=== PATIENT | male | born 1955 | race Two or more races ===

== ENCOUNTER 2017-05-11 19:19 | Inpatient (IN) | payer MEDICARE, MEDICAID ==
[~2017-05-11] VITALS: Ht 185.4 cm; Wt 86.2 kg
[2017-05-11 19:20] VITALS: BP 166/80
[2017-05-11] MEDS ORDERED: ASPIR 8181 MG GT (19:34)
[2017-05-11] MEDS ORDERED: VITAMIN C500 M1 GT (19:34)
[2017-05-11] MEDS ORDERED: ATORVASTATIN CA10 MG GT (19:34)
[2017-05-11] MEDS ORDERED: CARDIZEM30 M1 PO (19:34)
[2017-05-11] MEDS ORDERED: VITAMIN D35000 UNIT GT (19:34)
[2017-05-11] MEDS ORDERED: SYNTHROID25 MCG GT (19:34)
[2017-05-11] MEDS ORDERED: LISINOPRIL40 MG GT (19:34)
[2017-05-11] MEDS ORDERED: HYDRALAZINE HC100 MG GT (19:34)
[2017-05-11] MEDS ORDERED: CLONIDINE1 EAC1 TD (19:34)
[2017-05-11] MEDS ORDERED: METOPROLOL SUC100 MG GT (19:34)
[2017-05-11] MEDS ORDERED: FERROUS SU220 MG/53 GT (19:34)
[2017-05-11] MEDS ORDERED: OMEPRAZOLE20 M3 GT (19:34)
[2017-05-11] MEDS ORDERED: METFORMIN HCL500 M1 GT (19:34)
[2017-05-11] MEDS ORDERED: Unasyn 3gm Inj ONE (19:58)
[2017-05-11 20:04] LABS: BASOPHILS % (AUTO) 0.8 % (0.0-2.0); EOSINOPHILS % (AUTO) 2.9 % (0.0-3.0); LYMPHOCYTES % (AUTO) 16.7 % (20.0-45.0); MEAN CORPUSCULAR HEMOGLOBIN 27.8 PG (27.0-31.0); MEAN CORPUSCULAR HGB CONC 29.8 G/DL (32.0-36.0); MEAN CORPUSCULAR VOLUME 93 FL (80-99); MEAN PLATELET VOLUME 6.3 FL (6.5-10.1); MONOCYTES % (AUTO) 5.2 % (1.0-10.0); NEUTROPHILS % (AUTO) 74.4 % (45.0-75.0); PLATELET COUNT 287 K/UL (150-450); RED BLOOD COUNT 4.31 M/UL (4.70-6.10); RED CELL DISTRIBUTION WIDTH 14.1 % (11.6-14.8); WHITE BLOOD COUNT 9.9 K/UL (4.8-10.8)
[2017-05-11] MEDS: Ampicillin/Sulbactam Sod 3 GM in NS 110 ML IV SCH (20:14)
[2017-05-11 20:19] LABS: ANION GAP 9 mmol/L (5-15); CALCIUM 9.2 MG/DL (8.5-10.1); CARBON DIOXIDE 30 MMOL/L (21-32); CHLORIDE 115 MMOL/L (98-107); GLOMERULAR FILTRATION RATE 33.8 mL/min (>60); POTASSIUM 4.5 MMOL/L (3.5-5.1); SODIUM 153 MMOL/L (136-145)
[2017-05-11 20:20] VITALS: BP 167/78
[2017-05-11 20:34] LABS: ALANINE AMINOTRANSFERASE 37 U/L (12-78); ALBUMIN/GLOBULIN RATIO 0.9 (1.0-2.7); ASPARTATE AMINO TRANSFERASE 19 U/L (15-37); CKMB 1.5 NG/ML (0.0-3.6); MAGNESIUM 2.3 MG/DL (1.8-2.4); PHOSPHORUS 3.7 MG/DL (2.5-4.9); TOTAL PROTEIN 6.9 G/DL (6.4-8.2)
[2017-05-11 20:36] LABS: REFLEX LACTIC ACID YES OR NO YES
[2017-05-11 21:43] LABS: APPEARANCE,URINE CLEAR; KETONES,URINE NEGATIVE (NEGATIVE); LEUKOCYTE ESTERASE ,URINE 1+ (NEGATIVE); NITRITE,URINE NEGATIVE (NEGATIVE); PH,URINE 7 (4.5-8.0); PROTEIN,URINE 3+ (NEGATIVE); UROBILINOGEN,URINE NORMAL MG/DL (0.0-1.0)
[2017-05-11] MEDS ORDERED: Morphine Sulfate 2mg/ml Inj IVP PRN (21:45)
[2017-05-11] MEDS ORDERED: Miralax 17gm pkt ORAL PRN (21:45)
[2017-05-11] MEDS ORDERED: Nitroglycerin Subl 0.4mg tab SL PRN (21:45)
[2017-05-11] MEDS ORDERED: Mylanta II UD 30ml ORAL PRN (21:45)
[2017-05-11] MEDS ORDERED: Albuterol/Ipratropium 3ml neb HHN PRN (21:45)
[2017-05-11] MEDS ORDERED: Enalaprilat 2.5mg/2ml Inj IV PRN (21:45)
[2017-05-11] MEDS ORDERED: Ketorolac 30mg Inj IV PRN (21:45)
[2017-05-11 21:50] VITALS: BP 162/74
[2017-05-11 21:54] LABS: BACTERIA,URINE FEW /HPF; SQUAMOUS EPITHELIAL CELL,UR OCCASIONAL /LPF (NONE/OCC)
--- NOTE | 2017-05-11 22:11 | Emergency Room Report ---
History of Present Illness General Chief Complaint: Altered Mental Status Source: Medical Record, EMS, Caregiver Present Illness HPI Patient is a 62-year-old male presented after acute onset of altered mental status. Patient reportedly had normally verbal and somewhat confused. The patient poorly had acute onset of alteration of his mental status. Patient not to been have sick prior to the episode of altered mental status. Patient had not been having any fever. Patient was noted to be having difficulty with speech. He is G-tube dependent. History is limited by patient's mental status Allergies: Coded Allergies: No Known Allergies (Unverified , 05/11/17) Patient History Past Medical History: see triage record Reviewed Nursing Documentation: PMH: Agreed, PSxH: Agreed Nursing Documentation-PMH Hx Hypertension: Yes - atherosclerosis Hx Asthma: Yes - hypothyroidism, vit d deficiency, hyperlipidemia Hx Diabetes: Yes - type 2 dm Hx Cerebrovascular Accident: Yes - hemiplegia, hemiparesis right side Review of Systems All Other Systems: limited - by mental status Physical Exam Vital Signs Date Time Temp Pulse Resp B/P (MAP) Pulse Ox O2 Delivery O2 Flow Rate FiO2 05/11/17 19:12 97.7 80 20 166/80 96 Room Air Sp02 EP Interpretation: reviewed, normal General Appearance: alert, mild distress, Chronically Ill Head: atraumatic ENT: normal voice, dry mucus membranes Neck: normal inspection, supple, no bony tend, limited range of motion Respiratory: normal inspection, lungs clear, normal breath sounds, no respiratory distress, no retraction, no wheezing Cardiovascular #1: regular rate, rhythm, no edema Gastrointestinal: normal inspection, normal bowel sounds, non tender, soft, no guarding, no hernia, other - gtube dependent Genitourinary: no CVA tenderness Musculoskeletal: decreased range of motion Neurologic: normal inspection, alert, responsive, aphasia, motor weakness Psychiatric: mood/affect normal Skin: normal inspection, no rash Medical Decision Making Diagnostic Impression: Primary Impression: Altered mental status Additional Impressions: Lactic acidosis Urinary tract infection Hypernatremia Dehydration Diabetes ER Course Patient presented for altered mental status. Differential diagnosis included but was not limited to ischemic stroke, subarachnoid hemorrhage, hypoglycemia, spinal cord injury, neurodegenerative disorder, urinary tract infection, hypoxemia.Because of complexity of patient's case laboratory testing and imaging studies were ordered. The patient was noted to have evidence of the difficulty with speech. CT the head read by radiology showed diffuse atrophy. The patient was given aspirin rectal for possible CVA. The patient admitted for further evaluation and treatment altered mental status. The patient is being admitted to [facility] due to acuity. EKG interpreted by me showed diffuse T wave inversion consistent with recent CVA versus cardiac ischemia. The patient was discussed with Dr. Martina Morales due to primary physician. Labs Test 05/11/17 19:45 05/11/17 20:25 05/11/17 21:30 White Blood Count 9.9 K/UL (4.8-10.8) Red Blood Count 4.31 M/UL (4.70-6.10) Hemoglobin 12.0 G/DL (14.2-18.0) Hematocrit 40.2 % (42.0-52.0) Mean Corpuscular Volume 93 FL (80-99) Mean Corpuscular Hemoglobin 27.8 PG (27.0-31.0) Mean Corpuscular Hemoglobin Concent 29.8 G/DL (32.0-36.0) Red Cell Distribution Width 14.1 % (11.6-14.8) Platelet Count 287 K/UL (150-450) Mean Platelet Volume 6.3 FL (6.5-10.1) Neutrophils (%) (Auto) 74.4 % (45.0-75.0) Lymphocytes (%) (Auto) 16.7 % (20.0-45.0) Monocytes (%) (Auto) 5.2 % (1.0-10.0) Eosinophils (%) (Auto) 2.9 % (0.0-3.0) Basophils (%) (Auto) 0.8 % (0.0-2.0) Prothrombin Time 10.0 SEC (9.30-11.50) Prothromb Time International Ratio 1.0 (0.9-1.1) Activated Partial Thromboplast Time 23 SEC (23-33) Sodium Level 153 MMOL/L (136-145) Potassium Level 4.5 MMOL/L (3.5-5.1) Chloride Level 115 MMOL/L (98-107) Carbon Dioxide Level 30 MMOL/L (21-32) Anion Gap 9 mmol/L (5-15) Blood Urea Nitrogen 69 mg/dL (7-18) Creatinine 2.0 MG/DL (0.55-1.30) Estimat Glomerular Filtration Rate 33.8 mL/min (>60) Glucose Level 183 MG/DL (74-106) Calcium Level 9.2 MG/DL (8.5-10.1) Phosphorus Level 3.7 MG/DL (2.5-4.9) Magnesium Level 2.3 MG/DL (1.8-2.4) Total Bilirubin 0.2 MG/DL (0.2-1.0) Aspartate Amino Transf (AST/SGOT) 19 U/L (15-37) Alanine Aminotransferase (ALT/SGPT) 37 U/L (12-78) Alkaline Phosphatase 90 U/L (46-116) Total Creatine Kinase 59 U/L (26-308) Creatine Kinase MB 1.5 NG/ML (0.0-3.6) Creatine Kinase MB Relative Index 2.5 Troponin I 0.073 ng/mL (0.000-0.056) Total Protein 6.9 G/DL (6.4-8.2) Albumin 3.2 G/DL (3.4-5.0) Globulin 3.7 g/dL Albumin/Globulin Ratio 0.9 (1.0-2.7) Lactic Acid Level 2.50 mmol/L (0.66-2.22) Urine Color Pale yellow Urine Appearance Clear Urine pH 7 (4.5-8.0) Urine Specific [place] 1.010 (1.005-1.035) Urine Protein 3+ (NEGATIVE) Urine Glucose (UA) Negative (NEGATIVE) Urine Ketones Negative (NEGATIVE) Urine Occult Blood 1+ (NEGATIVE) Urine Nitrite Negative (NEGATIVE) Urine Bilirubin Negative (NEGATIVE) Urine Urobilinogen Normal MG/DL (0.0-1.0) Urine Leukocyte Esterase 1+ (NEGATIVE) Urine RBC 2-4 /HPF (0 - 0) Urine WBC 5-10 /HPF (0 - 0) Urine Squamous Epithelial Cells Occasional /LPF Urine Bacteria Few /HPF (NONE) Last Vital Signs Date Time Temp Pulse Resp B/P (MAP) Pulse Ox O2 Delivery O2 Flow Rate FiO2 05/11/17 19:12 97.7 80 20 166/80 96 Room Air Status: unchanged Disposition: ADMITTED INPATIENT Condition: Serious Alistair Ley May 11, 2017 22:11
[2017-05-12] VITALS (7 sets, daily range): BP systolic 156–193; BP diastolic 83–108
[2017-05-12] MEDS ORDERED: Unasyn 3gm Inj ONE (01:48)
[2017-05-12] MEDS: D5 1/2NS 1,000 ML IV SCH ×3 (01:53→21:35)
[2017-05-12] MEDS: Ampicillin/Sulbactam Sod 3 GM in NS 110 ML IV SCH (01:53)
[2017-05-12] MEDS ORDERED: TRADJENTA5 MG GT (01:54)
[2017-05-12] MEDS ORDERED: MULTI-DELYN237 ML GT (01:54)
[2017-05-12] MEDS ORDERED: COLACE100 MG GT (02:15)
[2017-05-12] MEDS ORDERED: MILK OF MA400 MG/51 GT (02:15)
[2017-05-12] MEDS ORDERED: HUMULIN R100 UNIT/1 SUBQ (02:15)
[2017-05-12] MEDS ORDERED: LEVEMIR FL100 UNIT/1 SUBQ (02:15)
[2017-05-12] MEDS ORDERED: DULCOLAX10 MG RC (02:15)
[2017-05-12] MEDS ORDERED: TYLENOL EXTRA500 MG GT (02:15)
[2017-05-12] MEDS ORDERED: TYLENOL325 MG GT (02:15)
[2017-05-12] MEDS ORDERED: FLEET ENEMA133 ML RECTAL (02:15)
[2017-05-12 04:53] LABS: BASOPHILS % (AUTO) 0.7 % (0.0-2.0); LYMPHOCYTES % (AUTO) 18.8 % (20.0-45.0); MEAN CORPUSCULAR HGB CONC 32.4 G/DL (32.0-36.0); MEAN CORPUSCULAR VOLUME 92 FL (80-99); MEAN PLATELET VOLUME 6.9 FL (6.5-10.1); MONOCYTES % (AUTO) 4.7 % (1.0-10.0); NEUTROPHILS % (AUTO) 71.8 % (45.0-75.0); PLATELET COUNT 280 K/UL (150-450); RED BLOOD COUNT 3.99 M/UL (4.70-6.10); RED CELL DISTRIBUTION WIDTH 14.7 % (11.6-14.8); WHITE BLOOD COUNT 8.6 K/UL (4.8-10.8)
[2017-05-12 05:25] LABS: ALANINE AMINOTRANSFERASE 32 U/L (12-78); ALBUMIN/GLOBULIN RATIO 0.8 (1.0-2.7); ANION GAP 10 mmol/L (5-15); ASPARTATE AMINO TRANSFERASE 18 U/L (15-37); CALCIUM 8.6 MG/DL (8.5-10.1); CARBON DIOXIDE 27 MMOL/L (21-32); CHLORIDE 116 MMOL/L (98-107); CHOLESTEROL 167 MG/DL (< 200); CHOLESTEROL/HDL RATIO 4.5 (3.3-4.4); CREATININE 1.8 MG/DL (0.55-1.30); GLOMERULAR FILTRATION RATE 38.2 mL/min (>60); POTASSIUM 3.9 MMOL/L (3.5-5.1); SODIUM 153 MMOL/L (136-145); THYROID STIMULATING HORMONE 1.606 uiU/mL (0.358-3.740); TOTAL PROTEIN 6.6 G/DL (6.4-8.2)
[2017-05-12] MEDS: NovoLOG Insulin Flexpen SUBQ SCH ×4 (07:02→23:47)
[2017-05-12] MEDS ORDERED: Metoprolol Succinate XL 100mg tab ORAL SCH (09:00)
--- NOTE | 2017-05-12 09:06 | Consultation ---
History of Present Illness General Date patient seen: May 12, 2017 Chief Complaint: Altered Mental Status Referring physician: Dr. Morales Reason for Consultation: inpateint management Present Illness HPI 62-year-old male with hx of HTN, CVA, PEG, bed bound, custodial resident, hemiplegia, presented after acute onset of altered mental status and was somewhat confused. Patient had not been having any fever. He was found to be in renal failure with hyperglycemia. He also had increased troponin. He is admitted to [facility] for further evaluation. He looks comfortable, somnolent. Not responding to verbal stimuli Allergies: Coded Allergies: No Known Allergies (Unverified , 05/11/17) Medication History Scheduled Ascorbic Acid* (Vitamin C*), 500 MG GT TWICE A DAY, (Reported) Aspirin* (Aspir 81*), 81 MG GT DAILY, (Reported) Atorvastatin Calcium* (Lipitor*), 10 MG GT BEDTIME, (Reported) Cholecalciferol (Vitamin D3) (Vitamin D3), 5,000 UNIT GT weekly, (Reported) Diltiazem Hcl* (Cardizem*), Unknown Dose PO QID, (Reported) Docusate Sodium* (Colace*), 100 MG GT DAILY, (Reported) Ferrous Sulfate (Ferrous Sulfate), 220 MG GT BID, (Reported) Hydralazine Hcl* (Hydralazine Hcl*), 100 MG GT BID, (Reported) Insulin Detemir (Levemir Flexpen), 24 SUBQ EVERY 12 HOURS, (Reported) Insulin Regular, Human (Humulin R), 0 SUBQ BEFORE MEALS AND HS, (Reported) Levothyroxine Sodium* (Synthroid*), 50 MCG GT DAILY, (Reported) Linagliptin (Tradjenta), 5 MG GT DAILY, (Reported) Lisinopril* (Lisinopril*), 40 MG GT DAILY, (Reported) Metformin Hcl* (Metformin Hcl*), 500 MG GT THREE TIMES A DAY, (Reported) Metoprolol Succinate* (Metoprolol Succinate*), 100 MG GT BID, (Reported) Multivitamin Liquid* (Multi-Delyn*), 5 ML GT DAILY, (Reported) Na Phos,M-B/Na Phos,Di-Ba* (Fleet Enema*), 133 ML RECTAL PRN, (Reported) Omeprazole (Omeprazole), 20 MG GT DAILY, (Reported) Scheduled PRN Acetaminophen (Tylenol), 325 MG GT Q6H PRN for Prn Pain/Headache/Temp > 101, ( Reported) Acetaminophen* (Tylenol Extra Strength*), 500 MG GT Q6H PRN for Mild Pain/Temp > 100.5, (Reported) Bisacodyl (Dulcolax), 10 MG RC DAILY PRN for Constipation, (Reported) Magnesium Hydroxide* (Milk Of Magnesia*), 30 ML GT BEDTIME PRN for Constipation, (Reported) Miscellaneous Medications Clonidine (Clonidine), 1 EACH TD, (Reported) Patient History Healthcare decision maker ZENA MARR Resuscitation status Full Code Advanced Directive on File No Past Medical/Surgical History Past Medical/Surgical History: (1) History of CVA (cerebrovascular accident) (2) Hypertension (3) Feeding by G-tube (4) Diabetes Review of Systems All Other Systems: negative except mentioned in HPI Physical Exam General Appearance: WD/WN, no apparent distress Lines, tubes and drains: peripheral, central line HEENT: normocephalic, atraumatic Neck: non-tender, normal alignment Respiratory/Chest: chest wall non-tender, lungs clear, normal breath sounds Breasts: no masses Cardiovascular/Chest: normal peripheral pulses, normal rate Genitourinary/Rectal: normal rectal exam Extremities: normal range of motion Last 24 Hour Vital Signs Date Time Temp Pulse Resp B/P (MAP) Pulse Ox O2 Delivery O2 Flow Rate FiO2 05/12/17 05:30 18 156/94 96 Room Air 05/12/17 04:46 197/101 05/12/17 04:00 99.0 98 18 193/101 96 Room Air 05/12/17 04:00 95 05/12/17 00:00 85 05/12/17 00:00 85 05/12/17 00:00 98.2 89 20 156/83 96 Room Air 05/11/17 22:20 97.6 80 16 162/74 97 Room Air 05/11/17 21:50 97.6 80 16 162/74 97 Room Air 05/11/17 20:20 82 14 167/78 98 Room Air 05/11/17 19:20 97.7 20 166/80 96 Room Air 05/11/17 19:12 97.7 80 20 166/80 96 Room Air Intake and Output 11/25/17 11/26/17 19:00 07:00 Intake Total 100 ml Balance 100 ml IV Total 100 ml Laboratory Tests Test 05/11/17 19:45 05/11/17 20:25 05/11/17 21:30 05/12/17 04:15 White Blood Count 9.9 K/UL (4.8-10.8) 8.6 K/UL (4.8-10.8) Red Blood Count 4.31 M/UL (4.70-6.10) L 3.99 M/UL (4.70-6.10) L Hemoglobin 12.0 G/DL (14.2-18.0) L 12.0 G/DL (14.2-18.0) L Hematocrit 40.2 % (42.0-52.0) L 36.9 % (42.0-52.0) L Mean Corpuscular Volume 93 FL (80-99) 92 FL (80-99) Mean Corpuscular Hemoglobin 27.8 PG (27.0-31.0) 30.0 PG (27.0-31.0) Mean Corpuscular Hemoglobin Concent 29.8 G/DL (32.0-36.0) L 32.4 G/DL (32.0-36.0) Red Cell Distribution Width 14.1 % (11.6-14.8) 14.7 % (11.6-14.8) Platelet Count 287 K/UL (150-450) 280 K/UL (150-450) Mean Platelet Volume 6.3 FL (6.5-10.1) L 6.9 FL (6.5-10.1) Neutrophils (%) (Auto) 74.4 % (45.0-75.0) 71.8 % (45.0-75.0) Lymphocytes (%) (Auto) 16.7 % (20.0-45.0) L 18.8 % (20.0-45.0) L Monocytes (%) (Auto) 5.2 % (1.0-10.0) 4.7 % (1.0-10.0) Eosinophils (%) (Auto) 2.9 % (0.0-3.0) 4.0 % (0.0-3.0) H Basophils (%) (Auto) 0.8 % (0.0-2.0) 0.7 % (0.0-2.0) Prothrombin Time 10.0 SEC (9.30-11.50) Prothromb Time International Ratio 1.0 (0.9-1.1) Activated Partial Thromboplast Time 23 SEC (23-33) Sodium Level 153 MMOL/L (136-145) H 153 MMOL/L (136-145) H Potassium Level 4.5 MMOL/L (3.5-5.1) 3.9 MMOL/L (3.5-5.1) Chloride Level 115 MMOL/L (98-107) H 116 MMOL/L (98-107) H Carbon Dioxide Level 30 MMOL/L (21-32) 27 MMOL/L (21-32) Anion Gap 9 mmol/L (5-15) 10 mmol/L (5-15) Blood Urea Nitrogen 69 mg/dL (7-18) H 57 mg/dL (7-18) H Creatinine 2.0 MG/DL (0.55-1.30) H 1.8 MG/DL (0.55-1.30) H Estimat Glomerular Filtration Rate 33.8 mL/min (>60) 38.2 mL/min (>60) Glucose Level 183 MG/DL (74-106) H 239 MG/DL (74-106) H Lactic Acid Level 2.60 mmol/L (0.66-2.22) H 2.50 mmol/L (0.66-2.22) H Uric Acid 6.0 MG/DL (2.6-7.2) Calcium Level 9.2 MG/DL (8.5-10.1) 8.6 MG/DL (8.5-10.1) Phosphorus Level 3.7 MG/DL (2.5-4.9) Magnesium Level 2.3 MG/DL (1.8-2.4) Total Bilirubin 0.2 MG/DL (0.2-1.0) 0.2 MG/DL (0.2-1.0) Aspartate Amino Transf (AST/SGOT) 19 U/L (15-37) 18 U/L (15-37) Alanine Aminotransferase (ALT/SGPT) 37 U/L (12-78) 32 U/L (12-78) Alkaline Phosphatase 90 U/L (46-116) 82 U/L (46-116) Total Creatine Kinase 59 U/L (26-308) Creatine Kinase MB 1.5 NG/ML (0.0-3.6) Creatine Kinase MB Relative Index 2.5 Troponin I 0.073 ng/mL (0.000-0.056) 0.059 ng/mL (0.000-0.056) Total Protein 6.9 G/DL (6.4-8.2) 6.6 G/DL (6.4-8.2) Albumin 3.2 G/DL (3.4-5.0) L 3.0 G/DL (3.4-5.0) L Globulin 3.7 g/dL 3.6 g/dL Albumin/Globulin Ratio 0.9 (1.0-2.7) L 0.8 (1.0-2.7) L Urine Color Pale yellow Urine Appearance Clear Urine pH 7 (4.5-8.0) Urine Specific [place] 1.010 (1.005-1.035) Urine Protein 3+ (NEGATIVE) H Urine Glucose (UA) Negative (NEGATIVE) Urine Ketones Negative (NEGATIVE) Urine Occult Blood 1+ (NEGATIVE) H Urine Nitrite Negative (NEGATIVE) Urine Bilirubin Negative (NEGATIVE) Urine Urobilinogen Normal MG/DL (0.0-1.0) Urine Leukocyte Esterase 1+ (NEGATIVE) H Urine RBC 2-4 /HPF (0 - 0) H Urine WBC 5-10 /HPF (0 - 0) H Urine Squamous Epithelial Cells Occasional /LPF Urine Bacteria Few /HPF (NONE) Urine Eosinophils Negative Urine Random Sodium 47 MEQ/L (20-110) Urine Potassium Timed 62 mmol/L (12-62) Urine Opiates Screen Negative (NEGATIVE) Urine Barbiturates Screen Negative (NEGATIVE) Phencyclidine (PCP) Screen Negative (NEGATIVE) Urine Amphetamines Screen Negative (NEGATIVE) Urine Benzodiazepines Screen Negative (NEGATIVE) Urine Cocaine Screen Negative (NEGATIVE) Urine Marijuana (THC) Screen Negative (NEGATIVE) Hemoglobin A1c 7.0 % (4.3-6.0) H Triglycerides Level 307 MG/DL (30-150) H Cholesterol Level 167 MG/DL (< 200) LDL Cholesterol 80 mg/dL (<100) HDL Cholesterol 37 MG/DL (40-60) L Cholesterol/HDL Ratio 4.5 (3.3-4.4) H Thyroid Stimulating Hormone (TSH) 1.606 uiU/mL (0.358-3.740) Height (Feet): 6 Height (Inches): 1.00 Weight (Pounds): 190 Medications Current Medications Medications (Trade) Dose Ordered Sig/Willem Route PRN Reason Start Time Stop Time Status Last Admin Dose Admin Acetaminophen (Tylenol) 650 mg Q4H PRN ORAL T>100.5 F 05/11/17 21:45 06/10/17 21:44 Al Hydroxide/Mg Hydroxide (Mylanta II) 30 ml Q6H PRN ORAL dyspepsia 05/11/17 21:45 06/10/17 21:44 Albuterol/ Ipratropium (Albuterol/ Ipratropium) 3 ml Q4H PRN HHN Shortness of Breath 05/11/17 21:45 05/16/17 21:44 Ampicillin Sodium/ Sulbactam Sodium 3 gm/Sodium Chloride 110 ml @ 220 mls/hr Q6HR IVPB 05/12/17 09:00 05/19/17 08:59 Clonidine HCl (Catapres) 0.1 mg Q4H PRN ORAL sbp more than 160 05/11/17 21:45 06/10/17 21:44 05/12/17 04:46 Dextrose (Dextrose 50%) STAT PRN IV Hypoglycemia 05/11/17 21:45 06/10/17 21:44 Dextrose/Sodium Chloride 1,000 ml @ 100 mls/hr Q10H IV 05/12/17 02:00 06/11/17 01:59 05/12/17 01:53 Enalaprilat (Vasotec) 2.5 mg Q4H PRN IV sbp more than 200 05/11/17 21:45 06/10/17 21:44 Heparin Sodium (Porcine) (Heparin 5000 units/ml) 5,000 units EVERY 12 HOURS SUBQ 05/12/17 09:00 06/11/17 08:59 Insulin Aspart (NovoLOG) BEFORE MEALS AND HS SUBQ 05/12/17 06:30 06/11/17 06:29 05/12/17 07:02 Ketorolac Tromethamine (Toradol 30mg) 30 mg Q6H PRN IV Moderate Pain (Pain Scale 4-6) 05/11/17 21:45 05/16/17 21:44 Levothyroxine Sodium (Synthroid) 50 mcg ACBREAKFAST ORAL 05/12/17 06:30 06/11/17 06:29 05/12/17 07:02 Metoprolol Succinate (Toprol XL) 100 mg DAILY ORAL 05/12/17 09:00 06/11/17 08:59 Morphine Sulfate (Morphine Sulfate) 2 mg Q4H PRN IVP Severe Pain (Pain Scale 7-10) 05/11/17 21:45 05/18/17 21:44 Nitroglycerin (Ntg) 0.4 mg Q5M X 3 DOSES PRN SL Prn Chest Pain 05/11/17 21:45 06/10/17 21:44 Ondansetron HCl (Zofran) 4 mg Q6H PRN IVP Nausea & Vomiting 05/11/17 21:45 06/10/17 21:44 Polyethylene Glycol (Miralax) 17 gm HSPRN PRN ORAL Constipation 05/11/17 21:45 06/10/17 21:44 Temazepam (Restoril) 15 mg HSPRN PRN ORAL Insomnia 05/11/17 21:45 05/18/17 21:44 Assessment/Plan Problem List: (1) Acute encephalopathy ICD Codes: G93.40 - Encephalopathy, unspecified SNOMED: 3342240 (2) Non-ST elevation (NSTEMI) myocardial infarction ICD Codes: I21.4 - Non-ST elevation (NSTEMI) myocardial infarction SNOMED: 643777193 (3) ATN (acute tubular necrosis) ICD Codes: N17.0 - Acute kidney failure with tubular necrosis SNOMED: 53333633 (4) Acute hyperglycemia ICD Codes: R73.9 - Hyperglycemia, unspecified SNOMED: 853446249 (5) Feeding by G-tube ICD Codes: Z93.1 - Gastrostomy status SNOMED: 076605385, 979986412 (6) Hypertension ICD Codes: I10 - Essential (primary) hypertension SNOMED: 81818220 Assessment/Plan iv fluids check electrolytes, urine and serum sliding scale echo troponin alvarado cultures dvt prophylaxis JESSE ZAVALA May 12, 2017 09:06
--- NOTE | 2017-05-12 09:49 | Consultation ---
Consult Note Consult Note Patient is a 62-year-old male presented after acute onset of altered mental status. Patient reportedly had normally verbal and somewhat confused. The patient poorly had acute onset of alteration of his mental status. Patient not to been have sick prior to the episode of altered mental status. Patient had not been having any fever. Patient was noted to be having difficulty with speech. He is G-tube dependent. History is limited by patient's mental status No Known Allergies (Unverified , 05/11/17) Hx Hypertension: Yes - atherosclerosis Hx Asthma: Yes - hypothyroidism, vit d deficiency, hyperlipidemia Hx Diabetes: Yes - type 2 dm Hx Cerebrovascular Accident: Yes - hemiplegia, hemiparesis right side All Other Systems: limited - by mental status Vital Signs Date Time Temp Pulse Resp B/P (MAP) Pulse Ox O2 Delivery O2 Flow Rate FiO2 05/11/17 19:12 97.7 80 20 166/80 96 Room Air Patient examined- data reviewed Assessment/Plan Renal: Dehydration and Hypernatremia Renal failure- DM Other: (1) Acute encephalopathy (2) Non-ST elevation (NSTEMI) myocardial infarction (3) Lactic acidosis and UTI (4) Acute hyperglycemia (5) Feeding by G-tube (6) Hypertension Plan; Hydrate- Adjust BP meds and Electrolytes avoid nephrotoxics [facility] GARCÍA READ May 12, 2017 09:49
[2017-05-12] MEDS: Ampicillin/Sulbactam Sod 3 GM in NS 110 ML IVPB SCH ×4 (10:03→23:45)
--- NOTE | 2017-05-12 10:03 | Diagnostic Imaging Report ---
Indication: Shortness of breath Technique: XRAY CHEST 1 V Comparison: None Findings: Cardiac silhouette is borderline prominent. There is no consolidation, pneumothorax or pleural effusion. Clips are noted in the right upper quadrant. Osseous structures demonstrate no acute abnormality. Impression: No acute cardiopulmonary disease.
[2017-05-12] MEDS: Heparin 5000 units/ml inj SUBQ SCH ×2 (10:05→20:35)
[2017-05-12] MEDS: Aspirin Baby 81mg GT SCH (10:21)
[2017-05-12] MEDS: Lisinopril 20mg tab GT SCH ×2 (10:22→17:20)
--- NOTE | 2017-05-12 10:31 | Diagnostic Imaging Report ---
Indication: Altered mental status Technique: Continuous helical CT scanning of the head was performed utilizing automated exposure control without intravenous contrast material. Axial and coronal reconstructions were obtained. Comparison: None CT dose: Total DLP 1541 mGycm; CTDI vol 70.4 mGy Findings: There is no acute intracranial hemorrhage, mass effect or cortical edema. The ventricles, cisterns and sulci are prominent consistent with atrophy. Periventricular hypoattenuation is seen, a nonspecific finding. Cerebellar atrophy is also noted. The sella is grossly unremarkable. There is a chronic appearing right frontal infarct. Visualized mastoid air cells and paranasal sinuses are unremarkable. No focal lesions of the bony calvarium or soft tissues of the scalp are seen. Impression: No evidence of acute intracranial hemorrhage, mass effect or cortical edema. MRI may be obtained for more sensitive evaluation as clinically indicated. Cerebral and cerebellar atrophy greater than expected for age. Clinical correlation recommended. Mild periventricular hypoattenuation suggestive of chronic ischemic microvascular changes. Small area of right frontal encephalomalacia suggestive of old infarct. The CT scanner at [facility] is accredited by the [employer] and the scans are performed using protocols designed to limit radiation exposure to as low as reasonably achievable to attain images of sufficient resolution adequate for diagnostic evaluation.
--- NOTE | 2017-05-12 11:00 | Diagnostic Imaging Report ---
Indication: Abdominal pain Technique: Renal ultrasound Comparison: None Findings: Right kidney measures 11.5 cm in length. Left kidney measures 12.0 cm in length. There is slight fullness of the right renal pelvis. Visualized IVC is unremarkable. There is bladder wall thickening. The prostate is prominent measuring 4.6 x 4.6 cm. Prostate calcification is seen. Impression: Right renal pelviectasis. Further evaluation recommended as indicated. Mild diffuse bladder wall thickening. Clinical correlation recommended. Prominent prostate.
[2017-05-12] MEDS: Docusate 100mg/10ml Liq GT SCH ×2 (13:48→17:19)
[2017-05-12] MEDS ORDERED: D5 1/2NS 1000ml IV ONE (15:13)
[2017-05-12] MEDS ORDERED: NS 500ML ONE (15:13)
[2017-05-12] MEDS ORDERED: Tubing IV Secondary IV ONE (15:13)
--- NOTE | 2017-05-12 16:24 | Cardiology Progress Note ---
Assessment/Plan Assessment/Plan [id number] Objective Last 24 Hour Vital Signs Date Time Temp Pulse Resp B/P (MAP) Pulse Ox O2 Delivery O2 Flow Rate FiO2 05/12/17 12:00 97.8 98 20 165/93 96 Room Air 05/12/17 11:49 81 05/12/17 10:22 188/101 05/12/17 10:03 188/101 05/12/17 08:00 96.9 98 20 188/101 95 Room Air 05/12/17 08:00 94 05/12/17 05:30 18 156/94 96 Room Air 05/12/17 04:46 197/101 05/12/17 04:00 99.0 98 18 193/101 96 Room Air 05/12/17 04:00 95 05/12/17 00:00 85 05/12/17 00:00 85 05/12/17 00:00 98.2 89 20 156/83 96 Room Air 05/11/17 22:20 97.6 80 16 162/74 97 Room Air 05/11/17 21:50 97.6 80 16 162/74 97 Room Air 05/11/17 20:20 82 14 167/78 98 Room Air 05/11/17 19:20 97.7 20 166/80 96 Room Air 05/11/17 19:12 97.7 80 20 166/80 96 Room Air Intake and Output 05/12/17 05/13/17 19:00 07:00 Intake Total 1095 ml Balance 1095 ml IV Total 1095 ml Laboratory Tests Test 05/11/17 19:45 05/11/17 20:25 05/11/17 21:30 05/12/17 04:15 White Blood Count 9.9 K/UL (4.8-10.8) 8.6 K/UL (4.8-10.8) Red Blood Count 4.31 M/UL (4.70-6.10) L 3.99 M/UL (4.70-6.10) L Hemoglobin 12.0 G/DL (14.2-18.0) L 12.0 G/DL (14.2-18.0) L Hematocrit 40.2 % (42.0-52.0) L 36.9 % (42.0-52.0) L Mean Corpuscular Volume 93 FL (80-99) 92 FL (80-99) Mean Corpuscular Hemoglobin 27.8 PG (27.0-31.0) 30.0 PG (27.0-31.0) Mean Corpuscular Hemoglobin Concent 29.8 G/DL (32.0-36.0) L 32.4 G/DL (32.0-36.0) Red Cell Distribution Width 14.1 % (11.6-14.8) 14.7 % (11.6-14.8) Platelet Count 287 K/UL (150-450) 280 K/UL (150-450) Mean Platelet Volume 6.3 FL (6.5-10.1) L 6.9 FL (6.5-10.1) Neutrophils (%) (Auto) 74.4 % (45.0-75.0) 71.8 % (45.0-75.0) Lymphocytes (%) (Auto) 16.7 % (20.0-45.0) L 18.8 % (20.0-45.0) L Monocytes (%) (Auto) 5.2 % (1.0-10.0) 4.7 % (1.0-10.0) Eosinophils (%) (Auto) 2.9 % (0.0-3.0) 4.0 % (0.0-3.0) H Basophils (%) (Auto) 0.8 % (0.0-2.0) 0.7 % (0.0-2.0) Prothrombin Time 10.0 SEC (9.30-11.50) Prothromb Time International Ratio 1.0 (0.9-1.1) Activated Partial Thromboplast Time 23 SEC (23-33) Sodium Level 153 MMOL/L (136-145) H 153 MMOL/L (136-145) H Potassium Level 4.5 MMOL/L (3.5-5.1) 3.9 MMOL/L (3.5-5.1) Chloride Level 115 MMOL/L (98-107) H 116 MMOL/L (98-107) H Carbon Dioxide Level 30 MMOL/L (21-32) 27 MMOL/L (21-32) Anion Gap 9 mmol/L (5-15) 10 mmol/L (5-15) Blood Urea Nitrogen 69 mg/dL (7-18) H 57 mg/dL (7-18) H Creatinine 2.0 MG/DL (0.55-1.30) H 1.8 MG/DL (0.55-1.30) H Estimat Glomerular Filtration Rate 33.8 mL/min (>60) 38.2 mL/min (>60) Glucose Level 183 MG/DL (74-106) H 239 MG/DL (74-106) H Lactic Acid Level 2.60 mmol/L (0.66-2.22) H 2.50 mmol/L (0.66-2.22) H Uric Acid 6.0 MG/DL (2.6-7.2) Calcium Level 9.2 MG/DL (8.5-10.1) 8.6 MG/DL (8.5-10.1) Phosphorus Level 3.7 MG/DL (2.5-4.9) Magnesium Level 2.3 MG/DL (1.8-2.4) Total Bilirubin 0.2 MG/DL (0.2-1.0) 0.2 MG/DL (0.2-1.0) Aspartate Amino Transf (AST/SGOT) 19 U/L (15-37) 18 U/L (15-37) Alanine Aminotransferase (ALT/SGPT) 37 U/L (12-78) 32 U/L (12-78) Alkaline Phosphatase 90 U/L (46-116) 82 U/L (46-116) Total Creatine Kinase 59 U/L (26-308) Creatine Kinase MB 1.5 NG/ML (0.0-3.6) Creatine Kinase MB Relative Index 2.5 Troponin I 0.073 ng/mL (0.000-0.056) 0.059 ng/mL (0.000-0.056) Total Protein 6.9 G/DL (6.4-8.2) 6.6 G/DL (6.4-8.2) Albumin 3.2 G/DL (3.4-5.0) L 3.0 G/DL (3.4-5.0) L Globulin 3.7 g/dL 3.6 g/dL Albumin/Globulin Ratio 0.9 (1.0-2.7) L 0.8 (1.0-2.7) L Urine Color Pale yellow Urine Appearance Clear Urine pH 7 (4.5-8.0) Urine Specific [place] 1.010 (1.005-1.035) Urine Protein 3+ (NEGATIVE) H Urine Glucose (UA) Negative (NEGATIVE) Urine Ketones Negative (NEGATIVE) Urine Occult Blood 1+ (NEGATIVE) H Urine Nitrite Negative (NEGATIVE) Urine Bilirubin Negative (NEGATIVE) Urine Urobilinogen Normal MG/DL (0.0-1.0) Urine Leukocyte Esterase 1+ (NEGATIVE) H Urine RBC 2-4 /HPF (0 - 0) H Urine WBC 5-10 /HPF (0 - 0) H Urine Squamous Epithelial Cells Occasional /LPF Urine Bacteria Few /HPF (NONE) Urine Eosinophils Negative Urine Random Sodium 47 MEQ/L (20-110) Urine Potassium Timed 62 mmol/L (12-62) Urine Opiates Screen Negative (NEGATIVE) Urine Barbiturates Screen Negative (NEGATIVE) Phencyclidine (PCP) Screen Negative (NEGATIVE) Urine Amphetamines Screen Negative (NEGATIVE) Urine Benzodiazepines Screen Negative (NEGATIVE) Urine Cocaine Screen Negative (NEGATIVE) Urine Marijuana (THC) Screen Negative (NEGATIVE) Hemoglobin A1c 7.0 % (4.3-6.0) H Triglycerides Level 307 MG/DL (30-150) H Cholesterol Level 167 MG/DL (< 200) LDL Cholesterol 80 mg/dL (<100) HDL Cholesterol 37 MG/DL (40-60) L Cholesterol/HDL Ratio 4.5 (3.3-4.4) H Thyroid Stimulating Hormone (TSH) 1.606 uiU/mL (0.358-3.740) FAB CAMPBELL May 12, 2017 16:24
[2017-05-12] MEDS: Metoprolol Tartrate 50mg tab ORAL SCH (20:34)
[2017-05-13] VITALS (7 sets, daily range): BP systolic 155–194; BP diastolic 77–100
--- NOTE | 2017-05-13 03:30 | Consultation ---
DATE OF CONSULTATION: 05/12/2017 CARDIOLOGY CONSULTATION CONSULTING PHYSICIAN: Isaac Lockwood M.D. REFERRING PHYSICIAN: Reji Mcfarlane M.D. REASON FOR REFERRAL: Abnormal electrocardiogram. HISTORY OF PRESENT ILLNESS: This is an unfortunate gentleman, who is really not able to provide any meaningful history. The patient had been admitted to the hospital because of altered mentation and sepsis. Limited information is available from review of the chart including emergency room physician, who has indicated that the patient presented after acute onset of altered mentation, normal verbal, and somewhat confused. The patient reported he was not sick prior to the episode of altered mentation, has not been having any fevers and not been having any difficulty with speech. He is G-tube dependent, history is very limited. PAST MEDICAL HISTORY: According to the chart at the convalescent facility where he resides and some records from prior hospitalization indicates the patient has had sinus tachycardia, abnormal electrocardiogram with inferior wall myocardial infarction, possibly acute MR and TR, mild degree with ejection fraction of 55%, hypertension, hypernatremia, azotemia, hypovolemia, gastrostomy tube malfunction, dysphagia, hemiplegia and hemiparesis following cerebrovascular accident, chronic kidney disease, diabetes mellitus, multiple sclerosis, osteoporosis, bipolar disorder, depression, anxiety, cardiac arrhythmias, CVA, asthma, constipation, contractures, encephalopathy, embolism and thromboses, anemia, dementia, psychosis, schizophrenia, hypothyroidism, vitamin D deficiency, hyperlipidemia, systemic hypertension, and gastroesophageal reflux disease. MEDICATIONS: Prior to admission include Lipitor 10 mg, lisinopril 40 mg, metformin 500 mg, aspirin 81 mg, Cardizem via NG tube, hydralazine, clonidine, iron sulfate, metoprolol, vitamin D weekly, vitamin C twice a day, omeprazole, and multivitamins. ALLERGIES: There are no reports of allergies to medications. SOCIAL HISTORY: He resides in a convalescent facility. REVIEW OF SYSTEMS: Unable to obtain. PHYSICAL EXAMINATION: GENERAL: Shows to be an elderly gentleman, in no apparent respiratory distress. NECK: Supple. No jugular venous distention. LUNGS: Clear to auscultation and percussion. CARDIAC: Regular rate and rhythm. No heaves or thrills. ABDOMEN: Soft and nontender. Positive bowel sounds. EXTREMITIES: There is no clubbing, cyanosis, nor is there any edema. NEUROLOGICAL: Responsive, but not verbally communicative. LABORATORY AND DIAGNOSTIC DATA: A CT scan of the head was performed that showed no evidence of acute intracranial bleed, mass effects, or edema; cerebral and cerebellar atrophy greater than expected for the age; and frontal encephalomalacia is suggestive of an old infarction. X-ray of the chest, no acute processes and renal ultrasound shows right renal pelviectasis, diffuse bladder wall thickening, and clinical correlation recommended. White count 8.6, hemoglobin 12, and the platelet count 280,000. Sodium was 153, potassium 3.9, chloride 116, bicarbonate 27, BUN is 57, creatinine 1.8, and glucose of 239. Troponin of 0.073 and 0.059. Triglycerides of 300, LDL of 80, and HDL of 37. TSH of 1.6. INR is 1 and PTT of 23. Urinalysis, 5 to 10 WBCs. The patient's electrocardiogram shows sinus rhythm with diffuse T-wave inversions in I, II, aVL, V2, V3, V4, V5 and V6, chronicity of which is unknown, there may be Q-waves in the inferior leads suggestive of old inferior [place]. ASSESSMENT: 1. Abnormal electrocardiogram, chronicity of which is unknown. 2. Abnormal cardiac enzymes of questionable significance in light of renal insufficiency. 3. Renal insufficiency. 4. History of hyperlipidemia. 5. Diabetes mellitus. 6. History of hypertension. 7. History of bipolar disorder. PLAN: This patient was seen in cardiac consultation. Unfortunately, information from the patient is very difficult to obtain. Echocardiogram has been performed. Preliminary report appears to show normal left ventricular systolic function. Further repeating cardiac enzymes will be ordered for tomorrow morning and repeat EKG. Apparently, he has had old data from what appears to be [facility], although [facility] in [place]. Unfortunately, report of EKG is not available nor is there a copy to compare. I would like to obtain a copy of old EKG to help further evaluate the chronicity of the changes on the present EKG and to prevent duplication of testing that may have been recently performed at that facility on or about of 04/27/2017. Isaac Lockwood M.D. DR: WALI JOB#: [id number] CC:
[2017-05-13 05:13] LABS: BASOPHILS % (AUTO) 1.2 % (0.0-2.0); EOSINOPHILS % (AUTO) 8.2 % (0.0-3.0); LYMPHOCYTES % (AUTO) 15.7 % (20.0-45.0); MEAN CORPUSCULAR HEMOGLOBIN 28.8 PG (27.0-31.0); MEAN CORPUSCULAR HGB CONC 31.6 G/DL (32.0-36.0); MEAN CORPUSCULAR VOLUME 91 FL (80-99); MEAN PLATELET VOLUME 7.3 FL (6.5-10.1); MONOCYTES % (AUTO) 5.9 % (1.0-10.0); PLATELET COUNT 252 K/UL (150-450); RED BLOOD COUNT 3.93 M/UL (4.70-6.10); RED CELL DISTRIBUTION WIDTH 13.9 % (11.6-14.8); WHITE BLOOD COUNT 6.6 K/UL (4.8-10.8)
[2017-05-13 05:42] LABS: ALANINE AMINOTRANSFERASE 51 U/L (12-78); ALBUMIN/GLOBULIN RATIO 0.8 (1.0-2.7); ANION GAP 9 mmol/L (5-15); ASPARTATE AMINO TRANSFERASE 34 U/L (15-37); CALCIUM 8.3 MG/DL (8.5-10.1); CARBON DIOXIDE 27 MMOL/L (21-32); CHLORIDE 113 MMOL/L (98-107); CREATININE 1.5 MG/DL (0.55-1.30); GLOMERULAR FILTRATION RATE 47.1 mL/min (>60); PHOSPHORUS 2.8 MG/DL (2.5-4.9); POTASSIUM 3.8 MMOL/L (3.5-5.1); SODIUM 149 MMOL/L (136-145); THYROID STIMULATING HORMONE 3.152 uiU/mL (0.358-3.740); TOTAL PROTEIN 6.4 G/DL (6.4-8.2)
[2017-05-13 05:43] LABS: URIC ACID 5.2 MG/DL (2.6-7.2)
[2017-05-13 05:49] LABS: CRP QUANT < 0.4 mg/dL (0.00-0.90)
[2017-05-13 06:22] LABS: ERYTHROCYTE SEDIMENTATION RATE 58 MM/HR (0-20)
[2017-05-13] MEDS: NovoLOG Insulin Flexpen SUBQ SCH ×3 (06:25→18:36)
[2017-05-13] MEDS: Ampicillin/Sulbactam Sod 3 GM in NS 110 ML IVPB SCH ×3 (06:25→18:41)
--- NOTE | 2017-05-13 06:46 | General Progress Note ---
Assessment/Plan Problem List: (1) Uncontrolled diabetes mellitus ICD Codes: E11.65 - Type 2 diabetes mellitus with hyperglycemia SNOMED: 88327494, 877312173 (2) Altered mental status ICD Codes: R41.82 - Altered mental status, unspecified SNOMED: 990781694 (3) Feeding by G-tube ICD Codes: Z93.1 - Gastrostomy status SNOMED: 778891505, 868089823 (4) History of CVA (cerebrovascular accident) ICD Codes: Z86.73 - Personal history of transient ischemic attack (TIA), and cerebral infarction without residual deficits SNOMED: 167598274 (5) Lactic acidosis ICD Codes: E87.2 - Acidosis SNOMED: 39922603 (6) Dehydration ICD Codes: E86.0 - Dehydration SNOMED: 99141734 (7) ATN (acute tubular necrosis) ICD Codes: N17.0 - Acute kidney failure with tubular necrosis SNOMED: 14421545 (8) Hypothyroidism ICD Codes: E03.9 - Hypothyroidism, unspecified SNOMED: 83535994 Assessment/Plan continue to hold Metformin - due to BOOGIE and lactic acidosis add Levemir 10 units bid continue Novolog sliding scale every 6 hours continue Levothyroxine 50 mcg daily Subjective ROS Limited/Unobtainable: Yes Allergies: Coded Allergies: No Known Allergies (Unverified , 05/11/17) Subjective events noted glucose elevated this morning Objective Last 24 Hour Vital Signs Date Time Temp Pulse Resp B/P (MAP) Pulse Ox O2 Delivery O2 Flow Rate FiO2 05/13/17 05:33 97 Room Air 05/13/17 04:00 97.7 89 19 161/94 99 Room Air 05/13/17 04:00 73 18 Room Air 05/13/17 04:00 87 05/13/17 02:00 97.9 82 20 160/98 99 Room Air 05/13/17 00:00 97.9 80 19 183/90 97 Room Air 05/13/17 00:00 84 05/12/17 23:48 183/90 05/12/17 20:34 88 167/108 05/12/17 20:00 82 05/12/17 20:00 97.7 88 18 167/108 97 Room Air 05/12/17 17:20 183/95 05/12/17 17:19 183/95 05/12/17 17:11 187/98 05/12/17 16:24 97.9 98 18 187/98 98 Room Air 05/12/17 16:00 90 05/12/17 12:00 97.8 98 20 165/93 96 Room Air 05/12/17 11:49 81 05/12/17 10:22 188/101 05/12/17 10:03 188/101 05/12/17 08:00 96.9 98 20 188/101 95 Room Air 05/12/17 08:00 94 Laboratory Tests 05/13/17 04:30: White Blood Count 6.6, Red Blood Count 3.93L, Hemoglobin 11.3L, Hematocrit 35.8L , Mean Corpuscular Volume 91, Mean Corpuscular Hemoglobin 28.8, Mean Corpuscular Hemoglobin Concent 31.6L, Red Cell Distribution Width 13.9, Platelet Count 252, Mean Platelet Volume 7.3, Neutrophils (%) (Auto) 69.0, Lymphocytes (%) (Auto) 15.7L, Monocytes (%) (Auto) 5.9, Eosinophils (%) (Auto) 8.2H, Basophils (%) (Auto) 1.2, Erythrocyte Sedimentation Rate 58H, Sodium Level 149H, Potassium Level 3.8, Chloride Level 113H, Carbon Dioxide Level 27, Anion Gap 9, Blood Urea Nitrogen 39H, Creatinine 1.5H, Estimat Glomerular Filtration Rate 47.1, Glucose Level 256H, Uric Acid 5.2, Calcium Level 8.3L, Phosphorus Level 2.8, Magnesium Level 2.0, Total Bilirubin 0.2, Gamma Glutamyl Transpeptidase 51, Aspartate Amino Transf (AST/SGOT) 34, Alanine Aminotransferase (ALT/SGPT) 51, Alkaline Phosphatase 90, Total Creatine Kinase 40, Troponin I 0.057H, C-Reactive Protein, Quantitative < 0.4, Pro-B-Type Natriuretic Peptide 1829H, Total Protein 6.4, Albumin 2.8L, Globulin 3.6, Albumin/Globulin Ratio 0.8L, Thyroid Stimulating Hormone (TSH) 3.152 Height (Feet): 6 Height (Inches): 1.00 Weight (Pounds): 190 General Appearance: no apparent distress Neck: normal alignment Cardiovascular: normal rate Respiratory/Chest: decreased breath sounds Abdomen: normal bowel sounds Pelvis: normal external exam Edema: 1+ Arm (L), 1+ Arm (R), 1+ Leg (L), 1+ Leg (R), 1+ Pedal (L), 1+ Pedal ( R), 1+ Generalized Objective Current Medications Medications (Trade) Dose Ordered Sig/Willem Route PRN Reason Start Time Stop Time Status Last Admin Dose Admin Acetaminophen (Tylenol) 650 mg Q4H PRN ORAL T>100.5 F 05/11/17 21:45 06/10/17 21:44 Albuterol/ Ipratropium (Albuterol/ Ipratropium) 3 ml Q4H PRN HHN Shortness of Breath 05/11/17 21:45 05/16/17 21:44 Ampicillin Sodium/ Sulbactam Sodium 3 gm/Sodium Chloride 110 ml @ 220 mls/hr Q6HR IVPB 05/12/17 09:00 05/19/17 08:59 05/13/17 06:25 Aspirin (ASA) 81 mg DAILY GT 05/12/17 10:30 06/11/17 10:29 05/12/17 10:21 Clonidine HCl (Catapres) 0.1 mg Q4H PRN ORAL sbp more than 160 05/11/17 21:45 06/10/17 21:44 05/12/17 23:48 Dextrose (Dextrose 50%) STAT PRN IV Hypoglycemia 05/11/17 21:45 06/10/17 21:44 Dextrose/Sodium Chloride 1,000 ml @ 100 mls/hr Q10H IV 05/12/17 02:00 06/11/17 01:59 05/12/17 21:35 Docusate Sodium (Colace) 100 mg TID GT 05/12/17 13:00 06/11/17 12:59 05/12/17 17:19 Heparin Sodium (Porcine) (Heparin 5000 units/ml) 5,000 units EVERY 12 HOURS SUBQ 05/12/17 09:00 06/11/17 08:59 05/12/17 20:35 Insulin Aspart (NovoLOG) EVERY 6 HOURS SUBQ 05/13/17 00:00 06/11/17 06:29 05/13/17 06:25 Levothyroxine Sodium (Synthroid) 50 mcg ACBREAKFAST ORAL 05/12/17 06:30 06/11/17 06:29 05/13/17 06:25 Lisinopril (Prinivil) 20 mg BID GT 05/12/17 10:30 06/11/17 10:29 05/12/17 17:20 Metoprolol Tartrate (Lopressor) 50 mg Q12HR ORAL 05/12/17 21:00 06/11/17 20:59 05/12/17 20:34 Morphine Sulfate (Morphine Sulfate) 2 mg Q4H PRN IVP Severe Pain (Pain Scale 7-10) 05/11/17 21:45 05/18/17 21:44 Nitroglycerin (Ntg) 0.4 mg Q5M X 3 DOSES PRN SL Prn Chest Pain 05/11/17 21:45 06/10/17 21:44 Ondansetron HCl (Zofran) 4 mg Q6H PRN IVP Nausea & Vomiting 05/11/17 21:45 06/10/17 21:44 Polyethylene Glycol (Miralax) 17 gm HSPRN PRN ORAL Constipation 05/11/17 21:45 06/10/17 21:44 Ranitidine HCl (Zantac) 150 mg TWICE A DAY GT 05/12/17 18:00 06/11/17 17:59 05/12/17 17:45 Temazepam (Restoril) 15 mg HSPRN PRN ORAL Insomnia 05/11/17 21:45 05/18/17 21:44 Item Value Date Time Bedside Blood Glucose 277 mg/dl H 05/13/17 0000 Bedside Blood Glucose 283 mg/dl H 05/13/17 0625 Bedside Blood Glucose 231 mg/dl H 05/12/17 1800 CLARITA DIANA May 13, 2017 06:46
[2017-05-13] MEDS: D5 1/2NS 1,000 ML IV SCH ×2 (08:58→11:16)
[2017-05-13] MEDS: Aspirin Baby 81mg GT SCH (09:16)
[2017-05-13] MEDS: Metoprolol Tartrate 50mg tab ORAL SCH ×2 (09:17→20:33)
[2017-05-13] MEDS: Lisinopril 20mg tab GT SCH ×2 (09:17→18:33)
[2017-05-13] MEDS: Levemir Flexpen SUBQ SCH ×2 (09:18→18:35)
[2017-05-13] MEDS: Docusate 100mg/10ml Liq GT SCH ×3 (09:21→18:29)
[2017-05-13] MEDS: Heparin 5000 units/ml inj SUBQ SCH ×2 (09:22→20:35)
--- NOTE | 2017-05-13 10:51 | Nephrology Progress Note ---
Assessment/Plan Problem List: (1) Dehydration (2) Hypothyroidism (3) Hypertension (4) ATN (acute tubular necrosis) Assessment Renal: Dehydration and Hypernatremia Renal failure- DM Other: (1) Acute encephalopathy (2) Non-ST elevation (NSTEMI) myocardial infarction (3) Lactic acidosis and UTI (4) Acute hyperglycemia (5) Feeding by G-tube (6) Hypertension Plan Plan; Hydrate- Adjust BP meds and Electrolytes Add hydralazine avoid nephrotoxics Per consultants monitor renal parameters Subjective ROS Limited/Unobtainable: No Constitutional: Reports: malaise, weakness Objective Objective Last 24 Hour Vital Signs Date Time Temp Pulse Resp B/P (MAP) Pulse Ox O2 Delivery O2 Flow Rate FiO2 05/13/17 09:17 78 164/84 05/13/17 09:17 164/84 05/13/17 08:00 84 05/13/17 08:00 98.2 78 18 164/84 99 Room Air 05/13/17 05:33 97 Room Air 21 05/13/17 04:00 97.7 89 19 161/94 99 Room Air 05/13/17 04:00 73 18 Room Air 21 05/13/17 04:00 87 05/13/17 02:00 97.9 82 20 160/98 99 Room Air 05/13/17 00:00 97.9 80 19 183/90 97 Room Air 05/13/17 00:00 84 05/12/17 23:48 183/90 05/12/17 20:34 88 167/108 05/12/17 20:00 82 05/12/17 20:00 97.7 88 18 167/108 97 Room Air 05/12/17 17:20 183/95 05/12/17 17:19 183/95 05/12/17 17:11 187/98 05/12/17 16:24 97.9 98 18 187/98 98 Room Air 05/12/17 16:00 90 05/12/17 12:00 97.8 98 20 165/93 96 Room Air 05/12/17 11:49 81 Intake and Output 05/13/17 05/14/17 19:00 07:00 # Bowel Movements 1 Laboratory Tests 05/13/17 04:30: White Blood Count 6.6, Red Blood Count 3.93L, Hemoglobin 11.3L, Hematocrit 35.8L , Mean Corpuscular Volume 91, Mean Corpuscular Hemoglobin 28.8, Mean Corpuscular Hemoglobin Concent 31.6L, Red Cell Distribution Width 13.9, Platelet Count 252, Mean Platelet Volume 7.3, Neutrophils (%) (Auto) 69.0, Lymphocytes (%) (Auto) 15.7L, Monocytes (%) (Auto) 5.9, Eosinophils (%) (Auto) 8.2H, Basophils (%) (Auto) 1.2, Erythrocyte Sedimentation Rate 58H, Sodium Level 149H, Potassium Level 3.8, Chloride Level 113H, Carbon Dioxide Level 27, Anion Gap 9, Blood Urea Nitrogen 39H, Creatinine 1.5H, Estimat Glomerular Filtration Rate 47.1, Glucose Level 256H, Uric Acid 5.2, Calcium Level 8.3L, Phosphorus Level 2.8, Magnesium Level 2.0, Total Bilirubin 0.2, Gamma Glutamyl Transpeptidase 51, Aspartate Amino Transf (AST/SGOT) 34, Alanine Aminotransferase (ALT/SGPT) 51, Alkaline Phosphatase 90, Total Creatine Kinase 40, Troponin I 0.057H, C-Reactive Protein, Quantitative < 0.4, Pro-B-Type Natriuretic Peptide 1829H, Total Protein 6.4, Albumin 2.8L, Globulin 3.6, Albumin/Globulin Ratio 0.8L, Thyroid Stimulating Hormone (TSH) 3.152 Height (Feet): 6 Height (Inches): 1.00 Weight (Pounds): 190 General Appearance: no apparent distress Neck: limited range of motion Cardiovascular: normal rate Respiratory/Chest: decreased breath sounds Abdomen: soft, distended, other - PEG GARCÍA READ May 13, 2017 10:51
--- NOTE | 2017-05-13 11:24 | Pulmonology Progress Note ---
Assessment/Plan Problems: (1) Acute encephalopathy (2) Non-ST elevation (NSTEMI) myocardial infarction (3) ATN (acute tubular necrosis) (4) Acute hyperglycemia (5) Feeding by G-tube (6) Hypertension Assessment/Plan renal function improving Mental status improving troponin questionably increased Cardio consult appreciated Subjective ROS Limited/Unobtainable: No Constitutional: Reports: no symptoms HEENT: Repors: no symptoms Respiratory: Reports: no symptoms Allergies: Coded Allergies: No Known Allergies (Unverified , 05/11/17) Objective Last 24 Hour Vital Signs Date Time Temp Pulse Resp B/P (MAP) Pulse Ox O2 Delivery O2 Flow Rate FiO2 05/13/17 09:17 78 164/84 05/13/17 09:17 164/84 05/13/17 08:00 84 05/13/17 08:00 98.2 78 18 164/84 99 Room Air 05/13/17 05:33 97 Room Air 21 05/13/17 04:00 97.7 89 19 161/94 99 Room Air 05/13/17 04:00 73 18 Room Air 21 05/13/17 04:00 87 05/13/17 02:00 97.9 82 20 160/98 99 Room Air 05/13/17 00:00 97.9 80 19 183/90 97 Room Air 05/13/17 00:00 84 05/12/17 23:48 183/90 05/12/17 20:34 88 167/108 05/12/17 20:00 82 05/12/17 20:00 97.7 88 18 167/108 97 Room Air 05/12/17 17:20 183/95 05/12/17 17:19 183/95 05/12/17 17:11 187/98 05/12/17 16:24 97.9 98 18 187/98 98 Room Air 05/12/17 16:00 90 05/12/17 12:00 97.8 98 20 165/93 96 Room Air 05/12/17 11:49 81 Intake and Output 05/13/17 05/14/17 19:00 07:00 Intake Total 280 ml Balance 280 ml Tube Feeding 280 ml # Bowel Movements 1 General Appearance: WD/WN HEENT: normocephalic, atraumatic Respiratory/Chest: chest wall non-tender, lungs clear, normal breath sounds Cardiovascular: normal peripheral pulses, regular rhythm Abdomen: normal bowel sounds, no organomegaly Genitourinary: normal external genitalia Extremities: no cyanosis Skin: no rash Microbiology Date/Time Source Procedure Growth Status 05/11/17 19:45 Blood Blood Culture - Preliminary NO GROWTH AFTER 24 HOURS Resulted 05/11/17 19:30 Blood Blood Culture - Preliminary NO GROWTH AFTER 24 HOURS Resulted Laboratory Tests 05/13/17 04:30: White Blood Count 6.6, Red Blood Count 3.93L, Hemoglobin 11.3L, Hematocrit 35.8L , Mean Corpuscular Volume 91, Mean Corpuscular Hemoglobin 28.8, Mean Corpuscular Hemoglobin Concent 31.6L, Red Cell Distribution Width 13.9, Platelet Count 252, Mean Platelet Volume 7.3, Neutrophils (%) (Auto) 69.0, Lymphocytes (%) (Auto) 15.7L, Monocytes (%) (Auto) 5.9, Eosinophils (%) (Auto) 8.2H, Basophils (%) (Auto) 1.2, Erythrocyte Sedimentation Rate 58H, Sodium Level 149H, Potassium Level 3.8, Chloride Level 113H, Carbon Dioxide Level 27, Anion Gap 9, Blood Urea Nitrogen 39H, Creatinine 1.5H, Estimat Glomerular Filtration Rate 47.1, Glucose Level 256H, Uric Acid 5.2, Calcium Level 8.3L, Phosphorus Level 2.8, Magnesium Level 2.0, Total Bilirubin 0.2, Gamma Glutamyl Transpeptidase 51, Aspartate Amino Transf (AST/SGOT) 34, Alanine Aminotransferase (ALT/SGPT) 51, Alkaline Phosphatase 90, Total Creatine Kinase 40, Troponin I 0.057H, C-Reactive Protein, Quantitative < 0.4, Pro-B-Type Natriuretic Peptide 1829H, Total Protein 6.4, Albumin 2.8L, Globulin 3.6, Albumin/Globulin Ratio 0.8L, Thyroid Stimulating Hormone (TSH) 3.152 Current Medications Medications (Trade) Dose Ordered Sig/Willem Route PRN Reason Start Time Stop Time Status Last Admin Dose Admin Acetaminophen (Tylenol) 650 mg Q4H PRN ORAL T>100.5 F 05/11/17 21:45 06/10/17 21:44 Albuterol/ Ipratropium (Albuterol/ Ipratropium) 3 ml Q4H PRN HHN Shortness of Breath 05/11/17 21:45 05/16/17 21:44 Ampicillin Sodium/ Sulbactam Sodium 3 gm/Sodium Chloride 110 ml @ 220 mls/hr Q6HR IVPB 05/12/17 09:00 05/19/17 08:59 05/13/17 06:25 Aspirin (ASA) 81 mg DAILY GT 05/12/17 10:30 06/11/17 10:29 05/13/17 09:16 Clonidine HCl (Catapres) 0.1 mg Q4H PRN ORAL sbp more than 160 05/11/17 21:45 06/10/17 21:44 05/12/17 23:48 Dextrose (Dextrose 50%) STAT PRN IV Hypoglycemia 05/11/17 21:45 06/10/17 21:44 Dextrose (Dextrose 50%) STAT PRN IV Hypoglycemia 05/13/17 06:45 06/12/17 06:44 Dextrose/Sodium Chloride 1,000 ml @ 75 mls/hr [id number] IV 05/13/17 11:00 06/12/17 10:59 05/13/17 11:16 Docusate Sodium (Colace) 100 mg TID GT 05/12/17 13:00 06/11/17 12:59 05/13/17 09:21 Heparin Sodium (Porcine) (Heparin 5000 units/ml) 5,000 units EVERY 12 HOURS SUBQ 05/12/17 09:00 06/11/17 08:59 05/13/17 09:22 Hydralazine HCl (Apresoline) 25 mg Q8HR ORAL 05/13/17 14:00 06/12/17 13:59 Insulin Aspart (NovoLOG) EVERY 6 HOURS SUBQ 05/13/17 00:00 06/11/17 06:29 05/13/17 06:25 Insulin Detemir (Levemir) 10 units BID SUBQ 05/13/17 09:00 06/12/17 08:59 05/13/17 09:18 Levothyroxine Sodium (Synthroid) 50 mcg ACBREAKFAST ORAL 05/12/17 06:30 06/11/17 06:29 05/13/17 06:25 Lisinopril (Prinivil) 20 mg BID GT 05/12/17 10:30 06/11/17 10:29 05/13/17 09:17 Metoprolol Tartrate (Lopressor) 50 mg Q12HR ORAL 05/12/17 21:00 06/11/17 20:59 05/13/17 09:17 Morphine Sulfate (Morphine Sulfate) 2 mg Q4H PRN IVP Severe Pain (Pain Scale 7-10) 05/11/17 21:45 05/18/17 21:44 Nitroglycerin (Ntg) 0.4 mg Q5M X 3 DOSES PRN SL Prn Chest Pain 05/11/17 21:45 06/10/17 21:44 Ondansetron HCl (Zofran) 4 mg Q6H PRN IVP Nausea & Vomiting 05/11/17 21:45 06/10/17 21:44 Polyethylene Glycol (Miralax) 17 gm HSPRN PRN ORAL Constipation 05/11/17 21:45 06/10/17 21:44 Ranitidine HCl (Zantac) 150 mg TWICE A DAY GT 05/12/17 18:00 06/11/17 17:59 05/13/17 09:16 Temazepam (Restoril) 15 mg HSPRN PRN ORAL Insomnia 05/11/17 21:45 05/18/17 21:44 JESSE ZAVALA May 13, 2017 11:24
--- NOTE | 2017-05-13 14:11 | Cardiology Progress Note ---
Assessment/Plan Assessment/Plan 1. Abnormal electrocardiogram, chronicity of which is unknown. 2. Abnormal cardiac enzymes of questionable significance in light of renal insufficiency. 3. Renal insufficiency. 4. History of hyperlipidemia. 5. Diabetes mellitus. 6. History of hypertension. 7. History of bipolar disorder trops persistently min abn prelim echo normal lv function to review renal function improved mildly na improved with hydration bp is elevated will add norvasc Subjective Cardiovascular: Denies: chest pain, lightheadedness Respiratory: Denies: shortness of breath Objective Last 24 Hour Vital Signs Date Time Temp Pulse Resp B/P (MAP) Pulse Ox O2 Delivery O2 Flow Rate FiO2 05/13/17 12:00 72 05/13/17 12:00 98.2 76 20 194/94 99 Room Air 05/13/17 09:17 78 164/84 05/13/17 09:17 164/84 05/13/17 08:00 84 05/13/17 08:00 98.2 78 18 164/84 99 Room Air 05/13/17 05:33 97 Room Air 21 05/13/17 04:00 97.7 89 19 161/94 99 Room Air 05/13/17 04:00 73 18 Room Air 21 05/13/17 04:00 87 05/13/17 02:00 97.9 82 20 160/98 99 Room Air 05/13/17 00:00 97.9 80 19 183/90 97 Room Air 05/13/17 00:00 84 05/12/17 23:48 183/90 05/12/17 20:34 88 167/108 05/12/17 20:00 82 05/12/17 20:00 97.7 88 18 167/108 97 Room Air 05/12/17 17:20 183/95 05/12/17 17:19 183/95 05/12/17 17:11 187/98 05/12/17 16:24 97.9 98 18 187/98 98 Room Air 05/12/17 16:00 90 General Appearance: alert Neck: no JVD Cardiovascular: normal rate, regular rhythm Respiratory/Chest: lungs clear, normal breath sounds Abdomen: normal bowel sounds, non tender, soft Extremities: no swelling Intake and Output 05/13/17 05/14/17 19:00 07:00 Intake Total 586.25 ml Balance 586.25 ml IV Total 166.25 ml Tube Feeding 420 ml # Bowel Movements 2 Laboratory Tests Test 05/13/17 04:30 White Blood Count 6.6 K/UL (4.8-10.8) Red Blood Count 3.93 M/UL (4.70-6.10) L Hemoglobin 11.3 G/DL (14.2-18.0) L Hematocrit 35.8 % (42.0-52.0) L Mean Corpuscular Volume 91 FL (80-99) Mean Corpuscular Hemoglobin 28.8 PG (27.0-31.0) Mean Corpuscular Hemoglobin Concent 31.6 G/DL (32.0-36.0) L Red Cell Distribution Width 13.9 % (11.6-14.8) Platelet Count 252 K/UL (150-450) Mean Platelet Volume 7.3 FL (6.5-10.1) Neutrophils (%) (Auto) 69.0 % (45.0-75.0) Lymphocytes (%) (Auto) 15.7 % (20.0-45.0) L Monocytes (%) (Auto) 5.9 % (1.0-10.0) Eosinophils (%) (Auto) 8.2 % (0.0-3.0) H Basophils (%) (Auto) 1.2 % (0.0-2.0) Erythrocyte Sedimentation Rate 58 MM/HR (0-20) H Sodium Level 149 MMOL/L (136-145) H Potassium Level 3.8 MMOL/L (3.5-5.1) Chloride Level 113 MMOL/L (98-107) H Carbon Dioxide Level 27 MMOL/L (21-32) Anion Gap 9 mmol/L (5-15) Blood Urea Nitrogen 39 mg/dL (7-18) H Creatinine 1.5 MG/DL (0.55-1.30) H Estimat Glomerular Filtration Rate 47.1 mL/min (>60) Glucose Level 256 MG/DL (74-106) H Uric Acid 5.2 MG/DL (2.6-7.2) Calcium Level 8.3 MG/DL (8.5-10.1) L Phosphorus Level 2.8 MG/DL (2.5-4.9) Magnesium Level 2.0 MG/DL (1.8-2.4) Total Bilirubin 0.2 MG/DL (0.2-1.0) Gamma Glutamyl Transpeptidase 51 U/L (5-85) Aspartate Amino Transf (AST/SGOT) 34 U/L (15-37) Alanine Aminotransferase (ALT/SGPT) 51 U/L (12-78) Alkaline Phosphatase 90 U/L (46-116) Total Creatine Kinase 40 U/L (26-308) Troponin I 0.057 ng/mL (0.000-0.056) C-Reactive Protein, Quantitative < 0.4 mg/dL (0.00-0.90) Pro-B-Type Natriuretic Peptide 1829 pg/mL (0-125) H Total Protein 6.4 G/DL (6.4-8.2) Albumin 2.8 G/DL (3.4-5.0) L Globulin 3.6 g/dL Albumin/Globulin Ratio 0.8 (1.0-2.7) L Thyroid Stimulating Hormone (TSH) 3.152 uiU/mL (0.358-3.740) Microbiology Date/Time Source Procedure Growth Status 05/11/17 19:45 Blood Blood Culture - Preliminary NO GROWTH AFTER 24 HOURS Resulted 05/11/17 19:30 Blood Blood Culture - Preliminary NO GROWTH AFTER 24 HOURS Resulted FAB CAMPBELL May 13, 2017 14:11
[2017-05-13] MEDS: HydrALAZINE 25mg tab ORAL SCH ×2 (14:21→21:36)
--- NOTE | 2017-05-13 15:22 | Cardiology Report ---
APPROVED REPORT EXAM: Two-dimensional and M-mode echocardiogram with Doppler and color Doppler. INDICATION Acute myocardial infarction Technically difficult study due to poor parasternal acoustical windows. M-mode measurements of left ventricle not obtainable due to cardiac position (angle). Study quality precludes accurate assessment of regional wall motion. Mild left ventricular enlargement by 2D. Normal left ventricular systolic function and wall motion to extent visualized. Left ventricular ejection fraction estimated to be 65-70 %. No evidence of left ventricular hypertrophy. Small pericardial effusion. Left atrial enlargement chamber sizes is within normal limits. Right cardiac chamber sizes are within normal limits. Mild focal aortic valve sclerosis with adequate cusp excursion. Mildly thickened mitral valve leaflets with normal excursion. Mild mitral annulus and aortic root calcification. Pulmonic valve not visualized. Normal tricuspid valve structure. Subcostal views not obtained due to G Tube. A color flow and spectral Doppler study was performed and revealed: Trace aortic regurgitation. Trace mitral regurgitation. Mitral diastolic velocities suggest reduced left ventricular relaxation c/w mild LV diastolic dysfunction (Grade I ). Trace tricuspid regurgitation. Tricuspid systolic velocities suggests peak right ventricular systolic pressure of 12 mmHg.
--- NOTE | 2017-05-13 15:33 | Cardiology Report ---
APPROVED REPORT EKG Measurement Heart [id number] Normal sinus rhythm Inferior infarct, age undetermined Abnormal ECG
[2017-05-13] MEDS ORDERED: NS 500ML ONE (15:58)
[2017-05-13] MEDS ORDERED: D5 1/2NS 1000ml IV ONE (15:58)
[2017-05-13] MEDS ORDERED: Tubing IV Secondary IV ONE (15:58)
--- NOTE | 2017-05-13 21:30 | Progress Note ---
DATE: 05/12/2017 SUBJECTIVE: The patient is awake with eye contact. OBJECTIVE: HEENT: Eyes were normal. ENT, mucous membranes were moist and intact. NECK: Supple with no JVD without lymph nodes. LUNGS: Clear. HEART: Normal sounds with regular beats. ABDOMEN: Soft and nontender with normal bowel sounds. EXTREMITIES: Warm without cyanosis, clubbing, or edema. LABORATORY DATA: Hemoglobin is 12.0, hematocrit 36.0 with MCV of 92, WBC of 8.6, and platelets 260,000. His BUN and creatinine are 87 and 1.8 respectively. His sodium is 153, potassium 3.9, chloride 116, and CO2 is 27. His glucose is 239. His A1c is 7. SGOT, SGPT, and alkaline phosphatase are normal. His troponin is 0.039. It was 0.073 yesterday. . IMPRESSION AND PLAN: cardiovascular disease. The patient will be seen today by safety associate and chief lock tender operator, both of them did not formulate yet their opinion. Repeat laboratory tests will be done in the morning. Martina Morales M.D. DR: Serafin JOB#: [id number] CC:
[2017-05-14] VITALS: BP 180/94
[2017-05-14] MEDS: D5 1/2NS 1,000 ML IV SCH (00:26)
[2017-05-14] MEDS: Ampicillin/Sulbactam Sod 3 GM in NS 110 ML IVPB SCH ×4 (00:26→18:03)
[2017-05-14] MEDS: NovoLOG Insulin Flexpen SUBQ SCH ×4 (00:28→18:04)
[2017-05-14 04:00] VITALS: BP 158/92
[2017-05-14 05:02] LABS: BASOPHILS % (AUTO) 0.8 % (0.0-2.0); EOSINOPHILS % (AUTO) 7.3 % (0.0-3.0); LYMPHOCYTES % (AUTO) 16.8 % (20.0-45.0); MEAN CORPUSCULAR HGB CONC 32.8 G/DL (32.0-36.0); MEAN CORPUSCULAR VOLUME 91 FL (80-99); MEAN PLATELET VOLUME 7.6 FL (6.5-10.1); MONOCYTES % (AUTO) 6.7 % (1.0-10.0); NEUTROPHILS % (AUTO) 68.4 % (45.0-75.0); PLATELET COUNT 247 K/UL (150-450); RED BLOOD COUNT 3.82 M/UL (4.70-6.10); RED CELL DISTRIBUTION WIDTH 13.6 % (11.6-14.8); WHITE BLOOD COUNT 6.7 K/UL (4.8-10.8)
[2017-05-14 05:33] LABS: ALANINE AMINOTRANSFERASE 50 U/L (12-78); ALBUMIN/GLOBULIN RATIO 0.8 (1.0-2.7); ANION GAP 6 mmol/L (5-15); ASPARTATE AMINO TRANSFERASE 23 U/L (15-37); CARBON DIOXIDE 28 MMOL/L (21-32); CHLORIDE 112 MMOL/L (98-107); CREATININE 1.5 MG/DL (0.55-1.30); GLOMERULAR FILTRATION RATE 47.1 mL/min (>60); POTASSIUM 3.6 MMOL/L (3.5-5.1); SODIUM 146 MMOL/L (136-145); TOTAL PROTEIN 5.9 G/DL (6.4-8.2)
[2017-05-14] MEDS: HydrALAZINE 25mg tab ORAL SCH (06:32)
--- NOTE | 2017-05-14 07:03 | General Progress Note ---
Assessment/Plan Problem List: (1) Uncontrolled diabetes mellitus ICD Codes: E11.65 - Type 2 diabetes mellitus with hyperglycemia SNOMED: 41982513, 549099459 (2) Altered mental status ICD Codes: R41.82 - Altered mental status, unspecified SNOMED: 924184867 (3) Feeding by G-tube ICD Codes: Z93.1 - Gastrostomy status SNOMED: 073101297, 771970006 (4) History of CVA (cerebrovascular accident) ICD Codes: Z86.73 - Personal history of transient ischemic attack (TIA), and cerebral infarction without residual deficits SNOMED: 265246377 (5) Lactic acidosis ICD Codes: E87.2 - Acidosis SNOMED: 18850828 (6) Dehydration ICD Codes: E86.0 - Dehydration SNOMED: 86175707 (7) ATN (acute tubular necrosis) ICD Codes: N17.0 - Acute kidney failure with tubular necrosis SNOMED: 95378876 (8) Hypothyroidism ICD Codes: E03.9 - Hypothyroidism, unspecified SNOMED: 79507569 Assessment/Plan continue to hold Metformin - due to BOOGIE and lactic acidosis increase Levemir to 18 units bid continue Novolog sliding scale every 6 hours continue Levothyroxine 50 mcg daily Subjective ROS Limited/Unobtainable: Yes Allergies: Coded Allergies: No Known Allergies (Unverified , 05/11/17) Subjective events noted Objective Last 24 Hour Vital Signs Date Time Temp Pulse Resp B/P (MAP) Pulse Ox O2 Delivery O2 Flow Rate FiO2 05/14/17 06:32 158/92 05/14/17 04:00 77 05/14/17 04:00 98.0 87 18 158/92 98 Room Air 05/14/17 00:57 198/94 05/14/17 00:00 74 05/14/17 00:00 98.2 89 18 180/94 100 Room Air 05/13/17 21:36 168/100 05/13/17 20:33 81 168/100 05/13/17 20:00 87 05/13/17 20:00 98.6 92 20 168/100 100 Room Air 05/13/17 20:00 98 Room Air 21 05/13/17 18:33 183/98 05/13/17 16:00 81 05/13/17 16:00 98.2 76 20 155/77 100 Room Air 05/13/17 15:24 198/94 05/13/17 14:21 190/94 05/13/17 12:00 72 05/13/17 12:00 98.2 76 20 194/94 99 Room Air 05/13/17 09:17 78 164/84 05/13/17 09:17 164/84 05/13/17 08:00 84 05/13/17 08:00 98.2 78 18 164/84 99 Room Air Laboratory Tests 05/14/17 04:05: White Blood Count 6.7, Red Blood Count 3.82L, Hemoglobin 11.4L, Hematocrit 34.9L , Mean Corpuscular Volume 91, Mean Corpuscular Hemoglobin 30.0, Mean Corpuscular Hemoglobin Concent 32.8, Red Cell Distribution Width 13.6, Platelet Count 247, Mean Platelet Volume 7.6, Neutrophils (%) (Auto) 68.4, Lymphocytes (% ) (Auto) 16.8L, Monocytes (%) (Auto) 6.7, Eosinophils (%) (Auto) 7.3H, Basophils (%) (Auto) 0.8, Sodium Level 146H, Potassium Level 3.6, Chloride Level 112H, Carbon Dioxide Level 28, Anion Gap 6, Blood Urea Nitrogen 35H, Creatinine 1.5H, Estimat Glomerular Filtration Rate 47.1, Glucose Level 271H, Calcium Level 8.0L, Total Bilirubin 0.2, Aspartate Amino Transf (AST/SGOT) 23, Alanine Aminotransferase (ALT/SGPT) 50, Alkaline Phosphatase 96, Pro-B-Type Natriuretic Peptide 3130H, Total Protein 5.9L, Albumin 2.6L, Globulin 3.3, Albumin/Globulin Ratio 0.8L Height (Feet): 6 Height (Inches): 1.00 Weight (Pounds): 190 General Appearance: no apparent distress Neck: normal alignment Cardiovascular: normal rate Respiratory/Chest: decreased breath sounds Abdomen: normal bowel sounds Pelvis: normal external exam Objective Current Medications Medications (Trade) Dose Ordered Sig/Willem Route PRN Reason Start Time Stop Time Status Last Admin Dose Admin Acetaminophen (Tylenol) 650 mg Q4H PRN ORAL T>100.5 F 05/11/17 21:45 06/10/17 21:44 Albuterol/ Ipratropium (Albuterol/ Ipratropium) 3 ml Q4H PRN HHN Shortness of Breath 05/11/17 21:45 05/16/17 21:44 Ampicillin Sodium/ Sulbactam Sodium 3 gm/Sodium Chloride 110 ml @ 220 mls/hr Q6HR IVPB 05/12/17 09:00 05/19/17 08:59 05/14/17 06:31 Aspirin (ASA) 81 mg DAILY GT 05/12/17 10:30 06/11/17 10:29 05/13/17 09:16 Clonidine HCl (Catapres) 0.1 mg Q4H PRN ORAL sbp more than 160 05/11/17 21:45 06/10/17 21:44 05/14/17 00:57 Dextrose (Dextrose 50%) STAT PRN IV Hypoglycemia 05/11/17 21:45 06/10/17 21:44 Dextrose (Dextrose 50%) STAT PRN IV Hypoglycemia 05/13/17 06:45 06/12/17 06:44 Dextrose/Sodium Chloride 1,000 ml @ 75 mls/hr [id number] IV 05/13/17 11:00 06/12/17 10:59 05/14/17 00:26 Docusate Sodium (Colace) 100 mg TID GT 05/12/17 13:00 06/11/17 12:59 05/13/17 18:29 Heparin Sodium (Porcine) (Heparin 5000 units/ml) 5,000 units EVERY 12 HOURS SUBQ 05/12/17 09:00 06/11/17 08:59 05/13/17 20:35 Hydralazine HCl (Apresoline) 25 mg Q8HR ORAL 05/13/17 14:00 06/12/17 13:59 05/14/17 06:32 Insulin Aspart (NovoLOG) EVERY 6 HOURS SUBQ 05/13/17 00:00 06/11/17 06:29 05/14/17 06:38 Insulin Detemir (Levemir) 10 units BID SUBQ 05/13/17 09:00 06/12/17 08:59 05/13/17 18:35 Levothyroxine Sodium (Synthroid) 50 mcg ACBREAKFAST ORAL 05/12/17 06:30 06/11/17 06:29 05/14/17 06:32 Lisinopril (Prinivil) 20 mg BID GT 05/12/17 10:30 06/11/17 10:29 05/13/17 18:33 Metoprolol Tartrate (Lopressor) 100 mg Q12HR GT 05/14/17 09:00 06/13/17 08:59 Morphine Sulfate (Morphine Sulfate) 2 mg Q4H PRN IVP Severe Pain (Pain Scale 7-10) 05/11/17 21:45 05/18/17 21:44 Nitroglycerin (Ntg) 0.4 mg Q5M X 3 DOSES PRN SL Prn Chest Pain 05/11/17 21:45 06/10/17 21:44 Ondansetron HCl (Zofran) 4 mg Q6H PRN IVP Nausea & Vomiting 05/11/17 21:45 06/10/17 21:44 Polyethylene Glycol (Miralax) 17 gm HSPRN PRN ORAL Constipation 05/11/17 21:45 06/10/17 21:44 Ranitidine HCl (Zantac) 150 mg TWICE A DAY GT 05/12/17 18:00 06/11/17 17:59 05/13/17 18:34 Temazepam (Restoril) 15 mg HSPRN PRN ORAL Insomnia 05/11/17 21:45 05/18/17 21:44 Item Value Date Time Bedside Blood Glucose 279 mg/dl H 05/14/17 0638 Bedside Blood Glucose 267 mg/dl H 05/14/17 0028 Bedside Blood Glucose 269 mg/dl H 05/13/17 1836 Bedside Blood Glucose 258 mg/dl H 05/13/17 1200 Bedside Blood Glucose 232 mg/dl H 05/13/17 0918 Bedside Blood Glucose 283 mg/dl H 05/13/17 0625 Bedside Blood Glucose 277 mg/dl H 05/13/17 0000 CLARITA DIANA May 14, 2017 07:02
--- NOTE | 2017-05-14 07:45 | History and Physical Report ---
DATE OF ADMISSION: 05/11/2017 REASON FOR ADMISSION: This is one of the several admissions to [facility] of this 62-year-old patient because of altered mental status. HISTORY OF PRESENT ILLNESS: The patient is a resident of an extended care facility where he has been in stable condition over the last several months. He is known to have a long list of chronic medical syndrome, but has been stable on his current medication. On the day of admission, he was found poorly responsive verbally. Later on, he was poorly responsive to verbal command. He was transferred by service manager to [facility] ER. Workup at the ER did find some abnormality, but none that can explain the patient's altered mental status and the patient was admitted. PAST MEDICAL HISTORY AND SURGERY: The patient underwent several years ago following which he developed respiratory failure. He had to be intubated and placed on mechanical ventilation. He was unable to be weaned and underwent tracheostomy and gastrostomy. He was later successfully weaned from the mechanical ventilation, but he was unable to be weaned from the gastrostomy tube and for which intermittently he was completely dependent on the gastrostomy tube. However, he was able to maintain some oral feeding. In the last several months, he has been on gastrostomy feeding. In addition, the patient is known to have hypothyroidism, type 2 diabetes mellitus, hyperlipidemia, hypovitaminosis D, chronic psychosis, high blood pressure, and chronic renal failure. ALLERGIES: No known drug allergies. MEDICATIONS: The patient is on metoprolol 100 mg daily. He is on heparin 5000 units subcutaneously q.12 hours. He is on levothyroxine 50 mcg daily. He is on insulin aspart sliding scale of moderate intensity. He is on albuterol sulfate and ipratropium bromide inhalation therapy every six hours p.r.n. He has multiple medications for motility disorder. He is on temazepam 50 mg at bedtime and he is currently on ketorolac tromethamine 30 mg IV q.6.h. p.r.n. for pain, 20 mg q.4 h., and 2.5 mg q.4 h., 300 mg daily, , ampicillin sodium and sulbactam sodium IV piggyback q.6 h. He was on sodium chloride 1000 mg that he received in ER. FAMILY HISTORY: Both parents from cardiovascular disease. He has one sister in good health. He has no children. SOCIAL HISTORY: He is single. He was born in [place]. He has been on SSI for many years prior to the present total disability. He was never employed. HABITS: The patient did not smoke, drink, or use illicit drugs. REVIEW OF SYSTEMS: The patient not able to give any information regarding his state of health. PHYSICAL EXAMINATION: VITAL SIGNS: Blood pressure is 162/74, his pulse is 80, respirations 16, and temperature 97.6. HEENT: Eyes were normal. Pupils were round, equal, and reacting to light. Sclerae was white. Conjunctiva was pink. Extraocular movements could not be assessed. Temporal arteries were palpable bilaterally. There was no bilateral temporal wasting. Visual bang to confrontation. Neglect sign could not be assessed. ENT, mucous membranes were not dehydrated. Auditory canals were clear and tympanic membranes could not be visualized. Nasal cavity was not congested. Nasal septum was intact. Soft palate, pharynx, and uvula could not be visualized. Tongue was dry and midline and normally papillated. NECK: Supple. There was no goiter. No mass. No lymphadenopathy. There was no JVD. No bruits. Carotid upstroke was 2+. Tracheostomy scar was well-healed. LUNGS: Clear. No rhonchi, rales, or wheezing. HEART: PMI was in fifth left intercostal space in midclavicular line. There was normal S1 and normal S2. There was no murmur. No arrhythmia. No S3. No S4. No pericardial rub. ABDOMEN: Soft, nontender without organomegaly. There were no masses palpable. Normal bowel sounds without bruit. There was no guarding. No rebound tenderness. No ascites. No hernia. No CVA tenderness. Liver span was 8 cm, mostly nontender. Gastrostomy site was clean. EXTREMITIES: Warm without cyanosis, clubbing, or edema. NEUROLOGICAL: Reflexes in biceps, triceps, and brachioradialis were difficult to obtain. Patellar retinaculum symmetric. Plantars were in extension on the right and flexion on the left. Cranial nerves from II through XII were symmetric and equal. Cerebellar function, there was no tremor. No nystagmus. No extrapyramidal rigidity. Sensory exam to pinprick, cotton touch, position, and motor strength could not be assessed because of the patient's coma. LABORATORY DATA: His hemoglobin is 12.0, hematocrit 40.2 with MCV of 93, WBC 9.9, and platelets 287,000. His BUN and creatinine is 69 and 2.0 respectively. Sodium is 153, potassium 4.5, chloride 115, CO2 is 30. Glucose is 183. His lactic acid is 2.6. His uric acid is 6. His troponin was 0.073. His calcium is 9.2. His phosphorus is 3.7, magnesium is 2.3. SGOT, SGPT, and alkaline phosphatase are all normal. His albumin is 3.2 with globulin of 3.7. CT scan of the brain did not show any acute changes as well as chest x-ray in the emergency room. IMPRESSION: The patient altered mental status. Currently he is hypernatremic. He has chronic renal failure with positive troponin. EKG, BNP, and 2D echo will be requested. Urine for toxicology screen will be requested as well. Repeat laboratory tests will be done in the a.m. Martina Morales M.D. DR: ELVIA JOB#: [id number] CC:
[2017-05-14 08:00] VITALS: BP 189/108
[2017-05-14] MEDS: Docusate 100mg/10ml Liq GT SCH ×3 (09:24→18:02)
[2017-05-14] MEDS: Levemir Flexpen SUBQ SCH ×2 (09:25→18:04)
[2017-05-14] MEDS: Heparin 5000 units/ml inj SUBQ SCH ×2 (09:26→20:54)
[2017-05-14] MEDS: Lisinopril 20mg tab GT SCH ×2 (09:26→18:02)
[2017-05-14] MEDS: Metoprolol Tartrate 50mg tab GT SCH ×2 (09:27→20:53)
[2017-05-14] MEDS: Aspirin Baby 81mg GT SCH (09:27)
--- NOTE | 2017-05-14 10:45 | Nephrology Progress Note ---
Assessment/Plan Problem List: (1) Dehydration (2) Hypothyroidism (3) Hypertension (4) ATN (acute tubular necrosis) Assessment Renal: Dehydration and Hypernatremia Renal failure- DM Other: (1) Acute encephalopathy (2) Non-ST elevation (NSTEMI) myocardial infarction (3) Lactic acidosis and UTI (4) Acute hyperglycemia (5) Feeding by G-tube (6) Hypertension Plan Plan; DC Hydrate- Adjust BP meds and Electrolytes- add Norvasc- up the dose of Hydralazine avoid nephrotoxics Per consultants monitor renal parameters Subjective ROS Limited/Unobtainable: No Constitutional: Reports: malaise Objective Objective Last 24 Hour Vital Signs Date Time Temp Pulse Resp B/P (MAP) Pulse Ox O2 Delivery O2 Flow Rate FiO2 05/14/17 09:33 189/105 05/14/17 09:27 88 189/105 05/14/17 09:26 189/105 05/14/17 08:00 88 05/14/17 08:00 97.5 88 19 189/108 99 Room Air 05/14/17 07:37 76 18 Room Air 05/14/17 06:32 158/92 05/14/17 04:00 77 05/14/17 04:00 98.0 87 18 158/92 98 Room Air 05/14/17 00:57 198/94 05/14/17 00:00 74 05/14/17 00:00 98.2 89 18 180/94 100 Room Air 05/13/17 21:36 168/100 05/13/17 20:33 81 168/100 05/13/17 20:00 87 05/13/17 20:00 98.6 92 20 168/100 100 Room Air 05/13/17 20:00 98 Room Air 21 05/13/17 18:33 183/98 05/13/17 16:00 81 05/13/17 16:00 98.2 76 20 155/77 100 Room Air 05/13/17 15:24 198/94 05/13/17 14:21 190/94 05/13/17 12:00 72 05/13/17 12:00 98.2 76 20 194/94 99 Room Air Laboratory Tests 05/14/17 04:05: White Blood Count 6.7, Red Blood Count 3.82L, Hemoglobin 11.4L, Hematocrit 34.9L , Mean Corpuscular Volume 91, Mean Corpuscular Hemoglobin 30.0, Mean Corpuscular Hemoglobin Concent 32.8, Red Cell Distribution Width 13.6, Platelet Count 247, Mean Platelet Volume 7.6, Neutrophils (%) (Auto) 68.4, Lymphocytes (% ) (Auto) 16.8L, Monocytes (%) (Auto) 6.7, Eosinophils (%) (Auto) 7.3H, Basophils (%) (Auto) 0.8, Sodium Level 146H, Potassium Level 3.6, Chloride Level 112H, Carbon Dioxide Level 28, Anion Gap 6, Blood Urea Nitrogen 35H, Creatinine 1.5H, Estimat Glomerular Filtration Rate 47.1, Glucose Level 271H, Calcium Level 8.0L, Total Bilirubin 0.2, Aspartate Amino Transf (AST/SGOT) 23, Alanine Aminotransferase (ALT/SGPT) 50, Alkaline Phosphatase 96, Pro-B-Type Natriuretic Peptide 3130H, Total Protein 5.9L, Albumin 2.6L, Globulin 3.3, Albumin/Globulin Ratio 0.8L Height (Feet): 6 Height (Inches): 1.00 Weight (Pounds): 190 General Appearance: no apparent distress Cardiovascular: tachycardia Respiratory/Chest: decreased breath sounds Abdomen: distended GARCÍA READ May 14, 2017 10:45
--- NOTE | 2017-05-14 11:02 | Pulmonology Progress Note ---
Assessment/Plan Problems: (1) Acute encephalopathy (2) Non-ST elevation (NSTEMI) myocardial infarction (3) ATN (acute tubular necrosis) (4) Acute hyperglycemia (5) Feeding by G-tube (6) Hypertension Assessment/Plan rectum VRE Nares MRSA renal function improving renal US reviewed Mental status improving troponin questionably increased Cardio consult appreciated might go to telemetry or med/surg if cardio agrees. Subjective ROS Limited/Unobtainable: No Constitutional: Reports: no symptoms HEENT: Repors: no symptoms Respiratory: Reports: no symptoms Allergies: Coded Allergies: No Known Allergies (Unverified , 05/11/17) Objective Last 24 Hour Vital Signs Date Time Temp Pulse Resp B/P (MAP) Pulse Ox O2 Delivery O2 Flow Rate FiO2 05/14/17 09:33 189/105 05/14/17 09:27 88 189/105 05/14/17 09:26 189/105 05/14/17 08:00 88 05/14/17 08:00 97.5 88 19 189/108 99 Room Air 05/14/17 07:37 76 18 Room Air 05/14/17 06:32 158/92 05/14/17 04:00 77 05/14/17 04:00 98.0 87 18 158/92 98 Room Air 05/14/17 00:57 198/94 05/14/17 00:00 74 05/14/17 00:00 98.2 89 18 180/94 100 Room Air 05/13/17 21:36 168/100 05/13/17 20:33 81 168/100 05/13/17 20:00 87 05/13/17 20:00 98.6 92 20 168/100 100 Room Air 05/13/17 20:00 98 Room Air 21 05/13/17 18:33 183/98 05/13/17 16:00 81 05/13/17 16:00 98.2 76 20 155/77 100 Room Air 05/13/17 15:24 198/94 05/13/17 14:21 190/94 05/13/17 12:00 72 05/13/17 12:00 98.2 76 20 194/94 99 Room Air General Appearance: no acute distress HEENT: atraumatic Respiratory/Chest: chest wall non-tender, lungs clear Cardiovascular: normal peripheral pulses, normal rate Abdomen: normal bowel sounds, soft, non tender Genitourinary: normal external genitalia Extremities: no clubbing Microbiology Date/Time Source Procedure Growth Status 05/11/17 19:45 Blood Blood Culture - Preliminary NO GROWTH AFTER 48 HOURS Resulted 05/11/17 19:30 Blood Blood Culture - Preliminary NO GROWTH AFTER 48 HOURS Resulted 05/11/17 21:00 Nasal Nares MRSA Culture - Final Staphylococcus Aureus - Mrsa Complete 05/11/17 21:00 Rectum VRE Culture - Final Enterococcus Faecalis - Vre Complete Laboratory Tests 05/14/17 04:05: White Blood Count 6.7, Red Blood Count 3.82L, Hemoglobin 11.4L, Hematocrit 34.9L , Mean Corpuscular Volume 91, Mean Corpuscular Hemoglobin 30.0, Mean Corpuscular Hemoglobin Concent 32.8, Red Cell Distribution Width 13.6, Platelet Count 247, Mean Platelet Volume 7.6, Neutrophils (%) (Auto) 68.4, Lymphocytes (% ) (Auto) 16.8L, Monocytes (%) (Auto) 6.7, Eosinophils (%) (Auto) 7.3H, Basophils (%) (Auto) 0.8, Sodium Level 146H, Potassium Level 3.6, Chloride Level 112H, Carbon Dioxide Level 28, Anion Gap 6, Blood Urea Nitrogen 35H, Creatinine 1.5H, Estimat Glomerular Filtration Rate 47.1, Glucose Level 271H, Calcium Level 8.0L, Total Bilirubin 0.2, Aspartate Amino Transf (AST/SGOT) 23, Alanine Aminotransferase (ALT/SGPT) 50, Alkaline Phosphatase 96, Pro-B-Type Natriuretic Peptide 3130H, Total Protein 5.9L, Albumin 2.6L, Globulin 3.3, Albumin/Globulin Ratio 0.8L Current Medications Medications (Trade) Dose Ordered Sig/Willem Route PRN Reason Start Time Stop Time Status Last Admin Dose Admin Acetaminophen (Tylenol) 650 mg Q4H PRN ORAL T>100.5 F 05/11/17 21:45 06/10/17 21:44 Albuterol/ Ipratropium (Albuterol/ Ipratropium) 3 ml Q4H PRN HHN Shortness of Breath 05/11/17 21:45 05/16/17 21:44 Amlodipine Besylate (Norvasc) 10 mg DAILY GT 05/14/17 11:00 06/13/17 10:59 Ampicillin Sodium/ Sulbactam Sodium 3 gm/Sodium Chloride 110 ml @ 220 mls/hr Q6HR IVPB 05/12/17 09:00 05/19/17 08:59 05/14/17 06:31 Aspirin (ASA) 81 mg DAILY GT 05/12/17 10:30 06/11/17 10:29 05/14/17 09:27 Clonidine HCl (Catapres) 0.1 mg Q4H PRN ORAL sbp more than 160 05/11/17 21:45 06/10/17 21:44 05/14/17 09:33 Dextrose (Dextrose 50%) STAT PRN IV Hypoglycemia 05/11/17 21:45 06/10/17 21:44 Dextrose (Dextrose 50%) STAT PRN IV Hypoglycemia 05/13/17 06:45 06/12/17 06:44 Docusate Sodium (Colace) 100 mg TID GT 05/12/17 13:00 06/11/17 12:59 05/14/17 09:24 Heparin Sodium (Porcine) (Heparin 5000 units/ml) 5,000 units EVERY 12 HOURS SUBQ 05/12/17 09:00 06/11/17 08:59 05/14/17 09:26 Hydralazine HCl (Apresoline) 50 mg Q8HR ORAL 05/14/17 14:00 06/13/17 13:59 Insulin Aspart (NovoLOG) EVERY 6 HOURS SUBQ 05/13/17 00:00 06/11/17 06:29 05/14/17 06:38 Insulin Detemir (Levemir) 18 units BID SUBQ 05/14/17 09:00 06/13/17 08:59 05/14/17 09:25 Levothyroxine Sodium (Synthroid) 50 mcg ACBREAKFAST ORAL 05/12/17 06:30 06/11/17 06:29 05/14/17 06:32 Lisinopril (Prinivil) 20 mg BID GT 05/12/17 10:30 06/11/17 10:29 05/14/17 09:26 Metoprolol Tartrate (Lopressor) 100 mg Q12HR GT 05/14/17 09:00 06/13/17 08:59 05/14/17 09:27 Morphine Sulfate (Morphine Sulfate) 2 mg Q4H PRN IVP Severe Pain (Pain Scale 7-10) 05/11/17 21:45 05/18/17 21:44 Nitroglycerin (Ntg) 0.4 mg Q5M X 3 DOSES PRN SL Prn Chest Pain 05/11/17 21:45 06/10/17 21:44 Ondansetron HCl (Zofran) 4 mg Q6H PRN IVP Nausea & Vomiting 05/11/17 21:45 06/10/17 21:44 Polyethylene Glycol (Miralax) 17 gm HSPRN PRN ORAL Constipation 05/11/17 21:45 06/10/17 21:44 Ranitidine HCl (Zantac) 150 mg TWICE A DAY GT 05/12/17 18:00 06/11/17 17:59 05/14/17 09:24 Temazepam (Restoril) 15 mg HSPRN PRN ORAL Insomnia 05/11/17 21:45 05/18/17 21:44 JESSE ZAVALA May 14, 2017 11:02
--- NOTE | 2017-05-14 11:20 | Wound Care Consultation ---
Wound Assessment Wound Assessment #1: Wound Present on Admission: Yes New Wound: No Status Change of Wound: No Wound Location Body Site Modif: left Wound Location Body Site: sacral Wound Type: pressure ulcer Victor Manuel Test: Does not Victor Manuel Pressure Ulcer Stage: II Wound Thickness: Partial Thickness Wound Length: 1.5 Wound Width: 1.5 Wound Depth: less than 0.1 Percent of Wound [place]/Red: 100 Wound Drainage Amount: None Wound Drainage Odor: None/Absent Tissue Surrounding Wound: scattered full thickness scar tissue Wound General Appearance: Reddened Wound Assessment #2: Wound Number: 2 Wound Present on Admission: Yes New Wound: No Status Change of Wound: No Wound Location Body Site Modif: right Wound Location Body Site: heel Wound Type: pressure ulcer Victor Manuel Test: Does not Victor Manuel Pressure Ulcer Stage: Deep Tissue Injury Wound Thickness: Full Thickness Wound Length: 1.5 Wound Width: 2.0 Wound Depth: utd Percent of Wound Purple/Maroon: 100 Wound Drainage Amount: None Wound Drainage Odor: None/Absent Tissue Surrounding Wound: full thickness scar tissue Wound General Appearance: Reddened - purple Wound Assessment #3: Wound Number: 3 Wound Present on Admission: Yes New Wound: No Status Change of Wound: No Wound Location Body Site Modif: left Wound Location Body Site: heel Wound Type: pressure ulcer Victor Manuel Test: Does not Victor Manuel Wound Thickness: Full Thickness - scar tissue Wound Length: 2.0 Wound Width: 2.5 Percent of Wound [place]/Red: 100 Wound Drainage Amount: None Wound Drainage Odor: None/Absent Tissue Surrounding Wound: Intact Wound General Appearance: Reddened Wound Comment #1 Left buttock stage II pressure ulcer #2 Right heel DTI pressure ulcer surrounding skin with full thickness scar tissue #3 Left heel with full thickness scar tissue #4 Sacrococcygeal scattered scar tissue #5 Left and right lower anterior leg with scattered dry scabs #6 Right trochanter full thickness scar tissue extending to right thigh Recommendation -Local wound care per protocol -Keep clean and dry -Turn and reposition -Offload both heels -Optimize nutrition -Heel protector on both heels -Low air loss SPR mattress -Assess and f/u accordingly for any changes GABI RAMIREZ RN May 14, 2017 11:20
[2017-05-14 12:00] VITALS: BP 161/86
[2017-05-14] MEDS: HydrALAZINE 50mg tab ORAL SCH ×2 (13:47→20:53)
--- NOTE | 2017-05-14 15:31 | Diagnostic Imaging Report ---
Indication: DYSPNEA Technique: One view of the chest Comparison: 05/11/2017 Findings: Lungs and pleural spaces are clear. Heart size is normal. Aorta is tortuous. Impression: No acute process
[2017-05-14 16:06] VITALS: BP 159/89
--- NOTE | 2017-05-14 17:00 | Progress Note ---
DATE: 05/13/2017 SUBJECTIVE: The patient is awake with eye contact without normal response. PHYSICAL EXAMINATION: VITAL SIGNS: Blood pressure 168/100, pulse 81, respirations 20, and temperature 98.6 degrees. HEENT: Eyes are normal. ENT, mucous membranes are moist and intact. NECK: Supple with no JVD and without lymph nodes. LUNGS: Clear. HEART: Normal sounds with regular beat. ABDOMEN: Soft and nontender with normal bowel sounds. Gastrostomy site is clean. EXTREMITIES: Warm without cyanosis, clubbing, or edema. LABORATORY AND DIAGNOSTIC DATA: His hemoglobin is 11.3, hematocrit 35.8 with MCV of 91, WBC of 6.6, and platelets are 252,000. BUN and creatinine is 39 and 1.5 respectively. His sodium is 149, potassium 3.8, chloride 115, and CO2 was 27. The patient had two episodes of nonsustained ventricular tachycardia, one of five beats and one of eight beats, heart rate of less than 140. The patient's troponin continued to decline, was 0.059 yesterday and 0.057 today. His pro-BNP is 1800. Chest x-ray shows no active disease. Blood cultures so far are negative. IMPRESSION AND PLAN: No explanation of the patient's sudden loss of consciousness, . Neurological apartment leasing consultant has been called to assist in the management of this case. Martina Morales M.D. DR: MAHENDRA JOB#: [id number] CC:
--- NOTE | 2017-05-14 18:20 | Cardiology Progress Note ---
Assessment/Plan Assessment/Plan 1. Abnormal electrocardiogram, chronicity of which is unknown. 2. Abnormal cardiac enzymes of questionable significance in light of renal insufficiency. 3. Renal insufficiency. 4. History of hyperlipidemia. 5. Diabetes mellitus. 6. History of hypertension. 7. History of bipolar disorder 8. wide complex tachy non sustained trops persistently min abn will repat in am prelim echo normal lv function to review bp is elevated will add norvasc k supplement mg level in am bb ? candidacy for cardiac imaging Subjective ROS Limited/Unobtainable: Yes Objective Last 24 Hour Vital Signs Date Time Temp Pulse Resp B/P (MAP) Pulse Ox O2 Delivery O2 Flow Rate FiO2 05/14/17 18:02 161/94 05/14/17 18:02 161/94 05/14/17 16:06 98.8 80 21 159/89 98 Room Air 05/14/17 16:00 80 05/14/17 15:43 80 05/14/17 13:47 161/87 05/14/17 13:47 161/87 05/14/17 12:00 97.4 67 22 161/86 99 Room Air 05/14/17 12:00 63 05/14/17 12:00 97.4 67 22 161/86 99 Room Air 05/14/17 10:59 64 152/79 05/14/17 09:33 189/105 05/14/17 09:27 88 189/105 05/14/17 09:26 189/105 05/14/17 08:00 88 05/14/17 08:00 97.5 88 19 189/108 99 Room Air 05/14/17 07:37 76 18 Room Air 05/14/17 06:32 158/92 05/14/17 04:00 77 05/14/17 04:00 98.0 87 18 158/92 98 Room Air 05/14/17 00:57 198/94 05/14/17 00:00 74 05/14/17 00:00 98.2 89 18 180/94 100 Room Air 05/13/17 21:36 168/100 05/13/17 20:33 81 168/100 05/13/17 20:00 87 05/13/17 20:00 98.6 92 20 168/100 100 Room Air 05/13/17 20:00 98 Room Air 21 05/13/17 18:33 183/98 General Appearance: no apparent distress Neck: supple Cardiovascular: normal rate, regular rhythm Respiratory/Chest: lungs clear, normal breath sounds Abdomen: normal bowel sounds, non tender, soft Extremities: no swelling Intake and Output 05/14/17 05/15/17 19:00 07:00 Intake Total 1157.5 ml Output Total 750 ml Balance 407.5 ml IV Total 387.5 ml Tube Feeding 630 ml Other 140 ml Output Urine Total 750 ml Laboratory Tests Test 05/14/17 04:05 White Blood Count 6.7 K/UL (4.8-10.8) Red Blood Count 3.82 M/UL (4.70-6.10) L Hemoglobin 11.4 G/DL (14.2-18.0) L Hematocrit 34.9 % (42.0-52.0) L Mean Corpuscular Volume 91 FL (80-99) Mean Corpuscular Hemoglobin 30.0 PG (27.0-31.0) Mean Corpuscular Hemoglobin Concent 32.8 G/DL (32.0-36.0) Red Cell Distribution Width 13.6 % (11.6-14.8) Platelet Count 247 K/UL (150-450) Mean Platelet Volume 7.6 FL (6.5-10.1) Neutrophils (%) (Auto) 68.4 % (45.0-75.0) Lymphocytes (%) (Auto) 16.8 % (20.0-45.0) L Monocytes (%) (Auto) 6.7 % (1.0-10.0) Eosinophils (%) (Auto) 7.3 % (0.0-3.0) H Basophils (%) (Auto) 0.8 % (0.0-2.0) Sodium Level 146 MMOL/L (136-145) H Potassium Level 3.6 MMOL/L (3.5-5.1) Chloride Level 112 MMOL/L (98-107) H Carbon Dioxide Level 28 MMOL/L (21-32) Anion Gap 6 mmol/L (5-15) Blood Urea Nitrogen 35 mg/dL (7-18) H Creatinine 1.5 MG/DL (0.55-1.30) H Estimat Glomerular Filtration Rate 47.1 mL/min (>60) Glucose Level 271 MG/DL (74-106) H Calcium Level 8.0 MG/DL (8.5-10.1) L Total Bilirubin 0.2 MG/DL (0.2-1.0) Aspartate Amino Transf (AST/SGOT) 23 U/L (15-37) Alanine Aminotransferase (ALT/SGPT) 50 U/L (12-78) Alkaline Phosphatase 96 U/L (46-116) Pro-B-Type Natriuretic Peptide 3130 pg/mL (0-125) H Total Protein 5.9 G/DL (6.4-8.2) L Albumin 2.6 G/DL (3.4-5.0) L Globulin 3.3 g/dL Albumin/Globulin Ratio 0.8 (1.0-2.7) L Microbiology Date/Time Source Procedure Growth Status 05/11/17 19:45 Blood Blood Culture - Preliminary NO GROWTH AFTER 48 HOURS Resulted 05/11/17 19:30 Blood Blood Culture - Preliminary NO GROWTH AFTER 48 HOURS Resulted 05/11/17 21:00 Nasal Nares MRSA Culture - Final Staphylococcus Aureus - Mrsa Complete 05/11/17 21:00 Rectum VRE Culture - Final Enterococcus Faecalis - Vre Complete FAB CAMBPELL May 14, 2017 18:20
[2017-05-14 20:00] VITALS: BP 152/85
[2017-05-15] VITALS: BP 160/99
[2017-05-15] MEDS: Ampicillin/Sulbactam Sod 3 GM in NS 110 ML IVPB SCH ×4 (00:17→17:19)
[2017-05-15] MEDS: NovoLOG Insulin Flexpen SUBQ SCH ×5 (00:20→17:40)
[2017-05-15 04:00] VITALS: BP 158/87
[2017-05-15 04:56] LABS: BASOPHILS % (AUTO) 0.9 % (0.0-2.0); EOSINOPHILS % (AUTO) 6.4 % (0.0-3.0); LYMPHOCYTES % (AUTO) 14.5 % (20.0-45.0); MEAN CORPUSCULAR HEMOGLOBIN 28.7 PG (27.0-31.0); MEAN CORPUSCULAR HGB CONC 31.8 G/DL (32.0-36.0); MEAN CORPUSCULAR VOLUME 90 FL (80-99); MEAN PLATELET VOLUME 7.5 FL (6.5-10.1); MONOCYTES % (AUTO) 5.4 % (1.0-10.0); NEUTROPHILS % (AUTO) 72.8 % (45.0-75.0); PLATELET COUNT 244 K/UL (150-450); RED BLOOD COUNT 3.96 M/UL (4.70-6.10); WHITE BLOOD COUNT 7.4 K/UL (4.8-10.8)
[2017-05-15 05:28] LABS: ALANINE AMINOTRANSFERASE 41 U/L (12-78); ALBUMIN/GLOBULIN RATIO 0.7 (1.0-2.7); ANION GAP 8 mmol/L (5-15); ASPARTATE AMINO TRANSFERASE 21 U/L (15-37); CALCIUM 8.1 MG/DL (8.5-10.1); CARBON DIOXIDE 28 MMOL/L (21-32); CHLORIDE 112 MMOL/L (98-107); CREATININE 1.5 MG/DL (0.55-1.30); GLOMERULAR FILTRATION RATE 47.1 mL/min (>60); MAGNESIUM 2.3 MG/DL (1.8-2.4); POTASSIUM 3.8 MMOL/L (3.5-5.1); SODIUM 148 MMOL/L (136-145); TOTAL PROTEIN 6.1 G/DL (6.4-8.2)
[2017-05-15] MEDS: HydrALAZINE 50mg tab ORAL SCH ×3 (06:33→17:18)
[2017-05-15 08:00] VITALS: BP 128/61
--- NOTE | 2017-05-15 08:15 | Progress Note ---
DATE: 05/14/2017 SUBJECTIVE: The patient remained hypertensive in spite of increasing his antihypertensive medication. OBJECTIVE: VITAL SIGNS: Blood pressure now is 152/85, his pulse is 89, respirations were 20, and temperature 97.9. HEENT: Eyes were normal. ENT, mucous membranes were moist and intact. NECK: Supple with no JVD without lymph nodes. LUNGS: Clear. HEART: Normal sounds with regular beats. There is no S3, S4, or pericardial rub. ABDOMEN: Soft and nontender with normal bowel sounds. EXTREMITIES: Warm without cyanosis, clubbing, or edema. LABORATORY AND DIAGNOSTIC DATA: Hemoglobin 11.4, hematocrit 34.9, MCV of 91, WBC of 6.7, and platelets are 247,000. His BUN and creatinine is 35 and 1.5 respectively. Sodium was 143, potassium 3.3, chloride 112, CO2 is 28, and calcium is 8. SGOT, SGPT, and alkaline phosphatase are normal. His pro-BNP is 3100. Total protein is 5.9, albumin is 2.6. Chest x-ray done today revealed no active disease. IMPRESSION AND PLAN: The patient is awake now but obtunded. Chest x-ray without infiltrates. however, the patient lost consciousness. small business consultant was called to assist in the management of this case. The cholesterol is still pending. Repeat laboratory tests will be done in the a.m. Martina Morales M.D. DR: WESTLEY JOB#: [id number] CC:
--- NOTE | 2017-05-15 08:15 | Consultation ---
DATE OF CONSULTATION: 05/14/2017 NEUROLOGICAL CONSULTATION CONSULTING PHYSICIAN: Zohaib Mejia M.D. REQUESTING PHYSICIAN: Martina Morales M.D. HISTORY OF PRESENT ILLNESS: The patient is a 62-year-old man with a preexistent multiple medical issues including massive stroke, admitted after he developed acute onset of changes in his mental status, he become nonverbal and nonresponsive. On admission, laboratory work included a mild anemia, hemoglobin 12.2 and hematocrit 40.2, normal coagulation panel, toxicology was negative, and urinalysis with 5 to 10 wbcs, 1+ leukocyte esterase, and 3+ protein. Chemistry panel, elevated BUN of 69, creatinine 2.0, glucose 183, sodium 153, lactic acid elevated 2.60, and troponin 0.073 with triglycerides of 307. There is normal TSH. Normal liver function. Imaging studies included stat CT of the brain without contrast revealing no acute intracranial abnormalities. There is prominent generalized atrophy, periventricular hypoattenuation, and small area of right frontal encephalomalacia suggestive of an old infarct. Chest x-ray, no acute cardiopulmonary disease and 2D echocardiogram with ejection fraction of 65 to 70. Renal ultrasound, right renal pelviectasis, mild diffuse bladder wall thickening, and prominent prostate. The patient was treated for underlying infection and metabolic derangement. He has evaluation for underlying [place] and renal failure. Since admission till present, his troponin has somewhat increased. Mental status with slight improvement, but still remained nonverbal. His baseline, patient is communicative, confusion. He has hemiplegia following previous stroke. PAST MEDICAL HISTORY: The patient with a history of hypertension, G-tube placement, chronic renal insufficiency, diabetes type 2, bipolar disorder, cardiac arrhythmia, bronchial asthma, vitamin D deficiency, hypothyroidism, and hyperlipidemia. MEDICATIONS: Treatment prior to admission included Cardizem, hydralazine, clonidine, metoprolol, metformin, Lipitor, lisinopril, vitamin supplements, and omeprazole. ALLERGIES: None reported. SOCIAL HISTORY: Resident of a convalescent facility. REVIEW OF SYSTEMS: Unable to obtain due to the patient's status. PHYSICAL EXAMINATION: GENERAL: This is a well-developed, somewhat ill-appearing man, lying in bed, appears to be asleep. VITAL SIGNS: His vital signs are stable. Blood pressure 152/79, he is afebrile, and heart rate of 64. HEENT: Head normocephalic. There is no injuries noted. NECK: Supple. No meningeal signs. MUSCULOSKELETAL EXAMINATION: Remarkable for muscle wasting, deformities in both lower extremities predominantly distally, and flaccid left upper extremity. Peripheral pulses 1+ and symmetric. MENTAL STATUS: The patient is lethargic and on vigorous stimulation, briefly open eyes, does not follow command, and mumbling incoherently few words only. He was able to follow very simple commands. CRANIAL NERVE II: Pupils both responding to light and accommodation. Extraocular movement full range. Fundi poorly visualized. CRANIAL NERVE V: Normal corneal responses. CRANIAL NERVE VII: Drooped left nasolabial fold. CRANIAL NERVE VIII: Grossly normal hearing. CRANIAL NERVES IX THROUGH XII: The patient was able to open his mouth. He has a very poor dentition. Tongue appears midline. MOTOR EXAMINATION: Able to move right arm defensively. Left arm flaccid. Both lower extremities, no spontaneous movement. Spastic deformities in both ankles. Significant muscle wasting in both lower extremities apparently from disuse. Deep tendon reflexes depressed bilaterally. Plantar response is mute bilaterally. SENSORY EXAMINATION: No response to pin stimulation. IMPRESSION: 1. 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 2. 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 3. New onset of persistent lethargy, most likely multifactorial including underlying metabolic derangement. 4. Ivn-hnklpmw-iufxlnkin diabetes mellitus. 5. Hypertension. 6. Hyperlipidemia. 7. Placement of gastrostomy tube. RECOMMENDATIONS: The patient to continue with metabolic correction, intravenous fluids, and antibiotics for covering underlying infection. Recheck B12, GAYLE, and sedimentation rate. Hold unessential or sedating medications. The patient remained on maintenance treatment. Thank you for allowing me to see this interesting patient in neurological consultation. Zohaib Mejia M.D. DR: DEBBIE JOB#: [id number] CC:
[2017-05-15] MEDS: Levemir Flexpen SUBQ SCH ×2 (09:00→17:40)
[2017-05-15] MEDS: Metoprolol Tartrate 50mg tab GT SCH ×2 (09:14→21:14)
[2017-05-15] MEDS: Docusate 100mg/10ml Liq GT SCH ×3 (09:14→17:18)
[2017-05-15] MEDS: Lisinopril 20mg tab GT SCH ×2 (09:14→17:18)
[2017-05-15] MEDS: Aspirin Baby 81mg GT SCH (09:14)
[2017-05-15] MEDS: Heparin 5000 units/ml inj SUBQ SCH ×2 (09:15→21:16)
--- NOTE | 2017-05-15 10:26 | Pulmonology Progress Note ---
Assessment/Plan Problems: (1) Acute encephalopathy (2) Non-ST elevation (NSTEMI) myocardial infarction (3) ATN (acute tubular necrosis) (4) Acute hyperglycemia (5) Feeding by G-tube (6) Hypertension Assessment/Plan no new complains rectum VRE Nares MRSA renal function improving renal US reviewed Mental status improving f/u cardio recommendations. Subjective ROS Limited/Unobtainable: Yes Allergies: Coded Allergies: No Known Allergies (Unverified , 05/11/17) Objective Last 24 Hour Vital Signs Date Time Temp Pulse Resp B/P (MAP) Pulse Ox O2 Delivery O2 Flow Rate FiO2 05/15/17 09:14 73 128/61 05/15/17 09:14 73 128/61 05/15/17 09:14 128/61 05/15/17 08:00 97.9 73 18 128/61 97 Room Air 05/15/17 08:00 88 05/15/17 07:23 65 18 Room Air 21 05/15/17 06:33 158/87 05/15/17 04:00 97.9 75 18 158/87 98 Room Air 05/15/17 04:00 78 05/15/17 00:23 160/90 05/15/17 00:00 75 05/15/17 00:00 97.9 80 18 160/99 96 Room Air 05/14/17 20:53 152/85 05/14/17 20:53 89 152/85 05/14/17 20:00 92 05/14/17 20:00 97.9 89 20 152/85 96 Room Air 05/14/17 18:02 161/94 05/14/17 18:02 161/94 05/14/17 16:06 98.8 80 21 159/89 98 Room Air 05/14/17 16:00 80 05/14/17 15:43 80 05/14/17 13:47 161/87 05/14/17 13:47 161/87 05/14/17 12:00 97.4 67 22 161/86 99 Room Air 05/14/17 12:00 63 05/14/17 12:00 97.4 67 22 161/86 99 Room Air 05/14/17 10:59 64 152/79 General Appearance: WD/WN HEENT: atraumatic, anicteric Respiratory/Chest: lungs clear, normal breath sounds Cardiovascular: normal peripheral pulses, regular rhythm Abdomen: soft, non tender, no organomegaly Extremities: no cyanosis, no clubbing Skin: no ulcers Laboratory Tests 05/15/17 03:55: White Blood Count 7.4, Red Blood Count 3.96L, Hemoglobin 11.4L, Hematocrit 35.8L , Mean Corpuscular Volume 90, Mean Corpuscular Hemoglobin 28.7, Mean Corpuscular Hemoglobin Concent 31.8L, Red Cell Distribution Width 14.0, Platelet Count 244, Mean Platelet Volume 7.5, Neutrophils (%) (Auto) 72.8, Lymphocytes (%) (Auto) 14.5L, Monocytes (%) (Auto) 5.4, Eosinophils (%) (Auto) 6.4H, Basophils (%) (Auto) 0.9, Sodium Level 148H, Potassium Level 3.8, Chloride Level 112H, Carbon Dioxide Level 28, Anion Gap 8, Blood Urea Nitrogen 43H, Creatinine 1.5H, Estimat Glomerular Filtration Rate 47.1, Glucose Level 244H, Calcium Level 8.1L, Phosphorus Level 3.0, Magnesium Level 2.3, Total Bilirubin 0.3, Aspartate Amino Transf (AST/SGOT) 21, Alanine Aminotransferase ( ALT/SGPT) 41, Alkaline Phosphatase 97, Troponin I 0.039, Total Protein 6.1L, Albumin 2.6L, Globulin 3.5, Albumin/Globulin Ratio 0.7L Current Medications Medications (Trade) Dose Ordered Sig/Willem Route PRN Reason Start Time Stop Time Status Last Admin Dose Admin Acetaminophen (Tylenol) 650 mg Q4H PRN ORAL T>100.5 F 05/11/17 21:45 06/10/17 21:44 Albuterol/ Ipratropium (Albuterol/ Ipratropium) 3 ml Q4H PRN HHN Shortness of Breath 05/11/17 21:45 05/16/17 21:44 Amlodipine Besylate (Norvasc) 10 mg DAILY GT 05/14/17 11:00 06/13/17 10:59 05/15/17 09:14 Ampicillin Sodium/ Sulbactam Sodium 3 gm/Sodium Chloride 110 ml @ 220 mls/hr Q6HR IVPB 05/12/17 09:00 05/19/17 08:59 05/15/17 06:32 Aspirin (ASA) 81 mg DAILY GT 05/12/17 10:30 06/11/17 10:29 05/15/17 09:14 Clonidine HCl (Catapres) 0.1 mg Q4H PRN ORAL sbp more than 160 05/11/17 21:45 06/10/17 21:44 05/15/17 00:23 Dextrose (Dextrose 50%) STAT PRN IV Hypoglycemia 05/13/17 06:45 06/12/17 06:44 Docusate Sodium (Colace) 100 mg TID GT 05/12/17 13:00 06/11/17 12:59 05/15/17 09:14 Heparin Sodium (Porcine) (Heparin 5000 units/ml) 5,000 units EVERY 12 HOURS SUBQ 05/12/17 09:00 06/11/17 08:59 05/15/17 09:15 Hydralazine HCl (Apresoline) 50 mg Q8HR ORAL 05/14/17 14:00 06/13/17 13:59 05/15/17 06:33 Insulin Aspart (NovoLOG) EVERY 6 HOURS SUBQ 05/13/17 00:00 06/11/17 06:29 05/15/17 06:38 Insulin Detemir (Levemir) 18 units BID SUBQ 05/14/17 09:00 06/13/17 08:59 05/14/17 18:04 Levothyroxine Sodium (Synthroid) 50 mcg ACBREAKFAST ORAL 05/12/17 06:30 06/11/17 06:29 05/15/17 06:33 Lisinopril (Prinivil) 20 mg BID GT 05/12/17 10:30 06/11/17 10:29 05/15/17 09:14 Metoprolol Tartrate (Lopressor) 100 mg Q12HR GT 05/14/17 09:00 06/13/17 08:59 05/15/17 09:14 Morphine Sulfate (Morphine Sulfate) 2 mg Q4H PRN IVP Severe Pain (Pain Scale 7-10) 05/11/17 21:45 05/18/17 21:44 Nitroglycerin (Ntg) 0.4 mg Q5M X 3 DOSES PRN SL Prn Chest Pain 05/11/17 21:45 06/10/17 21:44 Ondansetron HCl (Zofran) 4 mg Q6H PRN IVP Nausea & Vomiting 05/11/17 21:45 06/10/17 21:44 Polyethylene Glycol (Miralax) 17 gm HSPRN PRN ORAL Constipation 05/11/17 21:45 06/10/17 21:44 Ranitidine HCl (Zantac) 150 mg TWICE A DAY GT 05/12/17 18:00 06/11/17 17:59 05/15/17 09:14 Temazepam (Restoril) 15 mg HSPRN PRN ORAL Insomnia 05/11/17 21:45 05/18/17 21:44 JESSE ZAVALA May 15, 2017 10:26
[2017-05-15 12:00] VITALS: BP 162/84
--- NOTE | 2017-05-15 12:02 | Cardiology Progress Note ---
Assessment/Plan Assessment/Plan 1. Abnormal electrocardiogram, chronicity of which is unknown. 2. Abnormal cardiac enzymes of questionable significance in light of renal insufficiency. 3. Renal insufficiency. 4. History of hyperlipidemia. 5. Diabetes mellitus. 6. History of hypertension. 7. History of bipolar disorder 8. wide complex tachy non sustained trops now normal prelim echo normal lv function to review bp is elevated at time despite norvasc k supplement yest bb ? candidacy for cardiac imaging? i have requested copies of records for other hospital d/w their med rec dept personally he is felt to be obtunded will wait for neuro sx improve prior to any other cardiac eval if ekg is unchanged them i am less inclined to pursuit Subjective ROS Limited/Unobtainable: Yes Objective Last 24 Hour Vital Signs Date Time Temp Pulse Resp B/P (MAP) Pulse Ox O2 Delivery O2 Flow Rate FiO2 05/15/17 09:14 73 128/61 05/15/17 09:14 73 128/61 05/15/17 09:14 128/61 05/15/17 08:00 97.9 73 18 128/61 97 Room Air 05/15/17 08:00 88 05/15/17 07:23 65 18 Room Air 21 05/15/17 06:33 158/87 05/15/17 04:00 97.9 75 18 158/87 98 Room Air 05/15/17 04:00 78 05/15/17 00:23 160/90 05/15/17 00:00 75 05/15/17 00:00 97.9 80 18 160/99 96 Room Air 05/14/17 20:53 152/85 05/14/17 20:53 89 152/85 05/14/17 20:00 92 05/14/17 20:00 97.9 89 20 152/85 96 Room Air 05/14/17 18:02 161/94 05/14/17 18:02 161/94 05/14/17 16:06 98.8 80 21 159/89 98 Room Air 05/14/17 16:00 80 05/14/17 15:43 80 05/14/17 13:47 161/87 05/14/17 13:47 161/87 05/14/17 12:00 97.4 67 22 161/86 99 Room Air 05/14/17 12:00 63 05/14/17 12:00 97.4 67 22 161/86 99 Room Air General Appearance: no apparent distress Cardiovascular: normal rate, regular rhythm Respiratory/Chest: lungs clear, normal breath sounds Abdomen: normal bowel sounds, non tender, soft Extremities: no swelling Laboratory Tests Test 05/15/17 03:55 White Blood Count 7.4 K/UL (4.8-10.8) Red Blood Count 3.96 M/UL (4.70-6.10) L Hemoglobin 11.4 G/DL (14.2-18.0) L Hematocrit 35.8 % (42.0-52.0) L Mean Corpuscular Volume 90 FL (80-99) Mean Corpuscular Hemoglobin 28.7 PG (27.0-31.0) Mean Corpuscular Hemoglobin Concent 31.8 G/DL (32.0-36.0) L Red Cell Distribution Width 14.0 % (11.6-14.8) Platelet Count 244 K/UL (150-450) Mean Platelet Volume 7.5 FL (6.5-10.1) Neutrophils (%) (Auto) 72.8 % (45.0-75.0) Lymphocytes (%) (Auto) 14.5 % (20.0-45.0) L Monocytes (%) (Auto) 5.4 % (1.0-10.0) Eosinophils (%) (Auto) 6.4 % (0.0-3.0) H Basophils (%) (Auto) 0.9 % (0.0-2.0) Sodium Level 148 MMOL/L (136-145) H Potassium Level 3.8 MMOL/L (3.5-5.1) Chloride Level 112 MMOL/L (98-107) H Carbon Dioxide Level 28 MMOL/L (21-32) Anion Gap 8 mmol/L (5-15) Blood Urea Nitrogen 43 mg/dL (7-18) H Creatinine 1.5 MG/DL (0.55-1.30) H Estimat Glomerular Filtration Rate 47.1 mL/min (>60) Glucose Level 244 MG/DL (74-106) H Calcium Level 8.1 MG/DL (8.5-10.1) L Phosphorus Level 3.0 MG/DL (2.5-4.9) Magnesium Level 2.3 MG/DL (1.8-2.4) Total Bilirubin 0.3 MG/DL (0.2-1.0) Aspartate Amino Transf (AST/SGOT) 21 U/L (15-37) Alanine Aminotransferase (ALT/SGPT) 41 U/L (12-78) Alkaline Phosphatase 97 U/L (46-116) Troponin I 0.039 ng/mL (0.000-0.056) Total Protein 6.1 G/DL (6.4-8.2) L Albumin 2.6 G/DL (3.4-5.0) L Globulin 3.5 g/dL Albumin/Globulin Ratio 0.7 (1.0-2.7) L FAB CAMPBELL May 15, 2017 12:02
--- NOTE | 2017-05-15 13:18 | Nephrology Progress Note ---
Assessment/Plan Problem List: (1) Dehydration (2) Hypothyroidism (3) Hypertension (4) ATN (acute tubular necrosis) Assessment Renal: Dehydration and Hypernatremia Renal failure- DM Other: (1) Acute encephalopathy (2) Non-ST elevation (NSTEMI) myocardial infarction (3) Lactic acidosis and UTI (4) Acute hyperglycemia (5) Feeding by G-tube (6) Hypertension Plan Plan; free water Adjust BP meds and Electrolytes- add Norvasc- up the dose of Hydralazine avoid nephrotoxics Per consultants monitor renal parameters Subjective ROS Limited/Unobtainable: No Constitutional: Reports: malaise Objective Objective Last 24 Hour Vital Signs Date Time Temp Pulse Resp B/P (MAP) Pulse Ox O2 Delivery O2 Flow Rate FiO2 05/15/17 13:01 162/84 05/15/17 13:01 162/84 05/15/17 12:00 97.5 68 18 162/84 95 Room Air 05/15/17 12:00 67 05/15/17 09:14 73 128/61 05/15/17 09:14 73 128/61 05/15/17 09:14 128/61 05/15/17 08:00 97.9 73 18 128/61 97 Room Air 05/15/17 08:00 88 05/15/17 07:23 65 18 Room Air 21 05/15/17 06:33 158/87 05/15/17 04:00 97.9 75 18 158/87 98 Room Air 05/15/17 04:00 78 05/15/17 00:23 160/90 05/15/17 00:00 75 05/15/17 00:00 97.9 80 18 160/99 96 Room Air 05/14/17 20:53 152/85 05/14/17 20:53 89 152/85 05/14/17 20:00 92 05/14/17 20:00 97.9 89 20 152/85 96 Room Air 05/14/17 18:02 161/94 05/14/17 18:02 161/94 05/14/17 16:06 98.8 80 21 159/89 98 Room Air 05/14/17 16:00 80 05/14/17 15:43 80 05/14/17 13:47 161/87 05/14/17 13:47 161/87 Intake and Output 05/15/17 05/16/17 19:00 07:00 Intake Total 110 ml Balance 110 ml IV Total 110 ml Laboratory Tests 05/15/17 03:55: White Blood Count 7.4, Red Blood Count 3.96L, Hemoglobin 11.4L, Hematocrit 35.8L , Mean Corpuscular Volume 90, Mean Corpuscular Hemoglobin 28.7, Mean Corpuscular Hemoglobin Concent 31.8L, Red Cell Distribution Width 14.0, Platelet Count 244, Mean Platelet Volume 7.5, Neutrophils (%) (Auto) 72.8, Lymphocytes (%) (Auto) 14.5L, Monocytes (%) (Auto) 5.4, Eosinophils (%) (Auto) 6.4H, Basophils (%) (Auto) 0.9, Sodium Level 148H, Potassium Level 3.8, Chloride Level 112H, Carbon Dioxide Level 28, Anion Gap 8, Blood Urea Nitrogen 43H, Creatinine 1.5H, Estimat Glomerular Filtration Rate 47.1, Glucose Level 244H, Calcium Level 8.1L, Phosphorus Level 3.0, Magnesium Level 2.3, Total Bilirubin 0.3, Aspartate Amino Transf (AST/SGOT) 21, Alanine Aminotransferase ( ALT/SGPT) 41, Alkaline Phosphatase 97, Troponin I 0.039, Total Protein 6.1L, Albumin 2.6L, Globulin 3.5, Albumin/Globulin Ratio 0.7L Height (Feet): 6 Height (Inches): 1.00 Weight (Pounds): 190 General Appearance: no apparent distress Cardiovascular: normal rate Respiratory/Chest: decreased breath sounds Abdomen: soft, distended Objective no change GARCÍA READ May 15, 2017 13:18
--- NOTE | 2017-05-15 14:17 | Cardiology Report ---
APPROVED REPORT EKG Measurement Heart [id number] Poor data quality, Sinus rhythm Inferior infarct, age undetermined Lateral t wave inversion Abnormal ECG
[2017-05-15 16:00] VITALS: BP 151/79
[2017-05-15 20:00] VITALS: BP 159/76
[2017-05-16] VITALS (7 sets, daily range): BP systolic 139–169; BP diastolic 71–85
[2017-05-16] MEDS: Ampicillin/Sulbactam Sod 3 GM in NS 110 ML IVPB SCH ×2 (00:20→07:00)
[2017-05-16] MEDS: HydrALAZINE 50mg tab ORAL SCH ×5 (00:20→23:51)
[2017-05-16] MEDS: NovoLOG Insulin Flexpen SUBQ SCH ×5 (00:21→23:46)
[2017-05-16 04:51] LABS: BASOPHILS % (AUTO) 0.6 % (0.0-2.0); LYMPHOCYTES % (AUTO) 16.2 % (20.0-45.0); MEAN CORPUSCULAR HEMOGLOBIN 29.7 PG (27.0-31.0); MEAN CORPUSCULAR HGB CONC 32.2 G/DL (32.0-36.0); MEAN CORPUSCULAR VOLUME 92 FL (80-99); MEAN PLATELET VOLUME 7.5 FL (6.5-10.1); NEUTROPHILS % (AUTO) 72.2 % (45.0-75.0); PLATELET COUNT 247 K/UL (150-450); RED BLOOD COUNT 3.85 M/UL (4.70-6.10); RED CELL DISTRIBUTION WIDTH 14.4 % (11.6-14.8); WHITE BLOOD COUNT 8.3 K/UL (4.8-10.8)
[2017-05-16 05:23] LABS: ANION GAP 6 mmol/L (5-15); CALCIUM 8.2 MG/DL (8.5-10.1); CARBON DIOXIDE 29 MMOL/L (21-32); CHLORIDE 113 MMOL/L (98-107); CREATININE 1.5 MG/DL (0.55-1.30); GLOMERULAR FILTRATION RATE 47.1 mL/min (>60); POTASSIUM 3.8 MMOL/L (3.5-5.1); SODIUM 148 MMOL/L (136-145)
[2017-05-16] MEDS: Doxazosin 1mg Tab ORAL SCH ×2 (06:59→16:37)
--- NOTE | 2017-05-16 08:15 | Progress Note ---
DATE: 05/16/2017 SUBJECTIVE: The patient is awake, alert, obtunded, and afebrile. He has still uncontrolled high blood pressure in spite of multiple corrections. PHYSICAL EXAMINATION: VITAL SIGNS: Blood pressure 159/75, his pulse is 80, respirations were 18, and temperature 98.1. HEENT: Eyes were normal. ENT, mucous membranes were moist and intact. NECK: Supple with no JVD without lymph nodes. LUNGS: Clear. HEART: Normal sounds with regular beats. ABDOMEN: Soft and nontender with normal bowel sounds. Gastrostomy site is clean. EXTREMITIES: Warm without cyanosis, clubbing, or edema. LABORATORY DATA: Hemoglobin 11.4, hematocrit 35.8 with MCV of 90, WBC of 7.4, and platelets 244,000. His BUN and creatinine is 43 and 1.5 respectively. His sodium is 148, potassium 3.8, chloride 112, and CO2 is 28. His calcium is 8.1, phosphorus 3, and magnesium 2.3. SGOT, SGPT, and alkaline phosphatase are normal. His troponin continued to decline. IMPRESSION AND PLAN: 1. The patient nephrology, cardiology, pulmonary, and neurology consultants are pending. 2. There is no good explanation for patient's loss of consciousness based on the imaging studies and laboratory test. 3. The patient currently is on multiple medications for blood pressure mg q.6 h., amlodipine 10 mg daily, metoprolol 100 mg q.12 h., lisinopril 20 mg b.i.d., and 4 mg daily. Repeat laboratory tests will be done in the a.m. He will wait for Neurology consult. Martina Morales M.D. DR: DEONNA JOB#: [id number] CC:
[2017-05-16] MEDS: Metoprolol Tartrate 50mg tab GT SCH (09:05)
[2017-05-16] MEDS: Docusate 100mg/10ml Liq GT SCH ×3 (09:05→18:10)
[2017-05-16] MEDS: Lisinopril 20mg tab GT SCH ×2 (09:05→18:11)
[2017-05-16] MEDS: Aspirin Baby 81mg GT SCH (09:05)
[2017-05-16] MEDS: Heparin 5000 units/ml inj SUBQ SCH ×2 (09:07→22:12)
[2017-05-16] MEDS: Levemir Flexpen SUBQ SCH ×2 (09:08→18:12)
--- NOTE | 2017-05-16 09:37 | Consultation ---
History of Present Illness General Date patient seen: May 16, 2017 Time patient seen: 09:37 Chief Complaint: Altered Mental Status Referring physician: Dr. Morales Reason for Consultation: inpateint management Present Illness HPI 62 y/o M with hx of HTN, CKD, DM2, bipolar dz/schizophrenia, GERD, cardiac arrhythmia, Dementia, CAD with prior NH, MS, osteoporosis, asthma, VIt D def, hypothyroidism, HLD, dysphagia s/p GT, R MCA CVA with left hemiplegia, s/p trach is admitted on 05/11 due to acute onset of AMS and speech difficulties. Initial CT showed no acute abnormalities. Initially treated for possible underlying infection +/- metabolic derangement Upon admission mildly elevated lactic acid, BOOGIE. Reported patient was not sick prior to admission, no fevers ID is consulted for evaluation of possible underlying infectious process contributing to AMS. Patient has been afebrile, no leukocytosis. CXR with no acute process. Bcx NTD. u/a only mild pyuria. On empiric Unasyn. Allergies: Coded Allergies: No Known Allergies (Unverified , 05/11/17) Medication History Scheduled Ascorbic Acid* (Vitamin C*), 500 MG GT TWICE A DAY, (Reported) Aspirin* (Aspir 81*), 81 MG GT DAILY, (Reported) Atorvastatin Calcium* (Lipitor*), 10 MG GT BEDTIME, (Reported) Cholecalciferol (Vitamin D3) (Vitamin D3), 5,000 UNIT GT weekly, (Reported) Diltiazem Hcl* (Cardizem*), Unknown Dose PO QID, (Reported) Docusate Sodium* (Colace*), 100 MG GT DAILY, (Reported) Ferrous Sulfate (Ferrous Sulfate), 220 MG GT BID, (Reported) Hydralazine Hcl* (Hydralazine Hcl*), 100 MG GT BID, (Reported) Insulin Detemir (Levemir Flexpen), 24 SUBQ EVERY 12 HOURS, (Reported) Insulin Regular, Human (Humulin R), 0 SUBQ BEFORE MEALS AND HS, (Reported) Levothyroxine Sodium* (Synthroid*), 50 MCG GT DAILY, (Reported) Linagliptin (Tradjenta), 5 MG GT DAILY, (Reported) Lisinopril* (Lisinopril*), 40 MG GT DAILY, (Reported) Metformin Hcl* (Metformin Hcl*), 500 MG GT THREE TIMES A DAY, (Reported) Metoprolol Succinate* (Metoprolol Succinate*), 100 MG GT BID, (Reported) Multivitamin Liquid* (Multi-Delyn*), 5 ML GT DAILY, (Reported) Na Phos,M-B/Na Phos,Di-Ba* (Fleet Enema*), 133 ML RECTAL PRN, (Reported) Omeprazole (Omeprazole), 20 MG GT DAILY, (Reported) Scheduled PRN Acetaminophen (Tylenol), 325 MG GT Q6H PRN for Prn Pain/Headache/Temp > 101, ( Reported) Acetaminophen* (Tylenol Extra Strength*), 500 MG GT Q6H PRN for Mild Pain/Temp > 100.5, (Reported) Bisacodyl (Dulcolax), 10 MG RC DAILY PRN for Constipation, (Reported) Magnesium Hydroxide* (Milk Of Magnesia*), 30 ML GT BEDTIME PRN for Constipation, (Reported) Miscellaneous Medications Clonidine (Clonidine), 1 EACH TD, (Reported) Patient History Healthcare decision maker ZENA MARR Resuscitation status Full Code Advanced Directive on File No Patient History Narrative PMhx: as above Shx:Resident of a convalescent facility. Fhx: non contributory Review of Systems ROS Narrative unable to obtain Physical Exam Physical Exam Narrative GENERAL: This is a well-developed, somewhat ill-appearing man, lying in bed, awake but confused, non communicative HEENT: Eyes were normal. ENT, mucous membranes were moist and intact. NECK: Supple. No meningeal signs. LUNGS: Clear. HEART: Normal sounds with regular beats. ABDOMEN: Soft and nontender with normal bowel sounds. Gastrostomy site is clean. EXTREMITIES: Warm without cyanosis, clubbing, or edema. MuSCULOSKELETAL EXAMINATION: Remarkable for muscle wasting, deformities in both lower extremities predominantly distally, and flaccid left upper extremity. Peripheral pulses 1+ and symmetric. Last 24 Hour Vital Signs Date Time Temp Pulse Resp B/P (MAP) Pulse Ox O2 Delivery O2 Flow Rate FiO2 05/16/17 09:05 113 167/73 05/16/17 09:05 167/73 05/16/17 09:04 113 167/73 05/16/17 08:00 97.9 113 20 167/73 98 Room Air 05/16/17 06:59 154/81 05/16/17 04:00 98.2 85 18 154/81 97 Room Air 05/16/17 04:00 102 05/16/17 00:20 159/74 05/16/17 00:00 98.2 69 18 159/74 97 Room Air 05/16/17 00:00 69 05/15/17 21:14 80 159/75 05/15/17 20:59 74 18 Room Air 21 05/15/17 20:00 92 05/15/17 20:00 98.3 80 18 159/76 97 Room Air 05/15/17 17:18 151/79 05/15/17 17:18 151/79 05/15/17 16:00 74 05/15/17 16:00 98.1 76 18 151/79 97 Room Air 05/15/17 13:01 162/84 05/15/17 13:01 162/84 05/15/17 12:00 97.5 68 18 162/84 95 Room Air 05/15/17 12:00 67 Laboratory Tests Test 05/16/17 03:50 White Blood Count 8.3 K/UL (4.8-10.8) Red Blood Count 3.85 M/UL (4.70-6.10) L Hemoglobin 11.4 G/DL (14.2-18.0) L Hematocrit 35.4 % (42.0-52.0) L Mean Corpuscular Volume 92 FL (80-99) Mean Corpuscular Hemoglobin 29.7 PG (27.0-31.0) Mean Corpuscular Hemoglobin Concent 32.2 G/DL (32.0-36.0) Red Cell Distribution Width 14.4 % (11.6-14.8) Platelet Count 247 K/UL (150-450) Mean Platelet Volume 7.5 FL (6.5-10.1) Neutrophils (%) (Auto) 72.2 % (45.0-75.0) Lymphocytes (%) (Auto) 16.2 % (20.0-45.0) L Monocytes (%) (Auto) 6.0 % (1.0-10.0) Eosinophils (%) (Auto) 5.0 % (0.0-3.0) H Basophils (%) (Auto) 0.6 % (0.0-2.0) Sodium Level 148 MMOL/L (136-145) H Potassium Level 3.8 MMOL/L (3.5-5.1) Chloride Level 113 MMOL/L (98-107) H Carbon Dioxide Level 29 MMOL/L (21-32) Anion Gap 6 mmol/L (5-15) Blood Urea Nitrogen 47 mg/dL (7-18) H Creatinine 1.5 MG/DL (0.55-1.30) H Estimat Glomerular Filtration Rate 47.1 mL/min (>60) Glucose Level 261 MG/DL (74-106) H Calcium Level 8.2 MG/DL (8.5-10.1) L Height (Feet): 6 Height (Inches): 1.00 Weight (Pounds): 190 Medications Current Medications Medications (Trade) Dose Ordered Sig/Willem Route PRN Reason Start Time Stop Time Status Last Admin Dose Admin Acetaminophen (Tylenol) 650 mg Q4H PRN ORAL T>100.5 F 05/11/17 21:45 06/10/17 21:44 Albuterol/ Ipratropium (Albuterol/ Ipratropium) 3 ml Q4H PRN HHN Shortness of Breath 05/11/17 21:45 05/16/17 21:44 Amlodipine Besylate (Norvasc) 10 mg DAILY GT 05/14/17 11:00 06/13/17 10:59 05/16/17 09:04 Ampicillin Sodium/ Sulbactam Sodium 3 gm/Sodium Chloride 110 ml @ 220 mls/hr Q6HR IVPB 05/12/17 09:00 05/19/17 08:59 05/16/17 07:00 Aspirin (ASA) 81 mg DAILY GT 05/12/17 10:30 06/11/17 10:29 05/16/17 09:05 Clonidine HCl (Catapres) 0.1 mg Q4H PRN ORAL sbp more than 160 05/11/17 21:45 06/10/17 21:44 05/15/17 13:01 Dextrose (Dextrose 50%) STAT PRN IV Hypoglycemia 05/13/17 06:45 06/12/17 06:44 Docusate Sodium (Colace) 100 mg TID GT 05/12/17 13:00 06/11/17 12:59 05/16/17 09:05 Doxazosin Mesylate (Cardura) 2 mg BIAC ORAL 05/16/17 06:30 06/15/17 06:29 05/16/17 06:59 Heparin Sodium (Porcine) (Heparin 5000 units/ml) 5,000 units EVERY 12 HOURS SUBQ 05/12/17 09:00 06/11/17 08:59 05/16/17 09:07 Hydralazine HCl (Apresoline) 50 mg Q6HR ORAL 05/15/17 18:00 06/13/17 13:59 05/16/17 06:59 Insulin Aspart (NovoLOG) EVERY 6 HOURS SUBQ 05/13/17 00:00 06/11/17 06:29 05/16/17 07:01 Insulin Detemir (Levemir) 18 units BID SUBQ 05/14/17 09:00 06/13/17 08:59 05/16/17 09:08 Levothyroxine Sodium (Synthroid) 50 mcg ACBREAKFAST ORAL 05/12/17 06:30 06/11/17 06:29 05/16/17 06:59 Lisinopril (Prinivil) 20 mg BID GT 05/12/17 10:30 06/11/17 10:29 05/16/17 09:05 Metoprolol Tartrate (Lopressor) 100 mg Q12HR GT 05/14/17 09:00 06/13/17 08:59 05/16/17 09:05 Morphine Sulfate (Morphine Sulfate) 2 mg Q4H PRN IVP Severe Pain (Pain Scale 7-10) 05/11/17 21:45 05/18/17 21:44 Nitroglycerin (Ntg) 0.4 mg Q5M X 3 DOSES PRN SL Prn Chest Pain 05/11/17 21:45 06/10/17 21:44 Ondansetron HCl (Zofran) 4 mg Q6H PRN IVP Nausea & Vomiting 05/11/17 21:45 06/10/17 21:44 Polyethylene Glycol (Miralax) 17 gm HSPRN PRN ORAL Constipation 05/11/17 21:45 06/10/17 21:44 Ranitidine HCl (Zantac) 150 mg TWICE A DAY GT 05/12/17 18:00 06/11/17 17:59 05/16/17 09:04 Temazepam (Restoril) 15 mg HSPRN PRN ORAL Insomnia 05/11/17 21:45 05/18/17 21:44 Assessment/Plan Assessment/Plan Abx: Unasyn 05/12- Assesment: AMS- unclear etiology- possibly multifactorial- acute delirium on chronic dementia due to metabolic derangements, vs progressive dementia. No evidence of an active infectious process at present, however r/o infectious related encephalopathies such as HIV, syphilis, chronic fungal meningitis (less likely). -CT head: No evidence of acute intracranial hemorrhage, mass effect or cortical edema. MRI may be obtained for more sensitive evaluation as clinically indicated. Cerebral and cerebellar atrophy greater than expected for age. Clinical correlation recommended. Mild periventricular hypoattenuation suggestive of chronic ischemic microvascular changes. Small area of right frontal encephalomalacia suggestive of old infarct. -UDS neg -TSH normal Lactic acidosis on admission, mild Afebrile, no leukocytosis -CXR no acute process -u/a mild pyuria (WBC 5-10) -Bcx NTD BOOGIE, improving HTN, CKD, DM2, bipolar dz/schizophrenia, GERD, cardiac arrhythmia, Dementia, CAD with prior NH, MS, osteoporosis, asthma, VIt D def, hypothyroidism, HLD, dysphagia s/p GT, R MCA CVA with left hemiplegia, s/p trach Plan: -D/C Unasyn as no evidence of acute bacterial process -Check HIV ag/ab, RPR/TTPA, Cocci ab, CrAg serum -If persistent encephalopathy consider Brain MRI and Lumbar puncture to further evaluate. -f/u cx -Monitor CBC/BMP, temperatuers THank you for this consultation. Will continue to follow along with you. Discussed with Hellen Perez M.D. May 16, 2017 09:37
--- NOTE | 2017-05-16 09:40 | Nephrology Progress Note ---
Assessment/Plan Problem List: (1) Dehydration (2) Hypothyroidism (3) Hypertension (4) ATN (acute tubular necrosis) Assessment Renal: Dehydration and Hypernatremia Renal failure- DM Other: (1) Acute encephalopathy (2) Non-ST elevation (NSTEMI) myocardial infarction (3) Lactic acidosis and UTI (4) Acute hyperglycemia (5) Feeding by G-tube (6) Hypertension Plan Plan; free water Adjust BP meds and Electrolytes- add Norvasc- up the dose of Hydralazine avoid nephrotoxics Per consultants monitor renal parameters Subjective ROS Limited/Unobtainable: No Constitutional: Reports: malaise Objective Objective Last 24 Hour Vital Signs Date Time Temp Pulse Resp B/P (MAP) Pulse Ox O2 Delivery O2 Flow Rate FiO2 05/16/17 09:05 113 167/73 05/16/17 09:05 167/73 05/16/17 09:04 113 167/73 05/16/17 08:00 97.9 113 20 167/73 98 Room Air 05/16/17 06:59 154/81 05/16/17 04:00 98.2 85 18 154/81 97 Room Air 05/16/17 04:00 102 05/16/17 00:20 159/74 05/16/17 00:00 98.2 69 18 159/74 97 Room Air 05/16/17 00:00 69 05/15/17 21:14 80 159/75 05/15/17 20:59 74 18 Room Air 21 05/15/17 20:00 92 05/15/17 20:00 98.3 80 18 159/76 97 Room Air 05/15/17 17:18 151/79 05/15/17 17:18 151/79 05/15/17 16:00 74 05/15/17 16:00 98.1 76 18 151/79 97 Room Air 05/15/17 13:01 162/84 05/15/17 13:01 162/84 05/15/17 12:00 97.5 68 18 162/84 95 Room Air 05/15/17 12:00 67 Laboratory Tests 05/16/17 03:50: White Blood Count 8.3, Red Blood Count 3.85L, Hemoglobin 11.4L, Hematocrit 35.4L , Mean Corpuscular Volume 92, Mean Corpuscular Hemoglobin 29.7, Mean Corpuscular Hemoglobin Concent 32.2, Red Cell Distribution Width 14.4, Platelet Count 247, Mean Platelet Volume 7.5, Neutrophils (%) (Auto) 72.2, Lymphocytes (% ) (Auto) 16.2L, Monocytes (%) (Auto) 6.0, Eosinophils (%) (Auto) 5.0H, Basophils (%) (Auto) 0.6, Sodium Level 148H, Potassium Level 3.8, Chloride Level 113H, Carbon Dioxide Level 29, Anion Gap 6, Blood Urea Nitrogen 47H, Creatinine 1.5H, Estimat Glomerular Filtration Rate 47.1, Glucose Level 261H, Calcium Level 8.2L Height (Feet): 6 Height (Inches): 1.00 Weight (Pounds): 190 General Appearance: no apparent distress Cardiovascular: tachycardia Respiratory/Chest: decreased breath sounds Abdomen: distended Objective no change GARCÍA READ May 16, 2017 09:40
--- NOTE | 2017-05-16 10:51 | Pulmonology Progress Note ---
Assessment/Plan Problems: (1) Acute encephalopathy (2) Non-ST elevation (NSTEMI) myocardial infarction (3) ATN (acute tubular necrosis) (4) Acute hyperglycemia (5) Feeding by G-tube (6) Hypertension Assessment/Plan mental status unchaged no new complains renal function improving renal US reviewed Mental status improving f/u cardio recommendations. awaiting records from other facility Subjective ROS Limited/Unobtainable: No Constitutional: Reports: no symptoms HEENT: Repors: no symptoms Allergies: Coded Allergies: No Known Allergies (Unverified , 05/11/17) Objective Last 24 Hour Vital Signs Date Time Temp Pulse Resp B/P (MAP) Pulse Ox O2 Delivery O2 Flow Rate FiO2 05/16/17 09:05 113 167/73 05/16/17 09:05 167/73 05/16/17 09:04 113 167/73 05/16/17 08:15 71 18 Room Air 21 05/16/17 08:00 97.9 113 20 167/73 98 Room Air 05/16/17 06:59 154/81 05/16/17 04:00 98.2 85 18 154/81 97 Room Air 05/16/17 04:00 102 05/16/17 00:20 159/74 05/16/17 00:00 98.2 69 18 159/74 97 Room Air 05/16/17 00:00 69 05/15/17 21:14 80 159/75 05/15/17 20:59 74 18 Room Air 21 05/15/17 20:00 92 05/15/17 20:00 98.3 80 18 159/76 97 Room Air 05/15/17 17:18 151/79 05/15/17 17:18 151/79 05/15/17 16:00 74 05/15/17 16:00 98.1 76 18 151/79 97 Room Air 05/15/17 13:01 162/84 05/15/17 13:01 162/84 05/15/17 12:00 97.5 68 18 162/84 95 Room Air 05/15/17 12:00 67 General Appearance: WD/WN HEENT: atraumatic Respiratory/Chest: chest wall non-tender, lungs clear Cardiovascular: normal peripheral pulses, normal rate Abdomen: normal bowel sounds, soft, non tender Genitourinary: normal external genitalia Extremities: no clubbing Skin: no lesions, no ulcers Laboratory Tests 05/16/17 03:50: White Blood Count 8.3, Red Blood Count 3.85L, Hemoglobin 11.4L, Hematocrit 35.4L , Mean Corpuscular Volume 92, Mean Corpuscular Hemoglobin 29.7, Mean Corpuscular Hemoglobin Concent 32.2, Red Cell Distribution Width 14.4, Platelet Count 247, Mean Platelet Volume 7.5, Neutrophils (%) (Auto) 72.2, Lymphocytes (% ) (Auto) 16.2L, Monocytes (%) (Auto) 6.0, Eosinophils (%) (Auto) 5.0H, Basophils (%) (Auto) 0.6, Sodium Level 148H, Potassium Level 3.8, Chloride Level 113H, Carbon Dioxide Level 29, Anion Gap 6, Blood Urea Nitrogen 47H, Creatinine 1.5H, Estimat Glomerular Filtration Rate 47.1, Glucose Level 261H, Calcium Level 8.2L Current Medications Medications (Trade) Dose Ordered Sig/Willem Route PRN Reason Start Time Stop Time Status Last Admin Dose Admin Acetaminophen (Tylenol) 650 mg Q4H PRN ORAL T>100.5 F 05/11/17 21:45 06/10/17 21:44 Albuterol/ Ipratropium (Albuterol/ Ipratropium) 3 ml Q4H PRN HHN Shortness of Breath 05/11/17 21:45 05/16/17 21:44 Amlodipine Besylate (Norvasc) 10 mg DAILY GT 05/14/17 11:00 06/13/17 10:59 05/16/17 09:04 Aspirin (ASA) 81 mg DAILY GT 05/12/17 10:30 06/11/17 10:29 05/16/17 09:05 Clonidine HCl (Catapres) 0.1 mg Q4H PRN ORAL sbp more than 160 05/11/17 21:45 06/10/17 21:44 05/15/17 13:01 Dextrose (Dextrose 50%) STAT PRN IV Hypoglycemia 05/13/17 06:45 06/12/17 06:44 Docusate Sodium (Colace) 100 mg TID GT 05/12/17 13:00 06/11/17 12:59 05/16/17 09:05 Doxazosin Mesylate (Cardura) 2 mg BIAC ORAL 05/16/17 06:30 06/15/17 06:29 05/16/17 06:59 Heparin Sodium (Porcine) (Heparin 5000 units/ml) 5,000 units EVERY 12 HOURS SUBQ 05/12/17 09:00 06/11/17 08:59 05/16/17 09:07 Hydralazine HCl (Apresoline) 50 mg Q6HR ORAL 05/15/17 18:00 06/13/17 13:59 05/16/17 06:59 Insulin Aspart (NovoLOG) EVERY 6 HOURS SUBQ 05/13/17 00:00 06/11/17 06:29 05/16/17 07:01 Insulin Detemir (Levemir) 18 units BID SUBQ 05/14/17 09:00 06/13/17 08:59 05/16/17 09:08 Levothyroxine Sodium (Synthroid) 50 mcg ACBREAKFAST ORAL 05/12/17 06:30 06/11/17 06:29 05/16/17 06:59 Lisinopril (Prinivil) 20 mg BID GT 05/12/17 10:30 06/11/17 10:29 05/16/17 09:05 Metoprolol Tartrate (Lopressor) 100 mg Q12HR GT 05/14/17 09:00 06/13/17 08:59 05/16/17 09:05 Morphine Sulfate (Morphine Sulfate) 2 mg Q4H PRN IVP Severe Pain (Pain Scale 7-10) 05/11/17 21:45 05/18/17 21:44 Nitroglycerin (Ntg) 0.4 mg Q5M X 3 DOSES PRN SL Prn Chest Pain 05/11/17 21:45 06/10/17 21:44 Ondansetron HCl (Zofran) 4 mg Q6H PRN IVP Nausea & Vomiting 05/11/17 21:45 06/10/17 21:44 Polyethylene Glycol (Miralax) 17 gm HSPRN PRN ORAL Constipation 05/11/17 21:45 06/10/17 21:44 Ranitidine HCl (Zantac) 150 mg TWICE A DAY GT 05/12/17 18:00 06/11/17 17:59 05/16/17 09:04 Temazepam (Restoril) 15 mg HSPRN PRN ORAL Insomnia 05/11/17 21:45 05/18/17 21:44 JESSE ZAVALA May 16, 2017 10:51
[2017-05-16 14:55] LABS: APPEARANCE,URINE CLEAR; KETONES,URINE NEGATIVE (NEGATIVE); LEUKOCYTE ESTERASE ,URINE 1+ (NEGATIVE); NITRITE,URINE NEGATIVE (NEGATIVE); PH,URINE 7 (4.5-8.0); PROTEIN,URINE 3+ (NEGATIVE); UROBILINOGEN,URINE NORMAL MG/DL (0.0-1.0)
[2017-05-16 15:03] LABS: BACTERIA,URINE OCCASIONAL /HPF; SQUAMOUS EPITHELIAL CELL,UR OCCASIONAL /LPF (NONE/OCC)
[2017-05-16] MEDS ORDERED: D5 1/2NS 1000ml IV ONE (16:11)
--- NOTE | 2017-05-16 19:23 | Cardiology Progress Note ---
Assessment/Plan Assessment/Plan 1. Abnormal electrocardiogram, chronicity of which is unknown. 2. Abnormal cardiac enzymes of questionable significance in light of renal insufficiency. 3. Renal insufficiency. 4. History of hyperlipidemia. 5. Diabetes mellitus. 6. History of hypertension. 7. History of bipolar disorder 8. wide complex tachy non sustained 8. svt trops normla yest echo good lv fucntion bp is elevated at time despite norvasc bb po willgive adition bb iv now old ekg finally obtianed the st segment changes were present previolusly increase po bb off breathign treatment will repat ekg and trop Subjective ROS Limited/Unobtainable: Yes Objective Last 24 Hour Vital Signs Date Time Temp Pulse Resp B/P (MAP) Pulse Ox O2 Delivery O2 Flow Rate FiO2 05/16/17 18:11 153/85 05/16/17 18:11 153/85 05/16/17 16:00 97.9 98 18 153/85 97 Room Air 05/16/17 16:00 96 05/16/17 12:38 169/79 05/16/17 12:00 97.7 88 18 169/79 97 Room Air 05/16/17 12:00 84 05/16/17 09:05 113 167/73 05/16/17 09:05 167/73 05/16/17 09:04 113 167/73 05/16/17 08:15 71 18 Room Air 21 05/16/17 08:00 97.9 113 20 167/73 98 Room Air 05/16/17 08:00 118 05/16/17 06:59 154/81 05/16/17 04:00 98.2 85 18 154/81 97 Room Air 05/16/17 04:00 102 05/16/17 00:20 159/74 05/16/17 00:00 98.2 69 18 159/74 97 Room Air 05/16/17 00:00 69 05/15/17 21:14 80 159/75 05/15/17 20:59 74 18 Room Air 21 05/15/17 20:00 92 05/15/17 20:00 98.3 80 18 159/76 97 Room Air General Appearance: alert Cardiovascular: normal rate, tachycardia Respiratory/Chest: lungs clear, normal breath sounds Abdomen: normal bowel sounds, non tender, soft Extremities: no swelling Intake and Output 05/16/17 05/17/17 19:00 07:00 Intake Total 790 ml Output Total 200 ml Balance 590 ml Free Water 300 ml Tube Feeding 490 ml Output Urine Total 200 ml # Voids 1 Laboratory Tests Test 05/16/17 03:50 05/16/17 14:40 White Blood Count 8.3 K/UL (4.8-10.8) Red Blood Count 3.85 M/UL (4.70-6.10) L Hemoglobin 11.4 G/DL (14.2-18.0) L Hematocrit 35.4 % (42.0-52.0) L Mean Corpuscular Volume 92 FL (80-99) Mean Corpuscular Hemoglobin 29.7 PG (27.0-31.0) Mean Corpuscular Hemoglobin Concent 32.2 G/DL (32.0-36.0) Red Cell Distribution Width 14.4 % (11.6-14.8) Platelet Count 247 K/UL (150-450) Mean Platelet Volume 7.5 FL (6.5-10.1) Neutrophils (%) (Auto) 72.2 % (45.0-75.0) Lymphocytes (%) (Auto) 16.2 % (20.0-45.0) L Monocytes (%) (Auto) 6.0 % (1.0-10.0) Eosinophils (%) (Auto) 5.0 % (0.0-3.0) H Basophils (%) (Auto) 0.6 % (0.0-2.0) Sodium Level 148 MMOL/L (136-145) H Potassium Level 3.8 MMOL/L (3.5-5.1) Chloride Level 113 MMOL/L (98-107) H Carbon Dioxide Level 29 MMOL/L (21-32) Anion Gap 6 mmol/L (5-15) Blood Urea Nitrogen 47 mg/dL (7-18) H Creatinine 1.5 MG/DL (0.55-1.30) H Estimat Glomerular Filtration Rate 47.1 mL/min (>60) Glucose Level 261 MG/DL (74-106) H Calcium Level 8.2 MG/DL (8.5-10.1) L Urine Color Pale yellow Urine Appearance Clear Urine pH 7 (4.5-8.0) Urine Specific [place] 1.010 (1.005-1.035) Urine Protein 3+ (NEGATIVE) H Urine Glucose (UA) 2+ (NEGATIVE) H Urine Ketones Negative (NEGATIVE) Urine Occult Blood 1+ (NEGATIVE) H Urine Nitrite Negative (NEGATIVE) Urine Bilirubin Negative (NEGATIVE) Urine Urobilinogen Normal MG/DL (0.0-1.0) Urine Leukocyte Esterase 1+ (NEGATIVE) H Urine RBC 2-4 /HPF (0 - 0) H Urine WBC 2-4 /HPF (0 - 0) Urine Squamous Epithelial Cells Occasional /LPF Urine Bacteria Occasional /HPF (NONE) FAB CAMPBELL May 16, 2017 19:23
[2017-05-16] MEDS ORDERED: Metoprolol 5mg/5ml Inj IVP SCH (19:30)
[2017-05-16] MEDS ORDERED: Metoprolol 5mg/5ml Inj IVP ONE (19:30)
[2017-05-16] MEDS ORDERED: Metoprolol Tartrate 50mg tab GT SCH (21:00)
[2017-05-17] MEDS ORDERED: Nitroglycerin Subl 0.4mg tab SL PRN (01:45)
[2017-05-17] MEDS ORDERED: Morphine Sulfate 2mg/ml Inj IVP PRN (01:45)
[2017-05-17 04:14] VITALS: BP 175/90
[2017-05-17 06:00] LABS: BASOPHILS % (AUTO) 0.5 % (0.0-2.0); EOSINOPHILS % (AUTO) 5.9 % (0.0-3.0); LYMPHOCYTES % (AUTO) 21.6 % (20.0-45.0); MEAN CORPUSCULAR HGB CONC 31.6 G/DL (32.0-36.0); MEAN CORPUSCULAR VOLUME 92 FL (80-99); MEAN PLATELET VOLUME 7.2 FL (6.5-10.1); MONOCYTES % (AUTO) 6.8 % (1.0-10.0); NEUTROPHILS % (AUTO) 65.2 % (45.0-75.0); PLATELET COUNT 218 K/UL (150-450); RED BLOOD COUNT 3.54 M/UL (4.70-6.10); RED CELL DISTRIBUTION WIDTH 14.9 % (11.6-14.8); WHITE BLOOD COUNT 6.2 K/UL (4.8-10.8)
[2017-05-17] MEDS: HydrALAZINE 50mg tab ORAL SCH ×3 (06:18→17:37)
[2017-05-17] MEDS: Doxazosin 1mg Tab ORAL SCH ×2 (06:18→17:35)
[2017-05-17] MEDS: NovoLOG Insulin Flexpen SUBQ SCH ×3 (06:22→17:40)
[2017-05-17 06:28] LABS: ANION GAP 5 mmol/L (5-15); CALCIUM 8.7 MG/DL (8.5-10.1); CARBON DIOXIDE 29 MMOL/L (21-32); CHLORIDE 115 MMOL/L (98-107); CREATININE 1.6 MG/DL (0.55-1.30); GLOMERULAR FILTRATION RATE 43.7 mL/min (>60); POTASSIUM 3.9 MMOL/L (3.5-5.1); SODIUM 149 MMOL/L (136-145)
[2017-05-17 07:03] LABS: FOLIC ACID 26.9 NG/ML (8.6-58.9)
[2017-05-17 08:00] VITALS: BP 141/86
[2017-05-17] MEDS: Levemir Flexpen SUBQ SCH ×2 (09:00→17:38)
[2017-05-17] MEDS: Docusate 100mg/10ml Liq GT SCH ×3 (09:28→17:36)
[2017-05-17] MEDS: Aspirin Baby 81mg GT SCH (09:28)
[2017-05-17] MEDS: Metoprolol Tartrate 50mg tab GT SCH ×3 (09:30→21:17)
[2017-05-17] MEDS: Lisinopril 20mg tab GT SCH ×2 (09:30→17:36)
[2017-05-17] MEDS: Heparin 5000 units/ml inj SUBQ SCH ×2 (09:33→21:05)
--- NOTE | 2017-05-17 10:07 | Infectious Diseases Prog Note ---
Assessment/Plan Assessment/Plan Abx: Unasyn 05/12-05/16 Assesment: AMS- unclear etiology- possibly multifactorial- acute delirium on chronic dementia due to metabolic derangements, vs progressive dementia. No evidence of an active infectious process at present, however r/o infectious related encephalopathies such as HIV, syphilis, chronic fungal meningitis (less likely). -CT head: No evidence of acute intracranial hemorrhage, mass effect or cortical edema. MRI may be obtained for more sensitive evaluation as clinically indicated. Cerebral and cerebellar atrophy greater than expected for age. Clinical correlation recommended. Mild periventricular hypoattenuation suggestive of chronic ischemic microvascular changes. Small area of right frontal encephalomalacia suggestive of old infarct. -UDS neg -TSH normal -Neg: HIV ag/ab Lactic acidosis on admission, mild- resolved Afebrile, no leukocytosis -CXR no acute process -u/a mild pyuria (WBC 5-10) -Bcx Neg BOOGIE, improving VRE colonized MRSA colonized HTN, CKD, DM2, bipolar dz/schizophrenia, GERD, cardiac arrhythmia, Dementia, CAD with prior CT, MS, osteoporosis, asthma, VIt D def, hypothyroidism, HLD, dysphagia s/p GT, R MCA CVA with left hemiplegia, s/p trach Plan: -Continue to monitor off abx -05/16 SP Unasyn #5 -f/u RPR/TTPA, Cocci ab, CrAg serum -If persistent encephalopathy consider Brain MRI and Lumbar puncture to further evaluate. -Monitor CBC/BMP, temperatuers THank you for this consultation. Will continue to follow along with you. Discussed with RN. Subjective Allergies: Coded Allergies: No Known Allergies (Unverified , 05/11/17) Subjective afebrile no leukocytosis off abx Bcx neg Objective Vital Signs Last 24 Hour Vital Signs Date Time Temp Pulse Resp B/P (MAP) Pulse Ox O2 Delivery O2 Flow Rate FiO2 05/17/17 09:30 102 141/86 05/17/17 09:30 141/86 05/17/17 09:30 102 141/86 05/17/17 08:00 97.5 102 21 141/86 98 Room Air 05/17/17 06:18 175/90 05/17/17 04:14 97.9 78 21 175/90 97 Room Air 05/17/17 04:00 175/90 05/17/17 04:00 78 05/17/17 00:00 65 05/16/17 23:54 97.9 66 18 139/71 97 Room Air 05/16/17 23:51 139/71 05/16/17 22:10 127 154/75 05/16/17 20:00 127 05/16/17 19:56 97.9 103 18 154/75 97 Room Air 05/16/17 19:47 78 18 Room Air 05/16/17 19:38 118 140/72 05/16/17 18:11 153/85 05/16/17 18:11 153/85 05/16/17 16:00 97.9 98 18 153/85 97 Room Air 05/16/17 16:00 96 05/16/17 12:38 169/79 05/16/17 12:00 97.7 88 18 169/79 97 Room Air 05/16/17 12:00 84 Height (Feet): 6 Height (Inches): 1.00 Weight (Pounds): 190 Objective GENERAL: This is a well-developed, somewhat ill-appearing man, lying in bed, awake but confused, non communicative HEENT: Eyes were normal. ENT, mucous membranes were moist and intact. NECK: Supple. No meningeal signs. LUNGS: Clear. HEART: Normal sounds with regular beats. ABDOMEN: Soft and nontender with normal bowel sounds. Gastrostomy site is clean. EXTREMITIES: Warm without cyanosis, clubbing, or edema. MuSCULOSKELETAL EXAMINATION: Remarkable for muscle wasting, deformities in both lower extremities predominantly distally, and flaccid left upper extremity. Peripheral pulses 1+ and symmetric. Laboratory Tests Test 05/16/17 14:40 05/17/17 05:30 Urine Color Pale yellow Urine Appearance Clear Urine pH 7 (4.5-8.0) Urine Specific [place] 1.010 (1.005-1.035) Urine Protein 3+ (NEGATIVE) H Urine Glucose (UA) 2+ (NEGATIVE) H Urine Ketones Negative (NEGATIVE) Urine Occult Blood 1+ (NEGATIVE) H Urine Nitrite Negative (NEGATIVE) Urine Bilirubin Negative (NEGATIVE) Urine Urobilinogen Normal MG/DL (0.0-1.0) Urine Leukocyte Esterase 1+ (NEGATIVE) H Urine RBC 2-4 /HPF (0 - 0) H Urine WBC 2-4 /HPF (0 - 0) Urine Squamous Epithelial Cells Occasional /LPF Urine Bacteria Occasional /HPF (NONE) White Blood Count 6.2 K/UL (4.8-10.8) Red Blood Count 3.54 M/UL (4.70-6.10) L Hemoglobin 10.3 G/DL (14.2-18.0) L Hematocrit 32.5 % (42.0-52.0) L Mean Corpuscular Volume 92 FL (80-99) Mean Corpuscular Hemoglobin 29.0 PG (27.0-31.0) Mean Corpuscular Hemoglobin Concent 31.6 G/DL (32.0-36.0) L Red Cell Distribution Width 14.9 % (11.6-14.8) H Platelet Count 218 K/UL (150-450) Mean Platelet Volume 7.2 FL (6.5-10.1) Neutrophils (%) (Auto) 65.2 % (45.0-75.0) Lymphocytes (%) (Auto) 21.6 % (20.0-45.0) Monocytes (%) (Auto) 6.8 % (1.0-10.0) Eosinophils (%) (Auto) 5.9 % (0.0-3.0) H Basophils (%) (Auto) 0.5 % (0.0-2.0) Sodium Level 149 MMOL/L (136-145) H Potassium Level 3.9 MMOL/L (3.5-5.1) Chloride Level 115 MMOL/L (98-107) H Carbon Dioxide Level 29 MMOL/L (21-32) Anion Gap 5 mmol/L (5-15) Blood Urea Nitrogen 48 mg/dL (7-18) H Creatinine 1.6 MG/DL (0.55-1.30) H Estimat Glomerular Filtration Rate 43.7 mL/min (>60) Glucose Level 288 MG/DL (74-106) H Lactic Acid Level 0.90 mmol/L (0.66-2.22) Calcium Level 8.7 MG/DL (8.5-10.1) Troponin I 0.057 ng/mL (0.000-0.056) Vitamin B12 Level 812 PG/ML (193-986) Folate 26.9 NG/ML (8.6-58.9) Rapid Plasma Reagin Pending Treponema pallidum Ab (FTA-ABS) Pending Coccidioides Antibody (Comp Fix) Pending Cryptococcus Antigen Pending HIV (1&2) Antibody Rapid Negative (NEGATIVE) Current Medications Medications (Trade) Dose Ordered Sig/Willem Route PRN Reason Start Time Stop Time Status Last Admin Dose Admin Acetaminophen (Tylenol) 650 mg Q4H PRN ORAL T>100.5 F 05/17/17 01:45 06/10/17 21:44 Amlodipine Besylate (Norvasc) 10 mg DAILY GT 05/17/17 09:00 06/13/17 10:59 05/17/17 09:30 Aspirin (ASA) 81 mg DAILY GT 05/17/17 09:00 06/11/17 10:29 05/17/17 09:28 Clonidine HCl (Catapres) 0.1 mg Q4H PRN ORAL sbp more than 160 05/17/17 01:45 06/10/17 21:44 05/17/17 04:00 Dextrose (Dextrose 50%) STAT PRN IV Hypoglycemia 05/17/17 06:45 06/12/17 06:44 Docusate Sodium (Colace) 100 mg TID GT 05/17/17 09:00 06/11/17 12:59 05/17/17 09:28 Doxazosin Mesylate (Cardura) 2 mg BIAC ORAL 05/17/17 06:30 06/15/17 06:29 05/17/17 06:18 Heparin Sodium (Porcine) (Heparin 5000 units/ml) 5,000 units EVERY 12 HOURS SUBQ 05/17/17 09:00 06/11/17 08:59 05/17/17 09:33 Hydralazine HCl (Apresoline) 50 mg Q6HR ORAL 05/17/17 06:00 06/13/17 13:59 05/17/17 06:18 Insulin Aspart (NovoLOG) EVERY 6 HOURS SUBQ 05/17/17 06:00 06/11/17 06:29 05/17/17 06:22 Insulin Detemir (Levemir) 18 units BID SUBQ 05/17/17 09:00 06/13/17 08:59 05/17/17 09:00 Levothyroxine Sodium (Synthroid) 50 mcg ACBREAKFAST ORAL 05/17/17 06:30 06/11/17 06:29 05/17/17 06:18 Lisinopril (Prinivil) 20 mg BID GT 05/17/17 09:00 06/11/17 10:29 05/17/17 09:30 Metoprolol Tartrate (Lopressor) 125 mg Q12HR GT 05/17/17 09:00 06/15/17 20:59 05/17/17 09:30 Morphine Sulfate (Morphine Sulfate) 2 mg Q4H PRN IVP Severe Pain (Pain Scale 7-10) 05/17/17 01:45 05/18/17 21:44 Nitroglycerin (Ntg) 0.4 mg Q5M X 3 DOSES PRN SL Prn Chest Pain 05/17/17 01:45 06/10/17 21:44 Ondansetron HCl (Zofran) 4 mg Q6H PRN IVP Nausea & Vomiting 05/17/17 03:45 06/10/17 21:44 Polyethylene Glycol (Miralax) 17 gm HSPRN PRN ORAL Constipation 05/17/17 21:45 06/10/17 21:44 Ranitidine HCl (Zantac) 150 mg TWICE A DAY GT 05/17/17 09:00 06/11/17 17:59 05/17/17 09:31 Temazepam (Restoril) 15 mg HSPRN PRN ORAL Insomnia 05/17/17 21:45 05/18/17 21:44 Hellen Hutchison M.D. May 17, 2017 10:07
[2017-05-17] MEDS ORDERED: LORazepam 1mg tab SL ONE (10:15)
--- NOTE | 2017-05-17 11:30 | Nephrology Progress Note ---
Assessment/Plan Problem List: (1) Dehydration (2) Hypothyroidism (3) Hypertension (4) ATN (acute tubular necrosis) Assessment Renal: Dehydration and Hypernatremia Renal failure- DM elevated troponin Other: (1) Acute encephalopathy (2) Non-ST elevation (NSTEMI) myocardial infarction (3) Lactic acidosis and UTI (4) Acute hyperglycemia (5) Feeding by G-tube (6) Hypertension Plan Plan; D5W 500 cc add isordil free water Adjust BP meds avoid nephrotoxics Per consultants monitor renal parameters ? DC planning Subjective ROS Limited/Unobtainable: No Constitutional: Reports: weakness Objective Objective Last 24 Hour Vital Signs Date Time Temp Pulse Resp B/P (MAP) Pulse Ox O2 Delivery O2 Flow Rate FiO2 05/17/17 09:30 102 141/86 05/17/17 09:30 141/86 05/17/17 09:30 102 141/86 05/17/17 08:00 97.5 102 21 141/86 98 Room Air 05/17/17 06:18 175/90 05/17/17 04:14 97.9 78 21 175/90 97 Room Air 05/17/17 04:00 175/90 05/17/17 04:00 78 05/17/17 00:00 65 05/16/17 23:54 97.9 66 18 139/71 97 Room Air 05/16/17 23:51 139/71 05/16/17 22:10 127 154/75 05/16/17 20:00 127 05/16/17 19:56 97.9 103 18 154/75 97 Room Air 05/16/17 19:47 78 18 Room Air 05/16/17 19:38 118 140/72 05/16/17 18:11 153/85 05/16/17 18:11 153/85 05/16/17 16:00 97.9 98 18 153/85 97 Room Air 05/16/17 16:00 96 05/16/17 12:38 169/79 05/16/17 12:00 97.7 88 18 169/79 97 Room Air 05/16/17 12:00 84 Laboratory Tests 05/16/17 14:40: Urine Color Pale yellow, Urine Appearance Clear, Urine pH 7, Urine Specific [place] 1.010, Urine Protein 3+H, Urine Glucose (UA) 2+H, Urine Ketones Negative , Urine Occult Blood 1+H, Urine Nitrite Negative, Urine Bilirubin Negative, Urine Urobilinogen Normal, Urine Leukocyte Esterase 1+H, Urine RBC 2-4H, Urine WBC 2-4, Urine Squamous Epithelial Cells Occasional, Urine Bacteria Occasional 05/17/17 05:30: White Blood Count 6.2, Red Blood Count 3.54L, Hemoglobin 10.3L, Hematocrit 32.5L , Mean Corpuscular Volume 92, Mean Corpuscular Hemoglobin 29.0, Mean Corpuscular Hemoglobin Concent 31.6L, Red Cell Distribution Width 14.9H, Platelet Count 218, Mean Platelet Volume 7.2, Neutrophils (%) (Auto) 65.2, Lymphocytes (%) (Auto) 21.6, Monocytes (%) (Auto) 6.8, Eosinophils (%) (Auto) 5.9H, Basophils (%) (Auto) 0.5, Sodium Level 149H, Potassium Level 3.9, Chloride Level 115H, Carbon Dioxide Level 29, Anion Gap 5, Blood Urea Nitrogen 48H, Creatinine 1.6H, Estimat Glomerular Filtration Rate 43.7, Glucose Level 288H, Lactic Acid Level 0.90, Calcium Level 8.7, Troponin I 0.057H, Vitamin B12 Level 812, Folate 26.9, Rapid Plasma Reagin [Pending], Treponema pallidum Ab ( FTA-ABS) [Pending], Coccidioides Antibody (Comp Fix) [Pending], Cryptococcus Antigen [Pending], HIV (1&2) Antibody Rapid Negative Height (Feet): 6 Height (Inches): 1.00 Weight (Pounds): 190 General Appearance: no apparent distress Objective no change GARCÍA READ May 17, 2017 11:30
--- NOTE | 2017-05-17 12:06 | Pulmonology Progress Note ---
Assessment/Plan Problems: (1) V-tach (2) Acute encephalopathy (3) Non-ST elevation (NSTEMI) myocardial infarction (4) ATN (acute tubular necrosis) (5) Acute hyperglycemia (6) Feeding by G-tube (7) Hypertension Assessment/Plan troponin positive again mental status unchaged no new complains renal function improving renal US reviewed Mental status improving f/u cardio recommendations. Subjective ROS Limited/Unobtainable: No Interval Events: somnolent Allergies: Coded Allergies: No Known Allergies (Unverified , 05/11/17) Objective Last 24 Hour Vital Signs Date Time Temp Pulse Resp B/P (MAP) Pulse Ox O2 Delivery O2 Flow Rate FiO2 05/17/17 09:30 102 141/86 05/17/17 09:30 141/86 05/17/17 09:30 102 141/86 05/17/17 08:00 97.5 102 21 141/86 98 Room Air 05/17/17 06:18 175/90 05/17/17 04:14 97.9 78 21 175/90 97 Room Air 05/17/17 04:00 175/90 05/17/17 04:00 78 05/17/17 00:00 65 05/16/17 23:54 97.9 66 18 139/71 97 Room Air 05/16/17 23:51 139/71 05/16/17 22:10 127 154/75 05/16/17 20:00 127 05/16/17 19:56 97.9 103 18 154/75 97 Room Air 05/16/17 19:47 78 18 Room Air 05/16/17 19:38 118 140/72 05/16/17 18:11 153/85 05/16/17 18:11 153/85 05/16/17 16:00 97.9 98 18 153/85 97 Room Air 05/16/17 16:00 96 05/16/17 12:38 169/79 General Appearance: WD/WN HEENT: normocephalic, atraumatic, anicteric Respiratory/Chest: chest wall non-tender, lungs clear Cardiovascular: normal peripheral pulses, normal rate Abdomen: normal bowel sounds, no organomegaly Genitourinary: normal external genitalia Skin: no lesions 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, no motor/sensory deficits Laboratory Tests 05/16/17 14:40: Urine Color Pale yellow, Urine Appearance Clear, Urine pH 7, Urine Specific [place] 1.010, Urine Protein 3+H, Urine Glucose (UA) 2+H, Urine Ketones Negative , Urine Occult Blood 1+H, Urine Nitrite Negative, Urine Bilirubin Negative, Urine Urobilinogen Normal, Urine Leukocyte Esterase 1+H, Urine RBC 2-4H, Urine WBC 2-4, Urine Squamous Epithelial Cells Occasional, Urine Bacteria Occasional 05/17/17 05:30: White Blood Count 6.2, Red Blood Count 3.54L, Hemoglobin 10.3L, Hematocrit 32.5L , Mean Corpuscular Volume 92, Mean Corpuscular Hemoglobin 29.0, Mean Corpuscular Hemoglobin Concent 31.6L, Red Cell Distribution Width 14.9H, Platelet Count 218, Mean Platelet Volume 7.2, Neutrophils (%) (Auto) 65.2, Lymphocytes (%) (Auto) 21.6, Monocytes (%) (Auto) 6.8, Eosinophils (%) (Auto) 5.9H, Basophils (%) (Auto) 0.5, Sodium Level 149H, Potassium Level 3.9, Chloride Level 115H, Carbon Dioxide Level 29, Anion Gap 5, Blood Urea Nitrogen 48H, Creatinine 1.6H, Estimat Glomerular Filtration Rate 43.7, Glucose Level 288H, Lactic Acid Level 0.90, Calcium Level 8.7, Troponin I 0.057H, Vitamin B12 Level 812, Folate 26.9, Rapid Plasma Reagin [Pending], Treponema pallidum Ab ( FTA-ABS) [Pending], Coccidioides Antibody (Comp Fix) [Pending], Cryptococcus Antigen [Pending], HIV (1&2) Antibody Rapid Negative Current Medications Medications (Trade) Dose Ordered Sig/Willem Route PRN Reason Start Time Stop Time Status Last Admin Dose Admin Acetaminophen (Tylenol) 650 mg Q4H PRN ORAL T>100.5 F 05/17/17 01:45 06/10/17 21:44 Amlodipine Besylate (Norvasc) 10 mg DAILY GT 05/17/17 09:00 06/13/17 10:59 05/17/17 09:30 Aspirin (ASA) 81 mg DAILY GT 05/17/17 09:00 06/11/17 10:29 05/17/17 09:28 Clonidine HCl (Catapres) 0.1 mg Q4H PRN ORAL sbp more than 160 05/17/17 01:45 06/10/17 21:44 05/17/17 04:00 Dextrose 500 ml @ 500 mls/hr ONCE ONCE IV 05/17/17 11:30 05/17/17 12:29 Dextrose (Dextrose 50%) STAT PRN IV Hypoglycemia 05/17/17 06:45 06/12/17 06:44 Docusate Sodium (Colace) 100 mg TID GT 05/17/17 09:00 06/11/17 12:59 05/17/17 09:28 Doxazosin Mesylate (Cardura) 2 mg BIAC ORAL 05/17/17 06:30 06/15/17 06:29 05/17/17 06:18 Heparin Sodium (Porcine) (Heparin 5000 units/ml) 5,000 units EVERY 12 HOURS SUBQ 05/17/17 09:00 06/11/17 08:59 05/17/17 09:33 Hydralazine HCl (Apresoline) 50 mg Q6HR ORAL 05/17/17 06:00 06/13/17 13:59 05/17/17 06:18 Insulin Aspart (NovoLOG) EVERY 6 HOURS SUBQ 05/17/17 06:00 06/11/17 06:29 05/17/17 06:22 Insulin Detemir (Levemir) 18 units BID SUBQ 05/17/17 09:00 06/13/17 08:59 05/17/17 09:00 Isosorbide Dinitrate (Isordil) 10 mg Q6HR GT 05/17/17 12:00 06/16/17 11:59 Levothyroxine Sodium (Synthroid) 50 mcg ACBREAKFAST ORAL 05/17/17 06:30 06/11/17 06:29 05/17/17 06:18 Lisinopril (Prinivil) 20 mg BID GT 05/17/17 09:00 06/11/17 10:29 05/17/17 09:30 Metoprolol Tartrate (Lopressor) 125 mg Q12HR GT 05/17/17 09:00 06/15/17 20:59 05/17/17 09:30 Morphine Sulfate (Morphine Sulfate) 2 mg Q4H PRN IVP Severe Pain (Pain Scale 7-10) 05/17/17 01:45 05/18/17 21:44 Nitroglycerin (Ntg) 0.4 mg Q5M X 3 DOSES PRN SL Prn Chest Pain 05/17/17 01:45 06/10/17 21:44 Ondansetron HCl (Zofran) 4 mg Q6H PRN IVP Nausea & Vomiting 05/17/17 03:45 06/10/17 21:44 Polyethylene Glycol (Miralax) 17 gm HSPRN PRN ORAL Constipation 05/17/17 21:45 06/10/17 21:44 Ranitidine HCl (Zantac) 150 mg TWICE A DAY GT 05/17/17 09:00 06/11/17 17:59 05/17/17 09:31 Temazepam (Restoril) 15 mg HSPRN PRN ORAL Insomnia 05/17/17 21:45 05/18/17 21:44 JESSE ZAVALA May 17, 2017 12:06
--- NOTE | 2017-05-17 14:02 | Diagnostic Imaging Report ---
Indication: Altered mental status, right-sided hemiparesis, syncope, bipolar depression Technique: sagittal T1 fast spin echo, axial T1 FLAIR, axial T2 FLAIR, axial T2 FS PROPELLER, axial T2* GRE, axial diffusion weighted images. ADC and exponential ADC maps generated Comparison: Reference made to brain CT dated 05/11/2017 Findings: No abnormal areas of restricted diffusion to suggest acute infarction. No acute hemorrhage or edema. No mass effect nor midline shift. There is age-related enlargement of the ventricles and extra axial CSF spaces. There is a focus of encephalomalacia in the high right frontal lobe. There is minimal periventricular deep white matter T2 signal demonstrated. Small old lacunar infarcts are seen in the basal ganglia bilaterally.. Visualized orbits and sinuses are unremarkable. Impression: Chronic and age-related changes. Old right frontal infarct Negative for acute intracranial bleed, mass effect, or acute infarct
[2017-05-17 16:00] VITALS: BP 116/63
[2017-05-17] MEDS ORDERED: Metoprolol 5mg/5ml Inj IVP SCH (19:30)
--- NOTE | 2017-05-17 19:59 | Cardiology Progress Note ---
Assessment/Plan Assessment/Plan 1. Abnormal electrocardiogram, chronicity of which is unknown. 2. Abnormal cardiac enzymes of questionable significance in light of renal insufficiency. 3. Renal insufficiency. 4. History of hyperlipidemia. 5. Diabetes mellitus. 6. History of hypertension. 7. History of bipolar disorder 8. wide complex tachy non sustained 8. svt trops min abn agian at the same exact level as priror dates echo good lv fucntion bp is elevated at time despite norvasc on higer dose of bb heart rate better amalia reviwsed d/w rn old ekg finally obtianed the st segment changes were present previously increase po bb Subjective ROS Limited/Unobtainable: Yes Objective Last 24 Hour Vital Signs Date Time Temp Pulse Resp B/P (MAP) Pulse Ox O2 Delivery O2 Flow Rate FiO2 05/17/17 19:31 100 20 Room Air 05/17/17 17:37 116/63 05/17/17 17:36 116/63 05/17/17 17:36 116/63 05/17/17 16:00 97.5 66 21 116/63 97 05/17/17 13:20 141/86 05/17/17 13:19 141/86 05/17/17 09:30 102 141/86 05/17/17 09:30 141/86 05/17/17 09:30 102 141/86 05/17/17 08:00 97.5 102 21 141/86 98 Room Air 05/17/17 08:00 97 05/17/17 06:18 175/90 05/17/17 04:14 97.9 78 21 175/90 97 Room Air 05/17/17 04:00 175/90 05/17/17 04:00 78 05/17/17 00:00 65 05/16/17 23:54 97.9 66 18 139/71 97 Room Air 05/16/17 23:51 139/71 05/16/17 22:10 127 154/75 05/16/17 20:00 127 General Appearance: no apparent distress Cardiovascular: normal rate Respiratory/Chest: lungs clear Abdomen: normal bowel sounds, non tender, soft Extremities: no swelling Intake and Output 05/17/17 05/18/17 19:00 07:00 # Voids 3 # Bowel Movements 3 Laboratory Tests Test 05/17/17 05:30 White Blood Count 6.2 K/UL (4.8-10.8) Red Blood Count 3.54 M/UL (4.70-6.10) L Hemoglobin 10.3 G/DL (14.2-18.0) L Hematocrit 32.5 % (42.0-52.0) L Mean Corpuscular Volume 92 FL (80-99) Mean Corpuscular Hemoglobin 29.0 PG (27.0-31.0) Mean Corpuscular Hemoglobin Concent 31.6 G/DL (32.0-36.0) L Red Cell Distribution Width 14.9 % (11.6-14.8) H Platelet Count 218 K/UL (150-450) Mean Platelet Volume 7.2 FL (6.5-10.1) Neutrophils (%) (Auto) 65.2 % (45.0-75.0) Lymphocytes (%) (Auto) 21.6 % (20.0-45.0) Monocytes (%) (Auto) 6.8 % (1.0-10.0) Eosinophils (%) (Auto) 5.9 % (0.0-3.0) H Basophils (%) (Auto) 0.5 % (0.0-2.0) Sodium Level 149 MMOL/L (136-145) H Potassium Level 3.9 MMOL/L (3.5-5.1) Chloride Level 115 MMOL/L (98-107) H Carbon Dioxide Level 29 MMOL/L (21-32) Anion Gap 5 mmol/L (5-15) Blood Urea Nitrogen 48 mg/dL (7-18) H Creatinine 1.6 MG/DL (0.55-1.30) H Estimat Glomerular Filtration Rate 43.7 mL/min (>60) Glucose Level 288 MG/DL (74-106) H Lactic Acid Level 0.90 mmol/L (0.66-2.22) Calcium Level 8.7 MG/DL (8.5-10.1) Troponin I 0.057 ng/mL (0.000-0.056) Vitamin B12 Level 812 PG/ML (193-986) Folate 26.9 NG/ML (8.6-58.9) Rapid Plasma Reagin Pending Treponema pallidum Ab (FTA-ABS) Pending Coccidioides Antibody (Comp Fix) Pending Cryptococcus Antigen Pending HIV (1&2) Antibody Rapid Negative (NEGATIVE) FAB CAMPBELL May 17, 2017 19:59
[2017-05-17 20:00] VITALS: BP 112/59
[2017-05-17] MEDS ORDERED: Miralax 17gm pkt ORAL PRN (21:45)
[2017-05-18] VITALS: BP 130/67
[2017-05-18] MEDS: HydrALAZINE 50mg tab ORAL SCH ×3 (00:39→12:56)
[2017-05-18] MEDS: NovoLOG Insulin Flexpen SUBQ SCH ×3 (00:43→12:58)
[2017-05-18 04:00] VITALS: BP 140/75
[2017-05-18 06:59] LABS: BASOPHILS % (AUTO) 0.8 % (0.0-2.0); EOSINOPHILS % (AUTO) 7.5 % (0.0-3.0); LYMPHOCYTES % (AUTO) 22.6 % (20.0-45.0); MEAN CORPUSCULAR HEMOGLOBIN 29.6 PG (27.0-31.0); MEAN CORPUSCULAR VOLUME 93 FL (80-99); MEAN PLATELET VOLUME 7.7 FL (6.5-10.1); MONOCYTES % (AUTO) 6.2 % (1.0-10.0); PLATELET COUNT 213 K/UL (150-450); RED BLOOD COUNT 3.41 M/UL (4.70-6.10); RED CELL DISTRIBUTION WIDTH 14.6 % (11.6-14.8); WHITE BLOOD COUNT 7.6 K/UL (4.8-10.8)
[2017-05-18] MEDS: Doxazosin 1mg Tab ORAL SCH (07:20)
[2017-05-18 07:26] LABS: ALBUMIN/GLOBULIN RATIO 0.8 (1.0-2.7); ANION GAP 7 mmol/L (5-15); ASPARTATE AMINO TRANSFERASE 31 U/L (15-37); CALCIUM 8.7 MG/DL (8.5-10.1); CARBON DIOXIDE 29 MMOL/L (21-32); CHLORIDE 113 MMOL/L (98-107); CREATININE 1.7 MG/DL (0.55-1.30); GLOMERULAR FILTRATION RATE 40.8 mL/min (>60); MAGNESIUM 2.4 MG/DL (1.8-2.4); PHOSPHORUS 3.7 MG/DL (2.5-4.9); POTASSIUM 3.8 MMOL/L (3.5-5.1); SODIUM 149 MMOL/L (136-145); TOTAL PROTEIN 5.9 G/DL (6.4-8.2)
[2017-05-18 08:00] VITALS: BP 142/87
[2017-05-18 08:01] LABS: ALANINE AMINOTRANSFERASE 64 U/L (12-78)
[2017-05-18] MEDS: Levemir Flexpen SUBQ SCH (09:00)
[2017-05-18] MEDS: Metoprolol Tartrate 50mg tab GT SCH (09:31)
[2017-05-18] MEDS: Lisinopril 20mg tab GT SCH (09:31)
[2017-05-18] MEDS: Aspirin Baby 81mg GT SCH (09:32)
[2017-05-18] MEDS: Docusate 100mg/10ml Liq GT SCH ×2 (09:33→12:56)
[2017-05-18] MEDS: Heparin 5000 units/ml inj SUBQ SCH (09:43)
--- NOTE | 2017-05-18 11:19 | Infectious Diseases Prog Note ---
Assessment/Plan Assessment/Plan Abx: Unasyn 05/12-05/16 Assesment: AMS- unclear etiology- possibly multifactorial- acute delirium on chronic dementia due to metabolic derangements, vs progressive dementia. No evidence of an active infectious process at present, however r/o infectious related encephalopathies such as HIV, syphilis, chronic fungal meningitis (less likely) . No concerning findings no MRI. -CT head: No evidence of acute intracranial hemorrhage, mass effect or cortical edema. MRI may be obtained for more sensitive evaluation as clinically indicated. Cerebral and cerebellar atrophy greater than expected for age. Clinical correlation recommended. Mild periventricular hypoattenuation suggestive of chronic ischemic microvascular changes. Small area of right frontal encephalomalacia suggestive of old infarct. -UDS neg -TSH normal -Neg: HIV ag/ab -Brain MRI: Chronic and age-related changes. Old right frontal infarct. Negative for acute intracranial bleed, mass effect, or acute infarct Lactic acidosis on admission, mild- resolved Afebrile, no leukocytosis -CXR no acute process -u/a mild pyuria (WBC 5-10) -Bcx Neg BOOGIE, improving VRE colonized MRSA colonized HTN, CKD, DM2, bipolar dz/schizophrenia, GERD, cardiac arrhythmia, Dementia, CAD with prior [place], MS, osteoporosis, asthma, VIt D def, hypothyroidism, HLD, dysphagia s/p GT, R MCA CVA with left hemiplegia, s/p trach Plan: -Continue to monitor off abx -05/16 SP Unasyn #5 -f/u RPR/TTPA, Cocci ab, CrAg serum -If persistent encephalopathy consider Lumbar puncture to further evaluate. -Monitor CBC/BMP, temperatuers THank you for this consultation. Will continue to follow along with you. Discussed with RN. Subjective Allergies: Coded Allergies: No Known Allergies (Unverified , 05/11/17) Subjective afebrile no leukocytosis off abx Objective Vital Signs Last 24 Hour Vital Signs Date Time Temp Pulse Resp B/P (MAP) Pulse Ox O2 Delivery O2 Flow Rate FiO2 05/18/17 09:32 87 142/87 05/18/17 09:31 87 142/87 05/18/17 09:31 142/87 05/18/17 08:00 97.9 87 21 142/87 96 Room Air 05/18/17 07:25 98 20 Room Air 05/18/17 07:21 140/75 05/18/17 07:20 140/75 05/18/17 04:00 82 05/18/17 04:00 97.7 82 20 140/75 100 Room Air 21 05/18/17 00:39 130/76 05/18/17 00:38 130/76 05/18/17 00:00 75 05/18/17 00:00 97.7 75 18 130/67 97 05/17/17 21:17 106 135/79 05/17/17 20:00 118 05/17/17 20:00 97.9 93 18 112/59 95 05/17/17 19:31 100 20 Room Air 05/17/17 17:37 116/63 05/17/17 17:36 116/63 05/17/17 17:36 116/63 05/17/17 16:00 97.5 66 21 116/63 97 05/17/17 16:00 118 05/17/17 13:20 141/86 05/17/17 13:19 141/86 05/17/17 12:00 97 Height (Feet): 6 Height (Inches): 1.00 Weight (Pounds): 190 Objective GENERAL: This is a well-developed, somewhat ill-appearing man, lying in bed, awake but confused, non communicative HEENT: Eyes were normal. ENT, mucous membranes were moist and intact. NECK: Supple. No meningeal signs. LUNGS: Clear. HEART: Normal sounds with regular beats. ABDOMEN: Soft and nontender with normal bowel sounds. Gastrostomy site is clean. EXTREMITIES: Warm without cyanosis, clubbing, or edema. MuSCULOSKELETAL EXAMINATION: Remarkable for muscle wasting, deformities in both lower extremities predominantly distally, and flaccid left upper extremity. Peripheral pulses 1+ and symmetric. Laboratory Tests Test 05/18/17 06:20 White Blood Count 7.6 K/UL (4.8-10.8) Red Blood Count 3.41 M/UL (4.70-6.10) L Hemoglobin 10.1 G/DL (14.2-18.0) L Hematocrit 31.5 % (42.0-52.0) L Mean Corpuscular Volume 93 FL (80-99) Mean Corpuscular Hemoglobin 29.6 PG (27.0-31.0) Mean Corpuscular Hemoglobin Concent 32.0 G/DL (32.0-36.0) Red Cell Distribution Width 14.6 % (11.6-14.8) Platelet Count 213 K/UL (150-450) Mean Platelet Volume 7.7 FL (6.5-10.1) Neutrophils (%) (Auto) 63.0 % (45.0-75.0) Lymphocytes (%) (Auto) 22.6 % (20.0-45.0) Monocytes (%) (Auto) 6.2 % (1.0-10.0) Eosinophils (%) (Auto) 7.5 % (0.0-3.0) H Basophils (%) (Auto) 0.8 % (0.0-2.0) Sodium Level 149 MMOL/L (136-145) H Potassium Level 3.8 MMOL/L (3.5-5.1) Chloride Level 113 MMOL/L (98-107) H Carbon Dioxide Level 29 MMOL/L (21-32) Anion Gap 7 mmol/L (5-15) Blood Urea Nitrogen 53 mg/dL (7-18) H Creatinine 1.7 MG/DL (0.55-1.30) H Estimat Glomerular Filtration Rate 40.8 mL/min (>60) Glucose Level 271 MG/DL (74-106) H Calcium Level 8.7 MG/DL (8.5-10.1) Phosphorus Level 3.7 MG/DL (2.5-4.9) Magnesium Level 2.4 MG/DL (1.8-2.4) Total Bilirubin 0.2 MG/DL (0.2-1.0) Aspartate Amino Transf (AST/SGOT) 31 U/L (15-37) Alanine Aminotransferase (ALT/SGPT) 64 U/L (12-78) Alkaline Phosphatase 95 U/L (46-116) Troponin I 0.074 ng/mL (0.000-0.056) Total Protein 5.9 G/DL (6.4-8.2) L Albumin 2.6 G/DL (3.4-5.0) L Globulin 3.3 g/dL Albumin/Globulin Ratio 0.8 (1.0-2.7) L Current Medications Medications (Trade) Dose Ordered Sig/Willem Route PRN Reason Start Time Stop Time Status Last Admin Dose Admin Acetaminophen (Tylenol) 650 mg Q4H PRN ORAL T>100.5 F 05/17/17 01:45 06/10/17 21:44 Amlodipine Besylate (Norvasc) 10 mg DAILY GT 05/17/17 09:00 06/13/17 10:59 05/18/17 09:32 Aspirin (ASA) 81 mg DAILY GT 05/17/17 09:00 06/11/17 10:29 05/18/17 09:32 Clonidine HCl (Catapres) 0.1 mg Q4H PRN ORAL sbp more than 160 05/17/17 01:45 06/10/17 21:44 05/17/17 04:00 Dextrose (Dextrose 50%) STAT PRN IV Hypoglycemia 05/17/17 06:45 06/12/17 06:44 Docusate Sodium (Colace) 100 mg TID GT 05/17/17 09:00 06/11/17 12:59 05/18/17 09:33 Doxazosin Mesylate (Cardura) 2 mg BIAC ORAL 05/17/17 06:30 06/15/17 06:29 05/18/17 07:20 Heparin Sodium (Porcine) (Heparin 5000 units/ml) 5,000 units EVERY 12 HOURS SUBQ 05/17/17 09:00 06/11/17 08:59 05/18/17 09:43 Hydralazine HCl (Apresoline) 50 mg Q6HR ORAL 05/17/17 06:00 06/13/17 13:59 05/18/17 07:21 Insulin Aspart (NovoLOG) EVERY 6 HOURS SUBQ 05/17/17 06:00 06/11/17 06:29 05/18/17 07:45 Insulin Detemir (Levemir) 18 units BID SUBQ 05/17/17 09:00 06/13/17 08:59 05/18/17 09:00 Isosorbide Dinitrate (Isordil) 10 mg Q6HR GT 05/17/17 12:00 06/16/17 11:59 05/18/17 07:20 Levothyroxine Sodium (Synthroid) 50 mcg ACBREAKFAST ORAL 05/17/17 06:30 06/11/17 06:29 05/18/17 07:29 Lisinopril (Prinivil) 20 mg BID GT 05/17/17 09:00 06/11/17 10:29 05/18/17 09:31 Metoprolol Tartrate (Lopressor) 125 mg Q12HR GT 05/17/17 09:00 06/15/17 20:59 05/18/17 09:31 Morphine Sulfate (Morphine Sulfate) 2 mg Q4H PRN IVP Severe Pain (Pain Scale 7-10) 05/17/17 01:45 05/18/17 21:44 Nitroglycerin (Ntg) 0.4 mg Q5M X 3 DOSES PRN SL Prn Chest Pain 05/17/17 01:45 06/10/17 21:44 Ondansetron HCl (Zofran) 4 mg Q6H PRN IVP Nausea & Vomiting 05/17/17 03:45 06/10/17 21:44 Polyethylene Glycol (Miralax) 17 gm HSPRN PRN ORAL Constipation 05/17/17 21:45 06/10/17 21:44 Ranitidine HCl (Zantac) 150 mg TWICE A DAY GT 05/17/17 09:00 06/11/17 17:59 05/18/17 09:32 Temazepam (Restoril) 15 mg HSPRN PRN ORAL Insomnia 05/17/17 21:45 05/18/17 21:44 Hellen Hutchison M.D. May 18, 2017 11:19
[2017-05-18 11:57] VITALS: BP 136/72
--- NOTE | 2017-05-18 14:55 | Pulmonology Progress Note ---
Assessment/Plan Assessment/Plan ASSESSMENT acute toxic metabolic encephalopathy ATN on CRI HTN elevated troponin possible NSTEMI DM NSVT dehydration hypernatremia hypothyroidism anemia hx of CVA PLAN OF CARE tele CT head and MRI brain with no acute IC pathology BP management with multiple regimen of anti HTN - stable currently cardio follows per cardio elevated troponin minimally elevated , unclear significance given renal failure ECHO with pEF 65-70% and RVSP of 12 CXR no acute pathology O2 HHN prn pusle oximetry stable on RA nephro follows s/p boluses creat down to 1.5 and Na trending down monitor renal parameters, lytes, avoid nephrotoxic renal US noted BS management with current regimen, long acting Levemir and SSI as needed, stable TSH WNL, continue current dose of Levothyroxine HH at baseline, monitor counts bowel regimen DVT prophylaxis ID follows, recommend to keep off abx and observe closely case discussed and evaluated by supervising physician Subjective Allergies: Coded Allergies: No Known Allergies (Unverified , 05/11/17) Subjective creat down to 1.5 Na trending down BP better controlled Objective Last 24 Hour Vital Signs Date Time Temp Pulse Resp B/P (MAP) Pulse Ox O2 Delivery O2 Flow Rate FiO2 05/18/17 12:56 136/72 05/18/17 12:55 136/72 05/18/17 12:00 71 05/18/17 11:57 97.8 75 20 136/72 99 Room Air 05/18/17 09:32 87 142/87 05/18/17 09:31 87 142/87 05/18/17 09:31 142/87 05/18/17 08:00 97.9 87 21 142/87 96 Room Air 05/18/17 08:00 90 05/18/17 07:25 98 20 Room Air 05/18/17 07:21 140/75 05/18/17 07:20 140/75 05/18/17 04:00 82 05/18/17 04:00 97.7 82 20 140/75 100 Room Air 21 05/18/17 00:39 130/76 05/18/17 00:38 130/76 05/18/17 00:00 75 05/18/17 00:00 97.7 75 18 130/67 97 05/17/17 21:17 106 135/79 05/17/17 20:00 118 05/17/17 20:00 97.9 93 18 112/59 95 05/17/17 19:31 100 20 Room Air 05/17/17 17:37 116/63 05/17/17 17:36 116/63 05/17/17 17:36 116/63 05/17/17 16:00 97.5 66 21 116/63 97 05/17/17 16:00 118 General Appearance: no acute distress HEENT: normocephalic, atraumatic, anicteric Respiratory/Chest: chest wall non-tender, lungs clear, no respiratory distress , no accessory muscle use Cardiovascular: normal rate, regular rhythm, no JVD Abdomen: normal bowel sounds, soft, non tender Neurologic/Psychiatric: abnormal gait, alert, responsive Musculoskeletal: atrophy - BLE Laboratory Tests 05/18/17 06:20: White Blood Count 7.6, Red Blood Count 3.41L, Hemoglobin 10.1L, Hematocrit 31.5L , Mean Corpuscular Volume 93, Mean Corpuscular Hemoglobin 29.6, Mean Corpuscular Hemoglobin Concent 32.0, Red Cell Distribution Width 14.6, Platelet Count 213, Mean Platelet Volume 7.7, Neutrophils (%) (Auto) 63.0, Lymphocytes (% ) (Auto) 22.6, Monocytes (%) (Auto) 6.2, Eosinophils (%) (Auto) 7.5H, Basophils (%) (Auto) 0.8, Sodium Level 149H, Potassium Level 3.8, Chloride Level 113H, Carbon Dioxide Level 29, Anion Gap 7, Blood Urea Nitrogen 53H, Creatinine 1.7H, Estimat Glomerular Filtration Rate 40.8, Glucose Level 271H, Calcium Level 8.7, Phosphorus Level 3.7, Magnesium Level 2.4, Total Bilirubin 0.2, Aspartate Amino Transf (AST/SGOT) 31, Alanine Aminotransferase (ALT/SGPT) 64, Alkaline Phosphatase 95, Troponin I 0.074H, Total Protein 5.9L, Albumin 2.6L, Globulin 3.3, Albumin/Globulin Ratio 0.8L Current Medications Medications (Trade) Dose Ordered Sig/Willem Route PRN Reason Start Time Stop Time Status Last Admin Dose Admin Acetaminophen (Tylenol) 650 mg Q4H PRN ORAL T>100.5 F 05/17/17 01:45 06/10/17 21:44 Amlodipine Besylate (Norvasc) 10 mg DAILY GT 05/17/17 09:00 06/13/17 10:59 05/18/17 09:32 Aspirin (ASA) 81 mg DAILY GT 05/17/17 09:00 06/11/17 10:29 05/18/17 09:32 Clonidine HCl (Catapres) 0.1 mg Q4H PRN ORAL sbp more than 160 05/17/17 01:45 06/10/17 21:44 05/17/17 04:00 Dextrose (Dextrose 50%) STAT PRN IV Hypoglycemia 05/17/17 06:45 06/12/17 06:44 Docusate Sodium (Colace) 100 mg TID GT 05/17/17 09:00 06/11/17 12:59 05/18/17 12:56 Doxazosin Mesylate (Cardura) 2 mg BIAC ORAL 05/17/17 06:30 06/15/17 06:29 05/18/17 07:20 Heparin Sodium (Porcine) (Heparin 5000 units/ml) 5,000 units EVERY 12 HOURS SUBQ 05/17/17 09:00 06/11/17 08:59 05/18/17 09:43 Hydralazine HCl (Apresoline) 50 mg Q6HR ORAL 05/17/17 06:00 06/13/17 13:59 05/18/17 12:56 Insulin Aspart (NovoLOG) EVERY 6 HOURS SUBQ 05/17/17 06:00 06/11/17 06:29 05/18/17 12:58 Insulin Detemir (Levemir) 18 units BID SUBQ 05/17/17 09:00 06/13/17 08:59 05/18/17 09:00 Isosorbide Dinitrate (Isordil) 10 mg Q6HR GT 05/17/17 12:00 06/16/17 11:59 05/18/17 12:55 Levothyroxine Sodium (Synthroid) 50 mcg ACBREAKFAST ORAL 05/17/17 06:30 06/11/17 06:29 05/18/17 07:29 Lisinopril (Prinivil) 20 mg BID GT 05/17/17 09:00 06/11/17 10:29 05/18/17 09:31 Metoprolol Tartrate (Lopressor) 125 mg Q12HR GT 05/17/17 09:00 06/15/17 20:59 05/18/17 09:31 Morphine Sulfate (Morphine Sulfate) 2 mg Q4H PRN IVP Severe Pain (Pain Scale 7-10) 05/17/17 01:45 05/18/17 21:44 Nitroglycerin (Ntg) 0.4 mg Q5M X 3 DOSES PRN SL Prn Chest Pain 05/17/17 01:45 06/10/17 21:44 Ondansetron HCl (Zofran) 4 mg Q6H PRN IVP Nausea & Vomiting 05/17/17 03:45 06/10/17 21:44 Polyethylene Glycol (Miralax) 17 gm HSPRN PRN ORAL Constipation 05/17/17 21:45 06/10/17 21:44 Ranitidine HCl (Zantac) 150 mg TWICE A DAY GT 05/17/17 09:00 06/11/17 17:59 05/18/17 09:32 Temazepam (Restoril) 15 mg HSPRN PRN ORAL Insomnia 05/17/17 21:45 05/18/17 21:44 Alfred UngerLong Island Jewish Medical CenterKandis Bruno NP May 18, 2017 14:55
[2017-05-18 16:00] VITALS: BP 147/82
--- NOTE | 2017-05-18 16:03 | Nephrology Progress Note ---
Assessment/Plan Problem List: (1) Dehydration (2) Hypothyroidism (3) Hypertension (4) ATN (acute tubular necrosis) Assessment Renal: Dehydration and Hypernatremia Renal failure- DM elevated troponin Other: (1) Acute encephalopathy (2) Non-ST elevation (NSTEMI) myocardial infarction (3) Lactic acidosis and UTI (4) Acute hyperglycemia (5) Feeding by G-tube (6) Hypertension Plan Plan; D5W 500 cc add isordil free water Adjust BP meds avoid nephrotoxics Per consultants monitor renal parameters ? DC planning Subjective ROS Limited/Unobtainable: No Constitutional: Reports: malaise Objective Objective Last 24 Hour Vital Signs Date Time Temp Pulse Resp B/P (MAP) Pulse Ox O2 Delivery O2 Flow Rate FiO2 05/18/17 12:56 136/72 05/18/17 12:55 136/72 05/18/17 12:00 71 05/18/17 11:57 97.8 75 20 136/72 99 Room Air 05/18/17 09:32 87 142/87 05/18/17 09:31 87 142/87 05/18/17 09:31 142/87 05/18/17 08:00 97.9 87 21 142/87 96 Room Air 05/18/17 08:00 90 05/18/17 07:25 98 20 Room Air 05/18/17 07:21 140/75 05/18/17 07:20 140/75 05/18/17 04:00 82 05/18/17 04:00 97.7 82 20 140/75 100 Room Air 21 05/18/17 00:39 130/76 05/18/17 00:38 130/76 05/18/17 00:00 75 05/18/17 00:00 97.7 75 18 130/67 97 05/17/17 21:17 106 135/79 05/17/17 20:00 118 05/17/17 20:00 97.9 93 18 112/59 95 05/17/17 19:31 100 20 Room Air 05/17/17 17:37 116/63 05/17/17 17:36 116/63 05/17/17 17:36 116/63 Laboratory Tests 05/18/17 06:20: White Blood Count 7.6, Red Blood Count 3.41L, Hemoglobin 10.1L, Hematocrit 31.5L , Mean Corpuscular Volume 93, Mean Corpuscular Hemoglobin 29.6, Mean Corpuscular Hemoglobin Concent 32.0, Red Cell Distribution Width 14.6, Platelet Count 213, Mean Platelet Volume 7.7, Neutrophils (%) (Auto) 63.0, Lymphocytes (% ) (Auto) 22.6, Monocytes (%) (Auto) 6.2, Eosinophils (%) (Auto) 7.5H, Basophils (%) (Auto) 0.8, Sodium Level 149H, Potassium Level 3.8, Chloride Level 113H, Carbon Dioxide Level 29, Anion Gap 7, Blood Urea Nitrogen 53H, Creatinine 1.7H, Estimat Glomerular Filtration Rate 40.8, Glucose Level 271H, Calcium Level 8.7, Phosphorus Level 3.7, Magnesium Level 2.4, Total Bilirubin 0.2, Aspartate Amino Transf (AST/SGOT) 31, Alanine Aminotransferase (ALT/SGPT) 64, Alkaline Phosphatase 95, Troponin I 0.074H, Total Protein 5.9L, Albumin 2.6L, Globulin 3.3, Albumin/Globulin Ratio 0.8L Height (Feet): 6 Height (Inches): 1.00 Weight (Pounds): 190 General Appearance: no apparent distress Objective no change GARCÍA READ May 18, 2017 16:03
--- NOTE | 2017-05-18 16:05 | General Progress Note ---
Assessment/Plan Problem List: (1) Uncontrolled diabetes mellitus ICD Codes: E11.65 - Type 2 diabetes mellitus with hyperglycemia SNOMED: 89526231, 539409012 (2) Altered mental status ICD Codes: R41.82 - Altered mental status, unspecified SNOMED: 952941955 (3) Feeding by G-tube ICD Codes: Z93.1 - Gastrostomy status SNOMED: 423335945, 937227684 (4) History of CVA (cerebrovascular accident) ICD Codes: Z86.73 - Personal history of transient ischemic attack (TIA), and cerebral infarction without residual deficits SNOMED: 286075278 (5) Lactic acidosis ICD Codes: E87.2 - Acidosis SNOMED: 13715046 (6) Dehydration ICD Codes: E86.0 - Dehydration SNOMED: 20776657 (7) ATN (acute tubular necrosis) ICD Codes: N17.0 - Acute kidney failure with tubular necrosis SNOMED: 29309726 (8) Hypothyroidism ICD Codes: E03.9 - Hypothyroidism, unspecified SNOMED: 02361428 Assessment/Plan increase Levemir to 26 units bid continue Novolog sliding scale every 6 hours continue Levothyroxine 50 mcg daily Subjective ROS Limited/Unobtainable: Yes Allergies: Coded Allergies: No Known Allergies (Unverified , 05/11/17) Subjective events noted on continuous TF BG elevated Objective Last 24 Hour Vital Signs Date Time Temp Pulse Resp B/P (MAP) Pulse Ox O2 Delivery O2 Flow Rate FiO2 05/18/17 12:56 136/72 05/18/17 12:55 136/72 05/18/17 12:00 71 05/18/17 11:57 97.8 75 20 136/72 99 Room Air 05/18/17 09:32 87 142/87 05/18/17 09:31 87 142/87 05/18/17 09:31 142/87 05/18/17 08:00 97.9 87 21 142/87 96 Room Air 05/18/17 08:00 90 05/18/17 07:25 98 20 Room Air 05/18/17 07:21 140/75 05/18/17 07:20 140/75 05/18/17 04:00 82 05/18/17 04:00 97.7 82 20 140/75 100 Room Air 21 05/18/17 00:39 130/76 05/18/17 00:38 130/76 05/18/17 00:00 75 05/18/17 00:00 97.7 75 18 130/67 97 05/17/17 21:17 106 135/79 05/17/17 20:00 118 05/17/17 20:00 97.9 93 18 112/59 95 05/17/17 19:31 100 20 Room Air 05/17/17 17:37 116/63 05/17/17 17:36 116/63 05/17/17 17:36 116/63 Laboratory Tests 05/18/17 06:20: White Blood Count 7.6, Red Blood Count 3.41L, Hemoglobin 10.1L, Hematocrit 31.5L , Mean Corpuscular Volume 93, Mean Corpuscular Hemoglobin 29.6, Mean Corpuscular Hemoglobin Concent 32.0, Red Cell Distribution Width 14.6, Platelet Count 213, Mean Platelet Volume 7.7, Neutrophils (%) (Auto) 63.0, Lymphocytes (% ) (Auto) 22.6, Monocytes (%) (Auto) 6.2, Eosinophils (%) (Auto) 7.5H, Basophils (%) (Auto) 0.8, Sodium Level 149H, Potassium Level 3.8, Chloride Level 113H, Carbon Dioxide Level 29, Anion Gap 7, Blood Urea Nitrogen 53H, Creatinine 1.7H, Estimat Glomerular Filtration Rate 40.8, Glucose Level 271H, Calcium Level 8.7, Phosphorus Level 3.7, Magnesium Level 2.4, Total Bilirubin 0.2, Aspartate Amino Transf (AST/SGOT) 31, Alanine Aminotransferase (ALT/SGPT) 64, Alkaline Phosphatase 95, Troponin I 0.074H, Total Protein 5.9L, Albumin 2.6L, Globulin 3.3, Albumin/Globulin Ratio 0.8L Height (Feet): 6 Height (Inches): 1.00 Weight (Pounds): 190 General Appearance: no apparent distress Neck: normal alignment Cardiovascular: normal rate Respiratory/Chest: lungs clear Abdomen: normal bowel sounds Objective Current Medications Medications (Trade) Dose Ordered Sig/Wlilem Route PRN Reason Start Time Stop Time Status Last Admin Dose Admin Acetaminophen (Tylenol) 650 mg Q4H PRN ORAL T>100.5 F 05/17/17 01:45 06/10/17 21:44 Amlodipine Besylate (Norvasc) 10 mg DAILY GT 05/17/17 09:00 06/13/17 10:59 05/18/17 09:32 Aspirin (ASA) 81 mg DAILY GT 05/17/17 09:00 06/11/17 10:29 05/18/17 09:32 Clonidine HCl (Catapres) 0.1 mg Q4H PRN ORAL sbp more than 160 05/17/17 01:45 06/10/17 21:44 05/17/17 04:00 Dextrose (Dextrose 50%) STAT PRN IV Hypoglycemia 05/17/17 06:45 06/12/17 06:44 Docusate Sodium (Colace) 100 mg TID GT 05/17/17 09:00 06/11/17 12:59 05/18/17 12:56 Doxazosin Mesylate (Cardura) 2 mg BIAC ORAL 05/17/17 06:30 06/15/17 06:29 05/18/17 07:20 Heparin Sodium (Porcine) (Heparin 5000 units/ml) 5,000 units EVERY 12 HOURS SUBQ 05/17/17 09:00 06/11/17 08:59 05/18/17 09:43 Hydralazine HCl (Apresoline) 50 mg Q6HR ORAL 05/17/17 06:00 06/13/17 13:59 05/18/17 12:56 Insulin Aspart (NovoLOG) EVERY 6 HOURS SUBQ 05/17/17 06:00 06/11/17 06:29 05/18/17 12:58 Insulin Detemir (Levemir) 18 units BID SUBQ 05/17/17 09:00 06/13/17 08:59 05/18/17 09:00 Isosorbide Dinitrate (Isordil) 10 mg Q6HR GT 05/17/17 12:00 06/16/17 11:59 05/18/17 12:55 Levothyroxine Sodium (Synthroid) 50 mcg ACBREAKFAST ORAL 05/17/17 06:30 06/11/17 06:29 05/18/17 07:29 Lisinopril (Prinivil) 20 mg BID GT 05/17/17 09:00 06/11/17 10:29 05/18/17 09:31 Metoprolol Tartrate (Lopressor) 125 mg Q12HR GT 05/17/17 09:00 06/15/17 20:59 05/18/17 09:31 Morphine Sulfate (Morphine Sulfate) 2 mg Q4H PRN IVP Severe Pain (Pain Scale 7-10) 05/17/17 01:45 05/18/17 21:44 Nitroglycerin (Ntg) 0.4 mg Q5M X 3 DOSES PRN SL Prn Chest Pain 05/17/17 01:45 06/10/17 21:44 Ondansetron HCl (Zofran) 4 mg Q6H PRN IVP Nausea & Vomiting 05/17/17 03:45 06/10/17 21:44 Polyethylene Glycol (Miralax) 17 gm HSPRN PRN ORAL Constipation 05/17/17 21:45 06/10/17 21:44 Ranitidine HCl (Zantac) 150 mg TWICE A DAY GT 05/17/17 09:00 06/11/17 17:59 05/18/17 09:32 Temazepam (Restoril) 15 mg HSPRN PRN ORAL Insomnia 05/17/17 21:45 05/18/17 21:44 Item Value Date Time Bedside Blood Glucose 282 mg/dl H 05/18/17 1258 Bedside Blood Glucose 280 mg/dl H 05/18/17 0900 Bedside Blood Glucose 280 mg/dl H 05/18/17 0600 Bedside Blood Glucose 237 mg/dl H 05/18/17 0043 Bedside Blood Glucose 290 mg/dl H 05/17/17 1800 Bedside Blood Glucose 280 mg/dl H 05/17/17 1200 CLARITA DIANA May 18, 2017 16:05
[2017-05-18] MEDS ORDERED: Levemir Flexpen SUBQ SCH (18:00)
[2017-05-18] MEDS ORDERED: NS 500ML ONE (18:59)
[2017-05-21 12:13] LABS: CRYPTOCOCCAL ANTIGEN SERUM Negative (Negative)
--- NOTE | 2017-05-21 13:26 | Discharge Summary ---
Discharge Summary Hospital Course Date of Admission May 11, 2017 at 20:55 Date of Discharge May 18, 2017 at 19:00 Admitting Diagnosis altered mental status, sepsis. HPI Justin Pimentel is a 62 year old male who was admitted on May 11, 2017 at 20: 55 for Altered Mental Status, Sepsis Hospital Course dc summary #[id number] Discharge Medications Continued Medications: Acetaminophen (Tylenol) 325 Mg Tablet 325 MG GT Q6H PRN for Prn Pain/Headache/Temp > 101, #30 TAB 0 Refills Ascorbic Acid* (Vitamin C*) 500 Mg Tablet 500 MG GT TWICE A DAY, TAB Aspirin* (Aspir 81*) 81 Mg Tablet.dr 81 MG GT DAILY, TAB Docusate Sodium* (Colace*) 100 Mg Capsule 100 MG GT DAILY, CAP Hydralazine Hcl* (Hydralazine Hcl*) 100 Mg Tablet 100 MG GT BID, TAB Levothyroxine Sodium* (Synthroid*) 25 Mcg Tablet 50 MCG GT DAILY, TAB Take in the morning on an empty stomach, at least 30 minutes before food. Discontinued Medications: Acetaminophen* (Tylenol Extra Strength*) 500 Mg Tablet 500 MG GT Q6H PRN for Mild Pain/Temp > 100.5, TAB 0 Refills Atorvastatin Calcium* (Lipitor*) 10 Mg Tablet 10 MG GT BEDTIME, TAB Bisacodyl (Dulcolax) 10 Mg Supp.rect 10 MG RC DAILY PRN for Constipation, SUPP Cholecalciferol (Vitamin D3) (Vitamin D3) 5,000 Unit Capsule 5000 UNIT GT weekly, CAP Clonidine (Clonidine) 1 Each Patch.tdwk 1 EACH TD, PATCH Diltiazem Hcl* (Cardizem*) 30 Mg Tablet Unknown Dose PO QID, TAB Ferrous Sulfate (Ferrous Sulfate) 220 Mg/5 Ml Elixir 220 MG GT BID, ML Insulin Detemir (Levemir Flexpen) 100 Unit/1 Ml Insuln.pen 24 SUBQ EVERY 12 HOURS, #300 UNITS 0 Refills Insulin Regular, Human (Humulin R) 100 Unit/1 Ml Vial 0 SUBQ BEFORE MEALS AND HS, VIAL Linagliptin (Tradjenta) 5 Mg Tablet 5 MG GT DAILY, TAB Lisinopril* (Lisinopril*) 40 Mg Tablet 40 MG GT DAILY, TAB Magnesium Hydroxide* (Milk Of Magnesia*) 400 Mg/5 Ml Oral.susp 30 ML GT BEDTIME PRN for Constipation, ML Metformin Hcl* (Metformin Hcl*) 500 Mg Tablet 500 MG GT THREE TIMES A DAY, TAB Metoprolol Succinate* (Metoprolol Succinate*) 100 Mg Tab.er.24h 100 MG GT BID, TAB Multivitamin Liquid* (Multi-Delyn*) 237 Ml Liquid 5 ML GT DAILY, ML Na Phos,M-B/Na Phos,Di-Ba* (Fleet Enema*) 133 Ml Enema 133 ML RECTAL PRN, ML 0 Refills Omeprazole (Omeprazole) 20 Mg Tablet. 20 MG GT DAILY, TAB Discharge Condition Upon Discharge: stable Discharge Disposition Patient was discharged to SNF/Subacute Facility(03) Discharge Diagnoses: Alfred (Kendrickselvin)Kandis NP May 21, 2017 13:26
--- NOTE | 2017-05-21 20:45 | Discharge Summary 2 SIG ---
DATE OF ADMISSION: 05/11/2017 DATE OF DISCHARGE: 05/18/2017 REASON FOR ADMISSION: 62-year-old male, a resident of the prison facility, with past medical history of chronic kidney disease, encephalopathy, multiple sclerosis, atherosclerosis, depression, diabetes, hypertension vitamin D deficiency, and hypothyroidism, was sent from the prison facility for evaluation due to the acute onset of altered mental status. Upon evaluation in the emergency room, vital signs were stable. Laboratory workup revealed evidence of hypernatremia, sodium -153; acute renal failure with BUN -69, creatinine -2.0; and glucose -183. Elevated magnesium -2.3. Troponin was minimally elevated - 0.073. CK- 59. Lactic acid elevated - 2.5. Urinalysis with possible evidence of UTI. No leukocytosis. No fever. The patient was admitted for altered mental status, lactic acidosis, possible urinary tract infection, hypernatremia , dehydration, and diabetes. HOSPITAL STAY: The patient was admitted to telemetry floor. Energy Director followed for elevated troponin. According to [employer], troponin was minimally elevated,and was of unclear significance given renal failure. Serial troponins were followed up, troponin was trending down, and last troponin was negative. Per [employer], troponin were only minimally abnormal and at the same level. He doubted non-STEMI. Echocardiogram revealed preserved ejection fraction of 65% to 70% and right ventricular systolic pressure of 12. Blood pressure was managed with regimen of antihypertensive medication and was stable. Old EKG was obtained and compared for the ST-segment changes with EKG upon admission. Per [employer], the ST-segment changes were present previously as well. The patient had nonsustained wide-complex tachycardia, possibly related to electrolyte abnormalities as per [employer]. Lease Administration Analyst closely followed. Chest x-ray revealed no acute cardiopulmonary pathology. Supplemental oxygen and pulmonary toilet were provided as needed. Pulse oximetry was stable on room air prior to discharge. Trimmer Loader followed. Initial BUN-69 and creatinine -2.0. Prior to discharge, BUN -53, creatinine -1.7,-sodium -149. Trimmer Loader given additional bolus of 500 mL of D5 water, increased free water via G-tube. Recommended closely monitor electrolytes and renal parameters and avoid nephrotoxics. Renal ultrasound revealed right renal pelviectasis and mild diffuse bladder wall thickening with prominent prostate. CT of the head and MRI of the brain both revealed no acute intracranial pathology. Neurologist closely followed. Per neurologist, the patient had old right middle cerebral artery distribution stroke with left hemiplegia as well as the paraplegia secondary to polyneuropathy and chronic illness, i.e. MS. The patient also had a new onset of persistent lethargy, most likely multifactorial including underlying metabolic derangement and dehydration. Neurologist recommended to hold all unnecessary and sedating medication, continue intravenous fluids and correct metabolic abnormalities. Project Director followed. Blood sugar was managed with sliding scale of insulin and long-acting Levemir, dose of Levemir was increased. Hemoglobin A1c was 7.0. TSH was within normal limits. Current dose of levothyroxine was continued. Hemoglobin and hematocrit remained at the baseline. Counts were closely monitored. No need for transfusion at this time. Pain management was provided. Bowel regimen was instituted. DVT prophylaxis was provided. ID followed the patient. Per Infectious Disease doctor, no evidence of acute infection. Chest x-ray was negative. Blood culture were negative. Urinalysis revealed some pyuria, but few bacteria. Repeated urinalysis revealed no pyuria and occasional bacteria only. Wound care nurse seen the patient for left buttock decubitus stage II, present on admission. Wound care was provided as per wound care nurse recommendation. Lactic acidosis initially present on admission, resolved. Strict aspiration precautions were maintained. G-tube feeding was continued. The patient was able to tolerate G-tube feeding. The patient was stable for discharge back to prison facility. FINAL DIAGNOSES: 1. Acute toxic metabolic encephalopathy, likely multifactorial due to the metabolic derangement, progressive dementia, and dehydration. 2. Acute tubular necrosis on chronic renal insufficiency, improved. 3. Hypertension. 4. Elevated troponin. 5. Possible non-ST segment elevation myocardial infarction. 6. Diabetes mellitus, out of control. 7. Nonsustained ventricular tachycardia. 8. Dehydration. 9. Hypernatremia. 10. Hypothyroidism. 11. Lactic acidosis, resolved. 12. Dysphagia, gastrostomy tube. 13. 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 14. Left buttock decubitus ulcer stage II, present on admission. 15. Anemia. 16. History of cerebrovascular accident with right middle cerebral artery distribution and left hemiplegia. DISCHARGE MEDICATIONS: See medication reconciliation list. DISCHARGE INSTRUCTIONS: The patient was discharged to prison facility. Follow up with medical doctor at the facility. Martina Morales M.D. Kandis SharpTiara pop DR: PAMELA JOB#: [id number] CC: COLLEEN
[2017-05-23 09:20] LABS: FTA-ABS Non Reactive (Non Reactive)
== END 2017-05-18 19:00 | DRG 91 ==
LOC: EDBD 19:19 → EMR 20:53 → 2W 20:55 → EDBEDREQSVC 21:18 → EDBEDREQ 21:19 → 2E 05-17 01:44
DX: G92 Toxic encephalopathy (principal); I21.4 Non-ST elevation (NSTEMI) myocardial infarction; N17.0 Acute kidney failure with tubular necrosis; I47.2 Ventricular tachycardia; L89.322 Pressure ulcer of left buttock, stage 2; E87.0 Hyperosmolality and hypernatremia; E87.2 Acidosis; N39.0 Urinary tract infection, site not specified; Z43.1 Encounter for attention to gastrostomy; I69.354 Hemiplegia and hemiparesis following cerebral infarction affecting left non-dominant side; F03.90 Unspecified dementia, unspecified severity, without behavioral disturbance, psychotic disturbance, mood disturbance, and anxiety; G82.20 Paraplegia, unspecified; E11.65 Type 2 diabetes mellitus with hyperglycemia; E86.0 Dehydration; Z86.73 Personal history of transient ischemic attack (TIA), and cerebral infarction without residual deficits; E78.5 Hyperlipidemia, unspecified; Z79.4 Long term (current) use of insulin; G35 Multiple sclerosis; E11.22 Type 2 diabetes mellitus with diabetic chronic kidney disease; I12.9 Hypertensive chronic kidney disease with stage 1 through stage 4 chronic kidney disease, or unspecified chronic kidney disease; N18.9 Chronic kidney disease, unspecified; E03.9 Hypothyroidism, unspecified; G62.9 Polyneuropathy, unspecified; D64.9 Anemia, unspecified; F31.9 Bipolar disorder, unspecified; I25.10 Atherosclerotic heart disease of native coronary artery without angina pectoris; Z22.322 Carrier or suspected carrier of Methicillin resistant Staphylococcus aureus
CPT/HCPCS: 36415; 70450; 70551; 71010; 76775; 80048; 80053; 80061; 80307; 81003; 82550; 82553; 82607; 82746; 82962; 82977; 83036; 83605; 83735; 83880; 84100; 84133; 84300; 84443; 84484; 84550; 85025; 85610; 85651; 85730; 86140; 86592; 86635; 86703; 86780; 87040; 87081; 87449; 89050; 93005; 93306; 94664; 94760; 99285; J1815; S5561

== ENCOUNTER 2017-05-21 05:34 | Inpatient (IN) | payer MEDICARE, MEDICAID ==
[2017-05-21] VITALS (9 sets, daily range): BP systolic 116–189; BP diastolic 74–101
[~2017-05-21] VITALS: Ht 180.3 cm; Wt 72.6 kg
[~2017-05-21 05:34] MED LIST: ASPIR 8181 MG GT; ATORVASTATIN CA10 MG GT; CARDIZEM30 M1 PO; CLONIDINE1 EAC1 TD; COLACE100 MG GT; DULCOLAX10 MG RC; FERROUS SU220 MG/53 GT; FLEET ENEMA133 ML RECTAL; HUMULIN R100 UNIT/1 SUBQ; HYDRALAZINE HC100 MG GT; LEVEMIR FL100 UNIT/1 SUBQ; LISINOPRIL40 MG GT; METFORMIN HCL500 M1 GT; METOPROLOL SUC100 MG GT; MILK OF MA400 MG/51 GT; MULTI-DELYN237 ML GT; OMEPRAZOLE20 M3 GT; SYNTHROID25 MCG GT; TRADJENTA5 MG GT; TYLENOL EXTRA500 MG GT; TYLENOL325 MG GT; VITAMIN C500 M1 GT; VITAMIN D35000 UNIT GT
[2017-05-21] MEDS ORDERED: ZANTAC150 MG GT (05:48)
[2017-05-21] MEDS ORDERED: HEPARIN 5,5000 UNIT1 SUBQ (05:48)
[2017-05-21] MEDS ORDERED: NORVASC10 MG GT (05:48)
[2017-05-21] MEDS ORDERED: HYDRALAZINE HCL50 MG GT (05:48)
[2017-05-21] MEDS ORDERED: METOPROLOL TAR100 MG GT (05:48)
[2017-05-21] MEDS ORDERED: CARDURA1 MG GT (05:48)
[2017-05-21] MEDS ORDERED: ISOSORBIDE DINI10 MG GT (05:48)
[2017-05-21] MEDS ORDERED: LISINOPRIL20 MG GT (05:48)
[2017-05-21] MEDS ORDERED: MIRALAX17 G2 GT (05:51)
[2017-05-21] MEDS ORDERED: RESTORIL15 MG ORAL (05:51)
[2017-05-21] MEDS ORDERED: CATAPRES0.1 MG ORAL (05:51)
[2017-05-21] MEDS ORDERED: NITROGLYCERIN0.4 MG SL (05:51)
[2017-05-21] MEDS ORDERED: NS 1000ml 2,200 ML IVLG ONE (06:00)
[2017-05-21 06:04] LABS: BASOPHILS % (AUTO) 0.8 % (0.0-2.0); EOSINOPHILS % (AUTO) 1.2 % (0.0-3.0); LYMPHOCYTES % (AUTO) 12.5 % (20.0-45.0); MEAN CORPUSCULAR HEMOGLOBIN 29.9 PG (27.0-31.0); MEAN CORPUSCULAR HGB CONC 31.6 G/DL (32.0-36.0); MEAN CORPUSCULAR VOLUME 95 FL (80-99); MEAN PLATELET VOLUME 8.2 FL (6.5-10.1); MONOCYTES % (AUTO) 6.6 % (1.0-10.0); PLATELET COUNT 259 K/UL (150-450); RED BLOOD COUNT 3.42 M/UL (4.70-6.10); RED CELL DISTRIBUTION WIDTH 15.9 % (11.6-14.8); WHITE BLOOD COUNT 8.9 K/UL (4.8-10.8)
[2017-05-21 06:16] LABS: ANION GAP 4 mmol/L (5-15); CALCIUM 8.4 MG/DL (8.5-10.1); CARBON DIOXIDE 31 MMOL/L (21-32); CHLORIDE 116 MMOL/L (98-107); CREATININE 1.8 MG/DL (0.55-1.30); GLOMERULAR FILTRATION RATE 38.2 mL/min (>60); POTASSIUM 5.6 MMOL/L (3.5-5.1); SODIUM 151 MMOL/L (136-145)
--- NOTE | 2017-05-21 06:16 | Emergency Room Report ---
History of Present Illness General Chief Complaint: Altered Level of Consciousness Source: Family Member, Medical Record, EMS (FATUMA MCCLAIN M.D.) Present Illness HPI Is a 62-year-old male from care home. He has a history of CVA with hemiplegia, bedbound, feeding tube. Also history diabetes. He was admitted here recently for sepsis and just discharged back to care home. He was brought in for altered mental status. Onset today. Unable to get any history from patient. History is from his recent admission and care home note. Per nurse who took care of him last time, patient able to talk. (FATUMA MCCLAIN M.D.) Allergies: Coded Allergies: No Known Allergies (Unverified , 05/11/17) Patient History Past Medical History: see triage record, old chart reviewed Past Surgical History: other Pertinent Family History: none Social History: Denies: smoking Immunizations: UTD Reviewed Nursing Documentation: PMH: Agreed, PSxH: Agreed (FATUMA MCCLAIN M.D.) Nursing Documentation-PMH Past Medical History: No History, Except For Hx Cardiac Problems: Yes - cardiac arrhythmia Hx Hypertension: Yes - atherosclerosis Hx Asthma: Yes Hx Diabetes: Yes - type 2 dm Hx Cancer: No Hx Gastrointestinal Problems: Yes - vit d def,cholelyhiasis without obstruction Hx Neurological Problems: Yes - multiple sclerosis, osteoporosis, uti, encephalopathy Hx Cerebrovascular Accident: Yes - hemiplegia, hemiparesis right side Hx Dementia: Yes Hx Concentration Difficulty: Yes - failure to thrive Hx Speech Problem: Yes - DELAYED Hx Dysphasia: Yes (FATUMA MCCLAIN M.D.) Review of Systems Constitutional: Reports: weakness All Other Systems: limited - Secondary to his condition. (FATUMA MCCLAIN M.D.) Physical Exam Vital Signs Date Time Temp Pulse Resp B/P (MAP) Pulse Ox O2 Delivery O2 Flow Rate FiO2 05/21/17 05:34 97.2 122 16 161/90 95 Room Air vitals with tachycardia. Patient felt warm to the touch. We'll get Rectal temperature Sp02 EP Interpretation: reviewed, abnormal - Really observation is 90% on 2 L General Appearance: moderate distress, lethargic, Chronically Ill Head: normocephalic, atraumatic Eyes: bilateral eye PERRL, bilateral eye EOMI ENT: dry mucus membranes Neck: full range of motion, supple, no meningismus Respiratory: chest non-tender, rhonchi Cardiovascular #1: regular rate, rhythm, no murmur, tachycardia Gastrointestinal: normal bowel sounds, non tender, no mass, no organomegaly, no bruit, non-distended, other - G-tube intact Musculoskeletal: no calf tenderness Neurologic: other - Hemiplegia Skin: warm/dry (FATUMA MCCLAIN M.D.) Procedures Critical Care Time Critical Care Time Critical care is mandated in this patient who presented with sepsis. Patient require my urgent intervention to attenuate the risks of metabolic collapse which may lead to cardiovascular collapse and . Critical care time is 35 minutes excluding any reportable procedure. Critical care time included evaluation, multiple reevaluation, looking at old charts, interpreting laboratory and diagnostic data, discussing case with patient and family and consultants, and charting. (FATUMA MCCLAIN M.D.) Medical Decision Making Diagnostic Impression: Primary Impression: Acute encephalopathy Additional Impressions: Sepsis Qualified Codes: A41.9 - Sepsis, unspecified organism UTI (urinary tract infection) Qualified Codes: N30.01 - Acute cystitis with hematuria Hyperkalemia Dehydration ER Course Patient presents with encephalopathy and sepsis. Labs, urine, chest x-ray pending. Will admit. Lab Results Impression labs with dehydration (FATUMA MCCLAIN M.D.) ER Course Patient signed out to me by Dr Mcclain at 630am Patient tachycardic, AMS UA grossly infected Blood, Urine Cx pending Empiric Abx given - zosyn Also noted hyperK - ECG is sinus tach. - given Calcium, Albuterol - Dextrose/Insulin held because POC glucose after chemistry was [address] Martina Morales, RICARDO, Admitted to tele at 8am. (TARIK CAICEDO M.D.) EKG Diagnostic Results Rate: tachycardiac Rhythm: NSR ST Segments: no acute changes (FATUMA MCCLAIN M.D.) Rhythm: NSR ST Segments: no acute changes ASA given to the pt in ED: No (TARIK CAICEDO M.D.) Rhythm Strip Diag. Results Rhythm Strip Time: 06:16 EP Interpretation: yes Rate: 117 Rhythm: NSR, no PVC's, no ectopy (FATUMA MCCLAIN M.D.) EP Interpretation: yes Rate: 116 Rhythm: NSR, other - Multiple PVCs (TARIK CAICEDO M.D.) Chest X-Ray Diagnostic Results Chest X-Ray Diagnostic Results : Chest X-Ray Ordered: Yes # of Views/Limited/Complete: 1 View Indication: Shortness of Breath EP Interpretation: Yes Interpretation: no consolidation, no effusion, no pneumothorax, no acute cardiopulmonary disease Impression: No acute disease Electronically Signed by: Fatuma Mcclain MD (FATUMA MCCLAIN M.D.) Chest X-Ray Diagnostic Results : Chest X-Ray Ordered: Yes # of Views/Limited/Complete: 1 View Indication: Other - AMS EP Interpretation: Yes Interpretation: no consolidation, no effusion, no pneumothorax, no acute cardiopulmonary disease Impression: No acute disease Electronically Signed by: Dr Tarik Caicedo MD (TARIK CAICEDO M.D.) Last Vital Signs Date Time Temp Pulse Resp B/P (MAP) Pulse Ox O2 Delivery O2 Flow Rate FiO2 05/21/17 05:34 97.2 122 16 161/90 95 Room Air Status: improved (FATUMA MCCLAIN M.D.) Status: improved (TARIK CAICEDO M.D.) Disposition: ADMITTED INPATIENT Condition: Serious FATUMA MCCLAIN M.D. May 21, 2017 06:16 TARIK CAICEDO M.D. May 21, 2017 08:07
[2017-05-21 06:17] LABS: INR 0.9 (0.9-1.1); PROTHROMBIN TIME 9.4 SEC (9.30-11.50)
[2017-05-21 06:30] LABS: ALANINE AMINOTRANSFERASE 69 U/L (12-78); ALBUMIN/GLOBULIN RATIO 0.8 (1.0-2.7); ASPARTATE AMINO TRANSFERASE 63 U/L (15-37); CKMB 4.6 NG/ML (0.0-3.6); TOTAL PROTEIN 6.3 G/DL (6.4-8.2)
[2017-05-21 06:46] LABS: APPEARANCE,URINE VERY CLOUDY; KETONES,URINE NEGATIVE (NEGATIVE); LEUKOCYTE ESTERASE ,URINE 3+ (NEGATIVE); NITRITE,URINE NEGATIVE (NEGATIVE); PH,URINE 6 (4.5-8.0); PROTEIN,URINE 3+ (NEGATIVE); UROBILINOGEN,URINE NORMAL MG/DL (0.0-1.0)
[2017-05-21 07:01] LABS: RBC,URINE 15-20 /HPF (0 - 0); WBC,URINE TNTC /HPF (0 - 0)
[2017-05-21 07:02] LABS: BACTERIA,URINE FEW /HPF; SQUAMOUS EPITHELIAL CELL,UR OCCASIONAL /LPF (NONE/OCC); YEAST,URINE MANY /HPF
[2017-05-21] MEDS ORDERED: Piperacillin/Tazobactam 3.375 GM in NS 55 ML IVPB ONE (07:30)
[2017-05-21] MEDS ORDERED: Calcium Gluconate 1gm/10ml vial IVP ONE (07:30)
[2017-05-21] MEDS ORDERED: Albuterol ud Inhalation HHN ONE (07:30)
[2017-05-21] MEDS ORDERED: Zosyn 3.375gm inj ONE (07:33)
--- NOTE | 2017-05-21 10:32 | Diagnostic Imaging Report ---
Indication: SOB Technique: One view of the chest Comparison: 05/14/2017 Findings: Lungs and pleural spaces are clear. The heart size is normal. Aorta is tortuous. Upper mediastinum is unremarkable. There is a gastrostomy. Findings are overall unchanged Impression: No acute process
--- NOTE | 2017-05-21 15:04 | Consultation ---
History of Present Illness General Date patient seen: May 21, 2017 Chief Complaint: Altered Level of Consciousness Reason for Consultation: inpatient management Present Illness HPI 62-year-old male history of CVA with hemiplegia, bedbound, feeding tube from [facility], diabetes. He was admitted here recently for sepsis and just discharged back to [facility]. He was brought in for altered mental status. Pt was febrile in ER and obtunded in ER. Also had ATN. Pt is admitted for further evaluation. Allergies: Coded Allergies: No Known Allergies (Unverified , 05/11/17) Medication History Scheduled Amlodipine Besylate (Norvasc), 10 MG GT DAILY, (Reported) Ascorbic Acid* (Vitamin C*), 500 MG GT TWICE A DAY, (Reported) Aspirin* (Aspir 81*), 81 MG GT DAILY, (Reported) Docusate Sodium* (Colace*), 100 MG GT DAILY, (Reported) Doxazosin Mesylate* (Cardura*), 2 MG GT BID, (Reported) Heparin Sod,Porcine/0.9 % NaCl (Heparin 5,000 Unit/1,000 Ml-Ns), 5,000 UNIT SUBQ Q12HR, (Reported) Hydralazine Hcl* (Hydralazine Hcl*), 100 MG GT BID, (Reported) Hydralazine Hcl* (Hydralazine Hcl*), 50 MG GT EVERY 6 HOURS, (Reported) Isosorbide Dinitrate* (Isordil*), 10 MG GT EVERY 6 HOURS, (Reported) Levothyroxine Sodium* (Synthroid*), 50 MCG GT DAILY, (Reported) Lisinopril (Lisinopril*), 20 MG GT DAILY, (Reported) Metoprolol Tartrate* (Metoprolol Tartrate*), 125 MG GT EVERY 12 HOURS, (Reported ) Polyethylene Glycol 3350* (Miralax*), 17 GM GT DAILY, (Reported) Ranitidine Hcl* (Zantac*), 150 MG GT TWICE A DAY, (Reported) Scheduled PRN Acetaminophen (Tylenol), 325 MG GT Q6H PRN for Prn Pain/Headache/Temp > 101, ( Reported) Clonidine Hcl* (Catapres*), 0.1 MG ORAL EVERY 4 HOURS PRN for For High Blood Pressure, (Reported) Temazepam* (Restoril*), 15 MG ORAL BEDTIME PRN for Insomnia, (Reported) Miscellaneous Medications Nitroglycerin (Nitroglycerin), 0.4 MG SL, (Reported) Discontinued Medications Acetaminophen* (Tylenol Extra Strength*), 500 MG GT Q6H PRN for Mild Pain/Temp > 100.5, (Reported) Discontinued Reason: MD discontinued med Atorvastatin Calcium* (Lipitor*), 10 MG GT BEDTIME, (Reported) Discontinued Reason: MD discontinued med Bisacodyl (Dulcolax), 10 MG RC DAILY PRN for Constipation, (Reported) Discontinued Reason: MD discontinued med Cholecalciferol (Vitamin D3) (Vitamin D3), 5,000 UNIT GT weekly, (Reported) Discontinued Reason: MD discontinued med Clonidine (Clonidine), 1 EACH TD, (Reported) Discontinued Reason: MD discontinued med Diltiazem Hcl* (Cardizem*), Unknown Dose PO QID, (Reported) Discontinued Reason: MD discontinued med Ferrous Sulfate (Ferrous Sulfate), 220 MG GT BID, (Reported) Discontinued Reason: MD discontinued med Insulin Detemir (Levemir Flexpen), 24 SUBQ EVERY 12 HOURS, (Reported) Discontinued Reason: Medication dose changed Insulin Regular, Human (Humulin R), 0 SUBQ BEFORE MEALS AND HS, (Reported) Discontinued Reason: MD discontinued med Linagliptin (Tradjenta), 5 MG GT DAILY, (Reported) Discontinued Reason: MD discontinued med Lisinopril* (Lisinopril*), 40 MG GT DAILY, (Reported) Discontinued Reason: Medication dose changed Magnesium Hydroxide* (Milk Of Magnesia*), 30 ML GT BEDTIME PRN for Constipation, (Reported) Discontinued Reason: MD discontinued med Metformin Hcl* (Metformin Hcl*), 500 MG GT THREE TIMES A DAY, (Reported) Discontinued Reason: MD discontinued med Metoprolol Succinate* (Metoprolol Succinate*), 100 MG GT BID, (Reported) Discontinued Reason: Medication dose changed Multivitamin Liquid* (Multi-Delyn*), 5 ML GT DAILY, (Reported) Discontinued Reason: MD discontinued med Na Phos,M-B/Na Phos,Di-Ba* (Fleet Enema*), 133 ML RECTAL PRN, (Reported) Discontinued Reason: MD discontinued med Omeprazole (Omeprazole), 20 MG GT DAILY, (Reported) Discontinued Reason: MD discontinued med Patient History Healthcare decision maker Anna Carmen Resuscitation status Advanced Directive on File Past Medical/Surgical History Past Medical/Surgical History: (1) History of CVA (cerebrovascular accident) (2) V-tach (3) Non-ST elevation (NSTEMI) myocardial infarction (4) Feeding by G-tube (5) Hypertension Review of Systems All Other Systems: negative except mentioned in HPI Physical Exam General Appearance: WD/WN Lines, tubes and drains: peripheral HEENT: normocephalic Neck: non-tender, normal alignment Respiratory/Chest: chest wall non-tender, lungs clear Breasts: no masses Cardiovascular/Chest: normal peripheral pulses Abdomen: normal bowel sounds Genitourinary/Rectal: normal genital exam, normal rectal exam Extremities: normal range of motion Skin Exam: normal pigmentation 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 normal Last 24 Hour Vital Signs Date Time Temp Pulse Resp B/P (MAP) Pulse Ox O2 Delivery O2 Flow Rate FiO2 05/21/17 12:00 77 05/21/17 11:48 97.7 76 18 173/101 99 05/21/17 09:54 97.9 73 16 185/95 99 05/21/17 09:15 97.2 107 14 173/80 100 Nasal Cannula 2.0 28 05/21/17 09:15 107 14 173/80 100 Nasal Cannula 2.0 28 05/21/17 08:33 119 189/96 05/21/17 08:06 115 15 189/96 100 Nasal Cannula 05/21/17 07:58 115 16 100 Nasal Cannula 2.0 28 05/21/17 07:45 114 18 98 Nasal Cannula 2.0 28 05/21/17 07:45 114 18 Nasal Cannula 2.0 28 05/21/17 06:49 115 22 180/96 99 Room Air 05/21/17 05:45 97.2 103 16 161/90 95 Room Air 05/21/17 05:34 97.2 122 16 161/90 95 Room Air Intake and Output 05/21/17 05/22/17 19:00 07:00 Intake Total 55 ml Balance 55 ml IV Total 55 ml Laboratory Tests Test 05/21/17 05:50 05/21/17 06:30 White Blood Count 8.9 K/UL (4.8-10.8) Red Blood Count 3.42 M/UL (4.70-6.10) L Hemoglobin 10.2 G/DL (14.2-18.0) L Hematocrit 32.3 % (42.0-52.0) L Mean Corpuscular Volume 95 FL (80-99) Mean Corpuscular Hemoglobin 29.9 PG (27.0-31.0) Mean Corpuscular Hemoglobin Concent 31.6 G/DL (32.0-36.0) L Red Cell Distribution Width 15.9 % (11.6-14.8) H Platelet Count 259 K/UL (150-450) Mean Platelet Volume 8.2 FL (6.5-10.1) Neutrophils (%) (Auto) 79.0 % (45.0-75.0) H Lymphocytes (%) (Auto) 12.5 % (20.0-45.0) L Monocytes (%) (Auto) 6.6 % (1.0-10.0) Eosinophils (%) (Auto) 1.2 % (0.0-3.0) Basophils (%) (Auto) 0.8 % (0.0-2.0) Prothrombin Time 9.4 SEC (9.30-11.50) Prothromb Time International Ratio 0.9 (0.9-1.1) Activated Partial Thromboplast Time 21 SEC (23-33) L Sodium Level 151 MMOL/L (136-145) H Potassium Level 5.6 MMOL/L (3.5-5.1) H Chloride Level 116 MMOL/L (98-107) H Carbon Dioxide Level 31 MMOL/L (21-32) Anion Gap 4 mmol/L (5-15) L Blood Urea Nitrogen 63 mg/dL (7-18) H Creatinine 1.8 MG/DL (0.55-1.30) H Estimat Glomerular Filtration Rate 38.2 mL/min (>60) Glucose Level 345 MG/DL (74-106) H Lactic Acid Level 1.10 mmol/L (0.66-2.22) Calcium Level 8.4 MG/DL (8.5-10.1) L Total Bilirubin 0.3 MG/DL (0.2-1.0) Aspartate Amino Transf (AST/SGOT) 63 U/L (15-37) H Alanine Aminotransferase (ALT/SGPT) 69 U/L (12-78) Alkaline Phosphatase 100 U/L (46-116) Total Creatine Kinase 305 U/L (26-308) Creatine Kinase MB 4.6 NG/ML (0.0-3.6) H Creatine Kinase MB Relative Index 1.5 Troponin I 0.052 ng/mL (0.000-0.056) Total Protein 6.3 G/DL (6.4-8.2) L Albumin 2.7 G/DL (3.4-5.0) L Globulin 3.6 g/dL Albumin/Globulin Ratio 0.8 (1.0-2.7) L Urine Color Pale yellow Urine Appearance Very cloudy Urine pH 6 (4.5-8.0) Urine Specific [place] 1.010 (1.005-1.035) Urine Protein 3+ (NEGATIVE) H Urine Glucose (UA) 3+ (NEGATIVE) H Urine Ketones Negative (NEGATIVE) Urine Occult Blood 3+ (NEGATIVE) H Urine Nitrite Negative (NEGATIVE) Urine Bilirubin Negative (NEGATIVE) Urine Urobilinogen Normal MG/DL (0.0-1.0) Urine Leukocyte Esterase 3+ (NEGATIVE) H Urine RBC 15-20 /HPF (0 - 0) H Urine WBC Tntc /HPF (0 - 0) H Urine Squamous Epithelial Cells Occasional /LPF Urine Bacteria Few /HPF (NONE) Urine Yeast Many /HPF (NONE) H Height (Feet): 5 Height (Inches): 11.00 Weight (Pounds): 160 Medications Current Medications Medications (Trade) Dose Ordered Sig/Willem Route PRN Reason Start Time Stop Time Status Last Admin Dose Admin Metoprolol Tartrate (Lopressor) 100 mg STAT GT 05/21/17 08:30 06/20/17 08:29 05/21/17 08:33 Assessment/Plan Problem List: (1) Sepsis ICD Codes: A41.9 - Sepsis, unspecified organism SNOMED: 82647055 Qualifiers: Qualified Codes: A41.9 - Sepsis, unspecified organism (2) Acute encephalopathy ICD Codes: G93.40 - Encephalopathy, unspecified SNOMED: 8617401 (3) ATN (acute tubular necrosis) ICD Codes: N17.0 - Acute kidney failure with tubular necrosis SNOMED: 13940002 (4) History of CVA (cerebrovascular accident) ICD Codes: Z86.73 - Personal history of transient ischemic attack (TIA), and cerebral infarction without residual deficits SNOMED: 425268796 (5) Feeding by G-tube ICD Codes: Z93.1 - Gastrostomy status SNOMED: 246081388, 838819092 (6) Hypertension ICD Codes: I10 - Essential (primary) hypertension SNOMED: 15248426 Assessment/Plan alvarado cultures broad spectrum abx Neuro and ID evaluation dvt prophylaxis. JESSE ZAVALA May 21, 2017 15:04
[2017-05-21] MEDS ORDERED: Morphine Sulfate 2mg/ml Inj IVP PRN (15:15)
[2017-05-21] MEDS ORDERED: Albuterol/Ipratropium 3ml neb HHN PRN (15:15)
[2017-05-21] MEDS ORDERED: Miralax 17gm pkt ORAL PRN (15:15)
[2017-05-21] MEDS ORDERED: Nitroglycerin Subl 0.4mg tab SL PRN (15:15)
[2017-05-21] MEDS ORDERED: Cefepime HCl 2 GM in D5W 55 ML IV SCH (16:00)
[2017-05-21 17:00] LABS: ALANINE AMINOTRANSFERASE 73 U/L (12-78); ALBUMIN/GLOBULIN RATIO 0.8 (1.0-2.7); ANION GAP 5 mmol/L (5-15); ASPARTATE AMINO TRANSFERASE 43 U/L (15-37); CALCIUM 8.7 MG/DL (8.5-10.1); CARBON DIOXIDE 32 MMOL/L (21-32); CHLORIDE 119 MMOL/L (98-107); CREATININE 1.6 MG/DL (0.55-1.30); GLOMERULAR FILTRATION RATE 43.7 mL/min (>60); MAGNESIUM 2.2 MG/DL (1.8-2.4); PHOSPHORUS 4.1 MG/DL (2.5-4.9); POTASSIUM 4.2 MMOL/L (3.5-5.1); SODIUM 156 MMOL/L (136-145); TOTAL PROTEIN 6.2 G/DL (6.4-8.2); URIC ACID 5.4 MG/DL (2.6-7.2)
[2017-05-21] MEDS ORDERED: Vancomycin 1.5 GM/D5W 250ML IVPB ONE (17:00)
[2017-05-21 17:06] LABS: OSMOLALITY SERUM 352 mOsm/kg (297-317)
[2017-05-21] MEDS ORDERED: HydrALAZINE 10mg Tab ORAL PRN (18:30)
--- NOTE | 2017-05-21 18:36 | Cardiology Report ---
APPROVED REPORT EKG Measurement Heart [id number] Sinus tachycardia Inferior infarct, age undetermined Abnormal ECG
[2017-05-21] MEDS ORDERED: dilTIAZem HCl 25mg/5ml Inj IV STA (20:23)
[2017-05-21] MEDS ORDERED: dilTIAZem HCl 25mg/5ml Inj IV PRN (20:30)
[2017-05-21] MEDS: Heparin 5000 units/ml inj SUBQ SCH (20:34)
[2017-05-21] MEDS ORDERED: Miralax 17gm pkt GT PRN (20:45)
[2017-05-21] MEDS ORDERED: Acetaminophen 650mg/20.3ml GT PRN (21:00)
[2017-05-22] VITALS (8 sets, daily range): BP systolic 128–161; BP diastolic 70–100
[2017-05-22] MEDS ORDERED: Fluconazole 100mg tab GT SCH (02:00)
[2017-05-22] MEDS: D5 1/2NS 1,000 ML IV SCH ×2 (02:01→10:43)
[2017-05-22 03:05] LABS: APPEARANCE,URINE CLEAR; KETONES,URINE NEGATIVE (NEGATIVE); NITRITE,URINE NEGATIVE (NEGATIVE); PH,URINE 6 (4.5-8.0); PROTEIN,URINE 3+ (NEGATIVE); UROBILINOGEN,URINE NORMAL MG/DL (0.0-1.0)
[2017-05-22 04:11] LABS: LEUKOCYTE ESTERASE ,URINE 2+ (NEGATIVE)
[2017-05-22 04:12] LABS: BACTERIA,URINE FEW /HPF; SQUAMOUS EPITHELIAL CELL,UR MODERATE /LPF (NONE/OCC); WBC,URINE 20-30 /HPF (0 - 0)
[2017-05-22 04:13] LABS: YEAST,URINE MANY /HPF
[2017-05-22 05:42] LABS: BASOPHILS % (AUTO) 0.7 % (0.0-2.0); EOSINOPHILS % (AUTO) 1.6 % (0.0-3.0); MEAN CORPUSCULAR HEMOGLOBIN 29.7 PG (27.0-31.0); MEAN CORPUSCULAR HGB CONC 31.2 G/DL (32.0-36.0); MEAN CORPUSCULAR VOLUME 95 FL (80-99); MEAN PLATELET VOLUME 7.9 FL (6.5-10.1); NEUTROPHILS % (AUTO) 81.8 % (45.0-75.0); PLATELET COUNT 264 K/UL (150-450); RED BLOOD COUNT 3.58 M/UL (4.70-6.10); RED CELL DISTRIBUTION WIDTH 16.2 % (11.6-14.8); WHITE BLOOD COUNT 10.9 K/UL (4.8-10.8)
[2017-05-22 06:03] LABS: ALANINE AMINOTRANSFERASE 57 U/L (12-78); ALBUMIN/GLOBULIN RATIO 0.7 (1.0-2.7); ANION GAP 7 mmol/L (5-15); ASPARTATE AMINO TRANSFERASE 25 U/L (15-37); CALCIUM 8.6 MG/DL (8.5-10.1); CARBON DIOXIDE 30 MMOL/L (21-32); CHLORIDE 117 MMOL/L (98-107); CREATININE 1.5 MG/DL (0.55-1.30); GLOMERULAR FILTRATION RATE 47.1 mL/min (>60); POTASSIUM 4.1 MMOL/L (3.5-5.1); SODIUM 153 MMOL/L (136-145); TOTAL PROTEIN 6.1 G/DL (6.4-8.2)
[2017-05-22] MEDS: NovoLOG Insulin Flexpen SUBQ SCH ×3 (06:40→17:33)
[2017-05-22] MEDS: Lisinopril 20mg tab GT SCH ×2 (08:35→17:31)
[2017-05-22] MEDS: Metoprolol Tartrate 50mg tab GT SCH ×2 (08:36→21:04)
[2017-05-22] MEDS: Aspirin Baby 81mg GT SCH (08:36)
[2017-05-22] MEDS: Heparin 5000 units/ml inj SUBQ SCH ×2 (08:37→21:08)
[2017-05-22] MEDS ORDERED: Vitamin D 1000 IU Tab ORAL SCH (09:00)
--- NOTE | 2017-05-22 10:54 | Consultation ---
History of Present Illness General Date patient seen: May 22, 2017 Time patient seen: 11:40 Chief Complaint: Altered Level of Consciousness Reason for Consultation: inpatient management Present Illness HPI 62 y/o M with hx of HTN, CKD, DM2, bipolar dz/schizophrenia, GERD, cardiac arrhythmia, Dementia, CAD with prior CA, MS, osteoporosis, asthma, VIt D def, hypothyroidism, HLD, dysphagia s/p GT, R MCA CVA with left hemiplegia, s/p trach [facility]. Afebrile,no leukocytosis upon admission,now mild to 10.9. Cr similar to upon discharge 1.8 at admission (1.7 upon discharge), now 1.5. U/a with pyuria but contaminated specimen (+mod sq cells), Started on IV Vanco, Cefepime x1, Fluconazole x3 d. Ucx growing yeast Patient recently admitted on 05/11-05/18 for acute onset of AMS and speech difficulties. CT brain, MRI brain wit no acute findings; treated with 5 days of empiric Unasyn but no evidence fo infection was found. Cx were negative. Allergies: Coded Allergies: No Known Allergies (Unverified , 05/11/17) Medication History Scheduled Amlodipine Besylate (Norvasc), 10 MG GT DAILY, (Reported) Ascorbic Acid* (Vitamin C*), 500 MG GT TWICE A DAY, (Reported) Aspirin* (Aspir 81*), 81 MG GT DAILY, (Reported) Docusate Sodium* (Colace*), 100 MG GT DAILY, (Reported) Doxazosin Mesylate* (Cardura*), 2 MG GT BID, (Reported) Heparin Sod,Porcine/0.9 % NaCl (Heparin 5,000 Unit/1,000 Ml-Ns), 5,000 UNIT SUBQ Q12HR, (Reported) Hydralazine Hcl* (Hydralazine Hcl*), 100 MG GT BID, (Reported) Hydralazine Hcl* (Hydralazine Hcl*), 50 MG GT EVERY 6 HOURS, (Reported) Isosorbide Dinitrate* (Isordil*), 10 MG GT EVERY 6 HOURS, (Reported) Levothyroxine Sodium* (Synthroid*), 50 MCG GT DAILY, (Reported) Lisinopril (Lisinopril*), 20 MG GT DAILY, (Reported) Metoprolol Tartrate* (Metoprolol Tartrate*), 125 MG GT EVERY 12 HOURS, (Reported ) Polyethylene Glycol 3350* (Miralax*), 17 GM GT DAILY, (Reported) Ranitidine Hcl* (Zantac*), 150 MG GT TWICE A DAY, (Reported) Scheduled PRN Acetaminophen (Tylenol), 325 MG GT Q6H PRN for Prn Pain/Headache/Temp > 101, ( Reported) Clonidine Hcl* (Catapres*), 0.1 MG ORAL EVERY 4 HOURS PRN for For High Blood Pressure, (Reported) Temazepam* (Restoril*), 15 MG ORAL BEDTIME PRN for Insomnia, (Reported) Miscellaneous Medications Nitroglycerin (Nitroglycerin), 0.4 MG SL, (Reported) Discontinued Medications Acetaminophen* (Tylenol Extra Strength*), 500 MG GT Q6H PRN for Mild Pain/Temp > 100.5, (Reported) Discontinued Reason: MD discontinued med Atorvastatin Calcium* (Lipitor*), 10 MG GT BEDTIME, (Reported) Discontinued Reason: MD discontinued med Bisacodyl (Dulcolax), 10 MG RC DAILY PRN for Constipation, (Reported) Discontinued Reason: MD discontinued med Cholecalciferol (Vitamin D3) (Vitamin D3), 5,000 UNIT GT weekly, (Reported) Discontinued Reason: MD discontinued med Clonidine (Clonidine), 1 EACH TD, (Reported) Discontinued Reason: MD discontinued med Diltiazem Hcl* (Cardizem*), Unknown Dose PO QID, (Reported) Discontinued Reason: MD discontinued med Ferrous Sulfate (Ferrous Sulfate), 220 MG GT BID, (Reported) Discontinued Reason: MD discontinued med Insulin Detemir (Levemir Flexpen), 24 SUBQ EVERY 12 HOURS, (Reported) Discontinued Reason: Medication dose changed Insulin Regular, Human (Humulin R), 0 SUBQ BEFORE MEALS AND HS, (Reported) Discontinued Reason: MD discontinued med Linagliptin (Tradjenta), 5 MG GT DAILY, (Reported) Discontinued Reason: MD discontinued med Lisinopril* (Lisinopril*), 40 MG GT DAILY, (Reported) Discontinued Reason: Medication dose changed Magnesium Hydroxide* (Milk Of Magnesia*), 30 ML GT BEDTIME PRN for Constipation, (Reported) Discontinued Reason: MD discontinued med Metformin Hcl* (Metformin Hcl*), 500 MG GT THREE TIMES A DAY, (Reported) Discontinued Reason: MD discontinued med Metoprolol Succinate* (Metoprolol Succinate*), 100 MG GT BID, (Reported) Discontinued Reason: Medication dose changed Multivitamin Liquid* (Multi-Delyn*), 5 ML GT DAILY, (Reported) Discontinued Reason: MD discontinued med Na Phos,M-B/Na Phos,Di-Ba* (Fleet Enema*), 133 ML RECTAL PRN, (Reported) Discontinued Reason: MD discontinued med Omeprazole (Omeprazole), 20 MG GT DAILY, (Reported) Discontinued Reason: MD discontinued med Patient History Healthcare decision maker Anna Carmen Resuscitation status Advanced Directive on File Patient History Narrative Pmhx as above: SHx reviewd Fhx non contributory Review of Systems ROS Narrative unable to obtain Physical Exam Physical Exam Narrative General Appearance: WD/WN Lines, tubes and drains: peripheral HEENT: normocephalic Neck: non-tender, normal alignment Respiratory/Chest: chest wall non-tender, lungs clear Breasts: no masses Cardiovascular/Chest: normal peripheral pulses Abdomen: normal bowel sounds Genitourinary/Rectal: normal genital exam, normal rectal exam Extremities: normal range of motion Skin Exam: normal pigmentation 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 Last 24 Hour Vital Signs Date Time Temp Pulse Resp B/P (MAP) Pulse Ox O2 Delivery O2 Flow Rate FiO2 05/22/17 08:36 90 150/80 05/22/17 08:35 150/80 05/22/17 08:34 90 18 150/80 05/22/17 07:43 94 05/22/17 04:00 99 05/22/17 04:00 98.0 63 20 135/82 95 Room Air 05/22/17 00:00 112 05/22/17 00:00 97.9 112 20 128/76 100 Nasal Cannula 2.0 05/21/17 20:32 133 140/70 05/21/17 20:00 179 05/21/17 20:00 97.7 95 24 149/74 99 Nasal Cannula 2.0 05/21/17 18:45 193/102 05/21/17 16:23 97.9 82 18 181/88 100 05/21/17 16:00 89 05/21/17 12:00 77 05/21/17 11:48 97.7 76 18 173/101 99 Intake and Output 05/22/17 05/23/17 19:00 07:00 Intake Total 620 ml Balance 620 ml Free Water 150 ml IV Total 400 ml Tube Feeding 70 ml Laboratory Tests Test 05/21/17 15:38 05/22/17 02:30 05/22/17 05:05 Sodium Level 156 MMOL/L (136-145) H 153 MMOL/L (136-145) H Potassium Level 4.2 MMOL/L (3.5-5.1) 4.1 MMOL/L (3.5-5.1) Chloride Level 119 MMOL/L (98-107) H 117 MMOL/L (98-107) H Carbon Dioxide Level 32 MMOL/L (21-32) 30 MMOL/L (21-32) Anion Gap 5 mmol/L (5-15) 7 mmol/L (5-15) Blood Urea Nitrogen 49 mg/dL (7-18) H 42 mg/dL (7-18) H Creatinine 1.6 MG/DL (0.55-1.30) H 1.5 MG/DL (0.55-1.30) H Estimat Glomerular Filtration Rate 43.7 mL/min (>60) 47.1 mL/min (>60) Glucose Level 234 MG/DL (74-106) #H 336 MG/DL (74-106) #H Osmolality 352 mOsm/kg (297-317) H Uric Acid 5.4 MG/DL (2.6-7.2) Calcium Level 8.7 MG/DL (8.5-10.1) 8.6 MG/DL (8.5-10.1) Phosphorus Level 4.1 MG/DL (2.5-4.9) Magnesium Level 2.2 MG/DL (1.8-2.4) Total Bilirubin 0.2 MG/DL (0.2-1.0) 0.2 MG/DL (0.2-1.0) Aspartate Amino Transf (AST/SGOT) 43 U/L (15-37) H 25 U/L (15-37) Alanine Aminotransferase (ALT/SGPT) 73 U/L (12-78) 57 U/L (12-78) Alkaline Phosphatase 100 U/L (46-116) 109 U/L (46-116) Total Creatine Kinase 1173 U/L (26-308) H Total Protein 6.2 G/DL (6.4-8.2) L 6.1 G/DL (6.4-8.2) L Albumin 2.7 G/DL (3.4-5.0) L 2.6 G/DL (3.4-5.0) L Globulin 3.5 g/dL 3.5 g/dL Albumin/Globulin Ratio 0.8 (1.0-2.7) L 0.7 (1.0-2.7) L Free Thyroxine 0.92 NG/DL (0.76-1.46) Urine Color Pale yellow Urine Appearance Clear Urine pH 6 (4.5-8.0) Urine Specific [place] 1.010 (1.005-1.035) Urine Protein 3+ (NEGATIVE) H Urine Glucose (UA) 3+ (NEGATIVE) H Urine Ketones Negative (NEGATIVE) Urine Occult Blood 1+ (NEGATIVE) H Urine Nitrite Negative (NEGATIVE) Urine Bilirubin Negative (NEGATIVE) Urine Urobilinogen Normal MG/DL (0.0-1.0) Urine Leukocyte Esterase 2+ (NEGATIVE) H Urine RBC 2-4 /HPF (0 - 0) H Urine WBC 20-30 /HPF (0 - 0) H Urine Squamous Epithelial Cells Moderate /LPF (NONE/OCC) H Urine Bacteria Few /HPF (NONE) Urine Yeast Many /HPF (NONE) H Urine Eosinophils Few Urine Osmolality 543 mOsm/kg (429-449) H Urine Random Sodium 73 MEQ/L (20-110) Urine Random Chloride 82 mmol/L (55-125) Urine Potassium Timed 39 mmol/L (12-62) Urine Opiates Screen Negative (NEGATIVE) Urine Barbiturates Screen Negative (NEGATIVE) Phencyclidine (PCP) Screen Negative (NEGATIVE) Urine Amphetamines Screen Negative (NEGATIVE) Urine Benzodiazepines Screen Negative (NEGATIVE) Urine Cocaine Screen Negative (NEGATIVE) Urine Marijuana (THC) Screen Negative (NEGATIVE) White Blood Count 10.9 K/UL (4.8-10.8) H Red Blood Count 3.58 M/UL (4.70-6.10) L Hemoglobin 10.6 G/DL (14.2-18.0) L Hematocrit 34.1 % (42.0-52.0) L Mean Corpuscular Volume 95 FL (80-99) Mean Corpuscular Hemoglobin 29.7 PG (27.0-31.0) Mean Corpuscular Hemoglobin Concent 31.2 G/DL (32.0-36.0) L Red Cell Distribution Width 16.2 % (11.6-14.8) H Platelet Count 264 K/UL (150-450) Mean Platelet Volume 7.9 FL (6.5-10.1) Neutrophils (%) (Auto) 81.8 % (45.0-75.0) H Lymphocytes (%) (Auto) 11.0 % (20.0-45.0) L Monocytes (%) (Auto) 5.0 % (1.0-10.0) Eosinophils (%) (Auto) 1.6 % (0.0-3.0) Basophils (%) (Auto) 0.7 % (0.0-2.0) Erythrocyte Sedimentation Rate 65 MM/HR (0-20) H Hemoglobin A1c 8.1 % (4.3-6.0) H Height (Feet): 5 Height (Inches): 11.00 Weight (Pounds): 160 Medications Current Medications Medications (Trade) Dose Ordered Sig/Willem Route PRN Reason Start Time Stop Time Status Last Admin Dose Admin Acetaminophen (Tylenol) 650 mg Q4H PRN GT Fever/Headache/Mild Pain 05/21/17 21:00 06/20/17 20:59 Albuterol/ Ipratropium (Albuterol/ Ipratropium) 3 ml Q4H PRN HHN Shortness of Breath 05/21/17 15:15 05/26/17 15:14 Aspirin (ASA) 81 mg DAILY GT 05/22/17 09:00 06/21/17 08:59 05/22/17 08:36 Dextrose (Dextrose 50%) STAT PRN IV Hypoglycemia 05/21/17 15:15 06/20/17 15:14 Dextrose (Dextrose 50%) STAT PRN IV Hypoglycemia 05/22/17 01:00 06/21/17 00:59 Dextrose/Sodium Chloride 1,000 ml @ 100 mls/hr Q10H IV 05/22/17 01:00 06/21/17 00:59 05/22/17 10:43 Diltiazem HCl (Cardizem) 20 mg Q2H PRN IV heart rate greater than 130 05/21/17 20:30 06/20/17 20:29 Fluconazole (Diflucan) 100 mg DAILY@0200 GT 05/22/17 02:00 05/24/17 02:01 05/22/17 02:01 Heparin Sodium (Porcine) (Heparin 5000 units/ml) 5,000 units EVERY 12 HOURS SUBQ 05/21/17 21:00 06/20/17 20:59 05/22/17 08:37 Hydralazine HCl (Apresoline) 20 mg Q4H PRN IV For High Blood Pressure 05/21/17 18:30 06/20/17 18:29 05/21/17 18:45 Insulin Aspart (NovoLOG) EVERY 6 HOURS SUBQ 05/22/17 06:00 06/21/17 05:59 05/22/17 06:40 Levothyroxine Sodium (Synthroid) 50 mcg DAILY@0630 GT 05/22/17 06:30 06/21/17 06:29 05/22/17 06:32 Lisinopril (Prinivil) 20 mg BID GT 05/22/17 09:00 06/21/17 08:59 05/22/17 08:35 Metoprolol Tartrate (Lopressor) 50 mg Q12HR GT 05/22/17 09:00 06/21/17 08:59 05/22/17 08:36 Morphine Sulfate (Morphine Sulfate) 2 mg Q4H PRN IVP Moderate Pain (Pain Scale 4-6) 05/21/17 15:15 05/28/17 15:14 Nitroglycerin (Ntg) 0.4 mg Q5M PRN SL Prn Chest Pain 05/21/17 15:15 06/20/17 15:14 Ondansetron HCl (Zofran) 4 mg Q6H PRN IVP Nausea & Vomiting 05/21/17 15:15 06/20/17 15:14 Polyethylene Glycol (Miralax) 17 gm DAILYPRN PRN GT Constipation 05/21/17 20:45 06/20/17 20:44 Ranitidine HCl (Zantac) 150 mg TWICE A DAY GT 05/22/17 09:00 06/21/17 08:59 05/22/17 08:36 Temazepam (Restoril) 15 mg HSPRN PRN GT Insomnia 05/21/17 20:45 05/28/17 20:44 Vancomycin HCl (Vanco rx to dose) 1 ea DAILY PRN MISC PER RX PROTOCOL 05/21/17 15:30 06/20/17 15:29 Vitamin D (Vitamin D) 5,000 intlu DAILY ORAL 05/22/17 09:00 06/21/17 08:59 05/22/17 08:36 Assessment/Plan Assessment/Plan Abx: IV Vanomcyin 05/21- Cefepime x1 05/21 Fluconazole 05/22 Assesment: AMS- (recent admission for AMS as well)- possibly multifactorial- acute delirium on chronic dementia due to metabolic derangements, vs progressive dementia. R/o infectious process component. ? baseline mental status. Patient appears to be the same as on prior admission per my evaluation -previous admission: - -CT head: No evidence of acute intracranial hemorrhage, mass effect or cortical edema. MRI may be obtained for more sensitive evaluation as clinically indicated. Cerebral and cerebellar atrophy greater than expected for age. Clinical correlation recommended. Mild periventricular hypoattenuation suggestive of chronic ischemic microvascular changes. Small area of right frontal encephalomalacia suggestive of old infarct. -UDS neg -TSH normal -Neg: HIV ag/ab, RPR, CrAg serum -Brain MRI: Chronic and age-related changes. Old right frontal infarct. Negative for acute intracranial bleed, mass effect, or acute infarct Borderline leukocytosis; afebrile -CXR : No acute process R/o UTI -u/a with pyuria but contaminated specimen (+mod sq cells); Ucx yeast so far ( colonizer) CKD?, ?Cr at baseline hx of VRE and MRSA colonization HTN, CKD, DM2, bipolar dz/schizophrenia, GERD, cardiac arrhythmia, Dementia, CAD with prior CA, MS, osteoporosis, asthma, VIt D def, hypothyroidism, HLD, dysphagia s/p GT, R MCA CVA with left hemiplegia, s/p trach Plan: -Obtain U/a with reflex (straight cath sample) -d/c IV Vancomcyin -Continue Cefepime pending repeat u/a and ucx -d/c fluconazole -if concern for ongoing AMS (different from his baseline), consider obtain LP to further evaluate -f/u cx -Monitor CBC/BMP ,temperatures Thank you for this consultation. Will continue to follow along with you. Discussed with JENY. Hellen Hutchison M.D. May 22, 2017 10:54
--- NOTE | 2017-05-22 12:22 | Pulmonology Progress Note ---
Assessment/Plan Problems: (1) Sepsis (2) Acute encephalopathy (3) ATN (acute tubular necrosis) (4) History of CVA (cerebrovascular accident) (5) Feeding by G-tube (6) Hypertension Assessment/Plan check cultures continue abx keep in teli check electrolytes iv fluids Subjective ROS Limited/Unobtainable: Yes Interval Events: open eyes, doens't communicate, looks comfortable Allergies: Coded Allergies: No Known Allergies (Unverified , 05/11/17) Objective Last 24 Hour Vital Signs Date Time Temp Pulse Resp B/P (MAP) Pulse Ox O2 Delivery O2 Flow Rate FiO2 05/22/17 12:00 97.7 80 21 161/84 96 05/22/17 08:36 90 150/80 05/22/17 08:35 150/80 05/22/17 08:34 90 18 150/80 05/22/17 07:43 94 05/22/17 07:28 Nasal Cannula 2.0 28 05/22/17 07:28 Nasal Cannula 2.0 28 05/22/17 07:28 Nasal Cannula 28 05/22/17 04:00 99 05/22/17 04:00 98.0 63 20 135/82 95 Room Air 05/22/17 00:00 112 05/22/17 00:00 97.9 112 20 128/76 100 Nasal Cannula 2.0 05/21/17 20:32 133 140/70 05/21/17 20:00 179 05/21/17 20:00 97.7 95 24 149/74 99 Nasal Cannula 2.0 05/21/17 18:45 193/102 05/21/17 16:23 97.9 82 18 181/88 100 05/21/17 16:00 89 Intake and Output 05/22/17 05/23/17 19:00 07:00 Intake Total 760 ml Balance 760 ml Free Water 150 ml IV Total 400 ml Tube Feeding 210 ml General Appearance: WD/WN HEENT: normocephalic, atraumatic Respiratory/Chest: accessory muscle use, crackles/rales Cardiovascular: normal peripheral pulses, normal rate Abdomen: normal bowel sounds, soft, non tender Genitourinary: normal external genitalia Extremities: no cyanosis 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, no motor/sensory deficits Lymphatic: no neck adenopathy, no groin adenopathy Musculoskeletal: normal muscle bulk Microbiology Date/Time Source Procedure Growth Status 05/21/17 05:50 Blood Blood Culture - Preliminary NO GROWTH AFTER 24 HOURS Resulted 05/21/17 05:35 Blood Blood Culture - Preliminary NO GROWTH AFTER 24 HOURS Resulted 05/21/17 06:30 Urine,Clean Catch Urine Culture - Preliminary YEAST Resulted Laboratory Tests 05/21/17 15:38: Sodium Level 156H, Potassium Level 4.2, Chloride Level 119H, Carbon Dioxide Level 32, Anion Gap 5, Blood Urea Nitrogen 49H, Creatinine 1.6H, Estimat Glomerular Filtration Rate 43.7, Glucose Level 234#H, Osmolality 352H, Uric Acid 5.4, Calcium Level 8.7, Phosphorus Level 4.1, Magnesium Level 2.2, Total Bilirubin 0.2, Aspartate Amino Transf (AST/SGOT) 43H, Alanine Aminotransferase ( ALT/SGPT) 73, Alkaline Phosphatase 100, Total Creatine Kinase 1173H, Total Protein 6.2L, Albumin 2.7L, Globulin 3.5, Albumin/Globulin Ratio 0.8L, Free Thyroxine 0.92 05/22/17 02:30: Urine Color Pale yellow, Urine Appearance Clear, Urine pH 6, Urine Specific [place] 1.010, Urine Protein 3+H, Urine Glucose (UA) 3+H, Urine Ketones Negative , Urine Occult Blood 1+H, Urine Nitrite Negative, Urine Bilirubin Negative, Urine Urobilinogen Normal, Urine Leukocyte Esterase 2+H, Urine RBC 2-4H, Urine WBC 20-30H, Urine Squamous Epithelial Cells ModerateH, Urine Bacteria Few, Urine Yeast ManyH, Urine Eosinophils Few, Urine Osmolality 543H, Urine Random Sodium 73, Urine Random Chloride 82, Urine Potassium Timed 39, Urine Opiates Screen Negative, Urine Barbiturates Screen Negative, Phencyclidine (PCP) Screen Negative, Urine Amphetamines Screen Negative, Urine Benzodiazepines Screen Negative, Urine Cocaine Screen Negative, Urine Marijuana (THC) Screen Negative 05/22/17 05:05: Sodium Level 153H, Potassium Level 4.1, Chloride Level 117H, Carbon Dioxide Level 30, Anion Gap 7, Blood Urea Nitrogen 42H, Creatinine 1.5H, Estimat Glomerular Filtration Rate 47.1, Glucose Level 336#H, Calcium Level 8.6, Total Bilirubin 0.2, Aspartate Amino Transf (AST/SGOT) 25, Alanine Aminotransferase ( ALT/SGPT) 57, Alkaline Phosphatase 109, Total Protein 6.1L, Albumin 2.6L, Globulin 3.5, Albumin/Globulin Ratio 0.7L, White Blood Count 10.9H, Red Blood Count 3.58L, Hemoglobin 10.6L, Hematocrit 34.1L, Mean Corpuscular Volume 95, Mean Corpuscular Hemoglobin 29.7, Mean Corpuscular Hemoglobin Concent 31.2L, Red Cell Distribution Width 16.2H, Platelet Count 264, Mean Platelet Volume 7.9 , Neutrophils (%) (Auto) 81.8H, Lymphocytes (%) (Auto) 11.0L, Monocytes (%) ( Auto) 5.0, Eosinophils (%) (Auto) 1.6, Basophils (%) (Auto) 0.7, Erythrocyte Sedimentation Rate 65H, Hemoglobin A1c 8.1H Current Medications Medications (Trade) Dose Ordered Sig/Willem Route PRN Reason Start Time Stop Time Status Last Admin Dose Admin Acetaminophen (Tylenol) 650 mg Q4H PRN GT Fever/Headache/Mild Pain 05/21/17 21:00 06/20/17 20:59 Albuterol/ Ipratropium (Albuterol/ Ipratropium) 3 ml Q4H PRN HHN Shortness of Breath 05/21/17 15:15 05/26/17 15:14 Aspirin (ASA) 81 mg DAILY GT 05/22/17 09:00 06/21/17 08:59 05/22/17 08:36 Cefepime HCl 1 gm/ Dextrose 55 ml @ 110 mls/hr EVERY 12 HOURS IVPB 05/22/17 13:30 05/29/17 13:29 Dextrose (Dextrose 50%) STAT PRN IV Hypoglycemia 05/21/17 15:15 06/20/17 15:14 Dextrose (Dextrose 50%) STAT PRN IV Hypoglycemia 05/22/17 01:00 06/21/17 00:59 Dextrose/Sodium Chloride 1,000 ml @ 100 mls/hr Q10H IV 05/22/17 01:00 06/21/17 00:59 05/22/17 10:43 Diltiazem HCl (Cardizem) 20 mg Q2H PRN IV heart rate greater than 130 05/21/17 20:30 06/20/17 20:29 Fluconazole (Diflucan) 100 mg DAILY@0200 GT 05/22/17 02:00 05/24/17 02:01 05/22/17 02:01 Heparin Sodium (Porcine) (Heparin 5000 units/ml) 5,000 units EVERY 12 HOURS SUBQ 05/21/17 21:00 06/20/17 20:59 05/22/17 08:37 Hydralazine HCl (Apresoline) 20 mg Q4H PRN IV For High Blood Pressure 05/21/17 18:30 06/20/17 18:29 05/21/17 18:45 Insulin Aspart (NovoLOG) EVERY 6 HOURS SUBQ 05/22/17 06:00 06/21/17 05:59 05/22/17 11:50 Levothyroxine Sodium (Synthroid) 50 mcg DAILY@0630 GT 05/22/17 06:30 06/21/17 06:29 05/22/17 06:32 Lisinopril (Prinivil) 20 mg BID GT 05/22/17 09:00 06/21/17 08:59 05/22/17 08:35 Metoprolol Tartrate (Lopressor) 50 mg Q12HR GT 05/22/17 09:00 06/21/17 08:59 05/22/17 08:36 Morphine Sulfate (Morphine Sulfate) 2 mg Q4H PRN IVP Moderate Pain (Pain Scale 4-6) 05/21/17 15:15 05/28/17 15:14 Nitroglycerin (Ntg) 0.4 mg Q5M PRN SL Prn Chest Pain 05/21/17 15:15 06/20/17 15:14 Ondansetron HCl (Zofran) 4 mg Q6H PRN IVP Nausea & Vomiting 05/21/17 15:15 06/20/17 15:14 Polyethylene Glycol (Miralax) 17 gm DAILYPRN PRN GT Constipation 05/21/17 20:45 06/20/17 20:44 Ranitidine HCl (Zantac) 150 mg TWICE A DAY GT 05/22/17 09:00 06/21/17 08:59 05/22/17 08:36 Temazepam (Restoril) 15 mg HSPRN PRN GT Insomnia 05/21/17 20:45 05/28/17 20:44 Vitamin D (Vitamin D) 5,000 intlu DAILY ORAL 05/22/17 09:00 06/21/17 08:59 05/22/17 08:36 JESSE ZAVALA May 22, 2017 12:22
--- NOTE | 2017-05-22 13:26 | Wound Care Consultation ---
Wound Assessment Wound Assessment #1: Wound Number: 1 Wound Present on Admission: Yes New Wound: No Status Change of Wound: No Wound Location Body Site Modif: right Wound Location Body Site: heel Wound Type: pressure ulcer Victor Manuel Test: Does not Victor Manuel Pressure Ulcer Stage: III - appearing stage 3 ,had history of Deep Tissue Injury. Wound Thickness: Full Thickness Wound Length: 1.5 Wound Width: 1.5 Wound Depth: 0.3 Percent of Wound [place]/Red: 100 Wound Drainage Description: Serosanguineous Wound Drainage Amount: Moderate Wound Drainage Odor: None/Absent Tissue Surrounding Wound: Macerated Wound General Appearance: Reddened, Draining Wound Assessment #2: Wound Number: 2 Wound Present on Admission: Yes New Wound: No Status Change of Wound: No Wound Location Body Site Modif: left Wound Location Body Site: heel Wound Type: scar - full thickness Victor Manuel Test: Does not Victor Manuel Wound Length: 2.0 Wound Width: 2.5 Percent of Wound [place]/Red: 100 Wound Drainage Amount: None Wound Drainage Odor: None/Absent Tissue Surrounding Wound: Intact Wound General Appearance: Reddened - scar tissue with red scar Wound Assessment #3: Wound Number: 3 Wound Present on Admission: Yes New Wound: No Status Change of Wound: No Wound Location Body Site: other - Sacrococcygeal Wound Type: pressure ulcer Victor Manuel Test: Does not Victor Manuel Pressure Ulcer Stage: Deep Tissue Injury - scattered deep tissue injuries Wound Thickness: Full Thickness Wound Length: 7.0 Wound Width: 10.0 Wound Depth: utd Percent of Wound Purple/Maroon: 100 - mid sacrococcygeal and scattered close in proximity Other Colors Identified: noted surrounding tissue with scattered scar tissue. at risk for skin break Wound Drainage Amount: None Wound Drainage Odor: None/Absent Tissue Surrounding Wound: Erythemic Wound General Appearance: Reddened - maroon. Wound Assessment #4: Wound Number: 4 Wound Present on Admission: Yes New Wound: No Status Change of Wound: No Wound Location Body Site Modif: left, right, lower Wound Location Body Site: leg Wound Type: scab - scattered dry scabs, red scars Victor Manuel Test: Does not Victor Manuel Percent of Wound [place]/Red: 50 - dry Percent of Wound Black/Brown: 50 - dry scabs Wound Drainage Amount: None Wound Drainage Odor: None/Absent Tissue Surrounding Wound: Intact Wound General Appearance: Open to air, Clean/Dry Wound Assessment #5: Wound Number: 5 Wound Present on Admission: Yes New Wound: No Status Change of Wound: No Wound Location Body Site Modif: right Wound Location Body Site: trochanter - extending to right thigh Wound Type: scar - with scattered redness. Victor Manuel Test: Does not Victor Manuel Wound Thickness: Full Thickness Wound Length: 30.0 Wound Width: 10.0 Percent of Wound [place]/Red: 100 Wound Drainage Amount: None Wound Drainage Odor: None/Absent Tissue Surrounding Wound: Intact Wound General Appearance: Reddened, Open to air, Clean/Dry Wound Assessment #6: Wound Number: 1 Wound Present on Admission: Yes New Wound: No Status Change of Wound: No Wound Location Body Site Modif: right Wound Location Body Site: toe - 2nd,3rd, 4th toe Wound Type: pressure ulcer Victor Manuel Test: Does not Victor Manuel Pressure Ulcer Stage: I Percent of Wound [place]/Red: 100 - scattered redness Wound Drainage Amount: None Wound Drainage Odor: None/Absent Tissue Surrounding Wound: Erythemic Wound General Appearance: Reddened, Open to air, Clean/Dry Wound Assessment #7: Wound Number: 7 Wound Present on Admission: Yes New Wound: No Status Change of Wound: No Wound Location Body Site Modif: left Wound Location Body Site: toe - 1st ,2nd Wound Type: pressure ulcer Victor Manuel Test: Does not Victor Manuel Pressure Ulcer Stage: I - scattered Percent of Wound [place]/Red: 100 Wound Drainage Amount: None Wound Drainage Odor: None/Absent Tissue Surrounding Wound: Erythemic Wound General Appearance: Reddened, Open to air, Clean/Dry Wound Comment #1 Right heel stage 3 pressure ulcer with full thickness scar to surrounding tissue. #2 Left heel full thickness scar tissue. #3 Sacrococcygeal scattered Deep tissue injury and scattered scar tissues. #4 Left and Right lower anterior leg scattered dry scabs with red scars. #5 Right Trochanter extending to thigh full thickness scar tissue with scattered redness. #6 Left anterior toes 1st and 2nd scattered redness stage 1. #7 Right anterior toes 2nd,3rd and 4th toes scattered redness stage 1 Recommendation. -Local wound care per protocol. -Apply low air loss SPR mattress for wound and skin management. -Turn and reposition. -Keep clean and dry. -Optimize nutrition -Apply heel protectors. -Offload affected sites. -Avoid shear and friction. -Assess and notify MD for any further change of condition noted to skin JEFFREY KIRKLAND May 22, 2017 13:26
[2017-05-22] MEDS ORDERED: Cefepime HCl 1 GM in D5W 55 ML IVPB SCH (13:30)
--- NOTE | 2017-05-22 15:08 | Consultation ---
Consult Note Consult Note known to me from his recent admission Is a 62-year-old male from skilled nursing. He has a history of CVA with hemiplegia, bedbound, feeding tube. Also history diabetes. He was admitted here recently for sepsis and just discharged back to skilled nursing. He was brought in for altered mental status. Onset today. Unable to get any history from patient. History is from his recent admission and skilled nursing note. Per nurse who took care of him last time, patient able to talk. Past Medical History: No History, Except For Hx Cardiac Problems: Yes - cardiac arrhythmia Hx Hypertension: Yes - atherosclerosis Hx Asthma: Yes Hx Diabetes: Yes - type 2 dm Hx Gastrointestinal Problems: Yes - vit d def,cholelyhiasis without obstruction Hx Neurological Problems: Yes - multiple sclerosis, osteoporosis, uti, encephalopathy Hx Cerebrovascular Accident: Yes - hemiplegia, hemiparesis right side Hx Dementia: Yes Hx Concentration Difficulty: Yes - failure to thrive Hx Speech Problem: Yes - DELAYED Hx Dysphasia: Yes examined- data reviewed Assessment/Plan - Sepsis - Acute encephalopathy - ATN (acute tubular necrosis) and dehydration and hypernatremia - History of CVA (cerebrovascular accident) - Feeding by G-tube - Hypothyroidism - Hypertension - DM Plan; Hydrate- monitor renal parameters avoid nephrotoxics adjust BP meds per consultants Per orders GARCÍA READ May 22, 2017 15:07
[2017-05-22 15:15] LABS: APPEARANCE,URINE TURBID; KETONES,URINE NEGATIVE (NEGATIVE); LEUKOCYTE ESTERASE ,URINE 2+ (NEGATIVE); NITRITE,URINE NEGATIVE (NEGATIVE); PH,URINE 6.5 (4.5-8.0); PROTEIN,URINE 3+ (NEGATIVE); UROBILINOGEN,URINE NORMAL MG/DL (0.0-1.0)
[2017-05-22 15:48] LABS: BACTERIA,URINE FEW /HPF; WBC,URINE 15-20 /HPF (0 - 0)
[2017-05-22 15:49] LABS: YEAST,URINE MANY /HPF
[2017-05-22] MEDS ORDERED: Vancomycin 1 GM in D5W 275 ML IVPB SCH (17:00)
[2017-05-22] MEDS: Vitamin A&D Oint 2oz Tube TOPIC SCH (21:01)
[2017-05-23] MEDS: NovoLOG Insulin Flexpen SUBQ SCH ×5 (00:02→23:27)
[2017-05-23 00:13] VITALS: BP 148/73
[2017-05-23 04:10] VITALS: BP 153/64
[2017-05-23 08:00] VITALS: BP 153/82
[2017-05-23 08:08] LABS: BASOPHILS % (AUTO) 0.7 % (0.0-2.0); EOSINOPHILS % (AUTO) 4.8 % (0.0-3.0); MEAN CORPUSCULAR HEMOGLOBIN 28.1 PG (27.0-31.0); MEAN CORPUSCULAR HGB CONC 29.4 G/DL (32.0-36.0); MEAN CORPUSCULAR VOLUME 96 FL (80-99); MEAN PLATELET VOLUME 6.9 FL (6.5-10.1); MONOCYTES % (AUTO) 5.6 % (1.0-10.0); PLATELET COUNT 229 K/UL (150-450); RED BLOOD COUNT 3.46 M/UL (4.70-6.10); RED CELL DISTRIBUTION WIDTH 15.6 % (11.6-14.8); WHITE BLOOD COUNT 7.9 K/UL (4.8-10.8)
--- NOTE | 2017-05-23 08:31 | Progress Note ---
DATE: 05/22/2017 NOTE: POOR AUDIO QUALITY SUBJECTIVE: The patient is awake, alert, and afebrile with insufficiently controlled high blood pressure. In particular, the patient is not under any distress. He does not have any new neurological finding, but except the patient is nonverbal. The question is whether the nonverbal represents neurological or psychiatric issue remained unsolved, but by patient's expressions and by attentiveness and based on behavior I have more inclined that this is an acute psychosis and aphonia rather than aphasia. He also made himself available to examination, but there is no change in facial expression. PHYSICAL EXAMINATION: VITAL SIGNS: Blood pressure is 150/100, his pulse is 100, respirations of 21, and temperature was 97.0. HEENT: Eyes were normal. ENT, mucous membranes were moist and intact. NECK: Supple with no JVD without lymph nodes. LUNGS: Clear. HEART: Normal sounds with regular heart beats. There is no tachycardia at rest. ABDOMEN: Soft and nontender with normal bowel sounds. EXTREMITIES: Warm without cyanosis, clubbing, or edema. LABORATORY DATA: Hemoglobin is 10.6, hematocrit 34.1, MCV of 95, WBC of 10.9, and platelets are 164,000. His ESR is 65. His BUN and creatinine are 42 and 1.5 respectively. Sodium is 153, potassium 4.1, chloride 112, and CO2 is 30. His A1c is 8.1. His albumin is 2.6 and total protein is 6.1. We sent a urine sample to 2 p.m. with the patient who has too numerous to count WBCs, progressively declining WBCs per high-power field. Yesterday, I stopped all antibiotics. He is currently only on Diflucan, therefor, the effect visible is from Diflucan alone. IMPRESSION AND PLAN: The patient has uncontrolled high blood pressure, aphonia, and cystitis. I do not see any evidence of sepsis. Currently, the patient's blood pressure is treated by lisinopril 20 mg b.i.d. He is on diltiazem IV on a p.r.n. basis. All his other hypertensive medications have been discontinued. The patient will receive diltiazem. He is on metoprolol 50 mg b.i.d. and amlodipine 5 mg daily, 10 mg q.4 h. The patient in the past did well on diltiazem 60 mg t.i.d. Therefore, amlodipine will be discontinued and diltiazem 60 mg will be initiated. Repeat laboratory tests will be done in the morning. Martina Morales M.D. DR: Keon JOB#: [id number] CC:
--- NOTE | 2017-05-23 08:31 | History and Physical Report ---
DATE OF ADMISSION: 05/21/2017 REASON FOR ADMISSION: This is one of the several admissions to [facility] of this 62-year-old patient for altered mental status and sepsis. HISTORY OF PRESENT ILLNESS: The patient was discharged from this hospital 3 days ago. On the day of discharge, the patient was afebrile and hemodynamically stable, but aphonic and unable to express himself. He was transferred to [facility] where he was admitted. Prior to his last admission, the patient was able to talk fluently. During the 48 hours, the patient was in the [facility]. He was afebrile. Initially, he had normal blood pressure, which progressively increased, became tachycardic, and was transferred back to [facility] because he was unable to communicate with the nursing staff, which was considered to be a new event. In the emergency room, the patient was afebrile with moderately elevated blood pressure of 161/90 with a heart rate of 103. He has no fever without leukocytosis. He has negative chest x-ray. However, his urinalysis showed too numerous to count WBC, yeast, and only few bacteria. It was nitrite negative with leukocyte esterase 3+, 3+ glucose, 3+ protein, and negative ketone. He was found to have urosepsis and started on broad-spectrum antibiotics. He was placed on vancomycin 1 g q.24 h. and cefepime 2 g q.24 h. Over the next few hours, he developed supraventricular tachycardia and progressively increasing blood pressure, both responded to Cardizem IV 20 mg at one time. At the time of his assessment, he is awake, alert, afebrile, and attentive, but unable to express any voice. He understands question by head nod indicating that he understands the question, but there is no attempt at phonation. PAST MEDICAL HISTORY: The patient had cerebrovascular accident several years ago associated with respiratory failure. He had to be intubated and placed on mechanical ventilation. He remained in the subacute unit for a while before he was successfully weaned from the respirator and from the G-tube, and remained orally fed for more than 2 years. One month ago, he lost his ability to swallow and the G-tube was reinserted, however, he was not aphasic and was minimally dysarthric and he was able to maintain conversation. In addition to the cardiovascular diagnosis, the patient also has chronic psychosis, for which with atypical antipsychotic. ALLERGIES: No known drug allergies. MEDICATIONS: As above. FAMILY HISTORY: Both parents have passed and their medical history is unknown. He has one sister in good health. He has no children. SOCIAL HISTORY: He is single. He was born in [place] and has been on SSI for many years. Prior to the appearance of his total disability, he was never employed. HABITS: The patient did not smoke, drink, or use illicit drugs. REVIEW OF SYSTEMS: The patient was unable to give any information regarding his state of health. PHYSICAL EXAMINATION: VITAL SIGNS: Blood pressure is 140/70, pulse is 114, respirations 18, and temperature 97.9. HEENT: Eyes were normal. Pupils were round, equal, and reacting to light. Sclerae were white. Conjunctivae were pink. Extraocular movements were normal. Temporal arteries were palpable bilaterally. There was no bilateral temporal wasting. Visual bang to confrontation. Neglect sign could not be assessed. ENT, mucous membranes were not dehydrated. Auditory canals were clear and tympanic membranes could not be visualized. Nasal cavity was not congested. Nasal septum was intact. Soft palate, pharynx, and uvula could not be visualized. Tongue was moist, midline, and normally papillated. NECK: Supple. There was no goiter. No mass. No lymphadenopathy. There was no JVD. No bruits. Carotid upstroke was 2+. LUNGS: Clear. HEART: PMI was in 5th left intercostal space in midclavicular line. Normal S1 and normal S2. There was no murmur. No arrhythmia. No S3. No S4. No pericardial rub. ABDOMEN: Soft and nontender without organomegaly. There were no masses palpable. Normal bowel sounds without bruits. There was no guarding. No rebound tenderness. No ascites. No hernia. No CVA tenderness. Liver span was 8 cm, mostly nontender. EXTREMITIES: No cyanosis, clubbing, or edema. Extremities were warm. NEUROLOGICAL: Reflexes in biceps, triceps, and brachioradialis were present. Patellar retinaculum was present. Plantars were in extension on the left and flexion on the right. Cranial nerves from II through XII were symmetric and equal. Cerebellar function, there was no tremor. No nystagmus. No extrapyramidal rigidity. Sensory exam to pinprick, cotton touch, and position are grossly normal. Motor strength was 2 to 3/5 against resistance on the left and 5/5 against resistance in the left upper extremity and left lower extremity. LABORATORY DATA: His hemoglobin is 10.2, hematocrit 32.3 with MCV of 95, WBC 8.9, and platelets 259,000. His BUN and creatinine are 49 and 1.6 respectively. Sodium is 146, potassium 4.2, chloride 119, CO2 is 32, and calcium is 8.7. His uric acid is 5.4. His total CK is 1173. His troponin was 0.052, which is negative. His albumin is 2.7. Globulin is 3.5. His total protein is 6.2. His glucose is 234. IMPRESSION: The patient developed acute rhabdomyolysis probably secondary to antipsychotic medication that was given to the patient in the skilled nursing, which lead to altered mental status. PLAN: At the present time, I do not see evidence of sepsis. CT scan of the brain will be repeated. Repeat laboratory tests will be done in the a.m. Total CK will be repeated as well. The patient was given Diflucan 100 mg b.i.d. for his . Martina Morales M.D. DR: DEONNA JOB#: [id number] CC:
[2017-05-23 09:00] LABS: ALANINE AMINOTRANSFERASE 58 U/L (12-78); ALBUMIN/GLOBULIN RATIO 0.7 (1.0-2.7); ANION GAP 5 mmol/L (5-15); ASPARTATE AMINO TRANSFERASE 23 U/L (15-37); CALCIUM 8.3 MG/DL (8.5-10.1); CARBON DIOXIDE 31 MMOL/L (21-32); CHLORIDE 114 MMOL/L (98-107); CREATININE 1.3 MG/DL (0.55-1.30); GLOMERULAR FILTRATION RATE 55.6 mL/min (>60); MAGNESIUM 1.9 MG/DL (1.8-2.4); PHOSPHORUS 3.1 MG/DL (2.5-4.9); POTASSIUM 3.3 MMOL/L (3.5-5.1); SODIUM 150 MMOL/L (136-145); THYROID STIMULATING HORMONE 2.354 uiU/mL (0.358-3.740); TOTAL PROTEIN 5.6 G/DL (6.4-8.2)
[2017-05-23] MEDS: Vitamin A&D Oint 2oz Tube TOPIC SCH ×2 (09:00→22:32)
[2017-05-23 09:29] LABS: CRP QUANT 6.3 mg/dL (0.00-0.90); URIC ACID 4.7 MG/DL (2.6-7.2)
[2017-05-23] MEDS ORDERED: 1/2 NS 1000ml IV ONE (10:54)
[2017-05-23] MEDS ORDERED: Tubing IV Secondary IV ONE (10:54)
[2017-05-23] MEDS ORDERED: D5 1/2NS 1000ml IV ONE (10:54)
[2017-05-23] MEDS: Lisinopril 20mg tab GT SCH ×2 (11:04→17:56)
[2017-05-23] MEDS: Aspirin Baby 81mg GT SCH (11:05)
[2017-05-23] MEDS: Metoprolol Tartrate 50mg tab GT SCH ×2 (11:05→17:57)
[2017-05-23] MEDS: Heparin 5000 units/ml inj SUBQ SCH ×2 (11:11→22:36)
--- NOTE | 2017-05-23 11:36 | Infectious Diseases Prog Note ---
Assessment/Plan Assessment/Plan Abx: IV Vanomcyin 05/21-05/22 Cefepime x1 05/21; 05/22- Fluconazole 05/22 Assesment: AMS- (recent admission for AMS as well)- possibly multifactorial- acute delirium on chronic dementia due to metabolic derangements, vs progressive dementia. R/o infectious process component. ? baseline mental status. Patient appears to be the same as on prior admission per my evaluation. Upon admission hypertensive which can also explain mental status changes. -previous admission: - -CT head: No evidence of acute intracranial hemorrhage, mass effect or cortical edema. MRI may be obtained for more sensitive evaluation as clinically indicated. Cerebral and cerebellar atrophy greater than expected for age. Clinical correlation recommended. Mild periventricular hypoattenuation suggestive of chronic ischemic microvascular changes. Small area of right frontal encephalomalacia suggestive of old infarct. -UDS neg -TSH normal -Neg: HIV ag/ab, RPR, CrAg serum -Brain MRI: Chronic and age-related changes. Old right frontal infarct. 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 Will continue to follow along with you. Discussed with RN. Subjective Allergies: Coded Allergies: No Known Allergies (Unverified , 05/11/17) Objective Vital Signs Last 24 Hour Vital Signs Date Time Temp Pulse Resp B/P (MAP) Pulse Ox O2 Delivery O2 Flow Rate FiO2 05/23/17 11:05 92 153/82 05/23/17 11:04 153/82 05/23/17 08:00 97.9 92 21 153/82 99 05/23/17 07:50 100 Nasal Cannula 2.0 28 05/23/17 07:50 89 18 Nasal Cannula 2.0 28 05/23/17 07:50 Nasal Cannula 2.0 28 05/23/17 04:10 97.5 80 20 153/64 99 Nasal Cannula 05/23/17 04:00 80 05/23/17 00:13 96.3 79 20 148/73 98 Nasal Cannula 05/23/17 00:00 79 05/22/17 21:45 71 139/70 05/22/17 21:04 92 175/81 05/22/17 20:14 80 18 Nasal Cannula 2.0 28 05/22/17 20:14 Nasal Cannula 2.0 28 05/22/17 20:14 99 Nasal Cannula 2.0 28 05/22/17 20:00 97.0 96 20 146/78 100 Room Air 05/22/17 20:00 89 05/22/17 17:31 150/100 05/22/17 16:14 100 05/22/17 16:04 90 150/100 05/22/17 16:00 97.0 89 21 157/100 94 05/22/17 14:04 77 05/22/17 13:36 85 18 140/70 100 Nasal Cannula 2.0 05/22/17 12:56 165/85 05/22/17 12:00 97.7 80 21 161/84 96 Height (Feet): 5 Height (Inches): 11.00 Weight (Pounds): 160 Objective General Appearance: WD/WN Lines, tubes and drains: peripheral HEENT: normocephalic Neck: non-tender, normal alignment Respiratory/Chest: chest wall non-tender, lungs clear Breasts: no masses Cardiovascular/Chest: normal peripheral pulses Abdomen: normal bowel sounds Genitourinary/Rectal: normal genital exam, normal rectal exam Extremities: normal range of motion Skin Exam: normal pigmentation 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 Microbiology Date/Time Source Procedure Growth Status 05/21/17 05:50 Blood Blood Culture - Preliminary NO GROWTH AFTER 24 HOURS Resulted 05/21/17 05:35 Blood Blood Culture - Preliminary NO GROWTH AFTER 24 HOURS Resulted 05/22/17 05:40 Wound Gram Stain - Final Resulted 05/22/17 05:40 Wound Wound Culture - Preliminary NO GROWTH Resulted 05/22/17 14:00 Urine,Clean Catch Urine Culture - Preliminary NO GROWTH Resulted 05/22/17 02:30 Urine,Clean Catch Urine Culture - Preliminary Resulted 05/21/17 06:30 Urine,Clean Catch Urine Culture - Final Scarlet Albicans Complete Laboratory Tests Test 05/22/17 14:00 05/23/17 07:10 Urine Color Pale yellow Urine Appearance Turbid Urine pH 6.5 (4.5-8.0) Urine Specific [place] 1.010 (1.005-1.035) Urine Protein 3+ (NEGATIVE) H Urine Glucose (UA) 3+ (NEGATIVE) H Urine Ketones Negative (NEGATIVE) Urine Occult Blood 2+ (NEGATIVE) H Urine Nitrite Negative (NEGATIVE) Urine Bilirubin Negative (NEGATIVE) Urine Urobilinogen Normal MG/DL (0.0-1.0) Urine Leukocyte Esterase 2+ (NEGATIVE) H Urine RBC 10-15 /HPF (0 - 0) H Urine WBC 15-20 /HPF (0 - 0) H Urine Squamous Epithelial Cells None /LPF (NONE/OCC) Urine Bacteria Few /HPF (NONE) Urine Yeast Many /HPF (NONE) H White Blood Count 7.9 K/UL (4.8-10.8) Red Blood Count 3.46 M/UL (4.70-6.10) L Hemoglobin 9.7 G/DL (14.2-18.0) L Hematocrit 33.0 % (42.0-52.0) L Mean Corpuscular Volume 96 FL (80-99) Mean Corpuscular Hemoglobin 28.1 PG (27.0-31.0) Mean Corpuscular Hemoglobin Concent 29.4 G/DL (32.0-36.0) L Red Cell Distribution Width 15.6 % (11.6-14.8) H Platelet Count 229 K/UL (150-450) Mean Platelet Volume 6.9 FL (6.5-10.1) Neutrophils (%) (Auto) 72.0 % (45.0-75.0) Lymphocytes (%) (Auto) 17.0 % (20.0-45.0) L Monocytes (%) (Auto) 5.6 % (1.0-10.0) Eosinophils (%) (Auto) 4.8 % (0.0-3.0) H Basophils (%) (Auto) 0.7 % (0.0-2.0) Sodium Level 150 MMOL/L (136-145) H Potassium Level 3.3 MMOL/L (3.5-5.1) L Chloride Level 114 MMOL/L (98-107) H Carbon Dioxide Level 31 MMOL/L (21-32) Anion Gap 5 mmol/L (5-15) Blood Urea Nitrogen 34 mg/dL (7-18) H Creatinine 1.3 MG/DL (0.55-1.30) Estimat Glomerular Filtration Rate 55.6 mL/min (>60) Glucose Level 202 MG/DL (74-106) #H Uric Acid 4.7 MG/DL (2.6-7.2) Calcium Level 8.3 MG/DL (8.5-10.1) L Phosphorus Level 3.1 MG/DL (2.5-4.9) Magnesium Level 1.9 MG/DL (1.8-2.4) Total Bilirubin 0.2 MG/DL (0.2-1.0) Aspartate Amino Transf (AST/SGOT) 23 U/L (15-37) Alanine Aminotransferase (ALT/SGPT) 58 U/L (12-78) Alkaline Phosphatase 110 U/L (46-116) C-Reactive Protein, Quantitative 6.3 mg/dL (0.00-0.90) H Pro-B-Type Natriuretic Peptide 1458 pg/mL (0-125) H Total Protein 5.6 G/DL (6.4-8.2) L Albumin 2.3 G/DL (3.4-5.0) L Globulin 3.3 g/dL Albumin/Globulin Ratio 0.7 (1.0-2.7) L Thyroid Stimulating Hormone (TSH) 2.354 uiU/mL (0.358-3.740) Current Medications Medications (Trade) Dose Ordered Sig/Willem Route PRN Reason Start Time Stop Time Status Last Admin Dose Admin Acetaminophen (Tylenol) 650 mg Q4H PRN GT Fever/Headache/Mild Pain 05/21/17 21:00 06/20/17 20:59 Albuterol/ Ipratropium (Albuterol/ Ipratropium) 3 ml Q4H PRN HHN Shortness of Breath 05/21/17 15:15 05/26/17 15:14 Amlodipine Besylate (Norvasc) 5 mg BID GT 05/23/17 18:00 06/22/17 08:59 Aspirin (ASA) 81 mg DAILY GT 05/22/17 09:00 06/21/17 08:59 05/23/17 11:05 Dextrose (Dextrose 50%) STAT PRN IV Hypoglycemia 05/22/17 01:00 06/21/17 00:59 Diltiazem HCl (Cardizem) 20 mg Q2H PRN IV heart rate greater than 130 05/21/17 20:30 06/20/17 20:29 Heparin Sodium (Porcine) (Heparin 5000 units/ml) 5,000 units EVERY 12 HOURS SUBQ 05/21/17 21:00 06/20/17 20:59 05/23/17 11:11 Hydralazine HCl (Apresoline) 10 mg Q4H PRN IV For High Blood Pressure 05/22/17 16:00 06/21/17 15:59 Insulin Aspart (NovoLOG) EVERY 6 HOURS SUBQ 05/22/17 06:00 06/21/17 05:59 05/23/17 06:04 Levothyroxine Sodium (Synthroid) 50 mcg DAILY@0630 GT 05/22/17 06:30 06/21/17 06:29 05/23/17 06:03 Lisinopril (Prinivil) 20 mg BID GT 05/22/17 09:00 06/21/17 08:59 05/23/17 11:04 Metoprolol Tartrate (Lopressor) 50 mg Q12HR GT 05/22/17 09:00 06/21/17 08:59 05/23/17 11:05 Morphine Sulfate (Morphine Sulfate) 2 mg Q4H PRN IVP Moderate Pain (Pain Scale 4-6) 05/21/17 15:15 05/28/17 15:14 Nitroglycerin (Ntg) 0.4 mg Q5M PRN SL Prn Chest Pain 05/21/17 15:15 06/20/17 15:14 Ondansetron HCl (Zofran) 4 mg Q6H PRN IVP Nausea & Vomiting 05/21/17 15:15 06/20/17 15:14 Polyethylene Glycol (Miralax) 17 gm DAILYPRN PRN GT Constipation 05/21/17 20:45 06/20/17 20:44 Ranitidine HCl (Zantac) 150 mg TWICE A DAY GT 05/22/17 09:00 06/21/17 08:59 05/23/17 11:03 Sodium Chloride 1,000 ml @ 75 mls/hr [id number] IV 05/22/17 16:00 06/21/17 15:59 05/23/17 05:26 Temazepam (Restoril) 15 mg HSPRN PRN GT Insomnia 05/21/17 20:45 05/28/17 20:44 Vitamin A/Vitamin D (A & D Oint) 1 applic EVERY 12 HOURS TOPIC 05/22/17 21:00 06/21/17 20:59 05/22/17 21:01 Hellen Hutchison M.D. May 23, 2017 11:36
--- NOTE | 2017-05-23 11:40 | Nephrology Progress Note ---
Assessment/Plan Problem List: (1) Sepsis (2) ATN (acute tubular necrosis) Assessment - Sepsis - Acute encephalopathy - ATN (acute tubular necrosis) and dehydration and hypernatremia - History of CVA (cerebrovascular accident) - Feeding by G-tube - Hypothyroidism - Hypertension - DM Plan Plan; Hydrate- monitor renal parameters avoid nephrotoxics adjust BP meds per consultants Per orders Subjective ROS Limited/Unobtainable: No Constitutional: Reports: malaise Objective Objective Last 24 Hour Vital Signs Date Time Temp Pulse Resp B/P (MAP) Pulse Ox O2 Delivery O2 Flow Rate FiO2 05/23/17 11:05 92 153/82 05/23/17 11:04 153/82 05/23/17 08:00 97.9 92 21 153/82 99 05/23/17 07:50 100 Nasal Cannula 2.0 28 05/23/17 07:50 89 18 Nasal Cannula 2.0 28 05/23/17 07:50 Nasal Cannula 2.0 28 05/23/17 04:10 97.5 80 20 153/64 99 Nasal Cannula 05/23/17 04:00 80 05/23/17 00:13 96.3 79 20 148/73 98 Nasal Cannula 05/23/17 00:00 79 05/22/17 21:45 71 139/70 05/22/17 21:04 92 175/81 05/22/17 20:14 80 18 Nasal Cannula 2.0 28 05/22/17 20:14 Nasal Cannula 2.0 28 05/22/17 20:14 99 Nasal Cannula 2.0 28 05/22/17 20:00 97.0 96 20 146/78 100 Room Air 05/22/17 20:00 89 05/22/17 17:31 150/100 05/22/17 16:14 100 05/22/17 16:04 90 150/100 05/22/17 16:00 97.0 89 21 157/100 94 05/22/17 14:04 77 05/22/17 13:36 85 18 140/70 100 Nasal Cannula 2.0 05/22/17 12:56 165/85 05/22/17 12:00 97.7 80 21 161/84 96 Intake and Output 05/23/17 05/24/17 19:00 07:00 Intake Total 75 ml Balance 75 ml IV Total 75 ml Laboratory Tests 05/22/17 14:00: Urine Color Pale yellow, Urine Appearance Turbid, Urine pH 6.5, Urine Specific Jennings 1.010, Urine Protein 3+H, Urine Glucose (UA) 3+H, Urine Ketones Negative , Urine Occult Blood 2+H, Urine Nitrite Negative, Urine Bilirubin Negative, Urine Urobilinogen Normal, Urine Leukocyte Esterase 2+H, Urine RBC 10-15H, Urine WBC 15-20H, Urine Squamous Epithelial Cells None, Urine Bacteria Few, Urine Yeast ManyH 05/23/17 07:10: White Blood Count 7.9, Red Blood Count 3.46L, Hemoglobin 9.7L, Hematocrit 33.0L , Mean Corpuscular Volume 96, Mean Corpuscular Hemoglobin 28.1, Mean Corpuscular Hemoglobin Concent 29.4L, Red Cell Distribution Width 15.6H, Platelet Count 229, Mean Platelet Volume 6.9, Neutrophils (%) (Auto) 72.0, Lymphocytes (%) (Auto) 17.0L, Monocytes (%) (Auto) 5.6, Eosinophils (%) (Auto) 4.8H, Basophils (%) (Auto) 0.7, Sodium Level 150H, Potassium Level 3.3L, Chloride Level 114H, Carbon Dioxide Level 31, Anion Gap 5, Blood Urea Nitrogen 34H, Creatinine 1.3, Estimat Glomerular Filtration Rate 55.6, Glucose Level 202# H, Uric Acid 4.7, Calcium Level 8.3L, Phosphorus Level 3.1, Magnesium Level 1.9 , Total Bilirubin 0.2, Aspartate Amino Transf (AST/SGOT) 23, Alanine Aminotransferase (ALT/SGPT) 58, Alkaline Phosphatase 110, C-Reactive Protein, Quantitative 6.3H, Pro-B-Type Natriuretic Peptide 1458H, Total Protein 5.6L, Albumin 2.3L, Globulin 3.3, Albumin/Globulin Ratio 0.7L, Thyroid Stimulating Hormone (TSH) 2.354 Height (Feet): 5 Height (Inches): 11.00 Weight (Pounds): 160 General Appearance: no apparent distress Objective no change GARCÍA READ May 23, 2017 11:40
[2017-05-23 12:00] VITALS: BP 134/66
--- NOTE | 2017-05-23 13:10 | Diagnostic Imaging Report ---
Indication: Abnormal renal function tests Technique: Grayscale and duplex images of the kidneys, retroperitoneum, and bladder were obtained. Comparison:05/11/2017 Findings: Right kidney measures 11.9 cm in length. Left kidney measures 12.1 cm in length. Both kidneys demonstrate normal echogenicity. As previously, there is mild prominence to the right renal pelvis, unchanged. No focal abnormality. Normal inferior vena cava. Bladder is now empty, contains a Cabrera catheter. Impression: Prominent right renal pelvis, unchanged since 05/11/2017, but no nandini hydronephrosis. Empty bladder, containing a Cabrera catheter
--- NOTE | 2017-05-23 14:30 | Pulmonology Progress Note ---
Assessment/Plan Problems: (1) Sepsis (2) Acute encephalopathy (3) ATN (acute tubular necrosis) (4) History of CVA (cerebrovascular accident) (5) Feeding by G-tube (6) Hypertension Assessment/Plan check cultures continue abx keep in teli check electrolytes bp better controlled Subjective ROS Limited/Unobtainable: No Interval Events: mental status has improved, opens eyes Allergies: Coded Allergies: No Known Allergies (Unverified , 05/11/17) Objective Last 24 Hour Vital Signs Date Time Temp Pulse Resp B/P (MAP) Pulse Ox O2 Delivery O2 Flow Rate FiO2 05/23/17 12:00 97.1 93 20 134/66 98 05/23/17 11:05 92 153/82 05/23/17 11:04 153/82 05/23/17 08:00 97.9 92 21 153/82 99 05/23/17 07:50 100 Nasal Cannula 2.0 28 05/23/17 07:50 89 18 Nasal Cannula 2.0 28 05/23/17 07:50 Nasal Cannula 2.0 28 05/23/17 04:10 97.5 80 20 153/64 99 Nasal Cannula 05/23/17 04:00 80 05/23/17 00:13 96.3 79 20 148/73 98 Nasal Cannula 05/23/17 00:00 79 05/22/17 21:45 71 139/70 05/22/17 21:04 92 175/81 05/22/17 20:14 80 18 Nasal Cannula 2.0 28 05/22/17 20:14 Nasal Cannula 2.0 28 05/22/17 20:14 99 Nasal Cannula 2.0 28 05/22/17 20:00 97.0 96 20 146/78 100 Room Air 05/22/17 20:00 89 05/22/17 17:31 150/100 05/22/17 16:14 100 05/22/17 16:04 90 150/100 05/22/17 16:00 97.0 89 21 157/100 94 Intake and Output 05/23/17 05/24/17 19:00 07:00 Intake Total 75 ml Balance 75 ml IV Total 75 ml General Appearance: WD/WN HEENT: normocephalic, anicteric Respiratory/Chest: chest wall non-tender, lungs clear, normal breath sounds Cardiovascular: normal peripheral pulses, normal rate Abdomen: normal bowel sounds, soft, non tender Extremities: no cyanosis Skin: no lesions Microbiology Date/Time Source Procedure Growth Status 05/21/17 05:50 Blood Blood Culture - Preliminary NO GROWTH AFTER 24 HOURS Resulted 05/21/17 05:35 Blood Blood Culture - Preliminary NO GROWTH AFTER 24 HOURS Resulted 05/22/17 05:40 Wound Gram Stain - Final Resulted 05/22/17 05:40 Wound Wound Culture - Preliminary NO GROWTH Resulted 05/22/17 14:00 Urine,Clean Catch Urine Culture - Preliminary NO GROWTH Resulted 05/22/17 02:30 Urine,Clean Catch Urine Culture - Preliminary Resulted 05/21/17 06:30 Urine,Clean Catch Urine Culture - Final Scarlet Albicans Complete Laboratory Tests 05/23/17 07:10: White Blood Count 7.9, Red Blood Count 3.46L, Hemoglobin 9.7L, Hematocrit 33.0L , Mean Corpuscular Volume 96, Mean Corpuscular Hemoglobin 28.1, Mean Corpuscular Hemoglobin Concent 29.4L, Red Cell Distribution Width 15.6H, Platelet Count 229, Mean Platelet Volume 6.9, Neutrophils (%) (Auto) 72.0, Lymphocytes (%) (Auto) 17.0L, Monocytes (%) (Auto) 5.6, Eosinophils (%) (Auto) 4.8H, Basophils (%) (Auto) 0.7, Sodium Level 150H, Potassium Level 3.3L, Chloride Level 114H, Carbon Dioxide Level 31, Anion Gap 5, Blood Urea Nitrogen 34H, Creatinine 1.3, Estimat Glomerular Filtration Rate 55.6, Glucose Level 202# H, Uric Acid 4.7, Calcium Level 8.3L, Phosphorus Level 3.1, Magnesium Level 1.9 , Total Bilirubin 0.2, Aspartate Amino Transf (AST/SGOT) 23, Alanine Aminotransferase (ALT/SGPT) 58, Alkaline Phosphatase 110, C-Reactive Protein, Quantitative 6.3H, Pro-B-Type Natriuretic Peptide 1458H, Total Protein 5.6L, Albumin 2.3L, Globulin 3.3, Albumin/Globulin Ratio 0.7L, Thyroid Stimulating Hormone (TSH) 2.354 Current Medications Medications (Trade) Dose Ordered Sig/Willem Route PRN Reason Start Time Stop Time Status Last Admin Dose Admin Acetaminophen (Tylenol) 650 mg Q4H PRN GT Fever/Headache/Mild Pain 05/21/17 21:00 06/20/17 20:59 Albuterol/ Ipratropium (Albuterol/ Ipratropium) 3 ml Q4H PRN HHN Shortness of Breath 05/21/17 15:15 05/26/17 15:14 Amlodipine Besylate (Norvasc) 5 mg BID GT 05/23/17 18:00 06/22/17 08:59 Aspirin (ASA) 81 mg DAILY GT 05/22/17 09:00 06/21/17 08:59 05/23/17 11:05 Dextrose (Dextrose 50%) STAT PRN IV Hypoglycemia 05/22/17 01:00 06/21/17 00:59 Diltiazem HCl (Cardizem) 20 mg Q2H PRN IV heart rate greater than 130 05/21/17 20:30 06/20/17 20:29 Heparin Sodium (Porcine) (Heparin 5000 units/ml) 5,000 units EVERY 12 HOURS SUBQ 05/21/17 21:00 06/20/17 20:59 05/23/17 11:11 Hydralazine HCl (Apresoline) 10 mg Q4H PRN IV For High Blood Pressure 05/22/17 16:00 06/21/17 15:59 Insulin Aspart (NovoLOG) EVERY 6 HOURS SUBQ 05/22/17 06:00 06/21/17 05:59 05/23/17 06:04 Levothyroxine Sodium (Synthroid) 50 mcg DAILY@0630 GT 05/22/17 06:30 06/21/17 06:29 05/23/17 06:03 Lisinopril (Prinivil) 20 mg BID GT 05/22/17 09:00 06/21/17 08:59 05/23/17 11:04 Metoprolol Tartrate (Lopressor) 50 mg Q12HR GT 05/22/17 09:00 06/21/17 08:59 05/23/17 11:05 Morphine Sulfate (Morphine Sulfate) 2 mg Q4H PRN IVP Moderate Pain (Pain Scale 4-6) 05/21/17 15:15 05/28/17 15:14 Nitroglycerin (Ntg) 0.4 mg Q5M PRN SL Prn Chest Pain 05/21/17 15:15 06/20/17 15:14 Ondansetron HCl (Zofran) 4 mg Q6H PRN IVP Nausea & Vomiting 05/21/17 15:15 06/20/17 15:14 Polyethylene Glycol (Miralax) 17 gm DAILYPRN PRN GT Constipation 05/21/17 20:45 06/20/17 20:44 Ranitidine HCl (Zantac) 150 mg TWICE A DAY GT 05/22/17 09:00 06/21/17 08:59 05/23/17 11:03 Sodium Chloride 1,000 ml @ 75 mls/hr [id number] IV 05/22/17 16:00 06/21/17 15:59 05/23/17 05:26 Temazepam (Restoril) 15 mg HSPRN PRN GT Insomnia 05/21/17 20:45 05/28/17 20:44 Vitamin A/Vitamin D (A & D Oint) 1 applic EVERY 12 HOURS TOPIC 05/22/17 21:00 06/21/17 20:59 05/23/17 09:00 JESSE ZAVALA May 23, 2017 14:29
[2017-05-23 16:00] VITALS: BP 156/80
[2017-05-23 20:00] VITALS: BP 168/95
[2017-05-24] VITALS: BP 150/77
[2017-05-24 04:00] VITALS: BP 127/74
[2017-05-24] MEDS: NovoLOG Insulin Flexpen SUBQ SCH ×3 (06:36→18:40)
[2017-05-24 08:00] VITALS: BP 153/78
[2017-05-24 08:09] LABS: BASOPHILS % (AUTO) 0.9 % (0.0-2.0); EOSINOPHILS % (AUTO) 5.4 % (0.0-3.0); LYMPHOCYTES % (AUTO) 22.7 % (20.0-45.0); MEAN CORPUSCULAR HEMOGLOBIN 29.3 PG (27.0-31.0); MEAN CORPUSCULAR HGB CONC 30.9 G/DL (32.0-36.0); MEAN CORPUSCULAR VOLUME 95 FL (80-99); MEAN PLATELET VOLUME 7.7 FL (6.5-10.1); MONOCYTES % (AUTO) 6.3 % (1.0-10.0); NEUTROPHILS % (AUTO) 64.6 % (45.0-75.0); PLATELET COUNT 241 K/UL (150-450); RED BLOOD COUNT 3.66 M/UL (4.70-6.10); RED CELL DISTRIBUTION WIDTH 15.4 % (11.6-14.8); WHITE BLOOD COUNT 5.8 K/UL (4.8-10.8)
--- NOTE | 2017-05-24 08:30 | Progress Note ---
DATE: 05/23/2017 NOTE: POOR AUDIO QUALITY SUBJECTIVE: The patient clinically has markedly improved. He started to verbalize full sentences with a sudden onset indicating that his problem previously was aphonia and not aphasia and due to psychiatric condition rather than the neurological one. PHYSICAL EXAMINATION: VITAL SIGNS: Blood pressure is 168/95, pulse is 78, respirations were 18, and temperature was 99 degrees. HEENT: Eyes were normal. ENT, mucous membranes were moist and intact. NECK: Supple with no JVD without lymph nodes. LUNGS: Clear. HEART: Normal sounds with regular heart beat. There is no tachycardia at rest. ABDOMEN: Soft, nontender with normal bowel sounds. Gastrostomy site is clean. EXTREMITIES: Warm without cyanosis, clubbing, or edema. LABORATORY AND DIAGNOSTIC DATA: His hemoglobin is 9.7, hematocrit 33.0 with MCV of 96, WBC of 7.9, and platelets are 229,000. His BUN and creatinine is 34 and 1.3 respectively. His BUN and creatinine have improved since 05/21/2017 when the BUN and creatinine were 49 and 1.6. On 05/22/2017, it was 42 and 1.5, and on 05/23/2017, 34 and 1.3. His sodium is 150, potassium 3.3, chloride 114, and CO2 is 31. His hypokalemia was corrected with 40 mEq p.o. His serum sodium is progressively improving by D5W half normal saline at per hour. His CRP is 6.3 and his proBNP is 1458. His albumin is 2.3 and total protein is 5.6. Renal ultrasound revealed right kidney 11.9 and left kidney 12.1 and bone scan demonstrated normal echogenicity. The right kidney and the right renal pelvis without focal abnormality. IMPRESSION AND PLAN: 1. The patient's medication for blood pressure currently is hydralazine 10 mg IV every four hours p.r.n. if blood pressure above 160. 2. The patient is on amlodipine 5 mg b.i.d., metoprolol 50 mg q.12 h., and lisinopril 20 mg b.i.d. and the patient is feeling better. Blood pressure is controlled. 3. his antibiotic resolved without any signs of leukocytosis. 4. Repeat laboratory tests will be done in the morning. Martina Morales M.D. DR: Serafin JOB#: [id number] CC:
[2017-05-24 08:31] LABS: ALANINE AMINOTRANSFERASE 51 U/L (12-78); ALBUMIN/GLOBULIN RATIO 0.7 (1.0-2.7); ANION GAP 6 mmol/L (5-15); ASPARTATE AMINO TRANSFERASE 20 U/L (15-37); CALCIUM 8.6 MG/DL (8.5-10.1); CARBON DIOXIDE 29 MMOL/L (21-32); CHLORIDE 113 MMOL/L (98-107); CREATININE 1.3 MG/DL (0.55-1.30); GLOMERULAR FILTRATION RATE 55.6 mL/min (>60); MAGNESIUM 1.8 MG/DL (1.8-2.4); POTASSIUM 3.6 MMOL/L (3.5-5.1); SODIUM 148 MMOL/L (136-145); TOTAL PROTEIN 5.9 G/DL (6.4-8.2)
[2017-05-24] MEDS: Lisinopril 20mg tab GT SCH ×2 (08:55→18:39)
[2017-05-24] MEDS: Metoprolol Tartrate 50mg tab GT SCH ×2 (08:55→21:11)
[2017-05-24] MEDS: Vitamin A&D Oint 2oz Tube TOPIC SCH ×2 (08:56→21:16)
[2017-05-24] MEDS: Aspirin Baby 81mg GT SCH (08:56)
[2017-05-24] MEDS: Heparin 5000 units/ml inj SUBQ SCH ×2 (09:07→21:12)
--- NOTE | 2017-05-24 11:20 | Infectious Diseases Prog Note ---
Assessment/Plan Assessment/Plan Abx: IV Vanomcyin 05/21-05/22 Cefepime x1 05/21; 05/22 Fluconazole 05/22 Assesment: AMS- (recent admission for AMS as well)- possibly multifactorial- acute delirium on chronic dementia due to metabolic derangements, vs progressive dementia. R/o infectious process component. ? baseline mental status. Patient appears to be the same as on prior admission per my evaluation. Upon admission hypertensive which can also explain mental status changes. -previous admission: - -CT head: No evidence of acute intracranial hemorrhage, mass effect or cortical edema. MRI may be obtained for more sensitive evaluation as clinically indicated. Cerebral and cerebellar atrophy greater than expected for age. Clinical correlation recommended. Mild periventricular hypoattenuation suggestive of chronic ischemic microvascular changes. Small area of right frontal encephalomalacia suggestive of old infarct. -UDS neg -TSH normal -Neg: HIV ag/ab, RPR, CrAg serum -Brain MRI: Chronic and age-related changes. Old right frontal infarct. 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 Will continue to follow along with you. Discussed with RN. Subjective Allergies: Coded Allergies: No Known Allergies (Unverified , 05/11/17) Subjective afebrile no leukocytosis noticed d/c of Cefepime on 05/22 Objective Vital Signs Last 24 Hour Vital Signs Date Time Temp Pulse Resp B/P (MAP) Pulse Ox O2 Delivery O2 Flow Rate FiO2 05/24/17 08:56 70 153/78 05/24/17 08:55 153/78 05/24/17 08:55 70 153/78 05/24/17 08:00 83 05/24/17 08:00 97.6 87 19 153/78 Nasal Cannula 3.0 05/24/17 07:20 81 18 Nasal Cannula 2.0 28 05/24/17 07:20 99 Nasal Cannula 2.0 28 05/24/17 07:20 Nasal Cannula 2.0 28 05/24/17 04:00 88 05/24/17 04:00 97.7 87 20 127/74 100 Nasal Cannula 05/24/17 00:00 98.1 87 20 150/77 100 Nasal Cannula 05/24/17 00:00 87 05/23/17 20:33 Nasal Cannula 2.0 28 05/23/17 20:32 98 Nasal Cannula 2.0 28 05/23/17 20:32 79 18 Nasal Cannula 2.0 28 05/23/17 20:00 99.0 78 20 168/95 100 Nasal Cannula 05/23/17 20:00 75 05/23/17 18:05 91 156/80 05/23/17 17:57 91 156/80 05/23/17 17:56 156/80 05/23/17 16:00 100 05/23/17 16:00 97.8 91 20 156/80 97 05/23/17 12:00 97.1 93 20 134/66 98 05/23/17 12:00 84 Height (Feet): 5 Height (Inches): 11.00 Weight (Pounds): 160 Objective General Appearance: WD/WN Lines, tubes and drains: peripheral HEENT: normocephalic Neck: non-tender, normal alignment Respiratory/Chest: chest wall non-tender, lungs clear Breasts: no masses Cardiovascular/Chest: normal peripheral pulses Abdomen: normal bowel sounds Genitourinary/Rectal: normal genital exam, normal rectal exam Extremities: normal range of motion Skin Exam: normal pigmentation 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: 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 Microbiology Date/Time Source Procedure Growth Status 05/22/17 05:40 Wound Gram Stain - Final Resulted 05/22/17 05:40 Wound Wound Culture - Preliminary Resulted 05/22/17 14:00 Urine,Clean Catch Urine Culture - Final Scarlet Albicans Complete 05/22/17 02:30 Urine,Clean Catch Urine Culture - Final Scarlet Albicans Complete Laboratory Tests Test 05/24/17 07:35 05/24/17 09:45 White Blood Count 5.8 K/UL (4.8-10.8) Red Blood Count 3.66 M/UL (4.70-6.10) L Hemoglobin 10.7 G/DL (14.2-18.0) L Hematocrit 34.7 % (42.0-52.0) L Mean Corpuscular Volume 95 FL (80-99) Mean Corpuscular Hemoglobin 29.3 PG (27.0-31.0) Mean Corpuscular Hemoglobin Concent 30.9 G/DL (32.0-36.0) L Red Cell Distribution Width 15.4 % (11.6-14.8) H Platelet Count 241 K/UL (150-450) Mean Platelet Volume 7.7 FL (6.5-10.1) Neutrophils (%) (Auto) 64.6 % (45.0-75.0) Lymphocytes (%) (Auto) 22.7 % (20.0-45.0) Monocytes (%) (Auto) 6.3 % (1.0-10.0) Eosinophils (%) (Auto) 5.4 % (0.0-3.0) H Basophils (%) (Auto) 0.9 % (0.0-2.0) Sodium Level 148 MMOL/L (136-145) H Potassium Level 3.6 MMOL/L (3.5-5.1) Chloride Level 113 MMOL/L (98-107) H Carbon Dioxide Level 29 MMOL/L (21-32) Anion Gap 6 mmol/L (5-15) Blood Urea Nitrogen 26 mg/dL (7-18) H Creatinine 1.3 MG/DL (0.55-1.30) Estimat Glomerular Filtration Rate 55.6 mL/min (>60) Glucose Level 171 MG/DL (74-106) H Calcium Level 8.6 MG/DL (8.5-10.1) Phosphorus Level 3.0 MG/DL (2.5-4.9) Magnesium Level 1.8 MG/DL (1.8-2.4) Total Bilirubin 0.3 MG/DL (0.2-1.0) Aspartate Amino Transf (AST/SGOT) 20 U/L (15-37) Alanine Aminotransferase (ALT/SGPT) 51 U/L (12-78) Alkaline Phosphatase 116 U/L (46-116) Total Protein 5.9 G/DL (6.4-8.2) L Albumin 2.4 G/DL (3.4-5.0) L Globulin 3.5 g/dL Albumin/Globulin Ratio 0.7 (1.0-2.7) L Erythrocyte Sedimentation Rate 78 MM/HR (0-20) H Current Medications Medications (Trade) Dose Ordered Sig/Willem Route PRN Reason Start Time Stop Time Status Last Admin Dose Admin Acetaminophen (Tylenol) 650 mg Q4H PRN GT Fever/Headache/Mild Pain 05/21/17 21:00 06/20/17 20:59 Albuterol/ Ipratropium (Albuterol/ Ipratropium) 3 ml Q4H PRN HHN Shortness of Breath 05/21/17 15:15 05/26/17 15:14 Amlodipine Besylate (Norvasc) 5 mg BID GT 05/23/17 18:00 06/22/17 08:59 05/24/17 08:56 Aspirin (ASA) 81 mg DAILY GT 05/22/17 09:00 06/21/17 08:59 05/24/17 08:56 Dextrose (Dextrose 50%) STAT PRN IV Hypoglycemia 05/22/17 01:00 06/21/17 00:59 Diltiazem HCl (Cardizem) 20 mg Q2H PRN IV heart rate greater than 130 05/21/17 20:30 06/20/17 20:29 Heparin Sodium (Porcine) (Heparin 5000 units/ml) 5,000 units EVERY 12 HOURS SUBQ 05/21/17 21:00 06/20/17 20:59 05/24/17 09:07 Hydralazine HCl (Apresoline) 10 mg Q4H PRN IV For High Blood Pressure 05/22/17 16:00 06/21/17 15:59 Insulin Aspart (NovoLOG) EVERY 6 HOURS SUBQ 05/22/17 06:00 06/21/17 05:59 12/7/17 06:36 Levothyroxine Sodium (Synthroid) 50 mcg DAILY@0630 GT 05/22/17 06:30 06/21/17 06:29 05/24/17 06:28 Lisinopril (Prinivil) 20 mg BID GT 05/22/17 09:00 06/21/17 08:59 05/24/17 08:55 Metoprolol Tartrate (Lopressor) 50 mg Q12HR GT 05/22/17 09:00 06/21/17 08:59 05/24/17 08:55 Morphine Sulfate (Morphine Sulfate) 2 mg Q4H PRN IVP Moderate Pain (Pain Scale 4-6) 05/21/17 15:15 05/28/17 15:14 Nitroglycerin (Ntg) 0.4 mg Q5M PRN SL Prn Chest Pain 05/21/17 15:15 06/20/17 15:14 Ondansetron HCl (Zofran) 4 mg Q6H PRN IVP Nausea & Vomiting 05/21/17 15:15 06/20/17 15:14 Polyethylene Glycol (Miralax) 17 gm DAILYPRN PRN GT Constipation 05/21/17 20:45 06/20/17 20:44 Ranitidine HCl (Zantac) 150 mg TWICE A DAY GT 05/22/17 09:00 06/21/17 08:59 05/24/17 08:56 Sodium Chloride 1,000 ml @ 75 mls/hr [id number] IV 05/22/17 16:00 06/21/17 15:59 05/24/17 08:00 Temazepam (Restoril) 15 mg HSPRN PRN GT Insomnia 05/21/17 20:45 05/28/17 20:44 Vitamin A/Vitamin D (A & D Oint) 1 applic EVERY 12 HOURS TOPIC 05/22/17 21:00 06/21/17 20:59 05/24/17 08:56 Hellen Hutchison M.D. May 24, 2017 11:20
[2017-05-24 12:23] VITALS: BP 141/70
--- NOTE | 2017-05-24 13:27 | Pulmonology Progress Note ---
Assessment/Plan Problems: (1) Sepsis (2) Acute encephalopathy (3) ATN (acute tubular necrosis) (4) History of CVA (cerebrovascular accident) (5) Feeding by G-tube (6) Hypertension Assessment/Plan check cultures continue abx bun/ creatinine decreasing check electrolytes bp better controlled dc planning Subjective ROS Limited/Unobtainable: No Interval Events: awake, comfortable Constitutional: Reports: no symptoms HEENT: Repors: no symptoms Allergies: Coded Allergies: No Known Allergies (Unverified , 05/11/17) Objective Last 24 Hour Vital Signs Date Time Temp Pulse Resp B/P (MAP) Pulse Ox O2 Delivery O2 Flow Rate FiO2 05/24/17 12:00 73 05/24/17 08:56 70 153/78 05/24/17 08:55 153/78 05/24/17 08:55 70 153/78 05/24/17 08:00 83 05/24/17 08:00 97.6 87 19 153/78 Nasal Cannula 3.0 05/24/17 07:20 81 18 Nasal Cannula 2.0 28 05/24/17 07:20 99 Nasal Cannula 2.0 28 05/24/17 07:20 Nasal Cannula 2.0 28 05/24/17 04:00 88 05/24/17 04:00 97.7 87 20 127/74 100 Nasal Cannula 05/24/17 00:00 98.1 87 20 150/77 100 Nasal Cannula 05/24/17 00:00 87 05/23/17 20:33 Nasal Cannula 2.0 28 05/23/17 20:32 98 Nasal Cannula 2.0 28 05/23/17 20:32 79 18 Nasal Cannula 2.0 28 05/23/17 20:00 99.0 78 20 168/95 100 Nasal Cannula 05/23/17 20:00 75 05/23/17 18:05 91 156/80 05/23/17 17:57 91 156/80 05/23/17 17:56 156/80 05/23/17 16:00 100 05/23/17 16:00 97.8 91 20 156/80 97 General Appearance: cachetic HEENT: normocephalic, atraumatic Respiratory/Chest: chest wall non-tender, lungs clear Cardiovascular: normal peripheral pulses, normal rate Abdomen: normal bowel sounds, soft, non tender Genitourinary: normal external genitalia Skin: no lesions Neurologic/Psychiatric: him specialists 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 normal, no motor/sensory deficits Lymphatic: no neck adenopathy Microbiology Date/Time Source Procedure Growth Status 05/22/17 05:40 Wound Gram Stain - Final Resulted 05/22/17 05:40 Wound Wound Culture - Preliminary Resulted 05/22/17 14:00 Urine,Clean Catch Urine Culture - Final Scarlet Albicans Complete 05/22/17 02:30 Urine,Clean Catch Urine Culture - Final Scarlet Albicans Complete Laboratory Tests 05/24/17 07:35: White Blood Count 5.8, Red Blood Count 3.66L, Hemoglobin 10.7L, Hematocrit 34.7L , Mean Corpuscular Volume 95, Mean Corpuscular Hemoglobin 29.3, Mean Corpuscular Hemoglobin Concent 30.9L, Red Cell Distribution Width 15.4H, Platelet Count 241, Mean Platelet Volume 7.7, Neutrophils (%) (Auto) 64.6, Lymphocytes (%) (Auto) 22.7, Monocytes (%) (Auto) 6.3, Eosinophils (%) (Auto) 5.4H, Basophils (%) (Auto) 0.9, Sodium Level 148H, Potassium Level 3.6, Chloride Level 113H, Carbon Dioxide Level 29, Anion Gap 6, Blood Urea Nitrogen 26H, Creatinine 1.3, Estimat Glomerular Filtration Rate 55.6, Glucose Level 171H , Calcium Level 8.6, Phosphorus Level 3.0, Magnesium Level 1.8, Total Bilirubin 0.3, Aspartate Amino Transf (AST/SGOT) 20, Alanine Aminotransferase (ALT/SGPT) 51, Alkaline Phosphatase 116, Total Protein 5.9L, Albumin 2.4L, Globulin 3.5, Albumin/Globulin Ratio 0.7L 05/24/17 09:45: Erythrocyte Sedimentation Rate 78H Current Medications Medications (Trade) Dose Ordered Sig/Willem Route PRN Reason Start Time Stop Time Status Last Admin Dose Admin Acetaminophen (Tylenol) 650 mg Q4H PRN GT Fever/Headache/Mild Pain 05/21/17 21:00 06/20/17 20:59 Albuterol/ Ipratropium (Albuterol/ Ipratropium) 3 ml Q4H PRN HHN Shortness of Breath 05/21/17 15:15 05/26/17 15:14 Amlodipine Besylate (Norvasc) 5 mg BID GT 05/23/17 18:00 06/22/17 08:59 05/24/17 08:56 Aspirin (ASA) 81 mg DAILY GT 05/22/17 09:00 06/21/17 08:59 05/24/17 08:56 Dextrose (Dextrose 50%) STAT PRN IV Hypoglycemia 05/22/17 01:00 06/21/17 00:59 Diltiazem HCl (Cardizem) 20 mg Q2H PRN IV heart rate greater than 130 05/21/17 20:30 06/20/17 20:29 Heparin Sodium (Porcine) (Heparin 5000 units/ml) 5,000 units EVERY 12 HOURS SUBQ 05/21/17 21:00 06/20/17 20:59 05/24/17 09:07 Hydralazine HCl (Apresoline) 10 mg Q4H PRN IV For High Blood Pressure 05/22/17 16:00 06/21/17 15:59 Insulin Aspart (NovoLOG) EVERY 6 HOURS SUBQ 05/22/17 06:00 06/21/17 05:59 05/24/17 12:44 Levothyroxine Sodium (Synthroid) 50 mcg DAILY@0630 GT 05/22/17 06:30 06/21/17 06:29 05/24/17 06:28 Lisinopril (Prinivil) 20 mg BID GT 05/22/17 09:00 06/21/17 08:59 05/24/17 08:55 Metoprolol Tartrate (Lopressor) 50 mg Q12HR GT 05/22/17 09:00 06/21/17 08:59 05/24/17 08:55 Morphine Sulfate (Morphine Sulfate) 2 mg Q4H PRN IVP Moderate Pain (Pain Scale 4-6) 05/21/17 15:15 05/28/17 15:14 Nitroglycerin (Ntg) 0.4 mg Q5M PRN SL Prn Chest Pain 05/21/17 15:15 06/20/17 15:14 Ondansetron HCl (Zofran) 4 mg Q6H PRN IVP Nausea & Vomiting 05/21/17 15:15 06/20/17 15:14 Polyethylene Glycol (Miralax) 17 gm DAILYPRN PRN GT Constipation 05/21/17 20:45 06/20/17 20:44 Ranitidine HCl (Zantac) 150 mg TWICE A DAY GT 05/22/17 09:00 06/21/17 08:59 05/24/17 08:56 Sodium Chloride 1,000 ml @ 75 mls/hr [id number] IV 05/22/17 16:00 06/21/17 15:59 05/24/17 08:00 Temazepam (Restoril) 15 mg HSPRN PRN GT Insomnia 05/21/17 20:45 05/28/17 20:44 Vitamin A/Vitamin D (A & D Oint) 1 applic EVERY 12 HOURS TOPIC 05/22/17 21:00 06/21/17 20:59 05/24/17 08:56 JESSE ZAVALA May 24, 2017 13:27
[2017-05-24 16:00] VITALS: BP 145/74
--- NOTE | 2017-05-24 16:30 | Nephrology Progress Note ---
Assessment/Plan Problem List: (1) Sepsis (2) ATN (acute tubular necrosis) Assessment - Sepsis - Acute encephalopathy - ATN (acute tubular necrosis) and dehydration and hypernatremia IMPROVED - History of CVA (cerebrovascular accident) - Feeding by G-tube - Hypothyroidism - Hypertension - DM Plan Plan; DC Hydrate- monitor renal parameters avoid nephrotoxics adjust BP meds per consultants Per orders Subjective ROS Limited/Unobtainable: No Objective Objective Last 24 Hour Vital Signs Date Time Temp Pulse Resp B/P (MAP) Pulse Ox O2 Delivery O2 Flow Rate FiO2 05/24/17 12:23 97.7 74 18 141/70 100 05/24/17 12:00 73 05/24/17 08:56 70 153/78 05/24/17 08:55 153/78 05/24/17 08:55 70 153/78 05/24/17 08:00 83 05/24/17 08:00 97.6 87 19 153/78 Nasal Cannula 3.0 05/24/17 07:20 81 18 Nasal Cannula 2.0 28 05/24/17 07:20 99 Nasal Cannula 2.0 28 05/24/17 07:20 Nasal Cannula 2.0 28 05/24/17 04:00 88 05/24/17 04:00 97.7 87 20 127/74 100 Nasal Cannula 05/24/17 00:00 98.1 87 20 150/77 100 Nasal Cannula 05/24/17 00:00 87 05/23/17 20:33 Nasal Cannula 2.0 28 05/23/17 20:32 98 Nasal Cannula 2.0 28 05/23/17 20:32 79 18 Nasal Cannula 2.0 28 05/23/17 20:00 99.0 78 20 168/95 100 Nasal Cannula 05/23/17 20:00 75 05/23/17 18:05 91 156/80 05/23/17 17:57 91 156/80 05/23/17 17:56 156/80 Laboratory Tests 05/24/17 07:35: White Blood Count 5.8, Red Blood Count 3.66L, Hemoglobin 10.7L, Hematocrit 34.7L , Mean Corpuscular Volume 95, Mean Corpuscular Hemoglobin 29.3, Mean Corpuscular Hemoglobin Concent 30.9L, Red Cell Distribution Width 15.4H, Platelet Count 241, Mean Platelet Volume 7.7, Neutrophils (%) (Auto) 64.6, Lymphocytes (%) (Auto) 22.7, Monocytes (%) (Auto) 6.3, Eosinophils (%) (Auto) 5.4H, Basophils (%) (Auto) 0.9, Sodium Level 148H, Potassium Level 3.6, Chloride Level 113H, Carbon Dioxide Level 29, Anion Gap 6, Blood Urea Nitrogen 26H, Creatinine 1.3, Estimat Glomerular Filtration Rate 55.6, Glucose Level 171H , Calcium Level 8.6, Phosphorus Level 3.0, Magnesium Level 1.8, Total Bilirubin 0.3, Aspartate Amino Transf (AST/SGOT) 20, Alanine Aminotransferase (ALT/SGPT) 51, Alkaline Phosphatase 116, Total Protein 5.9L, Albumin 2.4L, Globulin 3.5, Albumin/Globulin Ratio 0.7L 05/24/17 09:45: Erythrocyte Sedimentation Rate 78H Height (Feet): 5 Height (Inches): 11.00 Weight (Pounds): 160 General Appearance: no apparent distress Objective no change GARCÍA READ May 24, 2017 16:30
[2017-05-24 20:24] VITALS: BP 149/77
[2017-05-25 00:37] VITALS: BP 148/71
[2017-05-25] MEDS: NovoLOG Insulin Flexpen SUBQ SCH ×3 (01:57→12:21)
[2017-05-25 04:00] VITALS: BP 135/68
--- NOTE | 2017-05-25 05:45 | Progress Note ---
DATE: 05/24/2017 SUBJECTIVE: The patient is awake, alert, and afebrile with difficulty to communicate, but able to form a dysarthric sentence. PHYSICAL EXAMINATION: VITAL SIGNS: Blood pressure 149/77, his pulse is 77, respirations were 18, and temperature 97.7. HEENT: Eyes were normal. ENT, mucous membranes were moist and intact. NECK: Supple with no JVD without lymph nodes. Tracheostomy site is clean. LUNGS: Clear without rhonchi, rales, or wheezing. HEART: Normal S1 and normal S2. There was no murmur. No arrhythmia. No S3. No S4. No pericardial rub. ABDOMEN: Soft and nontender with normal bowel sounds. Gastrostomy site is clean. EXTREMITIES: Warm without cyanosis, clubbing, or edema. LABORATORY DATA: Hemoglobin is 10.7, hematocrit 34.7, MCV of 95, WBC of 5.8, and platelets are 231,000. His sed rate is 78. His BUN and creatinine is 26 and 1.3 respectively. His sodium is 148, potassium 3.6, chloride 113, and CO2 is 29. His calcium is 8.3. His phosphorus is 3. Magnesium is 1.8. SGOT, SGPT, and alkaline phosphatase are normal. His albumin is 2.4. Total protein is 5.9. IMPRESSION AND PLAN: The patient's blood pressure has currently improved. His hyponatremia has improved from 153 on 05/23/2017 to 148 on 05/24/2017. Repeat laboratory tests will be done in the morning, however, the patient can be discharged back to the extended care facility. Martina Morales M.D. DR: DEONNA JOB#: [id number] CC:
[2017-05-25] MEDS: Aspirin Baby 81mg GT SCH (08:04)
[2017-05-25] MEDS: Heparin 5000 units/ml inj SUBQ SCH (08:04)
[2017-05-25] MEDS: Metoprolol Tartrate 50mg tab GT SCH (08:04)
[2017-05-25] MEDS: Lisinopril 20mg tab GT SCH (08:05)
[2017-05-25 08:13] VITALS: BP 155/73
--- NOTE | 2017-05-25 10:02 | Diagnostic Imaging Report ---
Indication: Altered mental status Technique: Continuous helical CT scanning of the head was performed utilizing automated exposure control without intravenous contrast material. Axial and coronal reconstructions were obtained. Comparison: CT of the head 05/11/2017; MRI of the brain 05/17/2017 CT dose: Total DLP 1552 mGycm; CTDI vol 70.5 mGy Findings: There is no acute intracranial hemorrhage, mass effect or midline shift. Chronic right frontal infarct is unchanged. The ventricles, cisterns and sulci are prominent, consistent with atrophy; the size and configuration the ventricular system is stable when compared to the prior exam. Cerebellar atrophy is again noted. Foci of low attenuation noted within the periventricular white matter, nonspecific finding likely sequela of chronic microvascular ischemia. The sella is grossly unremarkable. There unchanged under pneumatization of the right mastoid air cells. Left mastoid air cells and paranasal sinuses are clear. No depressed skull fracture. No focal lesions of the bony calvarium or soft tissues of the scalp are seen. Impression: No evidence of acute intracranial hemorrhage, mass effect or cortical edema. MRI may be obtained for more sensitive evaluation as clinically indicated. Stable chronic infarct in the right frontal lobe. Cerebral and cerebellar atrophy greater than expected for age. Clinical correlation recommended. Mild periventricular hypoattenuation suggestive of chronic ischemic microvascular changes. The CT scanner at [facility] is accredited by the [employer] and the scans are performed using protocols designed to limit radiation exposure to as low as reasonably achievable to attain images of sufficient resolution adequate for diagnostic evaluation.
[2017-05-25] MEDS: Vitamin A&D Oint 2oz Tube TOPIC SCH (10:16)
[2017-05-25 10:18] LABS: BASOPHILS % (AUTO) 0.6 % (0.0-2.0); EOSINOPHILS % (AUTO) 6.1 % (0.0-3.0); LYMPHOCYTES % (AUTO) 16.9 % (20.0-45.0); MEAN CORPUSCULAR HEMOGLOBIN 29.3 PG (27.0-31.0); MEAN CORPUSCULAR VOLUME 94 FL (80-99); MONOCYTES % (AUTO) 6.1 % (1.0-10.0); NEUTROPHILS % (AUTO) 70.3 % (45.0-75.0); PLATELET COUNT 232 K/UL (150-450); RED BLOOD COUNT 3.48 M/UL (4.70-6.10); RED CELL DISTRIBUTION WIDTH 15.4 % (11.6-14.8); WHITE BLOOD COUNT 5.8 K/UL (4.8-10.8)
[2017-05-25 10:40] LABS: ANION GAP 4 mmol/L (5-15); CALCIUM 8.8 MG/DL (8.5-10.1); CARBON DIOXIDE 31 MMOL/L (21-32); CHLORIDE 110 MMOL/L (98-107); CREATININE 1.2 MG/DL (0.55-1.30); GLOMERULAR FILTRATION RATE > 60 mL/min (>60); POTASSIUM 4.1 MMOL/L (3.5-5.1); SODIUM 145 MMOL/L (136-145)
[2017-05-25] MEDS ORDERED: HYDRALAZIN20 MG/1 ML IV (10:57)
[2017-05-25] MEDS ORDERED: NOVOLOG100 UNIT/4 SQ (10:57)
[2017-05-25] MEDS ORDERED: LISINOPRIL10 MG ORAL (10:58)
[2017-05-25] MEDS ORDERED: METOPROLOL TART50 MG ORAL (10:58)
[2017-05-25] MEDS ORDERED: DILTIAZEM H5 MG/1 ML IV (11:00)
[2017-05-25 11:58] VITALS: BP 134/59
[2017-05-25] MEDS ORDERED: Pneumococcal Vaccine 25mcg/0.5ml IM ONE (12:00)
[2017-05-25] MEDS ORDERED: Flu Vaccine Quadrivalent 0.5ml IM ONE (12:00)
[2017-05-25] MEDS ORDERED: 1/2 NS 1000ml IV ONE (13:14)
--- NOTE | 2017-05-25 13:28 | Nephrology Progress Note ---
Assessment/Plan Problem List: (1) Sepsis (2) ATN (acute tubular necrosis) Assessment - Sepsis - Acute encephalopathy - ATN (acute tubular necrosis) and dehydration and hypernatremia IMPROVED - History of CVA (cerebrovascular accident) - Feeding by G-tube - Hypothyroidism - Hypertension - DM Plan Plan; DC Hydrate- monitor renal parameters avoid nephrotoxics adjust BP meds per consultants Per orders Subjective ROS Limited/Unobtainable: No Objective Objective Last 24 Hour Vital Signs Date Time Temp Pulse Resp B/P (MAP) Pulse Ox O2 Delivery O2 Flow Rate FiO2 05/25/17 11:58 97.5 72 20 134/59 100 05/25/17 08:13 97.2 80 20 155/73 96 05/25/17 08:05 80 155/70 05/25/17 08:05 155/73 05/25/17 08:04 80 155/73 05/25/17 08:00 80 18 Nasal Cannula 2.0 28 05/25/17 08:00 96 Nasal Cannula 2.0 28 05/25/17 08:00 Nasal Cannula 2.0 28 05/25/17 07:55 79 05/25/17 04:00 75 05/25/17 04:00 98.1 75 18 135/68 100 Room Air 05/25/17 00:37 97.9 72 18 148/71 97 Room Air 05/25/17 00:00 70 05/24/17 21:11 77 149/77 05/24/17 20:24 97.7 77 18 149/77 95 Room Air 05/24/17 20:00 76 05/24/17 19:37 83 18 Nasal Cannula 2.0 28 05/24/17 19:37 Nasal Cannula 2.0 28 05/24/17 19:37 99 Nasal Cannula 2.0 28 05/24/17 18:39 78 145/74 05/24/17 18:39 145/74 05/24/17 16:00 98.2 76 19 145/74 100 Nasal Cannula 3.0 05/24/17 16:00 75 Laboratory Tests 05/25/17 10:05: White Blood Count 5.8, Red Blood Count 3.48L, Hemoglobin 10.2L, Hematocrit 32.8L , Mean Corpuscular Volume 94, Mean Corpuscular Hemoglobin 29.3, Mean Corpuscular Hemoglobin Concent 31.0L, Red Cell Distribution Width 15.4H, Platelet Count 232, Mean Platelet Volume 8.0, Neutrophils (%) (Auto) 70.3, Lymphocytes (%) (Auto) 16.9L, Monocytes (%) (Auto) 6.1, Eosinophils (%) (Auto) 6.1H, Basophils (%) (Auto) 0.6, Sodium Level 145, Potassium Level 4.1, Chloride Level 110H, Carbon Dioxide Level 31, Anion Gap 4L, Blood Urea Nitrogen 31H, Creatinine 1.2, Estimat Glomerular Filtration Rate > 60, Glucose Level 244H, Calcium Level 8.8 Height (Feet): 5 Height (Inches): 11.00 Weight (Pounds): 160 General Appearance: no apparent distress Objective no change GARCÍA READ May 25, 2017 13:28
--- NOTE | 2017-05-25 13:54 | Infectious Diseases Prog Note ---
Assessment/Plan Assessment/Plan Abx: IV Vanomcyin 05/21-05/22 Cefepime x1 05/21; 05/22 Fluconazole 05/22 Assesment: AMS- (recent admission for AMS as well)- possibly multifactorial- acute delirium on chronic dementia due to metabolic derangements, vs progressive dementia. R/o infectious process component. ? baseline mental status. Patient appears to be the same as on prior admission per my evaluation. Upon admission hypertensive which can also explain mental status changes. -05/22 CT head: No evidence of acute intracranial hemorrhage, mass effect or cortical edema. MRI may be obtained for more sensitive evaluation as clinically indicated. Stable chronic infarct in the right frontal lobe. Cerebral and cerebellar atrophy greater than expected for age. Clinical correlation recommended. Mild periventricular hypoattenuation suggestive of chronic ischemic microvascular changes. -previous admission: - -CT head: No evidence of acute intracranial hemorrhage, mass effect or cortical edema. MRI may be obtained for more sensitive evaluation as clinically indicated. Cerebral and cerebellar atrophy greater than expected for age. Clinical correlation recommended. Mild periventricular hypoattenuation suggestive of chronic ischemic microvascular changes. Small area of right frontal encephalomalacia suggestive of old infarct. -UDS neg -TSH normal -Neg: HIV ag/ab, RPR, CrAg serum, FTA-ab -Brain MRI: Chronic and age-related changes. Old right frontal infarct. Negative for acute intracranial bleed, mass effect, or acute infarct Borderline leukocytosis; afebrile- resolved -CXR : No acute process R/o UTI- Ucx with no bacterial growth -u/a with pyuria but contaminated specimen (+mod sq cells); Ucx yeast ( colonizer); on repaet u/a (uc [facility] cath): wbc 10-15; nit -, leuk +2; Ucx yeast ( colonizer) BOOGIE on ?CKD, improving R heel pressure ulcer stage II- no signs of infections -cx +2 S. aureus (sensi pending)- colonizer as no infection hx of VRE and MRSA colonization HTN, CKD, DM2, bipolar dz/schizophrenia, GERD, cardiac arrhythmia, Dementia, CAD with prior NV, MS, osteoporosis, asthma, VIt D def, hypothyroidism, HLD, dysphagia s/p GT, R MCA CVA with left hemiplegia, s/p trach Plan: -Continue to monitor off abx -05/22 SP Cefepime #2 -/ SP Fluconazoe x1 and IV Vanco #2 -if concern for ongoing AMS (different from his baseline), consider obtain LP to further evaluate -f/u cx -Monitor CBC/BMP ,temperatures -awaiting discharge Thank you for this consultation. Will continue to follow along with you. Discussed with RN. Subjective Allergies: Coded Allergies: No Known Allergies (Unverified , 05/11/17) Subjective afebrile no leukocytosis off abx Objective Vital Signs Last 24 Hour Vital Signs Date Time Temp Pulse Resp B/P (MAP) Pulse Ox O2 Delivery O2 Flow Rate FiO2 05/25/17 11:58 97.5 72 20 134/59 100 05/25/17 08:13 97.2 80 20 155/73 96 05/25/17 08:05 80 155/70 05/25/17 08:05 155/73 05/25/17 08:04 80 155/73 05/25/17 08:00 80 18 Nasal Cannula 2.0 28 05/25/17 08:00 96 Nasal Cannula 2.0 28 05/25/17 08:00 Nasal Cannula 2.0 28 05/25/17 07:55 79 05/25/17 04:00 75 05/25/17 04:00 98.1 75 18 135/68 100 Room Air 05/25/17 00:37 97.9 72 18 148/71 97 Room Air 05/25/17 00:00 70 05/24/17 21:11 77 149/77 05/24/17 20:24 97.7 77 18 149/77 95 Room Air 05/24/17 20:00 76 05/24/17 19:37 83 18 Nasal Cannula 2.0 28 05/24/17 19:37 Nasal Cannula 2.0 28 05/24/17 19:37 99 Nasal Cannula 2.0 28 05/24/17 18:39 78 145/74 05/24/17 18:39 145/74 05/24/17 16:00 98.2 76 19 145/74 100 Nasal Cannula 3.0 05/24/17 16:00 75 Height (Feet): 5 Height (Inches): 11.00 Weight (Pounds): 160 Objective General Appearance: WD/WN Lines, tubes and drains: peripheral HEENT: normocephalic Neck: non-tender, normal alignment Respiratory/Chest: chest wall non-tender, lungs clear Breasts: no masses Cardiovascular/Chest: normal peripheral pulses Abdomen: normal bowel sounds Genitourinary/Rectal: normal genital exam, normal rectal exam Extremities: normal range of motion Skin Exam: normal pigmentation Neurologic: seed laboratory assistant 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 normal Microbiology Date/Time Source Procedure Growth Status 05/22/17 14:00 Urine,Clean Catch Urine Culture - Final Scarlet Albicans Complete Laboratory Tests Test 05/25/17 10:05 White Blood Count 5.8 K/UL (4.8-10.8) Red Blood Count 3.48 M/UL (4.70-6.10) L Hemoglobin 10.2 G/DL (14.2-18.0) L Hematocrit 32.8 % (42.0-52.0) L Mean Corpuscular Volume 94 FL (80-99) Mean Corpuscular Hemoglobin 29.3 PG (27.0-31.0) Mean Corpuscular Hemoglobin Concent 31.0 G/DL (32.0-36.0) L Red Cell Distribution Width 15.4 % (11.6-14.8) H Platelet Count 232 K/UL (150-450) Mean Platelet Volume 8.0 FL (6.5-10.1) Neutrophils (%) (Auto) 70.3 % (45.0-75.0) Lymphocytes (%) (Auto) 16.9 % (20.0-45.0) L Monocytes (%) (Auto) 6.1 % (1.0-10.0) Eosinophils (%) (Auto) 6.1 % (0.0-3.0) H Basophils (%) (Auto) 0.6 % (0.0-2.0) Sodium Level 145 MMOL/L (136-145) Potassium Level 4.1 MMOL/L (3.5-5.1) Chloride Level 110 MMOL/L (98-107) H Carbon Dioxide Level 31 MMOL/L (21-32) Anion Gap 4 mmol/L (5-15) L Blood Urea Nitrogen 31 mg/dL (7-18) H Creatinine 1.2 MG/DL (0.55-1.30) Estimat Glomerular Filtration Rate > 60 mL/min (>60) Glucose Level 244 MG/DL (74-106) H Calcium Level 8.8 MG/DL (8.5-10.1) Hellen Hutchison M.D. May 25, 2017 13:54
--- NOTE | 2017-05-25 15:06 | Pulmonology Progress Note ---
Assessment/Plan Problems: (1) Sepsis (2) Acute encephalopathy (3) ATN (acute tubular necrosis) (4) History of CVA (cerebrovascular accident) (5) Feeding by G-tube (6) Hypertension Assessment/Plan improving continue abx bun/ creatinine decreasing check electrolytes bp better controlled dc to [facility] Subjective ROS Limited/Unobtainable: No Allergies: Coded Allergies: No Known Allergies (Unverified , 05/11/17) Objective Last 24 Hour Vital Signs Date Time Temp Pulse Resp B/P (MAP) Pulse Ox O2 Delivery O2 Flow Rate FiO2 05/25/17 11:58 97.5 72 20 134/59 100 05/25/17 08:13 97.2 80 20 155/73 96 05/25/17 08:05 80 155/70 05/25/17 08:05 155/73 05/25/17 08:04 80 155/73 05/25/17 08:00 80 18 Nasal Cannula 2.0 28 05/25/17 08:00 96 Nasal Cannula 2.0 28 05/25/17 08:00 Nasal Cannula 2.0 28 05/25/17 07:55 79 05/25/17 04:00 75 05/25/17 04:00 98.1 75 18 135/68 100 Room Air 05/25/17 00:37 97.9 72 18 148/71 97 Room Air 05/25/17 00:00 70 05/24/17 21:11 77 149/77 05/24/17 20:24 97.7 77 18 149/77 95 Room Air 05/24/17 20:00 76 05/24/17 19:37 83 18 Nasal Cannula 2.0 28 05/24/17 19:37 Nasal Cannula 2.0 28 05/24/17 19:37 99 Nasal Cannula 2.0 28 05/24/17 18:39 78 145/74 05/24/17 18:39 145/74 05/24/17 16:00 98.2 76 19 145/74 100 Nasal Cannula 3.0 05/24/17 16:00 75 Intake and Output 05/25/17 05/26/17 19:00 07:00 Intake Total 530 ml Output Total 700 ml Balance -170 ml Free Water 250 ml Tube Feeding 280 ml Output Urine Total 700 ml General Appearance: no acute distress HEENT: normocephalic, atraumatic Respiratory/Chest: chest wall non-tender, lungs clear Cardiovascular: normal peripheral pulses, normal rate Abdomen: normal bowel sounds, soft, non tender Genitourinary: normal external genitalia Extremities: no clubbing Skin: no rash, no lesions Laboratory Tests 05/25/17 10:05: White Blood Count 5.8, Red Blood Count 3.48L, Hemoglobin 10.2L, Hematocrit 32.8L , Mean Corpuscular Volume 94, Mean Corpuscular Hemoglobin 29.3, Mean Corpuscular Hemoglobin Concent 31.0L, Red Cell Distribution Width 15.4H, Platelet Count 232, Mean Platelet Volume 8.0, Neutrophils (%) (Auto) 70.3, Lymphocytes (%) (Auto) 16.9L, Monocytes (%) (Auto) 6.1, Eosinophils (%) (Auto) 6.1H, Basophils (%) (Auto) 0.6, Sodium Level 145, Potassium Level 4.1, Chloride Level 110H, Carbon Dioxide Level 31, Anion Gap 4L, Blood Urea Nitrogen 31H, Creatinine 1.2, Estimat Glomerular Filtration Rate > 60, Glucose Level 244H, Calcium Level 8.8 JESSE ZAVALA May 25, 2017 15:06
--- NOTE | 2017-05-28 13:13 | Discharge Summary ---
Discharge Summary Hospital Course Date of Admission May 21, 2017 at 06:48 Date of Discharge May 25, 2017 at 13:15 Admitting Diagnosis sepsis, encephalopathy HPI Justin Pimentel is a 62 year old male who was admitted on May 21, 2017 at 06:48 for Sepsis/Encephalopathy Hospital Course dc summary #[id number] Discharge Medications Continued Medications: Acetaminophen (Tylenol) 325 Mg Tablet 325 MG GT Q6H PRN for Prn Pain/Headache/Temp > 101, #30 TAB 0 Refills Aspirin* (Aspir 81*) 81 Mg Tablet.dr 81 MG GT DAILY, TAB Diltiazem Hcl (Diltiazem Hcl) 5 Mg/1 Ml Vial 20 MG IV q2 PRN for elevated bp, VIAL Hydralazine Hcl (Hydralazine Hcl) 20 Mg/1 Ml Vial 10 MG IV Q4HR PRN for elevated bp, VIAL Insulin Aspart (Novolog) 100 Unit/1 Ml Cartridge 100 UNIT SQ AC+HS Levothyroxine Sodium* (Synthroid*) 25 Mcg Tablet 50 MCG GT DAILY, TAB Take in the morning on an empty stomach, at least 30 minutes before food. Lisinopril* (Lisinopril*) 10 Mg Tablet 20 MG ORAL BID, TAB Metoprolol Tartrate* (Metoprolol Tartrate*) 50 Mg Tablet 50 MG ORAL EVERY 12 HOURS, TAB 0 Refills Nitroglycerin (Nitroglycerin) 0.4 Mg Tab.subl 0.4 MG SL, TAB Polyethylene Glycol 3350* (Miralax*) 17 Gm Powd.pack 17 GM GT DAILY, PACKET Ranitidine Hcl* (Zantac*) 150 Mg Tablet 150 MG GT TWICE A DAY, TAB Temazepam* (Restoril*) 15 Mg Capsule 15 MG ORAL BEDTIME PRN for Insomnia, CAP Discontinued Medications: Amlodipine Besylate (Norvasc) 10 Mg Tablet 10 MG GT DAILY, TAB Ascorbic Acid* (Vitamin C*) 500 Mg Tablet 500 MG GT TWICE A DAY, TAB Clonidine Hcl* (Catapres*) 0.1 Mg Tablet 0.1 MG ORAL EVERY 4 HOURS PRN for For High Blood Pressure, TAB Docusate Sodium* (Colace*) 100 Mg Capsule 100 MG GT DAILY, CAP Doxazosin Mesylate* (Cardura*) 1 Mg Tablet 2 MG GT BID, TAB Heparin Sod,Porcine/0.9 % NaCl (Heparin 5,000 Unit/1,000 Ml-Ns) 5,000 Unit/1000 Ml Iv.soln 5000 UNIT SUBQ Q12HR Hydralazine Hcl* (Hydralazine Hcl*) 100 Mg Tablet 100 MG GT BID, TAB Hydralazine Hcl* (Hydralazine Hcl*) 50 Mg Tablet 50 MG GT EVERY 6 HOURS, TAB Isosorbide Dinitrate* (Isordil*) 10 Mg Tablet 10 MG GT EVERY 6 HOURS, #20 TAB 0 Refills Lisinopril (Lisinopril*) 20 Mg Tablet 20 MG GT DAILY, TAB Metoprolol Tartrate* (Metoprolol Tartrate*) 100 Mg Tablet 125 MG GT EVERY 12 HOURS, TAB Discharge Condition Upon Discharge: stable Discharge Disposition Patient was discharged to SNF/Subacute Facility(03) Discharge Diagnoses: Discharge Instructions Discharge Instructions Special Instructions I have been assigned to complete a D/C Summary on this account. I was not involved in the patient management Kandis Simon NP (Vanchtein) May 28, 2017 13:13
--- NOTE | 2017-05-29 04:30 | Discharge Summary 2 SIG ---
DATE OF ADMISSION: 05/21/2017 DATE OF DISCHARGE: 05/25/2017 REASON FOR ADMISSION: 62 years old male with a history of cerebrovascular accident with hemiplegia, bedridden, dysphagia, G-tube, diabetes, hypertension, recent admission for sepsis, presented to the emergency room with altered mental status. Upon evaluation in the emergency department, he was found to be tachycardic -122, blood pressure was -151/90. Urinalysis was consistent with urinary tract infection. The patient was started on empiric antibiotics. EKG revealed sinus tachycardia, no acute ischemic changes. BUN -63, creatinine- 1.8, Pro BNP- 1458, potassium -5.6, and sodium -151. Hyperkalemia was treated in ED. The patient was started on septic protocol and admitted for further management with diagnosis of acute encephalopathy, sepsis, urinary tract infection, dehydration, and hyperkalemia. HOSPITAL COURSE: The patient was admitted. Nephrology, Infectious Disease, and Pulmonology consults were requested. The patient was started on empiric antibiotics. Blood culture were negative, urine culture grew Chinedu, and the wound culture grew Staph aureus. Per Infectious Disease specialist, urine culture revealed no bacterial growth, just yeast, which was colonizer. Urinalysis showed pyuria, but contaminated specimen due to presence of moderate amount of squamous cells. ID specialist concluded that urine culture with yeast was likely colonized, However, one dose of fluconazole was given empirically. Patient also initially received cefepime and vancomycin till urine culture became available. ID recommended monitor the patient off antibiotics. The patient was afebrile, no leukocytosis. Right heel pressure ulcer stage III was not grossly infected. Chest x-ray revealed no acute cardiopulmonary pathology. Educational Sign Language Interpreter closely followed. The patient was hydrated. Renal parameters and electrolytes were closely monitored. Renal ultrasound revealed no evidence of hydronephrosis, normal bilateral kidney echogenicity. With hydration, renal parameters improved, BUN from initial 63 down to 31, creatinine of 1.8 on admission down to 1.2, potassium- 4.1. Prior to discharge, sodium- 145. IV fluids discontinued. Antihypertensive medication regimen was titrated to keep blood pressure under control. Blood sugar was managed with sliding scale of insulin. Strict aspiration precautions were maintained. The patient was able to tolerate tube feedings. TSH was within normal limits. Current dose of levothyroxine was continued. Wound care nurse seen and evaluated the patient for right heel stage III, present on admission, multiple deep tissue injury/stage 1 pressure ulcers, present on admission. Wound care provided as per wound care nurse recommendation. DVT and GI prophylaxes provided. Bowel regimen instituted. Supplemental oxygen provided as needed to keep saturation above 92%. Pulmonary toilet provided as needed. Acuter encephalopathy and acute tubular necrosis were likely due to sepsis and dehydration, resolved. The patient was stable for discharge. FINAL DIAGNOSES: 1. Acute encephalopathy, resolved 2. Sepsis, resolved 3. Acute tubular necrosis, resolved 5. Probably UTI with chinedu 6. Dehydration. 7. Electrolyte imbalances (hyperkalemia, hypernatremia, resolved). 8. Dysphagia, G-tube. 9. History of cerebrovascular accident. 10. Diabetes mellitus. 11. Hypertension. 12. Hypothyroidism. 13. Right heel stage III pressure ulcer, present on admission. 14. Multiple deep tissue injury/stage 1 pressure ulcer, present on admission. DISCHARGE MEDICATIONS: See medication reconciliation list. DISCHARGE INSTRUCTIONS: The patient was discharged to [facility]. Follow up with medical doctor at the facility. Martina Morales M.D. I have been assigned to dictate discharge summary on this account and I was not involved in the patient's management. Kandis UngerSt. Joseph'S Hospital Health CenterKiana N.PRafi DR: BRIAN JOB#: [id number] CC: COLLEEN
== END 2017-05-25 13:15 | DRG 871 ==
LOC: EDUNIT# 05:34 → EDBD 05:34 → EMR 05:56 → 2E 06:48 → EDBEDREQ 08:23 → 2E 10:25
DX: A41.9 Sepsis, unspecified organism (principal); N17.0 Acute kidney failure with tubular necrosis; G93.40 Encephalopathy, unspecified; L89.150 Pressure ulcer of sacral region, unstageable; M62.82 Rhabdomyolysis; E87.0 Hyperosmolality and hypernatremia; L89.613 Pressure ulcer of right heel, stage 3; G35 Multiple sclerosis; N39.0 Urinary tract infection, site not specified; Z43.1 Encounter for attention to gastrostomy; I69.354 Hemiplegia and hemiparesis following cerebral infarction affecting left non-dominant side; E86.0 Dehydration; I10 Essential (primary) hypertension; E11.9 Type 2 diabetes mellitus without complications; E03.9 Hypothyroidism, unspecified; E87.5 Hyperkalemia; Z86.73 Personal history of transient ischemic attack (TIA), and cerebral infarction without residual deficits; L89.91 Pressure ulcer of unspecified site, stage 1; F31.9 Bipolar disorder, unspecified; F20.9 Schizophrenia, unspecified; I25.10 Atherosclerotic heart disease of native coronary artery without angina pectoris; I25.2 Old myocardial infarction; K21.9 Gastro-esophageal reflux disease without esophagitis
CPT/HCPCS: 36415; 70450; 71010; 76775; 80048; 80053; 80307; 81001; 81003; 82436; 82550; 82553; 82962; 83036; 83605; 83735; 83880; 83930; 83935; 84100; 84133; 84300; 84439; 84443; 84484; 84550; 85025; 85610; 85651; 85730; 86140; 87040; 87070; 87086; 87181; 87205; 89050; 90630; 90732; 93005; 94640; 94664; 94760; J1815; J8499

== ENCOUNTER 2017-06-19 23:42 | Inpatient (IN) | payer MEDICARE, MEDICAID ==
[~2017-06-19] VITALS: Ht 175.3 cm; Wt 87.6 kg
[~2017-06-19 23:42] MED LIST changes: +CARDURA1 MG GT; +CATAPRES0.1 MG ORAL; +DILTIAZEM H5 MG/1 ML IV; +HEPARIN 5,5000 UNIT1 SUBQ; +HYDRALAZIN20 MG/1 ML IV; +HYDRALAZINE HCL50 MG GT; +ISOSORBIDE DINI10 MG GT; +LISINOPRIL10 MG ORAL; +LISINOPRIL20 MG GT; +METOPROLOL TAR100 MG GT; +METOPROLOL TART50 MG ORAL; +MIRALAX17 G2 GT; +NITROGLYCERIN0.4 MG SL; +NORVASC10 MG GT; +NOVOLOG100 UNIT/4 SQ; +RESTORIL15 MG ORAL; +ZANTAC150 MG GT
[2017-06-20] VITALS (12 sets, daily range): BP systolic 138–162; BP diastolic 62–99
[2017-06-20] MEDS ORDERED: Etomidate 40mg/20ml Inj IV ONE (00:06)
[2017-06-20] MEDS ORDERED: Succinylcholine 20mg/ml 10ml vial ONE (00:06)
[2017-06-20] MEDS ORDERED: ZINC50 M1 GT (00:13)
[2017-06-20] MEDS ORDERED: VITAMIN C500 M1 GT (00:13)
[2017-06-20] MEDS ORDERED: METOPROLOL TART50 M1 GT (00:13)
[2017-06-20] MEDS ORDERED: NORVASC10 MG GT (00:13)
[2017-06-20] MEDS ORDERED: MULTIVITAMINS1 EAC2 GT (00:13)
[2017-06-20 00:24] LABS: HEMATOCRIT 36.4 % (42.0-52.0); HEMOGLOBIN 11.5 G/DL (14.2-18.0); MEAN CORPUSCULAR VOLUME 93 FL (80-99); PLATELET COUNT 384 K/UL (150-450); RED CELL DISTRIBUTION WIDTH 15.7 % (11.6-14.8); WHITE BLOOD COUNT 13.9 K/UL (4.8-10.8)
[2017-06-20 00:37] LABS: ANION GAP 9 mmol/L (5-15); BLOOD UREA NITROGEN 34 mg/dL (7-18); CALCIUM 8.1 MG/DL (8.5-10.1); CARBON DIOXIDE 29 MMOL/L (21-32); CHLORIDE 110 MMOL/L (98-107); CREATININE 1.6 MG/DL (0.55-1.30); POTASSIUM 4.1 MMOL/L (3.5-5.1); SODIUM 148 MMOL/L (136-145)
[2017-06-20 00:41] LABS: INR 1.1 (0.9-1.1)
[2017-06-20] MEDS ORDERED: Sodium Chloride 500ML 500 ML IV ONE (00:45)
[2017-06-20 00:50] LABS: ALANINE AMINOTRANSFERASE 34 U/L (12-78); ALBUMIN 2.1 G/DL (3.4-5.0); ALBUMIN/GLOBULIN RATIO 0.4 (1.0-2.7); ALKALINE PHOSPHATASE 106 U/L (46-116); ASPARTATE AMINO TRANSFERASE 29 U/L (15-37); BILIRUBIN,TOTAL 0.4 MG/DL (0.2-1.0); CKMB 1.9 NG/ML (0.0-3.6); CREATINE KINASE 54 U/L (26-308)
[2017-06-20] MEDS ORDERED: Cefepime HCl 1 GM in D5W 55 ML IVPB ONE (02:15)
[2017-06-20 02:58] LABS: BILIRUBIN, URINE NEGATIVE (NEGATIVE); GLUCOSE, URINE (UA) 2+ (NEGATIVE); KETONES,URINE NEGATIVE (NEGATIVE); LEUKOCYTE ESTERASE ,URINE 1+ (NEGATIVE); NITRITE,URINE NEGATIVE (NEGATIVE); PH,URINE 6 (4.5-8.0); PROTEIN,URINE 4+ (NEGATIVE); UROBILINOGEN,URINE NORMAL MG/DL (0.0-1.0)
--- NOTE | 2017-06-20 02:59 | Emergency Room Report ---
History of Present Illness General Chief Complaint: Dyspnea/Respdistress Source: Medical Record, EMS Present Illness HPI This 62-year-old gentleman with multiple medical problem including CVA with weakness. He's been admitted to the hospital multiple time already. Recently discharged from another hospital 2 snf. [facility] called for decreased oxygenation. Onset was 30 minutes prior to arrival. Patient was in respiratory distress and hypoxic per EMS. His occupation was only 80 percentile on room air. They put him on oxygen and brought him here. On arrival patient remained rest or distress and hypoxic. He was subsequently intubated. Unable to get any history from the patient. History is from the snf note, previous hospitalization and EMS. 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 Hx Neurological Problems: Yes - multiple sclerosis, osteoporosis, uti, encephalopathy Hx Cerebrovascular Accident: Yes - hemiplegia, hemiparesis right side Hx Dementia: Yes Hx Concentration Difficulty: Yes - failure to thrive Hx Speech Problem: Yes - DELAYED Hx Dysphasia: Yes Review of Systems Eye: Denies: eye pain, blurred vision ENT: Denies: ear pain, nose congestion, throat swelling Respiratory: Reports: shortness of breath, Denies: cough Cardiovascular: Denies: chest pain, palpitations Gastrointestinal: Denies: abdominal pain, diarrhea, nausea, vomiting Musculoskeletal: Denies: back pain, joint pain Skin: Denies: rash Neurological: Denies: headache, numbness Endocrine: Denies: increased thirst, increased urine Hematologic/Lymphatic: Denies: easy bruising All Other Systems: negative except mentioned in HPI Physical Exam Vital Signs Date Time Temp Pulse Resp B/P (MAP) Pulse Ox O2 Delivery O2 Flow Rate FiO2 06/19/17 23:40 97.5 123 26 111/62 78 Non-Rebreather 12.0 1/3/18 00:34 100 vitals with tachycardia and hypoxia Sp02 EP Interpretation: abnormal General Appearance: severe distress Head: normocephalic, atraumatic Eyes: bilateral eye PERRL, bilateral eye EOMI ENT: hearing grossly normal, other - Date mucous membrane and oropharynx Neck: full range of motion, supple, no meningismus Respiratory: chest non-tender, respiratory distress, decreased breath sounds, accessory muscle use, rhonchi Cardiovascular #1: regular rate, rhythm, no murmur Gastrointestinal: normal bowel sounds, non tender, no mass, no organomegaly, no bruit, non-distended Musculoskeletal: back normal, normal range of motion Skin: warm/dry Procedures Critical Care Time Critical Care Time Critical care is mandated in this patient who presented with respiratory failure requiring intubation. Patient require my urgent intervention to attenuate the risks of metabolic collapse which may lead to cardiovascular collapse and . Critical care time is 35 minutes excluding any reportable procedure. Critical care time included evaluation, multiple reevaluation, looking at old charts, interpreting laboratory and diagnostic data, discussing case with patient and family and consultants, and charting. Intubation Intubation : Consent: Emergent Intubation Method: orotracheal Tube Size (cm): 8.0 Medications: Etomidate, Succinylcholine Breath Sounds after Intubation: equal Intubation Complications: no complications Post Intubation Xray: Yes Progress/Xray Impression: Endotracheal tube in good position Attempts: One Patient Tolerated: Well Complications: None Medical Decision Making Diagnostic Impression: Primary Impression: Respiratory failure requiring intubation Additional Impressions: Respiratory failure with hypoxia Qualified Codes: J96.01 - Acute respiratory failure with hypoxia Aspiration pneumonia Qualified Codes: J69.0 - Pneumonitis due to inhalation of food and vomit Anemia Qualified Codes: D64.9 - Anemia, unspecified BOOGIE (acute kidney injury) ACS (acute coronary syndrome) CHF (congestive heart failure) Qualified Codes: I50.9 - Heart failure, unspecified Acute encephalopathy ER Course Patient was respiratory failure. He may have aspirated with acute onset in according to primary care Dr. Mrs. stanley for him. Antibiotics started. lactic acid improved after IV fluid. Lab Results Impression labs with elevated troponin and BNP EKG Diagnostic Results Rate: tachycardiac Rhythm: NSR ST Segments: no acute changes Rhythm Strip Diag. Results EP Interpretation: yes Rate: 120 Rhythm: NSR, no PVC's, no ectopy Chest X-Ray Diagnostic Results Chest X-Ray Diagnostic Results : Chest X-Ray Ordered: Yes # of Views/Limited/Complete: 1 View Indication: Shortness of Breath EP Interpretation: Yes Interpretation: no effusion, no pneumothorax, other - b/l lower lobes interstitial infiltrate Impression: Other - b/l infiltrates Electronically Signed by: Ger Mcclain MD Last Vital Signs Date Time Temp Pulse Resp B/P (MAP) Pulse Ox O2 Delivery O2 Flow Rate FiO2 06/20/17 00:38 12.0 100 06/20/17 00:34 130 15 06/20/17 00:28 Non-Rebreather 06/19/17 23:40 97.5 111/62 78 Status: improved Disposition: ADMITTED INPATIENT Condition: Critical Referrals: CHEMA GAMEZ (PCP) GER MCCLAIN M.D. Jun 20, 2017 02:59
[2017-06-20 03:05] LABS: APPEARANCE,URINE SLIGHTLY CLOUDY; COLOR,URINE YELLOW
[2017-06-20] MEDS ORDERED: Cefepime 1gm vial ONE (04:11)
--- NOTE | 2017-06-20 12:14 | Diagnostic Imaging Report ---
Indication: Reason For Exam: SOB Technique: One view of the chest Comparison: 05/21/2017 Findings: There is infiltrate in the left infrahilar region. There is some atelectasis at the right lung base. There is also retrocardiac consolidation. Pleural spaces are clear. Heart size is normal. There is an endotracheal tube, tip projecting just below the thoracic inlet Impression: Equivocally slightly high position of endotracheal tube Left infrahilar, retrocardiac infiltrates. Right basilar atelectasis
--- NOTE | 2017-06-20 16:05 | Cardiology Report ---
APPROVED REPORT EKG Measurement Heart [id number] Sinus tachycardia Inferior infarct, age undetermined Abnormal ECG
[2017-06-20] MEDS ORDERED: AMLODIPINE BESY10 MG GT (18:50)
[2017-06-20] MEDS ORDERED: METOPROLOL TART50 MG GT (18:50)
[2017-06-20] MEDS ORDERED: LEVOTHYROXINE50 MCG GT (18:50)
[2017-06-20] MEDS ORDERED: MULTI-DELYN237 ML GT (18:50)
[2017-06-20] MEDS ORDERED: LISINOPRIL20 MG GT (18:50)
[2017-06-20] MEDS ORDERED: DOCUSATE SODIU100 MG GT (19:00)
[2017-06-20] MEDS ORDERED: ACETAMINOPHEN325 M1 GT (19:00)
[2017-06-20] MEDS ORDERED: DULCOLAX10 MG RC (19:00)
[2017-06-20] MEDS ORDERED: ZINC SULFATE220 M1 GT (19:00)
[2017-06-20] MEDS ORDERED: ACETAMINOPHEN325 M1 ORAL (19:00)
[2017-06-20] MEDS ORDERED: RESTORIL15 MG ORAL (19:00)
[2017-06-20] MEDS ORDERED: FLEET ENEMA133 ML RECTAL (19:00)
[2017-06-20] MEDS ORDERED: TYLENOL EXTRA500 MG GT (19:00)
[2017-06-20] MEDS ORDERED: NITROSTAT0.4 M1 SL (19:00)
[2017-06-20] MEDS ORDERED: MILK OF MA400 MG/51 ORAL (19:00)
[2017-06-21] VITALS (24 sets, daily range): BP systolic 91–144; BP diastolic 41–88
[2017-06-21] MEDS ORDERED: Fleet's Enema 133ml RECTAL PRN (01:15)
[2017-06-21] MEDS ORDERED: Acetaminophen 500mg (ES) tab ORAL PRN (01:15)
[2017-06-21] MEDS ORDERED: Nitroglycerin Subl 0.4mg tab SL PRN (01:15)
[2017-06-21 06:28] LABS: HEMATOCRIT 29.6 % (42.0-52.0); HEMOGLOBIN 9.4 G/DL (14.2-18.0); MEAN CORPUSCULAR VOLUME 95 FL (80-99); PLATELET COUNT 215 K/UL (150-450); RED BLOOD COUNT 3.11 M/UL (4.70-6.10); RED CELL DISTRIBUTION WIDTH 16.9 % (11.6-14.8); WHITE BLOOD COUNT 15.3 K/UL (4.8-10.8)
[2017-06-21] MEDS ORDERED: NovoLOG Insulin Flexpen SUBQ SCH ×2 (06:30→11:30)
[2017-06-21 08:56] LABS: ANION GAP 17 mmol/L (5-15); BLOOD UREA NITROGEN 57 mg/dL (7-18); CALCIUM 7.3 MG/DL (8.5-10.1); CARBON DIOXIDE 20 MMOL/L (21-32); CHLORIDE 114 MMOL/L (98-107); CREATININE 2.7 MG/DL (0.55-1.30); POTASSIUM 3.9 MMOL/L (3.5-5.1); SODIUM 151 MMOL/L (136-145)
[2017-06-21] MEDS: Metoprolol Tartrate 50mg tab GT SCH ×2 (08:59→20:43)
[2017-06-21] MEDS: Aspirin EC 81mg tab ORAL SCH (08:59)
[2017-06-21] MEDS ORDERED: Zinc Sulfate 220mg cap GT SCH (09:00)
[2017-06-21] MEDS ORDERED: Lisinopril 20mg tab GT SCH (09:00)
[2017-06-21] MEDS ORDERED: Ascorbic Acid 500mg tab GT SCH (09:00)
[2017-06-21] MEDS ORDERED: Docusate 100mg cap ORAL SCH (09:00)
[2017-06-21] MEDS ORDERED: Milk of Magnesia 30ml Ud ORAL SCH (09:00)
[2017-06-21] MEDS: Heparin 5000 units/ml inj SUBQ SCH ×2 (09:01→20:46)
--- NOTE | 2017-06-21 10:30 | History and Physical Report ---
DATE OF ADMISSION: 06/20/2017 NOTE: POOR AUDIO REASON FOR ADMISSION: This is one of several admissions to [facility] of this 62-year-old patient because of respiratory failure. HISTORY OF PRESENT ILLNESS: The patient is a resident of an extended care facility where he has been in stable condition until one week prior to the present admission. One week ago, he developed sepsis and was transferred to [facility] urgent care and was admitted. He received IV antibiotic. His leukocytosis and fever and tachycardia resolved. He was found to have occult blood positive stool and underwent upper GI endoscopy and was found to have acute gastritis. When he was stable, he was transferred back to convalescent. Within 48 hours after that discharge, the patient developed , tachycardia, and fever. Paramedics were called. The patient was transferred to [facility] ER where he was found to be in acute respiratory failure, had to be intubated and placed on mechanical ventilation. He received IV antibiotic for one day in the emergency room itself before the bed became available in [place] intensive care unit. He has now been admitted to the intensive care. PAST MEDICAL HISTORY: cerebrovascular accident right hemiplegia that required tracheostomy and gastrostomy tube. He was successfully from the respirator several years ago, but remained tube dependent for nutrition. For the last few years, he was tube feeding months ago, he became unable to swallow and gastrostomy tube was inserted again. mentioned above, the patient has episode of cardiac arrhythmia, hyperlipidemia, . ALLERGIES: No known drug allergies. MEDICATIONS: The patient is on cefepime 1 g IV piggyback q.12 h., metronidazole 500 mg q.8 h. He is on levofloxacin 750 mg IV piggyback q.24 h. He is fed by gastrostomy tube. FAMILY HISTORY: Not contributory. The patient has one sister in good health. He has no children. SOCIAL HISTORY: He is single. He was born in [place], has been on SSI for many years. Prior to the appearance of total disability, he was never employed. HABITS: The patient does not smoke, drink, or use illicit drugs. REVIEW OF SYSTEMS: The patient is unable to give any information regarding his state of health. He is intubated and poorly responsive. PHYSICAL EXAMINATION: VITAL SIGNS: Blood pressure is 144/83, his pulse is 120, respirations were 30, and temperature was 104. HEENT: Eyes were normal. Pupils were round, equal, and reactive to light. Sclerae were white. Conjunctivae were pink. Extraocular movements were normal. Temporal arteries were palpable bilaterally. There was no bilateral temporal wasting. Visual bang to confrontation were normal. Neglect sign was negative. ENT, mucous membranes were not dehydrated. Auditory canals were clear and tympanic membranes could not be visualized. Nasal cavity was not congested. Nasal septum was intact. Soft palate was free of ulceration. Pharynx was clear from exudate or tonsillar hypertrophy. Uvula edgardo to phonation. Tongue was moist, midline, and normally papillated. NECK: Supple. There was no goiter. No mass. No lymphadenopathy. There was no JVD. No bruit. Carotid upstroke was 2+. LUNGS: Clear. HEART: PMI was in the fourth left intercostal space in midclavicular line. There was normal S1 and normal S2. There was no arrhythmia. No S3. No S4. No pericardial rub. There was sinus tachycardia on monitor. ABDOMEN: Soft and nontender without organomegaly. There was no mass palpable. Normal bowel sounds without bruits. There was no guarding. No rebound tenderness. No ascites. No hernia. No CVA tenderness. Liver span was 8 cm, mostly nontender. EXTREMITIES: No cyanosis, no clubbing, and no edema. Extremities were warm. NEUROLOGICAL: Reflexes in biceps, triceps, and brachioradialis were present. Patellar retinacula was difficult to obtain. Plantars were in extension on the right and flexion on the left. Cranial nerves from II through XII were symmetric and equal. Cerebellar function, there was no tremor. No nystagmus. No extrapyramidal rigidity. Sensory exam to pinprick, cotton touch, position, and motor strength could not be assessed because of the patient's clinical status. LABORATORY AND DIAGNOSTIC DATA: Hemoglobin 11.5, hematocrit 36.4 with MCV of 93, WBC of 13.9, and platelets are 384. His BUN and creatinine are and 1.6, respectively. Sodium was 148, potassium 4.1, chloride 110, CO2 is 29. His glucose was 262. His lactic acid was 2.5 yesterday and 1.2 today. His albumin is 2.1. His globulin is 4.8. Total protein is 6.9. His proBNP is 10,847. Total CK is 3.5. SGOT, SGPT, and alkaline phosphatase were normal. Chest x-ray revealed left infrahilar retrocardiac infiltrate and right basilar atelectasis. PLAN: The patient's blood culture to be taken now. The patient will continue his current medications, which are cefepime 1 g IV piggyback q.12 h., metronidazole 500 mg IV piggyback q.24 h., and Levaquin 750 mg IV piggyback q.24 h. Repeat laboratory tests will be done in the morning. Martina Morales M.D. DR: DEONNA JOB#: [id number] CC:
--- NOTE | 2017-06-21 10:38 | Diagnostic Imaging Report ---
Indication: Dyspnea Technique: One view of the chest Comparison: 06/20/2017 Findings: Endotracheal tube projects 6 cm above the quan. Perihilar infiltrate on the left is stable or slightly improved. Otherwise clear lungs and pleural spaces. Heart size is normal. Findings are unchanged Impression: Stable or slightly improved left perihilar infiltrate. Little change otherwise over one day
--- NOTE | 2017-06-21 11:09 | Pulmonolgy Critical Care Note ---
Critical Care - Asmt/Plan Problems: (1) Acute encephalopathy (2) Respiratory failure with hypoxia (3) Urosepsis (4) Non-ST elevation (NSTEMI) myocardial infarction (5) History of CVA (cerebrovascular accident) (6) ATN (acute tubular necrosis) (7) Feeding by G-tube Respiratory: monitor respiratory rate, adjust FIO2, CXR Cardiac: continue pressors, other - check ECho Infectious Disease: check cultures, add antibiotics Gastrointestinal: start feedings Endocrine: monitor blood sugar Hematologic: monitor H/H Neurologic: PRN Ativan Affect: PRN ativan Notes Reviewed: resident care manager rn Discussed with: nurses, consultants, upper casersr. manager corporate communications - Objective Last 24 Hour Vital Signs Date Time Temp Pulse Resp B/P (MAP) Pulse Ox O2 Delivery O2 Flow Rate FiO2 06/21/17 10:00 75 15 100/49 100 Mechanical Ventilator 40 06/21/17 09:09 80 16 40 06/21/17 09:00 104 16 132/71 100 Mechanical Ventilator 40 06/21/17 08:59 100 146/65 06/21/17 08:59 146/65 06/21/17 08:59 104 146/65 06/21/17 08:00 98.8 100 16 129/59 100 Mechanical Ventilator 40 06/21/17 08:00 104 06/21/17 08:00 40 06/21/17 07:25 106 18 40 06/21/17 07:00 119 18 142/71 97 Mechanical Ventilator 40 06/21/17 06:00 109 18 124/78 98 Mechanical Ventilator 40 06/21/17 05:24 111 16 40 06/21/17 05:00 113 18 129/69 99 Mechanical Ventilator 40 06/21/17 04:00 97.1 98 17 125/73 98 Mechanical Ventilator 40 06/21/17 04:00 40 06/21/17 04:00 98 06/21/17 03:00 100 18 132/69 99 Mechanical Ventilator 40 06/21/17 02:57 103 25 40 06/21/17 02:00 103 23 123/67 100 Mechanical Ventilator 40 06/21/17 01:01 105 24 40 06/21/17 01:00 113 20 144/76 98 Mechanical Ventilator 40 06/21/17 00:00 113 06/21/17 00:00 102.8 110 18 137/88 99 Mechanical Ventilator 40 06/21/17 00:00 40 06/20/17 22:50 98.0 113 27 155/81 100 Mechanical Ventilator 12.0 40 06/20/17 22:50 127 27 155/81 100 Mechanical Ventilator 12.0 40 06/20/17 22:30 117 29 40 06/20/17 21:03 119 30 40 06/20/17 21:00 123 28 151/79 100 Mechanical Ventilator 12.0 40 06/20/17 19:00 120 30 144/83 100 Endotracheal Tube 12.0 40 06/20/17 18:56 120 29 40 06/20/17 17:00 120 25 159/82 100 Endotracheal Tube 12.0 40 06/20/17 16:58 120 32 40 06/20/17 15:00 123 33 152/62 100 Endotracheal Tube 12.0 40 06/20/17 14:40 122 23 40 06/20/17 13:00 126 29 160/75 100 Endotracheal Tube 12.0 40 06/20/17 12:31 125 26 40 Status: sedated Condition: critical HEENT: atraumatic Lungs: clear Heart: HR/BP stable Abdomen: non-tender, active bowel sounds Extremities: no C/C/E Decubiti: location Micro: Microbiology Date/Time Source Procedure Growth Status 06/20/17 00:11 Blood Blood Culture - Preliminary NO GROWTH AFTER 24 HOURS Resulted 06/20/17 00:00 Blood Blood Culture - Preliminary NO GROWTH AFTER 24 HOURS Resulted Accucheck: 305 Critical Care - Subjective ROS Limited/Unobtainable: Yes ICU Day: 2 Intubation Day: 2 Condition: critical EKG Rhythm: Sinus Rhythm FI02: 40 Vent Support Breath Rate: 15 Vent Support Mode: AC Vent Tidal Volume: 600 Sputum Amount: Scant PEEP: 5.0 PIP: 26 Fluids: 1/2 NS 100 cc/hour I&O: Intake and Output 06/20/17 06/21/17 19:00 07:00 Intake Total 550 ml Output Total 280 ml Balance 270 ml IV Total 550 ml Output Urine Total 280 ml CXR: ET in good position ET-Tube: 7.5 ET Position: 22 Labs: Laboratory Tests Test 06/21/17 04:50 White Blood Count 15.3 K/UL (4.8-10.8) H Red Blood Count 3.11 M/UL (4.70-6.10) L Hemoglobin 9.4 G/DL (14.2-18.0) L Hematocrit 29.6 % (42.0-52.0) L Mean Corpuscular Volume 95 FL (80-99) Mean Corpuscular Hemoglobin 30.2 PG (27.0-31.0) Mean Corpuscular Hemoglobin Concent 31.7 G/DL (32.0-36.0) L Red Cell Distribution Width 16.9 % (11.6-14.8) H Platelet Count 215 K/UL (150-450) Mean Platelet Volume 6.8 FL (6.5-10.1) Neutrophils (%) (Auto) % (45.0-75.0) Lymphocytes (%) (Auto) % (20.0-45.0) Monocytes (%) (Auto) % (1.0-10.0) Eosinophils (%) (Auto) % (0.0-3.0) Basophils (%) (Auto) % (0.0-2.0) Differential Total Cells Counted 100 Neutrophils % (Manual) 92 % (45-75) H Lymphocytes % (Manual) 6 % (20-45) L Monocytes % (Manual) 2 % (1-10) Eosinophils % (Manual) 0 % (0-3) Basophils % (Manual) 0 % (0-2) Band Neutrophils 0 % (0-8) Platelet Estimate Adequate Platelet Morphology Normal Hypochromasia 1+ Anisocytosis 1+ Sodium Level 151 MMOL/L (136-145) H Potassium Level 3.9 MMOL/L (3.5-5.1) Chloride Level 114 MMOL/L (98-107) H Carbon Dioxide Level 20 MMOL/L (21-32) L Anion Gap 17 mmol/L (5-15) H Blood Urea Nitrogen 57 mg/dL (7-18) H Creatinine 2.7 MG/DL (0.55-1.30) #H Estimat Glomerular Filtration Rate 23.9 mL/min (>60) Glucose Level 375 MG/DL (74-106) #H Calcium Level 7.3 MG/DL (8.5-10.1) L Troponin I 0.291 ng/mL (0.000-0.056) JESSE ZAVALA Jun 21, 2017 11:09
[2017-06-21] MEDS ORDERED: Amikacin Rx to dose MISC PRN (11:15)
[2017-06-21] MEDS: NovoLOG Insulin Flexpen SUBQ SCH ×2 (11:30→18:37)
[2017-06-21] MEDS ORDERED: Vancomycin 1250mg/D5W 250ml IVPB ONE (13:00)
[2017-06-21 13:12] LABS: CREATINE KINASE 89 U/L (26-308); LACTATE DEHYDROGENASE 329 U/L (81-234)
[2017-06-21 13:24] LABS: INR 1.2 (0.9-1.1)
[2017-06-21 13:57] LABS: % IRON SATURATION 30 % (15-50); IRON 31 ug/dL (50-175); TOTAL IRON BINDING CAPACITY 102 ug/dL (250-450)
[2017-06-21] MEDS ORDERED: Amikacin 500 MG in NS 110 ML IV SCH (14:00)
--- NOTE | 2017-06-21 15:40 | Wound Care Consultation ---
Wound Assessment Wound Assessment #1: Wound Number: 1 Wound Present on Admission: Yes New Wound: No Status Change of Wound: No Wound Location Body Site Modif: left, lateral Wound Location Body Site: malleolus/ankle Wound Type: pressure ulcer Victor Manuel Test: Does not Victor Manuel Pressure Ulcer Stage: Deep Tissue Injury Wound Thickness: Full Thickness Wound Length: 1.5 Wound Width: 1.5 Wound Depth: utd Percent of Wound Purple/Maroon: 100 Wound Drainage Amount: None Wound Drainage Odor: None/Absent Tissue Surrounding Wound: Intact Wound General Appearance: Reddened - purple/maroon Wound Assessment #2: Wound Number: 2 Wound Present on Admission: Yes New Wound: No Status Change of Wound: No Wound Location Body Site Modif: left, medial Wound Location Body Site: malleolus/ankle Wound Type: pressure ulcer Victor Manuel Test: Does not Victor Manuel Pressure Ulcer Stage: Deep Tissue Injury Wound Thickness: Full Thickness Wound Length: 2.5 Wound Width: 2.5 Wound Depth: utd Percent of Wound Purple/Maroon: 100 Wound Drainage Amount: None Wound Drainage Odor: None/Absent Tissue Surrounding Wound: Intact Wound General Appearance: Reddened - purple/maroon Wound Assessment #3: Wound Number: 3 Wound Present on Admission: Yes New Wound: No Status Change of Wound: No Wound Location Body Site Modif: left, lateral Wound Location Body Site: foot Wound Type: pressure ulcer Victor Manuel Test: Does not Victor Manuel Pressure Ulcer Stage: Deep Tissue Injury Wound Thickness: Full Thickness Wound Length: 0.5 Wound Width: 0.5 Wound Depth: utd Percent of Wound Purple/Maroon: 100 Wound Drainage Amount: None Wound Drainage Odor: None/Absent Tissue Surrounding Wound: Intact Wound General Appearance: Reddened - purple/maroon Wound Assessment #4: Wound Number: 4 Wound Present on Admission: Yes New Wound: No Status Change of Wound: No Wound Location Body Site Modif: left, medial Wound Location Body Site: foot Wound Type: pressure ulcer Victor Manuel Test: Does not Victor Manuel Pressure Ulcer Stage: Deep Tissue Injury - scattered Wound Thickness: Full Thickness Wound Length: 5.5 Wound Width: 4.0 Wound Depth: utd Percent of Wound Purple/Maroon: 100 Wound Drainage Amount: None Wound Drainage Odor: None/Absent Tissue Surrounding Wound: Intact Wound General Appearance: Reddened - purple/maroon Wound Assessment #5: Wound Number: 5 Wound Present on Admission: Yes New Wound: No Status Change of Wound: No Wound Location Body Site Modif: left Wound Location Body Site: heel Wound Type: pressure ulcer Victor Manuel Test: Does not Victor Manuel Pressure Ulcer Stage: Deep Tissue Injury Wound Thickness: Full Thickness Wound Length: 5.5 Wound Width: 5.5 Wound Depth: utd Percent of Wound Purple/Maroon: 100 Wound Drainage Amount: None Wound Drainage Odor: None/Absent Tissue Surrounding Wound: Erythemic Wound General Appearance: Reddened - purple/maroon Wound Assessment #6: Wound Number: 6 Wound Present on Admission: Yes New Wound: No Status Change of Wound: No Wound Location Body Site Modif: right Wound Location Body Site: heel Wound Type: pressure ulcer Victor Manuel Test: Does not Victor Manuel Pressure Ulcer Stage: Deep Tissue Injury Wound Thickness: Full Thickness Wound Length: 5.0 Wound Width: 5.0 Wound Depth: utd Percent of Wound Purple/Maroon: 100 Wound Drainage Amount: None Wound Drainage Odor: None/Absent Tissue Surrounding Wound: Erythemic Wound General Appearance: Reddened - purple/maroon Wound Assessment #7: Wound Number: 7 Wound Present on Admission: Yes New Wound: No Status Change of Wound: No Wound Location Body Site Modif: right, lateral Wound Location Body Site: malleolus/ankle Wound Type: pressure ulcer Victor Manuel Test: Does not Victor Manuel Pressure Ulcer Stage: Deep Tissue Injury Wound Thickness: Full Thickness Wound Length: 2.5 Wound Width: 2.5 Wound Depth: utd Percent of Wound Purple/Maroon: 100 Wound Drainage Amount: None Wound Drainage Odor: None/Absent Tissue Surrounding Wound: Intact Wound General Appearance: Reddened - purple/maroon Wound Assessment #8: Wound Number: 8 Wound Present on Admission: Yes New Wound: No Status Change of Wound: No Wound Location Body Site Modif: right, dorsal Wound Location Body Site: foot Wound Type: pressure ulcer Victor Manuel Test: Does not Victor Manuel Pressure Ulcer Stage: Deep Tissue Injury Wound Thickness: Full Thickness Wound Length: 4.5 Wound Width: 3.5 Wound Depth: utd Percent of Wound Purple/Maroon: 100 Wound Drainage Amount: None Wound Drainage Odor: None/Absent Tissue Surrounding Wound: Intact Wound General Appearance: Reddened - purple/maroon Wound Assessment #9: Wound Number: 9 Wound Present on Admission: Yes New Wound: No Status Change of Wound: No Wound Location Body Site Modif: right, medial Wound Location Body Site: malleolus/ankle Wound Type: pressure ulcer Victor Manuel Test: Does not Victor Manuel Pressure Ulcer Stage: Deep Tissue Injury Wound Thickness: Full Thickness Wound Length: 2.0 Wound Width: 2.0 Wound Depth: utd Percent of Wound Purple/Maroon: 100 Wound Drainage Amount: None Wound Drainage Odor: None/Absent Tissue Surrounding Wound: Intact Wound General Appearance: Reddened - purple/maroon Wound Assessment #10: Wound Number: 10 Wound Present on Admission: Yes New Wound: No Status Change of Wound: No Wound Location Body Site Modif: mid Wound Location Body Site: other - Sacrococcygeal Wound Type: pressure ulcer Victor Manuel Test: Does not Victor Manuel Pressure Ulcer Stage: Unstageable Wound Thickness: Full Thickness Wound Length: 5.5 Wound Width: 7.0 Wound Depth: utd Percent of Wound [place]/Red: 50 Percent of Wound Bed Yellow/Wh: 20 Percent of Wound Purple/Maroon: 30 Wound Drainage Description: Serosanguineous Wound Drainage Amount: Moderate Wound Drainage Odor: None/Absent Tissue Surrounding Wound: Macerated Wound General Appearance: Reddened - purple,maroon Wound Comment #1 Left lateral malleolus DTI pressure ulcer #2 Left medial malleolus DTI pressure ulcer #3 Left lateral foot DTI pressure ulcer #4 Left medial foot scattered DTI pressure ulcer #5 Left heel DTI pressure ulcer #6 Right heel DTI pressure ulcer #7 Right lateral malleolus DTI Pressure ulcer #8 Right dorsal foot DTI pressure ulcer #9 Right medial malleolus SDTI pressure ulcer #10 Sacrococcygeal unstageable pressure ulcer Recommendation -Local wound care per protocol -Keep clean and dry -Optimize nutrition -Turn and reposition -Offload both heels -Heel protector on both heels -Low air loss P200 mattress -Assess and f/u accordingly for any changes GABI RAMIREZ RN Jun 21, 2017 15:40
[2017-06-21] MEDS: LORazepam Inj 2mg/ml 1ml IV PRN (15:44)
--- NOTE | 2017-06-21 16:47 | Consultation ---
Consult Note Consult Note asked to eval for renal failure- This 62-year-old gentleman with multiple medical problem including CVA with weakness. He's been admitted to the hospital multiple time already. [facility] living called for decreased oxygenation. Onset was 30 minutes prior to arrival. Patient was in respiratory distress and hypoxic per EMS. His occupation was only 80 percentile on room air. They put him on oxygen and brought him here. On arrival patient remained rest or distress and hypoxic. He was subsequently intubated. Unable to get any history from the patient. History is from [facility] note, previous hospitalization and EMS. 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
--- NOTE | 2017-06-21 17:20 | Consultation ---
History of Present Illness General Date patient seen: Jun 21, 2017 Time patient seen: 17:00 Chief Complaint: Dyspnea/Respdistress Present Illness HPI 62 y/o M with hx of HTN, CKD, DM2, bipolar dz/schizophrenia, GERD, cardiac arrhythmia, Dementia, CAD with prior MA, MS, osteoporosis, asthma, VIt D def, hypothyroidism, HLD, dysphagia s/p GT, R MCA CVA with left hemiplegia, s/p trach with 2 recent admissions here (05/22-05/25 and 05/11-05/18) for changes in mentation is brought back to ED on 06/19 with hypoxia (80s at RA), resp distress and fever at SNF. In ED required intubation Of note, patient recently admitted to [facility] about 1 week ago for sepsis and received IV abx tx. In that admission also had + occult blood and underwent EGD which showed acute gastritis. He is now presenting to our ED within 48hrs post discharge Allergies: Coded Allergies: No Known Allergies (Unverified , 05/11/17) Medication History Scheduled Acetaminophen* (Acetaminophen 325MG Tablet*), 650 MG GT DAILY, (Reported) Amlodipine Besylate* (Amlodipine Besylate*), 10 MG GT BID, (Reported) Ascorbic Acid* (Vitamin C*), 500 MG GT TWICE A DAY, (Reported) Aspirin* (Aspir 81*), 81 MG GT DAILY, (Reported) Docusate Sodium* (Docusate Sodium*), 100 MG GT DAILY, (Reported) Insulin Aspart (Novolog), 100 UNIT SQ AC+HS, (Reported) Levothyroxine Sodium* (Levothyroxine Sodium*), 50 MCG GT DAILY, (Reported) Lisinopril (Lisinopril*), 20 MG GT BID, (Reported) Magnesium Hydroxide* (Milk Of Magnesia*), 30 ML ORAL HS, (Reported) Metoprolol Tartrate* (Metoprolol Tartrate*), 50 MG GT EVERY 12 HOURS, (Reported) Multivitamin Liquid* (Multi-Delyn*), 5 ML GT DAILY, (Reported) Ranitidine Hcl* (Zantac*), 150 MG GT TWICE A DAY, (Reported) Zinc Sulfate (Zinc Sulfate*), 220 MG GT DAILY, (Reported) Scheduled PRN Acetaminophen* (Acetaminophen 325MG Tablet*), 650 MG ORAL Q6H PRN for MILD PAIN (1-4). NTE 3GM/DAY, (Reported) Acetaminophen* (Tylenol Extra Strength*), 1,000 MG GT Q6H PRN for MODERATE PAIN (5-7), (Reported) Bisacodyl (Dulcolax), 10 MG RC DAILY PRN for IF MOM INEFFECTIVE, (Reported) Na Phos,M-B/Na Phos,Di-Ba* (Fleet Enema*), 133 ML RECTAL EVERY OTHER DAY PRN for IF DULCOLAX IS INEFFECTIVE, (Reported) Nitroglycerin (Nitrostat), 0.4 MG SL Q5M X3 DOSES PRN for CHEST PAIN, (Reported) Temazepam* (Restoril*), 15 MG ORAL BEDTIME PRN for Insomnia, (Reported) Discontinued Medications Diltiazem Hcl (Diltiazem Hcl), 20 MG IV q2 PRN for elevated bp, (Reported) Discontinued Reason: MD discontinued med Hydralazine Hcl (Hydralazine Hcl), 10 MG IV Q4HR PRN for elevated bp, (Reported) Discontinued Reason: MD discontinued med Polyethylene Glycol 3350* (Miralax*), 17 GM GT DAILY, (Reported) Discontinued Reason: MD discontinued med Temazepam* (Restoril*), 15 MG ORAL BEDTIME PRN for Insomnia, (Reported) Discontinued Reason: MD discontinued med Patient History Healthcare decision maker N Resuscitation status Advanced Directive on File Patient History Narrative PMhx: as above Shx: reviewed Fhx: non contributory Review of Systems ROS Narrative unable to obtain Physical Exam Physical Exam Narrative Status: sedated Condition: critical HEENT: atraumatic Lungs: clear Heart: HR/BP stable Abdomen: non-tender, active bowel sounds Extremities: no C/C/E Decubiti: location Last 24 Hour Vital Signs Date Time Temp Pulse Resp B/P (MAP) Pulse Ox O2 Delivery O2 Flow Rate FiO2 06/21/17 16:00 98.5 97 16 134/77 98 Mechanical Ventilator 40 06/21/17 16:00 40 06/21/17 15:26 98 18 40 06/21/17 15:00 97 16 138/67 100 Mechanical Ventilator 40 06/21/17 14:00 87 15 133/63 100 Mechanical Ventilator 40 06/21/17 13:25 77 15 40 06/21/17 13:00 98.3 79 15 110/57 100 Mechanical Ventilator 40 06/21/17 12:00 82 06/21/17 12:00 99.0 83 15 104/41 99 Mechanical Ventilator 40 06/21/17 12:00 40 06/21/17 11:04 76 15 40 06/21/17 11:00 75 15 101/47 100 Mechanical Ventilator 40 06/21/17 10:00 75 15 100/49 100 Mechanical Ventilator 40 06/21/17 09:09 80 16 40 06/21/17 09:00 104 16 132/71 100 Mechanical Ventilator 40 06/21/17 08:59 100 146/65 06/21/17 08:59 146/65 06/21/17 08:59 104 146/65 06/21/17 08:00 98.8 100 16 129/59 100 Mechanical Ventilator 40 06/21/17 08:00 104 06/21/17 08:00 40 06/21/17 07:25 106 18 40 06/21/17 07:00 119 18 142/71 97 Mechanical Ventilator 40 06/21/17 06:00 109 18 124/78 98 Mechanical Ventilator 40 06/21/17 05:24 111 16 40 06/21/17 05:00 113 18 129/69 99 Mechanical Ventilator 40 06/21/17 04:00 97.1 98 17 125/73 98 Mechanical Ventilator 40 06/21/17 04:00 40 06/21/17 04:00 98 06/21/17 03:00 100 18 132/69 99 Mechanical Ventilator 40 06/21/17 02:57 103 25 40 06/21/17 02:00 103 23 123/67 100 Mechanical Ventilator 40 06/21/17 01:01 105 24 40 06/21/17 01:00 113 20 144/76 98 Mechanical Ventilator 40 06/21/17 00:00 113 06/21/17 00:00 102.8 110 18 137/88 99 Mechanical Ventilator 40 06/21/17 00:00 40 06/20/17 22:50 98.0 113 27 155/81 100 Mechanical Ventilator 12.0 40 06/20/17 22:50 127 27 155/81 100 Mechanical Ventilator 12.0 40 06/20/17 22:30 117 29 40 06/20/17 21:03 119 30 40 06/20/17 21:00 123 28 151/79 100 Mechanical Ventilator 12.0 40 06/20/17 19:00 120 30 144/83 100 Endotracheal Tube 12.0 40 06/20/17 18:56 120 29 40 06/20/17 17:00 120 25 159/82 100 Endotracheal Tube 12.0 40 Intake and Output 06/20/17 06/21/17 19:00 07:00 Intake Total 550 ml Output Total 280 ml Balance 270 ml IV Total 550 ml Output Urine Total 280 ml Laboratory Tests Test 06/21/17 04:50 06/21/17 11:55 White Blood Count 15.3 K/UL (4.8-10.8) H Red Blood Count 3.11 M/UL (4.70-6.10) L Hemoglobin 9.4 G/DL (14.2-18.0) L Hematocrit 29.6 % (42.0-52.0) L Mean Corpuscular Volume 95 FL (80-99) Mean Corpuscular Hemoglobin 30.2 PG (27.0-31.0) Mean Corpuscular Hemoglobin Concent 31.7 G/DL (32.0-36.0) L Red Cell Distribution Width 16.9 % (11.6-14.8) H Platelet Count 215 K/UL (150-450) Mean Platelet Volume 6.8 FL (6.5-10.1) Neutrophils (%) (Auto) % (45.0-75.0) Lymphocytes (%) (Auto) % (20.0-45.0) Monocytes (%) (Auto) % (1.0-10.0) Eosinophils (%) (Auto) % (0.0-3.0) Basophils (%) (Auto) % (0.0-2.0) Differential Total Cells Counted 100 Neutrophils % (Manual) 92 % (45-75) H Lymphocytes % (Manual) 6 % (20-45) L Monocytes % (Manual) 2 % (1-10) Eosinophils % (Manual) 0 % (0-3) Basophils % (Manual) 0 % (0-2) Band Neutrophils 0 % (0-8) Platelet Estimate Adequate Platelet Morphology Normal Hypochromasia 1+ Anisocytosis 1+ Sodium Level 151 MMOL/L (136-145) H Potassium Level 3.9 MMOL/L (3.5-5.1) Chloride Level 114 MMOL/L (98-107) H Carbon Dioxide Level 20 MMOL/L (21-32) L Anion Gap 17 mmol/L (5-15) H Blood Urea Nitrogen 57 mg/dL (7-18) H Creatinine 2.7 MG/DL (0.55-1.30) #H Estimat Glomerular Filtration Rate 23.9 mL/min (>60) Glucose Level 375 MG/DL (74-106) #H Calcium Level 7.3 MG/DL (8.5-10.1) L Troponin I 0.291 ng/mL (0.000-0.056) 0.211 ng/mL (0.000-0.056) Erythrocyte Sedimentation Rate 125 MM/HR (0-20) H Reticulocyte Count 1.2 % (0.0-2.0) Prothrombin Time 12.3 SEC (9.30-11.50) H Prothromb Time International Ratio 1.2 (0.9-1.1) H Activated Partial Thromboplast Time 30 SEC (23-33) Uric Acid 7.7 MG/DL (2.6-7.2) H Iron Level 31 ug/dL (50-175) L Total Iron Binding Capacity 102 ug/dL (250-450) L Percent Iron Saturation 30 % (15-50) Unsaturated Iron Binding 71 ug/dL (112-346) L Lactate Dehydrogenase 329 U/L (81-234) H Total Creatine Kinase 89 U/L (26-308) Vitamin B12 Level 1906 PG/ML (193-986) H Folate 61.9 NG/ML (8.6-58.9) H Height (Feet): 5 Height (Inches): 9.00 Weight (Pounds): 172 Medications Current Medications Medications (Trade) Dose Ordered Sig/Willem Route PRN Reason Start Time Stop Time Status Last Admin Dose Admin Acetaminophen (Tylenol) 650 mg DAILY PRN ORAL Temp > 100.5 06/21/17 01:15 07/21/17 01:14 Acetaminophen (Tylenol) 650 mg Q6H PRN ORAL MILD PAIN (1-4). NTE 3GM/DAY 06/21/17 01:15 07/21/17 01:14 Acetaminophen (Tylenol) 1,000 mg Q6H PRN ORAL MODERATE PAIN (5-7) 06/21/17 01:15 07/21/17 01:14 Amikacin Protocol (Amikacin pharmacy to dose) 1 ea DAILY PRN MISC Per rx protocol 06/21/17 11:15 07/21/17 11:14 Amikacin Sulfate 500 mg/Sodium Chloride 112 ml @ 224 mls/hr Q24H IV 06/21/17 14:00 06/28/17 13:59 06/21/17 15:00 Amlodipine Besylate (Norvasc) 10 mg DAILY GT 06/22/17 09:00 07/21/17 08:59 Aspirin (Ecotrin) 81 mg DAILY ORAL 06/21/17 09:00 07/21/17 08:59 06/21/17 08:59 Bisacodyl (Dulcolax) 10 mg DAILY PRN RECTAL constipationIF MOM INEFFECTIVE 06/21/17 01:15 07/21/17 01:14 Clonidine HCl (Catapres) 0.1 mg Q4H PRN GT bp of 160 syst and above 06/21/17 17:00 07/21/17 16:59 Dextrose (Dextrose 50%) STAT PRN IV Hypoglycemia 06/21/17 06:45 07/21/17 06:44 Famotidine (Pepcid) 20 mg DAILY ORAL 06/22/17 09:00 07/22/17 08:59 Heparin Sodium (Porcine) (Heparin 5000 units/ml) 5,000 units EVERY 12 HOURS SUBQ 06/21/17 09:00 07/21/17 08:59 06/21/17 09:01 Hydralazine HCl (Apresoline) 10 mg Q6HR GT 06/21/17 18:00 07/21/17 17:59 Insulin Aspart (NovoLOG) EVERY 6 HOURS SUBQ 06/21/17 12:00 07/21/17 06:29 06/21/17 11:30 Levothyroxine Sodium (Synthroid) 50 mcg ACBREAKFAST GT 06/21/17 06:30 07/21/17 06:29 06/21/17 06:44 Lorazepam (Ativan 2mg/ml 1ml) 2 mg Q3H PRN IV For Anxiety 06/21/17 15:45 06/28/17 15:44 06/21/17 15:44 Metoprolol Tartrate (Lopressor) 50 mg EVERY 12 HOURS GT 06/21/17 09:00 07/21/17 08:59 1/4/18 08:59 Nitroglycerin (Ntg) 0.4 mg Q5M PRN SL CHEST PAIN 06/21/17 01:15 07/21/17 01:14 Sodium Chloride 1,000 ml @ 100 mls/hr Q10H IV 06/21/17 00:45 07/21/17 00:44 06/21/17 11:28 Temazepam (Restoril) 15 mg BEDTIME PRN ORAL Insomnia 06/21/17 01:15 06/28/17 01:14 Vancomycin HCl (Vanco rx to dose) 1 ea DAILY PRN MISC Per rx protocol 06/21/17 11:15 07/21/17 11:14 Assessment/Plan Assessment/Plan Abx: IV Vanco 06/21- Amikacin 06/21- CEfepime x1 06/20 Levaquin x1 06/20 Metronidazole x1 06/20 Assessment: Sepsis 2ry to HCAP -CXR: There is infiltrate in the left infrahilar region. There is some atelectasis at the right lung base. There is also retrocardiac consolidation -sp cx -u./a WBC 5-10, nit neg, leuk est +1, ucx p -Bcx p Acute hypoxic resp failure s/p intubation 06/20 Fever/leukocytosis- leukocytosis, worsening BOOGIE, worsening Lactic acidosis- resolved Recent admission at OSH for sepsis, s/p IV abx (~1 wk [employer]) Recent gastritis (dx by EGD) Hx of encephalopathy -05/22 CT head: No evidence of acute intracranial hemorrhage, mass effect or cortical edema. MRI may be obtained for more sensitive evaluation as clinically indicated. Stable chronic infarct in the right frontal lobe. Cerebral and cerebellar atrophy greater than expected for age. Clinical correlation recommended. Mild periventricular hypoattenuation suggestive of chronic ischemic microvascular changes. -previous admission:nical correlation recommended. Mild periventricular hypoattenuation suggestive of chronic ischemic microvascular changes. Small area of right frontal encephalomalacia suggestive of old infarct. -UDS neg -TSH normal -Neg: HIV ag/ab, RPR, CrAg serum, FTA-ab -Brain MRI: Chronic and age-related changes. Old right frontal infarct. Negative for acute intracranial bleed, mass effect, or acute infarct hx of VRE and MRSA colonization HTN, CKD, DM2, bipolar dz/schizophrenia, GERD, cardiac arrhythmia, Dementia, CAD with prior MA, MS, osteoporosis, asthma, VIt D def, hypothyroidism, HLD, dysphagia s/p GT, R MCA CVA with left hemiplegia, s/p trach Plan: -Continue IV Vancomycin #1 and switch IV Amikacin to Meropenem pending cultures -f/u cx -Monitor CBC/BMP, temperatures -ETT care -aspiration precautions Thank you for this consultation. Will continue to follow along with you. Discussed with JENY. Hellen Hutchison M.D. Jun 21, 2017 17:20
[2017-06-21] MEDS: HydrALAZINE 10mg Tab GT SCH (18:56)
[2017-06-21] MEDS: Meropenem 1 GM in NS 55 ML IVPB SCH (21:37)
[2017-06-22] VITALS (24 sets, daily range): BP systolic 100–138; BP diastolic 5–104
[2017-06-22] MEDS: HydrALAZINE 10mg Tab GT SCH ×4 (00:08→17:57)
[2017-06-22] MEDS: NovoLOG Insulin Flexpen SUBQ SCH ×4 (00:12→17:58)
--- NOTE | 2017-06-22 01:15 | Consultation ---
DATE OF CONSULTATION: 06/20/2017 CARDIOLOGY CONSULTATION CONSULTING PHYSICIAN: Ulisses Gaston M.D. REQUESTING PHYSICIAN: Martina Morales M.D. REASON FOR CONSULTATION: Elevated troponin level, evaluate for acute myocardial infarction. HISTORY OF PRESENT ILLNESS: This is a 62-year-old male, who resides at a [facility] facility. Approximately a week prior to admission, he was hospitalized at [facility] with sepsis and was treated with antimicrobials. He had an upper gastrointestinal study done because of Hemoccult-positive stool and was noted to have acute gastritis. Following his return to the [facility] facility, he became febrile again with a rapid heart rate and he was transferred by 911 paramedics to this emergency room. In the emergency room, he was noted to be in acute respiratory failure and required intubation and mechanical ventilation to be initiated. He was pancultured. He was noted to have abnormal cardiac enzymes prompting this consultation. PAST MEDICAL HISTORY: History of respiratory failure and prior tracheostomy, dysphagia with gastrostomy tube, CVA with right hemiplegia, paroxysmal atrial fibrillation, hyperlipidemia, and gastritis. MEDICATIONS: Prior to admission are reviewed and reconciled. ALLERGIES: None. FAMILY HISTORY: Noncontributory. SOCIAL HISTORY: Negative for smoking, alcohol, or substance abuse. REVIEW OF SYSTEMS: Cannot be obtained, however, pertinent data is as outlined above following a detailed discussion with the primary physician and review of available records. PHYSICAL EXAMINATION: VITAL SIGNS: Blood pressure 144/83, pulse 120, respirations 30, and temperature 100.4. HEENT: Temporal wasting. Pale conjunctivae. Dry mucous membranes. Orally intubated. LUNGS: No accessory muscle use. Coarse breath sounds. Scattered rhonchi. HEART: Regular rhythm and rate. Normal S1, S2 with a fourth heart sound. ABDOMEN: Soft and nontender. EXTREMITIES: Without edema. NEUROLOGIC: The patient has a tremor. His exam was limited due to his somnolence. LABORATORY DATA: White count 13.9 and hemoglobin 11.5. Sodium 148, potassium 4.1, chloride 110, and bicarb 29. Lactic acid 2.5. Pro-natriuretic peptide over 10,000. Troponin 0.291. Chest x-ray with retrocardiac infiltrate and small pleural effusion. EKG reveals sinus tachycardia and inferior infarction of indeterminate age. IMPRESSION: 1. Acute respiratory failure. 2. Aspiration pneumonia, healthcare-acquired. 3. Lactic acidosis. 4. Acute myocardial ischemia and possible [id number] myocardial infarction. 5. Cerebrovascular accident with right hemiparesis. 6. Dysphagia with gastrostomy tube. 7. Acute renal failure. 8. Hypovolemia. 9. Dehydration. 10. Hypernatremia. 11. Critical and guarded. PLAN: 1. Intensive care unit care. 2. Ventilator support. 3. Broad-spectrum antibiotics. 4. Follow up culture results. 5. Serial troponin levels. 6. Serial lactic acid levels. 7. Hypotonic fluid hydration. 8. Replace electrolytes as needed. 9. Stress ulcer and DVT prophylaxes. 10. Skin care. 11. Antiplatelet therapy with aspirin. 12. Cautious titration of antihypertensive drugs. 13. Beta-abdoulaye therapy to be included in regimen. Ulisses Gaston M.D. DR: GISELLE JOB#: [id number] CC:
--- NOTE | 2017-06-22 04:30 | Progress Note ---
DATE: 06/21/2017 CARDIOLOGY PROGRESS NOTE SUBJECTIVE: The patient remains in the intensive care unit. Orally intubated. Mechanically ventilated. His blood pressure parameters are more stable. Monitored rhythm, sinus. OBJECTIVE: VITAL SIGNS: Blood pressure 141/69, pulse 75, respirations 18. No fever spikes. LUNGS: Coarse breath sounds. Scattered rhonchi. HEART: Regular rhythm and rate. Normal S1, S2. ABDOMEN: Soft. EXTREMITIES: Trace edema. G-tube intact. LABORATORY DATA: Sodium 151, potassium 3.9, bicarbonate 20, BUN 57, creatinine 2.7. Glucose 375. Troponin 0.211. B12 and folate normal. IMPRESSION: 1. Respiratory failure. 2. Sepsis. 3. Pneumonia. 4. Dehydration. 5. Hyponatremia. 6. Acute renal failure. 7. Respiratory acidosis. 8. Hyperchloremia. 9. Chronic anemia. 10. Acute myocardial ischemia and possible non-ST elevation infarction. 11. Acute on chronic diastolic congestive heart failure. 12. Type 2 diabetes mellitus with hyperglycemia. 13. Remains critical and guarded. PLAN: 1. Intensive care unit care. 2. Ventilator support. 3. Broad-spectrum antibiotics. 4. Follow up cultures. 5. Hypotonic IV fluid hydration. 6. Monitor cardiorenal parameters and volume status. 7. Review echocardiogram. 8. Continue anti-platelet therapy. 9. Maintain current antihypertensive regimen including beta blockade. 10. Check lipid panel. 11. We will follow. Ulisses Gaston M.D. DR: MAGGIE JOB#: [id number] CC:
[2017-06-22 07:15] LABS: HEMATOCRIT 27.2 % (42.0-52.0); HEMOGLOBIN 8.8 G/DL (14.2-18.0); MEAN CORPUSCULAR VOLUME 94 FL (80-99); PLATELET COUNT 199 K/UL (150-450); RED CELL DISTRIBUTION WIDTH 15.9 % (11.6-14.8); WHITE BLOOD COUNT 16.9 K/UL (4.8-10.8)
[2017-06-22 07:36] LABS: ALANINE AMINOTRANSFERASE 26 U/L (12-78); ALBUMIN 1.6 G/DL (3.4-5.0); ALBUMIN/GLOBULIN RATIO 0.4 (1.0-2.7); ALKALINE PHOSPHATASE 103 U/L (46-116); ANION GAP 8 mmol/L (5-15); ASPARTATE AMINO TRANSFERASE 22 U/L (15-37); BILIRUBIN,TOTAL 0.2 MG/DL (0.2-1.0); BLOOD UREA NITROGEN 54 mg/dL (7-18); CALCIUM 7.1 MG/DL (8.5-10.1); CARBON DIOXIDE 26 MMOL/L (21-32); CHLORIDE 114 MMOL/L (98-107); CHOLESTEROL 111 MG/DL (< 200); CREATININE 2.2 MG/DL (0.55-1.30); HDL CHOLESTEROL 30 MG/DL (40-60); PHOSPHORUS 3.3 MG/DL (2.5-4.9); POTASSIUM 3.1 MMOL/L (3.5-5.1); SODIUM 148 MMOL/L (136-145); TRIGLYCERIDES 258 MG/DL (30-150)
[2017-06-22] MEDS: Metoprolol Tartrate 50mg tab GT SCH ×2 (08:44→21:29)
[2017-06-22] MEDS: Aspirin EC 81mg tab ORAL SCH (08:44)
[2017-06-22] MEDS: Heparin 5000 units/ml inj SUBQ SCH ×2 (08:46→21:00)
--- NOTE | 2017-06-22 08:56 | Diagnostic Imaging Report ---
Indication: Chronic renal failure Technique: Grayscale and duplex images of the kidneys, retroperitoneum, and bladder were obtained. Comparison: 05/22/2017 Findings: Right kidney measures 11.3 cm in length. Left kidney measures 12.2 cm in length. Both kidneys demonstrate normal echogenicity. No hydronephrosis. No focal abnormality. Normal inferior vena cava. Bladder is empty, contains a Cabrera catheter. Findings are unchanged Impression: Negative. No significant change management one month.
[2017-06-22] MEDS: Meropenem 1 GM in NS 55 ML IVPB SCH ×2 (09:25→21:43)
--- NOTE | 2017-06-22 09:45 | Progress Note ---
DATE: 06/21/2017 NOTE: POOR AUDIO QUALITY SUBJECTIVE: The patient is awake, alert, lethargic, afebrile and hemodynamically stable. PHYSICAL EXAMINATION: VITAL SIGNS: Blood pressure 137/62, his pulse is 69, respirations 16, and temperature 98.5. HEENT: Eyes were normal. ENT, mucous membranes were moist and intact. NECK: Supple with no JVD without lymph nodes. LUNGS: Clear. HEART: Normal sounds with regular heart beat. ABDOMEN: Soft and nontender with normal bowel sounds. Gastrostomy site is clean. EXTREMITIES: Warm without cyanosis, clubbing, or edema. LABORATORY AND DIAGNOSTIC DATA: Hemoglobin is 9.4, hematocrit 26.3 with MCV of 95, WBC of 15.3, and platelet count of . His ESR is 125. His retic count is 1.2. His BUN and creatinine is 57 and 2.7 respectively. His sodium is 151, potassium 3.9, chloride 114, and CO2 is 20. His calcium is 7.3. His uric acid is 7.7. His iron is 71, his iron saturation is 30. LDH is 329. Total CK 99. B12 and folate are . His chest x-ray show slightly perihilar infiltrate and overall unchanged. IMPRESSION: The patient has respiratory failure. We will albuterol sulfate and ipratropium bromide inhalation therapy every four hours. The patient has urosepsis. He is on meropenem 500 mg IV piggyback q.12 h. His WBC has increased. PLAN: . Martina Morales M.D. DR: DEONNA JOB#: [id number] CC:
--- NOTE | 2017-06-22 10:01 | Infectious Diseases Prog Note ---
Assessment/Plan Assessment/Plan Abx: IV Vanco 06/21- Amikacin 06/21 Meropenem 06/21- CEfepime x1 06/20 Levaquin x1 06/20 Metronidazole x1 06/20 Assessment: Sepsis 2ry to HCAP -CXR: There is infiltrate in the left infrahilar region. There is some atelectasis at the right lung base. There is also retrocardiac consolidation -sp cx: +3 GNB (ID and sensi pending) -u./a WBC 5-10, nit neg, leuk est +1, ucx 10-20K C. albicans (colonzier) -Bcx p 06/21 GPC bacteremia- ?real vs contaminant -06/20 BCx 06/21 GPC clusters, 06/21 Bcx NTD x4 Acute hypoxic resp failure s/p intubation 06/20 Fever/leukocytosis- leukocytosis, worsening BOOGIE, improving Lactic acidosis- resolved Recent admission at OSH for sepsis, s/p IV abx (~1 wk [employer]) Recent gastritis (dx by EGD) Hx of encephalopathy -05/22 CT head: No evidence of acute intracranial hemorrhage, mass effect or cortical edema. MRI may be obtained for more sensitive evaluation as clinically indicated. Stable chronic infarct in the right frontal lobe. Cerebral and cerebellar atrophy greater than expected for age. Clinical correlation recommended. Mild periventricular hypoattenuation suggestive of chronic ischemic microvascular changes. -previous admission:nical correlation recommended. Mild periventricular hypoattenuation suggestive of chronic ischemic microvascular changes. Small area of right frontal encephalomalacia suggestive of old infarct. -UDS neg -TSH normal -Neg: HIV ag/ab, RPR, CrAg serum, FTA-ab -Brain MRI: Chronic and age-related changes. Old right frontal infarct. Negative for acute intracranial bleed, mass effect, or acute infarct hx of VRE and MRSA colonization HTN, CKD, DM2, bipolar dz/schizophrenia, GERD, cardiac arrhythmia, Dementia, CAD with prior SC, MS, osteoporosis, asthma, VIt D def, hypothyroidism, HLD, dysphagia s/p GT, R MCA CVA with left hemiplegia, s/p trach Plan: -Continue IV Vancomycin #2 and Meropenem #2 and give Amikacin x1 pending cultures -06/21 SP Amikacin x1 -f/u cx -Monitor CBC/BMP, temperatures; Trend WBC -ETT care -aspiration precautions Thank you for this consultation. Will continue to follow along with you. Discussed with RN. Subjective Allergies: Coded Allergies: No Known Allergies (Unverified , 05/11/17) Subjective afebril in >24hrs leukocytosis rising repeat Bcx NTD sp cx growing GNRs Objective Vital Signs Last 24 Hour Vital Signs Date Time Temp Pulse Resp B/P (MAP) Pulse Ox O2 Delivery O2 Flow Rate FiO2 06/22/17 09:28 72 17 40 06/22/17 09:00 79 16 124/100 100 Mechanical Ventilator 40 06/22/17 08:45 85 122/56 06/22/17 08:44 83 122/56 06/22/17 08:00 98.0 82 17 115/57 100 Mechanical Ventilator 40 06/22/17 08:00 40 06/22/17 08:00 85 06/22/17 07:09 89 19 40 06/22/17 07:00 80 15 131/61 100 Mechanical Ventilator 40 06/22/17 06:15 130/62 06/22/17 06:00 80 15 131/61 100 Mechanical Ventilator 40 06/22/17 05:00 80 15 121/45 100 Mechanical Ventilator 40 06/22/17 04:41 78 16 40 06/22/17 04:00 40 06/22/17 04:00 98.6 80 15 135/45 100 Mechanical Ventilator 40 06/22/17 04:00 79 06/22/17 03:17 85 15 40 06/22/17 03:00 80 15 115/66 100 Mechanical Ventilator 40 06/22/17 02:00 79 15 109/61 100 Mechanical Ventilator 40 06/22/17 01:15 78 15 40 06/22/17 01:00 69 16 125/61 100 Mechanical Ventilator 40 06/22/17 00:08 141/69 06/22/17 00:00 78 06/22/17 00:00 69 16 117/5 100 Mechanical Ventilator 40 06/22/17 00:00 40 06/21/17 23:00 73 15 124/56 100 Mechanical Ventilator 40 06/21/17 22:30 70 15 40 06/21/17 22:00 69 16 123/62 100 Mechanical Ventilator 40 06/21/17 21:04 93 15 40 06/21/17 21:00 89 16 123/67 100 Mechanical Ventilator 40 06/21/17 21:00 89 16 123/67 100 Mechanical Ventilator 40 06/21/17 20:43 91 142/51 06/21/17 20:00 98.4 87 16 142/51 100 Mechanical Ventilator 40 06/21/17 20:00 97 06/21/17 20:00 40 06/21/17 19:05 80 15 40 06/21/17 19:00 84 16 101/52 100 Mechanical Ventilator 40 06/21/17 18:56 131/77 06/21/17 18:00 88 16 131/77 100 Mechanical Ventilator 40 06/21/17 17:06 15 18 40 06/21/17 17:00 91 15 91/52 100 Mechanical Ventilator 40 06/21/17 16:00 97 06/21/17 16:00 98.5 97 16 134/77 98 Mechanical Ventilator 40 06/21/17 16:00 40 06/21/17 15:26 98 18 40 06/21/17 15:00 97 16 138/67 100 Mechanical Ventilator 40 06/21/17 14:00 87 15 133/63 100 Mechanical Ventilator 40 06/21/17 13:25 77 15 40 06/21/17 13:00 98.3 79 15 110/57 100 Mechanical Ventilator 40 06/21/17 12:00 82 06/21/17 12:00 99.0 83 15 104/41 99 Mechanical Ventilator 40 06/21/17 12:00 40 06/21/17 11:04 76 15 40 06/21/17 11:00 75 15 101/47 100 Mechanical Ventilator 40 06/21/17 10:00 75 15 100/49 100 Mechanical Ventilator 40 Height (Feet): 5 Height (Inches): 9.00 Weight (Pounds): 172 Objective Status: sedated Condition: critical HEENT: atraumatic Lungs: clear Heart: HR/BP stable Abdomen: non-tender, active bowel sounds Extremities: no C/C/E Decubiti: location Microbiology Date/Time Source Procedure Growth Status 06/21/17 00:55 Blood Blood Culture - Preliminary NO GROWTH AFTER 24 HOURS Resulted 06/21/17 00:50 Blood Blood Culture - Preliminary NO GROWTH AFTER 24 HOURS Resulted 06/20/17 00:11 Blood Blood Culture - Preliminary NO GROWTH AFTER 48 HOURS Resulted 06/20/17 00:00 Blood Blood Culture - Preliminary Resulted 06/21/17 01:30 Sputum Gram Stain - Final Resulted 06/21/17 01:30 Sputum Culture - Preliminary Gram Negative Bacillus 1 Resulted 06/20/17 03:00 Urine,Clean Catch Urine Culture - Final Scarlet Albicans Complete 06/20/17 23:10 Sacral Rectal Gram Stain - Final Resulted 06/20/17 23:10 Sacral Rectal Wound Culture Pending Resulted Laboratory Tests Test 06/21/17 11:55 06/22/17 05:15 06/22/17 07:55 Erythrocyte Sedimentation Rate 125 MM/HR (0-20) H Reticulocyte Count 1.2 % (0.0-2.0) Prothrombin Time 12.3 SEC (9.30-11.50) H Prothromb Time International Ratio 1.2 (0.9-1.1) H Activated Partial Thromboplast Time 30 SEC (23-33) Uric Acid 7.7 MG/DL (2.6-7.2) H Iron Level 31 ug/dL (50-175) L Total Iron Binding Capacity 102 ug/dL (250-450) L Percent Iron Saturation 30 % (15-50) Unsaturated Iron Binding 71 ug/dL (112-346) L Lactate Dehydrogenase 329 U/L (81-234) H Total Creatine Kinase 89 U/L (26-308) Troponin I 0.211 ng/mL (0.000-0.056) 0.085 ng/mL (0.000-0.056) Vitamin B12 Level 1906 PG/ML (193-986) H Folate 61.9 NG/ML (8.6-58.9) H White Blood Count 16.9 K/UL (4.8-10.8) H Red Blood Count 2.90 M/UL (4.70-6.10) L Hemoglobin 8.8 G/DL (14.2-18.0) L Hematocrit 27.2 % (42.0-52.0) L Mean Corpuscular Volume 94 FL (80-99) Mean Corpuscular Hemoglobin 30.2 PG (27.0-31.0) Mean Corpuscular Hemoglobin Concent 32.2 G/DL (32.0-36.0) Red Cell Distribution Width 15.9 % (11.6-14.8) H Platelet Count 199 K/UL (150-450) Mean Platelet Volume 7.1 FL (6.5-10.1) Neutrophils (%) (Auto) % (45.0-75.0) Lymphocytes (%) (Auto) % (20.0-45.0) Monocytes (%) (Auto) % (1.0-10.0) Eosinophils (%) (Auto) % (0.0-3.0) Basophils (%) (Auto) % (0.0-2.0) Differential Total Cells Counted 100 Neutrophils % (Manual) 96 % (45-75) H Lymphocytes % (Manual) 3 % (20-45) L Monocytes % (Manual) 1 % (1-10) Eosinophils % (Manual) 0 % (0-3) Basophils % (Manual) 0 % (0-2) Band Neutrophils 0 % (0-8) Platelet Estimate Adequate Platelet Morphology Normal Hypochromasia 1+ Anisocytosis 1+ Sodium Level 148 MMOL/L (136-145) H Potassium Level 3.1 MMOL/L (3.5-5.1) L Chloride Level 114 MMOL/L (98-107) H Carbon Dioxide Level 26 MMOL/L (21-32) Anion Gap 8 mmol/L (5-15) Blood Urea Nitrogen 54 mg/dL (7-18) H Creatinine 2.2 MG/DL (0.55-1.30) H Estimat Glomerular Filtration Rate 30.3 mL/min (>60) Glucose Level 170 MG/DL (74-106) #H Calcium Level 7.1 MG/DL (8.5-10.1) L Phosphorus Level 3.3 MG/DL (2.5-4.9) Magnesium Level 2.4 MG/DL (1.8-2.4) Total Bilirubin 0.2 MG/DL (0.2-1.0) Aspartate Amino Transf (AST/SGOT) 22 U/L (15-37) Alanine Aminotransferase (ALT/SGPT) 26 U/L (12-78) Alkaline Phosphatase 103 U/L (46-116) Total Protein 5.9 G/DL (6.4-8.2) L Albumin 1.6 G/DL (3.4-5.0) L Globulin 4.3 g/dL Albumin/Globulin Ratio 0.4 (1.0-2.7) L Triglycerides Level 258 MG/DL (30-150) H Cholesterol Level 111 MG/DL (< 200) LDL Cholesterol 51 mg/dL (<100) HDL Cholesterol 30 MG/DL (40-60) L Cholesterol/HDL Ratio 3.7 (3.3-4.4) Arterial Blood pH 7.434 (7.350-7.450) Arterial Blood Partial Pressure CO2 36.8 mmHg (35.0-45.0) Arterial Blood Partial Pressure O2 360.2 mmHg (75.0-100.0) H Arterial Blood HCO3 24.1 mmol/L (22.0-26.0) Arterial Blood Oxygen Saturation 99.1 % (92.0-98.0) H Arterial Blood Base Excess 0 Khang Test Positive Current Medications Medications (Trade) Dose Ordered Sig/Willem Route PRN Reason Start Time Stop Time Status Last Admin Dose Admin Acetaminophen (Tylenol) 650 mg DAILY PRN ORAL Temp > 100.5 06/21/17 01:15 07/21/17 01:14 Acetaminophen (Tylenol) 650 mg Q6H PRN ORAL MILD PAIN (1-4). NTE 3GM/DAY 06/21/17 01:15 07/21/17 01:14 Acetaminophen (Tylenol) 1,000 mg Q6H PRN ORAL MODERATE PAIN (5-7) 06/21/17 01:15 07/21/17 01:14 Amlodipine Besylate (Norvasc) 10 mg DAILY GT 06/22/17 09:00 07/21/17 08:59 06/22/17 08:45 Aspirin (Ecotrin) 81 mg DAILY ORAL 06/21/17 09:00 07/21/17 08:59 06/22/17 08:44 Bisacodyl (Dulcolax) 10 mg DAILY PRN RECTAL constipationIF MOM INEFFECTIVE 06/21/17 01:15 07/21/17 01:14 Clonidine HCl (Catapres) 0.1 mg Q4H PRN GT bp of 160 syst and above 06/21/17 17:00 07/21/17 16:59 Dextrose (Dextrose 50%) STAT PRN IV Hypoglycemia 06/21/17 06:45 07/21/17 06:44 Famotidine (Pepcid) 20 mg DAILY ORAL 06/22/17 09:00 07/22/17 08:59 06/22/17 09:25 Heparin Sodium (Porcine) (Heparin 5000 units/ml) 5,000 units EVERY 12 HOURS SUBQ 06/21/17 09:00 07/21/17 08:59 06/22/17 08:46 Hydralazine HCl (Apresoline) 10 mg Q6HR GT 06/21/17 18:00 07/21/17 17:59 06/22/17 06:15 Insulin Aspart (NovoLOG) EVERY 6 HOURS SUBQ 06/21/17 12:00 07/21/17 06:29 06/22/17 06:17 Levothyroxine Sodium (Synthroid) 50 mcg ACBREAKFAST GT 06/21/17 06:30 07/21/17 06:29 06/22/17 06:18 Lorazepam (Ativan 2mg/ml 1ml) 2 mg Q3H PRN IV For Anxiety 06/21/17 15:45 06/28/17 15:44 06/21/17 15:44 Meropenem 1 gm/ Sodium Chloride 55 ml @ 110 mls/hr Q12H IVPB 06/21/17 22:00 06/26/17 21:59 06/22/17 09:25 Metoprolol Tartrate (Lopressor) 50 mg EVERY 12 HOURS GT 06/21/17 09:00 07/21/17 08:59 06/22/17 08:44 Nitroglycerin (Ntg) 0.4 mg Q5M PRN SL CHEST PAIN 06/21/17 01:15 07/21/17 01:14 Sodium Chloride 1,000 ml @ 100 mls/hr Q10H IV 06/21/17 00:45 07/21/17 00:44 06/21/17 20:48 Temazepam (Restoril) 15 mg BEDTIME PRN ORAL Insomnia 06/21/17 01:15 06/28/17 01:14 Vancomycin HCl (Vanco rx to dose) 1 ea DAILY PRN MISC Per rx protocol 06/21/17 11:15 07/21/17 11:14 Hellen Hutchison M.D. Jun 22, 2017 10:00
[2017-06-22 10:58] LABS: APPEARANCE,URINE VERY CLOUDY; BILIRUBIN, URINE NEGATIVE (NEGATIVE); COLOR,URINE PALE YELLOW; GLUCOSE, URINE (UA) NEGATIVE (NEGATIVE); KETONES,URINE NEGATIVE (NEGATIVE); LEUKOCYTE ESTERASE ,URINE 3+ (NEGATIVE); NITRITE,URINE NEGATIVE (NEGATIVE); PH,URINE 5 (4.5-8.0); PROTEIN,URINE 3+ (NEGATIVE); UROBILINOGEN,URINE NORMAL MG/DL (0.0-1.0)
--- NOTE | 2017-06-22 11:39 | Diagnostic Imaging Report ---
Indication: Dyspnea Technique: One view of the chest Comparison: 06/21/2017 Findings: Lungs and pleural spaces are clear. Heart size is normal. Endotracheal tube remains. Gastrostomy remains. Findings are unchanged Impression: Unchanged, over one day, findings as above.
--- NOTE | 2017-06-22 11:42 | Pulmonolgy Critical Care Note ---
Critical Care - Asmt/Plan Problems: (1) Respiratory failure with hypoxia (2) Acute encephalopathy (3) Urosepsis (4) Non-ST elevation (NSTEMI) myocardial infarction (5) History of CVA (cerebrovascular accident) (6) ATN (acute tubular necrosis) (7) Feeding by G-tube Respiratory: monitor respiratory rate, adjust FIO2, CXR, other - start in a few days. Cardiac: continue to monitor HR/BP Renal: F/U I&O, keep IV fluid Infectious Disease: check cultures Gastrointestinal: continue feedings/current rate Endocrine: check TSH, continue sliding scale insulin Hematologic: monitor H/H, transfuse if hgb<8.5 Neurologic: PRN Ativan, keep patient comfortable Affect: PRN ativan Prophylaxis: Protonix Time Spent (Minutes): 40 Notes Reviewed: health center assistant, cardio, renal Discussed with: nurses, consultants, upper caserindustrial safety and health manager - Objective Last 24 Hour Vital Signs Date Time Temp Pulse Resp B/P (MAP) Pulse Ox O2 Delivery O2 Flow Rate FiO2 06/22/17 10:58 74 24 40 06/22/17 09:28 72 17 40 06/22/17 09:00 79 16 124/100 100 Mechanical Ventilator 40 06/22/17 08:45 85 122/56 06/22/17 08:44 83 122/56 06/22/17 08:00 98.0 82 17 115/57 100 Mechanical Ventilator 40 06/22/17 08:00 40 06/22/17 08:00 85 06/22/17 07:09 89 19 40 06/22/17 07:00 80 15 131/61 100 Mechanical Ventilator 40 06/22/17 06:15 130/62 06/22/17 06:00 80 15 131/61 100 Mechanical Ventilator 40 06/22/17 05:00 80 15 121/45 100 Mechanical Ventilator 40 06/22/17 04:41 78 16 40 06/22/17 04:00 40 06/22/17 04:00 98.6 80 15 135/45 100 Mechanical Ventilator 40 06/22/17 04:00 79 06/22/17 03:17 85 15 40 06/22/17 03:00 80 15 115/66 100 Mechanical Ventilator 40 06/22/17 02:00 79 15 109/61 100 Mechanical Ventilator 40 06/22/17 01:15 78 15 40 06/22/17 01:00 69 16 125/61 100 Mechanical Ventilator 40 06/22/17 00:08 141/69 06/22/17 00:00 78 06/22/17 00:00 69 16 117/5 100 Mechanical Ventilator 40 06/22/17 00:00 40 06/21/17 23:00 73 15 124/56 100 Mechanical Ventilator 40 06/21/17 22:30 70 15 40 06/21/17 22:00 69 16 123/62 100 Mechanical Ventilator 40 06/21/17 21:04 93 15 40 06/21/17 21:00 89 16 123/67 100 Mechanical Ventilator 40 06/21/17 21:00 89 16 123/67 100 Mechanical Ventilator 40 06/21/17 20:43 91 142/51 06/21/17 20:00 98.4 87 16 142/51 100 Mechanical Ventilator 40 06/21/17 20:00 97 06/21/17 20:00 40 06/21/17 19:05 80 15 40 06/21/17 19:00 84 16 101/52 100 Mechanical Ventilator 40 06/21/17 18:56 131/77 06/21/17 18:00 88 16 131/77 100 Mechanical Ventilator 40 06/21/17 17:06 15 18 40 06/21/17 17:00 91 15 91/52 100 Mechanical Ventilator 40 06/21/17 16:00 97 06/21/17 16:00 98.5 97 16 134/77 98 Mechanical Ventilator 40 06/21/17 16:00 40 06/21/17 15:26 98 18 40 06/21/17 15:00 97 16 138/67 100 Mechanical Ventilator 40 06/21/17 14:00 87 15 133/63 100 Mechanical Ventilator 40 06/21/17 13:25 77 15 40 06/21/17 13:00 98.3 79 15 110/57 100 Mechanical Ventilator 40 06/21/17 12:00 82 06/21/17 12:00 99.0 83 15 104/41 99 Mechanical Ventilator 40 06/21/17 12:00 40 Status: sedated Condition: critical HEENT: atraumatic Neck: full ROM Lungs: clear Heart: HR/BP stable Abdomen: soft, non-tender, feeding tube Extremities: no C/C/E Decubiti: location, stage Micro: Microbiology Date/Time Source Procedure Growth Status 06/21/17 00:55 Blood Blood Culture - Preliminary NO GROWTH AFTER 24 HOURS Resulted 06/21/17 00:50 Blood Blood Culture - Preliminary NO GROWTH AFTER 24 HOURS Resulted 06/20/17 00:11 Blood Blood Culture - Preliminary Resulted 06/20/17 00:00 Blood Blood Culture - Preliminary Resulted 06/21/17 01:30 Sputum Gram Stain - Final Resulted 06/21/17 01:30 Sputum Culture - Preliminary Gram Negative Bacillus 1 Resulted 06/20/17 03:00 Urine,Clean Catch Urine Culture - Final Scarlet Albicans Complete 06/20/17 23:10 Sacral Rectal Gram Stain - Final Resulted 06/20/17 23:10 Sacral Rectal Wound Culture - Preliminary Resulted Accucheck: 198 Critical Care - Subjective ROS Limited/Unobtainable: Yes - 3 ICU Day: 3 Intubation Day: 3 Interval Events: no new events, comfortable Condition: critical EKG Rhythm: Sinus Rhythm FI02: 40 Vent Support Breath Rate: 15 Vent Support Mode: AC Vent Tidal Volume: 600 Sputum Amount: Scant PEEP: 5.0 PIP: 29 Fluids: 1/2 NS 100 cc/hour Tube Feeding Amount: 0 I&O: Intake and Output 06/21/17 06/22/17 19:00 07:00 Intake Total 1347.000 ml 1465 ml Output Total 895 ml 830 ml Balance 452.000 ml 635 ml Free Water 50 ml IV Total 1137.000 ml 1255 ml Tube Feeding 40 ml 210 ml Other 120 ml Output Urine Total 895 ml 830 ml CXR: Et in good position ET-Tube: 7.5 ET Position: 22 Labs: Laboratory Tests Test 06/21/17 11:55 06/22/17 05:15 06/22/17 07:55 06/22/17 08:00 Erythrocyte Sedimentation Rate 125 MM/HR (0-20) H Reticulocyte Count 1.2 % (0.0-2.0) Prothrombin Time 12.3 SEC (9.30-11.50) H Prothromb Time International Ratio 1.2 (0.9-1.1) H Activated Partial Thromboplast Time 30 SEC (23-33) Uric Acid 7.7 MG/DL (2.6-7.2) H Iron Level 31 ug/dL (50-175) L Total Iron Binding Capacity 102 ug/dL (250-450) L Percent Iron Saturation 30 % (15-50) Unsaturated Iron Binding 71 ug/dL (112-346) L Lactate Dehydrogenase 329 U/L (81-234) H Total Creatine Kinase 89 U/L (26-308) Troponin I 0.211 ng/mL (0.000-0.056) 0.085 ng/mL (0.000-0.056) Vitamin B12 Level 1906 PG/ML (193-986) H Folate 61.9 NG/ML (8.6-58.9) H White Blood Count 16.9 K/UL (4.8-10.8) H Red Blood Count 2.90 M/UL (4.70-6.10) L Hemoglobin 8.8 G/DL (14.2-18.0) L Hematocrit 27.2 % (42.0-52.0) L Mean Corpuscular Volume 94 FL (80-99) Mean Corpuscular Hemoglobin 30.2 PG (27.0-31.0) Mean Corpuscular Hemoglobin Concent 32.2 G/DL (32.0-36.0) Red Cell Distribution Width 15.9 % (11.6-14.8) H Platelet Count 199 K/UL (150-450) Mean Platelet Volume 7.1 FL (6.5-10.1) Neutrophils (%) (Auto) % (45.0-75.0) Lymphocytes (%) (Auto) % (20.0-45.0) Monocytes (%) (Auto) % (1.0-10.0) Eosinophils (%) (Auto) % (0.0-3.0) Basophils (%) (Auto) % (0.0-2.0) Differential Total Cells Counted 100 Neutrophils % (Manual) 96 % (45-75) H Lymphocytes % (Manual) 3 % (20-45) L Monocytes % (Manual) 1 % (1-10) Eosinophils % (Manual) 0 % (0-3) Basophils % (Manual) 0 % (0-2) Band Neutrophils 0 % (0-8) Platelet Estimate Adequate Platelet Morphology Normal Hypochromasia 1+ Anisocytosis 1+ Sodium Level 148 MMOL/L (136-145) H Potassium Level 3.1 MMOL/L (3.5-5.1) L Chloride Level 114 MMOL/L (98-107) H Carbon Dioxide Level 26 MMOL/L (21-32) Anion Gap 8 mmol/L (5-15) Blood Urea Nitrogen 54 mg/dL (7-18) H Creatinine 2.2 MG/DL (0.55-1.30) H Estimat Glomerular Filtration Rate 30.3 mL/min (>60) Glucose Level 170 MG/DL (74-106) #H Calcium Level 7.1 MG/DL (8.5-10.1) L Phosphorus Level 3.3 MG/DL (2.5-4.9) Magnesium Level 2.4 MG/DL (1.8-2.4) Total Bilirubin 0.2 MG/DL (0.2-1.0) Aspartate Amino Transf (AST/SGOT) 22 U/L (15-37) Alanine Aminotransferase (ALT/SGPT) 26 U/L (12-78) Alkaline Phosphatase 103 U/L (46-116) Total Protein 5.9 G/DL (6.4-8.2) L Albumin 1.6 G/DL (3.4-5.0) L Globulin 4.3 g/dL Albumin/Globulin Ratio 0.4 (1.0-2.7) L Triglycerides Level 258 MG/DL (30-150) H Cholesterol Level 111 MG/DL (< 200) LDL Cholesterol 51 mg/dL (<100) HDL Cholesterol 30 MG/DL (40-60) L Cholesterol/HDL Ratio 3.7 (3.3-4.4) Arterial Blood pH 7.434 (7.350-7.450) Arterial Blood Partial Pressure CO2 36.8 mmHg (35.0-45.0) Arterial Blood Partial Pressure O2 360.2 mmHg (75.0-100.0) H Arterial Blood HCO3 24.1 mmol/L (22.0-26.0) Arterial Blood Oxygen Saturation 99.1 % (92.0-98.0) H Arterial Blood Base Excess 0 Khang Test Positive Urine Color Pale yellow Urine Appearance Very cloudy Urine pH 5 (4.5-8.0) Urine Specific [place] 1.015 (1.005-1.035) Urine Protein 3+ (NEGATIVE) H Urine Glucose (UA) Negative (NEGATIVE) Urine Ketones Negative (NEGATIVE) Urine Occult Blood 5+ (NEGATIVE) H Urine Nitrite Negative (NEGATIVE) Urine Bilirubin Negative (NEGATIVE) Urine Urobilinogen Normal MG/DL (0.0-1.0) Urine Leukocyte Esterase 3+ (NEGATIVE) H Urine RBC 10-15 /HPF (0 - 0) H Urine WBC 5-10 /HPF (0 - 0) H Urine Squamous Epithelial Cells Few /LPF (NONE/OCC) Urine Bacteria Few /HPF (NONE) Urine Yeast Few /HPF (NONE) H Urine Eosinophils Pending Urine Random Sodium 32 MEQ/L (20-110) Urine Potassium Timed 26 mmol/L (12-62) JESSE ZAVALA Jun 22, 2017 11:42
[2017-06-22] MEDS ORDERED: Amikacin 500 MG in NS 110 ML IV ONE (15:00)
--- NOTE | 2017-06-22 15:15 | Nephrology Progress Note ---
Assessment/Plan Problem List: (1) Acute renal failure (2) Respiratory failure requiring intubation (3) Urosepsis Assessment BOOGIE (acute kidney injury), Cr lowering Respiratory failure requiring intubation Respiratory failure with hypoxia Aspiration pneumonia, Urosepsis Anemia ACS (acute coronary syndrome), Non St Elevation [place] CHF (congestive heart failure) Acute encephalopathy GT feeding Plan plan: Hydrate- avoid Nephrotoxics monitor renal parameters Keep BP and BS in check Optimize pulmonary and cardiac support Subjective ROS Limited/Unobtainable: Yes Objective Objective Last 24 Hour Vital Signs Date Time Temp Pulse Resp B/P (MAP) Pulse Ox O2 Delivery O2 Flow Rate FiO2 06/22/17 12:53 81 16 40 06/22/17 12:22 126/73 06/22/17 12:00 98.1 79 16 126/73 100 Mechanical Ventilator 40 06/22/17 12:00 76 06/22/17 12:00 40 06/22/17 11:00 80 17 122/71 100 Mechanical Ventilator 40 06/22/17 10:58 74 24 40 06/22/17 10:00 76 17 137/66 100 Mechanical Ventilator 40 06/22/17 09:28 72 17 40 06/22/17 09:00 79 16 124/100 100 Mechanical Ventilator 40 06/22/17 08:45 85 122/56 06/22/17 08:44 83 122/56 06/22/17 08:00 98.0 82 17 115/57 100 Mechanical Ventilator 40 06/22/17 08:00 40 06/22/17 08:00 85 06/22/17 07:09 89 19 40 06/22/17 07:00 80 15 131/61 100 Mechanical Ventilator 40 06/22/17 06:15 130/62 06/22/17 06:00 80 15 131/61 100 Mechanical Ventilator 40 06/22/17 05:00 80 15 121/45 100 Mechanical Ventilator 40 06/22/17 04:41 78 16 40 06/22/17 04:00 40 06/22/17 04:00 98.6 80 15 135/45 100 Mechanical Ventilator 40 06/22/17 04:00 79 06/22/17 03:17 85 15 40 06/22/17 03:00 80 15 115/66 100 Mechanical Ventilator 40 06/22/17 02:00 79 15 109/61 100 Mechanical Ventilator 40 06/22/17 01:15 78 15 40 06/22/17 01:00 69 16 125/61 100 Mechanical Ventilator 40 06/22/17 00:08 141/69 06/22/17 00:00 78 06/22/17 00:00 69 16 117/5 100 Mechanical Ventilator 40 06/22/17 00:00 40 06/21/17 23:00 73 15 124/56 100 Mechanical Ventilator 40 06/21/17 22:30 70 15 40 06/21/17 22:00 69 16 123/62 100 Mechanical Ventilator 40 06/21/17 21:04 93 15 40 06/21/17 21:00 89 16 123/67 100 Mechanical Ventilator 40 06/21/17 21:00 89 16 123/67 100 Mechanical Ventilator 40 06/21/17 20:43 91 142/51 06/21/17 20:00 98.4 87 16 142/51 100 Mechanical Ventilator 40 06/21/17 20:00 97 06/21/17 20:00 40 06/21/17 19:05 80 15 40 06/21/17 19:00 84 16 101/52 100 Mechanical Ventilator 40 06/21/17 18:56 131/77 06/21/17 18:00 88 16 131/77 100 Mechanical Ventilator 40 06/21/17 17:06 15 18 40 06/21/17 17:00 91 15 91/52 100 Mechanical Ventilator 40 06/21/17 16:00 97 06/21/17 16:00 98.5 97 16 134/77 98 Mechanical Ventilator 40 06/21/17 16:00 40 06/21/17 15:26 98 18 40 Intake and Output 06/21/17 06/22/17 19:00 07:00 Intake Total 1347.000 ml 1465 ml Output Total 895 ml 830 ml Balance 452.000 ml 635 ml Free Water 50 ml IV Total 1137.000 ml 1255 ml Tube Feeding 40 ml 210 ml Other 120 ml Output Urine Total 895 ml 830 ml Laboratory Tests 06/22/17 05:15: White Blood Count 16.9H, Red Blood Count 2.90L, Hemoglobin 8.8L, Hematocrit 27.2L, Mean Corpuscular Volume 94, Mean Corpuscular Hemoglobin 30.2, Mean Corpuscular Hemoglobin Concent 32.2, Red Cell Distribution Width 15.9H, Platelet Count 199, Mean Platelet Volume 7.1, Neutrophils (%) (Auto) , Lymphocytes (%) (Auto) , Monocytes (%) (Auto) , Eosinophils (%) (Auto) , Basophils (%) (Auto) , Differential Total Cells Counted 100, Neutrophils % ( Manual) 96H, Lymphocytes % (Manual) 3L, Monocytes % (Manual) 1, Eosinophils % ( Manual) 0, Basophils % (Manual) 0, Band Neutrophils 0, Platelet Estimate Adequate, Platelet Morphology Normal, Hypochromasia 1+, Anisocytosis 1+, Sodium Level 148H, Potassium Level 3.1L, Chloride Level 114H, Carbon Dioxide Level 26, Anion Gap 8, Blood Urea Nitrogen 54H, Creatinine 2.2H, Estimat Glomerular Filtration Rate 30.3, Glucose Level 170#H, Calcium Level 7.1L, Phosphorus Level 3.3, Magnesium Level 2.4, Total Bilirubin 0.2, Aspartate Amino Transf (AST/SGOT ) 22, Alanine Aminotransferase (ALT/SGPT) 26, Alkaline Phosphatase 103, Troponin I 0.085H, Total Protein 5.9L, Albumin 1.6L, Globulin 4.3, Albumin/ Globulin Ratio 0.4L, Triglycerides Level 258H, Cholesterol Level 111, LDL Cholesterol 51, HDL Cholesterol 30L, Cholesterol/HDL Ratio 3.7 06/22/17 07:55: Arterial Blood pH 7.434, Arterial Blood Partial Pressure CO2 36.8, Arterial Blood Partial Pressure O2 360.2H, Arterial Blood HCO3 24.1, Arterial Blood Oxygen Saturation 99.1H, Arterial Blood Base Excess 0, Khang Test Positive 06/22/17 08:00: Urine Color Pale yellow, Urine Appearance Very cloudy, Urine pH 5, Urine Specific [place] 1.015, Urine Protein 3+H, Urine Glucose (UA) Negative, Urine Ketones Negative, Urine Occult Blood 5+H, Urine Nitrite Negative, Urine Bilirubin Negative, Urine Urobilinogen Normal, Urine Leukocyte Esterase 3+H, Urine RBC 10-15H, Urine WBC 5-10H, Urine Squamous Epithelial Cells Few, Urine Bacteria Few, Urine Yeast FewH, Urine Eosinophils None seen, Urine Random Sodium 32, Urine Potassium Timed 26 Height (Feet): 5 Height (Inches): 9.00 Weight (Pounds): 172 General Appearance: no apparent distress Cardiovascular: normal rate Respiratory/Chest: decreased breath sounds Abdomen: soft Objective no other changes GARCÍA READ Jun 22, 2017 15:15
--- NOTE | 2017-06-22 18:45 | Progress Note ---
DATE: 06/22/2017 CARDIOLOGY PROGRESS NOTE SUBJECTIVE: The patient remains in the intensive care unit, orally intubated, and mechanically ventilated. OBJECTIVE: VITAL SIGNS: Blood pressure 122/56, pulse 85, respiratory rate 17, and afebrile. NECK: Thick secretions. LUNGS: Bilateral breath sounds with rhonchi. HEART: Regular rhythm and rate. Normal S1 and S2. ABDOMEN: Soft. EXTREMITIES: Trace edema. LABORATORY AND DIAGNOSTIC DATA: Gram-negative bacillus in the sputum. Scarlet in the urine. White count 16.9 and hemoglobin 8.8. ABG, pH 7.43, 37 and 360. Sodium 148, potassium 3.1, BUN 54 and creatinine 2.2. Troponin down to 0.085. Albumin 1.6. IMPRESSION: 1. Acute myocardial infarction. 2. Acute respiratory failure with hypoxia. 3. Healthcare acquired pneumonia. 4. Hypokalemia. 5. Hyperchloremia. 6. Hypernatremia. 7. Dehydration. 8. Acute renal failure. 9. Severe protein-calorie malnutrition. 10. Anemia. 11. Leukocytosis. 12. Fungal cystitis. 13. Critical and guarded. PLAN: 1. Antiplatelet therapy. 2. Antimicrobials. 3. Hypotonic IV fluid hydration. 4. Replace potassium. 5. Recheck labs. 6. DVT prophylaxis. 7. Check lipid panel. statin therapy until metabolically stabilized. 8. Continue antihypertensives including beta-abdoulaye. Ulisses Gaston M.D. DR: HAYES JOB#: [id number] CC:
--- NOTE | 2017-06-22 23:30 | Progress Note ---
DATE: 06/22/2017 SUBJECTIVE: The patient remained intubated, however, he is not tachycardic and not tachypneic and he is hemodynamically stable. PHYSICAL EXAMINATION: VITAL SIGNS: Blood pressure 129/69, his pulse is 83, respirations 17, and temperature 97.7. HEENT: Eyes were normal. ENT, mucous membranes were moist and intact. NECK: Supple with no JVD without lymph nodes. LUNGS: Relatively clear with few scattered rhonchi in both lungs and few wheezes. Sputum production is [id number]. Sputum is haider and thick. HEART: Normal sounds with regular beats. There is no S3, S4, or pericardial rub. ABDOMEN: Soft and nontender with normal bowel sounds. Gastrostomy site is clean. EXTREMITIES: Warm without cyanosis, clubbing, or edema. LABORATORY AND DIAGNOSTIC DATA: Hemoglobin is 8.8, hematocrit 27.2 with MCV of 94, WBC of 16.9, and platelets is 199. His BUN and creatinine is 54 and 2.2 respectively. Sodium is 148, potassium 3.1, chloride 114, CO2 is 26, calcium is 7.9, and phosphorus 3.3. Magnesium is 2.4. His iron saturation is 30. His troponin is 0.085, down from 0.291. His albumin is 1.3 and total protein is 5.6. His LDL is 51. His chest x-ray showed no active disease. The patient currently is on meropenem 500 mg IV piggyback q.12 h. and vancomycin 1 g IV piggyback q.24 h. However, his leukocytosis continued moderately to improve. His sputum culture grew gram-negative bacilli , sensitivity is unavailable as yet. IMPRESSION AND PLAN: 1. The patient has respiratory failure, had to be intubated and placed on mechanical ventilation. 2. The patient has gram-negative bacilli without any infiltrate. 3. The patient had urine culture, which grew Scarlet albicans, however, they currently are only 10,000 to 20,000. Because of the patient's leukocytosis still not , it progressively increased in spite of that he was on broad-spectrum antibiotics, we will wait for the result of C. diff. At present the patient does not have diarrhea. Repeat laboratory tests will be done in the morning. Martina Morales M.D. DR: HARDY JOB#: [id number] CC:
[2017-06-23] VITALS (25 sets, daily range): BP systolic 105–147; BP diastolic 44–96
[2017-06-23] MEDS: HydrALAZINE 10mg Tab GT SCH ×5 (00:25→23:56)
[2017-06-23] MEDS: NovoLOG Insulin Flexpen SUBQ SCH ×5 (00:29→23:36)
[2017-06-23 05:30] LABS: HEMATOCRIT 24.6 % (42.0-52.0); HEMOGLOBIN 7.8 G/DL (14.2-18.0); MEAN CORPUSCULAR VOLUME 94 FL (80-99); PLATELET COUNT 173 K/UL (150-450); RED BLOOD COUNT 2.62 M/UL (4.70-6.10); RED CELL DISTRIBUTION WIDTH 15.6 % (11.6-14.8); WHITE BLOOD COUNT 11.6 K/UL (4.8-10.8)
[2017-06-23 06:03] LABS: ALANINE AMINOTRANSFERASE 22 U/L (12-78); ALBUMIN 1.4 G/DL (3.4-5.0); ALBUMIN/GLOBULIN RATIO 0.3 (1.0-2.7); ALKALINE PHOSPHATASE 120 U/L (46-116); ANION GAP 8 mmol/L (5-15); ASPARTATE AMINO TRANSFERASE 22 U/L (15-37); BILIRUBIN,TOTAL 0.2 MG/DL (0.2-1.0); BLOOD UREA NITROGEN 47 mg/dL (7-18); CALCIUM 6.7 MG/DL (8.5-10.1); CARBON DIOXIDE 24 MMOL/L (21-32); CHLORIDE 113 MMOL/L (98-107); CREATININE 1.8 MG/DL (0.55-1.30); PHOSPHORUS 2.9 MG/DL (2.5-4.9); POTASSIUM 4.2 MMOL/L (3.5-5.1); SODIUM 145 MMOL/L (136-145)
--- NOTE | 2017-06-23 08:25 | Pulmonolgy Critical Care Note ---
Critical Care - Asmt/Plan Assessment/Plan: ASSESSMENT Acute hypoxemic RF requiring intubation possible sepsis bacteremia with GPC Aspiration PNA lactic acidosis acute renal failure Dehydration e/lyte imbalance ( hypoK, hyper Na)-resolved anemia of chronic disease Dysphagia G tube fungal cystitis CVA with right sided hemiplegia Severe protein calorie malnutrition Acute toxic metabolic encephalopathy on chronic Hypothyroidism PLAN OF CARE ICU Vent support pulm toilet daily CXR and ABG and titrate settings as needed this am ABG stable on current settings Abx ID follows CXR negative, urine cx + chinedu, sputum cx +Pseudomonas, initial blood cx +CONS /GPC in clusters, repeated bl cx prelimin negative Cardio follows serial troponin trending down, last troponin negative antiplatelet therapy with ASA BB Cautious use of anti-HTN meds as per cardio recommendations BP management with BB and CCB lipid panel OK BS management with SS of insulin Nephro follows monitor renal parameters, lytes, replace lytes as needed, avoid nephrotoxic creat trending down Renal US negative transfuse 1 u PRBC, anemia w/up c/w anemia of chronic disease continue levothyroxine, check TSH DVT GI prophylaxis case discussed and evaluated by supervising physician Critical Care - Objective Last 24 Hour Vital Signs Date Time Temp Pulse Resp B/P (MAP) Pulse Ox O2 Delivery O2 Flow Rate FiO2 06/23/17 07:10 92 15 40 06/23/17 07:00 96 20 147/68 100 Mechanical Ventilator 40 06/23/17 06:30 106/49 06/23/17 06:00 99 19 119/56 100 Mechanical Ventilator 40 06/23/17 05:30 96 19 113/59 100 Mechanical Ventilator 40 06/23/17 05:26 78 22 40 06/23/17 05:00 83 19 113/59 100 Mechanical Ventilator 40 06/23/17 04:00 99.2 83 19 129/71 100 Mechanical Ventilator 40 06/23/17 04:00 81 06/23/17 04:00 40 06/23/17 03:17 85 18 40 06/23/17 03:00 86 19 137/63 98 Mechanical Ventilator 40 06/23/17 02:00 91 21 143/62 100 Mechanical Ventilator 40 06/23/17 01:24 106 23 40 06/23/17 01:00 86 19 144/67 100 Mechanical Ventilator 40 06/23/17 00:25 118/56 06/23/17 00:00 99.5 86 19 114/44 100 Mechanical Ventilator 40 06/22/17 23:03 90 20 40 06/22/17 23:00 86 19 124/44 100 Mechanical Ventilator 40 06/22/17 22:00 86 19 114/52 100 Mechanical Ventilator 40 06/22/17 21:29 82 90/59 06/22/17 21:09 84 21 40 06/22/17 21:00 84 17 100/46 100 Mechanical Ventilator 40 06/22/17 20:00 87 06/22/17 20:00 98.8 87 18 128/42 100 Mechanical Ventilator 40 06/22/17 20:00 40 06/22/17 19:15 96 20 40 06/22/17 19:00 76 17 110/46 100 Mechanical Ventilator 40 06/22/17 18:00 88 17 116/47 100 Mechanical Ventilator 40 06/22/17 17:57 127/71 06/22/17 17:00 83 17 129/69 100 Mechanical Ventilator 40 06/22/17 16:58 83 19 40 06/22/17 16:00 40 06/22/17 16:00 84 06/22/17 16:00 98.3 113 17 138/104 100 06/22/17 16:00 97.7 85 17 138/94 100 Mechanical Ventilator 40 06/22/17 15:22 82 22 40 06/22/17 15:00 82 20 136/64 100 Mechanical Ventilator 40 06/22/17 14:00 81 19 114/77 100 Mechanical Ventilator 40 06/22/17 13:00 80 21 115/67 100 Mechanical Ventilator 40 06/22/17 12:53 81 16 40 06/22/17 12:22 126/73 06/22/17 12:00 98.1 79 16 126/73 100 Mechanical Ventilator 40 06/22/17 12:00 76 06/22/17 12:00 40 06/22/17 11:00 80 17 122/71 100 Mechanical Ventilator 40 06/22/17 10:58 74 24 40 06/22/17 10:00 76 17 137/66 100 Mechanical Ventilator 40 06/22/17 09:28 72 17 40 06/22/17 09:00 79 16 124/100 100 Mechanical Ventilator 40 06/22/17 08:45 85 122/56 06/22/17 08:44 83 122/56 Status: other - lethargic, on Vent Condition: critical HEENT: atraumatic, normocephalic, other - OP with ET in palce, intact Lungs: clear Heart: HR/BP stable Abdomen: soft, non-tender, feeding tube Extremities: no C/C/E Micro: Microbiology Date/Time Source Procedure Growth Status 06/21/17 00:55 Blood Blood Culture - Preliminary NO GROWTH AFTER 24 HOURS Resulted 06/21/17 00:50 Blood Blood Culture - Preliminary NO GROWTH AFTER 24 HOURS Resulted 06/21/17 01:30 Sputum Gram Stain - Final Resulted 06/21/17 01:30 Sputum Culture - Preliminary Gram Negative Bacillus 1 Resulted 06/20/17 23:10 Sacral Rectal Gram Stain - Final Resulted 06/20/17 23:10 Wound Culture - Preliminary Gram Negative Eddie Resulted Accucheck: 296 Critical Care - Subjective ROS Limited/Unobtainable: Yes Interval Events: leukocytosis trending down, afebrile creat trending down Hgb down to 7.8 no signs of resp distress on current settings troponin this am WNL Condition: critical IV Access: peripheral EKG Rhythm: Sinus Rhythm FI02: 40 Vent Support Breath Rate: 15 Vent Support Mode: AC Vent Tidal Volume: 600 Sputum Amount: Small PEEP: 5.0 PIP: 27 Fluids: 1/2 NS at 125 Tube Feeding Amount: 60 I&O: Intake and Output 06/22/17 06/23/17 19:00 07:00 Intake Total 1720 ml 1780 ml Output Total 420 ml 600 ml Balance 1300 ml 1180 ml Free Water 70 ml 60 ml IV Total 1070 ml 1180 ml Tube Feeding 580 ml 540 ml Output Urine Total 420 ml 600 ml # Voids 40 CXR: 06/22 - Lungs and pleural spaces are clear. ET-Tube: 7.5 ET Position: 22 Alfred (KendrickKandis pop NP Jun 23, 2017 08:24
[2017-06-23] MEDS ORDERED: Albuterol/Ipratropium 3ml neb HHN PRN (08:30)
[2017-06-23] MEDS: Aspirin EC 81mg tab ORAL SCH (09:27)
[2017-06-23] MEDS: Metoprolol Tartrate 50mg tab GT SCH ×2 (09:28→20:57)
[2017-06-23] MEDS: Heparin 5000 units/ml inj SUBQ SCH ×2 (09:33→20:59)
[2017-06-23] MEDS: Meropenem 1 GM in NS 55 ML IVPB SCH (09:33)
--- NOTE | 2017-06-23 10:54 | Nephrology Progress Note ---
Assessment/Plan Problem List: (1) Acute renal failure (2) Respiratory failure requiring intubation (3) Urosepsis Assessment BOOGIE (acute kidney injury), Cr lowering H&H lower Respiratory failure requiring intubation Respiratory failure with hypoxia Aspiration pneumonia, Urosepsis Anemia ACS (acute coronary syndrome), Non St Elevation [place] CHF (congestive heart failure) Acute encephalopathy GT feeding Plan plan: ? transfuse?? Hydrate- avoid Nephrotoxics monitor renal parameters Keep BP and BS in check Optimize pulmonary and cardiac support Subjective ROS Limited/Unobtainable: Yes Objective Objective Last 24 Hour Vital Signs Date Time Temp Pulse Resp B/P (MAP) Pulse Ox O2 Delivery O2 Flow Rate FiO2 06/23/17 10:47 68 17 40 06/23/17 10:46 98.0 06/23/17 10:00 68 18 109/63 100 Mechanical Ventilator 40 06/23/17 09:39 73 22 40 06/23/17 09:28 72 127/78 06/23/17 09:27 72 127/73 06/23/17 09:00 86 17 127/78 100 Mechanical Ventilator 40 06/23/17 08:00 40 06/23/17 08:00 88 06/23/17 08:00 98.0 90 20 136/67 100 Mechanical Ventilator 40 06/23/17 07:10 92 15 40 06/23/17 07:00 96 20 147/68 100 Mechanical Ventilator 40 06/23/17 06:30 106/49 06/23/17 06:00 99 19 119/56 100 Mechanical Ventilator 40 06/23/17 05:30 96 19 113/59 100 Mechanical Ventilator 40 06/23/17 05:26 78 22 40 06/23/17 05:00 83 19 113/59 100 Mechanical Ventilator 40 06/23/17 04:00 99.2 83 19 129/71 100 Mechanical Ventilator 40 06/23/17 04:00 81 06/23/17 04:00 40 06/23/17 03:17 85 18 40 06/23/17 03:00 86 19 137/63 98 Mechanical Ventilator 40 06/23/17 02:00 91 21 143/62 100 Mechanical Ventilator 40 06/23/17 01:24 106 23 40 06/23/17 01:00 86 19 144/67 100 Mechanical Ventilator 40 06/23/17 00:25 118/56 06/23/17 00:00 99.5 86 19 114/44 100 Mechanical Ventilator 40 06/22/17 23:03 90 20 40 06/22/17 23:00 86 19 124/44 100 Mechanical Ventilator 40 06/22/17 22:00 86 19 114/52 100 Mechanical Ventilator 40 06/22/17 21:29 82 90/59 06/22/17 21:09 84 21 40 06/22/17 21:00 84 17 100/46 100 Mechanical Ventilator 40 06/22/17 20:00 87 06/22/17 20:00 98.8 87 18 128/42 100 Mechanical Ventilator 40 06/22/17 20:00 40 06/22/17 19:15 96 20 40 06/22/17 19:00 76 17 110/46 100 Mechanical Ventilator 40 06/22/17 18:00 88 17 116/47 100 Mechanical Ventilator 40 06/22/17 17:57 127/71 06/22/17 17:00 83 17 129/69 100 Mechanical Ventilator 40 06/22/17 16:58 83 19 40 06/22/17 16:00 40 06/22/17 16:00 84 06/22/17 16:00 98.3 113 17 138/104 100 06/22/17 16:00 97.7 85 17 138/94 100 Mechanical Ventilator 40 06/22/17 15:22 82 22 40 06/22/17 15:00 82 20 136/64 100 Mechanical Ventilator 40 06/22/17 14:00 81 19 114/77 100 Mechanical Ventilator 40 06/22/17 13:00 80 21 115/67 100 Mechanical Ventilator 40 06/22/17 12:53 81 16 40 06/22/17 12:22 126/73 06/22/17 12:00 98.1 79 16 126/73 100 Mechanical Ventilator 40 06/22/17 12:00 76 06/22/17 12:00 40 06/22/17 11:00 80 17 122/71 100 Mechanical Ventilator 40 06/22/17 10:58 74 24 40 Intake and Output 06/22/17 06/23/17 19:00 07:00 Intake Total 1720 ml 1905 ml Output Total 420 ml 600 ml Balance 1300 ml 1305 ml Free Water 70 ml 60 ml IV Total 1070 ml 1305 ml Tube Feeding 580 ml 540 ml Output Urine Total 420 ml 600 ml # Voids 40 Laboratory Tests 06/23/17 04:41: White Blood Count 11.6H, Red Blood Count 2.62L, Hemoglobin 7.8L, Hematocrit 24.6L, Mean Corpuscular Volume 94, Mean Corpuscular Hemoglobin 29.8, Mean Corpuscular Hemoglobin Concent 31.8L, Red Cell Distribution Width 15.6H, Platelet Count 173, Mean Platelet Volume 6.7, Neutrophils (%) (Auto) , Lymphocytes (%) (Auto) , Monocytes (%) (Auto) , Eosinophils (%) (Auto) , Basophils (%) (Auto) , Neutrophils % (Manual) [Pending], Lymphocytes % (Manual) [Pending], Platelet Estimate [Pending], Platelet Morphology [Pending], Sodium Level 145, Potassium Level 4.2, Chloride Level 113H, Carbon Dioxide Level 24, Anion Gap 8, Blood Urea Nitrogen 47H, Creatinine 1.8H, Estimat Glomerular Filtration Rate 38.2, Glucose Level 190H, Calcium Level 6.7L, Phosphorus Level 2.9, Magnesium Level 2.1, Total Bilirubin 0.2, Aspartate Amino Transf (AST/SGOT ) 22, Alanine Aminotransferase (ALT/SGPT) 22, Alkaline Phosphatase 120H, Troponin I 0.034, C-Reactive Protein, Quantitative 21.0H, Total Protein 5.5L, Albumin 1.4L, Globulin 4.1, Albumin/Globulin Ratio 0.3L, Random Vancomycin Level 20.1 06/23/17 08:40: Arterial Blood pH 7.441, Arterial Blood Partial Pressure CO2 37.2, Arterial Blood Partial Pressure O2 119.0H, Arterial Blood HCO3 24.8, Arterial Blood Oxygen Saturation 98.3H, Arterial Blood Base Excess 0.7, Khang Test Positive Height (Feet): 5 Height (Inches): 9.00 Weight (Pounds): 172 General Appearance: no apparent distress EENT: other - on vent Cardiovascular: normal rate Respiratory/Chest: decreased breath sounds Abdomen: distended Objective no other changes GARCÍA READ Jun 23, 2017 10:54
[2017-06-23] MEDS: Vancomycin 1250mg/D5W 250ml IVPB SCH (12:03)
--- NOTE | 2017-06-23 16:19 | Infectious Diseases Prog Note ---
Assessment/Plan Assessment/Plan Assessment: Sepsis 2ry to HCAP -CXR: There is infiltrate in the left infrahilar region. There is some atelectasis at the right lung base. There is also retrocardiac consolidation -sp cx: +3 MDR PSA (ID and sensi pending) -u./a WBC 5-10, nit neg, leuk est +1, ucx 10-20K C. albicans (colonzier) GPC bacteremia- CoNS ?real vs contaminant repea Bl Cx: P UCx : low count Scarlet ( Colonizer)Fever improving leukocytosis improving Lactic acidosis- resolved Recent admission at OSH for sepsis, s/p IV abx (~1 wk [employer]) Acute hypoxic resp failure s/p intubation 1/3 BOOGIE, improving Recent gastritis (dx by EGD) Hx of encephalopathy -05/22 CT head: No evidence of acute intracranial hemorrhage, mass effect or cortical edema. MRI may be obtained for more sensitive evaluation as clinically indicated. Stable chronic infarct in the right frontal lobe. Cerebral and cerebellar atrophy greater than expected for age. Clinical correlation recommended. Mild periventricular hypoattenuation suggestive of chronic ischemic microvascular changes. -previous admission:nical correlation recommended. Mild periventricular hypoattenuation suggestive of chronic ischemic microvascular changes. Small area of right frontal encephalomalacia suggestive of old infarct. -UDS neg -TSH normal -Neg: HIV ag/ab, RPR, CrAg serum, FTA-ab -Brain MRI: Chronic and age-related changes. Old right frontal infarct. Negative for acute intracranial bleed, mass effect, or acute infarct hx of VRE and MRSA colonization HTN, CKD, DM2, bipolar dz/schizophrenia, GERD, cardiac arrhythmia, Dementia, CAD with prior VA, MS, osteoporosis, asthma, VIt D def, hypothyroidism, HLD, dysphagia s/p GT, R MCA CVA with left hemiplegia, s/p trach Plan: -Continue IV Vancomycin # 3 and Amikacin d# 2, add Cefepime d# 1 , DC Meropenem # 3 -1/4 SP Amikacin x1 -f/u cx -Monitor CBC/BMP, temperatures; Trend WBC -ETT care -aspiration precautions - PRBC as needed - resp supp Subjective Allergies: Coded Allergies: No Known Allergies (Unverified , 05/11/17) Subjective on vent Objective Vital Signs Last 24 Hour Vital Signs Date Time Temp Pulse Resp B/P (MAP) Pulse Ox O2 Delivery O2 Flow Rate FiO2 06/23/17 15:56 77 18 40 06/23/17 15:00 73 17 114/51 100 Mechanical Ventilator 40 06/23/17 14:00 71 18 118/88 100 Mechanical Ventilator 40 06/23/17 13:09 77 16 40 06/23/17 13:00 71 20 105/52 100 Mechanical Ventilator 40 06/23/17 12:03 110/51 06/23/17 12:00 77 06/23/17 12:00 40 06/23/17 12:00 98.4 68 18 109/63 100 Mechanical Ventilator 40 06/23/17 11:00 72 19 127/74 100 Mechanical Ventilator 40 06/23/17 10:47 68 17 40 06/23/17 10:46 98.0 06/23/17 10:00 68 18 109/63 100 Mechanical Ventilator 40 06/23/17 09:39 73 22 40 06/23/17 09:28 72 127/78 06/23/17 09:27 72 127/73 06/23/17 09:00 86 17 127/78 100 Mechanical Ventilator 40 06/23/17 08:00 40 06/23/17 08:00 88 06/23/17 08:00 98.0 90 20 136/67 100 Mechanical Ventilator 40 06/23/17 07:10 92 15 40 06/23/17 07:00 96 20 147/68 100 Mechanical Ventilator 40 06/23/17 06:30 106/49 06/23/17 06:00 99 19 119/56 100 Mechanical Ventilator 40 06/23/17 05:30 96 19 113/59 100 Mechanical Ventilator 40 06/23/17 05:26 78 22 40 06/23/17 05:00 83 19 113/59 100 Mechanical Ventilator 40 06/23/17 04:00 99.2 83 19 129/71 100 Mechanical Ventilator 40 06/23/17 04:00 81 06/23/17 04:00 40 06/23/17 03:17 85 18 40 06/23/17 03:00 86 19 137/63 98 Mechanical Ventilator 40 06/23/17 02:00 91 21 143/62 100 Mechanical Ventilator 40 06/23/17 01:24 106 23 40 06/23/17 01:00 86 19 144/67 100 Mechanical Ventilator 40 06/23/17 00:25 118/56 06/23/17 00:00 99.5 86 19 114/44 100 Mechanical Ventilator 40 06/22/17 23:03 90 20 40 06/22/17 23:00 86 19 124/44 100 Mechanical Ventilator 40 06/22/17 22:00 86 19 114/52 100 Mechanical Ventilator 40 06/22/17 21:29 82 90/59 06/22/17 21:09 84 21 40 06/22/17 21:00 84 17 100/46 100 Mechanical Ventilator 40 06/22/17 20:00 87 06/22/17 20:00 98.8 87 18 128/42 100 Mechanical Ventilator 40 06/22/17 20:00 40 06/22/17 19:15 96 20 40 06/22/17 19:00 76 17 110/46 100 Mechanical Ventilator 40 06/22/17 18:00 88 17 116/47 100 Mechanical Ventilator 40 06/22/17 17:57 127/71 06/22/17 17:00 83 17 129/69 100 Mechanical Ventilator 40 06/22/17 16:58 83 19 40 Height (Feet): 5 Height (Inches): 9.00 Weight (Pounds): 172 HEENT: anicteric Respiratory/Chest: lungs clear Cardiovascular: regular rhythm Abdomen: soft, non tender Microbiology Date/Time Source Procedure Growth Status 06/21/17 00:55 Blood Blood Culture - Preliminary NO GROWTH AFTER 48 HOURS Resulted 06/21/17 00:50 Blood Blood Culture - Preliminary NO GROWTH AFTER 48 HOURS Resulted 06/21/17 01:30 Sputum Gram Stain - Final Resulted 06/21/17 01:30 Sputum Culture - Preliminary Pseudomonas Aeruginosa Resulted 06/20/17 23:10 Sacral Rectal Gram Stain - Final Resulted 06/20/17 23:10 Wound Culture - Preliminary Gram Negative Eddie Resulted Laboratory Tests Test 06/23/17 04:41 06/23/17 08:40 White Blood Count 11.6 K/UL (4.8-10.8) H Red Blood Count 2.62 M/UL (4.70-6.10) L Hemoglobin 7.8 G/DL (14.2-18.0) L Hematocrit 24.6 % (42.0-52.0) L Mean Corpuscular Volume 94 FL (80-99) Mean Corpuscular Hemoglobin 29.8 PG (27.0-31.0) Mean Corpuscular Hemoglobin Concent 31.8 G/DL (32.0-36.0) L Red Cell Distribution Width 15.6 % (11.6-14.8) H Platelet Count 173 K/UL (150-450) Mean Platelet Volume 6.7 FL (6.5-10.1) Neutrophils (%) (Auto) % (45.0-75.0) Lymphocytes (%) (Auto) % (20.0-45.0) Monocytes (%) (Auto) % (1.0-10.0) Eosinophils (%) (Auto) % (0.0-3.0) Basophils (%) (Auto) % (0.0-2.0) Differential Total Cells Counted 100 Neutrophils % (Manual) 89 % (45-75) H Lymphocytes % (Manual) 7 % (20-45) L Monocytes % (Manual) 4 % (1-10) Eosinophils % (Manual) 0 % (0-3) Basophils % (Manual) 0 % (0-2) Band Neutrophils 0 % (0-8) Platelet Estimate Adequate Platelet Morphology Normal Hypochromasia 3+ Anisocytosis 1+ Sodium Level 145 MMOL/L (136-145) Potassium Level 4.2 MMOL/L (3.5-5.1) Chloride Level 113 MMOL/L (98-107) H Carbon Dioxide Level 24 MMOL/L (21-32) Anion Gap 8 mmol/L (5-15) Blood Urea Nitrogen 47 mg/dL (7-18) H Creatinine 1.8 MG/DL (0.55-1.30) H Estimat Glomerular Filtration Rate 38.2 mL/min (>60) Glucose Level 190 MG/DL (74-106) H Calcium Level 6.7 MG/DL (8.5-10.1) L Phosphorus Level 2.9 MG/DL (2.5-4.9) Magnesium Level 2.1 MG/DL (1.8-2.4) Total Bilirubin 0.2 MG/DL (0.2-1.0) Aspartate Amino Transf (AST/SGOT) 22 U/L (15-37) Alanine Aminotransferase (ALT/SGPT) 22 U/L (12-78) Alkaline Phosphatase 120 U/L (46-116) H Troponin I 0.034 ng/mL (0.000-0.056) C-Reactive Protein, Quantitative 21.0 mg/dL (0.00-0.90) H Total Protein 5.5 G/DL (6.4-8.2) L Albumin 1.4 G/DL (3.4-5.0) L Globulin 4.1 g/dL Albumin/Globulin Ratio 0.3 (1.0-2.7) L Random Vancomycin Level 20.1 ug/mL Arterial Blood pH 7.441 (7.350-7.450) Arterial Blood Partial Pressure CO2 37.2 mmHg (35.0-45.0) Arterial Blood Partial Pressure O2 119.0 mmHg (75.0-100.0) H Arterial Blood HCO3 24.8 mmol/L (22.0-26.0) Arterial Blood Oxygen Saturation 98.3 % (92.0-98.0) H Arterial Blood Base Excess 0.7 Khang Test Positive Current Medications Medications (Trade) Dose Ordered Sig/Willem Route PRN Reason Start Time Stop Time Status Last Admin Dose Admin Acetaminophen (Tylenol) 650 mg DAILY PRN ORAL Temp > 100.5 06/21/17 01:15 07/21/17 01:14 Acetaminophen (Tylenol) 650 mg Q6H PRN ORAL MILD PAIN (1-4). NTE 3GM/DAY 06/21/17 01:15 07/21/17 01:14 Acetaminophen (Tylenol) 1,000 mg Q6H PRN ORAL MODERATE PAIN (5-7) 06/21/17 01:15 07/21/17 01:14 06/23/17 09:27 Albuterol/ Ipratropium (Albuterol/ Ipratropium) 3 ml Q4HRT PRN HHN sob 06/23/17 08:30 06/28/17 08:29 Amlodipine Besylate (Norvasc) 10 mg DAILY GT 06/22/17 09:00 07/21/17 08:59 06/23/17 09:27 Aspirin (Ecotrin) 81 mg DAILY ORAL 06/21/17 09:00 07/21/17 08:59 06/23/17 09:27 Bisacodyl (Dulcolax) 10 mg DAILY PRN RECTAL constipationIF MOM INEFFECTIVE 06/21/17 01:15 07/21/17 01:14 Clonidine HCl (Catapres) 0.1 mg Q4H PRN GT bp of 160 syst and above 06/21/17 17:00 07/21/17 16:59 Dextrose (Dextrose 50%) STAT PRN IV Hypoglycemia 06/21/17 06:45 07/21/17 06:44 Famotidine (Pepcid) 20 mg DAILY ORAL 06/22/17 09:00 07/22/17 08:59 06/23/17 09:27 Heparin Sodium (Porcine) (Heparin 5000 units/ml) 5,000 units EVERY 12 HOURS SUBQ 06/21/17 09:00 07/21/17 08:59 06/23/17 09:33 Hydralazine HCl (Apresoline) 10 mg Q6HR GT 06/21/17 18:00 07/21/17 17:59 06/23/17 12:03 Insulin Aspart (NovoLOG) EVERY 6 HOURS SUBQ 06/21/17 12:00 07/21/17 06:29 06/23/17 12:05 Levothyroxine Sodium (Synthroid) 50 mcg ACBREAKFAST GT 06/21/17 06:30 07/21/17 06:29 06/23/17 06:31 Lorazepam (Ativan 2mg/ml 1ml) 2 mg Q3H PRN IV For Anxiety 06/21/17 15:45 06/28/17 15:44 06/21/17 15:44 Meropenem 1 gm/ Sodium Chloride 55 ml @ 110 mls/hr Q12H IVPB 06/21/17 22:00 06/26/17 21:59 06/23/17 09:33 Metoprolol Tartrate (Lopressor) 50 mg EVERY 12 HOURS GT 06/21/17 09:00 07/21/17 08:59 06/23/17 09:28 Nitroglycerin (Ntg) 0.4 mg Q5M PRN SL CHEST PAIN 06/21/17 01:15 07/21/17 01:14 Sodium Chloride 1,000 ml @ 125 mls/hr Q8H IV 06/22/17 12:30 07/22/17 12:29 06/23/17 12:05 Temazepam (Restoril) 15 mg BEDTIME PRN ORAL Insomnia 06/21/17 01:15 06/28/17 01:14 Vancomycin HCl (Vanco rx to dose) 1 ea DAILY PRN MISC Per rx protocol 06/21/17 11:15 07/21/17 11:14 Vancomycin HCl/ Dextrose 250 ml @ 166.667 mls/hr Q24H IVPB 06/23/17 12:00 06/28/17 11:59 06/23/17 12:03 REJI HOANG M.D. Jun 23, 2017 16:19
[2017-06-23] MEDS ORDERED: Amikacin Rx to dose MISC PRN (16:30)
[2017-06-23] MEDS: Cefepime HCl 2 GM in D5W 55 ML IVPB SCH (18:01)
[2017-06-23] MEDS: LORazepam Inj 2mg/ml 1ml IV PRN (18:08)
[2017-06-23] MEDS: Amikacin 500 MG in NS 110 ML IV SCH (20:01)
[2017-06-23] MEDS ORDERED: Tubing IV Secondary IV ONE (22:42)
[2017-06-23] MEDS ORDERED: NS 275ml ONE (22:42)
[2017-06-23] MEDS ORDERED: 1/2 NS 1000ml IV ONE (22:42)
[2017-06-24] VITALS (24 sets, daily range): BP systolic 112–152; BP diastolic 43–69
--- NOTE | 2017-06-24 01:00 | Progress Note ---
DATE: 06/23/2017 CARDIOLOGY PROGRESS NOTE SUBJECTIVE: The patient remains on ventilator support. Blood pressure parameters are marginal, but stable off pressors. OBJECTIVE: VITAL SIGNS: Blood pressure 109/63, pulse 68, respirations 18. Monitored rhythm sinus with rare atrial ectopy. LUNGS: Coarse breath sounds. Scattered rhonchi. HEART: Regular rhythm and rate. Normal S1, S2. ABDOMEN: Soft. EXTREMITIES: Trace edema. LABORATORY DATA: White count 11.6, hemoglobin 7.8. ABG, pH 7.44, pCO2 37, pO2 119. Sodium 145, potassium 4.2. Troponin down to 0.034. BUN 47, creatinine 1.8. Albumin 1.4. Magnesium 2.1. IMPRESSION: 1. Sepsis with shock, recovered. 2. Respiratory failure. 3. Acute myocardial infarction. 4. Severe protein-calorie malnutrition. 5. Acute on chronic renal failure. 6. Anemia due to chronic kidney disease and chronic disease. PLAN: 1. Ventilator support. 2. Antimicrobials. 3. Weaning efforts. 4. Packed red blood cell transfusion. 5. Continue anti-platelet therapy. 6. Beta blockade. 7. Titrate antihypertensives with hold parameters for low range blood pressure. 8. Condition remains critical. Prognosis guarded. Ulisses Gaston M.D. DR: KRISHAN JOB#: [id number] CC:
[2017-06-24 04:57] LABS: HEMATOCRIT 24.7 % (42.0-52.0); HEMOGLOBIN 7.9 G/DL (14.2-18.0); MEAN CORPUSCULAR VOLUME 94 FL (80-99); PLATELET COUNT 180 K/UL (150-450); RED BLOOD COUNT 2.61 M/UL (4.70-6.10); RED CELL DISTRIBUTION WIDTH 15.5 % (11.6-14.8); WHITE BLOOD COUNT 8.7 K/UL (4.8-10.8)
[2017-06-24 05:32] LABS: ANION GAP 6 mmol/L (5-15); BLOOD UREA NITROGEN 41 mg/dL (7-18); CALCIUM 6.7 MG/DL (8.5-10.1); CARBON DIOXIDE 27 MMOL/L (21-32); CHLORIDE 111 MMOL/L (98-107); CREATININE 1.5 MG/DL (0.55-1.30); POTASSIUM 4.4 MMOL/L (3.5-5.1); SODIUM 144 MMOL/L (136-145)
[2017-06-24] MEDS: NovoLOG Insulin Flexpen SUBQ SCH ×3 (05:46→18:23)
[2017-06-24] MEDS: HydrALAZINE 10mg Tab GT SCH ×3 (05:55→18:20)
[2017-06-24] MEDS: Cefepime HCl 2 GM in D5W 55 ML IVPB SCH ×2 (05:56→18:21)
[2017-06-24] MEDS: Heparin 5000 units/ml inj SUBQ SCH ×2 (08:56→20:53)
[2017-06-24] MEDS: Aspirin EC 81mg tab ORAL SCH (08:56)
[2017-06-24] MEDS: Metoprolol Tartrate 50mg tab GT SCH ×2 (09:06→20:51)
--- NOTE | 2017-06-24 10:03 | Nephrology Progress Note ---
Assessment/Plan Problem List: (1) Acute renal failure (2) Respiratory failure requiring intubation (3) Urosepsis Assessment BOOGIE (acute kidney injury), Cr lowering H&H lower Respiratory failure requiring intubation Respiratory failure with hypoxia Aspiration pneumonia, Urosepsis Anemia ACS (acute coronary syndrome), Non St Elevation WA CHF (congestive heart failure) Acute encephalopathy GT feeding Plan plan: ? transfuse?? Hydrate- avoid Nephrotoxics monitor renal parameters Keep BP and BS in check Optimize pulmonary and cardiac support Subjective ROS Limited/Unobtainable: Yes Objective Objective Last 24 Hour Vital Signs Date Time Temp Pulse Resp B/P (MAP) Pulse Ox O2 Delivery O2 Flow Rate FiO2 06/24/17 09:06 85 145/62 06/24/17 09:06 86 145/62 06/24/17 09:00 83 18 30 06/24/17 09:00 99 06/24/17 09:00 30 06/24/17 09:00 89 18 145/62 100 Mechanical Ventilator 30 06/24/17 08:27 88 06/24/17 08:00 30 06/24/17 08:00 98.7 83 19 134/65 100 Mechanical Ventilator 30 06/24/17 07:17 91 21 30 06/24/17 07:00 86 23 139/69 99 Mechanical Ventilator 30 06/24/17 06:00 86 21 135/62 99 Mechanical Ventilator 30 06/24/17 05:55 137/63 06/24/17 05:00 85 22 137/63 100 Mechanical Ventilator 30 06/24/17 04:43 88 20 30 06/24/17 04:00 99.8 83 21 137/57 100 Mechanical Ventilator 30 06/24/17 04:00 83 06/24/17 04:00 30 06/24/17 03:00 84 20 127/56 99 Mechanical Ventilator 30 06/24/17 02:55 80 21 30 06/24/17 02:00 87 19 152/66 100 Mechanical Ventilator 30 06/24/17 01:00 79 22 130/59 100 Mechanical Ventilator 30 06/24/17 00:25 78 21 30 06/24/17 00:00 77 06/24/17 00:00 99.9 75 21 129/48 100 Mechanical Ventilator 30 06/24/17 00:00 30 06/23/17 23:56 127/51 06/23/17 23:00 75 19 127/51 100 Mechanical Ventilator 35 06/23/17 22:59 75 18 30 06/23/17 22:00 74 16 127/51 100 Mechanical Ventilator 40 06/23/17 21:10 78 21 35 06/23/17 21:00 73 15 131/54 100 Mechanical Ventilator 40 06/23/17 20:57 78 133/56 06/23/17 20:00 75 06/23/17 20:00 99.2 76 17 133/56 100 Mechanical Ventilator 40 06/23/17 20:00 40 06/23/17 19:00 75 19 130/52 100 Mechanical Ventilator 40 06/23/17 18:43 74 22 40 06/23/17 18:01 133/96 06/23/17 18:00 82 20 142/63 100 Mechanical Ventilator 40 06/23/17 17:34 82 27 40 06/23/17 17:00 80 22 133/96 100 Mechanical Ventilator 40 06/23/17 16:00 40 06/23/17 16:00 71 06/23/17 16:00 98.7 72 16 135/56 100 Mechanical Ventilator 40 06/23/17 15:56 77 18 40 06/23/17 15:00 73 17 114/51 100 Mechanical Ventilator 40 06/23/17 14:00 71 18 118/88 100 Mechanical Ventilator 40 06/23/17 13:09 77 16 40 06/23/17 13:00 71 20 105/52 100 Mechanical Ventilator 40 06/23/17 12:03 110/51 06/23/17 12:00 77 06/23/17 12:00 40 06/23/17 12:00 98.4 68 18 109/63 100 Mechanical Ventilator 40 06/23/17 11:00 72 19 127/74 100 Mechanical Ventilator 40 06/23/17 10:47 68 17 40 06/23/17 10:46 98.0 Intake and Output 06/23/17 06/24/17 19:00 07:00 Intake Total 2520 ml 2311 ml Output Total 530 ml 1155 ml Balance 1990 ml 1156 ml IV Total 1680 ml 1541 ml Tube Feeding 720 ml 600 ml Other 120 ml 170 ml Output Urine Total 530 ml 1155 ml # Bowel Movements 1 Laboratory Tests 06/24/17 03:51: White Blood Count 8.7, Red Blood Count 2.61L, Hemoglobin 7.9L, Hematocrit 24.7L , Mean Corpuscular Volume 94, Mean Corpuscular Hemoglobin 30.3, Mean Corpuscular Hemoglobin Concent 32.0, Red Cell Distribution Width 15.5H, Platelet Count 180, Mean Platelet Volume 6.7, Neutrophils (%) (Auto) , Lymphocytes (%) (Auto) , Monocytes (%) (Auto) , Eosinophils (%) (Auto) , Basophils (%) (Auto) , Differential Total Cells Counted 100, Neutrophils % ( Manual) 89H, Lymphocytes % (Manual) 8L, Monocytes % (Manual) 2, Eosinophils % ( Manual) 1, Basophils % (Manual) 0, Band Neutrophils 0, Platelet Estimate Adequate, Platelet Morphology Normal, Sodium Level 144, Potassium Level 4.4, Chloride Level 111H, Carbon Dioxide Level 27, Anion Gap 6, Blood Urea Nitrogen 41H, Creatinine 1.5H, Estimat Glomerular Filtration Rate 47.1, Glucose Level 156H, Calcium Level 6.7L, Magnesium Level 2.0, Thyroid Stimulating Hormone (TSH ) 2.151 06/24/17 07:23: Arterial Blood pH 7.440, Arterial Blood Partial Pressure CO2 37.9, Arterial Blood Partial Pressure O2 71.5L, Arterial Blood HCO3 25.4, Arterial Blood Oxygen Saturation 95.1, Arterial Blood Base Excess 1.3, Khang Test Positive Height (Feet): 5 Height (Inches): 9.00 Weight (Pounds): 188 General Appearance: no apparent distress EENT: other - on vent Cardiovascular: normal rate Respiratory/Chest: decreased breath sounds Abdomen: distended Objective no other changes GARCÍA READ Jun 24, 2017 10:03
--- NOTE | 2017-06-24 11:57 | Pulmonolgy Critical Care Note ---
Critical Care - Asmt/Plan Assessment/Plan: ASSESSMENT Acute hypoxemic RF requiring intubation possible sepsis bacteremia with SCON ( real vs contaminant) Aspiration PNA lactic acidosis acute renal failure Dehydration e/lyte imbalance ( hypoK, hyper Na)-resolved anemia of chronic disease Dysphagia G tube fungal cystitis CVA with right sided hemiplegia Severe protein calorie malnutrition Acute toxic metabolic encephalopathy on chronic Hypothyroidism PLAN OF CARE ICU Vent support pulm toilet daily CXR and ABG and titrate settings as needed this am ABG stable on current settings start weaning protocol in am Abx ID follows CXR negative, urine cx + chinedu, sputum cx +Pseudomonas, initial blood cx +CONS /GPC in clusters, repeated bl cx prelimin negative Cardio follows serial troponin trending down, last troponin negative antiplatelet therapy with ASA BB Cautious use of anti-HTN meds as per cardio recommendations BP management with BB and CCB lipid panel OK BS management with SS of insulin Nephro follows monitor renal parameters, lytes, replace lytes as needed, avoid nephrotoxic creat trending down Renal US negative transfusion was held by attending on , still reamins anemic anemia w/up c/w anemia of chronic disease continue levothyroxine, TSH WNL DVT GI prophylaxis case discussed and evaluated by supervising physician Critical Care - Objective Last 24 Hour Vital Signs Date Time Temp Pulse Resp B/P (MAP) Pulse Ox O2 Delivery O2 Flow Rate FiO2 06/24/17 10:54 70 23 30 06/24/17 10:00 75 21 135/61 100 Mechanical Ventilator 30 06/24/17 09:06 85 145/62 06/24/17 09:06 86 145/62 06/24/17 09:00 83 18 30 06/24/17 09:00 99 06/24/17 09:00 30 06/24/17 09:00 89 18 145/62 100 Mechanical Ventilator 30 06/24/17 08:27 88 06/24/17 08:00 30 06/24/17 08:00 98.7 83 19 134/65 100 Mechanical Ventilator 30 06/24/17 07:17 91 21 30 06/24/17 07:00 86 23 139/69 99 Mechanical Ventilator 30 06/24/17 06:00 86 21 135/62 99 Mechanical Ventilator 30 06/24/17 05:55 137/63 06/24/17 05:00 85 22 137/63 100 Mechanical Ventilator 30 06/24/17 04:43 88 20 30 06/24/17 04:00 99.8 83 21 137/57 100 Mechanical Ventilator 30 06/24/17 04:00 83 06/24/17 04:00 30 06/24/17 03:00 84 20 127/56 99 Mechanical Ventilator 30 06/24/17 02:55 80 21 30 06/24/17 02:00 87 19 152/66 100 Mechanical Ventilator 30 06/24/17 01:00 79 22 130/59 100 Mechanical Ventilator 30 06/24/17 00:25 78 21 30 06/24/17 00:00 77 06/24/17 00:00 99.9 75 21 129/48 100 Mechanical Ventilator 30 06/24/17 00:00 30 06/23/17 23:56 127/51 06/23/17 23:00 75 19 127/51 100 Mechanical Ventilator 35 06/23/17 22:59 75 18 30 06/23/17 22:00 74 16 127/51 100 Mechanical Ventilator 40 06/23/17 21:10 78 21 35 06/23/17 21:00 73 15 131/54 100 Mechanical Ventilator 40 06/23/17 20:57 78 133/56 06/23/17 20:00 75 06/23/17 20:00 99.2 76 17 133/56 100 Mechanical Ventilator 40 06/23/17 20:00 40 06/23/17 19:00 75 19 130/52 100 Mechanical Ventilator 40 06/23/17 18:43 74 22 40 06/23/17 18:01 133/96 06/23/17 18:00 82 20 142/63 100 Mechanical Ventilator 40 06/23/17 17:34 82 27 40 06/23/17 17:00 80 22 133/96 100 Mechanical Ventilator 40 06/23/17 16:00 40 06/23/17 16:00 71 06/23/17 16:00 98.7 72 16 135/56 100 Mechanical Ventilator 40 06/23/17 15:56 77 18 40 06/23/17 15:00 73 17 114/51 100 Mechanical Ventilator 40 06/23/17 14:00 71 18 118/88 100 Mechanical Ventilator 40 06/23/17 13:09 77 16 40 06/23/17 13:00 71 20 105/52 100 Mechanical Ventilator 40 06/23/17 12:03 110/51 06/23/17 12:00 77 06/23/17 12:00 40 06/23/17 12:00 98.4 68 18 109/63 100 Mechanical Ventilator 40 Status: other - lethargic, bedridden on vent, intuabted Condition: critical HEENT: atraumatic, normocephalic, other - OP with ET in palce, intact Lungs: clear Heart: HR/BP stable Abdomen: soft, non-tender, feeding tube Extremities: no C/C/E Micro: Microbiology Date/Time Source Procedure Growth Status 06/22/17 08:00 Urine,Clean Catch Urine Culture - Preliminary Yeast Species Resulted Accucheck: 226 Critical Care - Subjective ROS Limited/Unobtainable: Yes Interval Events: leukocytosis resolved afebrile ABG stable on current settings anemic , creat trending down Condition: critical IV Access: peripheral FI02: 30 Vent Support Breath Rate: 6 Vent Support Mode: IMV/SIMV Vent Tidal Volume: 600 Sputum Amount: Small PEEP: 5.0 PIP: 32 Fluids: 1/2 NS at 125 Tube Feeding Amount: 60 I&O: Intake and Output 06/23/17 06/24/17 19:00 07:00 Intake Total 2520 ml 2311 ml Output Total 530 ml 1155 ml Balance 1990 ml 1156 ml IV Total 1680 ml 1541 ml Tube Feeding 720 ml 600 ml Other 120 ml 170 ml Output Urine Total 530 ml 1155 ml # Bowel Movements 1 ET-Tube: 7.5 ET Position: 25 Alfred (KendrickKandis pop NP Jun 24, 2017 11:57
[2017-06-24] MEDS: Vancomycin 1250mg/D5W 250ml IVPB SCH (12:01)
[2017-06-24] MEDS: Amikacin 500 MG in NS 110 ML IV SCH (19:59)
[2017-06-25] VITALS (24 sets, daily range): BP systolic 97–159; BP diastolic 46–58
[2017-06-25] MEDS: HydrALAZINE 10mg Tab GT SCH ×4 (00:17→18:19)
[2017-06-25] MEDS: NovoLOG Insulin Flexpen SUBQ SCH ×4 (00:18→18:02)
--- NOTE | 2017-06-25 05:06 | Progress Note ---
DATE: 06/24/2017 SUBJECTIVE: The patient is awake, unable to respond to verbal and tactile stimuli and no verbal response. OBJECTIVE: VITAL SIGNS: Blood pressure 132/60, pulse is 87, respiration rate 19, and temperature 98.9. HEENT: Eyes were normal. ENT, mucous membranes were moist and intact. NECK: Supple with no JVD. LUNGS: Clear without rhonchi, rales, or wheezing. HEART: Normal sounds with regular beats. No S3, S4, or pericardial rub. ABDOMEN: Soft and nontender with normal bowel sounds. Gastrostomy site is clean. EXTREMITIES: Warm without cyanosis, clubbing, or edema. LABORATORY AND DIAGNOSTIC DATA: Hemoglobin is 7.9, hematocrit 24.3 with MCV of 94, WBC 8.7, and platelets 180,000. His BUN and creatinine is 41 and 1.5 respectively. It was 47 and 1.8 yesterday. His sodium is 144, potassium 4.4, chloride 111, and CO2 is 27. His calcium is 6.7. His magnesium is 2. Sputum culture grew Pseudomonas aeruginosa; however, the chest x-ray is clean. Urine culture grew yeast. There is no fever or tachycardia. smear grew E. coli and Pseudomonas aeruginosa. Blood culture grew Staph aureus coagulase-negative from two different blood . IMPRESSION: The patient's condition continued to improve. He started to be weaned today. He tolerates weaning well. Repeat laboratory tests will be done in the morning. Martina Morales M.D. DR: Garrett JOB#: [id number] CC:
[2017-06-25] MEDS: Cefepime HCl 2 GM in D5W 55 ML IVPB SCH ×2 (05:47→17:58)
[2017-06-25 06:39] LABS: HEMATOCRIT 22.1 % (42.0-52.0); MEAN CORPUSCULAR VOLUME 93 FL (80-99); PLATELET COUNT 159 K/UL (150-450); RED BLOOD COUNT 2.36 M/UL (4.70-6.10); RED CELL DISTRIBUTION WIDTH 15.2 % (11.6-14.8); WHITE BLOOD COUNT 5.5 K/UL (4.8-10.8)
[2017-06-25 06:58] LABS: ALANINE AMINOTRANSFERASE 19 U/L (12-78); ALBUMIN 1.2 G/DL (3.4-5.0); ALBUMIN/GLOBULIN RATIO 0.3 (1.0-2.7); ALKALINE PHOSPHATASE 90 U/L (46-116); ANION GAP 7 mmol/L (5-15); ASPARTATE AMINO TRANSFERASE 24 U/L (15-37); BILIRUBIN,TOTAL 0.2 MG/DL (0.2-1.0); BLOOD UREA NITROGEN 34 mg/dL (7-18); CALCIUM 6.7 MG/DL (8.5-10.1); CARBON DIOXIDE 26 MMOL/L (21-32); CHLORIDE 108 MMOL/L (98-107); CREATINE KINASE 37 U/L (26-308); CREATININE 1.4 MG/DL (0.55-1.30); GAMMA GLUTAMYL TRANSPEPTIDASE 36 U/L (5-85); PHOSPHORUS 2.4 MG/DL (2.5-4.9); POTASSIUM 3.8 MMOL/L (3.5-5.1); SODIUM 140 MMOL/L (136-145)
--- NOTE | 2017-06-25 08:30 | Progress Note ---
DATE: 06/23/2017 SUBJECTIVE: The patient is awake, alert, afebrile, and hemodynamically stable. OBJECTIVE: VITAL SIGNS: Blood pressure 142/63, pulse is 82, respirations of 20, and temperature 98.7. HEENT: Eyes were normal. ENT, mucous membranes were moist and intact. NECK: Supple with no JVD without lymph nodes. LUNGS: Clear. HEART: Normal sounds with regular beats. There is no S3, S4, or pericardial rub. There is no tachycardia at rest. ABDOMEN: Soft and nontender with normal bowel sounds. Gastrostomy site is clean. EXTREMITIES: Warm without cyanosis, clubbing, or edema. LABORATORY AND DIAGNOSTIC DATA: Hemoglobin is 7.8, hematocrit 24.8 with MCV of 94, WBC of 11.6, and platelets 173. His BUN and creatinine is 47 and 1.8 respectively. His sodium 145, potassium 4.2, chloride 113, CO2 is 24. His calcium is 6.7. His phosphorus is 2.9. His magnesium is 2.1. His troponin continued to decline to 0.034. His CRP is 21. His albumin is 1.4 and total protein is 5.5. The patient has a sputum culture positive for Pseudomonas aeruginosa. However, the chest x-ray is clean. His urine grew Scarlet albicans. However, his blood culture results from 06/20/2017 now shows gram-positive cocci and staphylococcus coagulase-negative. IMPRESSION: The patient is on amikacin 500 mg IV piggyback q.24 h., cefepime 1 mg IV piggyback q.12 h., and vancomycin 1 g IV piggyback q.24 h. Meropenem has been discontinued. His ABG; pH is 7.44, pCO2 is 36, pO2 is 121, and O2 saturation is 96. The patient is ready to be weaned 03:34 transfusion due tomorrow. Hemoglobin and hematocrit further declined will be improved. Repeat laboratory tests will be done in the morning. Martina Morales M.D. DR: DEONNA JOB#: [id number] CC:
[2017-06-25] MEDS: Aspirin EC 81mg tab ORAL SCH (09:00)
[2017-06-25] MEDS: Heparin 5000 units/ml inj SUBQ SCH ×2 (09:00→21:06)
--- NOTE | 2017-06-25 09:15 | Consultation ---
DATE OF CONSULTATION: 06/24/2017 NOTE: POOR AUDIO HEMATOLOGY/ONCOLOGY CONSULTATION CONSULTING PHYSICIAN: Dejan Copeland M.D. REQUESTING PHYSICIAN: Martina Morales M.D. REASON FOR CONSULTATION: Evaluation of progressive anemia. IDENTIFICATION DATA: Dear Dr. Morales, The patient is a pleasant 62-year-old man, who I have seen before multiple times with history of CVA, history of weakness, vitamin D deficiency, cholelithiasis, osteoporosis, multiple sclerosis, and encephalopathy, at this time presents to the [facility] with changes in mentation with hypoxia. [facility] In the ER, he required intubation, noted to be anemic. Hematology Service consulted. saw the patient approximately two weeks ago for IV antibiotics. The patient had history of occult positive blood, underwent EGD, which showed gastritis. PAST MEDICAL HISTORY: As noted above, diabetes mellitus, . MEDICATIONS: Reviewed. ALLERGIES: No known drug allergies. SOCIAL HISTORY: No alcohol, tobacco, or illicit drug use. Difficult to obtain. FAMILY HISTORY: Noncontributory. Difficult to obtain. REVIEW OF SYSTEMS: Difficult to obtain. PHYSICAL EXAMINATION: GENERAL: No acute distress. VITAL SIGNS: Reviewed. PULMONARY: Decreased breath sounds. CARDIOVASCULAR: Regular rate. No S3 or S4. ABDOMEN: Soft, nontender, and nondistended. EXTREMITIES: A 1+ edema. LABORATORY DATA: BUN of 11 and creatinine 1.5. INR 1.2. WBC 8.5, hemoglobin , and platelet count 180,000. Toxicology reviewed. pending. ASSESSMENT AND PLAN: 1. Anemia secondary to chronic disease. I worked up the patient about a week ago prior to admission in the patient with anemia of chronic disease. 2. Coagulopathy, malnutrition and vitamin K deficiency. 3. Leukocytosis, likely secondary to underlying infection, sepsis, and antibiotics. 4. Acute hypoxemia, requiring intubation. 5. Lactic acidosis. 6. Acute kidney injury. 7. Dysphagia with gastrostomy tube. 8. Cerebrovascular accident with right-sided hemiplegia. 9. Acute toxic metabolic encephalopathy. 10. Hypothyroidism. I appreciate consultation with Dr. Morales. Dejan Copeland M.D. DR: KATIE JOB#: [id number] CC:
[2017-06-25] MEDS: Metoprolol Tartrate 50mg tab GT SCH ×2 (09:49→21:05)
--- NOTE | 2017-06-25 09:54 | Infectious Diseases Prog Note ---
Assessment/Plan Assessment/Plan Sepsis 2ry to HCAP, improving -CXR 06/22: Lungs and pleural spaces are clear -CXR: There is infiltrate in the left infrahilar region. There is some atelectasis at the right lung base. There is also retrocardiac consolidation -sp cx: +3 MDR PSA (S. Cefepime, Gentamicin/Amikacin) -u./a WBC 5-10, nit neg, leuk est +1, ucx 10-20K C. albicans (colonzier) -rectal wound cx: ESBL E.coli, PsA (colonizers)- no signs of infection / CoNS bacteremia- suspect contaminant / +2/, 1 NTD x4 Fever-resolved leukocytosis-resolved Lactic acidosis- resolved Recent admission at OSH for sepsis, s/p IV abx (~1 wk [employer]) Acute hypoxic resp failure s/p intubation / BOOGIE, improving Recent gastritis (dx by EGD) Hx of encephalopathy -05/22 CT head: No evidence of acute intracranial hemorrhage, mass effect or cortical edema. MRI may be obtained for more sensitive evaluation as clinically indicated. Stable chronic infarct in the right frontal lobe. Cerebral and cerebellar atrophy greater than expected for age. Clinical correlation recommended. Mild periventricular hypoattenuation suggestive of chronic ischemic microvascular changes. -previous admission:nical correlation recommended. Mild periventricular hypoattenuation suggestive of chronic ischemic microvascular changes. Small area of right frontal encephalomalacia suggestive of old infarct. -UDS neg -TSH normal -Neg: HIV ag/ab, RPR, CrAg serum, FTA-ab -Brain MRI: Chronic and age-related changes. Old right frontal infarct. Negative for acute intracranial bleed, mass effect, or acute infarct hx of VRE and MRSA colonization HTN, CKD, DM2, bipolar dz/schizophrenia, GERD, cardiac arrhythmia, Dementia, CAD with prior [place], MS, osteoporosis, asthma, VIt D def, hypothyroidism, HLD, dysphagia s/p GT, R MCA CVA with left hemiplegia, s/p trach Plan: -d/c IV Vancomycin # 5 and Amikacin d# 5, and continue Cefepime d# 3/10 -1/6 SP Meropenem #3 -1/4 SP Amikacin x1 -f/u cx -Monitor CBC/BMP, temperatures; Trend WBC -ETT care -aspiration precautions - PRBC as needed - resp supp Subjective Allergies: Coded Allergies: No Known Allergies (Unverified , 05/11/17) Subjective afebrile leukocytosis resolved remains vent, fio2 30% Objective Vital Signs Last 24 Hour Vital Signs Date Time Temp Pulse Resp B/P (MAP) Pulse Ox O2 Delivery O2 Flow Rate FiO2 06/25/17 08:49 90 16 30 06/25/17 08:48 100 06/25/17 07:29 87 19 30 06/25/17 06:00 80 06/25/17 06:00 88 15 117/50 97 Mechanical Ventilator 30 06/25/17 05:47 123/57 06/25/17 05:21 35 15 30 06/25/17 05:00 87 15 123/57 97 Mechanical Ventilator 30 06/25/17 04:00 99.2 83 15 120/50 97 Mechanical Ventilator 30 06/25/17 04:00 83 06/25/17 04:00 30 06/25/17 03:13 82 15 30 06/25/17 03:00 84 15 121/52 97 Mechanical Ventilator 30 06/25/17 02:00 82 15 135/54 98 Mechanical Ventilator 30 06/25/17 01:47 85 15 30 06/25/17 01:00 80 16 120/55 98 Mechanical Ventilator 30 06/25/17 00:17 122/43 06/25/17 00:00 80 06/25/17 00:00 99.0 80 16 97/47 97 Mechanical Ventilator 30 06/24/17 23:51 83 15 30 06/24/17 23:00 83 16 124/43 99 Mechanical Ventilator 30 06/24/17 22:00 82 15 112/56 99 Mechanical Ventilator 30 06/24/17 21:00 72 15 112/56 99 Mechanical Ventilator 30 06/24/17 20:51 89 133/53 06/24/17 20:49 30 06/24/17 20:45 30 06/24/17 20:41 88 23 30 06/24/17 20:00 30 06/24/17 20:00 88 06/24/17 20:00 99.6 88 23 126/54 99 Mechanical Ventilator 30 06/24/17 19:00 87 19 132/60 99 Mechanical Ventilator 30 06/24/17 18:20 139/59 06/24/17 18:00 85 22 139/59 99 Mechanical Ventilator 30 06/24/17 17:00 79 22 142/56 100 Mechanical Ventilator 30 06/24/17 16:50 89 23 30 06/24/17 16:00 30 06/24/17 16:00 90 06/24/17 16:00 98.9 86 22 141/65 98 Mechanical Ventilator 30 06/24/17 15:00 86 22 132/56 99 Mechanical Ventilator 30 06/24/17 14:45 87 25 30 06/24/17 14:00 85 22 135/55 99 Mechanical Ventilator 30 06/24/17 13:00 81 21 140/62 99 Mechanical Ventilator 30 06/24/17 12:58 84 22 30 06/24/17 12:01 132/55 06/24/17 12:00 77 06/24/17 12:00 30 06/24/17 12:00 98.7 87 24 139/63 98 Mechanical Ventilator 30 06/24/17 11:00 79 21 132/55 100 Mechanical Ventilator 30 06/24/17 10:54 70 23 30 06/24/17 10:00 75 21 135/61 100 Mechanical Ventilator 30 Height (Feet): 5 Height (Inches): 9.00 Weight (Pounds): 184 Objective Status: sedated Condition: critical HEENT: atraumatic Lungs: clear Heart: HR/BP stable Abdomen: non-tender, active bowel sounds Extremities: no C/C/E Decubiti: location Laboratory Tests Test 06/25/17 05:25 White Blood Count 5.5 K/UL (4.8-10.8) Red Blood Count 2.36 M/UL (4.70-6.10) L Hemoglobin 7.0 G/DL (14.2-18.0) L Hematocrit 22.1 % (42.0-52.0) L Mean Corpuscular Volume 93 FL (80-99) Mean Corpuscular Hemoglobin 29.8 PG (27.0-31.0) Mean Corpuscular Hemoglobin Concent 31.8 G/DL (32.0-36.0) L Red Cell Distribution Width 15.2 % (11.6-14.8) H Platelet Count 159 K/UL (150-450) Mean Platelet Volume 6.6 FL (6.5-10.1) Neutrophils (%) (Auto) % (45.0-75.0) Lymphocytes (%) (Auto) % (20.0-45.0) Monocytes (%) (Auto) % (1.0-10.0) Eosinophils (%) (Auto) % (0.0-3.0) Basophils (%) (Auto) % (0.0-2.0) Sodium Level 140 MMOL/L (136-145) Potassium Level 3.8 MMOL/L (3.5-5.1) Chloride Level 108 MMOL/L (98-107) H Carbon Dioxide Level 26 MMOL/L (21-32) Anion Gap 7 mmol/L (5-15) Blood Urea Nitrogen 34 mg/dL (7-18) H Creatinine 1.4 MG/DL (0.55-1.30) H Estimat Glomerular Filtration Rate 51.0 mL/min (>60) Glucose Level 168 MG/DL (74-106) H Uric Acid 4.3 MG/DL (2.6-7.2) Calcium Level 6.7 MG/DL (8.5-10.1) L Phosphorus Level 2.4 MG/DL (2.5-4.9) L Magnesium Level 1.9 MG/DL (1.8-2.4) Total Bilirubin 0.2 MG/DL (0.2-1.0) Gamma Glutamyl Transpeptidase 36 U/L (5-85) Aspartate Amino Transf (AST/SGOT) 24 U/L (15-37) Alanine Aminotransferase (ALT/SGPT) 19 U/L (12-78) Alkaline Phosphatase 90 U/L (46-116) Total Creatine Kinase 37 U/L (26-308) Troponin I 0.041 ng/mL (0.000-0.056) C-Reactive Protein, Quantitative 15.4 mg/dL (0.00-0.90) H Pro-B-Type Natriuretic Peptide 6764 pg/mL (0-125) H Total Protein 5.0 G/DL (6.4-8.2) L Albumin 1.2 G/DL (3.4-5.0) L Globulin 3.8 g/dL Albumin/Globulin Ratio 0.3 (1.0-2.7) L Current Medications Medications (Trade) Dose Ordered Sig/Willem Route PRN Reason Start Time Stop Time Status Last Admin Dose Admin Acetaminophen (Tylenol) 650 mg DAILY PRN ORAL Temp > 100.5 06/21/17 01:15 07/21/17 01:14 Acetaminophen (Tylenol) 650 mg Q6H PRN ORAL MILD PAIN (1-4). NTE 3GM/DAY 06/21/17 01:15 07/21/17 01:14 Acetaminophen (Tylenol) 1,000 mg Q6H PRN ORAL MODERATE PAIN (5-7) 06/21/17 01:15 07/21/17 01:14 06/23/17 09:27 Albuterol/ Ipratropium (Albuterol/ Ipratropium) 3 ml Q4HRT PRN HHN sob 06/23/17 08:30 06/28/17 08:29 Amikacin Protocol (Amikacin pharmacy to dose) 1 ea DAILY PRN MISC Per rx protocol 06/23/17 16:30 07/23/17 16:29 Amikacin Sulfate 500 mg/Sodium Chloride 112 ml @ 224 mls/hr Q24H IV 06/23/17 20:00 06/30/17 19:59 06/24/17 19:59 Amlodipine Besylate (Norvasc) 10 mg DAILY GT 06/22/17 09:00 07/21/17 08:59 06/24/17 09:06 Aspirin (Ecotrin) 81 mg DAILY ORAL 06/21/17 09:00 07/21/17 08:59 06/23/17 09:27 Bisacodyl (Dulcolax) 10 mg DAILY PRN RECTAL constipationIF MOM INEFFECTIVE 06/21/17 01:15 07/21/17 01:14 Cefepime HCl 2 gm/ Dextrose 55 ml @ 110 mls/hr Q12H IVPB 06/23/17 18:00 06/30/17 17:59 06/25/17 05:47 Clonidine HCl (Catapres) 0.1 mg Q4H PRN GT bp of 160 syst and above 06/21/17 17:00 07/21/17 16:59 Dextrose (Dextrose 50%) STAT PRN IV Hypoglycemia 06/21/17 06:45 07/21/17 06:44 Famotidine (Pepcid) 20 mg DAILY ORAL 06/22/17 09:00 07/22/17 08:59 06/24/17 09:06 Heparin Sodium (Porcine) (Heparin 5000 units/ml) 5,000 units EVERY 12 HOURS SUBQ 06/21/17 09:00 07/21/17 08:59 06/24/17 20:53 Hydralazine HCl (Apresoline) 10 mg Q6HR GT 06/21/17 18:00 07/21/17 17:59 06/25/17 05:47 Insulin Aspart (NovoLOG) EVERY 6 HOURS SUBQ 06/21/17 12:00 07/21/17 06:29 06/25/17 05:49 Levothyroxine Sodium (Synthroid) 50 mcg ACBREAKFAST GT 06/21/17 06:30 07/21/17 06:29 06/25/17 06:47 Lorazepam (Ativan 2mg/ml 1ml) 2 mg Q3H PRN IV For Anxiety 06/21/17 15:45 06/28/17 15:44 06/23/17 18:08 Metoprolol Tartrate (Lopressor) 50 mg EVERY 12 HOURS GT 06/21/17 09:00 07/21/17 08:59 06/24/17 20:51 Nitroglycerin (Ntg) 0.4 mg Q5M PRN SL CHEST PAIN 06/21/17 01:15 07/21/17 01:14 Sodium Chloride 1,000 ml @ 125 mls/hr Q8H IV 06/22/17 12:30 07/22/17 12:29 06/25/17 05:41 Temazepam (Restoril) 15 mg BEDTIME PRN ORAL Insomnia 06/21/17 01:15 06/28/17 01:14 Vancomycin HCl (Vanco rx to dose) 1 ea DAILY PRN MISC Per rx protocol 06/21/17 11:15 07/21/17 11:14 Vancomycin HCl/ Dextrose 250 ml @ 166.667 mls/hr Q24H IVPB 06/23/17 12:00 06/28/17 11:59 06/24/17 12:01 Hellen Hutchison M.D. Jun 25, 2017 09:54
--- NOTE | 2017-06-25 11:21 | Pulmonolgy Critical Care Note ---
Critical Care - Asmt/Plan Problems: (1) Respiratory failure with hypoxia (2) Acute encephalopathy (3) Urosepsis (4) Non-ST elevation (NSTEMI) myocardial infarction (5) History of CVA (cerebrovascular accident) (6) ATN (acute tubular necrosis) (7) Feeding by G-tube Respiratory: monitor respiratory rate, adjust FIO2, CXR Cardiac: continue to monitor HR/BP Renal: F/U I&O Infectious Disease: check cultures, continue antibiotics Gastrointestinal: continue feedings/current rate Endocrine: monitor blood sugar, check HgA1C, continue sliding scale insulin Hematologic: transfuse if hgb<8.5 Neurologic: PRN Ativan, PRN Morphine, keep patient comfortable Affect: PRN ativan Prophylaxis: Protonix, Heparin Notes Reviewed: allied health teacher, renal Discussed with: nurses, consultants, catalytic case operatoroperations manager station - Objective Last 24 Hour Vital Signs Date Time Temp Pulse Resp B/P (MAP) Pulse Ox O2 Delivery O2 Flow Rate FiO2 06/25/17 11:01 86 28 30 06/25/17 10:00 90 21 143/53 99 Mechanical Ventilator 30 06/25/17 09:49 95 137/54 06/25/17 09:49 95 137/54 06/25/17 09:00 19 137/54 100 Mechanical Ventilator 30 06/25/17 08:49 90 16 30 06/25/17 08:48 100 06/25/17 08:45 30 06/25/17 08:00 30 06/25/17 08:00 98.6 85 16 107/56 98 Mechanical Ventilator 30 06/25/17 07:29 87 19 30 06/25/17 07:00 90 15 115/54 93 Mechanical Ventilator 30 06/25/17 06:00 80 06/25/17 06:00 88 15 117/50 97 Mechanical Ventilator 30 06/25/17 05:47 123/57 06/25/17 05:21 35 15 30 06/25/17 05:00 87 15 123/57 97 Mechanical Ventilator 30 06/25/17 04:00 99.2 83 15 120/50 97 Mechanical Ventilator 30 06/25/17 04:00 83 06/25/17 04:00 30 06/25/17 03:13 82 15 30 06/25/17 03:00 84 15 121/52 97 Mechanical Ventilator 30 1/8/18 02:00 82 15 135/54 98 Mechanical Ventilator 30 06/25/17 01:47 85 15 30 06/25/17 01:00 80 16 120/55 98 Mechanical Ventilator 30 06/25/17 00:17 122/43 06/25/17 00:00 80 06/25/17 00:00 99.0 80 16 97/47 97 Mechanical Ventilator 30 06/24/17 23:51 83 15 30 06/24/17 23:00 83 16 124/43 99 Mechanical Ventilator 30 06/24/17 22:00 82 15 112/56 99 Mechanical Ventilator 30 06/24/17 21:00 72 15 112/56 99 Mechanical Ventilator 30 06/24/17 20:51 89 133/53 06/24/17 20:49 30 06/24/17 20:45 30 06/24/17 20:41 88 23 30 06/24/17 20:00 30 06/24/17 20:00 88 06/24/17 20:00 99.6 88 23 126/54 99 Mechanical Ventilator 30 06/24/17 19:00 87 19 132/60 99 Mechanical Ventilator 30 06/24/17 18:20 139/59 06/24/17 18:00 85 22 139/59 99 Mechanical Ventilator 30 06/24/17 17:00 79 22 142/56 100 Mechanical Ventilator 30 06/24/17 16:50 89 23 30 06/24/17 16:00 30 06/24/17 16:00 90 06/24/17 16:00 98.9 86 22 141/65 98 Mechanical Ventilator 30 06/24/17 15:00 86 22 132/56 99 Mechanical Ventilator 30 06/24/17 14:45 87 25 30 06/24/17 14:00 85 22 135/55 99 Mechanical Ventilator 30 06/24/17 13:00 81 21 140/62 99 Mechanical Ventilator 30 06/24/17 12:58 84 22 30 06/24/17 12:01 132/55 06/24/17 12:00 77 06/24/17 12:00 30 06/24/17 12:00 98.7 87 24 139/63 98 Mechanical Ventilator 30 Accucheck: 136 Critical Care - Subjective ROS Limited/Unobtainable: No ICU Day: 5 Condition: critical EKG Rhythm: Sinus Rhythm FI02: 30 Vent Support Breath Rate: 6 Vent Support Mode: CPAP Vent Tidal Volume: 600 Sputum Amount: Moderate PEEP: 5.0 PIP: 27 Fluids: 1/2 NS 125 cc/hour Tube Feeding Amount: 0 I&O: Intake and Output 06/24/17 06/25/17 19:00 07:00 Intake Total 2325.667 ml 2215 ml Output Total 1840 ml 1240 ml Balance 485.667 ml 975 ml Free Water 60 ml IV Total 1445.667 ml 1555 ml Tube Feeding 660 ml 600 ml Other 220 ml Output Urine Total 1840 ml 1240 ml Stool Total 0 ml # Bowel Movements 1 CXR: no change ET-Tube: 7.5 ET Position: 25 Labs: Laboratory Tests Test 06/25/17 05:25 White Blood Count 5.5 K/UL (4.8-10.8) Red Blood Count 2.36 M/UL (4.70-6.10) L Hemoglobin 7.0 G/DL (14.2-18.0) L Hematocrit 22.1 % (42.0-52.0) L Mean Corpuscular Volume 93 FL (80-99) Mean Corpuscular Hemoglobin 29.8 PG (27.0-31.0) Mean Corpuscular Hemoglobin Concent 31.8 G/DL (32.0-36.0) L Red Cell Distribution Width 15.2 % (11.6-14.8) H Platelet Count 159 K/UL (150-450) Mean Platelet Volume 6.6 FL (6.5-10.1) Neutrophils (%) (Auto) % (45.0-75.0) Lymphocytes (%) (Auto) % (20.0-45.0) Monocytes (%) (Auto) % (1.0-10.0) Eosinophils (%) (Auto) % (0.0-3.0) Basophils (%) (Auto) % (0.0-2.0) Sodium Level 140 MMOL/L (136-145) Potassium Level 3.8 MMOL/L (3.5-5.1) Chloride Level 108 MMOL/L (98-107) H Carbon Dioxide Level 26 MMOL/L (21-32) Anion Gap 7 mmol/L (5-15) Blood Urea Nitrogen 34 mg/dL (7-18) H Creatinine 1.4 MG/DL (0.55-1.30) H Estimat Glomerular Filtration Rate 51.0 mL/min (>60) Glucose Level 168 MG/DL (74-106) H Uric Acid 4.3 MG/DL (2.6-7.2) Calcium Level 6.7 MG/DL (8.5-10.1) L Phosphorus Level 2.4 MG/DL (2.5-4.9) L Magnesium Level 1.9 MG/DL (1.8-2.4) Total Bilirubin 0.2 MG/DL (0.2-1.0) Gamma Glutamyl Transpeptidase 36 U/L (5-85) Aspartate Amino Transf (AST/SGOT) 24 U/L (15-37) Alanine Aminotransferase (ALT/SGPT) 19 U/L (12-78) Alkaline Phosphatase 90 U/L (46-116) Total Creatine Kinase 37 U/L (26-308) Troponin I 0.041 ng/mL (0.000-0.056) C-Reactive Protein, Quantitative 15.4 mg/dL (0.00-0.90) H Pro-B-Type Natriuretic Peptide 6764 pg/mL (0-125) H Total Protein 5.0 G/DL (6.4-8.2) L Albumin 1.2 G/DL (3.4-5.0) L Globulin 3.8 g/dL Albumin/Globulin Ratio 0.3 (1.0-2.7) L JESSE ZAVALA Jun 25, 2017 11:21
--- NOTE | 2017-06-25 11:29 | Nephrology Progress Note ---
Assessment/Plan Problem List: (1) Acute renal failure (2) Respiratory failure requiring intubation (3) Urosepsis (4) Anemia Assessment: worsening Assessment BOOGIE (acute kidney injury), Cr lowering H&H lower Respiratory failure requiring intubation Respiratory failure with hypoxia Aspiration pneumonia, Urosepsis Anemia ACS (acute coronary syndrome), Non St Elevation SD CHF (congestive heart failure) Acute encephalopathy GT feeding Plan plan: transfuse one unit Hydrate- avoid Nephrotoxics monitor renal parameters Keep BP and BS in check Optimize pulmonary and cardiac support Subjective ROS Limited/Unobtainable: Yes Objective Objective Last 24 Hour Vital Signs Date Time Temp Pulse Resp B/P (MAP) Pulse Ox O2 Delivery O2 Flow Rate FiO2 06/25/17 11:01 86 28 30 06/25/17 10:00 90 21 143/53 99 Mechanical Ventilator 30 06/25/17 09:49 95 137/54 06/25/17 09:49 95 137/54 06/25/17 09:00 19 137/54 100 Mechanical Ventilator 30 06/25/17 08:49 90 16 30 06/25/17 08:48 100 06/25/17 08:45 30 06/25/17 08:00 30 06/25/17 08:00 98.6 85 16 107/56 98 Mechanical Ventilator 30 06/25/17 07:29 87 19 30 06/25/17 07:00 90 15 115/54 93 Mechanical Ventilator 30 06/25/17 06:00 80 06/25/17 06:00 88 15 117/50 97 Mechanical Ventilator 30 06/25/17 05:47 123/57 06/25/17 05:21 35 15 30 06/25/17 05:00 87 15 123/57 97 Mechanical Ventilator 30 06/25/17 04:00 99.2 83 15 120/50 97 Mechanical Ventilator 30 06/25/17 04:00 83 06/25/17 04:00 30 06/25/17 03:13 82 15 30 06/25/17 03:00 84 15 121/52 97 Mechanical Ventilator 30 06/25/17 02:00 82 15 135/54 98 Mechanical Ventilator 30 06/25/17 01:47 85 15 30 06/25/17 01:00 80 16 120/55 98 Mechanical Ventilator 30 06/25/17 00:17 122/43 06/25/17 00:00 80 06/25/17 00:00 99.0 80 16 97/47 97 Mechanical Ventilator 30 06/24/17 23:51 83 15 30 06/24/17 23:00 83 16 124/43 99 Mechanical Ventilator 30 06/24/17 22:00 82 15 112/56 99 Mechanical Ventilator 30 06/24/17 21:00 72 15 112/56 99 Mechanical Ventilator 30 06/24/17 20:51 89 133/53 06/24/17 20:49 30 06/24/17 20:45 30 06/24/17 20:41 88 23 30 06/24/17 20:00 30 06/24/17 20:00 88 06/24/17 20:00 99.6 88 23 126/54 99 Mechanical Ventilator 30 06/24/17 19:00 87 19 132/60 99 Mechanical Ventilator 30 06/24/17 18:20 139/59 06/24/17 18:00 85 22 139/59 99 Mechanical Ventilator 30 06/24/17 17:00 79 22 142/56 100 Mechanical Ventilator 30 06/24/17 16:50 89 23 30 06/24/17 16:00 30 06/24/17 16:00 90 06/24/17 16:00 98.9 86 22 141/65 98 Mechanical Ventilator 30 06/24/17 15:00 86 22 132/56 99 Mechanical Ventilator 30 06/24/17 14:45 87 25 30 06/24/17 14:00 85 22 135/55 99 Mechanical Ventilator 30 06/24/17 13:00 81 21 140/62 99 Mechanical Ventilator 30 06/24/17 12:58 84 22 30 06/24/17 12:01 132/55 06/24/17 12:00 77 06/24/17 12:00 30 06/24/17 12:00 98.7 87 24 139/63 98 Mechanical Ventilator 30 Intake and Output 06/24/17 06/25/17 19:00 07:00 Intake Total 2325.667 ml 2215 ml Output Total 1840 ml 1240 ml Balance 485.667 ml 975 ml Free Water 60 ml IV Total 1445.667 ml 1555 ml Tube Feeding 660 ml 600 ml Other 220 ml Output Urine Total 1840 ml 1240 ml Stool Total 0 ml # Bowel Movements 1 Laboratory Tests 06/25/17 05:25: White Blood Count 5.5, Red Blood Count 2.36L, Hemoglobin 7.0L, Hematocrit 22.1L , Mean Corpuscular Volume 93, Mean Corpuscular Hemoglobin 29.8, Mean Corpuscular Hemoglobin Concent 31.8L, Red Cell Distribution Width 15.2H, Platelet Count 159, Mean Platelet Volume 6.6, Neutrophils (%) (Auto) , Lymphocytes (%) (Auto) , Monocytes (%) (Auto) , Eosinophils (%) (Auto) , Basophils (%) (Auto) , Sodium Level 140, Potassium Level 3.8, Chloride Level 108H, Carbon Dioxide Level 26, Anion Gap 7, Blood Urea Nitrogen 34H, Creatinine 1.4H, Estimat Glomerular Filtration Rate 51.0, Glucose Level 168H, Uric Acid 4.3 , Calcium Level 6.7L, Phosphorus Level 2.4L, Magnesium Level 1.9, Total Bilirubin 0.2, Gamma Glutamyl Transpeptidase 36, Aspartate Amino Transf (AST/ SGOT) 24, Alanine Aminotransferase (ALT/SGPT) 19, Alkaline Phosphatase 90, Total Creatine Kinase 37, Troponin I 0.041, C-Reactive Protein, Quantitative 15.4H, Pro-B-Type Natriuretic Peptide 6764H, Total Protein 5.0L, Albumin 1.2L, Globulin 3.8, Albumin/Globulin Ratio 0.3L 06/25/17 11:15: Vancomycin Level Trough [Pending] Height (Feet): 5 Height (Inches): 9.00 Weight (Pounds): 184 General Appearance: no apparent distress, lethargic EENT: other - remains intubated Objective no other changes GARCÍA READ Jun 25, 2017 11:29
--- NOTE | 2017-06-25 21:48 | Diagnostic Imaging Report ---
Indication: Dyspnea Comparison: 06/24/2017 A single view chest radiograph was obtained. Findings: Endotracheal tube is stable. Heart size is stable and normal. Left hemidiaphragm is not visualized on the current study. Bones are unremarkable. IMPRESSION: Developing basilar infiltrate and/or pleural effusion suspected on the left.
--- NOTE | 2017-06-25 22:41 | General Progress Note ---
Assessment/Plan Assessment/Plan 1. Anemia secondary to chronic disease. I worked up the patient about a week ago prior to admission in the patient with anemia of chronic disease. --> Hemoglobin goal >7 --> Hemoglobin currently low, will required PRBC 2. Coagulopathy, malnutrition and vitamin K deficiency. 3. Leukocytosis, likely secondary to underlying infection, sepsis, and antibiotics. 4. Acute hypoxemia, requiring intubation. 5. Lactic acidosis. 6. Acute kidney injury. 7. Dysphagia with gastrostomy tube. 8. Cerebrovascular accident with right-sided hemiplegia. 9. Acute toxic metabolic encephalopathy. 10. Hypothyroidism. Subjective Date patient seen: Jun 25, 2017 Constitutional: Denies: no symptoms, chills, diaphoresis, fever, malaise, weakness, other HEENT: Denies: no symptoms, eye pain, blurred vision, tearing, double vision, ear pain, ear discharge, nose pain, nose congestion, throat pain, throat swelling, mouth pain, mouth swelling, other Cardiovascular: Denies: no symptoms, chest pain, edema, irregular heart rate, lightheadedness, palpitations, syncope, other Respiratory: Denies: no symptoms, cough, orthopnea, shortness of breath, SOB with excertion, SOB at rest, sputum, stridor, wheezing, other Gastrointestinal/Abdominal: Denies: no symptoms, abdomen distended, abdominal pain, black stools, tarry stools, blood in stool, constipated, diarrhea, difficulty swallowing, nausea, poor appetite, poor fluid intake, rectal bleeding , vomiting, other Genitourinary: Denies: no symptoms, burning, discharge, frequency, flank pain, hematuria, incontinence, pain, urgency, other Allergies: Coded Allergies: No Known Allergies (Unverified , 05/11/17) Subjective Hemoglobin low. Resting in bed. Objective Last 24 Hour Vital Signs Date Time Temp Pulse Resp B/P (MAP) Pulse Ox O2 Delivery O2 Flow Rate FiO2 06/25/17 21:05 110 143/60 06/25/17 19:00 105 26 141/46 95 Nasal Cannula 3.0 06/25/17 18:19 140/58 06/25/17 18:00 102 32 140/58 96 Nasal Cannula 3.0 06/25/17 17:00 95 22 144/53 96 Nasal Cannula 3.0 06/25/17 16:00 3.0 06/25/17 16:00 93 06/25/17 16:00 98.9 93 22 143/52 96 Nasal Cannula 3.0 06/25/17 15:00 93 22 141/54 95 Nasal Cannula 3.0 06/25/17 14:46 Nasal Cannula 3.0 32 06/25/17 14:45 98 Nasal Cannula 3.0 32 06/25/17 14:44 Nasal Cannula 3.0 32 06/25/17 14:00 90 29 130/53 99 Mechanical Ventilator 30 06/25/17 13:20 86 20 30 06/25/17 13:00 98.9 88 27 143/49 99 Mechanical Ventilator 30 06/25/17 12:18 139/53 06/25/17 12:00 98.9 86 23 139/53 99 Mechanical Ventilator 30 06/25/17 12:00 30 06/25/17 12:00 87 06/25/17 11:01 86 28 30 06/25/17 11:00 85 23 126/53 99 Mechanical Ventilator 30 06/25/17 10:00 90 21 143/53 99 Mechanical Ventilator 30 06/25/17 09:49 95 137/54 06/25/17 09:49 95 137/54 06/25/17 09:00 19 137/54 100 Mechanical Ventilator 30 06/25/17 08:49 90 16 30 06/25/17 08:48 100 06/25/17 08:45 30 06/25/17 08:00 30 06/25/17 08:00 98.6 85 16 107/56 98 Mechanical Ventilator 30 06/25/17 08:00 82 06/25/17 07:29 87 19 30 06/25/17 07:00 90 15 115/54 93 Mechanical Ventilator 30 06/25/17 06:00 80 06/25/17 06:00 88 15 117/50 97 Mechanical Ventilator 30 06/25/17 05:47 123/57 06/25/17 05:21 35 15 30 06/25/17 05:00 87 15 123/57 97 Mechanical Ventilator 30 06/25/17 04:00 99.2 83 15 120/50 97 Mechanical Ventilator 30 06/25/17 04:00 83 06/25/17 04:00 30 06/25/17 03:13 82 15 30 06/25/17 03:00 84 15 121/52 97 Mechanical Ventilator 30 06/25/17 02:00 82 15 135/54 98 Mechanical Ventilator 30 06/25/17 01:47 85 15 30 06/25/17 01:00 80 16 120/55 98 Mechanical Ventilator 30 06/25/17 00:17 122/43 06/25/17 00:00 80 06/25/17 00:00 99.0 80 16 97/47 97 Mechanical Ventilator 30 06/24/17 23:51 83 15 30 06/24/17 23:00 83 16 124/43 99 Mechanical Ventilator 30 Intake and Output 06/24/17 06/25/17 19:00 07:00 Intake Total 2325.667 ml 2215 ml Output Total 1840 ml 1240 ml Balance 485.667 ml 975 ml Free Water 60 ml IV Total 1445.667 ml 1555 ml Tube Feeding 660 ml 600 ml Other 220 ml Output Urine Total 1840 ml 1240 ml Stool Total 0 ml # Bowel Movements 1 Laboratory Tests 06/25/17 05:25: White Blood Count 5.5, Red Blood Count 2.36L, Hemoglobin 7.0L, Hematocrit 22.1L , Mean Corpuscular Volume 93, Mean Corpuscular Hemoglobin 29.8, Mean Corpuscular Hemoglobin Concent 31.8L, Red Cell Distribution Width 15.2H, Platelet Count 159, Mean Platelet Volume 6.6, Neutrophils (%) (Auto) , Lymphocytes (%) (Auto) , Monocytes (%) (Auto) , Eosinophils (%) (Auto) , Basophils (%) (Auto) , Sodium Level 140, Potassium Level 3.8, Chloride Level 108H, Carbon Dioxide Level 26, Anion Gap 7, Blood Urea Nitrogen 34H, Creatinine 1.4H, Estimat Glomerular Filtration Rate 51.0, Glucose Level 168H, Uric Acid 4.3 , Calcium Level 6.7L, Phosphorus Level 2.4L, Magnesium Level 1.9, Total Bilirubin 0.2, Gamma Glutamyl Transpeptidase 36, Aspartate Amino Transf (AST/ SGOT) 24, Alanine Aminotransferase (ALT/SGPT) 19, Alkaline Phosphatase 90, Total Creatine Kinase 37, Troponin I 0.041, C-Reactive Protein, Quantitative 15.4H, Pro-B-Type Natriuretic Peptide 6764H, Total Protein 5.0L, Albumin 1.2L, Globulin 3.8, Albumin/Globulin Ratio 0.3L 06/25/17 11:15: Vancomycin Level Trough 25.8H 06/25/17 12:00: Arterial Blood pH 7.451H, Arterial Blood Partial Pressure CO2 37.3, Arterial Blood Partial Pressure O2 82.3, Arterial Blood HCO3 25.4, Arterial Blood Oxygen Saturation 96.3, Arterial Blood Base Excess 1.4, Khang Test Positive Height (Feet): 5 Height (Inches): 9.00 Weight (Pounds): 184 General Appearance: no apparent distress EENT: normal ENT inspection Neck: normal alignment Cardiovascular: normal rate, regular rhythm Respiratory/Chest: decreased breath sounds Edema: trace edema Dejan Copeland Jun 25, 2017 22:41
[2017-06-26] VITALS (23 sets, daily range): BP systolic 130–165; BP diastolic 44–76
[2017-06-26] MEDS: HydrALAZINE 10mg Tab GT SCH ×4 (00:10→18:23)
[2017-06-26] MEDS: NovoLOG Insulin Flexpen SUBQ SCH ×4 (00:11→18:26)
[2017-06-26] MEDS: dilTIAZem HCl 30mg tab ORAL SCH ×4 (01:22→18:22)
--- NOTE | 2017-06-26 02:45 | Progress Note ---
DATE: 06/24/2017 CARDIOLOGY PROGRESS NOTE SUBJECTIVE: The patient was seen and evaluated. Case was discussed with ICU staff. OBJECTIVE: GENERAL: The patient is awake and alert, but unable to express himself verbally. VITAL SIGNS: Blood pressure 130/60, pulse 85, respiratory rate 20, temperature 98.9. HEENT: Orally intubated. LUNGS: Bilateral breath sounds with no wheezing. CARDIAC: Regular rhythm and rate. Normal S1, S2 with no murmur. ABDOMEN: Soft. G-tube intact. EXTREMITIES: Revealed trace dependent edema. LABORATORY DATA: White count 8.7, hemoglobin 7.9. BUN 41, creatinine 1.5, bicarbonate 27, potassium 4.4, magnesium 2.0. Cultures reviewed. IMPRESSION: 1. Sepsis with shock, recovered. 2. Respiratory failure. 3. Paroxysmal atrial ectopy. 4. Paroxysmal atrial arrhythmias. 5. Nonsustained ventricular arrhythmias. 6. Pseudomonas pneumonia. 7. Fungal cystitis. 8. Acute renal failure, resolving. 9. Chronic diastolic congestive heart failure. PLAN: 1. Continue weaning efforts. 2. Monitor and replace electrolytes as needed. 3. Advance beta-abdoulaye. 4. Consider addition of calcium abdoulaye if needed for additional suppression of atrial arrhythmias. 5. Diuresis as needed based on clinical parameters. April Padilla JOB#: [id number] CC:
--- NOTE | 2017-06-26 03:15 | Progress Note ---
DATE: 06/25/2017 CARDIOLOGY PROGRESS NOTE SUBJECTIVE: The patient has been extubated. He is in no respiratory distress. He is saturating adequately. He is at baseline level of mentation. He is having frequent atrial ectopic beats and arrhythmias that are nonsustained. OBJECTIVE: VITAL SIGNS: Blood pressure is 143/53, pulse 90, and respiratory rate 21. No fevers. T-max 99.2 degrees. LUNGS: Coarse breath sounds. Scattered rhonchi. No wheezing. HEART: Regular rhythm and rate. Normal S1 and S2 with frequent ectopics. ABDOMEN: Soft. G-tube intact. EXTREMITIES: No edema. LABORATORY DATA: White count is 5.5 and hemoglobin 7. Potassium is 3.8, BUN 34, and creatinine 1.4. Albumin is 1.2. Pro-natriuretic peptide 6700. IMPRESSION: 1. Acute myocardial infarction. 2. Anemia. 3. Status post respiratory failure. 4. Pseudomonas pneumonia. 5. Paroxysmal atrial tachyarrhythmias. RECOMMENDATIONS: 1. Continue beta-abdoulaye. 2. Consider transfusion of packed red blood cell. 3. Add Cardizem for additional suppression of atrial ectopy presently. 4. Nutritional support by feeding tube. 5. Limit use of beta-agonists. 6. Discontinue IV fluids. 7. Reassess for diuresis. Ulisses Gaston M.D. DR: John JOB#: [id number] CC:
[2017-06-26] MEDS: Cefepime HCl 2 GM in D5W 55 ML IVPB SCH ×2 (06:12→18:22)
[2017-06-26 06:50] LABS: BASOPHILS % (AUTO) 0.9 % (0.0-2.0); EOSINOPHILS % (AUTO) 2.3 % (0.0-3.0); HEMOGLOBIN 8.1 G/DL (14.2-18.0); LYMPHOCYTES % (AUTO) 15.4 % (20.0-45.0); MEAN CORPUSCULAR VOLUME 91 FL (80-99); MONOCYTES % (AUTO) 6.5 % (1.0-10.0); NEUTROPHILS % (AUTO) 74.9 % (45.0-75.0); PLATELET COUNT 183 K/UL (150-450); RED BLOOD COUNT 2.76 M/UL (4.70-6.10); RED CELL DISTRIBUTION WIDTH 16.5 % (11.6-14.8); WHITE BLOOD COUNT 4.8 K/UL (4.8-10.8)
[2017-06-26 07:14] LABS: ALANINE AMINOTRANSFERASE 25 U/L (12-78); ALBUMIN 1.3 G/DL (3.4-5.0); ALBUMIN/GLOBULIN RATIO 0.3 (1.0-2.7); ALKALINE PHOSPHATASE 91 U/L (46-116); ANION GAP 7 mmol/L (5-15); ASPARTATE AMINO TRANSFERASE 31 U/L (15-37); BILIRUBIN,TOTAL 0.2 MG/DL (0.2-1.0); BLOOD UREA NITROGEN 46 mg/dL (7-18); CARBON DIOXIDE 27 MMOL/L (21-32); CHLORIDE 109 MMOL/L (98-107); CREATININE 1.4 MG/DL (0.55-1.30); PHOSPHORUS 2.5 MG/DL (2.5-4.9); POTASSIUM 3.7 MMOL/L (3.5-5.1); SODIUM 143 MMOL/L (136-145)
[2017-06-26] MEDS: Metoprolol Tartrate 50mg tab GT SCH ×2 (08:05→21:47)
[2017-06-26] MEDS: Aspirin EC 81mg tab ORAL SCH (08:05)
[2017-06-26] MEDS: Heparin 5000 units/ml inj SUBQ SCH ×2 (08:11→21:48)
--- NOTE | 2017-06-26 09:47 | Nephrology Progress Note ---
Assessment/Plan Problem List: (1) Acute renal failure (2) Respiratory failure requiring intubation (3) Urosepsis (4) Anemia Assessment: worsening (5) Hypoalbuminemia Assessment BOOGIE (acute kidney injury), Cr lowering H&H lower Respiratory failure requiring intubation Respiratory failure with hypoxia Aspiration pneumonia, Urosepsis Anemia ACS (acute coronary syndrome), Non St Elevation WA CHF (congestive heart failure) Acute encephalopathy GT feeding Plan plan: transfuse one unit Hydrate- avoid Nephrotoxics monitor renal parameters Keep BP and BS in check Optimize pulmonary and cardiac support Subjective ROS Limited/Unobtainable: No Constitutional: Reports: other - extubated Objective Objective Last 24 Hour Vital Signs Date Time Temp Pulse Resp B/P (MAP) Pulse Ox O2 Delivery O2 Flow Rate FiO2 06/26/17 08:06 100 147/53 06/26/17 08:05 98 147/54 06/26/17 08:00 98.3 98 27 149/58 100 Nasal Cannula 3.0 06/26/17 08:00 106 06/26/17 07:00 96 24 147/54 92 Nasal Cannula 3.0 06/26/17 06:12 89 157/62 06/26/17 06:12 157/62 06/26/17 06:00 92 24 130/45 92 Nasal Cannula 3.0 06/26/17 05:00 93 24 149/45 92 Nasal Cannula 3.0 06/26/17 04:00 99.2 87 24 140/56 92 Nasal Cannula 3.0 06/26/17 04:00 87 06/26/17 03:00 89 24 149/56 92 Nasal Cannula 3.0 06/26/17 02:00 89 25 152/57 94 Nasal Cannula 3.0 06/26/17 01:22 103 144/57 06/26/17 01:00 90 28 144/57 94 Nasal Cannula 3.0 06/26/17 00:10 146/50 06/26/17 00:00 99.0 97 30 145/50 94 Nasal Cannula 3.0 06/26/17 00:00 97 06/25/17 23:00 98 31 146/50 93 Nasal Cannula 3.0 06/25/17 22:00 99 28 149/49 92 Nasal Cannula 3.0 06/25/17 21:05 110 143/60 06/25/17 21:00 107 28 143/49 92 Nasal Cannula 3.0 06/25/17 20:00 99.2 107 28 159/52 96 Nasal Cannula 3.0 06/25/17 19:30 Nasal Cannula 3.0 32 06/25/17 19:00 105 26 141/46 95 Nasal Cannula 3.0 06/25/17 19:00 97 Nasal Cannula 3.0 32 06/25/17 18:19 140/58 06/25/17 18:00 102 32 140/58 96 Nasal Cannula 3.0 06/25/17 17:00 95 22 144/53 96 Nasal Cannula 3.0 06/25/17 16:00 3.0 06/25/17 16:00 93 06/25/17 16:00 98.9 93 22 143/52 96 Nasal Cannula 3.0 06/25/17 15:00 93 22 141/54 95 Nasal Cannula 3.0 06/25/17 14:46 Nasal Cannula 3.0 32 06/25/17 14:45 98 Nasal Cannula 3.0 32 06/25/17 14:44 Nasal Cannula 3.0 32 06/25/17 14:00 90 29 130/53 99 Mechanical Ventilator 30 06/25/17 13:20 86 20 30 06/25/17 13:00 98.9 88 27 143/49 99 Mechanical Ventilator 30 06/25/17 12:18 139/53 06/25/17 12:00 98.9 86 23 139/53 99 Mechanical Ventilator 30 06/25/17 12:00 30 06/25/17 12:00 87 06/25/17 11:01 86 28 30 06/25/17 11:00 85 23 126/53 99 Mechanical Ventilator 30 06/25/17 10:00 90 21 143/53 99 Mechanical Ventilator 30 06/25/17 09:49 95 137/54 06/25/17 09:49 95 137/54 Intake and Output 06/25/17 06/26/17 19:00 07:00 Intake Total 1575 ml 1465 ml Output Total 1425 ml 1763 ml Balance 150 ml -298 ml Free Water 150 ml IV Total 1035 ml 655 ml Tube Feeding 540 ml 660 ml Output Urine Total 1425 ml 1760 ml Stool Total 0 ml 3 ml # Bowel Movements 3 Laboratory Tests 06/25/17 11:15: Vancomycin Level Trough 25.8H 06/25/17 12:00: Arterial Blood pH 7.451H, Arterial Blood Partial Pressure CO2 37.3, Arterial Blood Partial Pressure O2 82.3, Arterial Blood HCO3 25.4, Arterial Blood Oxygen Saturation 96.3, Arterial Blood Base Excess 1.4, Khang Test Positive 06/26/17 06:00: White Blood Count 4.8, Red Blood Count 2.76L, Hemoglobin 8.1L, Hematocrit 25.0L , Mean Corpuscular Volume 91, Mean Corpuscular Hemoglobin 29.4, Mean Corpuscular Hemoglobin Concent 32.5, Red Cell Distribution Width 16.5H, Platelet Count 183, Mean Platelet Volume 6.8, Neutrophils (%) (Auto) 74.9, Lymphocytes (%) (Auto) 15.4L, Monocytes (%) (Auto) 6.5, Eosinophils (%) (Auto) 2.3, Basophils (%) (Auto) 0.9, Sodium Level 143, Potassium Level 3.7, Chloride Level 109H, Carbon Dioxide Level 27, Anion Gap 7, Blood Urea Nitrogen 46H, Creatinine 1.4H, Estimat Glomerular Filtration Rate 51.0, Glucose Level 239H, Calcium Level 7.0L, Phosphorus Level 2.5, Magnesium Level 1.9, Total Bilirubin 0.2, Aspartate Amino Transf (AST/SGOT) 31, Alanine Aminotransferase (ALT/SGPT) 25, Alkaline Phosphatase 91, Total Protein 5.4L, Albumin 1.3L, Globulin 4.1, Albumin/Globulin Ratio 0.3L 06/26/17 09:10: Arterial Blood pH 7.479H, Arterial Blood Partial Pressure CO2 38.4, Arterial Blood Partial Pressure O2 77.2, Arterial Blood HCO3 27.9H, Arterial Blood Oxygen Saturation 95.7, Arterial Blood Base Excess 4.1, Khang Test Positive Height (Feet): 5 Height (Inches): 9.00 Weight (Pounds): 182 General Appearance: no apparent distress Cardiovascular: tachycardia Respiratory/Chest: decreased breath sounds Abdomen: distended Objective no other changes GARCÍA READ Jun 26, 2017 09:47
--- NOTE | 2017-06-26 09:47 | Pulmonolgy Critical Care Note ---
Critical Care - Asmt/Plan Problems: (1) Respiratory failure with hypoxia (2) Acute encephalopathy (3) Urosepsis (4) Non-ST elevation (NSTEMI) myocardial infarction (5) History of CVA (cerebrovascular accident) (6) ATN (acute tubular necrosis) (7) Feeding by G-tube Respiratory: monitor respiratory rate, adjust FIO2, CXR Cardiac: continue to monitor HR/BP Renal: F/U I&O Infectious Disease: check cultures Gastrointestinal: continue feedings/current rate, hold feedings Endocrine: monitor blood sugar, check HgA1C Hematologic: monitor H/H Neurologic: PRN Morphine, keep patient comfortable Affect: PRN ativan Disposition: transfer to Notes Reviewed: cardio Discussed with: nurses, consultants, residential case managerparking lot manager - Objective Last 24 Hour Vital Signs Date Time Temp Pulse Resp B/P (MAP) Pulse Ox O2 Delivery O2 Flow Rate FiO2 06/26/17 08:06 100 147/53 06/26/17 08:05 98 147/54 06/26/17 08:00 98.3 98 27 149/58 100 Nasal Cannula 3.0 06/26/17 08:00 106 06/26/17 07:00 96 24 147/54 92 Nasal Cannula 3.0 06/26/17 06:12 89 157/62 06/26/17 06:12 157/62 06/26/17 06:00 92 24 130/45 92 Nasal Cannula 3.0 06/26/17 05:00 93 24 149/45 92 Nasal Cannula 3.0 06/26/17 04:00 99.2 87 24 140/56 92 Nasal Cannula 3.0 06/26/17 04:00 87 06/26/17 03:00 89 24 149/56 92 Nasal Cannula 3.0 06/26/17 02:00 89 25 152/57 94 Nasal Cannula 3.0 06/26/17 01:22 103 144/57 06/26/17 01:00 90 28 144/57 94 Nasal Cannula 3.0 06/26/17 00:10 146/50 06/26/17 00:00 99.0 97 30 145/50 94 Nasal Cannula 3.0 06/26/17 00:00 97 06/25/17 23:00 98 31 146/50 93 Nasal Cannula 3.0 06/25/17 22:00 99 28 149/49 92 Nasal Cannula 3.0 06/25/17 21:05 110 143/60 06/25/17 21:00 107 28 143/49 92 Nasal Cannula 3.0 06/25/17 20:00 99.2 107 28 159/52 96 Nasal Cannula 3.0 06/25/17 19:30 Nasal Cannula 3.0 32 06/25/17 19:00 105 26 141/46 95 Nasal Cannula 3.0 06/25/17 19:00 97 Nasal Cannula 3.0 32 06/25/17 18:19 140/58 06/25/17 18:00 102 32 140/58 96 Nasal Cannula 3.0 06/25/17 17:00 95 22 144/53 96 Nasal Cannula 3.0 06/25/17 16:00 3.0 06/25/17 16:00 93 06/25/17 16:00 98.9 93 22 143/52 96 Nasal Cannula 3.0 06/25/17 15:00 93 22 141/54 95 Nasal Cannula 3.0 06/25/17 14:46 Nasal Cannula 3.0 32 06/25/17 14:45 98 Nasal Cannula 3.0 32 06/25/17 14:44 Nasal Cannula 3.0 32 06/25/17 14:00 90 29 130/53 99 Mechanical Ventilator 30 06/25/17 13:20 86 20 30 06/25/17 13:00 98.9 88 27 143/49 99 Mechanical Ventilator 30 06/25/17 12:18 139/53 06/25/17 12:00 98.9 86 23 139/53 99 Mechanical Ventilator 30 06/25/17 12:00 30 06/25/17 12:00 87 06/25/17 11:01 86 28 30 06/25/17 11:00 85 23 126/53 99 Mechanical Ventilator 30 06/25/17 10:00 90 21 143/53 99 Mechanical Ventilator 30 06/25/17 09:49 95 137/54 06/25/17 09:49 95 137/54 Status: awake Condition: critical HEENT: atraumatic Lungs: clear Heart: HR/BP stable Abdomen: soft, active bowel sounds Accucheck: 261 Critical Care - Subjective ROS Limited/Unobtainable: No ICU Day: 6 Intubation Day: 5 Interval Events: tolerating extubation. somnolent FI02: 32 Vent Support Breath Rate: 6 Vent Support Mode: CPAP Vent Tidal Volume: 600 Sputum Amount: Moderate PEEP: 5.0 PIP: 27 Drips: 1/2 NS 50 cc/hour Tube Feeding Amount: 60 I&O: Intake and Output 06/25/17 06/26/17 19:00 07:00 Intake Total 1575 ml 1465 ml Output Total 1425 ml 1763 ml Balance 150 ml -298 ml Free Water 150 ml IV Total 1035 ml 655 ml Tube Feeding 540 ml 660 ml Output Urine Total 1425 ml 1760 ml Stool Total 0 ml 3 ml # Bowel Movements 3 CXR: no changes ET-Tube: 7.5 ET Position: 25 Labs: Laboratory Tests Test 06/25/17 11:15 06/25/17 12:00 06/26/17 06:00 06/26/17 09:10 Vancomycin Level Trough 25.8 ug/mL (5.0-12.0) H Arterial Blood pH 7.451 (7.350-7.450) 7.479 (7.350-7.450) Arterial Blood Partial Pressure CO2 37.3 mmHg (35.0-45.0) 38.4 mmHg (35.0-45.0) Arterial Blood Partial Pressure O2 82.3 mmHg (75.0-100.0) 77.2 mmHg (75.0-100.0) Arterial Blood HCO3 25.4 mmol/L (22.0-26.0) 27.9 mmol/L (22.0-26.0) H Arterial Blood Oxygen Saturation 96.3 % (92.0-98.0) 95.7 % (92.0-98.0) Arterial Blood Base Excess 1.4 4.1 Khang Test Positive Positive White Blood Count 4.8 K/UL (4.8-10.8) Red Blood Count 2.76 M/UL (4.70-6.10) L Hemoglobin 8.1 G/DL (14.2-18.0) L Hematocrit 25.0 % (42.0-52.0) L Mean Corpuscular Volume 91 FL (80-99) Mean Corpuscular Hemoglobin 29.4 PG (27.0-31.0) Mean Corpuscular Hemoglobin Concent 32.5 G/DL (32.0-36.0) Red Cell Distribution Width 16.5 % (11.6-14.8) H Platelet Count 183 K/UL (150-450) Mean Platelet Volume 6.8 FL (6.5-10.1) Neutrophils (%) (Auto) 74.9 % (45.0-75.0) Lymphocytes (%) (Auto) 15.4 % (20.0-45.0) L Monocytes (%) (Auto) 6.5 % (1.0-10.0) Eosinophils (%) (Auto) 2.3 % (0.0-3.0) Basophils (%) (Auto) 0.9 % (0.0-2.0) Sodium Level 143 MMOL/L (136-145) Potassium Level 3.7 MMOL/L (3.5-5.1) Chloride Level 109 MMOL/L (98-107) H Carbon Dioxide Level 27 MMOL/L (21-32) Anion Gap 7 mmol/L (5-15) Blood Urea Nitrogen 46 mg/dL (7-18) H Creatinine 1.4 MG/DL (0.55-1.30) H Estimat Glomerular Filtration Rate 51.0 mL/min (>60) Glucose Level 239 MG/DL (74-106) H Calcium Level 7.0 MG/DL (8.5-10.1) L Phosphorus Level 2.5 MG/DL (2.5-4.9) Magnesium Level 1.9 MG/DL (1.8-2.4) Total Bilirubin 0.2 MG/DL (0.2-1.0) Aspartate Amino Transf (AST/SGOT) 31 U/L (15-37) Alanine Aminotransferase (ALT/SGPT) 25 U/L (12-78) Alkaline Phosphatase 91 U/L (46-116) Total Protein 5.4 G/DL (6.4-8.2) L Albumin 1.3 G/DL (3.4-5.0) L Globulin 4.1 g/dL Albumin/Globulin Ratio 0.3 (1.0-2.7) L JESSE ZAVALA Jun 26, 2017 09:47
--- NOTE | 2017-06-26 10:13 | Infectious Diseases Prog Note ---
Assessment/Plan Assessment/Plan Sepsis 2ry to HCAP, improving -CXR 06/22: Lungs and pleural spaces are clear -CXR: There is infiltrate in the left infrahilar region. There is some atelectasis at the right lung base. There is also retrocardiac consolidation -sp cx: +3 MDR PSA (S. Cefepime, Gentamicin/Amikacin) -u./a WBC 5-10, nit neg, leuk est +1, ucx 10-20K C. albicans (colonzier) -rectal wound cx: ESBL E.coli, PsA (colonizers)- no signs of infection 07/22 CoNS bacteremia- suspect contaminant 06/20 +07/22, 06/21 Neg x4 Fever-resolved leukocytosis-resolved Lactic acidosis- resolved Recent admission at [facility] for sepsis, s/p IV abx (~1 wk [employer]) Acute hypoxic resp failure s/p intubation 06/20- s/p extubation 06/25 BOOGIE, improving Recent gastritis (dx by EGD) Cdiff neg 06/25 Hx of encephalopathy -05/22 CT head: No evidence of acute intracranial hemorrhage, mass effect or cortical edema. MRI may be obtained for more sensitive evaluation as clinically indicated. Stable chronic infarct in the right frontal lobe. Cerebral and cerebellar atrophy greater than expected for age. Clinical correlation recommended. Mild periventricular hypoattenuation suggestive of chronic ischemic microvascular changes. -previous admission:nical correlation recommended. Mild periventricular hypoattenuation suggestive of chronic ischemic microvascular changes. Small area of right frontal encephalomalacia suggestive of old infarct. -UDS neg -TSH normal -Neg: HIV ag/ab, RPR, CrAg serum, FTA-ab -Brain MRI: Chronic and age-related changes. Old right frontal infarct. Negative for acute intracranial bleed, mass effect, or acute infarct hx of VRE and MRSA colonization HTN, CKD, DM2, bipolar dz/schizophrenia, GERD, cardiac arrhythmia, Dementia, CAD with prior TX, MS, osteoporosis, asthma, VIt D def, hypothyroidism, HLD, dysphagia s/p GT, R MCA CVA with left hemiplegia, s/p trach Plan: -Continue Cefepime d# 09/25 -06/25 SP IV vancomycin #5, Amikacin #5 -1/6 SP Meropenem #3 -1/4 SP Amikacin x1 -Monitor CBC/BMP, temperatures -aspiration precautions - wound care Subjective Allergies: Coded Allergies: No Known Allergies (Unverified , 05/11/17) Subjective afebrile no leukocytosis extubated yesterday, no on 3L NC repeat Bcx neg Objective Vital Signs Last 24 Hour Vital Signs Date Time Temp Pulse Resp B/P (MAP) Pulse Ox O2 Delivery O2 Flow Rate FiO2 06/26/17 08:06 100 147/53 06/26/17 08:05 98 147/54 06/26/17 08:00 98.3 98 27 149/58 100 Nasal Cannula 3.0 06/26/17 08:00 106 06/26/17 07:00 96 24 147/54 92 Nasal Cannula 3.0 06/26/17 06:12 89 157/62 06/26/17 06:12 157/62 06/26/17 06:00 92 24 130/45 92 Nasal Cannula 3.0 06/26/17 05:00 93 24 149/45 92 Nasal Cannula 3.0 06/26/17 04:00 99.2 87 24 140/56 92 Nasal Cannula 3.0 06/26/17 04:00 87 06/26/17 03:00 89 24 149/56 92 Nasal Cannula 3.0 06/26/17 02:00 89 25 152/57 94 Nasal Cannula 3.0 06/26/17 01:22 103 144/57 06/26/17 01:00 90 28 144/57 94 Nasal Cannula 3.0 06/26/17 00:10 146/50 06/26/17 00:00 99.0 97 30 145/50 94 Nasal Cannula 3.0 06/26/17 00:00 97 06/25/17 23:00 98 31 146/50 93 Nasal Cannula 3.0 06/25/17 22:00 99 28 149/49 92 Nasal Cannula 3.0 06/25/17 21:05 110 143/60 06/25/17 21:00 107 28 143/49 92 Nasal Cannula 3.0 06/25/17 20:00 99.2 107 28 159/52 96 Nasal Cannula 3.0 06/25/17 19:30 Nasal Cannula 3.0 32 06/25/17 19:00 105 26 141/46 95 Nasal Cannula 3.0 06/25/17 19:00 97 Nasal Cannula 3.0 32 06/25/17 18:19 140/58 06/25/17 18:00 102 32 140/58 96 Nasal Cannula 3.0 06/25/17 17:00 95 22 144/53 96 Nasal Cannula 3.0 06/25/17 16:00 3.0 06/25/17 16:00 93 06/25/17 16:00 98.9 93 22 143/52 96 Nasal Cannula 3.0 06/25/17 15:00 93 22 141/54 95 Nasal Cannula 3.0 06/25/17 14:46 Nasal Cannula 3.0 32 06/25/17 14:45 98 Nasal Cannula 3.0 32 06/25/17 14:44 Nasal Cannula 3.0 32 06/25/17 14:00 90 29 130/53 99 Mechanical Ventilator 30 06/25/17 13:20 86 20 30 06/25/17 13:00 98.9 88 27 143/49 99 Mechanical Ventilator 30 06/25/17 12:18 139/53 06/25/17 12:00 98.9 86 23 139/53 99 Mechanical Ventilator 30 06/25/17 12:00 30 06/25/17 12:00 87 06/25/17 11:01 86 28 30 06/25/17 11:00 85 23 126/53 99 Mechanical Ventilator 30 Height (Feet): 5 Height (Inches): 9.00 Weight (Pounds): 182 Objective Status: sedated Condition: critical HEENT: atraumatic Lungs: clear Heart: HR/BP stable Abdomen: non-tender, active bowel sounds Extremities: no C/C/E Decubiti: location Microbiology Date/Time Source Procedure Growth Status 06/26/17 05:00 Stool Clostridium difficile Toxin Assay - Final Complete Laboratory Tests Test 06/25/17 11:15 06/25/17 12:00 06/26/17 06:00 06/26/17 09:10 Vancomycin Level Trough 25.8 ug/mL (5.0-12.0) H Arterial Blood pH 7.451 (7.350-7.450) 7.479 (7.350-7.450) Arterial Blood Partial Pressure CO2 37.3 mmHg (35.0-45.0) 38.4 mmHg (35.0-45.0) Arterial Blood Partial Pressure O2 82.3 mmHg (75.0-100.0) 77.2 mmHg (75.0-100.0) Arterial Blood HCO3 25.4 mmol/L (22.0-26.0) 27.9 mmol/L (22.0-26.0) H Arterial Blood Oxygen Saturation 96.3 % (92.0-98.0) 95.7 % (92.0-98.0) Arterial Blood Base Excess 1.4 4.1 Khang Test Positive Positive White Blood Count 4.8 K/UL (4.8-10.8) Red Blood Count 2.76 M/UL (4.70-6.10) L Hemoglobin 8.1 G/DL (14.2-18.0) L Hematocrit 25.0 % (42.0-52.0) L Mean Corpuscular Volume 91 FL (80-99) Mean Corpuscular Hemoglobin 29.4 PG (27.0-31.0) Mean Corpuscular Hemoglobin Concent 32.5 G/DL (32.0-36.0) Red Cell Distribution Width 16.5 % (11.6-14.8) H Platelet Count 183 K/UL (150-450) Mean Platelet Volume 6.8 FL (6.5-10.1) Neutrophils (%) (Auto) 74.9 % (45.0-75.0) Lymphocytes (%) (Auto) 15.4 % (20.0-45.0) L Monocytes (%) (Auto) 6.5 % (1.0-10.0) Eosinophils (%) (Auto) 2.3 % (0.0-3.0) Basophils (%) (Auto) 0.9 % (0.0-2.0) Sodium Level 143 MMOL/L (136-145) Potassium Level 3.7 MMOL/L (3.5-5.1) Chloride Level 109 MMOL/L (98-107) H Carbon Dioxide Level 27 MMOL/L (21-32) Anion Gap 7 mmol/L (5-15) Blood Urea Nitrogen 46 mg/dL (7-18) H Creatinine 1.4 MG/DL (0.55-1.30) H Estimat Glomerular Filtration Rate 51.0 mL/min (>60) Glucose Level 239 MG/DL (74-106) H Calcium Level 7.0 MG/DL (8.5-10.1) L Phosphorus Level 2.5 MG/DL (2.5-4.9) Magnesium Level 1.9 MG/DL (1.8-2.4) Iron Level Pending Unsaturated Iron Binding Pending Ferritin Pending Total Bilirubin 0.2 MG/DL (0.2-1.0) Aspartate Amino Transf (AST/SGOT) 31 U/L (15-37) Alanine Aminotransferase (ALT/SGPT) 25 U/L (12-78) Alkaline Phosphatase 91 U/L (46-116) Total Protein 5.4 G/DL (6.4-8.2) L Albumin 1.3 G/DL (3.4-5.0) L Globulin 4.1 g/dL Albumin/Globulin Ratio 0.3 (1.0-2.7) L Current Medications Medications (Trade) Dose Ordered Sig/Willem Route PRN Reason Start Time Stop Time Status Last Admin Dose Admin Acetaminophen (Tylenol) 650 mg DAILY PRN ORAL Temp > 100.5 06/21/17 01:15 07/21/17 01:14 Acetaminophen (Tylenol) 650 mg Q6H PRN ORAL MILD PAIN (1-4). NTE 3GM/DAY 06/21/17 01:15 07/21/17 01:14 Acetaminophen (Tylenol) 1,000 mg Q6H PRN ORAL MODERATE PAIN (5-7) 06/21/17 01:15 07/21/17 01:14 06/23/17 09:27 Albuterol/ Ipratropium (Albuterol/ Ipratropium) 3 ml Q4HRT PRN HHN sob 06/23/17 08:30 06/28/17 08:29 Amlodipine Besylate (Norvasc) 10 mg DAILY GT 06/22/17 09:00 07/21/17 08:59 06/26/17 08:06 Aspirin (Ecotrin) 81 mg DAILY ORAL 06/21/17 09:00 07/21/17 08:59 06/26/17 08:05 Bisacodyl (Dulcolax) 10 mg DAILY PRN RECTAL constipationIF MOM INEFFECTIVE 06/21/17 01:15 07/21/17 01:14 Cefepime HCl 2 gm/ Dextrose 55 ml @ 110 mls/hr Q12H IVPB 06/23/17 18:00 06/30/17 17:59 06/26/17 06:12 Clonidine HCl (Catapres) 0.1 mg Q4H PRN GT bp of 160 syst and above 06/21/17 17:00 07/21/17 16:59 Dextrose (Dextrose 50%) STAT PRN IV Hypoglycemia 06/21/17 06:45 07/21/17 06:44 Diltiazem HCl (Cardizem) 30 mg EVERY 6 HOURS ORAL 06/26/17 01:00 07/26/17 00:59 06/26/17 06:12 Famotidine (Pepcid) 20 mg DAILY ORAL 06/22/17 09:00 07/22/17 08:59 06/26/17 08:05 Heparin Sodium (Porcine) (Heparin 5000 units/ml) 5,000 units EVERY 12 HOURS SUBQ 06/21/17 09:00 07/21/17 08:59 06/26/17 08:11 Hydralazine HCl (Apresoline) 10 mg Q6HR GT 06/21/17 18:00 07/21/17 17:59 06/26/17 06:12 Insulin Aspart (NovoLOG) EVERY 6 HOURS SUBQ 06/21/17 12:00 07/21/17 06:29 06/26/17 06:14 Levothyroxine Sodium (Synthroid) 50 mcg ACBREAKFAST GT 06/21/17 06:30 07/21/17 06:29 06/26/17 06:12 Lorazepam (Ativan 2mg/ml 1ml) 2 mg Q3H PRN IV For Anxiety 06/21/17 15:45 06/28/17 15:44 06/23/17 18:08 Metoprolol Tartrate (Lopressor) 50 mg EVERY 12 HOURS GT 06/21/17 09:00 07/21/17 08:59 06/26/17 08:05 Nitroglycerin (Ntg) 0.4 mg Q5M PRN SL CHEST PAIN 06/21/17 01:15 07/21/17 01:14 Temazepam (Restoril) 15 mg BEDTIME PRN ORAL Insomnia 06/21/17 01:15 06/28/17 01:14 Hellen Hutchison M.D. Jun 26, 2017 10:13
[2017-06-26 11:41] LABS: FERRITIN 1349 NG/ML (8-388)
--- NOTE | 2017-06-26 12:50 | Diagnostic Imaging Report ---
Indication: Dyspnea Comparison: 06/25/2017 A single view chest radiograph was obtained. Findings: Endotracheal tube has been removed. There is mild pulmonary vascular redistribution and prominence, hazy vessel margins and the suggestion of interstitial edema consistent with CHF. Heart size is borderline. Lung volumes are low. IMPRESSION: Probable mild CHF. Please correlate clinically
[2017-06-26 12:53] LABS: IRON 25 ug/dL (50-175)
[2017-06-26 12:54] LABS: % IRON SATURATION 32 % (15-50); TOTAL IRON BINDING CAPACITY 79 ug/dL (250-450)
--- NOTE | 2017-06-26 14:20 | Diagnostic Imaging Report ---
Indication: Shortness of breath Technique: XRAY Chest 1v Comparison: 06/23/2017 Findings: Endotracheal tube has been slightly advanced now with tip 5 cm above the quan. The heart and lungs are stable. Impression: Endotracheal tube advanced from the prior study now with tip 5 cm above the quan. Otherwise stable chest.
--- NOTE | 2017-06-26 14:20 | Diagnostic Imaging Report ---
Indication: Dyspnea Technique: XRAY Chest 1v Comparison: 06/22/2017 Findings: Endotracheal tube tip is at the thoracic inlet and should be advanced 3 cm. Cardiomediastinal silhouette is stable. There is again mild interstitial prominence. Impression: Endotracheal tube tip at the thoracic inlet and should be advanced 3 cm. Otherwise stable chest. Findings discussed with the patient's ICU nurse Natalya.
[2017-06-26] MEDS ORDERED: 1/2 NS 1000ml IV ONE (17:20)
[2017-06-26] MEDS ORDERED: Sterile Water Irrig 1000ml IRRIG ONE (17:20)
[2017-06-26] MEDS ORDERED: LORazepam Inj 2mg/ml 1ml IV PRN (21:00)
[2017-06-26] MEDS ORDERED: Acetaminophen 500mg (ES) tab ORAL PRN (21:00)
[2017-06-26] MEDS ORDERED: Nitroglycerin Subl 0.4mg tab SL PRN (21:00)
--- NOTE | 2017-06-26 23:02 | General Progress Note ---
Assessment/Plan Status: unchanged Assessment/Plan 1. Anemia secondary to chronic disease. I worked up the patient about a week ago prior to admission in the patient with anemia of chronic disease. --> Hemoglobin goal >7 --> S/P PRBC, no complications. Continue to monitor hgb levels daily. 2. Coagulopathy, malnutrition and vitamin K deficiency. Closely monitor. 3. Leukocytosis, likely secondary to underlying infection, sepsis, and antibiotics. --> has resolved, wbc count wnl 4. Acute hypoxemia, requiring intubation. 5. Lactic acidosis. 6. Acute kidney injury. 7. Dysphagia with gastrostomy tube. 8. Cerebrovascular accident with right-sided hemiplegia. 9. Acute toxic metabolic encephalopathy. 10. Hypothyroidism. Subjective Date patient seen: Jun 26, 2017 Constitutional: Denies: no symptoms, chills, diaphoresis, fever, malaise, weakness, other HEENT: Denies: no symptoms, eye pain, blurred vision, tearing, double vision, ear pain, ear discharge, nose pain, nose congestion, throat pain, throat swelling, mouth pain, mouth swelling, other Cardiovascular: Denies: no symptoms, chest pain, edema, irregular heart rate, lightheadedness, palpitations, syncope, other Respiratory: Denies: no symptoms, cough, orthopnea, shortness of breath, SOB with excertion, SOB at rest, sputum, stridor, wheezing, other Gastrointestinal/Abdominal: Denies: no symptoms, abdomen distended, abdominal pain, black stools, tarry stools, blood in stool, constipated, diarrhea, difficulty swallowing, nausea, poor appetite, poor fluid intake, rectal bleeding , vomiting, other Genitourinary: Denies: no symptoms, burning, discharge, frequency, flank pain, hematuria, incontinence, pain, urgency, other Hematologic/Lymphatic: Reports: anemia Allergies: Coded Allergies: No Known Allergies (Unverified , 05/11/17) Subjective S/P blood transfusion. No adverse events. No hematochezia. Objective Last 24 Hour Vital Signs Date Time Temp Pulse Resp B/P (MAP) Pulse Ox O2 Delivery O2 Flow Rate FiO2 06/26/17 21:58 Nasal Cannula 06/26/17 21:47 72 152/66 06/26/17 20:47 98.2 53 20 152/66 95 Room Air 55 72 06/26/17 20:00 87 29 147/59 99 Nasal Cannula 3.0 06/26/17 19:00 96 30 154/52 99 Nasal Cannula 3.0 06/26/17 18:23 165/52 06/26/17 18:22 95 165/52 06/26/17 18:00 88 30 165/52 99 Nasal Cannula 3.0 06/26/17 17:00 97 29 145/58 99 Nasal Cannula 3.0 06/26/17 16:00 96 29 132/50 96 Nasal Cannula 3.0 06/26/17 16:00 97 06/26/17 15:00 97 29 143/71 98 Nasal Cannula 3.0 06/26/17 14:00 96 27 135/46 98 Nasal Cannula 3.0 06/26/17 13:00 97 27 135/46 100 Nasal Cannula 3.0 06/26/17 12:49 98 148/55 06/26/17 12:49 148/55 06/26/17 12:00 98.3 92 30 148/55 99 Nasal Cannula 3.0 06/26/17 12:00 92 06/26/17 11:00 85 29 133/44 100 Nasal Cannula 3.0 06/26/17 10:00 80 24 154/53 100 Nasal Cannula 3.0 06/26/17 09:00 81 28 130/76 100 Nasal Cannula 3.0 06/26/17 08:06 100 147/53 06/26/17 08:05 98 147/54 06/26/17 08:00 98.3 98 27 149/58 100 Nasal Cannula 3.0 06/26/17 08:00 106 06/26/17 07:00 96 24 147/54 92 Nasal Cannula 3.0 06/26/17 06:12 89 157/62 06/26/17 06:12 157/62 06/26/17 06:00 92 24 130/45 92 Nasal Cannula 3.0 06/26/17 05:00 93 24 149/45 92 Nasal Cannula 3.0 06/26/17 04:00 99.2 87 24 140/56 92 Nasal Cannula 3.0 06/26/17 04:00 87 06/26/17 03:00 89 24 149/56 92 Nasal Cannula 3.0 06/26/17 02:00 89 25 152/57 94 Nasal Cannula 3.0 06/26/17 01:22 103 144/57 06/26/17 01:00 90 28 144/57 94 Nasal Cannula 3.0 06/26/17 00:10 146/50 06/26/17 00:00 99.0 97 30 145/50 94 Nasal Cannula 3.0 06/26/17 00:00 97 06/25/17 23:00 98 31 146/50 93 Nasal Cannula 3.0 Intake and Output 06/25/17 06/26/17 19:00 07:00 Intake Total 1575 ml 1465 ml Output Total 1425 ml 1763 ml Balance 150 ml -298 ml Free Water 150 ml IV Total 1035 ml 655 ml Tube Feeding 540 ml 660 ml Output Urine Total 1425 ml 1760 ml Stool Total 0 ml 3 ml # Bowel Movements 3 Laboratory Tests 06/26/17 06:00: White Blood Count 4.8, Red Blood Count 2.76L, Hemoglobin 8.1L, Hematocrit 25.0L , Mean Corpuscular Volume 91, Mean Corpuscular Hemoglobin 29.4, Mean Corpuscular Hemoglobin Concent 32.5, Red Cell Distribution Width 16.5H, Platelet Count 183, Mean Platelet Volume 6.8, Neutrophils (%) (Auto) 74.9, Lymphocytes (%) (Auto) 15.4L, Monocytes (%) (Auto) 6.5, Eosinophils (%) (Auto) 2.3, Basophils (%) (Auto) 0.9, Sodium Level 143, Potassium Level 3.7, Chloride Level 109H, Carbon Dioxide Level 27, Anion Gap 7, Blood Urea Nitrogen 46H, Creatinine 1.4H, Estimat Glomerular Filtration Rate 51.0, Glucose Level 239H, Calcium Level 7.0L, Phosphorus Level 2.5, Magnesium Level 1.9, Iron Level 25L, Total Iron Binding Capacity 79L, Percent Iron Saturation 32, Unsaturated Iron Binding 54L, Ferritin 1349H, Total Bilirubin 0.2, Aspartate Amino Transf (AST/ SGOT) 31, Alanine Aminotransferase (ALT/SGPT) 25, Alkaline Phosphatase 91, Total Protein 5.4L, Albumin 1.3L, Globulin 4.1, Albumin/Globulin Ratio 0.3L 06/26/17 09:10: Arterial Blood pH 7.479H, Arterial Blood Partial Pressure CO2 38.4, Arterial Blood Partial Pressure O2 77.2, Arterial Blood HCO3 27.9H, Arterial Blood Oxygen Saturation 95.7, Arterial Blood Base Excess 4.1, Khang Test Positive Height (Feet): 5 Height (Inches): 9.00 Weight (Pounds): 182 EENT: normal ENT inspection Neck: supple Respiratory/Chest: decreased breath sounds Abdomen: soft Dejan Copeland Jun 26, 2017 23:02
[2017-06-27] MEDS: dilTIAZem HCl 30mg tab ORAL SCH ×4 (01:03→18:05)
[2017-06-27] MEDS: HydrALAZINE 10mg Tab GT SCH ×4 (01:03→18:05)
[2017-06-27] MEDS: NovoLOG Insulin Flexpen SUBQ SCH ×4 (01:04→18:11)
[2017-06-27 03:32] VITALS: BP 149/60
[2017-06-27] MEDS: Cefepime HCl 2 GM in D5W 55 ML IVPB SCH ×2 (05:52→18:05)
[2017-06-27 07:29] LABS: BASOPHILS % (AUTO) 0.8 % (0.0-2.0); EOSINOPHILS % (AUTO) 3.1 % (0.0-3.0); HEMATOCRIT 27.8 % (42.0-52.0); HEMOGLOBIN 8.7 G/DL (14.2-18.0); LYMPHOCYTES % (AUTO) 17.5 % (20.0-45.0); MEAN CORPUSCULAR VOLUME 92 FL (80-99); NEUTROPHILS % (AUTO) 72.7 % (45.0-75.0); PLATELET COUNT 244 K/UL (150-450); RED BLOOD COUNT 3.02 M/UL (4.70-6.10); RED CELL DISTRIBUTION WIDTH 16.8 % (11.6-14.8); WHITE BLOOD COUNT 4.8 K/UL (4.8-10.8)
[2017-06-27 07:51] LABS: ANION GAP 5 mmol/L (5-15); BLOOD UREA NITROGEN 40 mg/dL (7-18); CALCIUM 8.6 MG/DL (8.5-10.1); CARBON DIOXIDE 31 MMOL/L (21-32); CHLORIDE 107 MMOL/L (98-107); CREATININE 1.4 MG/DL (0.55-1.30); POTASSIUM 3.5 MMOL/L (3.5-5.1); SODIUM 143 MMOL/L (136-145)
[2017-06-27 08:15] VITALS: BP 155/66
--- NOTE | 2017-06-27 09:42 | Progress Note ---
DATE: 06/25/2017 SUBJECTIVE: The patient is awake, alert, afebrile, and being weaned. He is now with CPAP level. He tolerates relatively well. PHYSICAL EXAMINATION: VITAL SIGNS: Blood pressure 143/49, his pulse is 88, respirations 27, and temperature is 98.9. HEENT: Eyes were normal. ENT, mucous membranes were moist and intact. NECK: Supple with no JVD without lymph nodes. LUNGS: Clear. HEART: Normal sounds with regular beats. There is no tachycardia at rest. ABDOMEN: Soft and nontender with normal bowel sounds. Gastrostomy site is clean. EXTREMITIES: Warm without cyanosis, clubbing, or edema. LABORATORY DATA: Hemoglobin 7.2, hematocrit 22.9 with MCV of 93, WBC 5.5, and platelets of 159. His BUN and creatinine is 34 and 1.4 respectively. Sodium is 140, potassium 3.8, chloride 108, and CO2 26. His calcium is 6.7. His magnesium is 1.9. His phosphorus is 2.4. Liver function tests are normal with CRP. His troponin is 0.041. His ProBNP is 6700. Albumin is 1.2 with total protein 5. IMPRESSION: The patient had acute respiratory failure, is now being weaned off the ventilator and tolerated the procedure well. Repeat laboratory tests will be done in the morning. In addition, the patient had a drop in hemoglobin and hematocrit and now 02:18 two units of packed RBC will be given. Martina Morales M.D. DR: DEONNA JOB#: [id number] CC:
--- NOTE | 2017-06-27 09:42 | Progress Note ---
DATE: 06/26/2017 SUBJECTIVE: He is awake, alert, afebrile, and hemodynamically stable. He has been extubated last night and he is doing well ever since. PHYSICAL EXAMINATION: VITAL SIGNS: Blood pressure 148/55, pulse is 92, respirations were 27, and temperature was 97. HEENT: Eyes were normal. ENT, mucous membranes were moist and intact. NECK: Supple with no JVD without lymph nodes. LUNGS: Clear. HEART: Normal sounds with regular beats. ABDOMEN: Soft and nontender with normal bowel sounds. Gastrostomy site was clean. EXTREMITIES: Warm without cyanosis, clubbing, or edema. LABORATORY AND DIAGNOSTIC DATA: Hemoglobin is 8.1, hematocrit 25.0 with MCV of 91, WBC of 4.8, and platelets are 183. His BUN and creatinine are 46 and 1.4, respectively. His sodium is 143, potassium 3.7, chloride 109, CO2 is 27, glucose 279. Calcium 7.0, phosphorus is 2.5, magnesium 1.9. Iron saturation is 32. Albumin is 1.38. Total protein is 5.4. His chest x-ray showed congestive heart failure with pulmonary vascular redistribution . IMPRESSION AND PLAN: The patient is doing well. Clinically, he has been extubated with decent arterial blood gases without tachycardia with mild tachypnea. The patient will be transferred out of the ICU. Repeat laboratory tests will be done in the morning. Martina Morales M.D. DR: MAHENDRA JOB#: [id number] CC:
--- NOTE | 2017-06-27 09:43 | Progress Note ---
DATE: 06/26/2017 CARDIOLOGY PROGRESS NOTE SUBJECTIVE: The patient remains in the intensive care unit. He was extubated yesterday. Respiratory parameters are stable, but he requires aggressive hygiene and suctioning. OBJECTIVE: VITAL SIGNS: Blood pressure 149/58, heart rate 98, and respiratory rate 27. He remains with T-max of 99.2. LUNGS: Coarse breath sounds. Scattered rhonchi. HEART: Regular rhythm and rate. Normal S1, S2 with a fourth heart sound. ABDOMEN: Soft. EXTREMITIES: 1+ edema. LABORATORY DATA: White count 4.8 and hemoglobin 8.1. ABG, pH 7.47, pCO2 38, and pO2 77. Sodium 143, potassium 3.7, bicarbonate 27, BUN 46, and creatinine 1.4. Magnesium 1.9. Iron panel consistent with chronic disease. Albumin 1.3. IMPRESSION: 1. Respiratory failure status post extubation. 2. Chronic anemia. 3. Sepsis with shock, recovered. 4. Acute renal failure, improved. 5. Acute on chronic diastolic congestive heart failure, compensated. 6. Severe protein-calorie malnutrition. PLAN: 1. Respiratory hygiene. 2. Antimicrobials. 3. Transfuse for hemoglobin below 8 g. 4. Maintain adequate hydration. 5. Trend natriuretic peptide assay. 6. Nutritional support by feeding tube. 7. Periodic diuresis for mobilization of extravascular fluid. Ulisses Gaston M.D. DR: GISELLE JOB#: [id number] CC:
--- NOTE | 2017-06-27 09:56 | Nephrology Progress Note ---
Assessment/Plan Problem List: (1) Acute renal failure (2) Respiratory failure requiring intubation (3) Urosepsis (4) Anemia Assessment: worsening (5) Hypoalbuminemia Assessment BOOGIE (acute kidney injury), Cr lowering 1.4 stable now H&H lower Respiratory failure requiring intubation Respiratory failure with hypoxia Aspiration pneumonia, Urosepsis Anemia ACS (acute coronary syndrome), Non St Elevation [place] CHF (congestive heart failure) Acute encephalopathy GT feeding Plan plan: transfused Hydrate- avoid Nephrotoxics monitor renal parameters Keep BP and BS in check Optimize pulmonary and cardiac support Subjective ROS Limited/Unobtainable: No Constitutional: Reports: malaise, weakness Objective Objective Last 24 Hour Vital Signs Date Time Temp Pulse Resp B/P (MAP) Pulse Ox O2 Delivery O2 Flow Rate FiO2 06/27/17 08:15 97.1 77 20 155/66 97 Simple Mask 2.0 77 77 06/27/17 07:13 83 20 Nasal Cannula 3.0 32 06/27/17 07:13 Nasal Cannula 3.0 32 06/27/17 07:13 96 Nasal Cannula 3.0 32 06/27/17 05:51 149/60 06/27/17 05:51 62 149/60 06/27/17 04:00 Nasal Cannula 3.0 06/27/17 03:32 99.7 78 20 149/60 96 Room Air 60 62 06/27/17 01:03 152/62 06/27/17 01:03 78 152/62 06/26/17 23:40 98.2 79 20 152/62 93 Room Air 71 78 06/26/17 21:58 Nasal Cannula 06/26/17 21:47 72 152/66 06/26/17 20:47 98.2 53 20 152/66 95 Room Air 55 72 06/26/17 20:00 87 29 147/59 99 Nasal Cannula 3.0 06/26/17 19:30 Nasal Cannula 3.0 32 06/26/17 19:30 70 20 Nasal Cannula 2.0 28 06/26/17 19:30 96 Nasal Cannula 3.0 32 06/26/17 19:00 96 30 154/52 99 Nasal Cannula 3.0 06/26/17 18:23 165/52 06/26/17 18:22 95 165/52 06/26/17 18:00 88 30 165/52 99 Nasal Cannula 3.0 06/26/17 17:00 97 29 145/58 99 Nasal Cannula 3.0 06/26/17 16:00 96 29 132/50 96 Nasal Cannula 3.0 06/26/17 16:00 97 06/26/17 15:00 97 29 143/71 98 Nasal Cannula 3.0 06/26/17 14:00 96 27 135/46 98 Nasal Cannula 3.0 06/26/17 13:00 97 27 135/46 100 Nasal Cannula 3.0 06/26/17 12:49 98 148/55 06/26/17 12:49 148/55 06/26/17 12:00 98.3 92 30 148/55 99 Nasal Cannula 3.0 06/26/17 12:00 92 06/26/17 11:00 85 29 133/44 100 Nasal Cannula 3.0 06/26/17 10:00 80 24 154/53 100 Nasal Cannula 3.0 Intake and Output 06/26/17 06/27/17 19:00 07:00 Intake Total 720 ml 785 ml Output Total 1310 ml Balance -590 ml 785 ml Free Water 0 ml 130 ml IV Total 55 ml Tube Feeding 720 ml 540 ml Blood Product 60 ml Output Urine Total 1310 ml Laboratory Tests 06/27/17 04:55: White Blood Count 4.8, Red Blood Count 3.02L, Hemoglobin 8.7L, Hematocrit 27.8L , Mean Corpuscular Volume 92, Mean Corpuscular Hemoglobin 28.7, Mean Corpuscular Hemoglobin Concent 31.2L, Red Cell Distribution Width 16.8H, Platelet Count 244, Mean Platelet Volume 6.4L, Neutrophils (%) (Auto) 72.7, Lymphocytes (%) (Auto) 17.5L, Monocytes (%) (Auto) 6.0, Eosinophils (%) (Auto) 3.1H, Basophils (%) (Auto) 0.8, Sodium Level 143, Potassium Level 3.5, Chloride Level 107, Carbon Dioxide Level 31, Anion Gap 5, Blood Urea Nitrogen 40H, Creatinine 1.4H, Estimat Glomerular Filtration Rate 51.0, Glucose Level 247H, Calcium Level 8.6#, Pro-B-Type Natriuretic Peptide 07604H Height (Feet): 5 Height (Inches): 9.00 Weight (Pounds): 185 General Appearance: no apparent distress Objective no other changes FOULADIAN,GARCÍA Jun 27, 2017 09:56
[2017-06-27] MEDS: Metoprolol Tartrate 50mg tab GT SCH ×2 (09:59→21:11)
[2017-06-27] MEDS: Aspirin EC 81mg tab ORAL SCH (09:59)
[2017-06-27] MEDS: Heparin 5000 units/ml inj SUBQ SCH ×2 (10:01→21:12)
[2017-06-27 11:52] VITALS: BP 142/73
--- NOTE | 2017-06-27 11:52 | Infectious Diseases Prog Note ---
Assessment/Plan Assessment/Plan Sepsis 2ry to HCAP, improving -CXR 06/22: Lungs and pleural spaces are clear -CXR: There is infiltrate in the left infrahilar region. There is some atelectasis at the right lung base. There is also retrocardiac consolidation -sp cx: +3 MDR PSA (S. Cefepime, Gentamicin/Amikacin) -u./a WBC 5-10, nit neg, leuk est +1, ucx 10-20K C. 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 MRI may be obtained for more sensitive evaluation as clinically indicated. Stable chronic infarct in the right frontal lobe. Cerebral and cerebellar atrophy greater than expected for age. Clinical correlation recommended. Mild periventricular hypoattenuation suggestive of chronic ischemic microvascular changes. -previous admission:nical correlation recommended. Mild periventricular hypoattenuation suggestive of chronic ischemic microvascular changes. Small area of right frontal encephalomalacia suggestive of old infarct. -UDS neg -TSH normal -Neg: HIV ag/ab, RPR, CrAg serum, FTA-ab -Brain MRI: Chronic and age-related changes. Old right frontal infarct. Negative for acute intracranial bleed, mass effect, or acute infarct hx of VRE and MRSA colonization HTN, CKD, DM2, bipolar dz/schizophrenia, GERD, cardiac arrhythmia, Dementia, CAD with prior CT, MS, osteoporosis, asthma, VIt D def, hypothyroidism, HLD, dysphagia s/p GT, R MCA CVA with left hemiplegia, s/p trach Plan: -Continue Cefepime d# / -06/25 SP IV vancomycin #5, Amikacin #5 -1/6 SP Meropenem #3 -1/4 SP Amikacin x1 -Monitor CBC/BMP, temperatures -aspiration precautions - wound care Subjective Allergies: Coded Allergies: No Known Allergies (Unverified , 05/11/17) Subjective afebrile no leukocytosis transferred to the floors at 2L simple mask Objective Vital Signs Last 24 Hour Vital Signs Date Time Temp Pulse Resp B/P (MAP) Pulse Ox O2 Delivery O2 Flow Rate FiO2 06/27/17 10:00 77 155/66 06/27/17 09:59 77 155/66 06/27/17 08:15 97.1 77 20 155/66 97 Simple Mask 2.0 77 77 06/27/17 07:13 83 20 Nasal Cannula 3.0 32 06/27/17 07:13 Nasal Cannula 3.0 32 06/27/17 07:13 96 Nasal Cannula 3.0 32 06/27/17 05:51 149/60 06/27/17 05:51 62 149/60 06/27/17 04:00 Nasal Cannula 3.0 06/27/17 03:32 99.7 78 20 149/60 96 Room Air 60 62 06/27/17 01:03 152/62 06/27/17 01:03 78 152/62 06/26/17 23:40 98.2 79 20 152/62 93 Room Air 71 78 06/26/17 21:58 Nasal Cannula 06/26/17 21:47 72 152/66 06/26/17 20:47 98.2 53 20 152/66 95 Room Air 55 72 06/26/17 20:00 87 29 147/59 99 Nasal Cannula 3.0 06/26/17 19:30 Nasal Cannula 3.0 32 06/26/17 19:30 70 20 Nasal Cannula 2.0 28 06/26/17 19:30 96 Nasal Cannula 3.0 32 06/26/17 19:00 96 30 154/52 99 Nasal Cannula 3.0 06/26/17 18:23 165/52 06/26/17 18:22 95 165/52 06/26/17 18:00 88 30 165/52 99 Nasal Cannula 3.0 06/26/17 17:00 97 29 145/58 99 Nasal Cannula 3.0 06/26/17 16:00 96 29 132/50 96 Nasal Cannula 3.0 06/26/17 16:00 97 06/26/17 15:00 97 29 143/71 98 Nasal Cannula 3.0 06/26/17 14:00 96 27 135/46 98 Nasal Cannula 3.0 06/26/17 13:00 97 27 135/46 100 Nasal Cannula 3.0 06/26/17 12:49 98 148/55 06/26/17 12:49 148/55 06/26/17 12:00 98.3 92 30 148/55 99 Nasal Cannula 3.0 06/26/17 12:00 92 Height (Feet): 5 Height (Inches): 9.00 Weight (Pounds): 185 Objective Status: sedated Condition: critical HEENT: atraumatic Lungs: clear Heart: HR/BP stable Abdomen: non-tender, active bowel sounds Extremities: no C/C/E Decubiti: location Microbiology Date/Time Source Procedure Growth Status 06/26/17 05:00 Stool Clostridium difficile Toxin Assay - Final Complete Laboratory Tests Test 06/27/17 04:55 White Blood Count 4.8 K/UL (4.8-10.8) Red Blood Count 3.02 M/UL (4.70-6.10) L Hemoglobin 8.7 G/DL (14.2-18.0) L Hematocrit 27.8 % (42.0-52.0) L Mean Corpuscular Volume 92 FL (80-99) Mean Corpuscular Hemoglobin 28.7 PG (27.0-31.0) Mean Corpuscular Hemoglobin Concent 31.2 G/DL (32.0-36.0) L Red Cell Distribution Width 16.8 % (11.6-14.8) H Platelet Count 244 K/UL (150-450) Mean Platelet Volume 6.4 FL (6.5-10.1) L Neutrophils (%) (Auto) 72.7 % (45.0-75.0) Lymphocytes (%) (Auto) 17.5 % (20.0-45.0) L Monocytes (%) (Auto) 6.0 % (1.0-10.0) Eosinophils (%) (Auto) 3.1 % (0.0-3.0) H Basophils (%) (Auto) 0.8 % (0.0-2.0) Sodium Level 143 MMOL/L (136-145) Potassium Level 3.5 MMOL/L (3.5-5.1) Chloride Level 107 MMOL/L (98-107) Carbon Dioxide Level 31 MMOL/L (21-32) Anion Gap 5 mmol/L (5-15) Blood Urea Nitrogen 40 mg/dL (7-18) H Creatinine 1.4 MG/DL (0.55-1.30) H Estimat Glomerular Filtration Rate 51.0 mL/min (>60) Glucose Level 247 MG/DL (74-106) H Calcium Level 8.6 MG/DL (8.5-10.1) # Pro-B-Type Natriuretic Peptide 78595 pg/mL (0-125) H Current Medications Medications (Trade) Dose Ordered Sig/Willem Route PRN Reason Start Time Stop Time Status Last Admin Dose Admin Acetaminophen (Tylenol) 650 mg DAILY PRN ORAL Temp > 100.5 06/26/17 21:00 07/26/17 20:59 Acetaminophen (Tylenol) 650 mg Q6H PRN ORAL MILD PAIN (1-4). NTE 3GM/DAY 06/26/17 21:00 07/26/17 20:59 Acetaminophen (Tylenol) 1,000 mg Q6H PRN ORAL MODERATE PAIN (5-7) 06/26/17 21:00 07/26/17 20:59 Albuterol/ Ipratropium (Albuterol/ Ipratropium) 3 ml Q4H PRN HHN Shortness of Breath 06/26/17 21:00 07/01/17 20:59 Amlodipine Besylate (Norvasc) 10 mg DAILY GT 06/27/17 09:00 07/21/17 08:59 06/27/17 10:00 Aspirin (Ecotrin) 81 mg DAILY ORAL 06/27/17 09:00 07/21/17 08:59 06/27/17 09:59 Bisacodyl (Dulcolax) 10 mg DAILYPRN PRN RECTAL constipationIF MOM INEFFECTIVE 06/26/17 21:00 07/26/17 20:59 Bumetanide (Bumex) 1 mg Q12HR IV 06/27/17 11:30 07/27/17 11:29 Cefepime HCl 2 gm/ Dextrose 55 ml @ 110 mls/hr Q12H IVPB 06/27/17 06:00 06/30/17 17:59 06/27/17 05:52 Clonidine HCl (Catapres Tab) 0.1 mg Q4H PRN GT bp of 160 syst and above 06/26/17 21:00 07/21/17 16:59 Dextrose (Dextrose 50%) STAT PRN IV Hypoglycemia 06/26/17 21:00 07/26/17 20:59 Diltiazem HCl (Cardizem) 30 mg EVERY 6 HOURS ORAL 06/27/17 00:00 07/26/17 00:59 06/27/17 05:51 Famotidine (Pepcid) 20 mg DAILY ORAL 06/27/17 09:00 07/22/17 08:59 06/27/17 09:59 Heparin Sodium (Porcine) (Heparin 5000 units/ml) 5,000 units EVERY 12 HOURS SUBQ 06/26/17 21:00 07/21/17 08:59 06/27/17 10:01 Hydralazine HCl (Apresoline) 10 mg Q6HR GT 06/27/17 00:00 07/21/17 17:59 06/27/17 05:51 Insulin Aspart (NovoLOG) EVERY 6 HOURS SUBQ 06/27/17 00:00 07/21/17 06:29 06/27/17 05:54 Levothyroxine Sodium (Synthroid) 50 mcg ACBREAKFAST GT 06/27/17 06:30 07/21/17 06:29 06/27/17 05:51 Lorazepam (Ativan 2mg/ml 1ml) 2 mg Q3H PRN IV For Anxiety 06/26/17 21:00 06/28/17 20:59 Metoprolol Tartrate (Lopressor) 50 mg EVERY 12 HOURS GT 06/26/17 21:00 07/21/17 08:59 06/27/17 09:59 Nitroglycerin (Ntg) 0.4 mg Q5M PRN SL CHEST PAIN 06/26/17 21:00 07/21/17 20:59 Temazepam (Restoril) 15 mg BEDTIME PRN ORAL Insomnia 06/26/17 21:00 06/28/17 01:14 Hellen Hutchison M.D. Jun 27, 2017 11:52
[2017-06-27] MEDS ORDERED: Sterile Water Irrig 1000ml IRRIG ONE (15:30)
[2017-06-27] MEDS ORDERED: NS 500ML ONE (16:14)
[2017-06-27] MEDS: Bumetanide 0.25mg/ml 4ml IV SCH ×2 (16:19→21:11)
[2017-06-27] MEDS ORDERED: 1/2 NS 1000ml IV ONE ×2 (17:04→17:12)
[2017-06-27] MEDS ORDERED: Tubing IV Secondary IV ONE (17:04)
--- NOTE | 2017-06-27 17:05 | Pulmonology Progress Note ---
Assessment/Plan Problems: (1) CHF (congestive heart failure) (2) Aspiration pneumonia (3) History of CVA (cerebrovascular accident) (4) Feeding by G-tube Assessment/Plan f/u cxr diuretics as needed check electrolytes coninue abx dvt prophylaxis Subjective ROS Limited/Unobtainable: No Interval Events: looks comfortable Allergies: Coded Allergies: No Known Allergies (Unverified , 05/11/17) Objective Last 24 Hour Vital Signs Date Time Temp Pulse Resp B/P (MAP) Pulse Ox O2 Delivery O2 Flow Rate FiO2 06/27/17 12:39 142/73 06/27/17 12:39 79 142/73 06/27/17 11:52 97.9 79 18 142/73 96 Nasal Cannula 2.0 79 79 06/27/17 10:00 77 155/66 06/27/17 09:59 77 155/66 06/27/17 08:15 97.1 77 20 155/66 97 Simple Mask 2.0 77 77 06/27/17 07:13 83 20 Nasal Cannula 3.0 32 06/27/17 07:13 Nasal Cannula 3.0 32 06/27/17 07:13 96 Nasal Cannula 3.0 32 06/27/17 05:51 149/60 06/27/17 05:51 62 149/60 06/27/17 04:00 Nasal Cannula 3.0 06/27/17 03:32 99.7 78 20 149/60 96 Room Air 60 62 06/27/17 01:03 152/62 06/27/17 01:03 78 152/62 06/26/17 23:40 98.2 79 20 152/62 93 Room Air 71 78 06/26/17 21:58 Nasal Cannula 06/26/17 21:47 72 152/66 06/26/17 20:47 98.2 53 20 152/66 95 Room Air 55 72 06/26/17 20:00 87 29 147/59 99 Nasal Cannula 3.0 06/26/17 19:30 Nasal Cannula 3.0 32 06/26/17 19:30 70 20 Nasal Cannula 2.0 28 06/26/17 19:30 96 Nasal Cannula 3.0 32 06/26/17 19:00 96 30 154/52 99 Nasal Cannula 3.0 06/26/17 18:23 165/52 1/9/18 18:22 95 165/52 06/26/17 18:00 88 30 165/52 99 Nasal Cannula 3.0 Intake and Output 06/26/17 06/27/17 19:00 07:00 Intake Total 720 ml 785 ml Output Total 1310 ml Balance -590 ml 785 ml Free Water 0 ml 130 ml IV Total 55 ml Tube Feeding 720 ml 540 ml Blood Product 60 ml Output Urine Total 1310 ml Objective General Appearance: no acute distress HEENT: normocephalic, atraumatic Respiratory/Chest: lungs clear, no respiratory distress, no accessory muscle use Cardiovascular: normal rate, no JVD, CL-femoral intact Abdomen: normal bowel sounds, soft, non tender Extremities: no edema Neurologic/Psychiatric: alert, responsive Musculoskeletal: normal muscle bulk Microbiology Date/Time Source Procedure Growth Status 06/26/17 05:00 Stool Clostridium difficile Toxin Assay - Final Complete Laboratory Tests 06/27/17 04:55: White Blood Count 4.8, Red Blood Count 3.02L, Hemoglobin 8.7L, Hematocrit 27.8L , Mean Corpuscular Volume 92, Mean Corpuscular Hemoglobin 28.7, Mean Corpuscular Hemoglobin Concent 31.2L, Red Cell Distribution Width 16.8H, Platelet Count 244, Mean Platelet Volume 6.4L, Neutrophils (%) (Auto) 72.7, Lymphocytes (%) (Auto) 17.5L, Monocytes (%) (Auto) 6.0, Eosinophils (%) (Auto) 3.1H, Basophils (%) (Auto) 0.8, Sodium Level 143, Potassium Level 3.5, Chloride Level 107, Carbon Dioxide Level 31, Anion Gap 5, Blood Urea Nitrogen 40H, Creatinine 1.4H, Estimat Glomerular Filtration Rate 51.0, Glucose Level 247H, Calcium Level 8.6#, Pro-B-Type Natriuretic Peptide [id number] Current Medications Medications (Trade) Dose Ordered Sig/Willem Route PRN Reason Start Time Stop Time Status Last Admin Dose Admin Acetaminophen (Tylenol) 650 mg DAILY PRN ORAL Temp > 100.5 06/26/17 21:00 07/26/17 20:59 Acetaminophen (Tylenol) 650 mg Q6H PRN ORAL MILD PAIN (1-4). NTE 3GM/DAY 06/26/17 21:00 07/26/17 20:59 Acetaminophen (Tylenol) 1,000 mg Q6H PRN ORAL MODERATE PAIN (5-7) 06/26/17 21:00 07/26/17 20:59 Albuterol/ Ipratropium (Albuterol/ Ipratropium) 3 ml Q4H PRN HHN Shortness of Breath 06/26/17 21:00 07/01/17 20:59 Amlodipine Besylate (Norvasc) 10 mg DAILY GT 06/27/17 09:00 07/21/17 08:59 06/27/17 10:00 Aspirin (Ecotrin) 81 mg DAILY ORAL 06/27/17 09:00 07/21/17 08:59 06/27/17 09:59 Bisacodyl (Dulcolax) 10 mg DAILYPRN PRN RECTAL constipationIF MOM INEFFECTIVE 06/26/17 21:00 07/26/17 20:59 Bumetanide (Bumex) 1 mg Q12HR IV 06/27/17 11:30 07/27/17 11:29 06/27/17 16:19 Cefepime HCl 2 gm/ Dextrose 55 ml @ 110 mls/hr Q12H IVPB 06/27/17 06:00 06/30/17 17:59 06/27/17 05:52 Clonidine HCl (Catapres Tab) 0.1 mg Q4H PRN GT bp of 160 syst and above 06/26/17 21:00 07/21/17 16:59 Dextrose (Dextrose 50%) STAT PRN IV Hypoglycemia 06/26/17 21:00 07/26/17 20:59 Diltiazem HCl (Cardizem) 30 mg EVERY 6 HOURS ORAL 06/27/17 00:00 07/26/17 00:59 06/27/17 12:39 Famotidine (Pepcid) 20 mg DAILY ORAL 06/27/17 09:00 07/22/17 08:59 06/27/17 09:59 Heparin Sodium (Porcine) (Heparin 5000 units/ml) 5,000 units EVERY 12 HOURS SUBQ 06/26/17 21:00 07/21/17 08:59 06/27/17 10:01 Hydralazine HCl (Apresoline) 10 mg Q6HR GT 06/27/17 00:00 07/21/17 17:59 06/27/17 12:39 Insulin Aspart (NovoLOG) EVERY 6 HOURS SUBQ 06/27/17 00:00 07/21/17 06:29 06/27/17 12:45 Levothyroxine Sodium (Synthroid) 50 mcg ACBREAKFAST GT 06/27/17 06:30 07/21/17 06:29 06/27/17 05:51 Lorazepam (Ativan 2mg/ml 1ml) 2 mg Q3H PRN IV For Anxiety 06/26/17 21:00 06/28/17 20:59 Metoprolol Tartrate (Lopressor) 50 mg EVERY 12 HOURS GT 06/26/17 21:00 07/21/17 08:59 06/27/17 09:59 Nitroglycerin (Ntg) 0.4 mg Q5M PRN SL CHEST PAIN 06/26/17 21:00 07/21/17 20:59 Temazepam (Restoril) 15 mg BEDTIME PRN ORAL Insomnia 06/26/17 21:00 06/28/17 01:14 JESSE ZAVALA Jun 27, 2017 17:05
[2017-06-27 20:00] VITALS: BP 157/82
--- NOTE | 2017-06-27 22:53 | General Progress Note ---
Assessment/Plan Status: unchanged Assessment/Plan 1. Anemia secondary to chronic disease. I worked up the patient about a week ago prior to admission in the patient with anemia of chronic disease. --> Hemoglobin goal >7 --> S/P PRBC, no complications. Continue to monitor hgb levels daily. --> Hemoglobin stable since transfusion. No further transfusions needed at the moment. 2. Coagulopathy, malnutrition and vitamin K deficiency. Closely monitor. 3. Leukocytosis, likely secondary to underlying infection, sepsis, and antibiotics. --> has resolved, wbc count wnl --> Remains on antibiotics. 4. Acute hypoxemia, requiring intubation. 5. Lactic acidosis. 6. Acute kidney injury. 7. Dysphagia with gastrostomy tube. 8. Cerebrovascular accident with right-sided hemiplegia. 9. Acute toxic metabolic encephalopathy. 10. Hypothyroidism. Subjective Date patient seen: Jun 27, 2017 Constitutional: Denies: no symptoms, chills, diaphoresis, fever, malaise, weakness, other HEENT: Denies: no symptoms, eye pain, blurred vision, tearing, double vision, ear pain, ear discharge, nose pain, nose congestion, throat pain, throat swelling, mouth pain, mouth swelling, other Cardiovascular: Denies: no symptoms, chest pain, edema, irregular heart rate, lightheadedness, palpitations, syncope, other Respiratory: Denies: no symptoms, cough, orthopnea, shortness of breath, SOB with excertion, SOB at rest, sputum, stridor, wheezing, other Gastrointestinal/Abdominal: Denies: no symptoms, abdomen distended, abdominal pain, black stools, tarry stools, blood in stool, constipated, diarrhea, difficulty swallowing, nausea, poor appetite, poor fluid intake, rectal bleeding , vomiting, other Hematologic/Lymphatic: Reports: anemia Allergies: Coded Allergies: No Known Allergies (Unverified , 05/11/17) Subjective Extubated yesterday. No major events. Hemoglobin stable since transfusion. Objective Last 24 Hour Vital Signs Date Time Temp Pulse Resp B/P (MAP) Pulse Ox O2 Delivery O2 Flow Rate FiO2 06/27/17 21:11 79 142/73 06/27/17 20:00 97.9 90 20 157/82 98 06/27/17 18:05 142/73 06/27/17 18:05 79 142/73 06/27/17 12:39 142/73 06/27/17 12:39 79 142/73 06/27/17 11:52 97.9 79 18 142/73 96 Nasal Cannula 2.0 79 79 06/27/17 10:00 77 155/66 06/27/17 09:59 77 155/66 06/27/17 08:15 97.1 77 20 155/66 97 Simple Mask 2.0 77 77 06/27/17 07:13 83 20 Nasal Cannula 3.0 32 06/27/17 07:13 Nasal Cannula 3.0 32 06/27/17 07:13 96 Nasal Cannula 3.0 32 06/27/17 05:51 149/60 06/27/17 05:51 62 149/60 06/27/17 04:00 Nasal Cannula 3.0 06/27/17 03:32 99.7 78 20 149/60 96 Room Air 60 62 06/27/17 01:03 152/62 06/27/17 01:03 78 152/62 06/26/17 23:40 98.2 79 20 152/62 93 Room Air 71 78 Intake and Output 06/26/17 06/27/17 19:00 07:00 Intake Total 720 ml 845 ml Output Total 1310 ml Balance -590 ml 845 ml Free Water 0 ml 130 ml IV Total 55 ml Tube Feeding 720 ml 600 ml Blood Product 60 ml Output Urine Total 1310 ml Laboratory Tests 06/27/17 04:55: White Blood Count 4.8, Red Blood Count 3.02L, Hemoglobin 8.7L, Hematocrit 27.8L , Mean Corpuscular Volume 92, Mean Corpuscular Hemoglobin 28.7, Mean Corpuscular Hemoglobin Concent 31.2L, Red Cell Distribution Width 16.8H, Platelet Count 244, Mean Platelet Volume 6.4L, Neutrophils (%) (Auto) 72.7, Lymphocytes (%) (Auto) 17.5L, Monocytes (%) (Auto) 6.0, Eosinophils (%) (Auto) 3.1H, Basophils (%) (Auto) 0.8, Sodium Level 143, Potassium Level 3.5, Chloride Level 107, Carbon Dioxide Level 31, Anion Gap 5, Blood Urea Nitrogen 40H, Creatinine 1.4H, Estimat Glomerular Filtration Rate 51.0, Glucose Level 247H, Calcium Level 8.6#, Pro-B-Type Natriuretic Peptide [id number] Height (Feet): 5 Height (Inches): 9.00 Weight (Pounds): 185 Dejan Copeland. Jun 27, 2017 22:53
[2017-06-28] VITALS: BP 159/96
--- NOTE | 2017-06-28 00:30 | Progress Note ---
DATE: 06/27/2017 CARDIOLOGY PROGRESS NOTE SUBJECTIVE: The patient remains off ventilator support. No respiratory distress. He continues to require, however, aggressive respiratory hygiene. Monitored rhythm is sinus with rare atrial ectopy. VITAL SIGNS: VITAL SIGNS: Blood pressure 142/73, heart rate 79, respiratory rate 18, and afebrile. LUNGS: Good breath sounds. Few rhonchi. HEART: Regular rhythm and rate. Normal S1, S2. Fourth heart sound. ABDOMEN: Soft. EXTREMITIES: No edema. LABORATORY DATA: White count 4.8 and hemoglobin 8.7. BUN 40 and creatinine 1.4. Natriuretic peptide 14,000. Glucose 247. IMPRESSION: 1. Status post respiratory failure. 2. Acute on chronic diastolic congestive heart failure. 3. Healthcare-acquired pneumonia. 4. Acute renal failure, resolving. 5. Toxic and metabolic encephalopathies. 6. Anemia, multifactorial, status post transfusion. PLAN: 1. Diuresis. 2. Other therapy without change. Ulisses Gaston M.D. DR: GISELLE JOB#: [id number] CC:
[2017-06-28] MEDS: HydrALAZINE 10mg Tab GT SCH ×5 (01:17→23:56)
[2017-06-28] MEDS: NovoLOG Insulin Flexpen SUBQ SCH ×5 (01:35→23:59)
[2017-06-28 04:00] VITALS: BP 150/76
--- NOTE | 2017-06-28 04:45 | Progress Note ---
DATE: 06/27/2017 SUBJECTIVE: The patient was transferred to Medical/Surgical floor and had been doing well. PHYSICAL EXAMINATION: VITAL SIGNS: Blood pressure is 142/73, pulse 79, respirations 20, temperature was 97.9 degrees. HEENT: Eyes were normal. ENT, mucous membranes were moist and intact. NECK: Supple with no JVD without lymph nodes. LUNGS: Clear without rhonchi, rales, or wheezing. HEART: Normal sounds with regular beats. ABDOMEN: Soft and nontender with normal bowel sounds. Gastrostomy site is clean. EXTREMITIES: Warm without cyanosis, clubbing, or edema. LABORATORY AND DIAGNOSTIC DATA: Hemoglobin 8.7, hematocrit 27.8 with MCV of 92, WBC of 4.8, and platelets 244. BUN and creatinine 14 and 1.4 respectively. It was 46 and 1.4 yesterday. Sodium is 143, potassium 3.5, chloride 107, CO2 is 31. His calcium is 8.6. His BNP is increased from . However, clinically the patient does not have peripheral edema, does not have distended jugular venous distention. Chest x-ray revealed mild pulmonary congestion that may be persistent with congestive heart failure. IMPRESSION: The patient has ischemic cardiomyopathy. He will be placed on Bumex 1 mg IV push q.12 h. The patient is already on ANSON inhibitor . Repeat laboratory tests will be done in the morning. Martina Morales M.D. DR: MAHENDRA JOB#: [id number] CC:
[2017-06-28] MEDS: Cefepime HCl 2 GM in D5W 55 ML IVPB SCH ×2 (06:28→18:08)
[2017-06-28 07:39] LABS: BASOPHILS % (AUTO) 0.6 % (0.0-2.0); EOSINOPHILS % (AUTO) 3.3 % (0.0-3.0); HEMATOCRIT 30.7 % (42.0-52.0); HEMOGLOBIN 9.8 G/DL (14.2-18.0); LYMPHOCYTES % (AUTO) 18.2 % (20.0-45.0); MEAN CORPUSCULAR VOLUME 92 FL (80-99); MONOCYTES % (AUTO) 4.9 % (1.0-10.0); PLATELET COUNT 315 K/UL (150-450); RED BLOOD COUNT 3.32 M/UL (4.70-6.10); RED CELL DISTRIBUTION WIDTH 16.3 % (11.6-14.8); WHITE BLOOD COUNT 5.5 K/UL (4.8-10.8)
[2017-06-28 08:26] LABS: PHOSPHORUS 2.9 MG/DL (2.5-4.9)
[2017-06-28 08:31] LABS: ALANINE AMINOTRANSFERASE 32 U/L (12-78); ALBUMIN 1.7 G/DL (3.4-5.0); ALBUMIN/GLOBULIN RATIO 0.3 (1.0-2.7); ALKALINE PHOSPHATASE 119 U/L (46-116); ANION GAP 7 mmol/L (5-15); ASPARTATE AMINO TRANSFERASE 30 U/L (15-37); BILIRUBIN,TOTAL 0.2 MG/DL (0.2-1.0); BLOOD UREA NITROGEN 40 mg/dL (7-18); CARBON DIOXIDE 33 MMOL/L (21-32); CHLORIDE 105 MMOL/L (98-107); CREATININE 1.5 MG/DL (0.55-1.30); POTASSIUM 4.4 MMOL/L (3.5-5.1); SODIUM 145 MMOL/L (136-145)
[2017-06-28] MEDS: Heparin 5000 units/ml inj SUBQ SCH ×2 (10:20→21:30)
[2017-06-28] MEDS: Aspirin EC 81mg tab ORAL SCH (10:22)
[2017-06-28] MEDS: Metoprolol Tartrate 50mg tab GT SCH ×2 (10:25→21:29)
[2017-06-28] MEDS: Bumetanide 0.25mg/ml 4ml IV SCH ×2 (10:38→21:29)
--- NOTE | 2017-06-28 11:29 | Nephrology Progress Note ---
Assessment/Plan Problem List: (1) Acute renal failure (2) Respiratory failure requiring intubation (3) Urosepsis (4) Anemia Assessment: worsening (5) Hypoalbuminemia Assessment BOOGIE (acute kidney injury), Cr lowering 1.5 stable now H&H lower Respiratory failure requiring intubation Respiratory failure with hypoxia Aspiration pneumonia, Urosepsis Anemia ACS (acute coronary syndrome), Non St Elevation LA CHF (congestive heart failure) Acute encephalopathy GT feeding Plan plan: transfused Hydrate- avoid Nephrotoxics monitor renal parameters Keep BP and BS in check Optimize pulmonary and cardiac support Subjective ROS Limited/Unobtainable: No Constitutional: Reports: malaise Objective Objective Last 24 Hour Vital Signs Date Time Temp Pulse Resp B/P (MAP) Pulse Ox O2 Delivery O2 Flow Rate FiO2 06/28/17 10:27 81 150/76 06/28/17 10:25 81 150/76 06/28/17 09:27 Nasal Cannula 3.0 32 06/28/17 09:26 97 Nasal Cannula 3.0 32 06/28/17 07:20 81 20 Nasal Cannula 3.0 32 06/28/17 06:28 150/76 06/28/17 04:00 Nasal Cannula 3.0 06/28/17 04:00 97.7 76 20 150/76 97 06/28/17 01:17 159/96 06/28/17 00:00 Nasal Cannula 3.0 06/28/17 00:00 97.7 90 20 159/96 98 06/27/17 21:11 79 142/73 06/27/17 20:00 97.9 90 20 157/82 98 06/27/17 20:00 Nasal Cannula 3.0 06/27/17 18:05 142/73 06/27/17 18:05 79 142/73 06/27/17 12:39 142/73 06/27/17 12:39 79 142/73 06/27/17 11:52 97.9 79 18 142/73 96 Nasal Cannula 2.0 79 79 Intake and Output 06/27/17 06/28/17 19:00 07:00 Intake Total 930 ml 1035 ml Output Total 1900 ml 1600 ml Balance -970 ml -565 ml Free Water 210 ml 150 ml IV Total 165 ml Tube Feeding 720 ml 720 ml Output Urine Total 1900 ml 1600 ml # Bowel Movements 1 Laboratory Tests 06/28/17 05:40: White Blood Count 5.5, Red Blood Count 3.32L, Hemoglobin 9.8L, Hematocrit 30.7L , Mean Corpuscular Volume 92, Mean Corpuscular Hemoglobin 29.6, Mean Corpuscular Hemoglobin Concent 32.0, Red Cell Distribution Width 16.3H, Platelet Count 315, Mean Platelet Volume 6.4L, Neutrophils (%) (Auto) 73.0, Lymphocytes (%) (Auto) 18.2L, Monocytes (%) (Auto) 4.9, Eosinophils (%) (Auto) 3.3H, Basophils (%) (Auto) 0.6, Sodium Level 145, Potassium Level 4.4, Chloride Level 105, Carbon Dioxide Level 33H, Anion Gap 7, Blood Urea Nitrogen 40H, Creatinine 1.5H, Estimat Glomerular Filtration Rate 47.1, Glucose Level 256H, Calcium Level 9.0, Phosphorus Level 2.9, Magnesium Level 1.9, Total Bilirubin 0.2, Aspartate Amino Transf (AST/SGOT) 30, Alanine Aminotransferase (ALT/SGPT) 32, Alkaline Phosphatase 119H, Total Protein 6.9, Albumin 1.7L, Globulin 5.2, Albumin/Globulin Ratio 0.3L Height (Feet): 5 Height (Inches): 9.00 Weight (Pounds): 190 General Appearance: no apparent distress Cardiovascular: normal rate Respiratory/Chest: decreased breath sounds Abdomen: soft Objective no other changes GARCÍA READ Jun 28, 2017 11:29
--- NOTE | 2017-06-28 16:53 | Infectious Diseases Prog Note ---
Assessment/Plan Assessment/Plan Sepsis 2ry to HCAP, improving -CXR 06/22: Lungs and pleural spaces are clear -CXR: There is infiltrate in the left infrahilar region. There is some atelectasis at the right lung base. There is also retrocardiac consolidation -sp cx: +3 MDR PSA (S. Cefepime, Gentamicin/Amikacin) -u./a WBC 5-10, nit neg, leuk est +1, ucx 10-20K C. albicans (colonzier) -rectal wound cx: ESBL E.coli, PsA (colonizers)- no signs of infection 07/22 CoNS bacteremia- suspect contaminant 06/20 +07/22, 06/21 Neg x4 Fever-resolved leukocytosis-resolved Lactic acidosis- resolved Recent admission at [facility]SH for sepsis, s/p IV abx (~1 wk [employer]) Acute hypoxic resp failure s/p intubation 06/20- s/p extubation 06/25 BOOGIE, improving Recent gastritis (dx by EGD) Cdiff neg 06/25 Hx of encephalopathy -05/22 CT head: No evidence of acute intracranial hemorrhage, mass effect or cortical edema. MRI may be obtained for more sensitive evaluation as clinically indicated. Stable chronic infarct in the right frontal lobe. Cerebral and cerebellar atrophy greater than expected for age. Clinical correlation recommended. Mild periventricular hypoattenuation suggestive of chronic ischemic microvascular changes. -previous admission:nical correlation recommended. Mild periventricular hypoattenuation suggestive of chronic ischemic microvascular changes. Small area of right frontal encephalomalacia suggestive of old infarct. -UDS neg -TSH normal -Neg: HIV ag/ab, RPR, CrAg serum, FTA-ab -Brain MRI: Chronic and age-related changes. Old right frontal infarct. Negative for acute intracranial bleed, mass effect, or acute infarct hx of VRE and MRSA colonization HTN, CKD, DM2, bipolar dz/schizophrenia, GERD, cardiac arrhythmia, Dementia, CAD with prior HI, MS, osteoporosis, asthma, VIt D def, hypothyroidism, HLD, dysphagia s/p GT, R MCA CVA with left hemiplegia, s/p trach Plan: -Continue Cefepime d# / -06/25 SP IV vancomycin #5, Amikacin #5 -6 SP Meropenem #3 -1/4 SP Amikacin x1 -Monitor CBC/BMP, temperatures -aspiration precautions - wound care Subjective Allergies: Coded Allergies: No Known Allergies (Unverified , 05/11/17) Subjective afebrile no leukocytosis on 3L NC Objective Vital Signs Last 24 Hour Vital Signs Date Time Temp Pulse Resp B/P (MAP) Pulse Ox O2 Delivery O2 Flow Rate FiO2 06/28/17 12:27 143/75 06/28/17 10:27 81 150/76 06/28/17 10:25 81 150/76 06/28/17 09:27 Nasal Cannula 3.0 32 06/28/17 09:26 97 Nasal Cannula 3.0 32 06/28/17 07:20 81 20 Nasal Cannula 3.0 32 06/28/17 06:28 150/76 06/28/17 04:00 Nasal Cannula 3.0 06/28/17 04:00 97.7 76 20 150/76 97 06/28/17 01:17 159/96 06/28/17 00:00 Nasal Cannula 3.0 06/28/17 00:00 97.7 90 20 159/96 98 06/27/17 21:11 79 142/73 06/27/17 20:00 97.9 90 20 157/82 98 06/27/17 20:00 Nasal Cannula 3.0 06/27/17 18:05 142/73 06/27/17 18:05 79 142/73 Height (Feet): 5 Height (Inches): 9.00 Weight (Pounds): 190 Objective Status: sedated Condition: critical HEENT: atraumatic Lungs: clear Heart: HR/BP stable Abdomen: non-tender, active bowel sounds Extremities: no C/C/E Decubiti: location Microbiology Date/Time Source Procedure Growth Status 06/26/17 05:00 Stool Clostridium difficile Toxin Assay - Final Complete Laboratory Tests Test 06/28/17 05:40 White Blood Count 5.5 K/UL (4.8-10.8) Red Blood Count 3.32 M/UL (4.70-6.10) L Hemoglobin 9.8 G/DL (14.2-18.0) L Hematocrit 30.7 % (42.0-52.0) L Mean Corpuscular Volume 92 FL (80-99) Mean Corpuscular Hemoglobin 29.6 PG (27.0-31.0) Mean Corpuscular Hemoglobin Concent 32.0 G/DL (32.0-36.0) Red Cell Distribution Width 16.3 % (11.6-14.8) H Platelet Count 315 K/UL (150-450) Mean Platelet Volume 6.4 FL (6.5-10.1) L Neutrophils (%) (Auto) 73.0 % (45.0-75.0) Lymphocytes (%) (Auto) 18.2 % (20.0-45.0) L Monocytes (%) (Auto) 4.9 % (1.0-10.0) Eosinophils (%) (Auto) 3.3 % (0.0-3.0) H Basophils (%) (Auto) 0.6 % (0.0-2.0) Sodium Level 145 MMOL/L (136-145) Potassium Level 4.4 MMOL/L (3.5-5.1) Chloride Level 105 MMOL/L (98-107) Carbon Dioxide Level 33 MMOL/L (21-32) H Anion Gap 7 mmol/L (5-15) Blood Urea Nitrogen 40 mg/dL (7-18) H Creatinine 1.5 MG/DL (0.55-1.30) H Estimat Glomerular Filtration Rate 47.1 mL/min (>60) Glucose Level 256 MG/DL (74-106) H Calcium Level 9.0 MG/DL (8.5-10.1) Phosphorus Level 2.9 MG/DL (2.5-4.9) Magnesium Level 1.9 MG/DL (1.8-2.4) Total Bilirubin 0.2 MG/DL (0.2-1.0) Aspartate Amino Transf (AST/SGOT) 30 U/L (15-37) Alanine Aminotransferase (ALT/SGPT) 32 U/L (12-78) Alkaline Phosphatase 119 U/L (46-116) H Total Protein 6.9 G/DL (6.4-8.2) Albumin 1.7 G/DL (3.4-5.0) L Globulin 5.2 g/dL Albumin/Globulin Ratio 0.3 (1.0-2.7) L Current Medications Medications (Trade) Dose Ordered Sig/Willem Route PRN Reason Start Time Stop Time Status Last Admin Dose Admin Acetaminophen (Tylenol) 650 mg DAILY PRN ORAL Temp > 100.5 1/9/18 21:00 07/26/17 20:59 Acetaminophen (Tylenol) 650 mg Q6H PRN ORAL MILD PAIN (1-4). NTE 3GM/DAY 06/26/17 21:00 07/26/17 20:59 Acetaminophen (Tylenol) 1,000 mg Q6H PRN ORAL MODERATE PAIN (5-7) 06/26/17 21:00 07/26/17 20:59 Albuterol/ Ipratropium (Albuterol/ Ipratropium) 3 ml Q4H PRN HHN Shortness of Breath 06/26/17 21:00 07/01/17 20:59 Amlodipine Besylate (Norvasc) 10 mg DAILY GT 06/27/17 09:00 07/21/17 08:59 06/28/17 10:27 Aspirin (Ecotrin) 81 mg DAILY ORAL 06/27/17 09:00 07/21/17 08:59 06/28/17 10:22 Bisacodyl (Dulcolax) 10 mg DAILYPRN PRN RECTAL constipationIF MOM INEFFECTIVE 06/26/17 21:00 07/26/17 20:59 Bumetanide (Bumex) 1 mg Q12HR IV 06/27/17 11:30 07/27/17 11:29 06/28/17 10:38 Cefepime HCl 2 gm/ Dextrose 55 ml @ 110 mls/hr Q12H IVPB 06/27/17 06:00 06/30/17 17:59 06/28/17 06:28 Clonidine HCl (Catapres Tab) 0.1 mg Q4H PRN GT bp of 160 syst and above 06/26/17 21:00 07/21/17 16:59 Dextrose (Dextrose 50%) STAT PRN IV Hypoglycemia 06/26/17 21:00 07/26/17 20:59 Famotidine (Pepcid) 20 mg DAILY ORAL 06/27/17 09:00 07/22/17 08:59 06/28/17 10:22 Furosemide (Lasix) 40 mg DAILY IV 06/28/17 09:00 07/28/17 08:59 UNV Heparin Sodium (Porcine) (Heparin 5000 units/ml) 5,000 units EVERY 12 HOURS SUBQ 06/26/17 21:00 07/21/17 08:59 06/28/17 10:20 Hydralazine HCl (Apresoline) 10 mg Q6HR GT 06/27/17 00:00 07/21/17 17:59 06/28/17 12:27 Insulin Aspart (NovoLOG) EVERY 6 HOURS SUBQ 06/27/17 00:00 07/21/17 06:29 06/28/17 12:26 Levothyroxine Sodium (Synthroid) 50 mcg ACBREAKFAST GT 06/27/17 06:30 07/21/17 06:29 06/28/17 06:28 Lorazepam (Ativan 2mg/ml 1ml) 2 mg Q3H PRN IV For Anxiety 06/26/17 21:00 06/28/17 20:59 Metoprolol Tartrate (Lopressor) 50 mg EVERY 12 HOURS GT 06/26/17 21:00 07/21/17 08:59 06/28/17 10:25 Nitroglycerin (Ntg) 0.4 mg Q5M PRN SL CHEST PAIN 06/26/17 21:00 07/21/17 20:59 Potassium Chloride (K-Dur) 40 meq DAILY GT 06/28/17 09:00 07/28/17 08:59 06/28/17 10:26 Hellen Hutchison M.D. Jun 28, 2017 16:53
--- NOTE | 2017-06-28 19:07 | Pulmonology Progress Note ---
Assessment/Plan Problems: (1) CHF (congestive heart failure) (2) Aspiration pneumonia (3) History of CVA (cerebrovascular accident) (4) Feeding by G-tube Assessment/Plan f/u cxr diuretics as needed check electrolytes coninue abx dvt prophylaxis all note reviewed, All medications and treatment were reviewed.r Subjective ROS Limited/Unobtainable: No Allergies: Coded Allergies: No Known Allergies (Unverified , 05/11/17) Objective Last 24 Hour Vital Signs Date Time Temp Pulse Resp B/P (MAP) Pulse Ox O2 Delivery O2 Flow Rate FiO2 06/28/17 18:07 143/75 06/28/17 12:27 143/75 06/28/17 10:27 81 150/76 06/28/17 10:25 81 150/76 06/28/17 09:27 Nasal Cannula 3.0 32 06/28/17 09:26 97 Nasal Cannula 3.0 32 06/28/17 07:20 81 20 Nasal Cannula 3.0 32 06/28/17 06:28 150/76 06/28/17 04:00 Nasal Cannula 3.0 06/28/17 04:00 97.7 76 20 150/76 97 06/28/17 01:17 159/96 06/28/17 00:00 Nasal Cannula 3.0 06/28/17 00:00 97.7 90 20 159/96 98 06/27/17 21:11 79 142/73 06/27/17 20:00 97.9 90 20 157/82 98 06/27/17 20:00 Nasal Cannula 3.0 Intake and Output 06/27/17 06/28/17 19:00 07:00 Intake Total 930 ml 1035 ml Output Total 1900 ml 1600 ml Balance -970 ml -565 ml Free Water 210 ml 150 ml IV Total 165 ml Tube Feeding 720 ml 720 ml Output Urine Total 1900 ml 1600 ml # Bowel Movements 1 Objective General Appearance: no acute distress HEENT: normocephalic, atraumatic Respiratory/Chest: lungs clear, no respiratory distress, no accessory muscle use Cardiovascular: normal rate, no JVD, CL-femoral intact Abdomen: normal bowel sounds, soft, non tender Extremities: no edema Neurologic/Psychiatric: alert, responsive Musculoskeletal: normal muscle bulk Microbiology Date/Time Source Procedure Growth Status 06/26/17 05:00 Stool Clostridium difficile Toxin Assay - Final Complete Laboratory Tests 06/28/17 05:40: White Blood Count 5.5, Red Blood Count 3.32L, Hemoglobin 9.8L, Hematocrit 30.7L , Mean Corpuscular Volume 92, Mean Corpuscular Hemoglobin 29.6, Mean Corpuscular Hemoglobin Concent 32.0, Red Cell Distribution Width 16.3H, Platelet Count 315, Mean Platelet Volume 6.4L, Neutrophils (%) (Auto) 73.0, Lymphocytes (%) (Auto) 18.2L, Monocytes (%) (Auto) 4.9, Eosinophils (%) (Auto) 3.3H, Basophils (%) (Auto) 0.6, Sodium Level 145, Potassium Level 4.4, Chloride Level 105, Carbon Dioxide Level 33H, Anion Gap 7, Blood Urea Nitrogen 40H, Creatinine 1.5H, Estimat Glomerular Filtration Rate 47.1, Glucose Level 256H, Calcium Level 9.0, Phosphorus Level 2.9, Magnesium Level 1.9, Total Bilirubin 0.2, Aspartate Amino Transf (AST/SGOT) 30, Alanine Aminotransferase (ALT/SGPT) 32, Alkaline Phosphatase 119H, Total Protein 6.9, Albumin 1.7L, Globulin 5.2, Albumin/Globulin Ratio 0.3L Current Medications Medications (Trade) Dose Ordered Sig/Willem Route PRN Reason Start Time Stop Time Status Last Admin Dose Admin Acetaminophen (Tylenol) 650 mg DAILY PRN ORAL Temp > 100.5 06/26/17 21:00 07/26/17 20:59 Acetaminophen (Tylenol) 650 mg Q6H PRN ORAL MILD PAIN (1-4). NTE 3GM/DAY 06/26/17 21:00 07/26/17 20:59 Acetaminophen (Tylenol) 1,000 mg Q6H PRN ORAL MODERATE PAIN (5-7) 06/26/17 21:00 07/26/17 20:59 Albuterol/ Ipratropium (Albuterol/ Ipratropium) 3 ml Q4H PRN HHN Shortness of Breath 06/26/17 21:00 07/01/17 20:59 Amlodipine Besylate (Norvasc) 10 mg DAILY GT 06/27/17 09:00 07/21/17 08:59 06/28/17 10:27 Aspirin (Ecotrin) 81 mg DAILY ORAL 06/27/17 09:00 07/21/17 08:59 06/28/17 10:22 Bisacodyl (Dulcolax) 10 mg DAILYPRN PRN RECTAL constipationIF MOM INEFFECTIVE 06/26/17 21:00 07/26/17 20:59 Bumetanide (Bumex) 1 mg Q12HR IV 06/27/17 11:30 07/27/17 11:29 06/28/17 10:38 Cefepime HCl 2 gm/ Dextrose 55 ml @ 110 mls/hr Q12H IVPB 06/27/17 06:00 06/30/17 17:59 06/28/17 18:08 Clonidine HCl (Catapres Tab) 0.1 mg Q4H PRN GT bp of 160 syst and above 06/26/17 21:00 07/21/17 16:59 Dextrose (Dextrose 50%) STAT PRN IV Hypoglycemia 06/26/17 21:00 07/26/17 20:59 Famotidine (Pepcid) 20 mg DAILY ORAL 06/27/17 09:00 07/22/17 08:59 06/28/17 10:22 Furosemide (Lasix) 40 mg DAILY IV 06/28/17 09:00 07/28/17 08:59 UNV Heparin Sodium (Porcine) (Heparin 5000 units/ml) 5,000 units EVERY 12 HOURS SUBQ 06/26/17 21:00 07/21/17 08:59 06/28/17 10:20 Hydralazine HCl (Apresoline) 10 mg Q6HR GT 06/27/17 00:00 07/21/17 17:59 06/28/17 18:07 Insulin Aspart (NovoLOG) EVERY 6 HOURS SUBQ 06/27/17 00:00 07/21/17 06:29 06/28/17 18:11 Levothyroxine Sodium (Synthroid) 50 mcg ACBREAKFAST GT 06/27/17 06:30 07/21/17 06:29 06/28/17 06:28 Lorazepam (Ativan 2mg/ml 1ml) 2 mg Q3H PRN IV For Anxiety 06/26/17 21:00 06/28/17 20:59 Metoprolol Tartrate (Lopressor) 50 mg EVERY 12 HOURS GT 06/26/17 21:00 07/21/17 08:59 06/28/17 10:25 Nitroglycerin (Ntg) 0.4 mg Q5M PRN SL CHEST PAIN 06/26/17 21:00 07/21/17 20:59 Potassium Chloride (K-Dur) 40 meq DAILY GT 06/28/17 09:00 07/28/17 08:59 06/28/17 10:26 JESSE ZAVALA Jun 28, 2017 19:07
[2017-06-28 20:00] VITALS: BP 150/74
--- NOTE | 2017-06-28 20:32 | Wound Care Consultation ---
Wound Assessment Wound Assessment #1: Wound Number: 1 Wound Present on Admission: No New Wound: Yes Status Change of Wound: No Wound Location Body Site: perineal area Wound Type: chemical burn Victro Manuel Test: Does not Victor Manuel Wound Thickness: Full Thickness Percent of Wound [place]/Red: 100 Wound Drainage Amount: None Wound Drainage Odor: None/Absent Tissue Surrounding Wound: Intact Wound General Appearance: Reddened Wound Assessment #2: Wound Number: 2 Wound Present on Admission: Yes New Wound: No Status Change of Wound: No Wound Location Body Site Modif: left, lateral Wound Location Body Site: malleolus/ankle Wound Type: pressure ulcer Victor Manuel Test: Does not Victor Manuel Pressure Ulcer Stage: Deep Tissue Injury Wound Thickness: Full Thickness Wound Length: 1.5 Wound Width: 1.5 Wound Depth: utd Percent of Wound Purple/Maroon: 100 Wound Drainage Amount: None Wound Drainage Odor: None/Absent Tissue Surrounding Wound: Intact Wound General Appearance: Reddened - purple/maroon Wound Assessment #3: Wound Number: 3 Wound Present on Admission: Yes New Wound: No Status Change of Wound: No Wound Location Body Site Modif: left, medial Wound Location Body Site: malleolus/ankle Wound Type: pressure ulcer Victor Manuel Test: Does not Victor Manuel Pressure Ulcer Stage: Deep Tissue Injury Wound Thickness: Full Thickness Wound Length: 2.0 Wound Width: 2.0 Wound Depth: utd Percent of Wound Purple/Maroon: 100 Wound Drainage Amount: None Wound Drainage Odor: None/Absent Tissue Surrounding Wound: Erythemic Wound General Appearance: Reddened - purple/maroon Wound Assessment #4: Wound Number: 4 Wound Present on Admission: Yes New Wound: No Status Change of Wound: No Wound Location Body Site Modif: left, lateral Wound Location Body Site: foot Wound Type: pressure ulcer Victor Manuel Test: Does not Victor Manuel Pressure Ulcer Stage: Deep Tissue Injury Wound Thickness: Full Thickness Wound Length: 0.5 Wound Width: 0.5 Wound Depth: utd Percent of Wound Purple/Maroon: 100 Wound Drainage Amount: None Wound Drainage Odor: None/Absent Tissue Surrounding Wound: Intact Wound General Appearance: Reddened - purple/maroon Wound Assessment #5: Wound Number: 5 Wound Present on Admission: Yes New Wound: No Status Change of Wound: No Wound Location Body Site Modif: left, medial Wound Location Body Site: foot Wound Type: pressure ulcer Victor Manuel Test: Does not Victor Manuel Pressure Ulcer Stage: Unstageable Wound Thickness: Full Thickness Wound Length: 3.5 Wound Width: 3.0 Wound Depth: utd Percent of Wound Bed Yellow/Wh: 50 Percent of Wound Purple/Maroon: 50 Wound Drainage Amount: None Wound Drainage Odor: None/Absent Tissue Surrounding Wound: Erythemic Wound General Appearance: Reddened - maroon/yellow Wound Assessment #6: Wound Number: 6 Wound Present on Admission: Yes New Wound: No Status Change of Wound: No Wound Location Body Site Modif: left Wound Location Body Site: heel Wound Type: pressure ulcer Victor Manuel Test: Does not Victor Manuel Pressure Ulcer Stage: Deep Tissue Injury Wound Thickness: Full Thickness Wound Length: 3.0 Wound Width: 3.0 Wound Depth: utd Percent of Wound Purple/Maroon: 100 Wound Drainage Amount: None Wound Drainage Odor: None/Absent Tissue Surrounding Wound: Intact Wound General Appearance: Reddened - purple/maroon Wound Assessment #7: Wound Number: 7 Wound Present on Admission: Yes New Wound: No Status Change of Wound: No Wound Location Body Site Modif: right Wound Location Body Site: heel Wound Type: pressure ulcer Victor Manuel Test: Does not Victor Manuel Pressure Ulcer Stage: Unstageable - DTI revealed as unstageable pressure ulcer Wound Thickness: Full Thickness Wound Length: 5.0 Wound Width: 5.0 Wound Depth: utd Percent of Wound Bed Yellow/Wh: 50 Percent of Wound Black/Brown: 50 Wound Drainage Description: Serosanguineous Wound Drainage Amount: Scant Wound Drainage Odor: None/Absent Tissue Surrounding Wound: Macerated Wound General Appearance: Blackened - yellow/black Wound Assessment #8: Wound Number: 8 Wound Present on Admission: Yes New Wound: No Status Change of Wound: No Wound Location Body Site Modif: right, lateral Wound Location Body Site: malleolus/ankle Wound Type: pressure ulcer Victor Manuel Test: Does not Victor Manuel Pressure Ulcer Stage: Deep Tissue Injury Wound Thickness: Full Thickness Wound Length: 2.0 Wound Width: 2.0 Wound Depth: utd Percent of Wound Purple/Maroon: 100 Wound Drainage Amount: None Wound Drainage Odor: None/Absent Tissue Surrounding Wound: Erythemic Wound General Appearance: Reddened - purple/maroon Wound Assessment #9: Wound Number: 9 Wound Present on Admission: Yes New Wound: No Status Change of Wound: No Wound Location Body Site Modif: right, dorsal Wound Location Body Site: foot Wound Type: pressure ulcer Victor Manuel Test: Does not Victor Manuel Pressure Ulcer Stage: Deep Tissue Injury Wound Thickness: Full Thickness Wound Length: 4.0 Wound Width: 3.0 Wound Depth: utd Percent of Wound Purple/Maroon: 100 Wound Drainage Amount: None Wound Drainage Odor: None/Absent Tissue Surrounding Wound: Intact Wound General Appearance: Reddened - purple/maroon Wound Assessment #10: Wound Number: 10 Wound Present on Admission: Yes New Wound: No Status Change of Wound: No Wound Location Body Site Modif: right, medial Wound Location Body Site: malleolus/ankle Wound Type: pressure ulcer Victor Manuel Test: Does not Victor Manuel Pressure Ulcer Stage: Deep Tissue Injury Wound Thickness: Full Thickness Wound Length: 2.0 Wound Width: 2.0 Wound Depth: utd Percent of Wound Purple/Maroon: 100 Wound Drainage Amount: None Wound Drainage Odor: None/Absent Tissue Surrounding Wound: Intact Wound General Appearance: Reddened - purple/maroon Wound Assessment #11: Wound Number: 11 Wound Present on Admission: Yes New Wound: No Status Change of Wound: No Wound Location Body Site Modif: mid Wound Location Body Site: other - Sacrococcygeal Wound Type: pressure ulcer Victor Manuel Test: Does not Victor Manuel Pressure Ulcer Stage: Unstageable Wound Thickness: Full Thickness Wound Length: 8.0 Wound Width: 7.5 Wound Depth: UTD Percent of Wound Bed Yellow/Wh: 20 Percent of Wound Black/Brown: 60 Percent of Wound Purple/Maroon: 20 Wound Drainage Description: Serosanguineous Wound Drainage Amount: Moderate Wound Drainage Odor: None/Absent Tissue Surrounding Wound: Macerated Wound General Appearance: Blackened - yellow,black, Draining Wound Comment #1 Left lateral malleolus DTI pressure ulcer #2 Left medial malleolus DTI pressure ulcer #3 Left lateral foot DTI pressure ulcer #4 Left medial foot scattered DTI Revealed as unstageable pressure ulcer #5 Left heel DTI pressure ulcer #6 Right heel DTI Revealed as unstageable pressure ulcer. Will change wound care treatment to Therahoney Gel to wound bed daily. #7 Right lateral malleolus DTI Pressure ulcer #8 Right dorsal foot DTI pressure ulcer #9 Right medial malleolus SDTI pressure ulcer #10 Sacrococcygeal unstageable pressure ulcer. Slightly Bigger in size and no progress noted at this time. will adjust wound care treatment to Santyl ointment application daily on to wound bed. #11 Chemical burn on perineal area Reassessed this Pt today No deterioration noted in most sites.. Will cont the same wound care treatment and recommendation except Right heel and Sacrococcygeal area. Recommendation -Local wound care per protocol -Keep clean and dry -Optimize nutrition -Turn and reposition -Offload both heels -Heel protector on both heels -Low air loss P200 mattress -Assess and f/u accordingly for any changes GABI RAMIREZ RN Jun 28, 2017 20:32
--- NOTE | 2017-06-28 21:01 | Progress Note ---
DATE: 06/28/2017 SUBJECTIVE: The patient is, awake alert, afebrile, and hemodynamically stable. PHYSICAL EXAMINATION: VITAL SIGNS: Blood pressure 143/75, his pulse is 81, respirations 20, and temperature 97.7. HEENT: Eyes were normal. ENT, mucous membranes were moist and intact. NECK: Supple with no JVD without lymph nodes. LUNGS: Clear. HEART: Normal sounds with regular beat. ABDOMEN: Soft and nontender with normal bowel sounds. Gastrostomy site is clean. EXTREMITIES: Warm without cyanosis, clubbing, or edema. LABORATORY DATA: Hemoglobin 9.8, hematocrit 30.2 with MCV of 92, WBC of 5.5, and platelets 315,000. His BUN and creatinine is 40 and 1.5 respectively. Sodium is 145, potassium 4.4, chloride 105, and CO2 is 33. His calcium is 9.3 and phosphorus is 2.9 and magnesium is 1.9. IMPRESSION AND PLAN: 1. The patient was successfully extubated two days ago and tolerated the procedure well. 2. The patient developed congestive heart failure following extubation for which he received loop diuretic every 12 hours. He does not appear congested. He does not have peripheral edema or distended neck veins. Repeat laboratory test, chest x-ray, and BNP will be done in the morning. Martina Morales M.D. DR: HARDY JOB#: [id number] CC:
[2017-06-29] VITALS: BP 152/70
--- NOTE | 2017-06-29 02:14 | General Progress Note ---
Assessment/Plan Assessment/Plan 1. Anemia secondary to chronic disease. I worked up the patient about a week ago prior to admission in the patient with anemia of chronic disease. --> Hemoglobin goal >7 --> S/P PRBC, no complications. Continue to monitor hgb levels daily. --> Hemoglobin stable since transfusion. No further transfusions needed at the moment. 2. Coagulopathy, malnutrition and vitamin K deficiency. Closely monitor. 3. Leukocytosis, likely secondary to underlying infection, sepsis, and antibiotics. --> has resolved, wbc count wnl --> Remains on antibiotics. 4. Acute hypoxemia, requiring intubation. 5. Lactic acidosis. 6. Acute kidney injury. 7. Dysphagia with gastrostomy tube. 8. Cerebrovascular accident with right-sided hemiplegia. 9. Acute toxic metabolic encephalopathy. 10. Hypothyroidism. Subjective Date patient seen: Jun 28, 2017 Constitutional: Denies: no symptoms, chills, diaphoresis, fever, malaise, weakness, other HEENT: Denies: no symptoms, eye pain, blurred vision, tearing, double vision, ear pain, ear discharge, nose pain, nose congestion, throat pain, throat swelling, mouth pain, mouth swelling, other Cardiovascular: Denies: no symptoms, chest pain, edema, irregular heart rate, lightheadedness, palpitations, syncope, other Respiratory: Denies: no symptoms, cough, orthopnea, shortness of breath, SOB with excertion, SOB at rest, sputum, stridor, wheezing, other Gastrointestinal/Abdominal: Denies: no symptoms, abdomen distended, abdominal pain, black stools, tarry stools, blood in stool, constipated, diarrhea, difficulty swallowing, nausea, poor appetite, poor fluid intake, rectal bleeding , vomiting, other Genitourinary: Denies: no symptoms, burning, discharge, frequency, flank pain, hematuria, incontinence, pain, urgency, other Allergies: Coded Allergies: No Known Allergies (Unverified , 05/11/17) Subjective Extubated. No major events. Hemodynamically stable. Objective Last 24 Hour Vital Signs Date Time Temp Pulse Resp B/P (MAP) Pulse Ox O2 Delivery O2 Flow Rate FiO2 06/29/17 00:00 97.7 98 20 152/70 96 06/28/17 23:56 152/70 06/28/17 21:29 78 143/75 06/28/17 20:25 Nasal Cannula 3.0 32 06/28/17 20:24 96 Nasal Cannula 3.0 32 06/28/17 20:24 78 20 Nasal Cannula 3.0 32 06/28/17 20:00 97.9 105 22 150/74 97 06/28/17 18:07 143/75 06/28/17 12:27 143/75 06/28/17 10:27 81 150/76 06/28/17 10:25 81 150/76 06/28/17 09:27 Nasal Cannula 3.0 32 06/28/17 09:26 97 Nasal Cannula 3.0 32 06/28/17 07:20 81 20 Nasal Cannula 3.0 32 06/28/17 06:28 150/76 06/28/17 04:00 Nasal Cannula 3.0 06/28/17 04:00 97.7 76 20 150/76 97 Intake and Output 06/28/17 06/29/17 19:00 07:00 Intake Total 760 ml Balance 760 ml Free Water 100 ml Tube Feeding 660 ml Laboratory Tests 06/28/17 05:40: White Blood Count 5.5, Red Blood Count 3.32L, Hemoglobin 9.8L, Hematocrit 30.7L , Mean Corpuscular Volume 92, Mean Corpuscular Hemoglobin 29.6, Mean Corpuscular Hemoglobin Concent 32.0, Red Cell Distribution Width 16.3H, Platelet Count 315, Mean Platelet Volume 6.4L, Neutrophils (%) (Auto) 73.0, Lymphocytes (%) (Auto) 18.2L, Monocytes (%) (Auto) 4.9, Eosinophils (%) (Auto) 3.3H, Basophils (%) (Auto) 0.6, Sodium Level 145, Potassium Level 4.4, Chloride Level 105, Carbon Dioxide Level 33H, Anion Gap 7, Blood Urea Nitrogen 40H, Creatinine 1.5H, Estimat Glomerular Filtration Rate 47.1, Glucose Level 256H, Calcium Level 9.0, Phosphorus Level 2.9, Magnesium Level 1.9, Total Bilirubin 0.2, Aspartate Amino Transf (AST/SGOT) 30, Alanine Aminotransferase (ALT/SGPT) 32, Alkaline Phosphatase 119H, Total Protein 6.9, Albumin 1.7L, Globulin 5.2, Albumin/Globulin Ratio 0.3L Height (Feet): 5 Height (Inches): 9.00 Weight (Pounds): 190 General Appearance: no apparent distress EENT: normal ENT inspection Cardiovascular: regular rhythm Dejan Copeland Jun 29, 2017 02:14
--- NOTE | 2017-06-29 03:45 | Progress Note ---
DATE: 06/28/2017 CARDIOLOGY PROGRESS NOTE SUBJECTIVE: Case was reviewed and patient examined with Dr. Morales present. The patient has some congestion. His communication skills are apparently worse than baseline per primary care physician. OBJECTIVE: VITAL SIGNS: Blood pressure 143/75, heart rate 81, respiratory rate 20, and he is afebrile. LUNGS: Coarse breath sounds. Scattered rhonchi. Few rales. HEART: Regular rhythm and rate. Normal S1, S2. ABDOMEN: Soft. EXTREMITIES: Trace edema. LABORATORY DATA: White count 5.5, hemoglobin 9.8. Potassium 4.4, magnesium 1.9, BUN 40, and creatinine 1.5. Albumin 1.7. IMPRESSION: 1. Respiratory failure, status post extubation. 2. Healthcare-acquired pneumonia. 3. Metabolic and toxic encephalopathy. 4. Acute on chronic renal failure. 5. Acute on chronic diastolic congestive heart failure. 6. Severe protein-calorie malnutrition. 7. Anemia, multifactorial. PLAN: 1. Antimicrobials. 2. Respiratory hygiene. 3. Monitor acid-base parameters. 4. DVT prophylaxis. 5. Continue diuresis. 6. We will follow. Ulisses Gaston M.D. DR: LOIDA JOB#: [id number] CC:
[2017-06-29 04:00] VITALS: BP 123/94
[2017-06-29] MEDS: HydrALAZINE 10mg Tab GT SCH ×3 (06:19→17:59)
[2017-06-29] MEDS: Cefepime HCl 2 GM in D5W 55 ML IVPB SCH (06:19)
[2017-06-29] MEDS: NovoLOG Insulin Flexpen SUBQ SCH ×3 (06:22→18:00)
[2017-06-29 07:49] LABS: BASOPHILS % (AUTO) 0.6 % (0.0-2.0); EOSINOPHILS % (AUTO) 3.1 % (0.0-3.0); HEMATOCRIT 30.2 % (42.0-52.0); HEMOGLOBIN 9.8 G/DL (14.2-18.0); LYMPHOCYTES % (AUTO) 14.7 % (20.0-45.0); MEAN CORPUSCULAR VOLUME 93 FL (80-99); MONOCYTES % (AUTO) 5.3 % (1.0-10.0); NEUTROPHILS % (AUTO) 76.4 % (45.0-75.0); PLATELET COUNT 370 K/UL (150-450); RED BLOOD COUNT 3.23 M/UL (4.70-6.10); RED CELL DISTRIBUTION WIDTH 16.9 % (11.6-14.8)
[2017-06-29 08:00] VITALS: BP 132/80
[2017-06-29 08:09] LABS: ANION GAP 7 mmol/L (5-15); BLOOD UREA NITROGEN 41 mg/dL (7-18); CALCIUM 9.3 MG/DL (8.5-10.1); CARBON DIOXIDE 34 MMOL/L (21-32); CHLORIDE 106 MMOL/L (98-107); CREATININE 1.7 MG/DL (0.55-1.30); POTASSIUM 4.7 MMOL/L (3.5-5.1); SODIUM 147 MMOL/L (136-145)
[2017-06-29] MEDS: Bumetanide 0.25mg/ml 4ml IV SCH ×2 (08:20→21:10)
[2017-06-29] MEDS: Aspirin EC 81mg tab ORAL SCH (09:39)
[2017-06-29] MEDS: Metoprolol Tartrate 50mg tab GT SCH ×2 (09:40→21:09)
[2017-06-29] MEDS: Heparin 5000 units/ml inj SUBQ SCH ×2 (09:50→21:11)
[2017-06-29] MEDS: Albuterol/Ipratropium 3ml neb HHN PRN ×2 (11:25→21:51)
[2017-06-29 12:00] VITALS: BP 145/70
--- NOTE | 2017-06-29 15:52 | Nephrology Progress Note ---
Assessment/Plan Problem List: (1) Acute renal failure (2) Respiratory failure requiring intubation (3) Urosepsis (4) Anemia Assessment: worsening (5) Hypoalbuminemia Assessment BOOGIE (acute kidney injury), Cr gradually rising again H&H lower Respiratory failure requiring intubation Respiratory failure with hypoxia Aspiration pneumonia, Urosepsis Anemia ACS (acute coronary syndrome), Non St Elevation [place] CHF (congestive heart failure) Acute encephalopathy GT feeding Plan plan: transfused Hydrate- avoid Nephrotoxics monitor renal parameters Keep BP and BS in check Optimize pulmonary and cardiac support Subjective ROS Limited/Unobtainable: No Constitutional: Reports: malaise, weakness Objective Objective Last 24 Hour Vital Signs Date Time Temp Pulse Resp B/P (MAP) Pulse Ox O2 Delivery O2 Flow Rate FiO2 06/29/17 12:22 145/70 06/29/17 12:00 98.6 99 32 145/70 98 Nasal Cannula 2.0 06/29/17 11:33 61 22 96 Nasal Cannula 2.0 28 06/29/17 11:25 56 22 92 Nasal Cannula 2.0 28 06/29/17 09:40 116 132/80 06/29/17 09:40 116 132/80 06/29/17 08:00 98.6 116 36 132/80 96 Nasal Cannula 3.0 06/29/17 07:22 97 Nasal Cannula 3.0 32 06/29/17 07:22 Nasal Cannula 3.0 32 06/29/17 07:22 85 20 Nasal Cannula 3.0 32 06/29/17 06:19 123/94 06/29/17 04:00 Nasal Cannula 3.0 06/29/17 04:00 98.2 99 20 123/94 100 06/29/17 00:00 Nasal Cannula 3.0 06/29/17 00:00 97.7 98 20 152/70 96 06/28/17 23:56 152/70 06/28/17 21:29 78 143/75 06/28/17 20:25 Nasal Cannula 3.0 32 06/28/17 20:24 96 Nasal Cannula 3.0 32 06/28/17 20:24 78 20 Nasal Cannula 3.0 32 06/28/17 20:00 97.9 105 22 150/74 97 06/28/17 20:00 Nasal Cannula 3.0 06/28/17 18:07 143/75 Intake and Output 06/28/17 06/29/17 19:00 07:00 Intake Total 820 ml 1040 ml Output Total 1800 ml Balance 820 ml -760 ml Free Water 100 ml 150 ml IV Total 110 ml Tube Feeding 720 ml 780 ml Output Urine Total 1800 ml Laboratory Tests 06/29/17 06:00: White Blood Count 6.0, Red Blood Count 3.23L, Hemoglobin 9.8L, Hematocrit 30.2L , Mean Corpuscular Volume 93, Mean Corpuscular Hemoglobin 30.2, Mean Corpuscular Hemoglobin Concent 32.4, Red Cell Distribution Width 16.9H, Platelet Count 370, Mean Platelet Volume 6.2L, Neutrophils (%) (Auto) 76.4H, Lymphocytes (%) (Auto) 14.7L, Monocytes (%) (Auto) 5.3, Eosinophils (%) (Auto) 3.1H, Basophils (%) (Auto) 0.6, Sodium Level 147H, Potassium Level 4.7, Chloride Level 106, Carbon Dioxide Level 34H, Anion Gap 7, Blood Urea Nitrogen 41H, Creatinine 1.7H, Estimat Glomerular Filtration Rate 40.8, Glucose Level 326H, Calcium Level 9.3, Pro-B-Type Natriuretic Peptide 4291H Height (Feet): 5 Height (Inches): 9.00 Weight (Pounds): 189 General Appearance: no apparent distress Cardiovascular: normal rate Respiratory/Chest: decreased breath sounds Abdomen: distended Objective no other changes GARCÍA READ Jun 29, 2017 15:52
--- NOTE | 2017-06-29 16:00 | Consultation ---
DATE OF CONSULTATION: 06/29/2017 NEUROLOGICAL CONSULTATION REQUESTING PHYSICIAN: Martina Morales M.D. HISTORY OF PRESENT ILLNESS: This 62-year-old man seen in neurological consultation to evaluate persistent absence of verbal responses. Issue of aphasia versus dysphonia was raised. The patient's initial admission to this hospital in April of last year. During that admission to this hospital in April of last year, there was indication that the patient then admitted with acute onset of altered mental status, but "normal with verbal and somewhat confused". Due to the acuteness of for changes in mental status, he had a CT scan of the brain initially and then MRI of the brain, which revealed only chronic and age-related changes. There is old right frontal infarct and bilateral basal ganglia infarcts with periventricular deep white matter changes. Since then until present, he remained nonverbal, now he has been readmitted in presence of respiratory failure. Apparently prior to admission, he developed signs of sepsis, initially treated with antibiotics at local hospitals, transit back to nursing facility, but developed tachycardia, fever and was readmitted to [facility] presenting with acute respiratory failure, required intubation. He was placed on mechanical ventilation, starting again intravenous fluids and antibiotics. Admitted initially to intensive care unit. The patient did respond to treatment. Subsequently, he was extubated. Still remaining intermittently drowsy, but consistently nonverbal. His latest laboratory work included presence of anemia, hemoglobin 9.8 and hematocrit 30.2. Mild coagulopathy, INR 1.2. Chemistry panel with elevated BUN of 41 and creatinine 1.7. Sodium 147. BNP of 4291 and low albumin 1.7. Normal TSH, B12 and folate. Initially lactic acid of 2.50. [place] that anemia is results of chronic illness. Coagulopathy result of malnutrition and vitamin K deficiency. PAST MEDICAL HISTORY: The patient has a history of hypertension, chronic renal insufficiency, diabetes type 2, bipolar disorder, schizophrenia, gastroesophageal reflux disease, history of cardiac arrhythmia, history of advanced dementia, coronary artery disease, bronchial asthma, osteoporosis, hyperlipidemia, had a old right middle cerebral artery distribution stroke with left hemiplegia, and he is status post tracheostomy in the past. MEDICATIONS: Treatment prior to admission included amlodipine, aspirin, insulin, levothyroxine, lisinopril, metoprolol, nitroglycerin, ranitidine, temazepam and zinc. ALLERGIES: None reported. SOCIAL HISTORY: Lives in nursing facility. FAMILY HISTORY: Unavailable. REVIEW OF SYMPTOMS: Unable to obtain due to the patient's status. PHYSICAL EXAMINATION: GENERAL: Well-developed, cachectic ill-appearing man, not in acute distress, intermittently with a dry cough. VITAL SIGNS: Stable, blood pressure 132/80, heart rate 116, and temperature 98.6 degrees. HEENT: Head, normocephalic. There is no evidence of injuries. Eyes, ears, and throat are clear. NECK: Rigid in all directions. MUSCULOSKELETAL: There is diffuse muscle wasting, cachexia, and contracted both feet. Peripheral pulses 1+ symmetric. Venous stasis of both lower extremities. MENTAL STATUS: The patient is drowsy, but arousable. On vigorous stimulation, he briefly open eyes. He has a poor eye contact. He mumbled a few words without being incoherent. He did not follow any simple commands. CRANIAL NERVE II: Pupils both responding to light and accommodation. Extraocular movement full range. CRANIAL NERVE V: Normal corneal responses. CRANIAL NERVE VII: Mild facial asymmetry. CRANIAL NERVE VIII: Grossly normal hearing. CRANIAL NERVES IX THROUGH XII: Reduced gag response. The patient now on G-tube feeding. MOTOR EXAMINATION: Flaccid both upper extremity with minor movement of right hand noted. There is no spontaneous movement in both lower extremities, but there is significant rigidity both lower extremities, extended both ankles. Diffuse muscle wasting, predominantly both lower extremities. Deep tendon reflexes depressed bilaterally including biceps, triceps, knee and ankle jerks. Plantar responses are mute. SENSORY EXAM: No response to pin stimulation. IMPRESSION: 1. Status post multiple lacunar strokes with a quadriplegia, expressive aphasia, and dementia. 2. Failure to thrive. 3. Renal insufficiency. 4. Respiratory insufficiency. 5. Hypertension. 6. Hyperlipidemia. 7. Diabetes type 2. DISCUSSION: The patient initial evaluation in April of last year documented presence of new changes in mental status and inability to speak with verbal unresponsiveness. This remain until present time, more pronounced due to underlying infection and metabolic derangement. Radiological evidence of old lacunar strokes, currently with severe quadriparesis, which probably contributed by polyneuropathies of chronic illness. The patient to continue with supportive care, G-tube feeding, respiratory support and palliative treatment. No additional neurological diagnostic studies will be necessary. Code status to be discussed with family. Thank you for allowing me to see this interesting patient in neurological consultation. Zohaib April Mejia DR: ASHLEY JOB#: [id number] CC:
[2017-06-29 16:03] VITALS: BP 137/89
--- NOTE | 2017-06-29 16:59 | Infectious Diseases Prog Note ---
Assessment/Plan Assessment/Plan Sepsis 2ry to HCAP, improving CXR 06/26: Probable mild CHF. Please correlate clinically -CXR 06/22: Lungs and pleural spaces are clear -CXR: There is infiltrate in the left infrahilar region. There is some atelectasis at the right lung base. There is also retrocardiac consolidation -sp cx: +3 MDR PSA (S. Cefepime, Gentamicin/Amikacin) -u./a WBC 5-10, nit neg, leuk est +1, ucx 10-20K C. albicans (colonzier) -rectal wound cx: ESBL E.coli, PsA (colonizers)- no signs of infection 07/22 CoNS bacteremia- suspect contaminant 06/20 +07/22, 06/21 Neg x4 Fever-resolved leukocytosis-resolved Lactic acidosis- resolved Recent admission at OSH for sepsis, s/p IV abx (~1 wk [employer]) Acute hypoxic resp failure s/p intubation 06/20- s/p extubation 06/25 BOOGIE, improving Recent gastritis (dx by EGD) Cdiff neg 06/25 Hx of encephalopathy -05/22 CT head: No evidence of acute intracranial hemorrhage, mass effect or cortical edema. MRI may be obtained for more sensitive evaluation as clinically indicated. Stable chronic infarct in the right frontal lobe. Cerebral and cerebellar atrophy greater than expected for age. Clinical correlation recommended. Mild periventricular hypoattenuation suggestive of chronic ischemic microvascular changes. -previous admission:nical correlation recommended. Mild periventricular hypoattenuation suggestive of chronic ischemic microvascular changes. Small area of right frontal encephalomalacia suggestive of old infarct. -UDS neg -TSH normal -Neg: HIV ag/ab, RPR, CrAg serum, FTA-ab -Brain MRI: Chronic and age-related changes. Old right frontal infarct. Negative for acute intracranial bleed, mass effect, or acute infarct hx of VRE and MRSA colonization HTN, CKD, DM2, bipolar dz/schizophrenia, GERD, cardiac arrhythmia, Dementia, CAD with prior [place], MS, osteoporosis, asthma, VIt D def, hypothyroidism, HLD, dysphagia s/p GT, R MCA CVA with left hemiplegia, s/p trach Plan: -Continue Cefepime d# 7/10 -06/25 SP IV vancomycin #5, Amikacin #5 -1/6 SP Meropenem #3 -1/4 SP Amikacin x1 -Monitor CBC/BMP, temperatures -aspiration precautions - wound care Subjective Allergies: Coded Allergies: No Known Allergies (Unverified , 05/11/17) Subjective afebrile no leukocytosis on 2L NC Objective Vital Signs Last 24 Hour Vital Signs Date Time Temp Pulse Resp B/P (MAP) Pulse Ox O2 Delivery O2 Flow Rate FiO2 06/29/17 16:03 98.8 110 20 137/89 93 Nasal Cannula 2.0 06/29/17 12:22 145/70 06/29/17 12:00 98.6 99 32 145/70 98 Nasal Cannula 2.0 06/29/17 11:33 61 22 96 Nasal Cannula 2.0 28 06/29/17 11:25 56 22 92 Nasal Cannula 2.0 28 06/29/17 09:40 116 132/80 06/29/17 09:40 116 132/80 06/29/17 08:00 98.6 116 36 132/80 96 Nasal Cannula 3.0 06/29/17 07:22 97 Nasal Cannula 3.0 32 06/29/17 07:22 Nasal Cannula 3.0 32 06/29/17 07:22 85 20 Nasal Cannula 3.0 32 06/29/17 06:19 123/94 06/29/17 04:00 Nasal Cannula 3.0 06/29/17 04:00 98.2 99 20 123/94 100 06/29/17 00:00 Nasal Cannula 3.0 06/29/17 00:00 97.7 98 20 152/70 96 06/28/17 23:56 152/70 06/28/17 21:29 78 143/75 06/28/17 20:25 Nasal Cannula 3.0 32 06/28/17 20:24 96 Nasal Cannula 3.0 32 06/28/17 20:24 78 20 Nasal Cannula 3.0 32 06/28/17 20:00 97.9 105 22 150/74 97 06/28/17 20:00 Nasal Cannula 3.0 06/28/17 18:07 143/75 Height (Feet): 5 Height (Inches): 9.00 Weight (Pounds): 189 Objective Status: sedated Condition: critical HEENT: atraumatic Lungs: clear Heart: HR/BP stable Abdomen: non-tender, active bowel sounds Extremities: no C/C/E Decubiti: location Laboratory Tests Test 06/29/17 06:00 White Blood Count 6.0 K/UL (4.8-10.8) Red Blood Count 3.23 M/UL (4.70-6.10) L Hemoglobin 9.8 G/DL (14.2-18.0) L Hematocrit 30.2 % (42.0-52.0) L Mean Corpuscular Volume 93 FL (80-99) Mean Corpuscular Hemoglobin 30.2 PG (27.0-31.0) Mean Corpuscular Hemoglobin Concent 32.4 G/DL (32.0-36.0) Red Cell Distribution Width 16.9 % (11.6-14.8) H Platelet Count 370 K/UL (150-450) Mean Platelet Volume 6.2 FL (6.5-10.1) L Neutrophils (%) (Auto) 76.4 % (45.0-75.0) H Lymphocytes (%) (Auto) 14.7 % (20.0-45.0) L Monocytes (%) (Auto) 5.3 % (1.0-10.0) Eosinophils (%) (Auto) 3.1 % (0.0-3.0) H Basophils (%) (Auto) 0.6 % (0.0-2.0) Sodium Level 147 MMOL/L (136-145) H Potassium Level 4.7 MMOL/L (3.5-5.1) Chloride Level 106 MMOL/L (98-107) Carbon Dioxide Level 34 MMOL/L (21-32) H Anion Gap 7 mmol/L (5-15) Blood Urea Nitrogen 41 mg/dL (7-18) H Creatinine 1.7 MG/DL (0.55-1.30) H Estimat Glomerular Filtration Rate 40.8 mL/min (>60) Glucose Level 326 MG/DL (74-106) H Calcium Level 9.3 MG/DL (8.5-10.1) Pro-B-Type Natriuretic Peptide 4291 pg/mL (0-125) H Current Medications Medications (Trade) Dose Ordered Sig/Willem Route PRN Reason Start Time Stop Time Status Last Admin Dose Admin Acetaminophen (Tylenol) 650 mg DAILY PRN ORAL Temp > 100.5 06/26/17 21:00 07/26/17 20:59 Acetaminophen (Tylenol) 650 mg Q6H PRN ORAL MILD PAIN (1-4). NTE 3GM/DAY 06/26/17 21:00 07/26/17 20:59 Acetaminophen (Tylenol) 1,000 mg Q6H PRN ORAL MODERATE PAIN (5-7) 06/26/17 21:00 07/26/17 20:59 Albuterol/ Ipratropium (Albuterol/ Ipratropium) 3 ml Q4H PRN HHN Shortness of Breath 06/26/17 21:00 07/01/17 20:59 06/29/17 11:25 Amlodipine Besylate (Norvasc) 10 mg DAILY GT 06/27/17 09:00 07/21/17 08:59 06/29/17 09:40 Aspirin (Ecotrin) 81 mg DAILY ORAL 06/27/17 09:00 07/21/17 08:59 06/29/17 09:39 Bisacodyl (Dulcolax) 10 mg DAILYPRN PRN RECTAL constipationIF MOM INEFFECTIVE 06/26/17 21:00 07/26/17 20:59 Bumetanide (Bumex) 1 mg Q12HR IV 06/27/17 11:30 07/27/17 11:29 06/29/17 08:20 Cefepime HCl 2 gm/ Dextrose 55 ml @ 110 mls/hr Q12H IVPB 06/27/17 06:00 06/30/17 17:59 06/29/17 06:19 Clonidine HCl (Catapres Tab) 0.1 mg Q4H PRN GT bp of 160 syst and above 06/26/17 21:00 07/21/17 16:59 Collagenase (Santyl) 1 applic DAILY TOPIC 06/29/17 09:00 07/29/17 08:59 06/29/17 09:41 Dextrose (Dextrose 50%) STAT PRN IV Hypoglycemia 06/26/17 21:00 07/26/17 20:59 Famotidine (Pepcid) 20 mg DAILY ORAL 06/27/17 09:00 07/22/17 08:59 06/29/17 09:40 Heparin Sodium (Porcine) (Heparin 5000 units/ml) 5,000 units EVERY 12 HOURS SUBQ 06/26/17 21:00 07/21/17 08:59 06/29/17 09:50 Hydralazine HCl (Apresoline) 10 mg Q6HR GT 06/27/17 00:00 07/21/17 17:59 06/29/17 12:22 Insulin Aspart (NovoLOG) EVERY 6 HOURS SUBQ 06/27/17 00:00 07/21/17 06:29 06/29/17 12:19 Levothyroxine Sodium (Synthroid) 50 mcg ACBREAKFAST GT 06/27/17 06:30 07/21/17 06:29 06/29/17 06:19 Metoprolol Tartrate (Lopressor) 50 mg EVERY 12 HOURS GT 06/26/17 21:00 07/21/17 08:59 06/29/17 09:40 Nitroglycerin (Ntg) 0.4 mg Q5M PRN SL CHEST PAIN 06/26/17 21:00 07/21/17 20:59 Potassium Chloride (K-Dur) 40 meq DAILY GT 06/28/17 09:00 07/28/17 08:59 06/29/17 09:39 Hellen Hutchison M.D. Jun 29, 2017 16:59
--- NOTE | 2017-06-29 17:06 | Pulmonology Progress Note ---
Assessment/Plan Problems: (1) CHF (congestive heart failure) (2) Aspiration pneumonia (3) History of CVA (cerebrovascular accident) (4) Feeding by G-tube Assessment/Plan f/u cxr and bnp in am diuretics as needed check electrolytes coninue abx, on Cefepime dvt prophylaxis all note reviewed, All medications and treatment were reviewed.r Subjective ROS Limited/Unobtainable: No Interval Events: comfortable Constitutional: Reports: no symptoms Respiratory: Reports: no symptoms Allergies: Coded Allergies: No Known Allergies (Unverified , 05/11/17) Objective Last 24 Hour Vital Signs Date Time Temp Pulse Resp B/P (MAP) Pulse Ox O2 Delivery O2 Flow Rate FiO2 06/29/17 16:03 98.8 110 20 137/89 93 Nasal Cannula 2.0 06/29/17 12:22 145/70 06/29/17 12:00 98.6 99 32 145/70 98 Nasal Cannula 2.0 06/29/17 11:33 61 22 96 Nasal Cannula 2.0 28 06/29/17 11:25 56 22 92 Nasal Cannula 2.0 28 06/29/17 09:40 116 132/80 06/29/17 09:40 116 132/80 06/29/17 08:00 98.6 116 36 132/80 96 Nasal Cannula 3.0 06/29/17 07:22 97 Nasal Cannula 3.0 32 06/29/17 07:22 Nasal Cannula 3.0 32 06/29/17 07:22 85 20 Nasal Cannula 3.0 32 06/29/17 06:19 123/94 06/29/17 04:00 Nasal Cannula 3.0 06/29/17 04:00 98.2 99 20 123/94 100 06/29/17 00:00 Nasal Cannula 3.0 06/29/17 00:00 97.7 98 20 152/70 96 06/28/17 23:56 152/70 06/28/17 21:29 78 143/75 06/28/17 20:25 Nasal Cannula 3.0 32 06/28/17 20:24 96 Nasal Cannula 3.0 32 06/28/17 20:24 78 20 Nasal Cannula 3.0 32 06/28/17 20:00 97.9 105 22 150/74 97 06/28/17 20:00 Nasal Cannula 3.0 06/28/17 18:07 143/75 Intake and Output 06/28/17 06/29/17 19:00 07:00 Intake Total 820 ml 1040 ml Output Total 1800 ml Balance 820 ml -760 ml Free Water 100 ml 150 ml IV Total 110 ml Tube Feeding 720 ml 780 ml Output Urine Total 1800 ml Objective General Appearance: no acute distress HEENT: normocephalic, atraumatic Respiratory/Chest: lungs clear, no respiratory distress, no accessory muscle use Cardiovascular: normal rate, no JVD, CL-femoral intact Abdomen: normal bowel sounds, soft, non tender Extremities: no edema Neurologic/Psychiatric: alert, responsive Musculoskeletal: normal muscle bulk Laboratory Tests 06/29/17 06:00: White Blood Count 6.0, Red Blood Count 3.23L, Hemoglobin 9.8L, Hematocrit 30.2L , Mean Corpuscular Volume 93, Mean Corpuscular Hemoglobin 30.2, Mean Corpuscular Hemoglobin Concent 32.4, Red Cell Distribution Width 16.9H, Platelet Count 370, Mean Platelet Volume 6.2L, Neutrophils (%) (Auto) 76.4H, Lymphocytes (%) (Auto) 14.7L, Monocytes (%) (Auto) 5.3, Eosinophils (%) (Auto) 3.1H, Basophils (%) (Auto) 0.6, Sodium Level 147H, Potassium Level 4.7, Chloride Level 106, Carbon Dioxide Level 34H, Anion Gap 7, Blood Urea Nitrogen 41H, Creatinine 1.7H, Estimat Glomerular Filtration Rate 40.8, Glucose Level 326H, Calcium Level 9.3, Pro-B-Type Natriuretic Peptide 4291H Current Medications Medications (Trade) Dose Ordered Sig/Willem Route PRN Reason Start Time Stop Time Status Last Admin Dose Admin Acetaminophen (Tylenol) 650 mg DAILY PRN ORAL Temp > 100.5 06/26/17 21:00 07/26/17 20:59 Acetaminophen (Tylenol) 650 mg Q6H PRN ORAL MILD PAIN (1-4). NTE 3GM/DAY 06/26/17 21:00 07/26/17 20:59 Acetaminophen (Tylenol) 1,000 mg Q6H PRN ORAL MODERATE PAIN (5-7) 06/26/17 21:00 07/26/17 20:59 Albuterol/ Ipratropium (Albuterol/ Ipratropium) 3 ml Q4H PRN HHN Shortness of Breath 06/26/17 21:00 07/01/17 20:59 06/29/17 11:25 Amlodipine Besylate (Norvasc) 10 mg DAILY GT 06/27/17 09:00 07/21/17 08:59 06/29/17 09:40 Aspirin (Ecotrin) 81 mg DAILY ORAL 06/27/17 09:00 07/21/17 08:59 06/29/17 09:39 Bisacodyl (Dulcolax) 10 mg DAILYPRN PRN RECTAL constipationIF MOM INEFFECTIVE 06/26/17 21:00 07/26/17 20:59 Bumetanide (Bumex) 1 mg Q12HR IV 06/27/17 11:30 07/27/17 11:29 06/29/17 08:20 Cefepime HCl 2 gm/ Dextrose 55 ml @ 110 mls/hr Q12H IVPB 06/27/17 06:00 06/30/17 17:59 06/29/17 06:19 Clonidine HCl (Catapres Tab) 0.1 mg Q4H PRN GT bp of 160 syst and above 06/26/17 21:00 07/21/17 16:59 Collagenase (Santyl) 1 applic DAILY TOPIC 06/29/17 09:00 07/29/17 08:59 06/29/17 09:41 Dextrose (Dextrose 50%) STAT PRN IV Hypoglycemia 06/26/17 21:00 07/26/17 20:59 Famotidine (Pepcid) 20 mg DAILY ORAL 06/27/17 09:00 07/22/17 08:59 06/29/17 09:40 Heparin Sodium (Porcine) (Heparin 5000 units/ml) 5,000 units EVERY 12 HOURS SUBQ 06/26/17 21:00 07/21/17 08:59 06/29/17 09:50 Hydralazine HCl (Apresoline) 10 mg Q6HR GT 06/27/17 00:00 07/21/17 17:59 06/29/17 12:22 Insulin Aspart (NovoLOG) EVERY 6 HOURS SUBQ 06/27/17 00:00 07/21/17 06:29 06/29/17 12:19 Levothyroxine Sodium (Synthroid) 50 mcg ACBREAKFAST GT 06/27/17 06:30 07/21/17 06:29 06/29/17 06:19 Metoprolol Tartrate (Lopressor) 50 mg EVERY 12 HOURS GT 06/26/17 21:00 07/21/17 08:59 06/29/17 09:40 Nitroglycerin (Ntg) 0.4 mg Q5M PRN SL CHEST PAIN 06/26/17 21:00 07/21/17 20:59 Potassium Chloride (K-Dur) 40 meq DAILY GT 06/28/17 09:00 07/28/17 08:59 06/29/17 09:39 JESSE ZAVALA Jun 29, 2017 17:06
--- NOTE | 2017-06-29 18:03 | Diagnostic Imaging Report ---
Indication: Cough Technique: XRAY Chest 1v Comparison: 06/26/2017 Findings: Heart size and mediastinal contours are stable. There is increasing hazy opacity of the left lung with suggestion of perihilar consolidation with air bronchograms. There is likely left layering pleural effusion. Right lung appears better aerated on today's exam. Impression: Development of asymmetric haziness of the left lung with suggestion of retrocardiac consolidation with air bronchograms. Right lung appears better aerated on today's exam.
[2017-06-29 20:00] VITALS: BP 141/71
--- NOTE | 2017-06-29 23:19 | General Progress Note ---
Assessment/Plan Status: unchanged Assessment/Plan 1. Anemia secondary to chronic disease. I worked up the patient about a week ago prior to admission in the patient with anemia of chronic disease. --> Hemoglobin goal >7 --> S/P PRBC, no complications. Continue to monitor hgb levels daily. --> Hemoglobin stable since transfusion. No further transfusions needed at the moment. 2. Coagulopathy, malnutrition and vitamin K deficiency. --> Closely monitor. On anticoagulation as needed. 3. Leukocytosis, likely secondary to underlying infection, sepsis, and antibiotics. --> has resolved, wbc count wnl --> Remains on antibiotics. 4. Acute hypoxemia, requiring intubation. 5. Lactic acidosis. 6. Acute kidney injury. 7. Dysphagia with gastrostomy tube. 8. Cerebrovascular accident with right-sided hemiplegia. 9. Acute toxic metabolic encephalopathy. 10. Hypothyroidism. Subjective Date patient seen: Jun 29, 2017 Constitutional: Denies: no symptoms, chills, diaphoresis, fever, malaise, weakness, other HEENT: Denies: no symptoms, eye pain, blurred vision, tearing, double vision, ear pain, ear discharge, nose pain, nose congestion, throat pain, throat swelling, mouth pain, mouth swelling, other Cardiovascular: Denies: no symptoms, chest pain, edema, irregular heart rate, lightheadedness, palpitations, syncope, other Respiratory: Denies: no symptoms, cough, orthopnea, shortness of breath, SOB with excertion, SOB at rest, sputum, stridor, wheezing, other Gastrointestinal/Abdominal: Denies: no symptoms, abdomen distended, abdominal pain, black stools, tarry stools, blood in stool, constipated, diarrhea, difficulty swallowing, nausea, poor appetite, poor fluid intake, rectal bleeding , vomiting, other Genitourinary: Denies: no symptoms, burning, discharge, frequency, flank pain, hematuria, incontinence, pain, urgency, other Neurologic/Psychiatric: Denies: no symptoms, anxiety, depressed, emotional problems, headache, numbness, paresthesia, pre-existing deficit, seizure, tingling, tremors, weakness, other Allergies: Coded Allergies: No Known Allergies (Unverified , 05/11/17) Subjective No new events overnight. No f/c. Anemia stable. On breathing treatment. Objective Last 24 Hour Vital Signs Date Time Temp Pulse Resp B/P (MAP) Pulse Ox O2 Delivery O2 Flow Rate FiO2 06/29/17 22:23 101 22 89 Non-Rebreather 15.0 100 06/29/17 22:08 98.2 06/29/17 22:01 96 22 88 Non-Rebreather 15.0 100 06/29/17 21:09 118 141/71 06/29/17 20:00 100.6 118 22 141/71 91 06/29/17 19:27 89 18 Nasal Cannula 3.0 32 06/29/17 19:27 Nasal Cannula 3.0 32 06/29/17 19:27 92 Nasal Cannula 3.0 32 06/29/17 17:59 137/89 06/29/17 16:03 98.8 110 20 137/89 93 Nasal Cannula 2.0 06/29/17 12:22 145/70 06/29/17 12:00 98.6 99 32 145/70 98 Nasal Cannula 2.0 06/29/17 11:33 61 22 96 Nasal Cannula 2.0 28 06/29/17 11:25 56 22 92 Nasal Cannula 2.0 28 06/29/17 09:40 116 132/80 06/29/17 09:40 116 132/80 06/29/17 08:00 98.6 116 36 132/80 96 Nasal Cannula 3.0 06/29/17 07:22 97 Nasal Cannula 3.0 32 06/29/17 07:22 Nasal Cannula 3.0 32 06/29/17 07:22 85 20 Nasal Cannula 3.0 32 06/29/17 06:19 123/94 06/29/17 04:00 Nasal Cannula 3.0 06/29/17 04:00 98.2 99 20 123/94 100 06/29/17 00:00 Nasal Cannula 3.0 06/29/17 00:00 97.7 98 20 152/70 96 06/28/17 23:56 152/70 Intake and Output 06/28/17 06/29/17 19:00 07:00 Intake Total 820 ml 1040 ml Output Total 1800 ml Balance 820 ml -760 ml Free Water 100 ml 150 ml IV Total 110 ml Tube Feeding 720 ml 780 ml Output Urine Total 1800 ml Laboratory Tests 06/29/17 06:00: White Blood Count 6.0, Red Blood Count 3.23L, Hemoglobin 9.8L, Hematocrit 30.2L , Mean Corpuscular Volume 93, Mean Corpuscular Hemoglobin 30.2, Mean Corpuscular Hemoglobin Concent 32.4, Red Cell Distribution Width 16.9H, Platelet Count 370, Mean Platelet Volume 6.2L, Neutrophils (%) (Auto) 76.4H, Lymphocytes (%) (Auto) 14.7L, Monocytes (%) (Auto) 5.3, Eosinophils (%) (Auto) 3.1H, Basophils (%) (Auto) 0.6, Sodium Level 147H, Potassium Level 4.7, Chloride Level 106, Carbon Dioxide Level 34H, Anion Gap 7, Blood Urea Nitrogen 41H, Creatinine 1.7H, Estimat Glomerular Filtration Rate 40.8, Glucose Level 326H, Calcium Level 9.3, Pro-B-Type Natriuretic Peptide 4291H Height (Feet): 5 Height (Inches): 9.00 Weight (Pounds): 189 General Appearance: no apparent distress EENT: normal ENT inspection Cardiovascular: tachycardia Respiratory/Chest: decreased breath sounds Dejan Copeland Jun 29, 2017 23:19
[2017-06-30] VITALS: BP 118/63
[2017-06-30] MEDS ORDERED: Nitroglycerin Subl 0.4mg tab SL PRN (00:45)
[2017-06-30] MEDS: HydrALAZINE 10mg Tab GT SCH ×2 (01:30→05:22)
[2017-06-30] MEDS: NovoLOG Insulin Flexpen SUBQ SCH ×4 (01:32→17:59)
[2017-06-30] MEDS: Albuterol/Ipratropium 3ml neb HHN PRN (02:17)
--- NOTE | 2017-06-30 02:30 | Progress Note ---
DATE: 06/29/2017 CARDIOLOGY PROGRESS NOTE SUBJECTIVE: Still with congestion and shortness of breath, mildly improved. OBJECTIVE: VITAL SIGNS: Blood pressure 137/89, pulse 110, respiratory rate 20, and afebrile. LUNGS: Coarse breath sounds. HEART: Regular rhythm and rapid rate. Normal S1 and S2. ABDOMEN: Soft. EXTREMITIES: Trace edema. Good peripheral perfusion. LABORATORY AND DIAGNOSTIC DATA: Chest x-ray today reveals left lung retrocardiac consolidation with air and left pleural effusion. White count 6 and hemoglobin 9.8. Sodium 147, potassium 4.7, bicarbonate 34, BUN 41, and creatinine 1.7. Pro-natriuretic peptide has decreased from 14,000 to 4200. IMPRESSION: 1. Status post respiratory failure with healthcare acquired pneumonia. 2. Aspiration pneumonia. 3. Acute diastolic congestive heart failure, resolved. 4. Dehydration and hypernatremia following diuresis. 5. Acute on chronic kidney injury following diuresis. 6. Severe protein-calorie malnutrition. PLAN: 1. Decrease diuresis. 2. Continue antibiotics. 3. Respiratory hygiene. 4. Protein supplement. 5. Titrate antihypertensives. 6. Continue beta-abdoulaye therapy. Ulisses Gaston M.D. DR: HAYES JOB#: [id number] CC:
[2017-06-30] MEDS ORDERED: Acetaminophen 500mg (ES) tab ORAL PRN ×2 (03:00→15:00)
[2017-06-30 04:00] VITALS: BP 130/76
[2017-06-30 04:47] LABS: BASOPHILS % (AUTO) 0.6 % (0.0-2.0); EOSINOPHILS % (AUTO) 1.5 % (0.0-3.0); HEMATOCRIT 30.3 % (42.0-52.0); HEMOGLOBIN 9.6 G/DL (14.2-18.0); LYMPHOCYTES % (AUTO) 14.1 % (20.0-45.0); MEAN CORPUSCULAR VOLUME 95 FL (80-99); MONOCYTES % (AUTO) 4.2 % (1.0-10.0); NEUTROPHILS % (AUTO) 79.6 % (45.0-75.0); PLATELET COUNT 427 K/UL (150-450); RED CELL DISTRIBUTION WIDTH 16.9 % (11.6-14.8); WHITE BLOOD COUNT 7.1 K/UL (4.8-10.8)
[2017-06-30 05:10] LABS: ALANINE AMINOTRANSFERASE 59 U/L (12-78); ALBUMIN 1.8 G/DL (3.4-5.0); ALBUMIN/GLOBULIN RATIO 0.3 (1.0-2.7); ALKALINE PHOSPHATASE 119 U/L (46-116); ANION GAP 6 mmol/L (5-15); ASPARTATE AMINO TRANSFERASE 34 U/L (15-37); BILIRUBIN,TOTAL 0.2 MG/DL (0.2-1.0); BLOOD UREA NITROGEN 51 mg/dL (7-18); CARBON DIOXIDE 34 MMOL/L (21-32); CHLORIDE 108 MMOL/L (98-107); CREATININE 2.2 MG/DL (0.55-1.30); POTASSIUM 5.4 MMOL/L (3.5-5.1); SODIUM 148 MMOL/L (136-145)
[2017-06-30] MEDS: Cefepime HCl 2 GM in D5W 55 ML IVPB SCH (05:23)
[2017-06-30] MEDS ORDERED: Cefepime HCl 2 GM in D5W 55 ML IVPB SCH (06:00)
[2017-06-30 08:00] VITALS: BP 145/84
--- NOTE | 2017-06-30 08:09 | Pulmonology Progress Note ---
Assessment/Plan Problems: (1) CHF (congestive heart failure) (2) Aspiration pneumonia (3) History of CVA (cerebrovascular accident) (4) Feeding by G-tube Assessment/Plan dxr showing LLL atelectasis and effusion diuretics as needed, lasix qd check electrolytes, on daily Kcl transfer back to med/surg if of with other consultants Subjective Interval Events: transferred to [facility] b/o desaturation, improved in [facility] Allergies: Coded Allergies: No Known Allergies (Unverified , 05/11/17) Objective Last 24 Hour Vital Signs Date Time Temp Pulse Resp B/P (MAP) Pulse Ox O2 Delivery O2 Flow Rate FiO2 06/30/17 06:54 Non-Rebreather 15.0 100 06/30/17 06:53 97 Non-Rebreather 15.0 100 06/30/17 06:49 107 18 Non-Rebreather 15.0 100 06/30/17 05:22 130/76 06/30/17 04:00 99.2 114 24 130/76 94 Nasal Cannula 3.0 06/30/17 03:43 113 06/30/17 02:26 108 22 97 Non-Rebreather 15.0 100 06/30/17 02:17 98 22 99 Non-Rebreather 15.0 100 06/30/17 01:30 144/78 06/30/17 00:00 98.0 105 20 118/63 95 Non-Rebreather 06/29/17 23:39 104 06/29/17 22:23 101 22 89 Non-Rebreather 15.0 100 06/29/17 22:08 98.2 06/29/17 22:01 96 22 88 Non-Rebreather 15.0 100 06/29/17 21:09 118 141/71 06/29/17 20:00 100.6 118 22 141/71 91 06/29/17 19:27 89 18 Nasal Cannula 3.0 32 06/29/17 19:27 Nasal Cannula 3.0 32 06/29/17 19:27 92 Nasal Cannula 3.0 32 06/29/17 17:59 137/89 06/29/17 16:03 98.8 110 20 137/89 93 Nasal Cannula 2.0 06/29/17 12:22 145/70 06/29/17 12:00 98.6 99 32 145/70 98 Nasal Cannula 2.0 1/12/18 11:33 61 22 96 Nasal Cannula 2.0 28 06/29/17 11:25 56 22 92 Nasal Cannula 2.0 28 06/29/17 09:40 116 132/80 06/29/17 09:40 116 132/80 Intake and Output 06/29/17 06/30/17 19:00 07:00 Intake Total 820 ml 620 ml Output Total 1800 ml Balance 820 ml -1180 ml Free Water 160 ml 120 ml IV Total 110 ml Tube Feeding 660 ml 360 ml Other 30 ml Output Urine Total 1800 ml Objective General Appearance: no acute distress HEENT: normocephalic, atraumatic Respiratory/Chest: lungs clear, no respiratory distress, no accessory muscle use Cardiovascular: normal rate, no JVD, CL-femoral intact Abdomen: normal bowel sounds, soft, non tender Extremities: no edema Neurologic/Psychiatric: alert, responsive Musculoskeletal: normal muscle bulk Laboratory Tests 06/30/17 03:35: White Blood Count 7.1, Red Blood Count 3.20L, Hemoglobin 9.6L, Hematocrit 30.3L , Mean Corpuscular Volume 95, Mean Corpuscular Hemoglobin 30.1, Mean Corpuscular Hemoglobin Concent 31.8L, Red Cell Distribution Width 16.9H, Platelet Count 427, Mean Platelet Volume 6.3L, Neutrophils (%) (Auto) 79.6H, Lymphocytes (%) (Auto) 14.1L, Monocytes (%) (Auto) 4.2, Eosinophils (%) (Auto) 1.5, Basophils (%) (Auto) 0.6, Sodium Level 148H, Potassium Level 5.4H, Chloride Level 108H, Carbon Dioxide Level 34H, Anion Gap 6, Blood Urea Nitrogen 51H, Creatinine 2.2H, Estimat Glomerular Filtration Rate 30.3, Glucose Level 372H, Calcium Level 9.0, Total Bilirubin 0.2, Aspartate Amino Transf (AST/SGOT) 34, Alanine Aminotransferase (ALT/SGPT) 59, Alkaline Phosphatase 119H, Pro-B- Type Natriuretic Peptide 4127H, Total Protein 7.2, Albumin 1.8L, Globulin 5.4, Albumin/Globulin Ratio 0.3L Current Medications Medications (Trade) Dose Ordered Sig/Willem Route PRN Reason Start Time Stop Time Status Last Admin Dose Admin Acetaminophen (Tylenol) 650 mg DAILY PRN ORAL Temp > 100.5 06/30/17 09:00 07/26/17 20:59 Acetaminophen (Tylenol) 650 mg Q6H PRN ORAL MILD PAIN (1-4). NTE 3GM/DAY 06/30/17 03:00 07/26/17 20:59 Acetaminophen (Tylenol) 1,000 mg Q6H PRN ORAL MODERATE PAIN (5-7) 06/30/17 03:00 07/26/17 20:59 Albuterol/ Ipratropium (Albuterol/ Ipratropium) 3 ml Q4H PRN HHN Shortness of Breath 06/30/17 01:00 07/01/17 20:59 06/30/17 02:17 Amlodipine Besylate (Norvasc) 10 mg DAILY GT 06/30/17 09:00 07/21/17 08:59 Aspirin (ASA) 81 mg DAILY ORAL 06/30/17 09:00 07/30/17 08:59 Bisacodyl (Dulcolax) 10 mg DAILYPRN PRN RECTAL constipationIF MOM INEFFECTIVE 06/30/17 21:00 07/26/17 20:59 Cefepime HCl 2 gm/ Dextrose 55 ml @ 110 mls/hr Q24H IVPB 06/30/17 06:00 07/07/17 05:59 06/30/17 05:23 Clonidine HCl (Catapres Tab) 0.1 mg Q4H PRN GT bp of 160 syst and above 06/30/17 01:00 07/21/17 16:59 Collagenase (Santyl) 1 applic DAILY TOPIC 06/30/17 09:00 07/29/17 08:59 Dextrose (Dextrose 50%) STAT PRN IV Hypoglycemia 06/30/17 21:00 07/26/17 20:59 Famotidine (Pepcid) 20 mg DAILY ORAL 06/30/17 09:00 07/22/17 08:59 Furosemide (Lasix) 40 mg DAILY ORAL 06/30/17 09:00 07/30/17 08:59 Heparin Sodium (Porcine) (Heparin 5000 units/ml) 5,000 units EVERY 12 HOURS SUBQ 06/30/17 09:00 07/21/17 08:59 Hydralazine HCl (Apresoline) 10 mg Q6HR GT 06/30/17 00:45 07/21/17 17:59 06/30/17 05:22 Insulin Aspart (NovoLOG) EVERY 6 HOURS SUBQ 06/30/17 00:45 07/21/17 06:29 06/30/17 05:30 Levofloxacin (Levaquin) 750 mg DAILY ORAL 06/30/17 09:00 07/07/17 08:59 UNV Levothyroxine Sodium (Synthroid) 50 mcg ACBREAKFAST GT 06/30/17 06:30 07/21/17 06:29 06/30/17 05:30 Metoprolol Tartrate (Lopressor) 50 mg EVERY 12 HOURS GT 06/30/17 09:00 07/21/17 08:59 Nitroglycerin (Ntg) 0.4 mg Q5M PRN SL CHEST PAIN 06/30/17 00:45 07/21/17 20:59 Potassium Chloride (K-Dur) 40 meq DAILY GT 06/30/17 09:00 07/28/17 08:59 JESSE ZAVALA Jun 30, 2017 08:08
[2017-06-30] MEDS: Metoprolol Tartrate 50mg tab GT SCH ×2 (08:47→20:34)
[2017-06-30] MEDS: Heparin 5000 units/ml inj SUBQ SCH ×2 (08:47→20:38)
[2017-06-30] MEDS: Aspirin Baby 81mg ORAL SCH (08:48)
[2017-06-30] MEDS ORDERED: Furosemide 40mg tab ORAL SCH ×2 (09:00)
[2017-06-30] MEDS ORDERED: Levofloxacin 500mg tab ORAL SCH (09:00)
--- NOTE | 2017-06-30 10:15 | Progress Note ---
DATE: 06/29/2017 NOTE: POOR AUDIO SUBJECTIVE: The patient's condition deteriorated today. He became tachycardic, tachypneic, and hypoxic. He received respiratory therapy and did not improve until he was placed on a non-rebreathing mask, in which his saturation improved to 91. His heart rate declined from 120 between 95 to 100 and respiratory rate is near 20. PHYSICAL EXAMINATION: VITAL SIGNS: Blood pressure 141/71, his pulse is 118, respirations 22, and temperature was 100.6. HEENT: Eyes were normal. ENT, mucous membranes were moist and intact. NECK: Supple with no JVD without lymph nodes. LUNGS: Clear with rhonchi at both bases posteriorly. HEART: Normal sounds beats and intermittent tachycardia at rest. ABDOMEN: Soft and nontender with normal bowel sounds. Gastrostomy site is clean. EXTREMITIES: Warm without cyanosis, clubbing, or edema. LABORATORY AND DIAGNOSTIC DATA: Hemoglobin is 9.8, hematocrit of 30.2 with MCV of 93, WBC of 6.0, and platelets 370,000. His BUN and creatinine is 41 and 1.7, respectively. His sodium is 147, potassium 4.7, chloride 106, and CO2 is 34. His calcium is 9.3. His proBNP declined from 14,000 to 4300. Chest x-ray done today revealed an improvement in right lung while in the left lung base, there is a retrocardiac consolidation . IMPRESSION AND PLAN: The patient is having retrocardiac pneumonia, hypoxia, tachycardia, and respiratory distress. In order to prevent the patient from being intubated . He will be transferred to [facility] and receive respiratory therapy every four hours. The patient currently is on cefepime 2 g IV piggyback q.24 h. His management of congestive heart failure that includes with KCl metoprolol 50 mg daily with improvement in his congestive heart failure. However, recovery done by cefepime will be increased by levofloxacin 750 mg intravenous piggyback q.24 hours. Repeat laboratory tests will be done in the a.m. Martina Morales M.D. DR: HARDY JOB#: [id number] CC:
--- NOTE | 2017-06-30 10:41 | Nephrology Progress Note ---
Assessment/Plan Problem List: (1) Acute renal failure (2) Respiratory failure requiring intubation (3) Urosepsis (4) Anemia Assessment: worsening (5) Hypoalbuminemia Assessment BOOGIE (acute kidney injury), Cr gradually rising again H&H lower Respiratory failure requiring intubation Respiratory failure with hypoxia Aspiration pneumonia, Urosepsis Anemia ACS (acute coronary syndrome), Non St Elevation NE CHF (congestive heart failure) Acute encephalopathy GT feeding Plan plan: One liter of 1/2 NS transfused avoid Nephrotoxics monitor renal parameters Keep BP and BS in check Optimize pulmonary and cardiac support Subjective ROS Limited/Unobtainable: No Constitutional: Reports: malaise, weakness Objective Objective Last 24 Hour Vital Signs Date Time Temp Pulse Resp B/P (MAP) Pulse Ox O2 Delivery O2 Flow Rate FiO2 06/30/17 08:48 114 145/84 06/30/17 08:47 114 145/84 06/30/17 08:00 112 06/30/17 08:00 98.6 114 19 145/84 92 Nasal Cannula 3.0 06/30/17 06:54 Non-Rebreather 15.0 100 06/30/17 06:53 97 Non-Rebreather 15.0 100 06/30/17 06:49 107 18 Non-Rebreather 15.0 100 06/30/17 05:22 130/76 06/30/17 04:00 99.2 114 24 130/76 94 Nasal Cannula 3.0 06/30/17 03:43 113 06/30/17 02:26 108 22 97 Non-Rebreather 15.0 100 06/30/17 02:17 98 22 99 Non-Rebreather 15.0 100 06/30/17 01:30 144/78 06/30/17 00:00 98.0 105 20 118/63 95 Non-Rebreather 06/29/17 23:39 104 06/29/17 22:23 101 22 89 Non-Rebreather 15.0 100 06/29/17 22:08 98.2 06/29/17 22:01 96 22 88 Non-Rebreather 15.0 100 06/29/17 21:09 118 141/71 06/29/17 20:00 100.6 118 22 141/71 91 06/29/17 19:27 89 18 Nasal Cannula 3.0 32 06/29/17 19:27 Nasal Cannula 3.0 32 06/29/17 19:27 92 Nasal Cannula 3.0 32 06/29/17 17:59 137/89 06/29/17 16:03 98.8 110 20 137/89 93 Nasal Cannula 2.0 06/29/17 12:22 145/70 06/29/17 12:00 98.6 99 32 145/70 98 Nasal Cannula 2.0 06/29/17 11:33 61 22 96 Nasal Cannula 2.0 28 06/29/17 11:25 56 22 92 Nasal Cannula 2.0 28 Intake and Output 06/29/17 06/30/17 19:00 07:00 Intake Total 820 ml 620 ml Output Total 1800 ml Balance 820 ml -1180 ml Free Water 160 ml 120 ml IV Total 110 ml Tube Feeding 660 ml 360 ml Other 30 ml Output Urine Total 1800 ml Laboratory Tests 06/30/17 03:35: White Blood Count 7.1, Red Blood Count 3.20L, Hemoglobin 9.6L, Hematocrit 30.3L , Mean Corpuscular Volume 95, Mean Corpuscular Hemoglobin 30.1, Mean Corpuscular Hemoglobin Concent 31.8L, Red Cell Distribution Width 16.9H, Platelet Count 427, Mean Platelet Volume 6.3L, Neutrophils (%) (Auto) 79.6H, Lymphocytes (%) (Auto) 14.1L, Monocytes (%) (Auto) 4.2, Eosinophils (%) (Auto) 1.5, Basophils (%) (Auto) 0.6, Sodium Level 148H, Potassium Level 5.4H, Chloride Level 108H, Carbon Dioxide Level 34H, Anion Gap 6, Blood Urea Nitrogen 51H, Creatinine 2.2H, Estimat Glomerular Filtration Rate 30.3, Glucose Level 372H, Calcium Level 9.0, Total Bilirubin 0.2, Aspartate Amino Transf (AST/SGOT) 34, Alanine Aminotransferase (ALT/SGPT) 59, Alkaline Phosphatase 119H, Pro-B- Type Natriuretic Peptide 4127H, Total Protein 7.2, Albumin 1.8L, Globulin 5.4, Albumin/Globulin Ratio 0.3L Height (Feet): 5 Height (Inches): 9.00 Weight (Pounds): 189 General Appearance: no apparent distress, lethargic Cardiovascular: tachycardia Respiratory/Chest: decreased breath sounds Abdomen: distended Objective no other changes FOULADIAN,GARCÍA Jun 30, 2017 10:41
--- NOTE | 2017-06-30 11:48 | Diagnostic Imaging Report ---
Indication: Dyspnea Technique: XRAY Chest 1v Comparison: 06/29/2017 Findings: Heart size and mediastinal contours are stable. There is continued increased interval hazy opacification of the left hemithorax likely related to increased layering pleural fluid and/or atelectasis/consolidation. There is slight shift of mediastinal structures to the left possibly suggesting a degree of lobar collapse. No pneumothorax. No acute osseous abnormality. Impression: Increasing hazy opacification of the left hemithorax with increasing layering pleural fluid. Slight shift of mediastinal structures to the left may suggest a component of lobar collapse.
[2017-06-30 12:00] VITALS: BP 144/73
[2017-06-30] MEDS: HydrALAZINE 25mg tab GT SCH ×2 (14:07→21:25)
--- NOTE | 2017-06-30 14:23 | Infectious Diseases Prog Note ---
Assessment/Plan Assessment/Plan Sepsis 2ry to HCAP, improving CXR 06/26: Probable mild CHF. Please correlate clinically -CXR 06/22: Lungs and pleural spaces are clear -CXR: There is infiltrate in the left infrahilar region. There is some atelectasis at the right lung base. There is also retrocardiac consolidation -sp cx: +3 MDR PSA (S. Cefepime, Gentamicin/Amikacin) -u./a WBC 5-10, nit neg, leuk est +1, ucx 10-20K C. albicans (colonzier) -rectal wound cx: ESBL E.coli, PsA (colonizers)- no signs of infection 07/22 CoNS bacteremia- suspect contaminant 06/20 +07/22, 06/21 Neg x4 Fever-resolved leukocytosis-resolved Lactic acidosis- resolved Recent admission at [facility]SH for sepsis, s/p IV abx (~1 wk [employer]IST[employer]) Acute hypoxic resp failure s/p intubation 06/20- s/p extubation 06/25 BOOGIE, improving Recent gastritis (dx by EGD) Cdiff neg 06/25 Hx of encephalopathy -05/22 CT head: No evidence of acute intracranial hemorrhage, mass effect or cortical edema. MRI may be obtained for more sensitive evaluation as clinically indicated. Stable chronic infarct in the right frontal lobe. Cerebral and cerebellar atrophy greater than expected for age. Clinical correlation recommended. Mild periventricular hypoattenuation suggestive of chronic ischemic microvascular changes. -previous admission:nical correlation recommended. Mild periventricular hypoattenuation suggestive of chronic ischemic microvascular changes. Small area of right frontal encephalomalacia suggestive of old infarct. -UDS neg -TSH normal -Neg: HIV ag/ab, RPR, CrAg serum, FTA-ab -Brain MRI: Chronic and age-related changes. Old right frontal infarct. Negative for acute intracranial bleed, mass effect, or acute infarct hx of VRE and MRSA colonization HTN, CKD, DM2, bipolar dz/schizophrenia, GERD, cardiac arrhythmia, Dementia, CAD with prior NV, MS, osteoporosis, asthma, VIt D def, hypothyroidism, HLD, dysphagia s/p GT, R MCA CVA with left hemiplegia, s/p trach Plan: -Continue Cefepime d# /10 -06/25 SP IV vancomycin #5, Amikacin #5 -16 SP Meropenem #3 -1/4 SP Amikacin x1 -Monitor CBC/BMP, temperatures -aspiration precautions - wound care Subjective Constitutional: Denies: no symptoms, fever, chills, fatigue, anorexia, drenching sweats, other Allergies: Coded Allergies: No Known Allergies (Unverified , 05/11/17) Subjective AFEBRILE Objective Vital Signs Last 24 Hour Vital Signs Date Time Temp Pulse Resp B/P (MAP) Pulse Ox O2 Delivery O2 Flow Rate FiO2 06/30/17 14:07 143/71 06/30/17 12:00 99.8 110 18 144/73 92 Nasal Cannula 3.0 06/30/17 08:48 114 145/84 06/30/17 08:47 114 145/84 06/30/17 08:00 112 06/30/17 08:00 98.6 114 19 145/84 92 Nasal Cannula 3.0 06/30/17 06:54 Non-Rebreather 15.0 100 06/30/17 06:53 97 Non-Rebreather 15.0 100 06/30/17 06:49 107 18 Non-Rebreather 15.0 100 06/30/17 05:22 130/76 06/30/17 04:00 99.2 114 24 130/76 94 Nasal Cannula 3.0 06/30/17 03:43 113 06/30/17 02:26 108 22 97 Non-Rebreather 15.0 100 06/30/17 02:17 98 22 99 Non-Rebreather 15.0 100 06/30/17 01:30 144/78 06/30/17 00:00 98.0 105 20 118/63 95 Non-Rebreather 06/29/17 23:39 104 06/29/17 22:23 101 22 89 Non-Rebreather 15.0 100 06/29/17 22:08 98.2 06/29/17 22:01 96 22 88 Non-Rebreather 15.0 100 06/29/17 21:09 118 141/71 06/29/17 20:00 100.6 118 22 141/71 91 06/29/17 19:27 89 18 Nasal Cannula 3.0 32 06/29/17 19:27 Nasal Cannula 3.0 32 06/29/17 19:27 92 Nasal Cannula 3.0 32 06/29/17 17:59 137/89 1/12/18 16:03 98.8 110 20 137/89 93 Nasal Cannula 2.0 Height (Feet): 5 Height (Inches): 9.00 Weight (Pounds): 189 HEENT: anicteric Respiratory/Chest: no respiratory distress Cardiovascular: regularly irregular Abdomen: no mass Laboratory Tests Test 06/30/17 03:35 White Blood Count 7.1 K/UL (4.8-10.8) Red Blood Count 3.20 M/UL (4.70-6.10) L Hemoglobin 9.6 G/DL (14.2-18.0) L Hematocrit 30.3 % (42.0-52.0) L Mean Corpuscular Volume 95 FL (80-99) Mean Corpuscular Hemoglobin 30.1 PG (27.0-31.0) Mean Corpuscular Hemoglobin Concent 31.8 G/DL (32.0-36.0) L Red Cell Distribution Width 16.9 % (11.6-14.8) H Platelet Count 427 K/UL (150-450) Mean Platelet Volume 6.3 FL (6.5-10.1) L Neutrophils (%) (Auto) 79.6 % (45.0-75.0) H Lymphocytes (%) (Auto) 14.1 % (20.0-45.0) L Monocytes (%) (Auto) 4.2 % (1.0-10.0) Eosinophils (%) (Auto) 1.5 % (0.0-3.0) Basophils (%) (Auto) 0.6 % (0.0-2.0) Sodium Level 148 MMOL/L (136-145) H Potassium Level 5.4 MMOL/L (3.5-5.1) H Chloride Level 108 MMOL/L (98-107) H Carbon Dioxide Level 34 MMOL/L (21-32) H Anion Gap 6 mmol/L (5-15) Blood Urea Nitrogen 51 mg/dL (7-18) H Creatinine 2.2 MG/DL (0.55-1.30) H Estimat Glomerular Filtration Rate 30.3 mL/min (>60) Glucose Level 372 MG/DL (74-106) H Calcium Level 9.0 MG/DL (8.5-10.1) Total Bilirubin 0.2 MG/DL (0.2-1.0) Aspartate Amino Transf (AST/SGOT) 34 U/L (15-37) Alanine Aminotransferase (ALT/SGPT) 59 U/L (12-78) Alkaline Phosphatase 119 U/L (46-116) H Pro-B-Type Natriuretic Peptide 4127 pg/mL (0-125) H Total Protein 7.2 G/DL (6.4-8.2) Albumin 1.8 G/DL (3.4-5.0) L Globulin 5.4 g/dL Albumin/Globulin Ratio 0.3 (1.0-2.7) L Current Medications Medications (Trade) Dose Ordered Sig/Willem Route PRN Reason Start Time Stop Time Status Last Admin Dose Admin Acetaminophen (Tylenol) 500 mg Q6H PRN ORAL MILD PAIN (1-4). NTE 3GM/DAY 06/30/17 15:00 07/30/17 14:59 Acetaminophen (Tylenol) 650 mg DAILY PRN ORAL Temp > 100.5 06/30/17 09:00 07/26/17 20:59 Acetaminophen (Tylenol) 650 mg Q6H PRN ORAL MODERATE PAIN (5-7) 06/30/17 15:00 07/30/17 14:59 Albuterol/ Ipratropium (Albuterol/ Ipratropium) 3 ml Q4H PRN HHN Shortness of Breath 06/30/17 01:00 07/01/17 20:59 06/30/17 02:17 Amlodipine Besylate (Norvasc) 10 mg DAILY GT 06/30/17 09:00 07/21/17 08:59 06/30/17 08:48 Aspirin (ASA) 81 mg DAILY ORAL 06/30/17 09:00 07/30/17 08:59 06/30/17 08:48 Bisacodyl (Dulcolax) 10 mg DAILYPRN PRN RECTAL constipationIF MOM INEFFECTIVE 06/30/17 21:00 07/26/17 20:59 Cefepime HCl 2 gm/ Dextrose 55 ml @ 110 mls/hr Q24H IVPB 06/30/17 06:00 07/07/17 05:59 06/30/17 05:23 Clonidine HCl (Catapres Tab) 0.1 mg Q4H PRN GT bp of 160 syst and above 06/30/17 01:00 07/21/17 16:59 Collagenase (Santyl) 1 applic DAILY TOPIC 06/30/17 09:00 07/29/17 08:59 06/30/17 08:49 Dextrose (Dextrose 50%) STAT PRN IV Hypoglycemia 06/30/17 21:00 07/26/17 20:59 Famotidine (Pepcid) 20 mg DAILY ORAL 06/30/17 09:00 07/22/17 08:59 06/30/17 08:47 Heparin Sodium (Porcine) (Heparin 5000 units/ml) 5,000 units EVERY 12 HOURS SUBQ 06/30/17 09:00 07/21/17 08:59 06/30/17 08:47 Hydralazine HCl (Apresoline) 25 mg Q8HR GT 06/30/17 14:00 07/21/17 17:59 06/30/17 14:07 Insulin Aspart (NovoLOG) EVERY 6 HOURS SUBQ 06/30/17 00:45 07/21/17 06:29 06/30/17 11:56 Levothyroxine Sodium (Synthroid) 50 mcg ACBREAKFAST GT 06/30/17 06:30 07/21/17 06:29 06/30/17 05:30 Metoprolol Tartrate (Lopressor) 50 mg EVERY 12 HOURS GT 06/30/17 09:00 07/21/17 08:59 06/30/17 08:47 Nitroglycerin (Ntg) 0.4 mg Q5M PRN SL CHEST PAIN 06/30/17 00:45 07/21/17 20:59 Sodium Chloride 1,000 ml @ 100 mls/hr Q10H IV 06/30/17 11:00 06/30/17 20:59 06/30/17 11:00 REJI HOANG M.D. Jun 30, 2017 14:22
[2017-06-30 16:00] VITALS: BP 153/80
[2017-06-30] MEDS ORDERED: NS 275ml ONE (17:06)
[2017-06-30] MEDS ORDERED: 1/2 NS 1000ml IV ONE (17:44)
[2017-06-30 20:00] VITALS: BP 134/76
[2017-06-30] MEDS: Levemir Flexpen SUBQ SCH (20:37)
[2017-07-01] VITALS: BP 142/74
[2017-07-01] MEDS: NovoLOG Insulin Flexpen SUBQ SCH ×4 (00:18→16:54)
--- NOTE | 2017-07-01 03:58 | General Progress Note ---
Assessment/Plan Status: deteriorating Assessment/Plan 1. Anemia secondary to chronic disease. I worked up the patient about a week ago prior to admission in the patient with anemia of chronic disease. --> Hemoglobin goal >7 --> S/P PRBC, no complications. Continue to monitor hgb levels daily. --> Hemoglobin stable since transfusion. No further transfusions needed at the moment. 2. Coagulopathy, malnutrition and vitamin K deficiency. --> Closely monitor. On anticoagulation as needed. 3. Leukocytosis, likely secondary to underlying infection, sepsis, and antibiotics. --> has resolved, wbc count wnl --> Remains on antibiotics. 4. Acute hypoxemia, requiring intubation. 5. Lactic acidosis. 6. Acute kidney injury. 7. Dysphagia with gastrostomy tube. 8. Cerebrovascular accident with right-sided hemiplegia. 9. Acute toxic metabolic encephalopathy. 10. Hypothyroidism. Subjective Date patient seen: Jun 30, 2017 Constitutional: Denies: no symptoms, chills, diaphoresis, fever, malaise, weakness, other HEENT: Denies: no symptoms, eye pain, blurred vision, tearing, double vision, ear pain, ear discharge, nose pain, nose congestion, throat pain, throat swelling, mouth pain, mouth swelling, other Cardiovascular: Denies: no symptoms, chest pain, edema, irregular heart rate, lightheadedness, palpitations, syncope, other Respiratory: Denies: no symptoms, cough, orthopnea, shortness of breath, SOB with excertion, SOB at rest, sputum, stridor, wheezing, other Gastrointestinal/Abdominal: Denies: no symptoms, abdomen distended, abdominal pain, black stools, tarry stools, blood in stool, constipated, diarrhea, difficulty swallowing, nausea, poor appetite, poor fluid intake, rectal bleeding , vomiting, other Genitourinary: Denies: no symptoms, burning, discharge, frequency, flank pain, hematuria, incontinence, pain, urgency, other Hematologic/Lymphatic: Reports: anemia Allergies: Coded Allergies: No Known Allergies (Unverified , 05/11/17) Subjective In worse condition today. Tachycardic, Febrile, and tachypneic. Objective Last 24 Hour Vital Signs Date Time Temp Pulse Resp B/P (MAP) Pulse Ox O2 Delivery O2 Flow Rate FiO2 07/01/17 01:30 115 28 98 Facial 70 07/01/17 00:00 97.5 108 22 142/74 100 Non-Rebreather 15.0 07/01/17 00:00 105 06/30/17 23:08 111 30 96 Facial 70 06/30/17 21:34 100.4 06/30/17 21:25 134/76 06/30/17 20:34 133 134/76 06/30/17 20:00 100.8 121 28 134/76 100 Non-Rebreather 15.0 06/30/17 20:00 94 Non-Rebreather 15.0 100 06/30/17 20:00 Non-Rebreather 15.0 100 06/30/17 20:00 125 06/30/17 20:00 133 24 Non-Rebreather 15.0 100 06/30/17 16:00 135 06/30/17 16:00 99.9 130 19 153/80 94 Nasal Cannula 4.0 06/30/17 14:07 143/71 06/30/17 12:00 99.8 110 18 144/73 92 Nasal Cannula 3.0 06/30/17 08:48 114 145/84 06/30/17 08:47 114 145/84 06/30/17 08:00 112 06/30/17 08:00 98.6 114 19 145/84 92 Nasal Cannula 3.0 06/30/17 06:54 Non-Rebreather 15.0 100 06/30/17 06:53 97 Non-Rebreather 15.0 100 06/30/17 06:49 107 18 Non-Rebreather 15.0 100 06/30/17 05:22 130/76 06/30/17 04:00 99.2 114 24 130/76 94 Nasal Cannula 3.0 Intake and Output 06/30/17 07/01/17 19:00 07:00 Intake Total 1156.667 ml 343.75 ml Output Total 1650 ml Balance -493.333 ml 343.75 ml Free Water 50 ml IV Total 676.667 ml 343.75 ml Tube Feeding 330 ml Other 100 ml Output Urine Total 1650 ml Laboratory Tests 06/30/17 18:02: Arterial Blood pH 7.496H, Arterial Blood Partial Pressure CO2 41.7, Arterial Blood Partial Pressure O2 36.0*L, Arterial Blood HCO3 31.5H, Arterial Blood Oxygen Saturation 72.4L, Arterial Blood Base Excess 7.6, Khang Test Positive Height (Feet): 5 Height (Inches): 9.00 Weight (Pounds): 169 Cardiovascular: tachycardia Edema: mild edema Dejan Copeland Jul 01, 2017 03:58
[2017-07-01 04:00] VITALS: BP 143/79
--- NOTE | 2017-07-01 04:30 | Progress Note ---
DATE: 06/30/2017 CARDIOLOGY PROGRESS NOTE SUBJECTIVE: This patient is tachycardic. PHYSICAL EXAMINATION: VITAL SIGNS: Blood pressure 145/84, pulse 114, respiratory rate 19, and afebrile. LUNGS: Bilateral breath sounds. Scattered rhonchi. HEART: Regular rhythm. Rapid rate. Normal S1, S2. ABDOMEN: Soft. No edema. He is status post PRBC transfusion. LABORATORY AND DIAGNOSTIC DATA: White count 7.1, hemoglobin 9.6. ABG, pH 7.46, pCO2 41, and pO2 36. Sodium 148, potassium 5.4, bicarbonate 34, BUN 51, and creatinine 2.2. Chest x-ray reveals left hemithorax and possible lobar collapse. IMPRESSION: 1. Possible lung collapse. 2. Pleural effusion. 3. Worsening pneumonia. 4. Possible mucous plugging. 5. Hypoxia. 6. Sinus tachycardia. 7. Status post respiratory failure. 8. Dehydration. 9. Hypernatremia. 10. Acute on chronic renal failure. PLAN: 1. Hypotonic IV fluids. 2. Respiratory therapy. 3. Aggressive suctioning. 4. Pulmonology followup requested. Ulisses Gaston M.D. DR: DAVIAN JOB#: [id number] CC:
[2017-07-01] MEDS: HydrALAZINE 25mg tab GT SCH ×3 (05:19→21:20)
[2017-07-01] MEDS: Cefepime HCl 2 GM in D5W 55 ML IVPB SCH (05:32)
[2017-07-01 05:38] LABS: BASOPHILS % (AUTO) 0.6 % (0.0-2.0); EOSINOPHILS % (AUTO) 0.4 % (0.0-3.0); HEMATOCRIT 28.2 % (42.0-52.0); HEMOGLOBIN 9.2 G/DL (14.2-18.0); LYMPHOCYTES % (AUTO) 11.2 % (20.0-45.0); MEAN CORPUSCULAR VOLUME 94 FL (80-99); MONOCYTES % (AUTO) 3.2 % (1.0-10.0); NEUTROPHILS % (AUTO) 84.6 % (45.0-75.0); PLATELET COUNT 451 K/UL (150-450); RED BLOOD COUNT 2.99 M/UL (4.70-6.10); WHITE BLOOD COUNT 10.1 K/UL (4.8-10.8)
[2017-07-01 05:43] LABS: ANION GAP 7 mmol/L (5-15); BLOOD UREA NITROGEN 61 mg/dL (7-18); CARBON DIOXIDE 32 MMOL/L (21-32); CHLORIDE 109 MMOL/L (98-107); CREATININE 2.5 MG/DL (0.55-1.30); POTASSIUM 5.5 MMOL/L (3.5-5.1); SODIUM 147 MMOL/L (136-145)
[2017-07-01 05:52] LABS: ALANINE AMINOTRANSFERASE 51 U/L (12-78); ALBUMIN 1.8 G/DL (3.4-5.0); ALBUMIN/GLOBULIN RATIO 0.3 (1.0-2.7); ALKALINE PHOSPHATASE 123 U/L (46-116); ANION GAP 6 mmol/L (5-15); ASPARTATE AMINO TRANSFERASE 28 U/L (15-37); BILIRUBIN,TOTAL 0.2 MG/DL (0.2-1.0); BLOOD UREA NITROGEN 62 mg/dL (7-18); CARBON DIOXIDE 32 MMOL/L (21-32); CHLORIDE 109 MMOL/L (98-107); CREATININE 2.5 MG/DL (0.55-1.30); POTASSIUM 5.4 MMOL/L (3.5-5.1); SODIUM 147 MMOL/L (136-145)
[2017-07-01 08:00] VITALS: BP 135/68
--- NOTE | 2017-07-01 08:53 | Pulmonology Progress Note ---
Assessment/Plan Problems: (1) CHF (congestive heart failure) (2) Aspiration pneumonia (3) History of CVA (cerebrovascular accident) (4) Feeding by G-tube Assessment/Plan LLL atelectesis worsening, on bipap now will need tracheostomy to prevent worsening atelectaisis diuretics as needed, lasix qd check electrolytes, on daily Kcl check eclectrolytes Subjective ROS Limited/Unobtainable: No Interval Events: was put on bipap last night because of dyspnea Constitutional: Reports: no symptoms Respiratory: Reports: no symptoms Allergies: Coded Allergies: No Known Allergies (Unverified , 05/11/17) Objective Last 24 Hour Vital Signs Date Time Temp Pulse Resp B/P (MAP) Pulse Ox O2 Delivery O2 Flow Rate FiO2 07/01/17 07:15 98 18 Bi-pap 70 07/01/17 07:15 98 16 100 Facial 70 07/01/17 07:15 100 Bi-pap 70 07/01/17 07:15 Bi-pap 70 07/01/17 05:30 111 24 97 Facial 70 07/01/17 05:19 142/74 07/01/17 04:20 Bi-pap 07/01/17 04:18 Bi-pap 07/01/17 04:00 98.1 117 24 143/79 100 Non-Rebreather 15.0 07/01/17 03:30 116 31 98 Facial 70 07/01/17 01:30 115 28 98 Facial 70 07/01/17 00:00 97.5 108 22 142/74 100 Non-Rebreather 15.0 07/01/17 00:00 105 06/30/17 23:08 111 30 96 Facial 70 06/30/17 21:34 100.4 06/30/17 21:25 134/76 06/30/17 20:34 133 134/76 06/30/17 20:00 100.8 121 28 134/76 100 Non-Rebreather 15.0 06/30/17 20:00 94 Non-Rebreather 15.0 100 06/30/17 20:00 Non-Rebreather 15.0 100 06/30/17 20:00 125 06/30/17 20:00 133 24 Non-Rebreather 15.0 100 06/30/17 16:00 135 06/30/17 16:00 99.9 130 19 153/80 94 Nasal Cannula 4.0 06/30/17 14:07 143/71 06/30/17 12:00 99.8 110 18 144/73 92 Nasal Cannula 3.0 Intake and Output 06/30/17 07/01/17 19:00 07:00 Intake Total 1156.667 ml 343.75 ml Output Total 1650 ml 1000 ml Balance -493.333 ml -656.25 ml Free Water 50 ml IV Total 676.667 ml 343.75 ml Tube Feeding 330 ml Other 100 ml Output Urine Total 1650 ml 1000 ml Objective General Appearance: no acute distress HEENT: normocephalic, atraumatic Respiratory/Chest: lungs clear, no respiratory distress, no accessory muscle use Cardiovascular: normal rate, no JVD, CL-femoral intact Abdomen: normal bowel sounds, soft, non tender Extremities: no edema Neurologic/Psychiatric: alert, responsive Musculoskeletal: normal muscle bulk Laboratory Tests 06/30/17 18:02: Arterial Blood pH 7.496H, Arterial Blood Partial Pressure CO2 41.7, Arterial Blood Partial Pressure O2 36.0*L, Arterial Blood HCO3 31.5H, Arterial Blood Oxygen Saturation 72.4L, Arterial Blood Base Excess 7.6, Khang Test Positive 07/01/17 03:40: White Blood Count 10.1, Red Blood Count 2.99L, Hemoglobin 9.2L, Hematocrit 28.2L , Mean Corpuscular Volume 94, Mean Corpuscular Hemoglobin 30.8, Mean Corpuscular Hemoglobin Concent 32.7, Red Cell Distribution Width 17.0H, Platelet Count 451H, Mean Platelet Volume 6.1L, Neutrophils (%) (Auto) 84.6H, Lymphocytes (%) (Auto) 11.2L, Monocytes (%) (Auto) 3.2, Eosinophils (%) (Auto) 0.4, Basophils (%) (Auto) 0.6, Sodium Level 147H, Potassium Level 5.5H, Chloride Level 109H, Carbon Dioxide Level 32, Anion Gap 7, Blood Urea Nitrogen 61H, Creatinine 2.5H, Estimat Glomerular Filtration Rate 26.1, Glucose Level 370H, Calcium Level 9.0, Magnesium Level 2.4, Total Bilirubin 0.2, Aspartate Amino Transf (AST/SGOT) 28, Alanine Aminotransferase (ALT/SGPT) 51, Alkaline Phosphatase 123H, Pro-B-Type Natriuretic Peptide 4785H, Total Protein 7.3, Albumin 1.8L, Globulin 5.5, Albumin/Globulin Ratio 0.3L Current Medications Medications (Trade) Dose Ordered Sig/Willem Route PRN Reason Start Time Stop Time Status Last Admin Dose Admin Acetaminophen (Tylenol) 500 mg Q6H PRN ORAL MILD PAIN (1-4). NTE 3GM/DAY 06/30/17 15:00 07/30/17 14:59 Acetaminophen (Tylenol) 650 mg DAILY PRN ORAL Temp > 100.5 06/30/17 09:00 07/26/17 20:59 06/30/17 20:35 Acetaminophen (Tylenol) 650 mg Q6H PRN ORAL MODERATE PAIN (5-7) 06/30/17 15:00 07/30/17 14:59 Acetylcysteine (Mucomyst) 100 mg Q4HRT HHN 06/30/17 23:00 07/30/17 22:59 Albuterol/ Ipratropium (Albuterol/ Ipratropium) 3 ml Q4H PRN HHN Shortness of Breath 06/30/17 01:00 07/01/17 20:59 06/30/17 02:17 Amlodipine Besylate (Norvasc) 10 mg DAILY GT 06/30/17 09:00 07/21/17 08:59 06/30/17 08:48 Aspirin (ASA) 81 mg DAILY ORAL 06/30/17 09:00 07/30/17 08:59 06/30/17 08:48 Bisacodyl (Dulcolax) 10 mg DAILYPRN PRN RECTAL constipationIF MOM INEFFECTIVE 06/30/17 21:00 07/26/17 20:59 Cefepime HCl 2 gm/ Dextrose 55 ml @ 110 mls/hr Q24H IVPB 06/30/17 06:00 07/07/17 05:59 07/01/17 05:32 Clonidine HCl (Catapres Tab) 0.1 mg Q4H PRN GT bp of 160 syst and above 06/30/17 01:00 07/21/17 16:59 Collagenase (Santyl) 1 applic DAILY TOPIC 06/30/17 09:00 07/29/17 08:59 06/30/17 08:49 Dextrose (Dextrose 50%) STAT PRN IV Hypoglycemia 06/30/17 21:00 07/26/17 20:59 Famotidine (Pepcid) 20 mg DAILY ORAL 06/30/17 09:00 07/22/17 08:59 06/30/17 08:47 Heparin Sodium (Porcine) (Heparin 5000 units/ml) 5,000 units EVERY 12 HOURS SUBQ 06/30/17 09:00 07/21/17 08:59 06/30/17 20:38 Hydralazine HCl (Apresoline) 25 mg Q8HR GT 06/30/17 14:00 07/21/17 17:59 07/01/17 05:19 Insulin Aspart (NovoLOG) EVERY 6 HOURS SUBQ 06/30/17 00:45 07/21/17 06:29 07/01/17 05:35 Insulin Detemir (Levemir) 10 units QHS SUBQ 06/30/17 21:00 07/30/17 20:59 06/30/17 20:37 Levothyroxine Sodium (Synthroid) 50 mcg ACBREAKFAST GT 06/30/17 06:30 07/21/17 06:29 07/01/17 05:32 Metoprolol Tartrate (Lopressor) 50 mg EVERY 12 HOURS GT 06/30/17 09:00 07/21/17 08:59 06/30/17 20:34 Nitroglycerin (Ntg) 0.4 mg Q5M PRN SL CHEST PAIN 06/30/17 00:45 07/21/17 20:59 Sodium Chloride 1,000 ml @ 125 mls/hr Q8H IV 06/30/17 22:45 07/30/17 22:44 07/01/17 07:07 JESSE ZAVALA Jul 01, 2017 08:53
[2017-07-01] MEDS: Metoprolol Tartrate 50mg tab GT SCH ×2 (09:58→21:20)
[2017-07-01] MEDS: Aspirin Baby 81mg ORAL SCH (09:59)
[2017-07-01] MEDS: Heparin 5000 units/ml inj SUBQ SCH ×2 (10:00→21:26)
[2017-07-01] MEDS: Albuterol/Ipratropium 3ml neb HHN PRN ×3 (11:10→19:57)
[2017-07-01 12:13] VITALS: BP 106/54
--- NOTE | 2017-07-01 13:00 | Diagnostic Imaging Report ---
Indication: Dyspnea Technique: XRAY Chest 1v Comparison: 06/30/2017 Findings: Heart size and mediastinal contours are stable. Significant improvement of aeration of the left lung compared to the prior exam with decreased hazy opacities. This may related to decreased pleural effusion. Question interval thoracentesis. There is no pneumothorax. There is persistent small left pleural effusion and dense retrocardiac atelectasis/consolidation Impression: Significant improvement of aeration in the left lung with decreased pleural fluid. Small pleural effusion and dense retrocardiac atelectasis/consolidation persists. No definite pneumothorax.
--- NOTE | 2017-07-01 13:10 | Nephrology Progress Note ---
Assessment/Plan Problem List: (1) Acute renal failure (2) Respiratory failure requiring intubation (3) Urosepsis (4) Anemia Assessment: worsening (5) Hypoalbuminemia Assessment BOOGIE (acute kidney injury), Cr gradually rising again H&H lower Respiratory failure requiring intubation Respiratory failure with hypoxia Aspiration pneumonia, Urosepsis Anemia ACS (acute coronary syndrome), Non St Elevation NM CHF (congestive heart failure) Acute encephalopathy GT feeding LLL atelectesis worsening, Plan plan on bipap now will need tracheostomy to prevent worsening atelectaisis transfused avoid Nephrotoxics monitor renal parameters Keep BP and BS in check Optimize pulmonary and cardiac support Subjective ROS Limited/Unobtainable: No Constitutional: Reports: malaise Objective Objective Last 24 Hour Vital Signs Date Time Temp Pulse Resp B/P (MAP) Pulse Ox O2 Delivery O2 Flow Rate FiO2 07/01/17 12:16 50 07/01/17 12:13 99.1 80 20 106/54 100 Bi-pap 40 07/01/17 11:19 89 19 98 Bi-pap 40 07/01/17 11:10 87 24 99 Bi-pap 40 07/01/17 11:10 96 16 100 Facial 50 07/01/17 09:58 104 135/68 07/01/17 09:58 104 135/68 07/01/17 09:15 96 16 100 Facial 50 07/01/17 08:00 115 07/01/17 08:00 50 07/01/17 08:00 98.8 104 22 135/68 100 Bi-pap 50 07/01/17 07:15 98 18 Bi-pap 70 07/01/17 07:15 98 16 100 Facial 70 07/01/17 07:15 100 Bi-pap 70 07/01/17 07:15 Bi-pap 70 07/01/17 05:30 111 24 97 Facial 70 07/01/17 05:19 142/74 07/01/17 04:20 Bi-pap 07/01/17 04:18 Bi-pap 07/01/17 04:00 98.1 117 24 143/79 100 Non-Rebreather 15.0 07/01/17 03:30 116 31 98 Facial 70 07/01/17 01:30 115 28 98 Facial 70 07/01/17 00:00 97.5 108 22 142/74 100 Non-Rebreather 15.0 07/01/17 00:00 105 06/30/17 23:08 111 30 96 Facial 70 06/30/17 21:34 100.4 06/30/17 21:25 134/76 06/30/17 20:34 133 134/76 06/30/17 20:00 100.8 121 28 134/76 100 Non-Rebreather 15.0 06/30/17 20:00 94 Non-Rebreather 15.0 100 06/30/17 20:00 Non-Rebreather 15.0 100 06/30/17 20:00 125 06/30/17 20:00 133 24 Non-Rebreather 15.0 100 06/30/17 16:00 135 06/30/17 16:00 99.9 130 19 153/80 94 Nasal Cannula 4.0 06/30/17 14:07 143/71 Intake and Output 06/30/17 07/01/17 19:00 07:00 Intake Total 1156.667 ml 343.75 ml Output Total 1650 ml 1000 ml Balance -493.333 ml -656.25 ml Free Water 50 ml IV Total 676.667 ml 343.75 ml Tube Feeding 330 ml Other 100 ml Output Urine Total 1650 ml 1000 ml Laboratory Tests 06/30/17 18:02: Arterial Blood pH 7.496H, Arterial Blood Partial Pressure CO2 41.7, Arterial Blood Partial Pressure O2 36.0*L, Arterial Blood HCO3 31.5H, Arterial Blood Oxygen Saturation 72.4L, Arterial Blood Base Excess 7.6, Khang Test Positive 07/01/17 03:40: White Blood Count 10.1, Red Blood Count 2.99L, Hemoglobin 9.2L, Hematocrit 28.2L , Mean Corpuscular Volume 94, Mean Corpuscular Hemoglobin 30.8, Mean Corpuscular Hemoglobin Concent 32.7, Red Cell Distribution Width 17.0H, Platelet Count 451H, Mean Platelet Volume 6.1L, Neutrophils (%) (Auto) 84.6H, Lymphocytes (%) (Auto) 11.2L, Monocytes (%) (Auto) 3.2, Eosinophils (%) (Auto) 0.4, Basophils (%) (Auto) 0.6, Sodium Level 147H, Potassium Level 5.5H, Chloride Level 109H, Carbon Dioxide Level 32, Anion Gap 7, Blood Urea Nitrogen 61H, Creatinine 2.5H, Estimat Glomerular Filtration Rate 26.1, Glucose Level 370H, Calcium Level 9.0, Magnesium Level 2.4, Total Bilirubin 0.2, Aspartate Amino Transf (AST/SGOT) 28, Alanine Aminotransferase (ALT/SGPT) 51, Alkaline Phosphatase 123H, Pro-B-Type Natriuretic Peptide 4785H, Total Protein 7.3, Albumin 1.8L, Globulin 5.5, Albumin/Globulin Ratio 0.3L Height (Feet): 5 Height (Inches): 9.00 Weight (Pounds): 172 EENT: other - on BIPAP Respiratory/Chest: decreased breath sounds Abdomen: distended Objective no other changes GARCÍA READ Jul 01, 2017 13:09
[2017-07-01 16:00] VITALS: BP 150/80
[2017-07-01 20:00] VITALS: BP 131/76
[2017-07-01] MEDS ORDERED: 1/2 NS 1000ml IV ONE (21:17)
[2017-07-01] MEDS: Levemir Flexpen SUBQ SCH (21:26)
[2017-07-01] MEDS ORDERED: Ipratropium 0.02% Inh Soln 2.5ml UD HHN SCH (23:00)
[2017-07-02] VITALS: BP 153/74
[2017-07-02] MEDS: NovoLOG Insulin Flexpen SUBQ SCH ×4 (00:37→17:56)
[2017-07-02] MEDS: Albuterol/Ipratropium 3ml neb HHN SCH ×6 (03:00→22:47)
[2017-07-02 04:00] VITALS: BP 146/97
[2017-07-02] MEDS: HydrALAZINE 25mg tab GT SCH ×3 (06:03→21:26)
[2017-07-02] MEDS: Cefepime HCl 2 GM in D5W 55 ML IVPB SCH (06:04)
[2017-07-02 06:58] LABS: BASOPHILS % (AUTO) 0.4 % (0.0-2.0); EOSINOPHILS % (AUTO) 2.7 % (0.0-3.0); HEMATOCRIT 28.6 % (42.0-52.0); LYMPHOCYTES % (AUTO) 12.2 % (20.0-45.0); MEAN CORPUSCULAR VOLUME 93 FL (80-99); MONOCYTES % (AUTO) 3.8 % (1.0-10.0); PLATELET COUNT 524 K/UL (150-450); RED BLOOD COUNT 3.08 M/UL (4.70-6.10); RED CELL DISTRIBUTION WIDTH 16.9 % (11.6-14.8); WHITE BLOOD COUNT 7.6 K/UL (4.8-10.8)
[2017-07-02 07:25] LABS: ALANINE AMINOTRANSFERASE 44 U/L (12-78); ALBUMIN 1.7 G/DL (3.4-5.0); ALBUMIN/GLOBULIN RATIO 0.3 (1.0-2.7); ALKALINE PHOSPHATASE 113 U/L (46-116); ANION GAP 9 mmol/L (5-15); ASPARTATE AMINO TRANSFERASE 24 U/L (15-37); BILIRUBIN,TOTAL 0.2 MG/DL (0.2-1.0); BLOOD UREA NITROGEN 55 mg/dL (7-18); CARBON DIOXIDE 30 MMOL/L (21-32); CHLORIDE 111 MMOL/L (98-107); CREATININE 2.2 MG/DL (0.55-1.30); POTASSIUM 3.9 MMOL/L (3.5-5.1); SODIUM 150 MMOL/L (136-145)
[2017-07-02 08:00] VITALS: BP 155/74
--- NOTE | 2017-07-02 08:00 | Progress Note ---
DATE: 06/30/2017 SUBJECTIVE: Last night, the patient's condition deteriorated requiring nonrebreathing mask and heart rate went to 130 to 140 and respiratory rate went to 25 to 30 and required prolonged inhalation therapy and respiratory therapy, who returned to baseline. He was transferred to [facility]. Today, he had several episodes of the same nature, the last one of them in the evening in which the heart rate went to 140, respiratory rate between 30 to 33, O2 saturation dropped to 72. He received respiratory therapy with albuterol with 01:09 normal inhalation therapy. Mucomyst 10% was added to the inhalation and the patient's condition moderately improved. Arterial blood gases taken revealed pH is 7.49, pCO2 of 41, pO2 of 36, O2 sat of 72, and bicarb of 31. OBJECTIVE: VITAL SIGNS: Following respiratory therapy and intense suction, the patient's condition has improved and blood pressure now is 154/76, his pulse is 94, respirations 24, and temperature is 99.9. HEENT: Eyes were normal. ENT, mucous membranes were moist and intact. NECK: Supple with no JVD without lymph nodes. LUNGS: There is bilateral rhonchi at both bases. PULMONARY: Abundant copious secretion greenish thick. HEART: Normal sounds with regular beats. He is in regular sinus now. ABDOMEN: Soft and nontender with normal bowel sounds. EXTREMITIES: Warm without cyanosis, clubbing, or edema. LABORATORY DATA: His hemoglobin is 9.6, hematocrit was 30.3 with MCV of 95, WBC of 7.1 and platelets is 427,000. His BUN and creatinine is 51 and 2.2 respectively. His sodium is 148, potassium 5.4, chloride 108, CO2 is 34. His calcium is 9. SGOT and SGPT were normal. His BNP remains at 4100. His albumin is 1.8 and total protein is 7.2. Chest x-ray today revealed there is a mediastinal shift to the left suggesting left collapse and haziness of the left hemithorax. IMPRESSION AND PLAN: The patient's condition is still unstable. He required intensive respiratory therapy every four hours with albuterol sulfate and ipratropium bromide inhalation therapy. In addition, he, developed acute renal failure. He has been seen today by the assembly leader and 05:08 acute renal failure and hyperkalemia. Repeat laboratory tests will be done in the morning. The case has been discussed with the medical staff and respiratory therapist. Martina Morales M.D. DR: HARDY JOB#: [id number] CC:
[2017-07-02] MEDS: Aspirin Baby 81mg ORAL SCH (09:15)
[2017-07-02] MEDS: Metoprolol Tartrate 50mg tab GT SCH ×2 (09:15→21:25)
[2017-07-02] MEDS: Heparin 5000 units/ml inj SUBQ SCH ×2 (09:18→21:27)
--- NOTE | 2017-07-02 09:35 | Diagnostic Imaging Report ---
Indication: Shortness of breath Technique: XRAY Chest 1v Comparison: 07/01/2017 Findings: Heart size and mediastinal contours are stable. There is slight increased haziness of the pulmonary vascularity possibly reflective of development of mild interstitial edema/fluid overload. There is no pneumothorax or pleural effusion bilaterally. There is patchy left suprahilar airspace opacity. No acute osseous abnormality seen. Impression: Slight interval increased haziness of the pulmonary vascularity possibly reflecting development of mild interstitial edema/fluid overload. Apparent patchy left suprahilar airspace opacity.
--- NOTE | 2017-07-02 09:56 | Pulmonology Progress Note ---
Assessment/Plan Problems: (1) CHF (congestive heart failure) (2) Aspiration pneumonia (3) Feeding by G-tube (4) Acute renal failure (5) History of CVA (cerebrovascular accident) (6) BOOGIE (acute kidney injury) Assessment/Plan LLL atelectasis resolved off bipap now renal failure stabel check electrolytes, on daily Kcl check eclectrolytes Subjective Interval Events: on face mask Allergies: Coded Allergies: No Known Allergies (Unverified , 05/11/17) Objective Last 24 Hour Vital Signs Date Time Temp Pulse Resp B/P (MAP) Pulse Ox O2 Delivery O2 Flow Rate FiO2 07/02/17 09:15 104 155/74 07/02/17 09:15 104 155/74 07/02/17 08:10 110 07/02/17 08:00 97.2 104 21 155/74 100 Simple Mask 5.0 07/02/17 07:44 88 22 98 Simple Mask 5.0 40 07/02/17 07:38 88 22 40 07/02/17 07:38 98 Simple Mask 5.0 40 07/02/17 07:38 Simple Mask 40 07/02/17 07:38 40 07/02/17 07:38 88 22 98 Simple Mask 5.0 40 07/02/17 06:03 139/91 07/02/17 04:37 109 20 98 Simple Mask 5.0 40 07/02/17 04:00 119 07/02/17 04:00 98.2 80 20 146/97 97 Simple Mask 5.0 07/02/17 03:57 40 07/02/17 03:56 109 20 98 Simple Mask 5.0 40 07/02/17 00:00 109 07/02/17 00:00 98.6 74 20 153/74 98 Simple Mask 5.0 07/01/17 23:16 85 26 96 Simple Mask 5.0 40 07/01/17 23:01 40 07/01/17 23:01 85 26 96 Simple Mask 5.0 40 07/01/17 21:20 131/76 07/01/17 21:20 85 131/76 07/01/17 20:41 85 26 96 Simple Mask 5.0 40 07/01/17 20:00 98.1 116 21 131/76 96 Simple Mask 5.0 07/01/17 20:00 115 07/01/17 20:00 40 07/01/17 19:59 85 26 99 Bi-pap 40 07/01/17 19:58 89 26 99 5.0 40 07/01/17 19:46 Bi-pap 40 07/01/17 19:45 99 Bi-pap 40 07/01/17 19:44 89 26 40 07/01/17 18:30 99.0 07/01/17 17:20 110 27 97 Facial 40 07/01/17 17:00 113 07/01/17 16:00 40 07/01/17 16:00 100.2 116 21 150/80 96 Nasal Cannula 5.0 07/01/17 14:59 86 20 98 Simple Mask 5.0 40 07/01/17 14:59 84 20 99 Simple Mask 5.0 40 07/01/17 14:59 86 20 98 Facial 40 07/01/17 14:00 106/54 07/01/17 13:25 89 20 98 Facial 40 07/01/17 12:16 50 07/01/17 12:13 99.1 80 20 106/54 100 Bi-pap 40 07/01/17 11:19 89 19 98 Bi-pap 40 07/01/17 11:10 87 24 99 Bi-pap 40 07/01/17 11:10 96 16 100 Facial 50 07/01/17 09:58 104 135/68 07/01/17 09:58 104 135/68 Intake and Output 07/01/17 07/02/17 19:00 07:00 Intake Total 1125 ml 1660 ml Output Total 1250 ml 100 ml Balance -125 ml 1560 ml Free Water 100 ml IV Total 125 ml 1030 ml Tube Feeding 720 ml 600 ml Other 180 ml 30 ml Output Urine Total 1000 ml Stool Total 250 ml 100 ml Objective General Appearance: no acute distress HEENT: normocephalic, atraumatic Respiratory/Chest: lungs clear, no respiratory distress, no accessory muscle use Cardiovascular: normal rate, no JVD, CL-femoral intact Abdomen: normal bowel sounds, soft, non tender Extremities: no edema Neurologic/Psychiatric: alert, responsive Musculoskeletal: normal muscle bulk Laboratory Tests 07/02/17 05:50: White Blood Count 7.6, Red Blood Count 3.08L, Hemoglobin 9.0L, Hematocrit 28.6L , Mean Corpuscular Volume 93, Mean Corpuscular Hemoglobin 29.3, Mean Corpuscular Hemoglobin Concent 31.5L, Red Cell Distribution Width 16.9H, Platelet Count 524H, Mean Platelet Volume 6.2L, Neutrophils (%) (Auto) 81.0H, Lymphocytes (%) (Auto) 12.2L, Monocytes (%) (Auto) 3.8, Eosinophils (%) (Auto) 2.7, Basophils (%) (Auto) 0.4, Sodium Level 150H, Potassium Level 3.9, Chloride Level 111H, Carbon Dioxide Level 30, Anion Gap 9, Blood Urea Nitrogen 55H, Creatinine 2.2H, Estimat Glomerular Filtration Rate 30.3, Glucose Level 269#H, Calcium Level 9.0, Total Bilirubin 0.2, Aspartate Amino Transf (AST/SGOT) 24, Alanine Aminotransferase (ALT/SGPT) 44, Alkaline Phosphatase 113, Pro-B-Type Natriuretic Peptide 3809H, Total Protein 7.3, Albumin 1.7L, Globulin 5.6, Albumin/Globulin Ratio 0.3L Current Medications Medications (Trade) Dose Ordered Sig/Willem Route PRN Reason Start Time Stop Time Status Last Admin Dose Admin Acetaminophen (Tylenol) 500 mg Q6H PRN ORAL MILD PAIN (1-4). NTE 3GM/DAY 06/30/17 15:00 07/30/17 14:59 Acetaminophen (Tylenol) 650 mg DAILY PRN ORAL Temp > 100.5 06/30/17 09:00 07/26/17 20:59 07/01/17 17:31 Acetaminophen (Tylenol) 650 mg Q6H PRN ORAL MODERATE PAIN (5-7) 06/30/17 15:00 07/30/17 14:59 Acetylcysteine (Mucomyst) 100 mg Q4HRT [facility] 06/30/17 23:00 07/30/17 22:59 07/02/17 07:39 Albuterol/ Ipratropium (Albuterol/ Ipratropium) 3 ml Q4HRT [facility] 07/02/17 03:00 07/07/17 02:59 07/02/17 07:38 Amlodipine Besylate (Norvasc) 10 mg DAILY GT 06/30/17 09:00 07/21/17 08:59 07/02/17 09:15 Aspirin (ASA) 81 mg DAILY ORAL 06/30/17 09:00 07/30/17 08:59 07/02/17 09:15 Bisacodyl (Dulcolax) 10 mg DAILYPRN PRN RECTAL constipationIF MOM INEFFECTIVE 06/30/17 21:00 07/26/17 20:59 Cefepime HCl 2 gm/ Dextrose 55 ml @ 110 mls/hr Q24H IVPB 06/30/17 06:00 07/07/17 05:59 07/02/17 06:04 Clonidine HCl (Catapres Tab) 0.1 mg Q4H PRN GT bp of 160 syst and above 06/30/17 01:00 07/21/17 16:59 Collagenase (Santyl) 1 applic DAILY TOPIC 06/30/17 09:00 07/29/17 08:59 07/02/17 09:18 Dextrose (Dextrose 50%) STAT PRN IV Hypoglycemia 06/30/17 21:00 07/26/17 20:59 Famotidine (Pepcid) 20 mg DAILY ORAL 06/30/17 09:00 07/22/17 08:59 07/02/17 09:14 Heparin Sodium (Porcine) (Heparin 5000 units/ml) 5,000 units EVERY 12 HOURS SUBQ 06/30/17 09:00 07/21/17 08:59 07/02/17 09:18 Hydralazine HCl (Apresoline) 25 mg Q8HR GT 06/30/17 14:00 07/21/17 17:59 07/02/17 06:03 Insulin Aspart (NovoLOG) EVERY 6 HOURS SUBQ 06/30/17 00:45 07/21/17 06:29 07/02/17 06:06 Insulin Detemir (Levemir) 10 units QHS SUBQ 06/30/17 21:00 07/30/17 20:59 07/01/17 21:26 Levothyroxine Sodium (Synthroid) 50 mcg ACBREAKFAST GT 06/30/17 06:30 07/21/17 06:29 07/02/17 06:03 Metoprolol Tartrate (Lopressor) 50 mg EVERY 12 HOURS GT 06/30/17 09:00 07/21/17 08:59 07/02/17 09:15 Nitroglycerin (Ntg) 0.4 mg Q5M PRN SL CHEST PAIN 06/30/17 00:45 07/21/17 20:59 Sodium Chloride 1,000 ml @ 125 mls/hr Q8H IV 06/30/17 22:45 07/30/17 22:44 07/02/17 06:52 JESSE ZAVALA Jul 02, 2017 09:56
--- NOTE | 2017-07-02 11:10 | Cardiology Report ---
APPROVED REPORT EXAM: Two-dimensional and M-mode echocardiogram with Doppler and color Doppler. INDICATION LV FUNCTION Technically difficult study due to poor acoustical windows. M-mode measurements of left ventricle not obtainable due to cardiac position (angle) Normal left ventricular chamber size, systolic function and wall motion to extent visualized. M-mode measurements of left ventricle not obtainable due to cardiac position (angle) Left ventricular ejection fraction estimated to be 60 %. No evidenceof left ventricular hypertrophy. No evidence of pericardial effusion. All other cardiac chamber sizes are within normal limits. Focal aortic valve sclerosis with adequate cusp excursion. Thickened mitral valve leaflets with normal excursion. Mitral annulus and aortic root calcification. Pulmonic valve not well visualized. Normal tricuspid valve structure. IVC at normal size with physiologic collapse. A color flow and spectral Doppler study was performed and revealed: No aortic regurgitation. Trace mitral regurgitation. Mitral diastolic velocities suggest reduced left ventricular relaxation c/w mild LV diastolic dysfunction (Grade I ). Tarce tricuspid regurgitation. Tricuspid systolic velocities suggests peak right ventricular systolic pressure of 25 mmHg No Pulmonic regurgitation present.
--- NOTE | 2017-07-02 11:57 | Infectious Diseases Prog Note ---
Assessment/Plan Assessment/Plan A: PSA Pneumonia Sepsis 2ry to HCAP, improving CXR 06/26: Probable mild CHF. Please correlate clinically -CXR 06/22: Lungs and pleural spaces are clear -CXR: There is infiltrate in the left infrahilar region. There is some atelectasis at the right lung base. There is also retrocardiac consolidation -sp cx: +3 MDR PSA (S. Cefepime, Gentamicin/Amikacin) -u./a WBC 5-10, nit neg, leuk est +1, ucx 10-20K C. albicans (colonzier) -rectal wound cx: ESBL E.coli, PsA (colonizers)- no signs of infection 07/22 CoNS bacteremia- suspect contaminant 06/20 +07/22, 06/21 Neg x4 Fever-low grade x q leukocytosis-resolved Lactic acidosis- resolved Recent admission at OSH for sepsis, s/p IV abx (~1 wk [employer]) Cdiff neg 06/25 -Neg: HIV ag/ab, RPR, CrAg serum, FTA-ab Acute hypoxic resp failure s/p intubation 06/20- s/p extubation 06/25 BOOGIE, improving Recent gastritis (dx by EGD) Hx of encephalopathy -05/22 CT head: No evidence of acute intracranial hemorrhage, mass effect or cortical edema. MRI may be obtained for more sensitive evaluation as clinically indicated. Stable chronic infarct in the right frontal lobe. Cerebral and cerebellar atrophy greater than expected for age. Clinical correlation recommended. Mild periventricular hypoattenuation suggestive of chronic ischemic microvascular changes. -previous admission:nical correlation recommended. Mild periventricular hypoattenuation suggestive of chronic ischemic microvascular changes. Small area of right frontal encephalomalacia suggestive of old infarct. -UDS neg -TSH normal -Brain MRI: Chronic and age-related changes. Old right frontal infarct. 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 Plan: -Continue Cefepime d# 10 /14-21 -06/25 SP IV vancomycin #5, Amikacin #5 -1/6 SP Meropenem #3 -1/4 SP Amikacin x1 -Monitor CBC/BMP, temperatures -aspiration precautions - wound care Subjective Allergies: Coded Allergies: No Known Allergies (Unverified , 05/11/17) Subjective low grade fever x 1 Objective Vital Signs Last 24 Hour Vital Signs Date Time Temp Pulse Resp B/P (MAP) Pulse Ox O2 Delivery O2 Flow Rate FiO2 07/02/17 09:15 104 155/74 07/02/17 09:15 104 155/74 07/02/17 08:10 110 07/02/17 08:00 97.2 104 21 155/74 100 Simple Mask 5.0 07/02/17 07:44 88 22 98 Simple Mask 5.0 40 07/02/17 07:38 88 22 40 07/02/17 07:38 98 Simple Mask 5.0 40 07/02/17 07:38 Simple Mask 40 07/02/17 07:38 40 07/02/17 07:38 88 22 98 Simple Mask 5.0 40 07/02/17 06:03 139/91 07/02/17 04:37 109 20 98 Simple Mask 5.0 40 07/02/17 04:00 119 07/02/17 04:00 98.2 80 20 146/97 97 Simple Mask 5.0 07/02/17 03:57 40 07/02/17 03:56 109 20 98 Simple Mask 5.0 40 07/02/17 00:00 109 07/02/17 00:00 98.6 74 20 153/74 98 Simple Mask 5.0 07/01/17 23:16 85 26 96 Simple Mask 5.0 40 07/01/17 23:01 40 07/01/17 23:01 85 26 96 Simple Mask 5.0 40 07/01/17 21:20 131/76 07/01/17 21:20 85 131/76 07/01/17 20:41 85 26 96 Simple Mask 5.0 40 07/01/17 20:00 98.1 116 21 131/76 96 Simple Mask 5.0 07/01/17 20:00 115 07/01/17 20:00 40 07/01/17 19:59 85 26 99 Bi-pap 40 07/01/17 19:58 89 26 99 5.0 40 07/01/17 19:46 Bi-pap 40 07/01/17 19:45 99 Bi-pap 40 07/01/17 19:44 89 26 40 07/01/17 18:30 99.0 07/01/17 17:20 110 27 97 Facial 40 07/01/17 17:00 113 07/01/17 16:00 40 07/01/17 16:00 100.2 116 21 150/80 96 Nasal Cannula 5.0 07/01/17 14:59 86 20 98 Simple Mask 5.0 40 07/01/17 14:59 84 20 99 Simple Mask 5.0 40 07/01/17 14:59 86 20 98 Facial 40 07/01/17 14:00 106/54 07/01/17 13:25 89 20 98 Facial 40 07/01/17 12:16 50 07/01/17 12:13 99.1 80 20 106/54 100 Bi-pap 40 Height (Feet): 5 Height (Inches): 9.00 Weight (Pounds): 171 Respiratory/Chest: normal breath sounds Cardiovascular: normal rate Abdomen: non distended Laboratory Tests Test 07/02/17 05:50 White Blood Count 7.6 K/UL (4.8-10.8) Red Blood Count 3.08 M/UL (4.70-6.10) L Hemoglobin 9.0 G/DL (14.2-18.0) L Hematocrit 28.6 % (42.0-52.0) L Mean Corpuscular Volume 93 FL (80-99) Mean Corpuscular Hemoglobin 29.3 PG (27.0-31.0) Mean Corpuscular Hemoglobin Concent 31.5 G/DL (32.0-36.0) L Red Cell Distribution Width 16.9 % (11.6-14.8) H Platelet Count 524 K/UL (150-450) H Mean Platelet Volume 6.2 FL (6.5-10.1) L Neutrophils (%) (Auto) 81.0 % (45.0-75.0) H Lymphocytes (%) (Auto) 12.2 % (20.0-45.0) L Monocytes (%) (Auto) 3.8 % (1.0-10.0) Eosinophils (%) (Auto) 2.7 % (0.0-3.0) Basophils (%) (Auto) 0.4 % (0.0-2.0) Sodium Level 150 MMOL/L (136-145) H Potassium Level 3.9 MMOL/L (3.5-5.1) Chloride Level 111 MMOL/L (98-107) H Carbon Dioxide Level 30 MMOL/L (21-32) Anion Gap 9 mmol/L (5-15) Blood Urea Nitrogen 55 mg/dL (7-18) H Creatinine 2.2 MG/DL (0.55-1.30) H Estimat Glomerular Filtration Rate 30.3 mL/min (>60) Glucose Level 269 MG/DL (74-106) #H Calcium Level 9.0 MG/DL (8.5-10.1) Total Bilirubin 0.2 MG/DL (0.2-1.0) Aspartate Amino Transf (AST/SGOT) 24 U/L (15-37) Alanine Aminotransferase (ALT/SGPT) 44 U/L (12-78) Alkaline Phosphatase 113 U/L (46-116) Pro-B-Type Natriuretic Peptide 3809 pg/mL (0-125) H Total Protein 7.3 G/DL (6.4-8.2) Albumin 1.7 G/DL (3.4-5.0) L Globulin 5.6 g/dL Albumin/Globulin Ratio 0.3 (1.0-2.7) L Current Medications Medications (Trade) Dose Ordered Sig/Willem Route PRN Reason Start Time Stop Time Status Last Admin Dose Admin Acetaminophen (Tylenol) 500 mg Q6H PRN ORAL MILD PAIN (1-4). NTE 3GM/DAY 06/30/17 15:00 07/30/17 14:59 Acetaminophen (Tylenol) 650 mg DAILY PRN ORAL Temp > 100.5 06/30/17 09:00 07/26/17 20:59 07/01/17 17:31 Acetaminophen (Tylenol) 650 mg Q6H PRN ORAL MODERATE PAIN (5-7) 06/30/17 15:00 07/30/17 14:59 Acetylcysteine (Mucomyst) [address] [facility] 06/30/17 23:00 07/30/17 22:59 07/02/17 07:39 Albuterol/ Ipratropium (Albuterol/ Ipratropium) [address] [facility] 07/02/17 03:00 07/07/17 02:59 07/02/17 07:38 Amlodipine Besylate (Norvasc) 10 mg DAILY GT 06/30/17 09:00 07/21/17 08:59 07/02/17 09:15 Aspirin (ASA) 81 mg DAILY ORAL 06/30/17 09:00 07/30/17 08:59 07/02/17 09:15 Bisacodyl (Dulcolax) 10 mg DAILYPRN PRN RECTAL constipationIF MOM INEFFECTIVE 06/30/17 21:00 07/26/17 20:59 Cefepime HCl 2 gm/ Dextrose 55 ml @ 110 mls/hr Q24H IVPB 06/30/17 06:00 07/07/17 05:59 07/02/17 06:04 Clonidine HCl (Catapres Tab) 0.1 mg Q4H PRN GT bp of 160 syst and above 06/30/17 01:00 07/21/17 16:59 Collagenase (Santyl) 1 applic DAILY TOPIC 06/30/17 09:00 07/29/17 08:59 07/02/17 09:18 Dextrose (Dextrose 50%) STAT PRN IV Hypoglycemia 06/30/17 21:00 07/26/17 20:59 Famotidine (Pepcid) 20 mg DAILY ORAL 06/30/17 09:00 07/22/17 08:59 07/02/17 09:14 Heparin Sodium (Porcine) (Heparin 5000 units/ml) 5,000 units EVERY 12 HOURS SUBQ 06/30/17 09:00 07/21/17 08:59 07/02/17 09:18 Hydralazine HCl (Apresoline) 25 mg Q8HR GT 06/30/17 14:00 07/21/17 17:59 07/02/17 06:03 Insulin Aspart (NovoLOG) EVERY 6 HOURS SUBQ 06/30/17 00:45 07/21/17 06:29 07/02/17 06:06 Insulin Detemir (Levemir) 10 units QHS SUBQ 06/30/17 21:00 07/30/17 20:59 07/01/17 21:26 Levothyroxine Sodium (Synthroid) 50 mcg ACBREAKFAST GT 06/30/17 06:30 07/21/17 06:29 07/02/17 06:03 Metoprolol Tartrate (Lopressor) 50 mg EVERY 12 HOURS GT 06/30/17 09:00 07/21/17 08:59 07/02/17 09:15 Nitroglycerin (Ntg) 0.4 mg Q5M PRN SL CHEST PAIN 06/30/17 00:45 07/21/17 20:59 Sodium Chloride 1,000 ml @ 125 mls/hr Q8H IV 06/30/17 22:45 07/30/17 22:44 07/02/17 06:52 REJI HOANG M.D. Jul 02, 2017 11:57
[2017-07-02 12:00] VITALS: BP 152/56
--- NOTE | 2017-07-02 12:13 | Nephrology Progress Note ---
Assessment/Plan Problem List: (1) Acute renal failure (2) Respiratory failure requiring intubation (3) Urosepsis (4) Anemia Assessment: worsening (5) Hypoalbuminemia Assessment BOOGIE (acute kidney injury), Cr gradually rising again H&H lower Respiratory failure requiring intubation Respiratory failure with hypoxia Aspiration pneumonia, Urosepsis Anemia ACS (acute coronary syndrome), Non St Elevation [place] CHF (congestive heart failure) Acute encephalopathy GT feeding LLL atelectesis worsening, Plan plan on bipap now will need tracheostomy to prevent worsening atelectaisis transfused avoid Nephrotoxics monitor renal parameters Keep BP and BS in check Optimize pulmonary and cardiac support Subjective ROS Limited/Unobtainable: No Objective Objective Last 24 Hour Vital Signs Date Time Temp Pulse Resp B/P (MAP) Pulse Ox O2 Delivery O2 Flow Rate FiO2 07/02/17 09:15 104 155/74 07/02/17 09:15 104 155/74 07/02/17 08:10 110 07/02/17 08:00 97.2 104 21 155/74 100 Simple Mask 5.0 07/02/17 07:44 88 22 98 Simple Mask 5.0 40 07/02/17 07:38 88 22 40 07/02/17 07:38 98 Simple Mask 5.0 40 07/02/17 07:38 Simple Mask 40 07/02/17 07:38 40 07/02/17 07:38 88 22 98 Simple Mask 5.0 40 07/02/17 06:03 139/91 07/02/17 04:37 109 20 98 Simple Mask 5.0 40 07/02/17 04:00 119 07/02/17 04:00 98.2 80 20 146/97 97 Simple Mask 5.0 07/02/17 03:57 40 07/02/17 03:56 109 20 98 Simple Mask 5.0 40 07/02/17 00:00 109 07/02/17 00:00 98.6 74 20 153/74 98 Simple Mask 5.0 07/01/17 23:16 85 26 96 Simple Mask 5.0 40 07/01/17 23:01 40 07/01/17 23:01 85 26 96 Simple Mask 5.0 40 07/01/17 21:20 131/76 07/01/17 21:20 85 131/76 07/01/17 20:41 85 26 96 Simple Mask 5.0 40 07/01/17 20:00 98.1 116 21 131/76 96 Simple Mask 5.0 07/01/17 20:00 115 07/01/17 20:00 40 07/01/17 19:59 85 26 99 Bi-pap 40 07/01/17 19:58 89 26 99 5.0 40 07/01/17 19:46 Bi-pap 40 07/01/17 19:45 99 Bi-pap 40 07/01/17 19:44 89 26 40 07/01/17 18:30 99.0 07/01/17 17:20 110 27 97 Facial 40 07/01/17 17:00 113 07/01/17 16:00 40 07/01/17 16:00 100.2 116 21 150/80 96 Nasal Cannula 5.0 07/01/17 14:59 86 20 98 Simple Mask 5.0 40 07/01/17 14:59 84 20 99 Simple Mask 5.0 40 07/01/17 14:59 86 20 98 Facial 40 07/01/17 14:00 106/54 07/01/17 13:25 89 20 98 Facial 40 07/01/17 12:16 50 07/01/17 12:13 99.1 80 20 106/54 100 Bi-pap 40 Intake and Output 07/01/17 07/02/17 19:00 07:00 Intake Total 1125 ml 1660 ml Output Total 1250 ml 100 ml Balance -125 ml 1560 ml Free Water 100 ml IV Total 125 ml 1030 ml Tube Feeding 720 ml 600 ml Other 180 ml 30 ml Output Urine Total 1000 ml Stool Total 250 ml 100 ml Laboratory Tests 07/02/17 05:50: White Blood Count 7.6, Red Blood Count 3.08L, Hemoglobin 9.0L, Hematocrit 28.6L , Mean Corpuscular Volume 93, Mean Corpuscular Hemoglobin 29.3, Mean Corpuscular Hemoglobin Concent 31.5L, Red Cell Distribution Width 16.9H, Platelet Count 524H, Mean Platelet Volume 6.2L, Neutrophils (%) (Auto) 81.0H, Lymphocytes (%) (Auto) 12.2L, Monocytes (%) (Auto) 3.8, Eosinophils (%) (Auto) 2.7, Basophils (%) (Auto) 0.4, Sodium Level 150H, Potassium Level 3.9, Chloride Level 111H, Carbon Dioxide Level 30, Anion Gap 9, Blood Urea Nitrogen 55H, Creatinine 2.2H, Estimat Glomerular Filtration Rate 30.3, Glucose Level 269#H, Calcium Level 9.0, Total Bilirubin 0.2, Aspartate Amino Transf (AST/SGOT) 24, Alanine Aminotransferase (ALT/SGPT) 44, Alkaline Phosphatase 113, Pro-B-Type Natriuretic Peptide 3809H, Total Protein 7.3, Albumin 1.7L, Globulin 5.6, Albumin/Globulin Ratio 0.3L Height (Feet): 5 Height (Inches): 9.00 Weight (Pounds): 171 General Appearance: no apparent distress, lethargic Objective no other changes GARCÍA READ Jul 02, 2017 12:13
--- NOTE | 2017-07-02 13:30 | Progress Note ---
DATE: 07/01/2017 CARDIOLOGY PROGRESS NOTE SUBJECTIVE: Condition worsened last night with left lower lobe atelectasis and volume loss. The patient was placed on BiPAP. He was tachypneic and tachycardic. OBJECTIVE: VITAL SIGNS: Blood pressure is 142/74, pulse 111, respiratory rate 24, and afebrile. T-max is 100.8 degrees. LUNGS: Rhonchi at the left base. CARDIAC: Regular rhythm. Rapid rate. Normal S1 and S2. ABDOMEN: Soft. EXTREMITIES: Trace edema. LABORATORY DATA: White count is 10 and hemoglobin 9.2. Sodium 147, potassium 5.5, BUN 61, and creatinine 2.5. ABG yesterday 7.49, 42, 36. IMPRESSION: 1. Dysphagia. 2. Aspiration. 3. Hypoxia. 4. Lung collapse. 5. Dehydration. 6. Hyponatremia. 7. Chronic diastolic congestive heart failure. 8. Anemia of chronic kidney disease. 9. [id number] myocardial infarction. PLAN: 1. May need trach. 2. Hold diuresis. 3. Free water replacement. 4. Respiratory hygiene. 5. BiPAP support. 6. Critical and guarded. 7. Remainder of cardiovascular regimen without change at this time. Ulisses Gaston M.D. DR: John JOB#: [id number] CC:
[2017-07-02 16:00] VITALS: BP 158/106
[2017-07-02 20:00] VITALS: BP 152/74
[2017-07-02] MEDS: Levemir Flexpen SUBQ SCH (21:28)
[2017-07-03] VITALS: BP 148/68
--- NOTE | 2017-07-03 00:10 | General Progress Note ---
Assessment/Plan Status: not improved Assessment/Plan #. Anemia secondary to chronic disease. I worked up the patient about a week ago prior to admission in the patient with anemia of chronic disease. --> Hemoglobin goal >7 --> S/P PRBC, no complications. Continue to monitor hgb levels daily. --> Hemoglobin stable since transfusion. No further transfusions needed at the moment. #. Coagulopathy, malnutrition and vitamin K deficiency. --> Closely monitor. On anticoagulation as needed. #. Leukocytosis, likely secondary to underlying infection, sepsis, and antibiotics. --> has resolved, wbc count wnl --> Remains on antibiotics. #. Acute hypoxemia, requiring intubation. #. Acute kidney injury. #. Dysphagia with gastrostomy tube. #. Cerebrovascular accident with right-sided hemiplegia. #. Acute toxic metabolic encephalopathy. #. Hypothyroidism. Subjective Date patient seen: Jul 01, 2017 Constitutional: Denies: no symptoms, chills, diaphoresis, fever, malaise, weakness, other HEENT: Denies: no symptoms, eye pain, blurred vision, tearing, double vision, ear pain, ear discharge, nose pain, nose congestion, throat pain, throat swelling, mouth pain, mouth swelling, other Cardiovascular: Denies: no symptoms, chest pain, edema, irregular heart rate, lightheadedness, palpitations, syncope, other Gastrointestinal/Abdominal: Denies: no symptoms, abdomen distended, abdominal pain, black stools, tarry stools, blood in stool, constipated, diarrhea, difficulty swallowing, nausea, poor appetite, poor fluid intake, rectal bleeding , vomiting, other Genitourinary: Denies: no symptoms, burning, discharge, frequency, flank pain, hematuria, incontinence, pain, urgency, other Hematologic/Lymphatic: Reports: anemia Allergies: Coded Allergies: No Known Allergies (Unverified , 05/11/17) Subjective Poor condition with left lower lobe atelectasis. On bipap support. Remains tachycardic. Objective VS - Last 72 Hours, by Label Date Time Temp Pulse Resp B/P (MAP) Pulse Ox O2 Delivery O2 Flow Rate FiO2 07/02/17 23:05 32 07/02/17 23:05 96 22 99 Nasal Cannula 3.0 32 07/02/17 22:48 96 22 99 Nasal Cannula 3.0 32 07/02/17 21:26 152/74 07/02/17 21:25 103 152/74 07/02/17 20:00 99.7 103 24 152/74 100 Nasal Cannula 4.0 07/02/17 19:22 92 22 98 Nasal Cannula 3.0 32 07/02/17 19:22 32 07/02/17 19:11 Nasal Cannula 3.0 32 07/02/17 19:11 98 Nasal Cannula 3.0 32 07/02/17 19:11 92 22 40 07/02/17 19:11 92 22 98 Nasal Cannula 3.0 32 07/02/17 16:00 99.9 106 24 158/106 97 Nasal Cannula 4.0 07/02/17 16:00 108 07/02/17 15:45 Nasal Cannula 3.0 32 07/02/17 15:45 32 07/02/17 15:45 Nasal Cannula 3.0 32 07/02/17 13:54 152/56 07/02/17 12:00 98.2 86 20 152/56 98 Nasal Cannula 4.0 07/02/17 11:44 97 07/02/17 09:15 104 155/74 07/02/17 09:15 104 155/74 07/02/17 08:10 110 07/02/17 08:00 97.2 104 21 155/74 100 Simple Mask 5.0 07/02/17 07:44 88 22 98 Simple Mask 5.0 40 07/02/17 07:38 88 22 40 07/02/17 07:38 98 Simple Mask 5.0 40 07/02/17 07:38 Simple Mask 40 07/02/17 07:38 40 07/02/17 07:38 88 22 98 Simple Mask 5.0 40 07/02/17 06:03 139/91 07/02/17 04:37 109 20 98 Simple Mask 5.0 40 07/02/17 04:00 119 07/02/17 04:00 98.2 80 20 146/97 97 Simple Mask 5.0 07/02/17 03:57 40 07/02/17 03:56 109 20 98 Simple Mask 5.0 40 07/02/17 00:00 109 07/02/17 00:00 98.6 74 20 153/74 98 Simple Mask 5.0 07/01/17 23:16 85 26 96 Simple Mask 5.0 40 07/01/17 23:01 40 07/01/17 23:01 85 26 96 Simple Mask 5.0 40 07/01/17 21:20 131/76 07/01/17 21:20 85 131/76 07/01/17 20:41 85 26 96 Simple Mask 5.0 40 07/01/17 20:00 98.1 116 21 131/76 96 Simple Mask 5.0 07/01/17 20:00 115 07/01/17 20:00 40 07/01/17 19:59 85 26 99 Bi-pap 40 07/01/17 19:58 89 26 99 5.0 40 07/01/17 19:46 Bi-pap 40 07/01/17 19:45 99 Bi-pap 40 07/01/17 19:44 89 26 40 07/01/17 18:30 99.0 07/01/17 17:20 110 27 97 Facial 40 07/01/17 17:00 113 07/01/17 16:00 40 07/01/17 16:00 100.2 116 21 150/80 96 Nasal Cannula 5.0 07/01/17 14:59 86 20 98 Simple Mask 5.0 40 07/01/17 14:59 84 20 99 Simple Mask 5.0 40 07/01/17 14:59 86 20 98 Facial 40 07/01/17 14:00 106/54 07/01/17 13:25 89 20 98 Facial 40 07/01/17 12:16 50 07/01/17 12:13 99.1 80 20 106/54 100 Bi-pap 40 07/01/17 11:19 89 19 98 Bi-pap 40 07/01/17 11:10 87 24 99 Bi-pap 40 07/01/17 11:10 96 16 100 Facial 50 07/01/17 09:58 104 135/68 07/01/17 09:58 104 135/68 07/01/17 09:15 96 16 100 Facial 50 07/01/17 08:00 115 07/01/17 08:00 50 07/01/17 08:00 98.8 104 22 135/68 100 Bi-pap 50 07/01/17 07:15 98 18 Bi-pap 70 07/01/17 07:15 98 16 100 Facial 70 07/01/17 07:15 100 Bi-pap 70 1/14/18 07:15 Bi-pap 70 07/01/17 05:30 111 24 97 Facial 70 07/01/17 05:19 142/74 07/01/17 04:20 Bi-pap 07/01/17 04:18 Bi-pap 07/01/17 04:00 98.1 117 24 143/79 100 Non-Rebreather 15.0 07/01/17 04:00 116 07/01/17 03:30 116 31 98 Facial 70 07/01/17 01:30 115 28 98 Facial 70 07/01/17 00:00 97.5 108 22 142/74 100 Non-Rebreather 15.0 07/01/17 00:00 105 06/30/17 23:08 111 30 96 Facial 70 06/30/17 21:25 134/76 06/30/17 20:34 133 134/76 06/30/17 20:00 100.8 121 28 134/76 100 Non-Rebreather 15.0 06/30/17 20:00 94 Non-Rebreather 15.0 100 06/30/17 20:00 Non-Rebreather 15.0 100 06/30/17 20:00 125 06/30/17 20:00 133 24 Non-Rebreather 15.0 100 06/30/17 16:00 135 06/30/17 16:00 99.9 130 19 153/80 94 Nasal Cannula 4.0 06/30/17 14:07 143/71 06/30/17 12:00 99.8 110 18 144/73 92 Nasal Cannula 3.0 06/30/17 08:48 114 145/84 06/30/17 08:47 114 145/84 06/30/17 08:00 112 06/30/17 08:00 98.6 114 19 145/84 92 Nasal Cannula 3.0 06/30/17 06:54 Non-Rebreather 15.0 100 06/30/17 06:53 97 Non-Rebreather 15.0 100 06/30/17 06:49 107 18 Non-Rebreather 15.0 100 06/30/17 05:22 130/76 06/30/17 04:00 99.2 114 24 130/76 94 Nasal Cannula 3.0 06/30/17 03:43 113 06/30/17 02:26 108 22 97 Non-Rebreather 15.0 100 06/30/17 02:17 98 22 99 Non-Rebreather 15.0 100 06/30/17 01:30 144/78 Last 24 Hour Vital Signs Date Time Temp Pulse Resp B/P (MAP) Pulse Ox O2 Delivery O2 Flow Rate FiO2 07/02/17 23:05 32 07/02/17 23:05 96 22 99 Nasal Cannula 3.0 32 07/02/17 22:48 96 22 99 Nasal Cannula 3.0 32 07/02/17 21:26 152/74 07/02/17 21:25 103 152/74 07/02/17 20:00 99.7 103 24 152/74 100 Nasal Cannula 4.0 07/02/17 19:22 92 22 98 Nasal Cannula 3.0 32 07/02/17 19:22 32 07/02/17 19:11 Nasal Cannula 3.0 32 07/02/17 19:11 98 Nasal Cannula 3.0 32 07/02/17 19:11 92 22 40 07/02/17 19:11 92 22 98 Nasal Cannula 3.0 32 07/02/17 16:00 99.9 106 24 158/106 97 Nasal Cannula 4.0 07/02/17 16:00 108 07/02/17 15:45 Nasal Cannula 3.0 32 07/02/17 15:45 32 07/02/17 15:45 Nasal Cannula 3.0 32 07/02/17 13:54 152/56 07/02/17 12:00 98.2 86 20 152/56 98 Nasal Cannula 4.0 07/02/17 11:44 97 07/02/17 09:15 104 155/74 07/02/17 09:15 104 155/74 07/02/17 08:10 110 07/02/17 08:00 97.2 104 21 155/74 100 Simple Mask 5.0 07/02/17 07:44 88 22 98 Simple Mask 5.0 40 07/02/17 07:38 88 22 40 07/02/17 07:38 98 Simple Mask 5.0 40 07/02/17 07:38 Simple Mask 40 07/02/17 07:38 40 07/02/17 07:38 88 22 98 Simple Mask 5.0 40 07/02/17 06:03 139/91 07/02/17 04:37 109 20 98 Simple Mask 5.0 40 07/02/17 04:00 119 07/02/17 04:00 98.2 80 20 146/97 97 Simple Mask 5.0 07/02/17 03:57 40 07/02/17 03:56 109 20 98 Simple Mask 5.0 40 Intake and Output 07/02/17 07/03/17 19:00 07:00 Intake Total 2220 ml Output Total 930 ml Balance 1290 ml Free Water 60 ml IV Total 1500 ml Tube Feeding 660 ml Output Urine Total 900 ml Stool Total 30 ml Labs Test 06/30/17 03:35 06/30/17 18:02 07/01/17 03:40 07/02/17 05:50 White Blood Count 7.1 K/UL (4.8-10.8) 10.1 K/UL (4.8-10.8) 7.6 K/UL (4.8-10.8) Red Blood Count 3.20 M/UL (4.70-6.10) 2.99 M/UL (4.70-6.10) 3.08 M/UL (4.70-6.10) Hemoglobin 9.6 G/DL (14.2-18.0) 9.2 G/DL (14.2-18.0) 9.0 G/DL (14.2-18.0) Hematocrit 30.3 % (42.0-52.0) 28.2 % (42.0-52.0) 28.6 % (42.0-52.0) Mean Corpuscular Volume 95 FL (80-99) 94 FL (80-99) 93 FL (80-99) Mean Corpuscular Hemoglobin 30.1 PG (27.0-31.0) 30.8 PG (27.0-31.0) 29.3 PG (27.0-31.0) Mean Corpuscular Hemoglobin Concent 31.8 G/DL (32.0-36.0) 32.7 G/DL (32.0-36.0) 31.5 G/DL (32.0-36.0) Red Cell Distribution Width 16.9 % (11.6-14.8) 17.0 % (11.6-14.8) 16.9 % (11.6-14.8) Platelet Count 427 K/UL (150-450) 451 K/UL (150-450) 524 K/UL (150-450) Mean Platelet Volume 6.3 FL (6.5-10.1) 6.1 FL (6.5-10.1) 6.2 FL (6.5-10.1) Neutrophils (%) (Auto) 79.6 % (45.0-75.0) 84.6 % (45.0-75.0) 81.0 % (45.0-75.0) Lymphocytes (%) (Auto) 14.1 % (20.0-45.0) 11.2 % (20.0-45.0) 12.2 % (20.0-45.0) Monocytes (%) (Auto) 4.2 % (1.0-10.0) 3.2 % (1.0-10.0) 3.8 % (1.0-10.0) Eosinophils (%) (Auto) 1.5 % (0.0-3.0) 0.4 % (0.0-3.0) 2.7 % (0.0-3.0) Basophils (%) (Auto) 0.6 % (0.0-2.0) 0.6 % (0.0-2.0) 0.4 % (0.0-2.0) Sodium Level 148 MMOL/L (136-145) 147 MMOL/L (136-145) 150 MMOL/L (136-145) Potassium Level 5.4 MMOL/L (3.5-5.1) 5.5 MMOL/L (3.5-5.1) 3.9 MMOL/L (3.5-5.1) Chloride Level 108 MMOL/L (98-107) 109 MMOL/L (98-107) 111 MMOL/L (98-107) Carbon Dioxide Level 34 MMOL/L (21-32) 32 MMOL/L (21-32) 30 MMOL/L (21-32) Anion Gap 6 mmol/L (5-15) 7 mmol/L (5-15) 9 mmol/L (5-15) Blood Urea Nitrogen 51 mg/dL (7-18) 61 mg/dL (7-18) 55 mg/dL (7-18) Creatinine 2.2 MG/DL (0.55-1.30) 2.5 MG/DL (0.55-1.30) 2.2 MG/DL (0.55-1.30) Estimat Glomerular Filtration Rate 30.3 mL/min (>60) 26.1 mL/min (>60) 30.3 mL/min (>60) Glucose Level 372 MG/DL (74-106) 370 MG/DL (74-106) 269 MG/DL (74-106) Calcium Level 9.0 MG/DL (8.5-10.1) 9.0 MG/DL (8.5-10.1) 9.0 MG/DL (8.5-10.1) Total Bilirubin 0.2 MG/DL (0.2-1.0) 0.2 MG/DL (0.2-1.0) 0.2 MG/DL (0.2-1.0) Aspartate Amino Transf (AST/SGOT) 34 U/L (15-37) 28 U/L (15-37) 24 U/L (15-37) Alanine Aminotransferase (ALT/SGPT) 59 U/L (12-78) 51 U/L (12-78) 44 U/L (12-78) Alkaline Phosphatase 119 U/L (46-116) 123 U/L (46-116) 113 U/L (46-116) Pro-B-Type Natriuretic Peptide 4127 pg/mL (0-125) 4785 pg/mL (0-125) 3809 pg/mL (0-125) Total Protein 7.2 G/DL (6.4-8.2) 7.3 G/DL (6.4-8.2) 7.3 G/DL (6.4-8.2) Albumin 1.8 G/DL (3.4-5.0) 1.8 G/DL (3.4-5.0) 1.7 G/DL (3.4-5.0) Globulin 5.4 g/dL 5.5 g/dL 5.6 g/dL Albumin/Globulin Ratio 0.3 (1.0-2.7) 0.3 (1.0-2.7) 0.3 (1.0-2.7) Arterial Blood pH 7.496 (7.350-7.450) Arterial Blood Partial Pressure CO2 41.7 mmHg (35.0-45.0) Arterial Blood Partial Pressure O2 36.0 mmHg (75.0-100.0) Arterial Blood HCO3 31.5 mmol/L (22.0-26.0) Arterial Blood Oxygen Saturation 72.4 % (92.0-98.0) Arterial Blood Base Excess 7.6 Khang Test Positive Magnesium Level 2.4 MG/DL (1.8-2.4) Laboratory Tests 07/02/17 05:50: White Blood Count 7.6, Red Blood Count 3.08L, Hemoglobin 9.0L, Hematocrit 28.6L , Mean Corpuscular Volume 93, Mean Corpuscular Hemoglobin 29.3, Mean Corpuscular Hemoglobin Concent 31.5L, Red Cell Distribution Width 16.9H, Platelet Count 524H, Mean Platelet Volume 6.2L, Neutrophils (%) (Auto) 81.0H, Lymphocytes (%) (Auto) 12.2L, Monocytes (%) (Auto) 3.8, Eosinophils (%) (Auto) 2.7, Basophils (%) (Auto) 0.4, Sodium Level 150H, Potassium Level 3.9, Chloride Level 111H, Carbon Dioxide Level 30, Anion Gap 9, Blood Urea Nitrogen 55H, Creatinine 2.2H, Estimat Glomerular Filtration Rate 30.3, Glucose Level 269#H, Calcium Level 9.0, Total Bilirubin 0.2, Aspartate Amino Transf (AST/SGOT) 24, Alanine Aminotransferase (ALT/SGPT) 44, Alkaline Phosphatase 113, Pro-B-Type Natriuretic Peptide 3809H, Total Protein 7.3, Albumin 1.7L, Globulin 5.6, Albumin/Globulin Ratio 0.3L Height (Feet): 5 Height (Inches): 9.00 Weight (Pounds): 171 Dejan Copeland Jul 03, 2017 00:10
[2017-07-03] MEDS: NovoLOG Insulin Flexpen SUBQ SCH ×4 (00:24→17:38)
--- NOTE | 2017-07-03 02:18 | General Progress Note ---
Assessment/Plan Assessment/Plan #. Anemia secondary to chronic disease. I worked up the patient about a week ago prior to admission in the patient with anemia of chronic disease. --> Hemoglobin goal >7 --> S/P PRBC, no complications. Continue to monitor hgb levels daily. --> Hemoglobin stable since transfusion. No further transfusions needed at the moment. #. Coagulopathy, malnutrition and vitamin K deficiency. --> Closely monitor. On anticoagulation as needed. #. Leukocytosis, likely secondary to underlying infection, sepsis, and antibiotics. --> has resolved, wbc count wnl --> Remains on antibiotics. #. Acute hypoxemia, requiring intubation. #. Acute kidney injury. #. Dysphagia with gastrostomy tube. #. Cerebrovascular accident with right-sided hemiplegia. #. Acute toxic metabolic encephalopathy. #. Hypothyroidism. Subjective Date patient seen: Jul 02, 2017 Constitutional: Denies: no symptoms, chills, diaphoresis, fever, malaise, weakness, other HEENT: Denies: no symptoms, eye pain, blurred vision, tearing, double vision, ear pain, ear discharge, nose pain, nose congestion, throat pain, throat swelling, mouth pain, mouth swelling, other Cardiovascular: Denies: no symptoms, chest pain, edema, irregular heart rate, lightheadedness, palpitations, syncope, other Respiratory: Denies: no symptoms, cough, orthopnea, shortness of breath, SOB with excertion, SOB at rest, sputum, stridor, wheezing, other Gastrointestinal/Abdominal: Denies: no symptoms, abdomen distended, abdominal pain, black stools, tarry stools, blood in stool, constipated, diarrhea, difficulty swallowing, nausea, poor appetite, poor fluid intake, rectal bleeding , vomiting, other Genitourinary: Denies: no symptoms, burning, discharge, frequency, flank pain, hematuria, incontinence, pain, urgency, other Allergies: Coded Allergies: No Known Allergies (Unverified , 05/11/17) Subjective On bipap. Tachypneic and tachycardic. Lethargic. Objective Last 24 Hour Vital Signs Date Time Temp Pulse Resp B/P (MAP) Pulse Ox O2 Delivery O2 Flow Rate FiO2 07/03/17 00:00 114 07/03/17 00:00 100.0 100 24 148/68 94 Nasal Cannula 4.0 07/02/17 23:05 32 07/02/17 23:05 96 22 99 Nasal Cannula 3.0 32 07/02/17 22:48 96 22 99 Nasal Cannula 3.0 32 07/02/17 21:26 152/74 07/02/17 21:25 103 152/74 07/02/17 20:00 99.7 103 24 152/74 100 Nasal Cannula 4.0 07/02/17 19:22 92 22 98 Nasal Cannula 3.0 32 07/02/17 19:22 32 07/02/17 19:11 Nasal Cannula 3.0 32 07/02/17 19:11 98 Nasal Cannula 3.0 32 07/02/17 19:11 92 22 40 07/02/17 19:11 92 22 98 Nasal Cannula 3.0 32 07/02/17 16:00 99.9 106 24 158/106 97 Nasal Cannula 4.0 07/02/17 16:00 108 07/02/17 15:45 Nasal Cannula 3.0 32 07/02/17 15:45 32 07/02/17 15:45 Nasal Cannula 3.0 32 07/02/17 13:54 152/56 07/02/17 12:00 98.2 86 20 152/56 98 Nasal Cannula 4.0 07/02/17 11:44 97 07/02/17 09:15 104 155/74 07/02/17 09:15 104 155/74 07/02/17 08:10 110 07/02/17 08:00 97.2 104 21 155/74 100 Simple Mask 5.0 07/02/17 07:44 88 22 98 Simple Mask 5.0 40 07/02/17 07:38 88 22 40 07/02/17 07:38 98 Simple Mask 5.0 40 07/02/17 07:38 Simple Mask 40 07/02/17 07:38 40 07/02/17 07:38 88 22 98 Simple Mask 5.0 40 07/02/17 06:03 139/91 07/02/17 04:37 109 20 98 Simple Mask 5.0 40 07/02/17 04:00 119 07/02/17 04:00 98.2 80 20 146/97 97 Simple Mask 5.0 07/02/17 03:57 40 07/02/17 03:56 109 20 98 Simple Mask 5.0 40 Intake and Output 07/02/17 07/03/17 19:00 07:00 Intake Total 2330 ml 1095 ml Output Total 930 ml Balance 1400 ml 1095 ml Free Water 110 ml 50 ml IV Total 1500 ml 625 ml Tube Feeding 720 ml 420 ml Output Urine Total 900 ml Stool Total 30 ml Laboratory Tests 07/02/17 05:50: White Blood Count 7.6, Red Blood Count 3.08L, Hemoglobin 9.0L, Hematocrit 28.6L , Mean Corpuscular Volume 93, Mean Corpuscular Hemoglobin 29.3, Mean Corpuscular Hemoglobin Concent 31.5L, Red Cell Distribution Width 16.9H, Platelet Count 524H, Mean Platelet Volume 6.2L, Neutrophils (%) (Auto) 81.0H, Lymphocytes (%) (Auto) 12.2L, Monocytes (%) (Auto) 3.8, Eosinophils (%) (Auto) 2.7, Basophils (%) (Auto) 0.4, Sodium Level 150H, Potassium Level 3.9, Chloride Level 111H, Carbon Dioxide Level 30, Anion Gap 9, Blood Urea Nitrogen 55H, Creatinine 2.2H, Estimat Glomerular Filtration Rate 30.3, Glucose Level 269#H, Calcium Level 9.0, Total Bilirubin 0.2, Aspartate Amino Transf (AST/SGOT) 24, Alanine Aminotransferase (ALT/SGPT) 44, Alkaline Phosphatase 113, Pro-B-Type Natriuretic Peptide 3809H, Total Protein 7.3, Albumin 1.7L, Globulin 5.6, Albumin/Globulin Ratio 0.3L Height (Feet): 5 Height (Inches): 9.00 Weight (Pounds): 171 General Appearance: no apparent distress Cardiovascular: tachycardia Dejan Copeland Jul 03, 2017 02:18
[2017-07-03] MEDS: Albuterol/Ipratropium 3ml neb HHN SCH ×6 (03:28→23:01)
[2017-07-03 04:00] VITALS: BP 153/68
[2017-07-03 04:55] LABS: BASOPHILS % (AUTO) 0.7 % (0.0-2.0); EOSINOPHILS % (AUTO) 3.2 % (0.0-3.0); HEMOGLOBIN 8.4 G/DL (14.2-18.0); LYMPHOCYTES % (AUTO) 16.7 % (20.0-45.0); MEAN CORPUSCULAR VOLUME 94 FL (80-99); MONOCYTES % (AUTO) 3.6 % (1.0-10.0); NEUTROPHILS % (AUTO) 75.8 % (45.0-75.0); PLATELET COUNT 522 K/UL (150-450); RED BLOOD COUNT 2.87 M/UL (4.70-6.10); WHITE BLOOD COUNT 7.3 K/UL (4.8-10.8)
--- NOTE | 2017-07-03 05:00 | Progress Note ---
DATE: 07/02/2017 CARDIOLOGY PROGRESS NOTE SUBJECTIVE: The patient's congestion is improved. He is off BiPAP now. Atelectasis and left lung collapse have recovered. OBJECTIVE: VITAL SIGNS: Blood pressure 155/74, pulse 104, and respirations 21. LUNGS: Coarse breath sounds. Scattered rhonchi. HEART: Regular rhythm. Rapid rate. Normal S1, S2. ABDOMEN: Soft. EXTREMITIES: No edema. LABORATORY AND DIAGNOSTIC DATA: Chest x-ray reveals mild increase in pulmonary venous pressures and patchy left suprahilar airspace disease. White count 7.6 and hemoglobin 9. Sodium 150, BUN 55, and creatinine 2.2. Pro-natriuretic peptide 3800. IMPRESSION: 1. Clinically dehydrated with hypernatremia and free water deficit. 2. Worsening renal failure. 3. Severe protein-calorie malnutrition. 4. Recurring aspiration. PLAN: 1. Free water replacement. 2. No diuretics. 3. Respiratory hygiene. 4. Nutrition by feeding tube. 5. Nutritional support. 6. Antihypertensives without change, but p.r.n. dosing available. Ulisses Gaston M.D. DR: GISELLE JOB#: [id number] CC:
[2017-07-03 05:29] LABS: ALANINE AMINOTRANSFERASE 35 U/L (12-78); ALBUMIN 1.7 G/DL (3.4-5.0); ALBUMIN/GLOBULIN RATIO 0.3 (1.0-2.7); ALKALINE PHOSPHATASE 106 U/L (46-116); ANION GAP 8 mmol/L (5-15); ASPARTATE AMINO TRANSFERASE 19 U/L (15-37); BILIRUBIN,TOTAL 0.1 MG/DL (0.2-1.0); BLOOD UREA NITROGEN 50 mg/dL (7-18); CALCIUM 8.6 MG/DL (8.5-10.1); CARBON DIOXIDE 29 MMOL/L (21-32); CHLORIDE 111 MMOL/L (98-107); CREATININE 1.9 MG/DL (0.55-1.30); PHOSPHORUS 3.1 MG/DL (2.5-4.9); POTASSIUM 3.9 MMOL/L (3.5-5.1); SODIUM 148 MMOL/L (136-145)
[2017-07-03] MEDS: Cefepime HCl 2 GM in D5W 55 ML IVPB SCH (05:54)
[2017-07-03] MEDS: HydrALAZINE 25mg tab GT SCH ×3 (06:44→21:31)
[2017-07-03 08:00] VITALS: BP 148/65
[2017-07-03] MEDS: Metoprolol Tartrate 50mg tab GT SCH ×2 (09:02→21:31)
[2017-07-03] MEDS: Aspirin Baby 81mg ORAL SCH (09:02)
[2017-07-03] MEDS: Heparin 5000 units/ml inj SUBQ SCH ×2 (09:04→21:34)
[2017-07-03 12:00] VITALS: BP 135/73
--- NOTE | 2017-07-03 12:28 | Pulmonology Progress Note ---
Assessment/Plan Problems: (1) CHF (congestive heart failure) (2) Aspiration pneumonia (3) Feeding by G-tube (4) Acute renal failure (5) History of CVA (cerebrovascular accident) (6) BOOGIE (acute kidney injury) Assessment/Plan LLL atelectasis resolved off bipap now renal failure iv fluids check eclectrolytes Subjective ROS Limited/Unobtainable: Yes Constitutional: Reports: no symptoms HEENT: Repors: no symptoms Allergies: Coded Allergies: No Known Allergies (Unverified , 05/11/17) Objective Last 24 Hour Vital Signs Date Time Temp Pulse Resp B/P (MAP) Pulse Ox O2 Delivery O2 Flow Rate FiO2 07/03/17 12:00 98.6 95 18 135/73 97 Nasal Cannula 4.0 07/03/17 11:13 85 20 98 Nasal Cannula 3.0 32 07/03/17 11:01 83 18 96 Nasal Cannula 3.0 32 07/03/17 09:02 105 148/65 07/03/17 09:02 105 148/65 07/03/17 08:00 99.4 105 18 148/65 98 Nasal Cannula 4.0 07/03/17 07:37 110 07/03/17 07:02 93 20 99 Nasal Cannula 3.0 32 07/03/17 06:57 Nasal Cannula 3.0 32 07/03/17 06:57 98 Nasal Cannula 3.0 32 07/03/17 06:56 87 20 Nasal Cannula 3.0 32 07/03/17 06:55 87 20 98 Nasal Cannula 3.0 32 07/03/17 06:44 153/68 07/03/17 04:00 106 07/03/17 04:00 99.3 70 24 153/68 94 Nasal Cannula 4.0 07/03/17 03:59 94 22 99 Nasal Cannula 3.0 32 07/03/17 03:30 32 07/03/17 03:29 89 22 99 Nasal Cannula 3.0 32 07/03/17 02:27 98.9 07/03/17 00:00 114 07/03/17 00:00 100.0 100 24 148/68 94 Nasal Cannula 4.0 07/02/17 23:05 32 07/02/17 23:05 96 22 99 Nasal Cannula 3.0 32 07/02/17 22:48 96 22 99 Nasal Cannula 3.0 32 07/02/17 21:26 152/74 07/02/17 21:25 103 152/74 07/02/17 20:00 99.7 103 24 152/74 100 Nasal Cannula 4.0 07/02/17 19:22 92 22 98 Nasal Cannula 3.0 32 07/02/17 19:22 32 07/02/17 19:11 Nasal Cannula 3.0 32 07/02/17 19:11 98 Nasal Cannula 3.0 32 07/02/17 19:11 92 22 40 07/02/17 19:11 92 22 98 Nasal Cannula 3.0 32 07/02/17 16:00 99.9 106 24 158/106 97 Nasal Cannula 4.0 07/02/17 16:00 108 07/02/17 15:45 Nasal Cannula 3.0 32 07/02/17 15:45 32 07/02/17 15:45 Nasal Cannula 3.0 32 07/02/17 13:54 152/56 Intake and Output 07/02/17 07/03/17 19:00 07:00 Intake Total 2330 ml 1385 ml Output Total 930 ml 1900 ml Balance 1400 ml -515 ml Free Water 110 ml 50 ml IV Total 1500 ml 625 ml Tube Feeding 720 ml 660 ml Other 50 ml Output Urine Total 900 ml 1700 ml Stool Total 30 ml 200 ml Objective General Appearance: no acute distress HEENT: normocephalic, atraumatic Respiratory/Chest: lungs clear, no respiratory distress, no accessory muscle use Cardiovascular: normal rate, no JVD, CL-femoral intact Abdomen: normal bowel sounds, soft, non tender Extremities: no edema Neurologic/Psychiatric: alert, responsive Musculoskeletal: normal muscle bulk Laboratory Tests 07/03/17 03:25: White Blood Count 7.3, Red Blood Count 2.87L, Hemoglobin 8.4L, Hematocrit 27.0L , Mean Corpuscular Volume 94, Mean Corpuscular Hemoglobin 29.1, Mean Corpuscular Hemoglobin Concent 31.0L, Red Cell Distribution Width 17.0H, Platelet Count 522H, Mean Platelet Volume 6.5, Neutrophils (%) (Auto) 75.8H, Lymphocytes (%) (Auto) 16.7L, Monocytes (%) (Auto) 3.6, Eosinophils (%) (Auto) 3.2H, Basophils (%) (Auto) 0.7, Sodium Level 148H, Potassium Level 3.9, Chloride Level 111H, Carbon Dioxide Level 29, Anion Gap 8, Blood Urea Nitrogen 50H, Creatinine 1.9H, Estimat Glomerular Filtration Rate 35.9, Glucose Level 236H, Calcium Level 8.6, Phosphorus Level 3.1, Magnesium Level 2.3, Total Bilirubin 0.1L, Aspartate Amino Transf (AST/SGOT) 19, Alanine Aminotransferase ( ALT/SGPT) 35, Alkaline Phosphatase 106, Total Protein 7.1, Albumin 1.7L, Globulin 5.4, Albumin/Globulin Ratio 0.3L Current Medications Medications (Trade) Dose Ordered Sig/Willem Route PRN Reason Start Time Stop Time Status Last Admin Dose Admin Acetaminophen (Tylenol) 500 mg Q6H PRN ORAL MILD PAIN (1-4). NTE 3GM/DAY 06/30/17 15:00 07/30/17 14:59 Acetaminophen (Tylenol) 650 mg DAILY PRN ORAL Temp > 100.5 06/30/17 09:00 07/26/17 20:59 07/03/17 01:28 Acetaminophen (Tylenol) 650 mg Q6H PRN ORAL MODERATE PAIN (5-7) 06/30/17 15:00 07/30/17 14:59 Acetylcysteine (Mucomyst) 100 mg Q4HRT [facility] 07/02/17 15:00 07/30/17 22:59 07/03/17 06:52 Albuterol/ Ipratropium (Albuterol/ Ipratropium) 3 ml Q4HRT [facility] 07/02/17 03:00 07/07/17 02:59 07/03/17 11:00 Amlodipine Besylate (Norvasc) 10 mg DAILY GT 06/30/17 09:00 07/21/17 08:59 07/03/17 09:02 Aspirin (ASA) 81 mg DAILY ORAL 06/30/17 09:00 07/30/17 08:59 07/03/17 09:02 Bisacodyl (Dulcolax) 10 mg DAILYPRN PRN RECTAL constipationIF MOM INEFFECTIVE 06/30/17 21:00 07/26/17 20:59 Cefepime HCl 2 gm/ Dextrose 55 ml @ 110 mls/hr Q24H IVPB 06/30/17 06:00 07/07/17 05:59 07/03/17 05:54 Clonidine HCl (Catapres Tab) 0.1 mg Q4H PRN GT bp of 160 syst and above 06/30/17 01:00 07/21/17 16:59 Collagenase (Santyl) 1 applic DAILY TOPIC 06/30/17 09:00 07/29/17 08:59 07/03/17 09:06 Dextrose (Dextrose 50%) STAT PRN IV Hypoglycemia 06/30/17 21:00 07/26/17 20:59 Famotidine (Pepcid) 20 mg DAILY ORAL 06/30/17 09:00 07/22/17 08:59 07/03/17 09:02 Heparin Sodium (Porcine) (Heparin 5000 units/ml) 5,000 units EVERY 12 HOURS SUBQ 06/30/17 09:00 07/21/17 08:59 07/03/17 09:04 Hydralazine HCl (Apresoline) 25 mg Q8HR GT 06/30/17 14:00 07/21/17 17:59 07/03/17 06:44 Insulin Aspart (NovoLOG) EVERY 6 HOURS SUBQ 06/30/17 00:45 07/21/17 06:29 07/03/17 11:44 Insulin Detemir (Levemir) 10 units QHS SUBQ 06/30/17 21:00 07/30/17 20:59 07/02/17 21:28 Levothyroxine Sodium (Synthroid) 50 mcg ACBREAKFAST GT 06/30/17 06:30 07/21/17 06:29 07/03/17 06:44 Metoprolol Tartrate (Lopressor) 75 mg EVERY 12 HOURS GT 07/03/17 09:00 08/02/17 08:59 07/03/17 09:02 Nitroglycerin (Ntg) 0.4 mg Q5M PRN SL CHEST PAIN 06/30/17 00:45 07/21/17 20:59 Sodium Chloride 1,000 ml @ 125 mls/hr Q8H IV 06/30/17 22:45 07/30/17 22:44 07/03/17 06:44 JESSE ZAVALA Jul 03, 2017 12:28
--- NOTE | 2017-07-03 12:29 | Infectious Diseases Prog Note ---
Assessment/Plan Assessment/Plan A: Fever-low grade PSA Pneumonia Sepsis 2ry to HCAP, improving CXR 06/26: Probable mild CHF. Please correlate clinically -CXR 06/22: Lungs and pleural spaces are clear -CXR: There is infiltrate in the left infrahilar region. There is some atelectasis at the right lung base. There is also retrocardiac consolidation -sp cx: +3 MDR PSA (S. Cefepime, Gentamicin/Amikacin) -u./a WBC 5-10, nit neg, leuk est +1, ucx 10-20K C. albicans (colonzier) -rectal wound cx: ESBL E.coli, PsA (colonizers)- no signs of infection 07/22 CoNS bacteremia- suspect contaminant 06/20 +07/22, 06/21 Neg x4 leukocytosis-resolved Lactic acidosis- resolved Cdiff neg 06/25 -Neg: HIV ag/ab, RPR, CrAg serum, FTA-ab Acute hypoxic resp failure s/p intubation 06/20- s/p extubation 06/25 BOOGIE, improving Recent gastritis (dx by EGD) Hx of encephalopathy -05/22 CT head: No evidence of acute intracranial hemorrhage, mass effect or cortical edema. MRI may be obtained for more sensitive evaluation as clinically indicated. Stable chronic infarct in the right frontal lobe. Cerebral and cerebellar atrophy greater than expected for age. Clinical correlation recommended. Mild periventricular hypoattenuation suggestive of chronic ischemic microvascular changes. -previous admission:nical correlation recommended. Mild periventricular hypoattenuation suggestive of chronic ischemic microvascular changes. Small area of right frontal encephalomalacia suggestive of old infarct. -UDS neg -TSH normal -Brain MRI: Chronic and age-related changes. Old right frontal infarct. 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 Plan: -Continue Cefepime d# /-21 , add Amikacin d# ( w monitor of Cr ) -06/25 SP IV vancomycin #5, Amikacin #5 -6 SP Meropenem #3 -4 SP Amikacin x1 -Monitor CBC/BMP, temperatures -aspiration precautions - wound care Subjective Constitutional: Denies: no symptoms, fever, chills, fatigue, anorexia, drenching sweats, other Allergies: Coded Allergies: No Known Allergies (Unverified , 05/11/17) Subjective low grade fever Objective Vital Signs Last 24 Hour Vital Signs Date Time Temp Pulse Resp B/P (MAP) Pulse Ox O2 Delivery O2 Flow Rate FiO2 07/03/17 12:00 98.6 95 18 135/73 97 Nasal Cannula 4.0 07/03/17 11:13 85 20 98 Nasal Cannula 3.0 32 07/03/17 11:01 83 18 96 Nasal Cannula 3.0 32 07/03/17 09:02 105 148/65 07/03/17 09:02 105 148/65 07/03/17 08:00 99.4 105 18 148/65 98 Nasal Cannula 4.0 07/03/17 07:37 110 07/03/17 07:02 93 20 99 Nasal Cannula 3.0 32 07/03/17 06:57 Nasal Cannula 3.0 32 07/03/17 06:57 98 Nasal Cannula 3.0 32 07/03/17 06:56 87 20 Nasal Cannula 3.0 32 07/03/17 06:55 87 20 98 Nasal Cannula 3.0 32 07/03/17 06:44 153/68 07/03/17 04:00 106 07/03/17 04:00 99.3 70 24 153/68 94 Nasal Cannula 4.0 07/03/17 03:59 94 22 99 Nasal Cannula 3.0 32 07/03/17 03:30 32 07/03/17 03:29 89 22 99 Nasal Cannula 3.0 32 07/03/17 02:27 98.9 07/03/17 00:00 114 07/03/17 00:00 100.0 100 24 148/68 94 Nasal Cannula 4.0 07/02/17 23:05 32 07/02/17 23:05 96 22 99 Nasal Cannula 3.0 32 07/02/17 22:48 96 22 99 Nasal Cannula 3.0 32 07/02/17 21:26 152/74 07/02/17 21:25 103 152/74 07/02/17 20:00 99.7 103 24 152/74 100 Nasal Cannula 4.0 07/02/17 19:22 92 22 98 Nasal Cannula 3.0 32 07/02/17 19:22 32 07/02/17 19:11 Nasal Cannula 3.0 32 07/02/17 19:11 98 Nasal Cannula 3.0 32 07/02/17 19:11 92 22 40 07/02/17 19:11 92 22 98 Nasal Cannula 3.0 32 07/02/17 16:00 99.9 106 24 158/106 97 Nasal Cannula 4.0 07/02/17 16:00 108 07/02/17 15:45 Nasal Cannula 3.0 32 07/02/17 15:45 32 07/02/17 15:45 Nasal Cannula 3.0 32 07/02/17 13:54 152/56 Height (Feet): 5 Height (Inches): 9.00 Weight (Pounds): 172 HEENT: anicteric Respiratory/Chest: lungs clear Cardiovascular: regular rhythm Abdomen: no organomegaly Laboratory Tests Test 07/03/17 03:25 White Blood Count 7.3 K/UL (4.8-10.8) Red Blood Count 2.87 M/UL (4.70-6.10) L Hemoglobin 8.4 G/DL (14.2-18.0) L Hematocrit 27.0 % (42.0-52.0) L Mean Corpuscular Volume 94 FL (80-99) Mean Corpuscular Hemoglobin 29.1 PG (27.0-31.0) Mean Corpuscular Hemoglobin Concent 31.0 G/DL (32.0-36.0) L Red Cell Distribution Width 17.0 % (11.6-14.8) H Platelet Count 522 K/UL (150-450) H Mean Platelet Volume 6.5 FL (6.5-10.1) Neutrophils (%) (Auto) 75.8 % (45.0-75.0) H Lymphocytes (%) (Auto) 16.7 % (20.0-45.0) L Monocytes (%) (Auto) 3.6 % (1.0-10.0) Eosinophils (%) (Auto) 3.2 % (0.0-3.0) H Basophils (%) (Auto) 0.7 % (0.0-2.0) Sodium Level 148 MMOL/L (136-145) H Potassium Level 3.9 MMOL/L (3.5-5.1) Chloride Level 111 MMOL/L (98-107) H Carbon Dioxide Level 29 MMOL/L (21-32) Anion Gap 8 mmol/L (5-15) Blood Urea Nitrogen 50 mg/dL (7-18) H Creatinine 1.9 MG/DL (0.55-1.30) H Estimat Glomerular Filtration Rate 35.9 mL/min (>60) Glucose Level 236 MG/DL (74-106) H Calcium Level 8.6 MG/DL (8.5-10.1) Phosphorus Level 3.1 MG/DL (2.5-4.9) Magnesium Level 2.3 MG/DL (1.8-2.4) Total Bilirubin 0.1 MG/DL (0.2-1.0) L Aspartate Amino Transf (AST/SGOT) 19 U/L (15-37) Alanine Aminotransferase (ALT/SGPT) 35 U/L (12-78) Alkaline Phosphatase 106 U/L (46-116) Total Protein 7.1 G/DL (6.4-8.2) Albumin 1.7 G/DL (3.4-5.0) L Globulin 5.4 g/dL Albumin/Globulin Ratio 0.3 (1.0-2.7) L Current Medications Medications (Trade) Dose Ordered Sig/Willem Route PRN Reason Start Time Stop Time Status Last Admin Dose Admin Acetaminophen (Tylenol) 500 mg Q6H PRN ORAL MILD PAIN (1-4). NTE 3GM/DAY 06/30/17 15:00 07/30/17 14:59 Acetaminophen (Tylenol) 650 mg DAILY PRN ORAL Temp > 100.5 06/30/17 09:00 07/26/17 20:59 07/03/17 01:28 Acetaminophen (Tylenol) 650 mg Q6H PRN ORAL MODERATE PAIN (5-7) 06/30/17 15:00 07/30/17 14:59 Acetylcysteine (Mucomyst) 100 mg Q4HRT [facility] 07/02/17 15:00 07/30/17 22:59 07/03/17 06:52 Albuterol/ Ipratropium (Albuterol/ Ipratropium) 3 ml Q4HRT [facility] 07/02/17 03:00 07/07/17 02:59 1/16/18 11:00 Amlodipine Besylate (Norvasc) 10 mg DAILY GT 06/30/17 09:00 07/21/17 08:59 07/03/17 09:02 Aspirin (ASA) 81 mg DAILY ORAL 06/30/17 09:00 07/30/17 08:59 07/03/17 09:02 Bisacodyl (Dulcolax) 10 mg DAILYPRN PRN RECTAL constipationIF MOM INEFFECTIVE 06/30/17 21:00 07/26/17 20:59 Cefepime HCl 2 gm/ Dextrose 55 ml @ 110 mls/hr Q24H IVPB 06/30/17 06:00 07/07/17 05:59 07/03/17 05:54 Clonidine HCl (Catapres Tab) 0.1 mg Q4H PRN GT bp of 160 syst and above 06/30/17 01:00 07/21/17 16:59 Collagenase (Santyl) 1 applic DAILY TOPIC 06/30/17 09:00 07/29/17 08:59 07/03/17 09:06 Dextrose (Dextrose 50%) STAT PRN IV Hypoglycemia 06/30/17 21:00 07/26/17 20:59 Famotidine (Pepcid) 20 mg DAILY ORAL 06/30/17 09:00 07/22/17 08:59 07/03/17 09:02 Heparin Sodium (Porcine) (Heparin 5000 units/ml) 5,000 units EVERY 12 HOURS SUBQ 06/30/17 09:00 07/21/17 08:59 07/03/17 09:04 Hydralazine HCl (Apresoline) 25 mg Q8HR GT 06/30/17 14:00 07/21/17 17:59 07/03/17 06:44 Insulin Aspart (NovoLOG) EVERY 6 HOURS SUBQ 06/30/17 00:45 07/21/17 06:29 07/03/17 11:44 Insulin Detemir (Levemir) 10 units QHS SUBQ 06/30/17 21:00 07/30/17 20:59 07/02/17 21:28 Levothyroxine Sodium (Synthroid) 50 mcg ACBREAKFAST GT 06/30/17 06:30 07/21/17 06:29 07/03/17 06:44 Metoprolol Tartrate (Lopressor) 75 mg EVERY 12 HOURS GT 07/03/17 09:00 08/02/17 08:59 07/03/17 09:02 Nitroglycerin (Ntg) 0.4 mg Q5M PRN SL CHEST PAIN 06/30/17 00:45 07/21/17 20:59 Sodium Chloride 1,000 ml @ 125 mls/hr Q8H IV 06/30/17 22:45 07/30/17 22:44 07/03/17 06:44 REJI HOANG M.D. Jul 03, 2017 12:29
[2017-07-03] MEDS ORDERED: Amikacin Rx to dose MISC PRN (12:30)
[2017-07-03] MEDS: Amikacin 500 MG in NS 110 ML IV SCH (15:25)
--- NOTE | 2017-07-03 15:53 | Nephrology Progress Note ---
Assessment/Plan Problem List: (1) Acute renal failure (2) Respiratory failure requiring intubation (3) Urosepsis (4) Anemia Assessment: worsening (5) Hypoalbuminemia Assessment BOOGIE (acute kidney injury), Cr 1.9 today , lower H&H lower Respiratory failure requiring intubation Respiratory failure with hypoxia Aspiration pneumonia, Urosepsis Anemia ACS (acute coronary syndrome), Non St Elevation TN CHF (congestive heart failure) Acute encephalopathy GT feeding LLL atelectesis worsening, Plan plan resp support will need tracheostomy to prevent worsening atelectaisis transfused avoid Nephrotoxics monitor renal parameters Keep BP and BS in check Optimize pulmonary and cardiac support Subjective ROS Limited/Unobtainable: No Constitutional: Reports: malaise, weakness Objective Objective Last 24 Hour Vital Signs Date Time Temp Pulse Resp B/P (MAP) Pulse Ox O2 Delivery O2 Flow Rate FiO2 07/03/17 15:45 102 07/03/17 15:11 96 20 99 Nasal Cannula 3.0 32 07/03/17 14:49 98 18 99 Nasal Cannula 3.0 32 07/03/17 13:06 135/73 07/03/17 12:00 95 07/03/17 12:00 98.6 95 18 135/73 97 Nasal Cannula 4.0 07/03/17 11:13 85 20 98 Nasal Cannula 3.0 32 07/03/17 11:01 83 18 96 Nasal Cannula 3.0 32 07/03/17 09:02 105 148/65 07/03/17 09:02 105 148/65 07/03/17 08:00 99.4 105 18 148/65 98 Nasal Cannula 4.0 07/03/17 07:37 110 07/03/17 07:02 93 20 99 Nasal Cannula 3.0 32 07/03/17 06:57 Nasal Cannula 3.0 32 07/03/17 06:57 98 Nasal Cannula 3.0 32 07/03/17 06:56 87 20 Nasal Cannula 3.0 32 07/03/17 06:55 87 20 98 Nasal Cannula 3.0 32 07/03/17 06:44 153/68 07/03/17 04:00 106 07/03/17 04:00 99.3 70 24 153/68 94 Nasal Cannula 4.0 07/03/17 03:59 94 22 99 Nasal Cannula 3.0 32 07/03/17 03:30 32 07/03/17 03:29 89 22 99 Nasal Cannula 3.0 32 07/03/17 02:27 98.9 07/03/17 00:00 114 07/03/17 00:00 100.0 100 24 148/68 94 Nasal Cannula 4.0 07/02/17 23:05 32 07/02/17 23:05 96 22 99 Nasal Cannula 3.0 32 07/02/17 22:48 96 22 99 Nasal Cannula 3.0 32 07/02/17 21:26 152/74 07/02/17 21:25 103 152/74 07/02/17 20:00 99.7 103 24 152/74 100 Nasal Cannula 4.0 07/02/17 19:22 92 22 98 Nasal Cannula 3.0 32 07/02/17 19:22 32 07/02/17 19:11 Nasal Cannula 3.0 32 07/02/17 19:11 98 Nasal Cannula 3.0 32 07/02/17 19:11 92 22 40 07/02/17 19:11 92 22 98 Nasal Cannula 3.0 32 07/02/17 16:00 99.9 106 24 158/106 97 Nasal Cannula 4.0 07/02/17 16:00 108 Intake and Output 07/02/17 07/03/17 18:59 06:59 Intake Total 2125 ml 1570 ml Output Total 980 ml 200 ml Balance 1145 ml 1370 ml Free Water 60 ml 100 ml IV Total 1375 ml 750 ml Tube Feeding 690 ml 720 ml Output Urine Total 900 ml 200 ml Stool Total 80 ml Laboratory Tests 07/03/17 03:25: White Blood Count 7.3, Red Blood Count 2.87L, Hemoglobin 8.4L, Hematocrit 27.0L , Mean Corpuscular Volume 94, Mean Corpuscular Hemoglobin 29.1, Mean Corpuscular Hemoglobin Concent 31.0L, Red Cell Distribution Width 17.0H, Platelet Count 522H, Mean Platelet Volume 6.5, Neutrophils (%) (Auto) 75.8H, Lymphocytes (%) (Auto) 16.7L, Monocytes (%) (Auto) 3.6, Eosinophils (%) (Auto) 3.2H, Basophils (%) (Auto) 0.7, Sodium Level 148H, Potassium Level 3.9, Chloride Level 111H, Carbon Dioxide Level 29, Anion Gap 8, Blood Urea Nitrogen 50H, Creatinine 1.9H, Estimat Glomerular Filtration Rate 35.9, Glucose Level 236H, Calcium Level 8.6, Phosphorus Level 3.1, Magnesium Level 2.3, Total Bilirubin 0.1L, Aspartate Amino Transf (AST/SGOT) 19, Alanine Aminotransferase ( ALT/SGPT) 35, Alkaline Phosphatase 106, Total Protein 7.1, Albumin 1.7L, Globulin 5.4, Albumin/Globulin Ratio 0.3L Height (Feet): 5 Height (Inches): 9.00 Weight (Pounds): 172 General Appearance: no apparent distress, lethargic Cardiovascular: tachycardia Respiratory/Chest: decreased breath sounds Abdomen: distended Objective no other changes GARCÍA READ Jul 03, 2017 15:53
[2017-07-03 16:00] VITALS: BP 133/69
--- NOTE | 2017-07-03 16:30 | Progress Note ---
DATE: 07/02/2017 SUBJECTIVE: The patient remained extubated with pulmonary congestion, but his condition has improved over the last 48 hours. PHYSICAL EXAMINATION: VITAL SIGNS: Blood pressure is 152/74, his pulse is 96, respirations 22, and temperature 99.7 degrees. HEENT: Eyes were normal. ENT, mucous membranes were moist and intact. NECK: Supple with no JVD without lymph nodes. LUNGS: Bilateral rhonchi at both bases more on the right than the left. HEART: Normal sounds with regular beat. There is near tachycardia at rest. ABDOMEN: Soft and nontender with normal bowel sounds. Gastrostomy site is clean. EXTREMITIES: Warm without cyanosis, clubbing, or edema. LABORATORY DATA: Hemoglobin is 9.0, hematocrit 28.6 with MCV of 93, WBC of 7.6, and platelets 524,000. His BUN and creatinine are 55 and 2.2 respectively. It was 62 and 2.5 on 07/02/2017. His sodium is 150, potassium 3.9, chloride 111, CO2 is 30, his calcium is 9.0. SGOT, SGPT and alkaline phosphatase are normal. His Pro-BNP continued to decline to 3800 from 4700 yesterday. His albumin is 1.7. Total protein is 7.3. IMPRESSION AND PLAN: Two days ago, it appeared that the patient has atelectasis that may have lead to tracheostomy; however, upon aggressive treatment of his congestive heart failure, he had evidence of marked improvement in pulmonary function and in pulmonary imaging. There was significant improvement yesterday with aeration of the left lung with decreased pleural fluid and only small pleural effusion. dense retrocardiac atelectasis consolidation persists without fever and without leukocytosis. In addition, the Pro-BNP has declined by 25%. The patient has now moderate congestive heart failure and has left basilar atelectasis, maybe consolidation, immediate need for tracheostomy repeat laboratory tests will be done in the a.m. including chest x-ray . Martina Morales M.D. DR: Keon JOB#: [id number] CC:
[2017-07-03 20:00] VITALS: BP 153/81
[2017-07-03] MEDS: Levemir Flexpen SUBQ SCH (21:35)
--- NOTE | 2017-07-03 22:20 | General Progress Note ---
Assessment/Plan Status: stable Assessment/Plan #. Anemia secondary to chronic disease. I worked up the patient about a week ago prior to admission in the patient with anemia of chronic disease. --> Hemoglobin goal >7 --> S/P PRBC, no complications. Continue to monitor hgb levels daily. --> Hemoglobin stable since transfusion. No further transfusions needed at the moment. #. Coagulopathy, malnutrition and vitamin K deficiency. --> Closely monitor. On anticoagulation as needed. #. Leukocytosis, likely secondary to underlying infection, sepsis, and antibiotics. --> has resolved, wbc count wnl --> Remains on antibiotics. #. Acute hypoxemia, requiring intubation. #. Acute kidney injury. #. Dysphagia with gastrostomy tube. #. Cerebrovascular accident with right-sided hemiplegia. #. Acute toxic metabolic encephalopathy. #. Hypothyroidism. Subjective Date patient seen: Jul 03, 2017 Constitutional: Denies: no symptoms, chills, diaphoresis, fever, malaise, weakness, other HEENT: Denies: no symptoms, eye pain, blurred vision, tearing, double vision, ear pain, ear discharge, nose pain, nose congestion, throat pain, throat swelling, mouth pain, mouth swelling, other Cardiovascular: Denies: no symptoms, chest pain, edema, irregular heart rate, lightheadedness, palpitations, syncope, other Respiratory: Denies: no symptoms, cough, orthopnea, shortness of breath, SOB with excertion, SOB at rest, sputum, stridor, wheezing, other Gastrointestinal/Abdominal: Denies: no symptoms, abdomen distended, abdominal pain, black stools, tarry stools, blood in stool, constipated, diarrhea, difficulty swallowing, nausea, poor appetite, poor fluid intake, rectal bleeding , vomiting, other Genitourinary: Denies: no symptoms, burning, discharge, frequency, flank pain, hematuria, incontinence, pain, urgency, other Neurologic/Psychiatric: Denies: no symptoms, anxiety, depressed, emotional problems, headache, numbness, paresthesia, pre-existing deficit, seizure, tingling, tremors, weakness, other Hematologic/Lymphatic: Reports: anemia Allergies: Coded Allergies: No Known Allergies (Unverified , 05/11/17) Subjective Extubated. Doing better today. Plts high. Objective Last 24 Hour Vital Signs Date Time Temp Pulse Resp B/P (MAP) Pulse Ox O2 Delivery O2 Flow Rate FiO2 07/03/17 21:31 100 153/81 07/03/17 21:31 153/81 07/03/17 20:00 99.4 100 24 153/81 97 Nasal Cannula 4.0 07/03/17 16:00 99.6 99 17 133/69 93 Nasal Cannula 4.0 07/03/17 15:45 102 07/03/17 15:11 96 20 99 Nasal Cannula 3.0 32 07/03/17 14:49 98 18 99 Nasal Cannula 3.0 32 07/03/17 13:06 135/73 07/03/17 12:00 95 07/03/17 12:00 98.6 95 18 135/73 97 Nasal Cannula 4.0 07/03/17 11:13 85 20 98 Nasal Cannula 3.0 32 07/03/17 11:01 83 18 96 Nasal Cannula 3.0 32 07/03/17 09:02 105 148/65 07/03/17 09:02 105 148/65 07/03/17 08:00 99.4 105 18 148/65 98 Nasal Cannula 4.0 07/03/17 07:37 110 07/03/17 07:02 93 20 99 Nasal Cannula 3.0 32 07/03/17 06:57 Nasal Cannula 3.0 32 07/03/17 06:57 98 Nasal Cannula 3.0 32 07/03/17 06:56 87 20 Nasal Cannula 3.0 32 07/03/17 06:55 87 20 98 Nasal Cannula 3.0 32 07/03/17 06:44 153/68 07/03/17 04:00 106 07/03/17 04:00 99.3 70 24 153/68 94 Nasal Cannula 4.0 07/03/17 03:59 94 22 99 Nasal Cannula 3.0 32 07/03/17 03:30 32 07/03/17 03:29 89 22 99 Nasal Cannula 3.0 32 07/03/17 02:27 98.9 07/03/17 00:00 114 07/03/17 00:00 100.0 100 24 148/68 94 Nasal Cannula 4.0 07/02/17 23:05 32 07/02/17 23:05 96 22 99 Nasal Cannula 3.0 32 07/02/17 22:48 96 22 99 Nasal Cannula 3.0 32 Intake and Output 07/02/17 07/03/17 19:00 07:00 Intake Total 2330 ml 1385 ml Output Total 930 ml 1900 ml Balance 1400 ml -515 ml Free Water 110 ml 50 ml IV Total 1500 ml 625 ml Tube Feeding 720 ml 660 ml Other 50 ml Output Urine Total 900 ml 1700 ml Stool Total 30 ml 200 ml Laboratory Tests 07/03/17 03:25: White Blood Count 7.3, Red Blood Count 2.87L, Hemoglobin 8.4L, Hematocrit 27.0L , Mean Corpuscular Volume 94, Mean Corpuscular Hemoglobin 29.1, Mean Corpuscular Hemoglobin Concent 31.0L, Red Cell Distribution Width 17.0H, Platelet Count 522H, Mean Platelet Volume 6.5, Neutrophils (%) (Auto) 75.8H, Lymphocytes (%) (Auto) 16.7L, Monocytes (%) (Auto) 3.6, Eosinophils (%) (Auto) 3.2H, Basophils (%) (Auto) 0.7, Sodium Level 148H, Potassium Level 3.9, Chloride Level 111H, Carbon Dioxide Level 29, Anion Gap 8, Blood Urea Nitrogen 50H, Creatinine 1.9H, Estimat Glomerular Filtration Rate 35.9, Glucose Level 236H, Calcium Level 8.6, Phosphorus Level 3.1, Magnesium Level 2.3, Total Bilirubin 0.1L, Aspartate Amino Transf (AST/SGOT) 19, Alanine Aminotransferase ( ALT/SGPT) 35, Alkaline Phosphatase 106, Total Protein 7.1, Albumin 1.7L, Globulin 5.4, Albumin/Globulin Ratio 0.3L Height (Feet): 5 Height (Inches): 9.00 Weight (Pounds): 172 General Appearance: no apparent distress Cardiovascular: tachycardia Respiratory/Chest: decreased breath sounds Abdomen: non tender Edema: mild edema Dejan Copeland Jul 03, 2017 22:20
[2017-07-04] VITALS: BP 152/85
[2017-07-04] MEDS: Albuterol/Ipratropium 3ml neb HHN SCH ×6 (03:00→23:00)
[2017-07-04 04:00] VITALS: BP 153/85
[2017-07-04 05:37] LABS: BASOPHILS % (AUTO) 0.7 % (0.0-2.0); EOSINOPHILS % (AUTO) 3.9 % (0.0-3.0); HEMATOCRIT 25.4 % (42.0-52.0); LYMPHOCYTES % (AUTO) 14.2 % (20.0-45.0); MEAN CORPUSCULAR VOLUME 93 FL (80-99); MONOCYTES % (AUTO) 3.3 % (1.0-10.0); PLATELET COUNT 524 K/UL (150-450); RED BLOOD COUNT 2.74 M/UL (4.70-6.10); WHITE BLOOD COUNT 6.9 K/UL (4.8-10.8)
[2017-07-04 06:08] LABS: ANION GAP 6 mmol/L (5-15); BLOOD UREA NITROGEN 43 mg/dL (7-18); CALCIUM 8.3 MG/DL (8.5-10.1); CARBON DIOXIDE 29 MMOL/L (21-32); CHLORIDE 110 MMOL/L (98-107); CREATININE 1.7 MG/DL (0.55-1.30); POTASSIUM 3.8 MMOL/L (3.5-5.1); SODIUM 145 MMOL/L (136-145)
[2017-07-04] MEDS: Cefepime HCl 2 GM in D5W 55 ML IVPB SCH (06:20)
[2017-07-04] MEDS: NovoLOG Insulin Flexpen SUBQ SCH ×5 (06:22→23:54)
--- NOTE | 2017-07-04 06:30 | Progress Note ---
DATE: 07/03/2017 CARDIOLOGY PROGRESS NOTE SUBJECTIVE: The patient's atelectasis and lung collapse improved and he is now off BiPAP for the last day. OBJECTIVE: VITAL SIGNS: Blood pressure 135/73, pulse 95, respirations 18, and afebrile. T-max 100. LUNGS: Coarse breath sounds. Scattered rhonchi. HEART: Regular rhythm and rate. Normal S1 and S2. ABDOMEN: Soft. EXTREMITIES: Trace edema. LABORATORY DATA: White count 7.3 and hemoglobin 8.4. Potassium 3.9, sodium 148, chloride 111, bicarbonate 29, BUN 15, and creatinine 1.9. Albumin 1.7. IMPRESSION: 1. Status post respiratory failure. 2. Healthcare-acquired pneumonia. 3. Acute myocardial infarction. 4. Acute on chronic diastolic congestive heart failure. 5. Dehydration. 6. Hyponatremia. 7. Hyperchloremia. 8. Acute on chronic kidney injury. 9. Type 2 diabetes mellitus with significant hyperglycemia. 10. Severe protein-calorie malnutrition. PLAN: 1. Continue free water replacement. 2. No diuretics at this time. 3. Respiratory hygiene. 4. Antimicrobials. 5. Nutrition by feeding tube. 6. DVT and stress ulcer prophylaxis. 7. Continue beta-blockade with titration. 8. Maintain anti-platelet therapy with aspirin. 9. Titrate antihypertensive regimen for optimal blood pressure control. Ulisses Gaston M.D. DR: MARK JOB#: [id number] CC:
[2017-07-04] MEDS: HydrALAZINE 25mg tab GT SCH ×3 (06:35→20:06)
[2017-07-04 08:00] VITALS: BP 150/72
--- NOTE | 2017-07-04 08:30 | Progress Note ---
DATE: 07/03/2017 SUBJECTIVE: The patient is more awake and more alert. Limited eye contact. He has limited attention span. PHYSICAL EXAMINATION: VITAL SIGNS: Blood pressure is 153/81, pulse 87, respirations 18, and temperature 99.4. HEENT: Eyes were normal. ENT, mucous membranes were moist and intact. NECK: Supple with no JVD without lymph nodes. LUNGS: Clear. Bilateral rhonchi at both bases. HEART: Normal sounds with regular beats. There is intermittent tachycardia at rest. ABDOMEN: Soft and nontender with normal bowel sounds. Gastrostomy site is clean. EXTREMITIES: Warm without cyanosis, clubbing, or edema. LABORATORY AND DIAGNOSTIC DATA: His hemoglobin is 8.4, hematocrit 27.0 with MCV of 94, WBC of 7.3, and platelets are 522. His BUN and creatinine are 50 and 1.9, respectively. It was 55 and 2.2 yesterday. His sodium is 148, potassium 3.9, chloride 111, and CO2 is 29. His calcium is 8.3. His phosphorus is 3.1. His magnesium is 2.3. SGOT, SGPT, and alkaline phosphatase are normal. His albumin is 11.7 and total protein is 7.1. Yesterday x-ray revealed slight interval increase in the haziness and the pulmonary vascularity development of interstitial edema. ASSESSMENT AND PLAN: Repeat laboratory tests will be done in the morning. The patient clinically has improved as compared to yesterday. Martina Morales M.D. DR: HARDY JOB#: [id number] CC:
[2017-07-04] MEDS: Metoprolol Tartrate 50mg tab GT SCH (09:03)
[2017-07-04] MEDS: Aspirin Baby 81mg ORAL SCH (09:03)
[2017-07-04] MEDS: Amikacin 500 MG in NS 110 ML IV SCH (09:03)
[2017-07-04] MEDS: Heparin 5000 units/ml inj SUBQ SCH ×2 (09:04→20:10)
--- NOTE | 2017-07-04 11:28 | Diagnostic Imaging Report ---
Indication: Dyspnea Comparison: 07/02/2017 A single view chest radiograph was obtained. Findings: Heart is borderline enlarged. There is some prominent vascularity within the lungs and suggestion of the interstitial opacities. Mild CHF is not excluded. Please correlate clinically. IMPRESSION: No change from the prior exam. Mild interstitial edema/CHF not excluded
[2017-07-04 12:00] VITALS: BP 139/62
--- NOTE | 2017-07-04 12:18 | Pulmonology Progress Note ---
Assessment/Plan Problems: (1) Acute renal failure (2) Aspiration pneumonia (3) Feeding by G-tube (4) History of CVA (cerebrovascular accident) (5) BOOGIE (acute kidney injury) Assessment/Plan on iv fluid 125 cc/hour LLL atelectasis resolved off bipap now renal failure improving on cefepime and amikacin check eclectrolytes Subjective ROS Limited/Unobtainable: No Constitutional: Reports: no symptoms Respiratory: Reports: no symptoms Allergies: Coded Allergies: No Known Allergies (Unverified , 05/11/17) Objective Last 24 Hour Vital Signs Date Time Temp Pulse Resp B/P (MAP) Pulse Ox O2 Delivery O2 Flow Rate FiO2 07/04/17 09:03 101 150/72 07/04/17 09:03 101 150/72 07/04/17 08:00 99.0 101 18 150/72 99 Nasal Cannula 4.0 07/04/17 08:00 112 07/04/17 06:35 153/85 07/04/17 04:00 99.2 98 20 153/85 97 Nasal Cannula 4.0 07/04/17 04:00 103 07/04/17 03:02 Nasal Cannula 3.0 32 07/04/17 03:02 Nasal Cannula 3.0 32 07/04/17 00:00 96 07/04/17 00:00 99.0 88 20 152/85 95 Nasal Cannula 4.0 07/03/17 23:14 92 22 99 Nasal Cannula 3.0 32 07/03/17 23:03 98 Nasal Cannula 3.0 32 07/03/17 23:03 87 18 98 Nasal Cannula 3.0 32 07/03/17 23:03 Nasal Cannula 3.0 32 07/03/17 21:31 100 153/81 07/03/17 21:31 153/81 07/03/17 20:00 99.4 100 24 153/81 97 Nasal Cannula 4.0 07/03/17 19:15 105 07/03/17 19:00 Nasal Cannula 3.0 32 07/03/17 19:00 Nasal Cannula 3.0 32 07/03/17 19:00 Nasal Cannula 3.0 32 07/03/17 19:00 97 Nasal Cannula 3.0 32 07/03/17 16:00 99.6 99 17 133/69 93 Nasal Cannula 4.0 07/03/17 15:45 102 07/03/17 15:11 96 20 99 Nasal Cannula 3.0 32 07/03/17 14:49 98 18 99 Nasal Cannula 3.0 32 07/03/17 13:06 135/73 Intake and Output 07/03/17 07/04/17 19:00 07:00 Intake Total 2447 ml 2235 ml Output Total 900 ml 1500 ml Balance 1547 ml 735 ml Free Water 200 ml 100 ml IV Total 1487 ml 1535 ml Tube Feeding 660 ml 600 ml Other 100 ml Output Urine Total 800 ml 1500 ml Stool Total 100 ml Objective General Appearance: no acute distress HEENT: normocephalic, atraumatic Respiratory/Chest: lungs clear, no respiratory distress, no accessory muscle use Cardiovascular: normal rate, no JVD, CL-femoral intact Abdomen: normal bowel sounds, soft, non tender Extremities: no edema Neurologic/Psychiatric: alert, responsive Musculoskeletal: normal muscle bulk Laboratory Tests 07/04/17 03:50: White Blood Count 6.9, Red Blood Count 2.74L, Hemoglobin 8.0L, Hematocrit 25.4L , Mean Corpuscular Volume 93, Mean Corpuscular Hemoglobin 29.2, Mean Corpuscular Hemoglobin Concent 31.4L, Red Cell Distribution Width 16.0H, Platelet Count 524H, Mean Platelet Volume 6.2L, Neutrophils (%) (Auto) 78.0H, Lymphocytes (%) (Auto) 14.2L, Monocytes (%) (Auto) 3.3, Eosinophils (%) (Auto) 3.9H, Basophils (%) (Auto) 0.7, Sodium Level 145, Potassium Level 3.8, Chloride Level 110H, Carbon Dioxide Level 29, Anion Gap 6, Blood Urea Nitrogen 43H, Creatinine 1.7H, Estimat Glomerular Filtration Rate 40.8, Glucose Level 246H, Calcium Level 8.3L, Magnesium Level 2.1, Pro-B-Type Natriuretic Peptide 5420H Current Medications Medications (Trade) Dose Ordered Sig/Willem Route PRN Reason Start Time Stop Time Status Last Admin Dose Admin Acetaminophen (Tylenol) 500 mg Q6H PRN ORAL MILD PAIN (1-4). NTE 3GM/DAY 06/30/17 15:00 07/30/17 14:59 Acetaminophen (Tylenol) 650 mg DAILY PRN ORAL Temp > 100.5 06/30/17 09:00 07/26/17 20:59 07/03/17 01:28 Acetaminophen (Tylenol) 650 mg Q6H PRN ORAL MODERATE PAIN (5-7) 06/30/17 15:00 07/30/17 14:59 07/03/17 17:35 Acetylcysteine (Mucomyst) 100 mg Q4HRT HHN 07/02/17 15:00 07/30/17 22:59 07/04/17 09:30 Albuterol/ Ipratropium (Albuterol/ Ipratropium) 3 ml Q4HRT HHN 07/02/17 03:00 07/07/17 02:59 07/04/17 09:28 Amikacin Protocol (Amikacin pharmacy to dose) 1 ea DAILY PRN MISC Per rx protocol 07/03/17 12:30 08/02/17 12:29 Amikacin Sulfate 500 mg/Sodium Chloride 112 ml @ 224 mls/hr Q18H IV 07/03/17 14:00 07/10/17 23:59 07/04/17 09:03 Amlodipine Besylate (Norvasc) 10 mg DAILY GT 06/30/17 09:00 07/21/17 08:59 07/04/17 09:03 Aspirin (ASA) 81 mg DAILY ORAL 06/30/17 09:00 07/30/17 08:59 07/04/17 09:03 Bisacodyl (Dulcolax) 10 mg DAILYPRN PRN RECTAL constipationIF MOM INEFFECTIVE 06/30/17 21:00 07/26/17 20:59 Cefepime HCl 2 gm/ Dextrose 55 ml @ 110 mls/hr Q24H IVPB 06/30/17 06:00 07/07/17 05:59 07/04/17 06:20 Clonidine HCl (Catapres Tab) 0.1 mg Q4H PRN GT bp of 160 syst and above 06/30/17 01:00 07/21/17 16:59 Collagenase (Santyl) 1 applic DAILY TOPIC 06/30/17 09:00 07/29/17 08:59 07/04/17 09:05 Dextrose (Dextrose 50%) STAT PRN IV Hypoglycemia 06/30/17 21:00 07/26/17 20:59 Famotidine (Pepcid) 20 mg DAILY ORAL 06/30/17 09:00 07/22/17 08:59 07/04/17 09:01 Heparin Sodium (Porcine) (Heparin 5000 units/ml) 5,000 units EVERY 12 HOURS SUBQ 06/30/17 09:00 07/21/17 08:59 07/04/17 09:04 Hydralazine HCl (Apresoline) 25 mg Q8HR GT 06/30/17 14:00 07/21/17 17:59 07/04/17 06:35 Insulin Aspart (NovoLOG) EVERY 6 HOURS SUBQ 06/30/17 00:45 07/21/17 06:29 07/04/17 06:22 Insulin Detemir (Levemir) 10 units QHS SUBQ 06/30/17 21:00 07/30/17 20:59 07/03/17 21:35 Levothyroxine Sodium (Synthroid) 50 mcg ACBREAKFAST GT 06/30/17 06:30 07/21/17 06:29 07/04/17 06:36 Metoprolol Tartrate (Lopressor) 75 mg EVERY 12 HOURS GT 07/03/17 09:00 08/02/17 08:59 07/04/17 09:03 Nitroglycerin (Ntg) 0.4 mg Q5M PRN SL CHEST PAIN 06/30/17 00:45 07/21/17 20:59 Sodium Chloride 1,000 ml @ 125 mls/hr Q8H IV 06/30/17 22:45 07/30/17 22:44 07/04/17 06:36 JESSE ZAVALA Jul 04, 2017 12:18
--- NOTE | 2017-07-04 12:46 | Infectious Diseases Prog Note ---
Assessment/Plan Assessment/Plan A: Fever-low grade improving PSA Pneumonia Sepsis 2ry to HCAP, improving CXR 06/26: Probable mild CHF. Please correlate clinically -CXR 06/22: Lungs and pleural spaces are clear -CXR: There is infiltrate in the left infrahilar region. There is some atelectasis at the right lung base. There is also retrocardiac consolidation -sp cx: +3 MDR PSA (S. Cefepime, Gentamicin/Amikacin) -u./a WBC 5-10, nit neg, leuk est +1, ucx 10-20K C. albicans (colonzier) -rectal wound cx: ESBL E.coli, PsA (colonizers)- no signs of infection 07/22 CoNS bacteremia- suspect contaminant 06/20 +07/22, 06/21 Neg x4 leukocytosis-resolved Lactic acidosis- resolved Cdiff neg 06/25 -Neg: HIV ag/ab, RPR, CrAg serum, FTA-ab Acute hypoxic resp failure s/p intubation 06/20- s/p extubation 06/25 BOOGIE, improving Recent gastritis (dx by EGD) Hx of encephalopathy -05/22 CT head: No evidence of acute intracranial hemorrhage, mass effect or cortical edema. MRI may be obtained for more sensitive evaluation as clinically indicated. Stable chronic infarct in the right frontal lobe. Cerebral and cerebellar atrophy greater than expected for age. Clinical correlation recommended. Mild periventricular hypoattenuation suggestive of chronic ischemic microvascular changes. -previous admission:nical correlation recommended. Mild periventricular hypoattenuation suggestive of chronic ischemic microvascular changes. Small area of right frontal encephalomalacia suggestive of old infarct. -UDS neg -TSH normal -Brain MRI: Chronic and age-related changes. Old right frontal infarct. 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 Plan: -Continue Cefepime d# 12 /14-21 , add Amikacin d# 2 / 7 ( w monitor of Cr ) -06/25 SP IV vancomycin #5, Amikacin #5 -1/6 SP Meropenem #3 -/4 SP Amikacin x1 -Monitor CBC/BMP, temperatures -aspiration precautions - wound care Subjective Constitutional: Denies: no symptoms, fever, chills, fatigue, anorexia, drenching sweats, other Allergies: Coded Allergies: No Known Allergies (Unverified , 05/11/17) Subjective low grade fever Objective Vital Signs Last 24 Hour Vital Signs Date Time Temp Pulse Resp B/P (MAP) Pulse Ox O2 Delivery O2 Flow Rate FiO2 07/04/17 09:03 101 150/72 07/04/17 09:03 101 150/72 07/04/17 08:00 99.0 101 18 150/72 99 Nasal Cannula 4.0 07/04/17 08:00 112 07/04/17 06:35 153/85 07/04/17 04:00 99.2 98 20 153/85 97 Nasal Cannula 4.0 07/04/17 04:00 103 07/04/17 03:02 Nasal Cannula 3.0 32 07/04/17 03:02 Nasal Cannula 3.0 32 07/04/17 00:00 96 07/04/17 00:00 99.0 88 20 152/85 95 Nasal Cannula 4.0 07/03/17 23:14 92 22 99 Nasal Cannula 3.0 32 07/03/17 23:03 98 Nasal Cannula 3.0 32 07/03/17 23:03 87 18 98 Nasal Cannula 3.0 32 07/03/17 23:03 Nasal Cannula 3.0 32 07/03/17 21:31 100 153/81 07/03/17 21:31 153/81 07/03/17 20:00 99.4 100 24 153/81 97 Nasal Cannula 4.0 07/03/17 19:15 105 07/03/17 19:00 Nasal Cannula 3.0 32 07/03/17 19:00 Nasal Cannula 3.0 32 07/03/17 19:00 Nasal Cannula 3.0 32 07/03/17 19:00 97 Nasal Cannula 3.0 32 07/03/17 16:00 99.6 99 17 133/69 93 Nasal Cannula 4.0 07/03/17 15:45 102 07/03/17 15:11 96 20 99 Nasal Cannula 3.0 32 07/03/17 14:49 98 18 99 Nasal Cannula 3.0 32 07/03/17 13:06 135/73 Height (Feet): 5 Height (Inches): 9.00 Weight (Pounds): 178 HEENT: atraumatic Respiratory/Chest: no accessory muscle use Cardiovascular: no gallop/murmur Abdomen: no organomegaly Laboratory Tests Test 07/04/17 03:50 White Blood Count 6.9 K/UL (4.8-10.8) Red Blood Count 2.74 M/UL (4.70-6.10) L Hemoglobin 8.0 G/DL (14.2-18.0) L Hematocrit 25.4 % (42.0-52.0) L Mean Corpuscular Volume 93 FL (80-99) Mean Corpuscular Hemoglobin 29.2 PG (27.0-31.0) Mean Corpuscular Hemoglobin Concent 31.4 G/DL (32.0-36.0) L Red Cell Distribution Width 16.0 % (11.6-14.8) H Platelet Count 524 K/UL (150-450) H Mean Platelet Volume 6.2 FL (6.5-10.1) L Neutrophils (%) (Auto) 78.0 % (45.0-75.0) H Lymphocytes (%) (Auto) 14.2 % (20.0-45.0) L Monocytes (%) (Auto) 3.3 % (1.0-10.0) Eosinophils (%) (Auto) 3.9 % (0.0-3.0) H Basophils (%) (Auto) 0.7 % (0.0-2.0) Sodium Level 145 MMOL/L (136-145) Potassium Level 3.8 MMOL/L (3.5-5.1) Chloride Level 110 MMOL/L (98-107) H Carbon Dioxide Level 29 MMOL/L (21-32) Anion Gap 6 mmol/L (5-15) Blood Urea Nitrogen 43 mg/dL (7-18) H Creatinine 1.7 MG/DL (0.55-1.30) H Estimat Glomerular Filtration Rate 40.8 mL/min (>60) Glucose Level 246 MG/DL (74-106) H Calcium Level 8.3 MG/DL (8.5-10.1) L Magnesium Level 2.1 MG/DL (1.8-2.4) Pro-B-Type Natriuretic Peptide 5420 pg/mL (0-125) H Current Medications Medications (Trade) Dose Ordered Sig/Willem Route PRN Reason Start Time Stop Time Status Last Admin Dose Admin Acetaminophen (Tylenol) 500 mg Q6H PRN ORAL MILD PAIN (1-4). NTE 3GM/DAY 06/30/17 15:00 07/30/17 14:59 Acetaminophen (Tylenol) 650 mg DAILY PRN ORAL Temp > 100.5 06/30/17 09:00 07/26/17 20:59 07/03/17 01:28 Acetaminophen (Tylenol) 650 mg Q6H PRN ORAL MODERATE PAIN (5-7) 06/30/17 15:00 07/30/17 14:59 07/03/17 17:35 Acetylcysteine (Mucomyst) 100 mg Q4HRT N 07/02/17 15:00 07/30/17 22:59 07/04/17 09:30 Albuterol/ Ipratropium (Albuterol/ Ipratropium) 3 ml Q4HRT [facility] 07/02/17 03:00 07/07/17 02:59 07/04/17 09:28 Amikacin Protocol (Amikacin pharmacy to dose) 1 ea DAILY PRN MISC Per rx protocol 07/03/17 12:30 08/02/17 12:29 Amikacin Sulfate 500 mg/Sodium Chloride 112 ml @ 224 mls/hr Q18H IV 07/03/17 14:00 07/10/17 23:59 07/04/17 09:03 Amlodipine Besylate (Norvasc) 10 mg DAILY GT 06/30/17 09:00 07/21/17 08:59 07/04/17 09:03 Aspirin (ASA) 81 mg DAILY ORAL 06/30/17 09:00 07/30/17 08:59 07/04/17 09:03 Bisacodyl (Dulcolax) 10 mg DAILYPRN PRN RECTAL constipationIF MOM INEFFECTIVE 06/30/17 21:00 07/26/17 20:59 Cefepime HCl 2 gm/ Dextrose 55 ml @ 110 mls/hr Q24H IVPB 06/30/17 06:00 07/07/17 05:59 07/04/17 06:20 Clonidine HCl (Catapres Tab) 0.1 mg Q4H PRN GT bp of 160 syst and above 06/30/17 01:00 07/21/17 16:59 Collagenase (Santyl) 1 applic DAILY TOPIC 06/30/17 09:00 07/29/17 08:59 07/04/17 09:05 Dextrose (Dextrose 50%) STAT PRN IV Hypoglycemia 06/30/17 21:00 07/26/17 20:59 Famotidine (Pepcid) 20 mg DAILY ORAL 06/30/17 09:00 07/22/17 08:59 07/04/17 09:01 Heparin Sodium (Porcine) (Heparin 5000 units/ml) 5,000 units EVERY 12 HOURS SUBQ 06/30/17 09:00 07/21/17 08:59 07/04/17 09:04 Hydralazine HCl (Apresoline) 25 mg Q8HR GT 06/30/17 14:00 07/21/17 17:59 07/04/17 06:35 Insulin Aspart (NovoLOG) EVERY 6 HOURS SUBQ 06/30/17 00:45 07/21/17 06:29 07/04/17 06:22 Insulin Detemir (Levemir) 10 units QHS SUBQ 06/30/17 21:00 07/30/17 20:59 07/03/17 21:35 Levothyroxine Sodium (Synthroid) 50 mcg ACBREAKFAST GT 06/30/17 06:30 07/21/17 06:29 07/04/17 06:36 Metoprolol Tartrate (Lopressor) 75 mg EVERY 12 HOURS GT 07/03/17 09:00 08/02/17 08:59 07/04/17 09:03 Nitroglycerin (Ntg) 0.4 mg Q5M PRN SL CHEST PAIN 06/30/17 00:45 07/21/17 20:59 Sodium Chloride 1,000 ml @ 125 mls/hr Q8H IV 06/30/17 22:45 07/30/17 22:44 07/04/17 06:36 REJI HOANG M.D. Jul 04, 2017 12:46
--- NOTE | 2017-07-04 14:49 | Nephrology Progress Note ---
Assessment/Plan Problem List: (1) Acute renal failure (2) Respiratory failure requiring intubation (3) Urosepsis (4) Anemia Assessment: worsening (5) Hypoalbuminemia Assessment BOOGIE (acute kidney injury), Cr 1.7 today , lower H&H lower Respiratory failure requiring intubation Respiratory failure with hypoxia Aspiration pneumonia, Urosepsis Anemia ACS (acute coronary syndrome), Non St Elevation NH CHF (congestive heart failure) Acute encephalopathy GT feeding LLL atelectesis worsening, Plan plan resp support will need tracheostomy to prevent worsening atelectaisis transfused avoid Nephrotoxics monitor renal parameters Keep BP and BS in check Optimize pulmonary and cardiac support Subjective ROS Limited/Unobtainable: No Constitutional: Reports: malaise, weakness Objective Objective Last 24 Hour Vital Signs Date Time Temp Pulse Resp B/P (MAP) Pulse Ox O2 Delivery O2 Flow Rate FiO2 07/04/17 13:46 139/62 07/04/17 13:36 66 24 98 Nasal Cannula 4.0 36 07/04/17 13:31 94 Nasal Cannula 4.0 36 07/04/17 13:31 Nasal Cannula 4.0 36 07/04/17 13:26 64 18 96 Nasal Cannula 4.0 36 07/04/17 12:00 96 07/04/17 12:00 99.8 94 18 139/62 97 Nasal Cannula 4.0 07/04/17 09:03 101 150/72 07/04/17 09:03 101 150/72 07/04/17 08:00 99.0 101 18 150/72 99 Nasal Cannula 4.0 07/04/17 08:00 112 07/04/17 06:35 153/85 07/04/17 04:00 99.2 98 20 153/85 97 Nasal Cannula 4.0 07/04/17 04:00 103 07/04/17 03:02 Nasal Cannula 3.0 32 07/04/17 03:02 Nasal Cannula 3.0 32 07/04/17 00:00 96 07/04/17 00:00 99.0 88 20 152/85 95 Nasal Cannula 4.0 07/03/17 23:14 92 22 99 Nasal Cannula 3.0 32 07/03/17 23:03 98 Nasal Cannula 3.0 32 07/03/17 23:03 87 18 98 Nasal Cannula 3.0 32 07/03/17 23:03 Nasal Cannula 3.0 32 07/03/17 21:31 100 153/81 07/03/17 21:31 153/81 07/03/17 20:00 99.4 100 24 153/81 97 Nasal Cannula 4.0 07/03/17 19:15 105 07/03/17 19:00 Nasal Cannula 3.0 32 07/03/17 19:00 Nasal Cannula 3.0 32 07/03/17 19:00 Nasal Cannula 3.0 32 07/03/17 19:00 97 Nasal Cannula 3.0 32 07/03/17 16:00 99.6 99 17 133/69 93 Nasal Cannula 4.0 07/03/17 15:45 102 07/03/17 15:11 96 20 99 Nasal Cannula 3.0 32 07/03/17 14:49 98 18 99 Nasal Cannula 3.0 32 Intake and Output 07/03/17 07/04/17 19:00 07:00 Intake Total 2447 ml 2235 ml Output Total 900 ml 1500 ml Balance 1547 ml 735 ml Free Water 200 ml 100 ml IV Total 1487 ml 1535 ml Tube Feeding 660 ml 600 ml Other 100 ml Output Urine Total 800 ml 1500 ml Stool Total 100 ml Laboratory Tests 07/04/17 03:50: White Blood Count 6.9, Red Blood Count 2.74L, Hemoglobin 8.0L, Hematocrit 25.4L , Mean Corpuscular Volume 93, Mean Corpuscular Hemoglobin 29.2, Mean Corpuscular Hemoglobin Concent 31.4L, Red Cell Distribution Width 16.0H, Platelet Count 524H, Mean Platelet Volume 6.2L, Neutrophils (%) (Auto) 78.0H, Lymphocytes (%) (Auto) 14.2L, Monocytes (%) (Auto) 3.3, Eosinophils (%) (Auto) 3.9H, Basophils (%) (Auto) 0.7, Sodium Level 145, Potassium Level 3.8, Chloride Level 110H, Carbon Dioxide Level 29, Anion Gap 6, Blood Urea Nitrogen 43H, Creatinine 1.7H, Estimat Glomerular Filtration Rate 40.8, Glucose Level 246H, Calcium Level 8.3L, Magnesium Level 2.1, Pro-B-Type Natriuretic Peptide 5420H Height (Feet): 5 Height (Inches): 9.00 Weight (Pounds): 178 General Appearance: lethargic Cardiovascular: normal rate, arrhythmia, other - variable Respiratory/Chest: decreased breath sounds Objective no other changes GARCÍA READ Jul 04, 2017 14:49
[2017-07-04 16:00] VITALS: BP 143/71
--- NOTE | 2017-07-04 19:47 | General Progress Note ---
Assessment/Plan Status: unchanged Assessment/Plan #. Anemia secondary to chronic disease. Anemia workup reviewed. --> Hemoglobin goal >7 --> Hemoglobin levels are above goal, no transfusion needed today #. Coagulopathy, malnutrition and vitamin K deficiency. --> Closely monitor. On anticoagulation as needed. #. Leukocytosis, likely secondary to underlying infection, sepsis, and antibiotics. --> has resolved, wbc count wnl --> Remains on antibiotics. #. Acute hypoxemia, requiring intubation. --> Currently extubated #. Acute kidney injury. #. Dysphagia with gastrostomy tube. #. Cerebrovascular accident with right-sided hemiplegia. #. Acute toxic metabolic encephalopathy. #. Hypothyroidism. Subjective Date patient seen: Jul 04, 2017 Constitutional: Denies: no symptoms, chills, diaphoresis, fever, malaise, weakness, other HEENT: Denies: no symptoms, eye pain, blurred vision, tearing, double vision, ear pain, ear discharge, nose pain, nose congestion, throat pain, throat swelling, mouth pain, mouth swelling, other Cardiovascular: Denies: no symptoms, chest pain, edema, irregular heart rate, lightheadedness, palpitations, syncope, other Respiratory: Denies: no symptoms, cough, orthopnea, shortness of breath, SOB with excertion, SOB at rest, sputum, stridor, wheezing, other Gastrointestinal/Abdominal: Denies: no symptoms, abdomen distended, abdominal pain, black stools, tarry stools, blood in stool, constipated, diarrhea, difficulty swallowing, nausea, poor appetite, poor fluid intake, rectal bleeding , vomiting, other Genitourinary: Denies: no symptoms, burning, discharge, frequency, flank pain, hematuria, incontinence, pain, urgency, other Allergies: Coded Allergies: No Known Allergies (Unverified , 05/11/17) Subjective Extubated. Minimally responsive. Thrombocytosis improving. Objective Last 24 Hour Vital Signs Date Time Temp Pulse Resp B/P (MAP) Pulse Ox O2 Delivery O2 Flow Rate FiO2 07/04/17 16:00 102 07/04/17 16:00 98.0 76 19 143/71 100 Nasal Cannula 4.0 07/04/17 15:42 79 18 98 Nasal Cannula 4.0 36 07/04/17 15:42 82 20 99 Nasal Cannula 4.0 36 1/17/18 13:46 139/62 07/04/17 13:36 66 24 98 Nasal Cannula 4.0 36 07/04/17 13:31 94 Nasal Cannula 4.0 36 07/04/17 13:31 Nasal Cannula 4.0 36 07/04/17 13:26 64 18 96 Nasal Cannula 4.0 36 07/04/17 12:00 96 07/04/17 12:00 99.8 94 18 139/62 97 Nasal Cannula 4.0 07/04/17 09:30 79 20 99 Nasal Cannula 4.0 36 07/04/17 09:30 Nasal Cannula 4.0 36 07/04/17 09:30 74 20 97 Nasal Cannula 4.0 36 07/04/17 09:30 99 Nasal Cannula 4.0 36 07/04/17 09:03 101 150/72 07/04/17 09:03 101 150/72 07/04/17 08:00 99.0 101 18 150/72 99 Nasal Cannula 4.0 07/04/17 08:00 112 07/04/17 06:35 153/85 07/04/17 04:00 99.2 98 20 153/85 97 Nasal Cannula 4.0 07/04/17 04:00 103 07/04/17 03:02 Nasal Cannula 3.0 32 07/04/17 03:02 Nasal Cannula 3.0 32 07/04/17 00:00 96 07/04/17 00:00 99.0 88 20 152/85 95 Nasal Cannula 4.0 07/03/17 23:14 92 22 99 Nasal Cannula 3.0 32 07/03/17 23:03 98 Nasal Cannula 3.0 32 07/03/17 23:03 87 18 98 Nasal Cannula 3.0 32 07/03/17 23:03 Nasal Cannula 3.0 32 07/03/17 21:31 100 153/81 18 21:31 153/81 07/03/17 20:00 99.4 100 24 153/81 97 Nasal Cannula 4.0 Intake and Output 07/03/17 07/04/17 19:00 07:00 Intake Total 2447 ml 2235 ml Output Total 900 ml 1500 ml Balance 1547 ml 735 ml Free Water 200 ml 100 ml IV Total 1487 ml 1535 ml Tube Feeding 660 ml 600 ml Other 100 ml Output Urine Total 800 ml 1500 ml Stool Total 100 ml Laboratory Tests 07/04/17 03:50: White Blood Count 6.9, Red Blood Count 2.74L, Hemoglobin 8.0L, Hematocrit 25.4L , Mean Corpuscular Volume 93, Mean Corpuscular Hemoglobin 29.2, Mean Corpuscular Hemoglobin Concent 31.4L, Red Cell Distribution Width 16.0H, Platelet Count 524H, Mean Platelet Volume 6.2L, Neutrophils (%) (Auto) 78.0H, Lymphocytes (%) (Auto) 14.2L, Monocytes (%) (Auto) 3.3, Eosinophils (%) (Auto) 3.9H, Basophils (%) (Auto) 0.7, Sodium Level 145, Potassium Level 3.8, Chloride Level 110H, Carbon Dioxide Level 29, Anion Gap 6, Blood Urea Nitrogen 43H, Creatinine 1.7H, Estimat Glomerular Filtration Rate 40.8, Glucose Level 246H, Calcium Level 8.3L, Magnesium Level 2.1, Pro-B-Type Natriuretic Peptide 5420H Height (Feet): 5 Height (Inches): 9.00 Weight (Pounds): 178 General Appearance: confused Respiratory/Chest: lungs clear Abdomen: soft Dejan Copeland Jul 04, 2017 19:47
[2017-07-04 20:00] VITALS: BP 154/76
[2017-07-04] MEDS: Levemir Flexpen SUBQ SCH (20:14)
--- NOTE | 2017-07-04 21:47 | Progress Note ---
DATE: 07/04/2017 CARDIOLOGY PROGRESS NOTE SUBJECTIVE: The patient continues to have congestion. Respiratory hygiene is required. He is off BiPAP. He continues with IV fluids. Renal parameters have slowly improving. OBJECTIVE: VITAL SIGNS: Blood pressure of 150/70, pulse 101, respirations 18, afebrile, and T-max 99.6. LUNGS: Coarse breath sounds. Few rhonchi. HEART: Regular rhythm. Rapid rate. Normal S1, S2. ABDOMEN: Soft. G-tube intact. EXTREMITIES: With trace dependent edema. LABORATORY DATA: White count 6.9, hemoglobin 8, and platelet count 524,000. Sodium 145, potassium 3.8, chloride 110, bicarbonate 29, BUN 43, and creatinine 1.7. Pro natriuretic peptide 5400. IMPRESSION: 1. Acute myocardial infarction. 2. Dehydration. 3. Hyponatremia. 4. Acute renal failure. 5. Type 2 diabetes mellitus with hyperglycemia. 6. Acute on chronic diastolic congestive heart failure. 7. Severe protein-calorie malnutrition. 8. Dysphagia with G-tube. 9. Recurring aspiration with atelectasis, overall improving steadily. PLAN: 1. Plan of care in place. 2. We will continue hydration fluid rate as condition warrants. 3. Nutritional support. 4. No diuretic therapy. 5. Advance beta-blockade. 6. Antimicrobials. 7. Respiratory hygiene. Ulisses Gaston M.D. DR: LOIDA JOB#: [id number] CC:
--- NOTE | 2017-07-04 22:03 | Progress Note ---
DATE: 07/04/2017 SUBJECTIVE: The patient is afebrile and hemodynamically stable. PHYSICAL EXAMINATION: VITAL SIGNS: Blood pressure 143/71, his pulse is 76, respirations 19, and temperature was 98. HEENT: Eyes were normal. ENT, mucous membranes were moist and intact. NECK: Supple with no JVD without lymph nodes. LUNGS: With lateral rhonchi on the left more on the right, but not in upper or lower lobes. HEART: Normal sounds with regular beats. There is no tachycardia at rest. ABDOMEN: Soft and nontender with normal bowel sounds. Gastrostomy site is clean. EXTREMITIES: Warm without cyanosis, clubbing, or edema. LABORATORY DATA: His hemoglobin is 8.0, hematocrit 25.4 with MCV of 93, WBC of 6.9, and platelets are 524,000. His BUN and creatinine are 43 and 1.7 respectively. His sodium is 145, potassium 3.8, chloride 110, and CO2 is 29. His BUN and creatinine were 50 and 1.9 yesterday. His calcium is 8.3. His magnesium is 2.1. His ProBNP is 5499. It was 3800 two days ago. His chest x-ray revealed no change from prior exam. Mild congestive heart failure cannot be excluded. IMPRESSION AND PLAN: The patient clinically continued to slowly improve in maintaining ventilation and O2 saturation without intubation. Repeat laboratory tests will be done in a.m. Currently, the leukocytosis has completely resolved. The patient does not have any tachycardia. Martina Morales M.D. DR: HARDY JOB#: [id number] CC:
[2017-07-05] VITALS: BP 146/81
[2017-07-05] MEDS: Amikacin 500 MG in NS 110 ML IV SCH ×2 (01:45→20:17)
[2017-07-05 04:00] VITALS: BP 153/77
[2017-07-05] MEDS: Albuterol/Ipratropium 3ml neb HHN SCH ×6 (05:11→23:18)
[2017-07-05] MEDS: HydrALAZINE 25mg tab GT SCH ×3 (05:14→21:12)
[2017-07-05] MEDS: Cefepime HCl 2 GM in D5W 55 ML IVPB SCH (05:14)
[2017-07-05] MEDS: NovoLOG Insulin Flexpen SUBQ SCH ×4 (05:16→23:33)
[2017-07-05 05:43] LABS: HEMATOCRIT 24.5 % (42.0-52.0); HEMOGLOBIN 7.9 G/DL (14.2-18.0); MEAN CORPUSCULAR VOLUME 92 FL (80-99); PLATELET COUNT 493 K/UL (150-450); RED BLOOD COUNT 2.65 M/UL (4.70-6.10); RED CELL DISTRIBUTION WIDTH 16.2 % (11.6-14.8); WHITE BLOOD COUNT 7.5 K/UL (4.8-10.8)
[2017-07-05 06:15] LABS: ALANINE AMINOTRANSFERASE 25 U/L (12-78); ALBUMIN 1.6 G/DL (3.4-5.0); ALBUMIN/GLOBULIN RATIO 0.3 (1.0-2.7); ALKALINE PHOSPHATASE 97 U/L (46-116); ANION GAP 8 mmol/L (5-15); ASPARTATE AMINO TRANSFERASE 20 U/L (15-37); BILIRUBIN,TOTAL 0.1 MG/DL (0.2-1.0); BLOOD UREA NITROGEN 39 mg/dL (7-18); CALCIUM 8.4 MG/DL (8.5-10.1); CARBON DIOXIDE 28 MMOL/L (21-32); CHLORIDE 110 MMOL/L (98-107); CREATININE 1.5 MG/DL (0.55-1.30); PHOSPHORUS 3.1 MG/DL (2.5-4.9); POTASSIUM 3.8 MMOL/L (3.5-5.1); SODIUM 146 MMOL/L (136-145)
[2017-07-05 08:00] VITALS: BP 145/76
[2017-07-05] MEDS: Aspirin Baby 81mg ORAL SCH (09:17)
[2017-07-05] MEDS: Heparin 5000 units/ml inj SUBQ SCH ×2 (09:19→20:29)
--- NOTE | 2017-07-05 10:31 | Pulmonology Progress Note ---
Assessment/Plan Problems: (1) Acute renal failure (2) Aspiration pneumonia (3) Feeding by G-tube (4) History of CVA (cerebrovascular accident) (5) BOOGIE (acute kidney injury) Assessment/Plan open eyes comfortable PRBC times one today LLL atelectasis resolved off bipap now renal failure improving on cefepime and amikacin check eclectrolytes Subjective Constitutional: Reports: no symptoms HEENT: Repors: no symptoms Allergies: Coded Allergies: No Known Allergies (Unverified , 05/11/17) Objective Last 24 Hour Vital Signs Date Time Temp Pulse Resp B/P (MAP) Pulse Ox O2 Delivery O2 Flow Rate FiO2 07/05/17 09:18 100 145/76 07/05/17 09:18 100 145/76 07/05/17 08:00 99.2 100 18 145/76 98 Nasal Cannula 4.0 07/05/17 07:20 82 20 99 Nasal Cannula 4.0 36 07/05/17 06:50 85 18 98 Nasal Cannula 4.0 36 07/05/17 06:49 Nasal Cannula 4.0 36 07/05/17 06:49 99 Nasal Cannula 4.0 36 07/05/17 05:14 153/77 07/05/17 04:00 93 07/05/17 04:00 98.6 90 22 153/77 97 Nasal Cannula 4.0 07/05/17 03:28 85 20 99 Nasal Cannula 4.0 36 07/05/17 03:14 80 18 99 Nasal Cannula 4.0 36 07/05/17 00:00 98.8 88 22 146/81 98 Nasal Cannula 4.0 07/05/17 00:00 90 07/04/17 23:07 Nasal Cannula 4.0 36 07/04/17 23:07 Nasal Cannula 4.0 36 07/04/17 20:06 103 154/76 07/04/17 20:06 154/76 07/04/17 20:00 103 07/04/17 20:00 98.4 103 19 154/76 96 Nasal Cannula 4.0 07/04/17 19:08 Nasal Cannula 4.0 36 07/04/17 19:08 82 16 98 Nasal Cannula 4.0 07/04/17 19:04 98 Nasal Cannula 4.0 36 07/04/17 19:04 Nasal Cannula 4.0 36 07/04/17 16:00 102 1/17/18 16:00 98.0 76 19 143/71 100 Nasal Cannula 4.0 07/04/17 15:42 79 18 98 Nasal Cannula 4.0 36 07/04/17 15:42 82 20 99 Nasal Cannula 4.0 36 07/04/17 13:46 139/62 07/04/17 13:36 66 24 98 Nasal Cannula 4.0 36 07/04/17 13:31 94 Nasal Cannula 4.0 36 07/04/17 13:31 Nasal Cannula 4.0 36 07/04/17 13:26 64 18 96 Nasal Cannula 4.0 36 07/04/17 12:00 96 07/04/17 12:00 99.8 94 18 139/62 97 Nasal Cannula 4.0 Intake and Output 07/04/17 07/05/17 19:00 07:00 Intake Total 2177 ml 1720 ml Output Total 1100 ml 1000 ml Balance 1077 ml 720 ml Free Water 250 ml IV Total 1207 ml 1030 ml Tube Feeding 720 ml 600 ml Other 90 ml Output Urine Total 1100 ml 1000 ml # Bowel Movements 1 Objective General Appearance: no acute distress HEENT: normocephalic, atraumatic Respiratory/Chest: lungs clear, no respiratory distress, no accessory muscle use Cardiovascular: normal rate, no JVD, CL-femoral intact Abdomen: normal bowel sounds, soft, non tender Extremities: no edema Neurologic/Psychiatric: alert, responsive Musculoskeletal: normal muscle bulk Laboratory Tests 07/05/17 04:10: White Blood Count 7.5, Red Blood Count 2.65L, Hemoglobin 7.9L, Hematocrit 24.5L , Mean Corpuscular Volume 92, Mean Corpuscular Hemoglobin 29.7, Mean Corpuscular Hemoglobin Concent 32.2, Red Cell Distribution Width 16.2H, Platelet Count 493H, Mean Platelet Volume 6.3L, Neutrophils (%) (Auto) , Lymphocytes (%) (Auto) , Monocytes (%) (Auto) , Eosinophils (%) (Auto) , Basophils (%) (Auto) , Differential Total Cells Counted 100, Neutrophils % ( Manual) 80H, Lymphocytes % (Manual) 12L, Monocytes % (Manual) 7, Eosinophils % ( Manual) 0, Basophils % (Manual) 0, Band Neutrophils 1, Platelet Estimate IncreasedH, Platelet Morphology [Pending], Hypochromasia 1+, Anisocytosis 1+, Sodium Level 146H, Potassium Level 3.8, Chloride Level 110H, Carbon Dioxide Level 28, Anion Gap 8, Blood Urea Nitrogen 39H, Creatinine 1.5H, Estimat Glomerular Filtration Rate 47.1, Glucose Level 221H, Calcium Level 8.4L, Phosphorus Level 3.1, Magnesium Level 2.1, Total Bilirubin 0.1L, Aspartate Amino Transf (AST/SGOT) 20, Alanine Aminotransferase (ALT/SGPT) 25, Alkaline Phosphatase 97, Total Protein 6.6, Albumin 1.6L, Globulin 5.0, Albumin/Globulin Ratio 0.3L Current Medications Medications (Trade) Dose Ordered Sig/Willem Route PRN Reason Start Time Stop Time Status Last Admin Dose Admin Acetaminophen (Tylenol) 500 mg Q6H PRN ORAL MILD PAIN (1-4). NTE 3GM/DAY 06/30/17 15:00 07/30/17 14:59 Acetaminophen (Tylenol) 650 mg DAILY PRN ORAL Temp > 100.5 06/30/17 09:00 07/26/17 20:59 07/05/17 10:20 Acetaminophen (Tylenol) 650 mg Q6H PRN ORAL MODERATE PAIN (5-7) 06/30/17 15:00 07/30/17 14:59 07/03/17 17:35 Acetylcysteine (Mucomyst) 100 mg Q4HRT [facility] 07/02/17 15:00 07/30/17 22:59 07/05/17 07:08 Albuterol/ Ipratropium (Albuterol/ Ipratropium) 3 ml Q4HRT [facility] 07/02/17 03:00 07/07/17 02:59 07/05/17 06:49 Amikacin Protocol (Amikacin pharmacy to dose) 1 ea DAILY PRN MISC Per rx protocol 07/03/17 12:30 08/02/17 12:29 Amikacin Sulfate 500 mg/Sodium Chloride 112 ml @ 224 mls/hr Q18H IV 07/03/17 14:00 07/10/17 23:59 07/05/17 01:45 Amlodipine Besylate (Norvasc) 10 mg DAILY GT 06/30/17 09:00 07/21/17 08:59 07/05/17 09:18 Aspirin (ASA) 81 mg DAILY ORAL 1/13/18 09:00 07/30/17 08:59 07/05/17 09:17 Bisacodyl (Dulcolax) 10 mg DAILYPRN PRN RECTAL constipationIF MOM INEFFECTIVE 06/30/17 21:00 07/26/17 20:59 Cefepime HCl 2 gm/ Dextrose 55 ml @ 110 mls/hr Q24H IVPB 06/30/17 06:00 07/07/17 05:59 07/05/17 05:14 Clonidine HCl (Catapres Tab) 0.1 mg Q4H PRN GT bp of 160 syst and above 06/30/17 01:00 07/21/17 16:59 Collagenase (Santyl) 1 applic DAILY TOPIC 06/30/17 09:00 07/29/17 08:59 07/05/17 09:19 Dextrose (Dextrose 50%) STAT PRN IV Hypoglycemia 06/30/17 21:00 07/26/17 20:59 Famotidine (Pepcid) 20 mg DAILY ORAL 06/30/17 09:00 07/22/17 08:59 07/05/17 09:17 Heparin Sodium (Porcine) (Heparin 5000 units/ml) 5,000 units EVERY 12 HOURS SUBQ 06/30/17 09:00 07/21/17 08:59 07/05/17 09:19 Hydralazine HCl (Apresoline) 25 mg Q8HR GT 06/30/17 14:00 07/21/17 17:59 07/05/17 05:14 Insulin Aspart (NovoLOG) EVERY 6 HOURS SUBQ 06/30/17 00:45 07/21/17 06:29 07/05/17 05:16 Insulin Detemir (Levemir) 15 units QHS SUBQ 07/04/17 21:00 08/03/17 20:59 07/04/17 20:14 Levothyroxine Sodium (Synthroid) 50 mcg ACBREAKFAST GT 06/30/17 06:30 07/21/17 06:29 07/05/17 05:56 Metoprolol Tartrate (Lopressor) 100 mg EVERY 12 HOURS GT 07/04/17 21:00 08/03/17 20:59 07/05/17 09:18 Nitroglycerin (Ntg) 0.4 mg Q5M PRN SL CHEST PAIN 06/30/17 00:45 07/21/17 20:59 Sodium Chloride 1,000 ml @ 75 mls/hr [id number] IV 07/04/17 17:30 08/03/17 17:29 07/05/17 06:41 JESSE ZVAALA Jul 05, 2017 10:31
[2017-07-05 12:00] VITALS: BP 138/71
[2017-07-05 16:00] VITALS: BP 136/65
--- NOTE | 2017-07-05 17:01 | Nephrology Progress Note ---
Assessment/Plan Problem List: (1) Acute renal failure (2) Respiratory failure requiring intubation (3) Urosepsis (4) Anemia Assessment: worsening (5) Hypoalbuminemia Assessment BOOGIE (acute kidney injury), Cr 1.5today , lower H&H lower Respiratory failure requiring intubation Respiratory failure with hypoxia Aspiration pneumonia, Urosepsis Anemia ACS (acute coronary syndrome), Non St Elevation MT CHF (congestive heart failure) Acute encephalopathy GT feeding LLL atelectesis worsening, Plan plan resp support will need tracheostomy to prevent worsening atelectaisis transfused avoid Nephrotoxics monitor renal parameters Keep BP and BS in check Optimize pulmonary and cardiac support Subjective ROS Limited/Unobtainable: No Constitutional: Reports: malaise Objective Objective Last 24 Hour Vital Signs Date Time Temp Pulse Resp B/P (MAP) Pulse Ox O2 Delivery O2 Flow Rate FiO2 07/05/17 16:00 99 07/05/17 16:00 98.6 92 18 136/65 96 Nasal Cannula 4.0 07/05/17 15:48 79 20 99 Nasal Cannula 4.0 36 07/05/17 15:20 85 18 97 Nasal Cannula 4.0 36 07/05/17 14:28 138/71 07/05/17 12:00 87 07/05/17 12:00 98.6 87 18 138/71 98 Nasal Cannula 4.0 07/05/17 11:27 84 20 99 Nasal Cannula 4.0 36 07/05/17 11:19 99.2 07/05/17 11:01 74 18 97 Nasal Cannula 4.0 36 07/05/17 09:18 100 145/76 07/05/17 09:18 100 145/76 07/05/17 08:00 99.2 100 18 145/76 98 Nasal Cannula 4.0 07/05/17 08:00 106 07/05/17 07:20 82 20 99 Nasal Cannula 4.0 36 07/05/17 06:50 85 18 98 Nasal Cannula 4.0 36 07/05/17 06:49 Nasal Cannula 4.0 36 07/05/17 06:49 99 Nasal Cannula 4.0 36 07/05/17 05:14 153/77 07/05/17 04:00 93 07/05/17 04:00 98.6 90 22 153/77 97 Nasal Cannula 4.0 07/05/17 03:28 85 20 99 Nasal Cannula 4.0 36 07/05/17 03:14 80 18 99 Nasal Cannula 4.0 36 07/05/17 00:00 98.8 88 22 146/81 98 Nasal Cannula 4.0 07/05/17 00:00 90 07/04/17 23:07 Nasal Cannula 4.0 36 07/04/17 23:07 Nasal Cannula 4.0 36 07/04/17 20:06 103 154/76 07/04/17 20:06 154/76 07/04/17 20:00 103 07/04/17 20:00 98.4 103 19 154/76 96 Nasal Cannula 4.0 07/04/17 19:08 Nasal Cannula 4.0 36 07/04/17 19:08 82 16 98 Nasal Cannula 4.0 07/04/17 19:04 98 Nasal Cannula 4.0 36 07/04/17 19:04 Nasal Cannula 4.0 36 Intake and Output 07/04/17 07/05/17 19:00 07:00 Intake Total 2177 ml 1720 ml Output Total 1100 ml 1000 ml Balance 1077 ml 720 ml Free Water 250 ml IV Total 1207 ml 1030 ml Tube Feeding 720 ml 600 ml Other 90 ml Output Urine Total 1100 ml 1000 ml # Bowel Movements 1 Laboratory Tests 07/05/17 04:10: White Blood Count 7.5, Red Blood Count 2.65L, Hemoglobin 7.9L, Hematocrit 24.5L , Mean Corpuscular Volume 92, Mean Corpuscular Hemoglobin 29.7, Mean Corpuscular Hemoglobin Concent 32.2, Red Cell Distribution Width 16.2H, Platelet Count 493H, Mean Platelet Volume 6.3L, Neutrophils (%) (Auto) , Lymphocytes (%) (Auto) , Monocytes (%) (Auto) , Eosinophils (%) (Auto) , Basophils (%) (Auto) , Differential Total Cells Counted 100, Neutrophils % ( Manual) 80H, Lymphocytes % (Manual) 12L, Monocytes % (Manual) 7, Eosinophils % ( Manual) 0, Basophils % (Manual) 0, Band Neutrophils 1, Platelet Estimate IncreasedH, Platelet Morphology Normal, Hypochromasia 1+, Anisocytosis 1+, Sodium Level 146H, Potassium Level 3.8, Chloride Level 110H, Carbon Dioxide Level 28, Anion Gap 8, Blood Urea Nitrogen 39H, Creatinine 1.5H, Estimat Glomerular Filtration Rate 47.1, Glucose Level 221H, Calcium Level 8.4L, Phosphorus Level 3.1, Magnesium Level 2.1, Total Bilirubin 0.1L, Aspartate Amino Transf (AST/SGOT) 20, Alanine Aminotransferase (ALT/SGPT) 25, Alkaline Phosphatase 97, Total Protein 6.6, Albumin 1.6L, Globulin 5.0, Albumin/Globulin Ratio 0.3L Height (Feet): 5 Height (Inches): 9.00 Weight (Pounds): 180 General Appearance: no apparent distress Cardiovascular: normal rate Respiratory/Chest: decreased breath sounds Abdomen: soft Objective no other changes GARCÍA READ Jul 05, 2017 17:01
[2017-07-05 20:00] VITALS: BP 134/67
[2017-07-05] MEDS: Levemir Flexpen SUBQ SCH (20:28)
--- NOTE | 2017-07-05 20:30 | Progress Note ---
DATE: 07/05/2017 CARDIOLOGY PROGRESS NOTE SUBJECTIVE: The patient's condition largely unchanged, requires respiratory hygiene, has not required BiPAP today. OBJECTIVE: VITAL SIGNS: Blood pressure of 136/65, pulse 92, respirations 18, afebrile, and T-max 99.2. LUNGS: Coarse breath sounds. Few rhonchi. HEART: Regular rhythm and rate. Normal S1, S2. ABDOMEN: Soft. EXTREMITIES: No edema. LABORATORY DATA: White count 7.5, hemoglobin 7.9. Potassium 3.8, sodium 146, bicarbonate 28, BUN 39, and creatinine 1.5. Albumin 1.6. IMPRESSION: 1. Dehydration. 2. Hypernatremia. 3. Free water deficit. 4. Hyperchloremia. 5. Acute myocardial infarction. 6. Acute on chronic renal failure. 7. Severe protein-calorie malnutrition. 8. Acute on chronic diastolic congestive heart failure. 9. Third spacing. 10. Anemia. PLAN: 1. Antimicrobials. 2. Respiratory hygiene. 3. Transfuse for further drop in hemoglobin. 4. Continue free water replacement. 5. No diuresis at this time. 6. Maintain beta-abdoulaye. 7. Titrate amlodipine for blood pressure management. 8. Discontinue aspirin if any signs of gastrointestinal blood loss. Ulisses Gaston M.D. : LOIDA JOB#: [id number] CC:
--- NOTE | 2017-07-05 21:32 | Infectious Diseases Prog Note ---
Assessment/Plan Assessment/Plan A: Fever-low grade, SP PSA Pneumonia Sepsis 2ry to HCAP, improving CXR 06/26: Probable mild CHF. Please correlate clinically -CXR 06/22: Lungs and pleural spaces are clear -CXR: There is infiltrate in the left infrahilar region. There is some atelectasis at the right lung base. There is also retrocardiac consolidation -sp cx: +3 MDR PSA (S. Cefepime, Gentamicin/Amikacin) -u./a WBC 5-10, nit neg, leuk est +1, ucx 10-20K C. albicans (colonzier) -rectal wound cx: ESBL E.coli, PsA (colonizers)- no signs of infection 07/22 CoNS bacteremia- suspect contaminant 06/20 +07/22, 06/21 Neg x4 leukocytosis-resolved Lactic acidosis- resolved Cdiff neg 06/25 -Neg: HIV ag/ab, RPR, CrAg serum, FTA-ab Acute hypoxic resp failure s/p intubation 06/20- s/p extubation 06/25 BOOGIE, improving Recent gastritis (dx by EGD) Hx of encephalopathy -05/22 CT head: No evidence of acute intracranial hemorrhage, mass effect or cortical edema. MRI may be obtained for more sensitive evaluation as clinically indicated. Stable chronic infarct in the right frontal lobe. Cerebral and cerebellar atrophy greater than expected for age. Clinical correlation recommended. Mild periventricular hypoattenuation suggestive of chronic ischemic microvascular changes. -previous admission:nical correlation recommended. Mild periventricular hypoattenuation suggestive of chronic ischemic microvascular changes. Small area of right frontal encephalomalacia suggestive of old infarct. -UDS neg -TSH normal -Brain MRI: Chronic and age-related changes. Old right frontal infarct. 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 Plan: -Continue Cefepime d# 13 /14-21 , add Amikacin d# 3 / 7 ( w monitor of Cr ) -06/25 SP IV vancomycin #5, Amikacin #5 -1/6 SP Meropenem #3 -1/4 SP Amikacin x1 -Monitor CBC/BMP, temperatures -aspiration precautions - wound care Subjective Allergies: Coded Allergies: No Known Allergies (Unverified , 05/11/17) Subjective Afebrile Objective Vital Signs Last 24 Hour Vital Signs Date Time Temp Pulse Resp B/P (MAP) Pulse Ox O2 Delivery O2 Flow Rate FiO2 07/05/17 21:12 136/65 18 20:19 105 136/65 07/05/17 19:59 105 18 99 Nasal Cannula 3.0 36 07/05/17 19:57 Nasal Cannula 4.0 36 07/05/17 19:56 97 Nasal Cannula 4.0 36 07/05/17 19:50 103 20 97 Nasal Cannula 4.0 36 07/05/17 16:00 99 07/05/17 16:00 98.6 92 18 136/65 96 Nasal Cannula 4.0 07/05/17 15:48 79 20 99 Nasal Cannula 4.0 36 07/05/17 15:20 85 18 97 Nasal Cannula 4.0 36 07/05/17 14:28 138/71 07/05/17 12:00 87 07/05/17 12:00 98.6 87 18 138/71 98 Nasal Cannula 4.0 07/05/17 11:27 84 20 99 Nasal Cannula 4.0 36 07/05/17 11:19 99.2 07/05/17 11:01 74 18 97 Nasal Cannula 4.0 36 07/05/17 09:18 100 145/76 07/05/17 09:18 100 145/76 07/05/17 08:00 99.2 100 18 145/76 98 Nasal Cannula 4.0 07/05/17 08:00 106 07/05/17 07:20 82 20 99 Nasal Cannula 4.0 36 07/05/17 06:50 85 18 98 Nasal Cannula 4.0 36 07/05/17 06:49 Nasal Cannula 4.0 36 07/05/17 06:49 99 Nasal Cannula 4.0 36 07/05/17 05:14 153/77 07/05/17 04:00 93 07/05/17 04:00 98.6 90 22 153/77 97 Nasal Cannula 4.0 07/05/17 03:28 85 20 99 Nasal Cannula 4.0 36 07/05/17 03:14 80 18 99 Nasal Cannula 4.0 36 07/05/17 00:00 98.8 88 22 146/81 98 Nasal Cannula 4.0 07/05/17 00:00 90 07/04/17 23:07 Nasal Cannula 4.0 36 07/04/17 23:07 Nasal Cannula 4.0 36 Height (Feet): 5 Height (Inches): 9.00 Weight (Pounds): 180 HEENT: atraumatic Respiratory/Chest: respiratory distress Cardiovascular: regularly irregular Abdomen: non distended Laboratory Tests Test 07/05/17 04:10 07/05/17 19:35 07/05/17 21:00 White Blood Count 7.5 K/UL (4.8-10.8) Red Blood Count 2.65 M/UL (4.70-6.10) L Hemoglobin 7.9 G/DL (14.2-18.0) L Hematocrit 24.5 % (42.0-52.0) L Mean Corpuscular Volume 92 FL (80-99) Mean Corpuscular Hemoglobin 29.7 PG (27.0-31.0) Mean Corpuscular Hemoglobin Concent 32.2 G/DL (32.0-36.0) Red Cell Distribution Width 16.2 % (11.6-14.8) H Platelet Count 493 K/UL (150-450) H Mean Platelet Volume 6.3 FL (6.5-10.1) L Neutrophils (%) (Auto) % (45.0-75.0) Lymphocytes (%) (Auto) % (20.0-45.0) Monocytes (%) (Auto) % (1.0-10.0) Eosinophils (%) (Auto) % (0.0-3.0) Basophils (%) (Auto) % (0.0-2.0) Differential Total Cells Counted 100 Neutrophils % (Manual) 80 % (45-75) H Lymphocytes % (Manual) 12 % (20-45) L Monocytes % (Manual) 7 % (1-10) Eosinophils % (Manual) 0 % (0-3) Basophils % (Manual) 0 % (0-2) Band Neutrophils 1 % (0-8) Platelet Estimate Increased H Platelet Morphology Normal Hypochromasia 1+ Anisocytosis 1+ Sodium Level 146 MMOL/L (136-145) H Potassium Level 3.8 MMOL/L (3.5-5.1) Chloride Level 110 MMOL/L (98-107) H Carbon Dioxide Level 28 MMOL/L (21-32) Anion Gap 8 mmol/L (5-15) Blood Urea Nitrogen 39 mg/dL (7-18) H Creatinine 1.5 MG/DL (0.55-1.30) H Estimat Glomerular Filtration Rate 47.1 mL/min (>60) Glucose Level 221 MG/DL (74-106) H Calcium Level 8.4 MG/DL (8.5-10.1) L Phosphorus Level 3.1 MG/DL (2.5-4.9) Magnesium Level 2.1 MG/DL (1.8-2.4) Total Bilirubin 0.1 MG/DL (0.2-1.0) L Aspartate Amino Transf (AST/SGOT) 20 U/L (15-37) Alanine Aminotransferase (ALT/SGPT) 25 U/L (12-78) Alkaline Phosphatase 97 U/L (46-116) Total Protein 6.6 G/DL (6.4-8.2) Albumin 1.6 G/DL (3.4-5.0) L Globulin 5.0 g/dL Albumin/Globulin Ratio 0.3 (1.0-2.7) L Amikacin Level Trough Pending Amikacin Level Peak Pending Current Medications Medications (Trade) Dose Ordered Sig/Willem Route PRN Reason Start Time Stop Time Status Last Admin Dose Admin Acetaminophen (Tylenol) 500 mg Q6H PRN ORAL MILD PAIN (1-4). NTE 3GM/DAY 06/30/17 15:00 07/30/17 14:59 Acetaminophen (Tylenol) 650 mg DAILY PRN ORAL Temp > 100.5 06/30/17 09:00 07/26/17 20:59 07/05/17 10:20 Acetaminophen (Tylenol) 650 mg Q6H PRN ORAL MODERATE PAIN (5-7) 06/30/17 15:00 07/30/17 14:59 07/03/17 17:35 Acetylcysteine (Mucomyst) 100 mg Q4HRT N 07/02/17 15:00 07/30/17 22:59 07/05/17 19:53 Albuterol/ Ipratropium (Albuterol/ Ipratropium) 3 ml Q4HRT N 07/02/17 03:00 07/07/17 02:59 07/05/17 19:53 Amikacin Protocol (Amikacin pharmacy to dose) 1 ea DAILY PRN MISC Per rx protocol 07/03/17 12:30 08/02/17 12:29 Amikacin Sulfate 500 mg/Sodium Chloride 112 ml @ 224 mls/hr Q18H IV 07/03/17 14:00 07/10/17 23:59 07/05/17 20:17 Amlodipine Besylate (Norvasc) 10 mg DAILY GT 06/30/17 09:00 07/21/17 08:59 07/05/17 09:18 Aspirin (ASA) 81 mg DAILY ORAL 06/30/17 09:00 07/30/17 08:59 07/05/17 09:17 Bisacodyl (Dulcolax) 10 mg DAILYPRN PRN RECTAL constipationIF MOM INEFFECTIVE 06/30/17 21:00 07/26/17 20:59 Cefepime HCl 2 gm/ Dextrose 55 ml @ 110 mls/hr Q24H IVPB 06/30/17 06:00 07/07/17 05:59 07/05/17 05:14 Clonidine HCl (Catapres Tab) 0.1 mg Q4H PRN GT bp of 160 syst and above 06/30/17 01:00 07/21/17 16:59 Collagenase (Santyl) 1 applic DAILY TOPIC 06/30/17 09:00 07/29/17 08:59 07/05/17 09:19 Dextrose (Dextrose 50%) STAT PRN IV Hypoglycemia 06/30/17 21:00 07/26/17 20:59 Famotidine (Pepcid) 20 mg DAILY ORAL 06/30/17 09:00 07/22/17 08:59 07/05/17 09:17 Heparin Sodium (Porcine) (Heparin 5000 units/ml) 5,000 units EVERY 12 HOURS SUBQ 06/30/17 09:00 07/21/17 08:59 07/05/17 20:29 Hydralazine HCl (Apresoline) 25 mg Q8HR GT 06/30/17 14:00 07/21/17 17:59 07/05/17 21:12 Insulin Aspart (NovoLOG) EVERY 6 HOURS SUBQ 06/30/17 00:45 07/21/17 06:29 07/05/17 17:39 Insulin Detemir (Levemir) 15 units QHS SUBQ 07/04/17 21:00 08/03/17 20:59 07/05/17 20:28 Levothyroxine Sodium (Synthroid) 50 mcg ACBREAKFAST GT 06/30/17 06:30 07/21/17 06:29 07/05/17 05:56 Metoprolol Tartrate (Lopressor) 100 mg EVERY 12 HOURS GT 07/04/17 21:00 08/03/17 20:59 07/05/17 20:19 Nitroglycerin (Ntg) 0.4 mg Q5M PRN SL CHEST PAIN 06/30/17 00:45 07/21/17 20:59 Sodium Chloride 1,000 ml @ 75 mls/hr [id number] IV 07/04/17 17:30 08/03/17 17:29 07/05/17 20:18 REJI HOANG M.D. Jul 05, 2017 21:32
--- NOTE | 2017-07-05 22:53 | General Progress Note ---
Assessment/Plan Status: stable Assessment/Plan #. Anemia secondary to chronic disease. Anemia workup reviewed. --> Hemoglobin goal >7 --> Hemoglobin levels are above goal, no transfusion needed today --> Give blood transfusion if hemoglobin low or symptomatic #. Coagulopathy, malnutrition and vitamin K deficiency. --> Closely monitor. On anticoagulation as needed. --> Goal INR between 2 and 3 #. Leukocytosis, likely secondary to underlying infection, sepsis, and antibiotics. --> has resolved, wbc count wnl --> Remains on antibiotics. #. Acute hypoxemia, requiring intubation. --> Currently extubated #. Acute kidney injury. #. Dysphagia with gastrostomy tube. #. Cerebrovascular accident with right-sided hemiplegia. #. Acute toxic metabolic encephalopathy. #. Hypothyroidism. Subjective Date patient seen: Jul 05, 2017 HEENT: Denies: no symptoms, eye pain, blurred vision, tearing, double vision, ear pain, ear discharge, nose pain, nose congestion, throat pain, throat swelling, mouth pain, mouth swelling, other Cardiovascular: Denies: no symptoms, chest pain, edema, irregular heart rate, lightheadedness, palpitations, syncope, other Respiratory: Denies: no symptoms, cough, orthopnea, shortness of breath, SOB with excertion, SOB at rest, sputum, stridor, wheezing, other Gastrointestinal/Abdominal: Denies: no symptoms, abdomen distended, abdominal pain, black stools, tarry stools, blood in stool, constipated, diarrhea, difficulty swallowing, nausea, poor appetite, poor fluid intake, rectal bleeding , vomiting, other Genitourinary: Denies: no symptoms, burning, discharge, frequency, flank pain, hematuria, incontinence, pain, urgency, other Hematologic/Lymphatic: Reports: anemia Allergies: Coded Allergies: No Known Allergies (Unverified , 05/11/17) Subjective Hemodynamically stable. Resting in bed. No bipap req today. Objective Last 24 Hour Vital Signs Date Time Temp Pulse Resp B/P (MAP) Pulse Ox O2 Delivery O2 Flow Rate FiO2 07/05/17 21:12 136/65 07/05/17 20:19 105 136/65 07/05/17 20:00 98.7 85 19 134/67 96 Nasal Cannula 4.0 07/05/17 19:59 105 18 99 Nasal Cannula 3.0 36 07/05/17 19:57 Nasal Cannula 4.0 36 07/05/17 19:56 97 Nasal Cannula 4.0 36 07/05/17 19:50 103 20 97 Nasal Cannula 4.0 36 07/05/17 16:00 99 07/05/17 16:00 98.6 92 18 136/65 96 Nasal Cannula 4.0 07/05/17 15:48 79 20 99 Nasal Cannula 4.0 36 07/05/17 15:20 85 18 97 Nasal Cannula 4.0 36 07/05/17 14:28 138/71 07/05/17 12:00 87 07/05/17 12:00 98.6 87 18 138/71 98 Nasal Cannula 4.0 07/05/17 11:27 84 20 99 Nasal Cannula 4.0 36 07/05/17 11:19 99.2 07/05/17 11:01 74 18 97 Nasal Cannula 4.0 36 07/05/17 09:18 100 145/76 07/05/17 09:18 100 145/76 07/05/17 08:00 99.2 100 18 145/76 98 Nasal Cannula 4.0 07/05/17 08:00 106 07/05/17 07:20 82 20 99 Nasal Cannula 4.0 36 07/05/17 06:50 85 18 98 Nasal Cannula 4.0 36 07/05/17 06:49 Nasal Cannula 4.0 36 07/05/17 06:49 99 Nasal Cannula 4.0 36 07/05/17 05:14 153/77 07/05/17 04:00 93 07/05/17 04:00 98.6 90 22 153/77 97 Nasal Cannula 4.0 07/05/17 03:28 85 20 99 Nasal Cannula 4.0 36 07/05/17 03:14 80 18 99 Nasal Cannula 4.0 36 07/05/17 00:00 98.8 88 22 146/81 98 Nasal Cannula 4.0 07/05/17 00:00 90 07/04/17 23:07 Nasal Cannula 4.0 36 07/04/17 23:07 Nasal Cannula 4.0 36 Intake and Output 07/04/17 07/05/17 19:00 07:00 Intake Total 2177 ml 1720 ml Output Total 1100 ml 1000 ml Balance 1077 ml 720 ml Free Water 250 ml IV Total 1207 ml 1030 ml Tube Feeding 720 ml 600 ml Other 90 ml Output Urine Total 1100 ml 1000 ml # Bowel Movements 1 Laboratory Tests 07/05/17 04:10: White Blood Count 7.5, Red Blood Count 2.65L, Hemoglobin 7.9L, Hematocrit 24.5L , Mean Corpuscular Volume 92, Mean Corpuscular Hemoglobin 29.7, Mean Corpuscular Hemoglobin Concent 32.2, Red Cell Distribution Width 16.2H, Platelet Count 493H, Mean Platelet Volume 6.3L, Neutrophils (%) (Auto) , Lymphocytes (%) (Auto) , Monocytes (%) (Auto) , Eosinophils (%) (Auto) , Basophils (%) (Auto) , Differential Total Cells Counted 100, Neutrophils % ( Manual) 80H, Lymphocytes % (Manual) 12L, Monocytes % (Manual) 7, Eosinophils % ( Manual) 0, Basophils % (Manual) 0, Band Neutrophils 1, Platelet Estimate IncreasedH, Platelet Morphology Normal, Hypochromasia 1+, Anisocytosis 1+, Sodium Level 146H, Potassium Level 3.8, Chloride Level 110H, Carbon Dioxide Level 28, Anion Gap 8, Blood Urea Nitrogen 39H, Creatinine 1.5H, Estimat Glomerular Filtration Rate 47.1, Glucose Level 221H, Calcium Level 8.4L, Phosphorus Level 3.1, Magnesium Level 2.1, Total Bilirubin 0.1L, Aspartate Amino Transf (AST/SGOT) 20, Alanine Aminotransferase (ALT/SGPT) 25, Alkaline Phosphatase 97, Total Protein 6.6, Albumin 1.6L, Globulin 5.0, Albumin/Globulin Ratio 0.3L 07/05/17 19:35: Amikacin Level Trough [Pending] 07/05/17 21:00: Amikacin Level Peak [Pending] Height (Feet): 5 Height (Inches): 9.00 Weight (Pounds): 180 Dejan Copeland Jul 05, 2017 22:53
[2017-07-06] VITALS (7 sets, daily range): BP systolic 133–159; BP diastolic 70–81
[2017-07-06] MEDS: Albuterol/Ipratropium 3ml neb HHN SCH ×6 (03:47→22:45)
[2017-07-06] MEDS: HydrALAZINE 25mg tab GT SCH ×3 (05:40→21:15)
[2017-07-06] MEDS: NovoLOG Insulin Flexpen SUBQ SCH ×4 (05:42→23:39)
[2017-07-06 06:26] LABS: ALANINE AMINOTRANSFERASE 20 U/L (12-78); ALBUMIN 1.6 G/DL (3.4-5.0); ALBUMIN/GLOBULIN RATIO 0.3 (1.0-2.7); ALKALINE PHOSPHATASE 96 U/L (46-116); ANION GAP 9 mmol/L (5-15); ASPARTATE AMINO TRANSFERASE 23 U/L (15-37); BILIRUBIN,TOTAL 0.2 MG/DL (0.2-1.0); BLOOD UREA NITROGEN 37 mg/dL (7-18); CALCIUM 8.5 MG/DL (8.5-10.1); CARBON DIOXIDE 27 MMOL/L (21-32); CHLORIDE 109 MMOL/L (98-107); CREATININE 1.6 MG/DL (0.55-1.30); PHOSPHORUS 3.3 MG/DL (2.5-4.9); POTASSIUM 4.7 MMOL/L (3.5-5.1); SODIUM 145 MMOL/L (136-145)
[2017-07-06 06:29] LABS: BASOPHILS % (AUTO) 0.8 % (0.0-2.0); EOSINOPHILS % (AUTO) 2.5 % (0.0-3.0); HEMATOCRIT 34.6 % (42.0-52.0); HEMOGLOBIN 10.9 G/DL (14.2-18.0); LYMPHOCYTES % (AUTO) 14.7 % (20.0-45.0); MEAN CORPUSCULAR VOLUME 93 FL (80-99); MONOCYTES % (AUTO) 4.1 % (1.0-10.0); PLATELET COUNT 402 K/UL (150-450); RED BLOOD COUNT 3.74 M/UL (4.70-6.10); RED CELL DISTRIBUTION WIDTH 15.6 % (11.6-14.8); WHITE BLOOD COUNT 6.9 K/UL (4.8-10.8)
--- NOTE | 2017-07-06 08:15 | Progress Note ---
DATE: 07/05/2017 SUBJECTIVE: The patient is awake with eye contact without verbal response, history was obtained from son 00:22 fever and without distress. PHYSICAL EXAMINATION: VITAL SIGNS: Blood pressure 00:26, pulse is 94, respirations 24, and temperature 98.7. HEENT: Eyes were normal. ENT, mucous membranes were moist and intact. NECK: Supple with no JVD without lymph node enlargement. LUNGS: Clear. HEART: Normal sounds with regular beats. ABDOMEN: Soft and nontender with normal bowel sounds. Gastrostomy site is clean. EXTREMITIES: Warm without cyanosis, clubbing, or edema. LABORATORY AND DIAGNOSTIC DATA: Hemoglobin 7.9, hematocrit 24.5 with MCV of 92, WBC of 7.5, and platelets are 493,000. His BUN and creatinine are 39 and 1.5, respectively. Sodium is 146, potassium is 3.8, chloride 110, and CO2 is 28. His calcium is 8.4. His phosphorus is 3.1. Magnesium is 2.1. SGOT, SGPT, and alkaline phosphatase are normal. His albumin is 01:26. Total protein is 6.6. Chest x-ray 01:53 no change from prior exam with mild interstitial edema. IMPRESSION AND PLAN: The patient clinically continued to improve. He still has pulmonary congestion. 02:10 progressively improving. Repeat laboratory tests will be done in the a.m. We will continue with respiratory therapy and continue with antibiotics with amikacin and cefepime 2 g IV piggyback q.12 hours. Martina Morales M.D. DR: HARDY JOB#: [id number] CC:
[2017-07-06] MEDS: Aspirin Baby 81mg ORAL SCH (08:30)
[2017-07-06] MEDS: Cefepime HCl 2 GM in D5W 55 ML IVPB SCH (08:30)
[2017-07-06] MEDS: Heparin 5000 units/ml inj SUBQ SCH ×2 (08:32→21:17)
[2017-07-06] MEDS ORDERED: NS 275ml ONE (10:58)
[2017-07-06] MEDS ORDERED: Tubing Blood Filter IV ONE (10:58)
[2017-07-06] MEDS ORDERED: 1/2 NS 1000ml IV ONE ×2 (10:58→19:39)
--- NOTE | 2017-07-06 11:13 | Wound Nurse Progress Note ---
Wound RN Progress Note Wound Consult #1 Left lateral malleolus DTI pressure ulcer. Skin intact #2 Left medial malleolus DTI pressure ulcer. Skin intact #3 Left lateral foot DTI pressure ulcer. Skin intact #4 Left medial foot scattered DTI Revealed as unstageable pressure ulcer. No deterioration noted at this time #5 Left heel DTI pressure ulcer. Skin intact #6 Right heel DTI Revealed as unstageable pressure ulcer. No deterioration noted at this time #7 Right lateral malleolus DTI Pressure ulcer. Skin intact #8 Right dorsal foot DTI pressure ulcer. Skin intact #9 Right medial malleolus SDTI pressure ulcer. Skin intact #10 Sacrococcygeal unstageable pressure ulcer. No deterioration noted at this time #11 Chemical burn on perineal area. Good progress noted Reassessed this Pt today No deterioration noted. Will cont the same wound care treatment and recommendation below. Recommendation -Local wound care per protocol -Keep clean and dry -Optimize nutrition -Turn and reposition -Offload both heels -Heel protector on both heels -Low air loss P200 mattress -Assess and f/u accordingly for any changes GABI RAMIREZ RN Jul 06, 2017 11:13
--- NOTE | 2017-07-06 11:39 | Pulmonology Progress Note ---
Assessment/Plan Problems: (1) Acute renal failure (2) Aspiration pneumonia (3) Feeding by G-tube (4) History of CVA (cerebrovascular accident) (5) BOOGIE (acute kidney injury) Assessment/Plan cxr better comfortable LLL atelectasis resolved off bipap now renal failure improving on cefepime and amikacin check eclectrolytes d/w Dr almanza, will keep until sunday and if left lung still open, we will send to assisted, otherwise he will get trached. Subjective ROS Limited/Unobtainable: No Interval Events: open eyes, comfortable Allergies: Coded Allergies: No Known Allergies (Unverified , 05/11/17) Objective Last 24 Hour Vital Signs Date Time Temp Pulse Resp B/P (MAP) Pulse Ox O2 Delivery O2 Flow Rate FiO2 07/06/17 08:29 95 148/72 07/06/17 08:29 95 148/72 07/06/17 08:03 89 22 98 Nasal Cannula 3.0 32 07/06/17 08:00 99 07/06/17 08:00 98.2 95 20 148/72 99 Nasal Cannula 3.0 07/06/17 07:53 97 Nasal Cannula 3.0 32 07/06/17 07:53 Nasal Cannula 3.0 32 07/06/17 07:53 89 22 97 Nasal Cannula 3.0 07/06/17 05:40 159/81 07/06/17 04:00 98.8 99 20 159/81 94 Nasal Cannula 4.0 07/06/17 04:00 98 07/06/17 03:59 88 22 96 Nasal Cannula 3.0 36 07/06/17 03:49 93 24 94 Nasal Cannula 3.0 07/06/17 00:00 100 07/06/17 00:00 98.4 89 20 144/70 96 Nasal Cannula 4.0 07/05/17 23:37 92 20 98 Nasal Cannula 3.0 36 07/05/17 23:19 94 24 94 Nasal Cannula 3.0 07/05/17 21:12 136/65 07/05/17 20:19 105 136/65 07/05/17 20:00 98.7 85 19 134/67 96 Nasal Cannula 4.0 07/05/17 20:00 98 07/05/17 19:59 105 18 99 Nasal Cannula 3.0 36 07/05/17 19:57 Nasal Cannula 4.0 36 07/05/17 19:56 97 Nasal Cannula 4.0 36 07/05/17 19:50 103 20 97 Nasal Cannula 4.0 36 07/05/17 16:00 99 07/05/17 16:00 98.6 92 18 136/65 96 Nasal Cannula 4.0 07/05/17 15:48 79 20 99 Nasal Cannula 4.0 36 07/05/17 15:20 85 18 97 Nasal Cannula 4.0 36 07/05/17 14:28 138/71 07/05/17 12:00 87 07/05/17 12:00 98.6 87 18 138/71 98 Nasal Cannula 4.0 Intake and Output 07/05/17 07/06/17 19:00 07:00 Intake Total 1660 ml 1769 ml Output Total 1250 ml 1500 ml Balance 410 ml 269 ml Free Water 100 ml IV Total 600 ml 1109 ml Tube Feeding 660 ml 540 ml Blood Product 300 ml Other 120 ml Output Urine Total 1250 ml 1500 ml # Bowel Movements 1 Objective General Appearance: no acute distress HEENT: normocephalic, atraumatic Respiratory/Chest: lungs clear, no respiratory distress, no accessory muscle use Cardiovascular: normal rate, no JVD, CL-femoral intact Abdomen: normal bowel sounds, soft, non tender Extremities: no edema Neurologic/Psychiatric: alert, responsive Musculoskeletal: normal muscle bulk Laboratory Tests 07/05/17 19:35: Amikacin Level Trough 15.8H 07/05/17 21:00: Amikacin Level Peak 14.6 07/06/17 03:35: White Blood Count 6.9, Red Blood Count 3.74L, Hemoglobin 10.9#L, Hematocrit 34.6 #L, Mean Corpuscular Volume 93, Mean Corpuscular Hemoglobin 29.2, Mean Corpuscular Hemoglobin Concent 31.6L, Red Cell Distribution Width 15.6H, Platelet Count 402, Mean Platelet Volume 5.8L, Neutrophils (%) (Auto) 78.0H, Lymphocytes (%) (Auto) 14.7L, Monocytes (%) (Auto) 4.1, Eosinophils (%) (Auto) 2.5, Basophils (%) (Auto) 0.8, Sodium Level 145, Potassium Level 4.7, Chloride Level 109H, Carbon Dioxide Level 27, Anion Gap 9, Blood Urea Nitrogen 37H, Creatinine 1.6H, Estimat Glomerular Filtration Rate 43.7, Glucose Level 209H, Calcium Level 8.5, Phosphorus Level 3.3, Magnesium Level 2.0, Total Bilirubin 0.2, Aspartate Amino Transf (AST/SGOT) 23, Alanine Aminotransferase (ALT/SGPT) 20, Alkaline Phosphatase 96, Total Protein 6.4, Albumin 1.6L, Globulin 4.8, Albumin/Globulin Ratio 0.3L Current Medications Medications (Trade) Dose Ordered Sig/Willem Route PRN Reason Start Time Stop Time Status Last Admin Dose Admin Acetaminophen (Tylenol) 500 mg Q6H PRN ORAL MILD PAIN (1-4). NTE 3GM/DAY 06/30/17 15:00 07/30/17 14:59 Acetaminophen (Tylenol) 650 mg DAILY PRN ORAL Temp > 100.5 06/30/17 09:00 07/26/17 20:59 07/05/17 10:20 Acetaminophen (Tylenol) 650 mg Q6H PRN ORAL MODERATE PAIN (5-7) 06/30/17 15:00 07/30/17 14:59 07/03/17 17:35 Acetylcysteine (Mucomyst) 100 mg Q4HRT [facility] 07/02/17 15:00 07/30/17 22:59 07/06/17 10:45 Albuterol/ Ipratropium (Albuterol/ Ipratropium) 3 ml Q4HRT N 07/02/17 03:00 07/07/17 02:59 07/06/17 10:45 Amikacin Protocol (Amikacin pharmacy to dose) 1 ea DAILY PRN MISC Per rx protocol 07/03/17 12:30 08/02/17 12:29 Amikacin Sulfate 500 mg/Sodium Chloride 112 ml @ 224 mls/hr Q18H IV 07/03/17 14:00 07/10/17 23:59 07/05/17 20:17 Amlodipine Besylate (Norvasc) 10 mg DAILY GT 06/30/17 09:00 07/21/17 08:59 07/06/17 08:29 Aspirin (ASA) 81 mg DAILY ORAL 06/30/17 09:00 07/30/17 08:59 07/06/17 08:30 Bisacodyl (Dulcolax) 10 mg DAILYPRN PRN RECTAL constipationIF MOM INEFFECTIVE 06/30/17 21:00 07/26/17 20:59 Cefepime HCl 2 gm/ Dextrose 55 ml @ 110 mls/hr Q24H IVPB 06/30/17 06:00 07/07/17 05:59 07/06/17 08:30 Clonidine HCl (Catapres Tab) 0.1 mg Q4H PRN GT bp of 160 syst and above 06/30/17 01:00 07/21/17 16:59 Collagenase (Santyl) 1 applic DAILY TOPIC 06/30/17 09:00 07/29/17 08:59 07/06/17 08:30 Dextrose (Dextrose 50%) STAT PRN IV Hypoglycemia 06/30/17 21:00 07/26/17 20:59 Famotidine (Pepcid) 20 mg DAILY ORAL 06/30/17 09:00 07/22/17 08:59 07/06/17 08:29 Heparin Sodium (Porcine) (Heparin 5000 units/ml) 5,000 units EVERY 12 HOURS SUBQ 06/30/17 09:00 07/21/17 08:59 07/06/17 08:32 Hydralazine HCl (Apresoline) 25 mg Q8HR GT 06/30/17 14:00 07/21/17 17:59 07/06/17 05:40 Insulin Aspart (NovoLOG) EVERY 6 HOURS SUBQ 06/30/17 00:45 07/21/17 06:29 07/06/17 05:42 Insulin Detemir (Levemir) 15 units QHS SUBQ 07/04/17 21:00 08/03/17 20:59 07/05/17 20:28 Levothyroxine Sodium (Synthroid) 50 mcg ACBREAKFAST GT 06/30/17 06:30 07/21/17 06:29 07/06/17 05:39 Metoprolol Tartrate (Lopressor) 100 mg EVERY 12 HOURS GT 07/04/17 21:00 08/03/17 20:59 07/06/17 08:29 Nitroglycerin (Ntg) 0.4 mg Q5M PRN SL CHEST PAIN 06/30/17 00:45 07/21/17 20:59 Sodium Chloride 1,000 ml @ 75 mls/hr [id number] IV 07/04/17 17:30 08/03/17 17:29 07/06/17 08:30 JESSE ZAVALA Jul 06, 2017 11:39
--- NOTE | 2017-07-06 12:32 | Diagnostic Imaging Report ---
Indication: Hypertension Technique: XRAY Chest 1v Comparison: 07/04/2017 Findings: Heart size and mediastinal contours are stable. There is persistent interstitial opacification/edema. No new focal airspace consolidation. No pleural effusion or pneumothorax. No acute osseous abnormality seen. Impression: Persistent interstitial opacification/edema. Unchanged from exam 2 days prior
--- NOTE | 2017-07-06 12:48 | Infectious Diseases Prog Note ---
Assessment/Plan Assessment/Plan A: Fever-low grade, SP ( improved after adding Amikacin ) PSA Pneumonia Sepsis 2ry to HCAP, improving CXR 06/26: Probable mild CHF. Please correlate clinically -CXR 06/22: Lungs and pleural spaces are clear -CXR: There is infiltrate in the left infrahilar region. There is some atelectasis at the right lung base. There is also retrocardiac consolidation -sp cx: +3 MDR PSA (S. Cefepime, Gentamicin/Amikacin) -u./a WBC 5-10, nit neg, leuk est +1, ucx 10-20K C. albicans (colonzier) -rectal wound cx: ESBL E.coli, PsA (colonizers)- no signs of infection 07/22 CoNS bacteremia- suspect contaminant 06/20 +07/22, 06/21 Neg x4 leukocytosis-resolved Lactic acidosis- resolved Cdiff neg 06/25 -Neg: HIV ag/ab, RPR, CrAg serum, FTA-ab Acute hypoxic resp failure s/p intubation 06/20- s/p extubation 06/25 BOOGIE, improving Recent gastritis (dx by EGD) Hx of encephalopathy -05/22 CT head: No evidence of acute intracranial hemorrhage, mass effect or cortical edema. MRI may be obtained for more sensitive evaluation as clinically indicated. Stable chronic infarct in the right frontal lobe. Cerebral and cerebellar atrophy greater than expected for age. Clinical correlation recommended. Mild periventricular hypoattenuation suggestive of chronic ischemic microvascular changes. -previous admission:nical correlation recommended. Mild periventricular hypoattenuation suggestive of chronic ischemic microvascular changes. Small area of right frontal encephalomalacia suggestive of old infarct. -UDS neg -TSH normal -Brain MRI: Chronic and age-related changes. Old right frontal infarct. Negative for acute intracranial bleed, mass effect, or acute infarct hx of VRE and MRSA colonization HTN CKD DM2 bipolar dz/schizophrenia GERD cardiac arrhythmia Dementia CAD with prior PR MS osteoporosis asthma VIt D def Hypothyroidism HLD dysphagia s/p GT R MCA CVA with left hemiplegia s/p trach Plan: -Continue Cefepime d# 14 /17 , add Amikacin d# 4 / 7 ( w monitor of Cr ) -06/25 SP IV vancomycin #5, Amikacin #5 -16 SP Meropenem #3 -1/4 SP Amikacin x1 -Monitor CBC/BMP, temperatures -aspiration precautions - wound care Subjective Constitutional: Denies: no symptoms, fever, chills, fatigue, anorexia, drenching sweats, other Allergies: Coded Allergies: No Known Allergies (Unverified , 05/11/17) Subjective Afebrile Objective Vital Signs Last 24 Hour Vital Signs Date Time Temp Pulse Resp B/P (MAP) Pulse Ox O2 Delivery O2 Flow Rate FiO2 07/06/17 11:00 90 22 97 Nasal Cannula 3.0 32 07/06/17 10:45 91 21 95 Nasal Cannula 22.0 07/06/17 08:29 95 148/72 07/06/17 08:29 95 148/72 07/06/17 08:03 89 22 98 Nasal Cannula 3.0 32 07/06/17 08:00 99 07/06/17 08:00 98.2 95 20 148/72 99 Nasal Cannula 3.0 07/06/17 07:53 97 Nasal Cannula 3.0 32 07/06/17 07:53 Nasal Cannula 3.0 32 07/06/17 07:53 89 22 97 Nasal Cannula 3.0 07/06/17 05:40 159/81 07/06/17 04:00 98.8 99 20 159/81 94 Nasal Cannula 4.0 07/06/17 04:00 98 07/06/17 03:59 88 22 96 Nasal Cannula 3.0 36 07/06/17 03:49 93 24 94 Nasal Cannula 3.0 07/06/17 00:00 100 07/06/17 00:00 98.4 89 20 144/70 96 Nasal Cannula 4.0 07/05/17 23:37 92 20 98 Nasal Cannula 3.0 36 07/05/17 23:19 94 24 94 Nasal Cannula 3.0 07/05/17 21:12 136/65 07/05/17 20:19 105 136/65 07/05/17 20:00 98.7 85 19 134/67 96 Nasal Cannula 4.0 07/05/17 20:00 98 07/05/17 19:59 105 18 99 Nasal Cannula 3.0 36 07/05/17 19:57 Nasal Cannula 4.0 36 07/05/17 19:56 97 Nasal Cannula 4.0 36 07/05/17 19:50 103 20 97 Nasal Cannula 4.0 36 07/05/17 16:00 99 07/05/17 16:00 98.6 92 18 136/65 96 Nasal Cannula 4.0 07/05/17 15:48 79 20 99 Nasal Cannula 4.0 36 07/05/17 15:20 85 18 97 Nasal Cannula 4.0 36 07/05/17 14:28 138/71 Height (Feet): 5 Height (Inches): 9.00 Weight (Pounds): 180 HEENT: mucous membranes moist Respiratory/Chest: lungs clear Cardiovascular: regular rhythm Laboratory Tests Test 07/05/17 19:35 07/05/17 21:00 07/06/17 03:35 Amikacin Level Trough 15.8 MG/L (4.0-8.0) H Amikacin Level Peak 14.6 MG/L White Blood Count 6.9 K/UL (4.8-10.8) Red Blood Count 3.74 M/UL (4.70-6.10) L Hemoglobin 10.9 G/DL (14.2-18.0) #L Hematocrit 34.6 % (42.0-52.0) #L Mean Corpuscular Volume 93 FL (80-99) Mean Corpuscular Hemoglobin 29.2 PG (27.0-31.0) Mean Corpuscular Hemoglobin Concent 31.6 G/DL (32.0-36.0) L Red Cell Distribution Width 15.6 % (11.6-14.8) H Platelet Count 402 K/UL (150-450) Mean Platelet Volume 5.8 FL (6.5-10.1) L Neutrophils (%) (Auto) 78.0 % (45.0-75.0) H Lymphocytes (%) (Auto) 14.7 % (20.0-45.0) L Monocytes (%) (Auto) 4.1 % (1.0-10.0) Eosinophils (%) (Auto) 2.5 % (0.0-3.0) Basophils (%) (Auto) 0.8 % (0.0-2.0) Sodium Level 145 MMOL/L (136-145) Potassium Level 4.7 MMOL/L (3.5-5.1) Chloride Level 109 MMOL/L (98-107) H Carbon Dioxide Level 27 MMOL/L (21-32) Anion Gap 9 mmol/L (5-15) Blood Urea Nitrogen 37 mg/dL (7-18) H Creatinine 1.6 MG/DL (0.55-1.30) H Estimat Glomerular Filtration Rate 43.7 mL/min (>60) Glucose Level 209 MG/DL (74-106) H Calcium Level 8.5 MG/DL (8.5-10.1) Phosphorus Level 3.3 MG/DL (2.5-4.9) Magnesium Level 2.0 MG/DL (1.8-2.4) Total Bilirubin 0.2 MG/DL (0.2-1.0) Aspartate Amino Transf (AST/SGOT) 23 U/L (15-37) Alanine Aminotransferase (ALT/SGPT) 20 U/L (12-78) Alkaline Phosphatase 96 U/L (46-116) Total Protein 6.4 G/DL (6.4-8.2) Albumin 1.6 G/DL (3.4-5.0) L Globulin 4.8 g/dL Albumin/Globulin Ratio 0.3 (1.0-2.7) L Current Medications Medications (Trade) Dose Ordered Sig/Willem Route PRN Reason Start Time Stop Time Status Last Admin Dose Admin Acetaminophen (Tylenol) 500 mg Q6H PRN ORAL MILD PAIN (1-4). NTE 3GM/DAY 06/30/17 15:00 07/30/17 14:59 Acetaminophen (Tylenol) 650 mg DAILY PRN ORAL Temp > 100.5 06/30/17 09:00 07/26/17 20:59 07/05/17 10:20 Acetaminophen (Tylenol) 650 mg Q6H PRN ORAL MODERATE PAIN (5-7) 06/30/17 15:00 07/30/17 14:59 07/03/17 17:35 Acetylcysteine (Mucomyst) 100 mg Q4HRT N 07/02/17 15:00 07/30/17 22:59 07/06/17 10:45 Albuterol/ Ipratropium (Albuterol/ Ipratropium) 3 ml Q4HRT N 07/02/17 03:00 07/07/17 02:59 07/06/17 10:45 Amikacin Protocol (Amikacin pharmacy to dose) 1 ea DAILY PRN MISC Per rx protocol 07/03/17 12:30 08/02/17 12:29 Amlodipine Besylate (Norvasc) 10 mg DAILY GT 06/30/17 09:00 07/21/17 08:59 07/06/17 08:29 Aspirin (ASA) 81 mg DAILY ORAL 06/30/17 09:00 07/30/17 08:59 07/06/17 08:30 Bisacodyl (Dulcolax) 10 mg DAILYPRN PRN RECTAL constipationIF MOM INEFFECTIVE 06/30/17 21:00 07/26/17 20:59 Cefepime HCl 2 gm/ Dextrose 55 ml @ 110 mls/hr Q24H IVPB 06/30/17 06:00 07/07/17 05:59 07/06/17 08:30 Clonidine HCl (Catapres Tab) 0.1 mg Q4H PRN GT bp of 160 syst and above 06/30/17 01:00 07/21/17 16:59 Collagenase (Santyl) 1 applic DAILY TOPIC 06/30/17 09:00 07/29/17 08:59 07/06/17 08:30 Dextrose (Dextrose 50%) STAT PRN IV Hypoglycemia 06/30/17 21:00 07/26/17 20:59 Famotidine (Pepcid) 20 mg DAILY ORAL 06/30/17 09:00 07/22/17 08:59 07/06/17 08:29 Heparin Sodium (Porcine) (Heparin 5000 units/ml) 5,000 units EVERY 12 HOURS SUBQ 06/30/17 09:00 07/21/17 08:59 07/06/17 08:32 Hydralazine HCl (Apresoline) 25 mg Q8HR GT 06/30/17 14:00 07/21/17 17:59 07/06/17 05:40 Insulin Aspart (NovoLOG) EVERY 6 HOURS SUBQ 06/30/17 00:45 07/21/17 06:29 07/06/17 12:18 Insulin Detemir (Levemir) 15 units QHS SUBQ 07/04/17 21:00 08/03/17 20:59 07/05/17 20:28 Levothyroxine Sodium (Synthroid) 50 mcg ACBREAKFAST GT 06/30/17 06:30 07/21/17 06:29 07/06/17 05:39 Metoprolol Tartrate (Lopressor) 100 mg EVERY 12 HOURS GT 07/04/17 21:00 08/03/17 20:59 07/06/17 08:29 Nitroglycerin (Ntg) 0.4 mg Q5M PRN SL CHEST PAIN 06/30/17 00:45 07/21/17 20:59 Sodium Chloride 1,000 ml @ 75 mls/hr [id number] IV 07/04/17 17:30 08/03/17 17:29 07/06/17 08:30 REJI HOANG M.D. Jul 06, 2017 12:48
--- NOTE | 2017-07-06 15:41 | Nephrology Progress Note ---
Assessment/Plan Problem List: (1) Acute renal failure (2) Respiratory failure requiring intubation (3) Urosepsis (4) Anemia Assessment: worsening (5) Hypoalbuminemia Assessment BOOGIE (acute kidney injury), Cr 1.6 today , lower H&H lower Respiratory failure requiring intubation Respiratory failure with hypoxia Aspiration pneumonia, Urosepsis Anemia ACS (acute coronary syndrome), Non St Elevation NH CHF (congestive heart failure) Acute encephalopathy GT feeding LLL atelectesis worsening, Plan plan resp support will need tracheostomy to prevent worsening atelectaisis transfused avoid Nephrotoxics monitor renal parameters Keep BP and BS in check Optimize pulmonary and cardiac support Subjective ROS Limited/Unobtainable: No Constitutional: Reports: malaise, weakness Objective Objective Last 24 Hour Vital Signs Date Time Temp Pulse Resp B/P (MAP) Pulse Ox O2 Delivery O2 Flow Rate FiO2 07/06/17 14:40 90 23 99 Nasal Cannula 3.0 32 07/06/17 14:30 87 20 97 Nasal Cannula 22.0 07/06/17 13:53 151/74 07/06/17 12:00 94 07/06/17 12:00 98.0 87 20 151/74 93 Nasal Cannula 3.0 07/06/17 11:00 90 22 97 Nasal Cannula 3.0 32 07/06/17 10:45 91 21 95 Nasal Cannula 22.0 07/06/17 08:29 95 148/72 07/06/17 08:29 95 148/72 07/06/17 08:03 89 22 98 Nasal Cannula 3.0 32 07/06/17 08:00 99 07/06/17 08:00 98.2 95 20 148/72 99 Nasal Cannula 3.0 07/06/17 07:53 97 Nasal Cannula 3.0 32 07/06/17 07:53 Nasal Cannula 3.0 32 07/06/17 07:53 89 22 97 Nasal Cannula 3.0 07/06/17 05:40 159/81 07/06/17 04:00 98.8 99 20 159/81 94 Nasal Cannula 4.0 07/06/17 04:00 98 07/06/17 03:59 88 22 96 Nasal Cannula 3.0 36 07/06/17 03:49 93 24 94 Nasal Cannula 3.0 07/06/17 00:00 100 07/06/17 00:00 98.4 89 20 144/70 96 Nasal Cannula 4.0 07/05/17 23:37 92 20 98 Nasal Cannula 3.0 36 07/05/17 23:19 94 24 94 Nasal Cannula 3.0 07/05/17 21:12 136/65 07/05/17 20:19 105 136/65 07/05/17 20:00 98.7 85 19 134/67 96 Nasal Cannula 4.0 07/05/17 20:00 98 07/05/17 19:59 105 18 99 Nasal Cannula 3.0 36 07/05/17 19:57 Nasal Cannula 4.0 36 07/05/17 19:56 97 Nasal Cannula 4.0 36 07/05/17 19:50 103 20 97 Nasal Cannula 4.0 36 07/05/17 16:00 99 07/05/17 16:00 98.6 92 18 136/65 96 Nasal Cannula 4.0 07/05/17 15:48 79 20 99 Nasal Cannula 4.0 36 Intake and Output 07/05/17 07/06/17 19:00 07:00 Intake Total 1660 ml 1769 ml Output Total 1250 ml 1500 ml Balance 410 ml 269 ml Free Water 100 ml IV Total 600 ml 1109 ml Tube Feeding 660 ml 540 ml Blood Product 300 ml Other 120 ml Output Urine Total 1250 ml 1500 ml # Bowel Movements 1 Laboratory Tests 07/05/17 19:35: Amikacin Level Trough 15.8H 07/05/17 21:00: Amikacin Level Peak 14.6 07/06/17 03:35: White Blood Count 6.9, Red Blood Count 3.74L, Hemoglobin 10.9#L, Hematocrit 34.6 #L, Mean Corpuscular Volume 93, Mean Corpuscular Hemoglobin 29.2, Mean Corpuscular Hemoglobin Concent 31.6L, Red Cell Distribution Width 15.6H, Platelet Count 402, Mean Platelet Volume 5.8L, Neutrophils (%) (Auto) 78.0H, Lymphocytes (%) (Auto) 14.7L, Monocytes (%) (Auto) 4.1, Eosinophils (%) (Auto) 2.5, Basophils (%) (Auto) 0.8, Sodium Level 145, Potassium Level 4.7, Chloride Level 109H, Carbon Dioxide Level 27, Anion Gap 9, Blood Urea Nitrogen 37H, Creatinine 1.6H, Estimat Glomerular Filtration Rate 43.7, Glucose Level 209H, Calcium Level 8.5, Phosphorus Level 3.3, Magnesium Level 2.0, Total Bilirubin 0.2, Aspartate Amino Transf (AST/SGOT) 23, Alanine Aminotransferase (ALT/SGPT) 20, Alkaline Phosphatase 96, Total Protein 6.4, Albumin 1.6L, Globulin 4.8, Albumin/Globulin Ratio 0.3L Height (Feet): 5 Height (Inches): 9.00 Weight (Pounds): 180 General Appearance: no apparent distress, lethargic Cardiovascular: tachycardia Respiratory/Chest: decreased breath sounds Abdomen: distended Objective no other changes GARCÍA READ Jul 06, 2017 15:41
[2017-07-06] MEDS ORDERED: Nitroglycerin Subl 0.4mg tab SL PRN (18:45)
[2017-07-06] MEDS ORDERED: Acetaminophen 500mg (ES) tab ORAL PRN (19:01)
[2017-07-06] MEDS ORDERED: Tubing IV Secondary IV ONE (19:39)
[2017-07-06] MEDS: Levemir Flexpen SUBQ SCH (21:58)
--- NOTE | 2017-07-06 22:30 | Progress Note ---
DATE: 07/06/2017 SUBJECTIVE: The patient is awake and alert. He has a brief eye contact and short attention span and cough. PHYSICAL EXAMINATION: VITAL SIGNS: Blood pressure 148/72, his pulse is 89, respirations 22, and temperature 98.2. HEENT: Eyes were normal. ENT, mucous membranes were moist and intact. NECK: Supple with no JVD without lymph nodes. LUNGS: Clear anteriorly and laterally, but bilateral rhonchi at both bases. HEART: Normal sounds with regular beats. There is no tachycardia at rest. ABDOMEN: Soft and nontender with normal bowel sounds. Gastrostomy site is clean. EXTREMITIES: Warm without cyanosis, clubbing, or edema. LABORATORY AND DIAGNOSTIC DATA: Chest x-ray was done today, but it is not available. Hemoglobin 10.9, hematocrit 34.6, MCV of 93, WBC of 6.9, and platelets are 402. His BUN and creatinine is 77 and 1.6, respectively. Sodium is 145, potassium 4.7, chloride 109, and CO2 of 27. His calcium is 8.5. Phosphorus 3.3. His magnesium is 2.2. His albumin is 1.6 and total protein is 6.4. IMPRESSION AND PLAN: The patient had collapse of the left lower lobe that was successfully opened with respiratory therapy and antibiotics; however, he is still a high risk for left lower lobe collapse. done today, x-ray to determine the initial possibility of the patient. The case has been discussed in detail with the intervention specialist. Martina Morales M.D. DR: HARDY JOB#: [id number] CC:
--- NOTE | 2017-07-06 23:24 | General Progress Note ---
Assessment/Plan Status: stable Assessment/Plan #. Anemia secondary to chronic disease. Anemia workup reviewed. --> Hemoglobin goal >7 --> Hemoglobin levels are above goal, no transfusion needed today --> Give blood transfusion if hemoglobin low or symptomatic #. Coagulopathy, malnutrition and vitamin K deficiency. --> Closely monitor. On anticoagulation as needed. --> Goal INR between 2 and 3 #. Leukocytosis, likely secondary to underlying infection, sepsis, and antibiotics. --> has resolved, wbc count wnl --> Remains on antibiotics. #. Acute hypoxemia, requiring intubation. --> Currently extubated #. Acute kidney injury. #. Dysphagia with gastrostomy tube. #. Cerebrovascular accident with right-sided hemiplegia. #. Acute toxic metabolic encephalopathy. #. Hypothyroidism. Subjective Date patient seen: Jul 06, 2017 Constitutional: Denies: no symptoms, chills, diaphoresis, fever, malaise, weakness, other HEENT: Denies: no symptoms, eye pain, blurred vision, tearing, double vision, ear pain, ear discharge, nose pain, nose congestion, throat pain, throat swelling, mouth pain, mouth swelling, other Cardiovascular: Denies: no symptoms, chest pain, edema, irregular heart rate, lightheadedness, palpitations, syncope, other Respiratory: Denies: no symptoms, cough, orthopnea, shortness of breath, SOB with excertion, SOB at rest, sputum, stridor, wheezing, other Gastrointestinal/Abdominal: Denies: no symptoms, abdomen distended, abdominal pain, black stools, tarry stools, blood in stool, constipated, diarrhea, difficulty swallowing, nausea, poor appetite, poor fluid intake, rectal bleeding , vomiting, other Genitourinary: Denies: no symptoms, burning, discharge, frequency, flank pain, hematuria, incontinence, pain, urgency, other Hematologic/Lymphatic: Reports: anemia Allergies: Coded Allergies: No Known Allergies (Unverified , 05/11/17) Subjective H/H stable. No fever or chills. No new events. Objective Last 24 Hour Vital Signs Date Time Temp Pulse Resp B/P (MAP) Pulse Ox O2 Delivery O2 Flow Rate FiO2 07/06/17 22:52 99 23 99 Nasal Cannula 3.0 32 07/06/17 22:45 93 20 98 Nasal Cannula 22.0 07/06/17 21:15 95 133/77 1/19/18 21:15 133/77 07/06/17 20:12 95 23 99 Nasal Cannula 3.0 32 07/06/17 20:05 98 Nasal Cannula 3.0 32 07/06/17 20:05 Nasal Cannula 3.0 32 07/06/17 20:02 88 20 98 Nasal Cannula 22.0 07/06/17 20:00 94 Nasal Cannula 4.0 07/06/17 19:22 98.1 91 19 133/77 94 Room Air 07/06/17 16:00 96.0 96 20 142/70 94 Nasal Cannula 3.0 07/06/17 14:40 90 23 99 Nasal Cannula 3.0 32 07/06/17 14:30 87 20 97 Nasal Cannula 22.0 07/06/17 13:53 151/74 07/06/17 12:00 94 07/06/17 12:00 98.0 87 20 151/74 93 Nasal Cannula 3.0 07/06/17 11:00 90 22 97 Nasal Cannula 3.0 32 07/06/17 10:45 91 21 95 Nasal Cannula 22.0 07/06/17 08:29 95 148/72 07/06/17 08:29 95 148/72 07/06/17 08:03 89 22 98 Nasal Cannula 3.0 32 07/06/17 08:00 99 07/06/17 08:00 98.2 95 20 148/72 99 Nasal Cannula 3.0 07/06/17 07:53 97 Nasal Cannula 3.0 32 07/06/17 07:53 Nasal Cannula 3.0 32 07/06/17 07:53 89 22 97 Nasal Cannula 3.0 07/06/17 05:40 159/81 07/06/17 04:00 98.8 99 20 159/81 94 Nasal Cannula 4.0 07/06/17 04:00 98 07/06/17 03:59 88 22 96 Nasal Cannula 3.0 36 07/06/17 03:49 93 24 94 Nasal Cannula 3.0 07/06/17 00:00 100 07/06/17 00:00 98.4 89 20 144/70 96 Nasal Cannula 4.0 07/05/17 23:37 92 20 98 Nasal Cannula 3.0 36 Intake and Output 07/05/17 07/06/17 19:00 07:00 Intake Total 1660 ml 1769 ml Output Total 1250 ml 1500 ml Balance 410 ml 269 ml Free Water 100 ml IV Total 600 ml 1109 ml Tube Feeding 660 ml 540 ml Blood Product 300 ml Other 120 ml Output Urine Total 1250 ml 1500 ml # Bowel Movements 1 Laboratory Tests 07/06/17 03:35: White Blood Count 6.9, Red Blood Count 3.74L, Hemoglobin 10.9#L, Hematocrit 34.6 #L, Mean Corpuscular Volume 93, Mean Corpuscular Hemoglobin 29.2, Mean Corpuscular Hemoglobin Concent 31.6L, Red Cell Distribution Width 15.6H, Platelet Count 402, Mean Platelet Volume 5.8L, Neutrophils (%) (Auto) 78.0H, Lymphocytes (%) (Auto) 14.7L, Monocytes (%) (Auto) 4.1, Eosinophils (%) (Auto) 2.5, Basophils (%) (Auto) 0.8, Sodium Level 145, Potassium Level 4.7, Chloride Level 109H, Carbon Dioxide Level 27, Anion Gap 9, Blood Urea Nitrogen 37H, Creatinine 1.6H, Estimat Glomerular Filtration Rate 43.7, Glucose Level 209H, Calcium Level 8.5, Phosphorus Level 3.3, Magnesium Level 2.0, Total Bilirubin 0.2, Aspartate Amino Transf (AST/SGOT) 23, Alanine Aminotransferase (ALT/SGPT) 20, Alkaline Phosphatase 96, Total Protein 6.4, Albumin 1.6L, Globulin 4.8, Albumin/Globulin Ratio 0.3L Height (Feet): 5 Height (Inches): 9.00 Weight (Pounds): 180 General Appearance: no apparent distress Cardiovascular: normal rate Respiratory/Chest: decreased breath sounds Abdomen: soft Dejan Copeland Jul 06, 2017 23:24
[2017-07-07 03:52] VITALS: BP 150/79
[2017-07-07] MEDS: HydrALAZINE 25mg tab GT SCH ×3 (05:47→21:22)
[2017-07-07] MEDS: NovoLOG Insulin Flexpen SUBQ SCH ×4 (05:50→23:36)
[2017-07-07] MEDS ORDERED: Cefepime HCl 2 GM in D5W 55 ML IVPB SCH (06:00)
--- NOTE | 2017-07-07 07:18 | Pulmonology Progress Note ---
Assessment/Plan Assessment/Plan ASSESSMENT Sepsis acute RF requiring intubation s/p extubation 06/25 LLL atelectasis Acute renal failure-resolving Dysphagia, G tube s/p multiple lacunar strokes with quadriplegia, expressive aphasia and dementia HTN Hyperlipidemia DM anemia requiring blood transfusion PLAN OF CARE FIORELLA status CXR wilfrid,R LLL atelectasis resolved Off BiPAP, O2 titrate, pulm toilet, Mucomyst Abx, ID follows Sputum + Pseudomonas, bl cx + SCON, repeated negative, C dif negative, urine cx + chinedu Per discussion with MD keep till Sunday if CXR with still open lung will dc, otherwise will need trach BP management with Hydralazine and BB BS management with levemir and SS of insulin Neuro eval appreciated, no additional, neuro diagnostic studies necessary, recommended supportive care Nephro follows, creat trending down IVF, monitor lytes, correct as needed, monitor renal parameters avoid nephrotoxic monitor HH, transfuse prn per discussion with PMD keep till Sunday fup with CXR on Sunday if R lung remains open, will dc if not- will need trach case discussed and evaluated by supervising physician Subjective Allergies: Coded Allergies: No Known Allergies (Unverified , 05/11/17) Subjective transferred to MS floor on O2 via NC, sat stable CXR better Objective Last 24 Hour Vital Signs Date Time Temp Pulse Resp B/P (MAP) Pulse Ox O2 Delivery O2 Flow Rate FiO2 07/07/17 05:47 150/79 07/07/17 04:00 97 Nasal Cannula 3.0 07/07/17 03:52 98.1 99 18 150/79 97 Nasal Cannula 07/07/17 03:19 Nasal Cannula 3.0 32 07/07/17 03:19 Nasal Cannula 3.0 32 07/06/17 23:32 96 Nasal Cannula 3.0 07/06/17 23:32 98.2 92 20 149/76 96 Room Air 07/06/17 22:52 99 23 99 Nasal Cannula 3.0 32 07/06/17 22:45 93 20 98 Nasal Cannula 3.0 32 07/06/17 21:15 95 133/77 07/06/17 21:15 133/77 07/06/17 20:12 95 23 99 Nasal Cannula 3.0 32 07/06/17 20:05 98 Nasal Cannula 3.0 32 07/06/17 20:05 Nasal Cannula 3.0 32 07/06/17 20:02 88 20 98 Nasal Cannula 3.0 32 07/06/17 20:00 94 Nasal Cannula 4.0 07/06/17 19:22 98.1 91 19 133/77 94 Room Air 07/06/17 16:00 96.0 96 20 142/70 94 Nasal Cannula 3.0 07/06/17 14:40 90 23 99 Nasal Cannula 3.0 32 07/06/17 14:30 87 20 97 Nasal Cannula 22.0 07/06/17 13:53 151/74 07/06/17 12:00 94 07/06/17 12:00 98.0 87 20 151/74 93 Nasal Cannula 3.0 07/06/17 11:00 90 22 97 Nasal Cannula 3.0 32 07/06/17 10:45 91 21 95 Nasal Cannula 22.0 07/06/17 08:29 95 148/72 07/06/17 08:29 95 148/72 07/06/17 08:03 89 22 98 Nasal Cannula 3.0 32 07/06/17 08:00 99 07/06/17 08:00 98.2 95 20 148/72 99 Nasal Cannula 3.0 07/06/17 07:53 97 Nasal Cannula 3.0 32 07/06/17 07:53 Nasal Cannula 3.0 32 07/06/17 07:53 89 22 97 Nasal Cannula 3.0 Intake and Output 07/06/17 07/07/17 19:00 07:00 Intake Total 120 ml 1595 ml Output Total 500 ml 2500 ml Balance -380 ml -905 ml Free Water 120 ml IV Total 815 ml Tube Feeding 120 ml 660 ml Output Urine Total 500 ml 2500 ml # Bowel Movements 1 General Appearance: no acute distress, other - chronically ill looking nonverbal awake bedridden patient in NAD HEENT: normocephalic, atraumatic, anicteric, other - O2 via NC Respiratory/Chest: no respiratory distress, no accessory muscle use, decreased breath sounds Cardiovascular: normal rate, regular rhythm, no JVD Abdomen: soft, non tender, other - G tube Extremities: no edema Neurologic/Psychiatric: abnormal gait - bedridden , other - awake, nonverbal, quadriplegia Laboratory Tests 07/07/17 05:15: Troponin I [Pending] Current Medications Medications (Trade) Dose Ordered Sig/Willem Route PRN Reason Start Time Stop Time Status Last Admin Dose Admin Acetaminophen (Tylenol) 500 mg Q6H PRN ORAL MILD PAIN (1-4). NTE 3GM/DAY 07/06/17 19:01 07/30/17 19:00 Acetaminophen (Tylenol) 650 mg DAILY PRN ORAL Temp > 100.5 07/06/17 19:01 08/05/17 19:00 Acetaminophen (Tylenol) 650 mg Q6H PRN ORAL MODERATE PAIN (5-7) 07/06/17 19:01 07/30/17 19:00 Acetylcysteine (Mucomyst) 100 mg Q4HRT HHN 07/06/17 19:00 07/30/17 22:59 07/06/17 20:02 Amikacin Protocol (Amikacin pharmacy to dose) 1 ea DAILY PRN MISC Per rx protocol 07/07/17 09:00 08/02/17 12:29 Amlodipine Besylate (Norvasc) 10 mg DAILY GT 07/07/17 09:00 07/21/17 08:59 Aspirin (ASA) 81 mg DAILY ORAL 07/07/17 09:00 07/30/17 08:59 Bisacodyl (Dulcolax) 10 mg DAILYPRN PRN RECTAL constipationIF MOM INEFFECTIVE 07/06/17 21:00 07/26/17 20:59 Cefepime HCl 2 gm/ Dextrose 55 ml @ 110 mls/hr Q24H IVPB 07/07/17 06:00 07/09/17 05:59 07/07/17 05:47 Clonidine HCl (Catapres Tab) 0.1 mg Q4H PRN GT bp of 160 syst and above 07/06/17 19:14 07/21/17 19:13 Collagenase (Santyl) 1 applic DAILY TOPIC 07/07/17 09:00 07/29/17 08:59 Dextrose (Dextrose 50%) STAT PRN IV Hypoglycemia 07/06/17 21:00 07/26/17 20:59 Famotidine (Pepcid) 20 mg DAILY ORAL 07/07/17 09:00 07/22/17 08:59 Heparin Sodium (Porcine) (Heparin 5000 units/ml) 5,000 units EVERY 12 HOURS SUBQ 07/06/17 21:00 07/21/17 08:59 07/06/17 21:17 Hydralazine HCl (Apresoline) 25 mg Q8HR GT 07/06/17 22:00 07/21/17 17:59 07/07/17 05:47 Insulin Aspart (NovoLOG) EVERY 6 HOURS SUBQ 07/07/17 00:00 07/21/17 06:29 07/07/17 05:50 Insulin Detemir (Levemir) 15 units QHS SUBQ 07/06/17 21:00 08/03/17 20:59 07/06/17 21:58 Levothyroxine Sodium (Synthroid) 50 mcg ACBREAKFAST GT 07/07/17 06:30 07/21/17 06:29 07/07/17 05:47 Metoprolol Tartrate (Lopressor) 100 mg EVERY 12 HOURS GT 07/06/17 21:00 08/03/17 20:59 07/06/17 21:15 Nitroglycerin (Ntg) 0.4 mg Q5M PRN SL CHEST PAIN 07/06/17 18:45 07/21/17 20:59 Sodium Chloride 1,000 ml @ 75 mls/hr [id number] IV 07/06/17 19:00 08/03/17 18:59 07/06/17 20:23 Alfred SharpKandis pop NP Jul 07, 2017 07:18
[2017-07-07 08:00] VITALS: BP 141/98
[2017-07-07] MEDS ORDERED: Amikacin Rx to dose MISC PRN (09:00)
[2017-07-07] MEDS: Aspirin Baby 81mg ORAL SCH (09:27)
[2017-07-07] MEDS: Heparin 5000 units/ml inj SUBQ SCH ×2 (09:28→20:13)
[2017-07-07] MEDS: Albuterol/Ipratropium 3ml neb HHN SCH ×4 (10:48→23:38)
--- NOTE | 2017-07-07 11:02 | Infectious Diseases Prog Note ---
Assessment/Plan Assessment/Plan Fever-low grade, SP ( improved after adding Amikacin ) PSA Pneumonia Sepsis 2ry to HCAP, improving CXR 06/26: Probable mild CHF. Please correlate clinically -CXR 06/22: Lungs and pleural spaces are clear -CXR: There is infiltrate in the left infrahilar region. There is some atelectasis at the right lung base. There is also retrocardiac consolidation -sp cx: +3 MDR PSA (S. Cefepime, Gentamicin/Amikacin) -u./a WBC 5-10, nit neg, leuk est +1, ucx 10-20K C. albicans (colonzier) -rectal wound cx: ESBL E.coli, PsA (colonizers)- no signs of infection 07/22 CoNS bacteremia- suspect contaminant 06/20 +07/22, 06/21 Neg x4 leukocytosis-resolved Lactic acidosis- resolved Cdiff neg 06/25 -Neg: HIV ag/ab, RPR, CrAg serum, FTA-ab Acute hypoxic resp failure s/p intubation 06/20- s/p extubation 06/25 BOOGIE, improving Recent gastritis (dx by EGD) Hx of encephalopathy -05/22 CT head: No evidence of acute intracranial hemorrhage, mass effect or cortical edema. MRI may be obtained for more sensitive evaluation as clinically indicated. Stable chronic infarct in the right frontal lobe. Cerebral and cerebellar atrophy greater than expected for age. Clinical correlation recommended. Mild periventricular hypoattenuation suggestive of chronic ischemic microvascular changes. -previous admission:nical correlation recommended. Mild periventricular hypoattenuation suggestive of chronic ischemic microvascular changes. Small area of right frontal encephalomalacia suggestive of old infarct. -UDS neg -TSH normal -Brain MRI: Chronic and age-related changes. Old right frontal infarct. Negative for acute intracranial bleed, mass effect, or acute infarct hx of VRE and MRSA colonization HTN CKD DM2 bipolar dz/schizophrenia GERD cardiac arrhythmia Dementia CAD with prior CA MS osteoporosis asthma VIt D def Hypothyroidism HLD dysphagia s/p GT R MCA CVA with left hemiplegia s/p trach Plan: -Continue Cefepime d# 15 /17 , and Amikacin d# 5 / 7 ( w monitor of Cr ) -06/25 SP IV vancomycin #5, Amikacin #5 -1/6 SP Meropenem #3 -4 SP Amikacin x1 -Monitor CBC/BMP, temperatures -aspiration precautions - wound care Subjective Allergies: Coded Allergies: No Known Allergies (Unverified , 05/11/17) Subjective afebrile no leukocytosis on 2L NC Objective Vital Signs Last 24 Hour Vital Signs Date Time Temp Pulse Resp B/P (MAP) Pulse Ox O2 Delivery O2 Flow Rate FiO2 07/07/17 10:48 101 20 98 Nasal Cannula 3.0 32 07/07/17 09:27 103 141/98 07/07/17 09:26 103 141/98 07/07/17 08:00 98.1 103 22 141/98 97 07/07/17 07:39 Nasal Cannula 3.0 32 07/07/17 07:39 Nasal Cannula 3.0 32 07/07/17 07:39 Nasal Cannula 3.0 32 07/07/17 07:39 100 Nasal Cannula 3.0 32 07/07/17 05:47 150/79 07/07/17 04:00 97 Nasal Cannula 3.0 07/07/17 03:52 98.1 99 18 150/79 97 Nasal Cannula 07/07/17 03:19 Nasal Cannula 3.0 32 07/07/17 03:19 Nasal Cannula 3.0 32 07/06/17 23:32 96 Nasal Cannula 3.0 07/06/17 23:32 98.2 92 20 149/76 96 Room Air 07/06/17 22:52 99 23 99 Nasal Cannula 3.0 32 07/06/17 22:45 93 20 98 Nasal Cannula 3.0 32 07/06/17 21:15 95 133/77 07/06/17 21:15 133/77 07/06/17 20:12 95 23 99 Nasal Cannula 3.0 32 07/06/17 20:05 98 Nasal Cannula 3.0 32 07/06/17 20:05 Nasal Cannula 3.0 32 07/06/17 20:02 88 20 98 Nasal Cannula 3.0 32 07/06/17 20:00 94 Nasal Cannula 4.0 07/06/17 19:22 98.1 91 19 133/77 94 Room Air 07/06/17 16:00 96.0 96 20 142/70 94 Nasal Cannula 3.0 07/06/17 14:40 90 23 99 Nasal Cannula 3.0 32 07/06/17 14:30 87 20 97 Nasal Cannula 22.0 07/06/17 13:53 151/74 07/06/17 12:00 94 07/06/17 12:00 98.0 87 20 151/74 93 Nasal Cannula 3.0 Height (Feet): 5 Height (Inches): 9.00 Weight (Pounds): 185 Objective HEENT: atraumatic Lungs: clear Heart: HR/BP stable Abdomen: non-tender, active bowel sounds Extremities: no C/C/E Decubiti: location Laboratory Tests Test 07/07/17 05:15 Troponin I 0.040 ng/mL (0.000-0.056) Current Medications Medications (Trade) Dose Ordered Sig/Willem Route PRN Reason Start Time Stop Time Status Last Admin Dose Admin Acetaminophen (Tylenol) 500 mg Q6H PRN ORAL MILD PAIN (1-4). NTE 3GM/DAY 07/06/17 19:01 07/30/17 19:00 Acetaminophen (Tylenol) 650 mg DAILY PRN ORAL Temp > 100.5 07/06/17 19:01 08/05/17 19:00 Acetaminophen (Tylenol) 650 mg Q6H PRN ORAL MODERATE PAIN (5-7) 07/06/17 19:01 07/30/17 19:00 Acetylcysteine (Mucomyst) 100 mg Q4HRT N 07/06/17 19:00 07/30/17 22:59 07/07/17 10:48 Albuterol/ Ipratropium (Albuterol/ Ipratropium) 3 ml Q4HRT N 07/07/17 11:00 07/12/17 10:59 07/07/17 10:48 Amikacin Protocol (Amikacin pharmacy to dose) 1 ea DAILY PRN MISC Per rx protocol 07/07/17 09:00 08/02/17 12:29 Amlodipine Besylate (Norvasc) 10 mg DAILY GT 07/07/17 09:00 07/21/17 08:59 07/07/17 09:26 Aspirin (ASA) 81 mg DAILY ORAL 07/07/17 09:00 07/30/17 08:59 07/07/17 09:27 Bisacodyl (Dulcolax) 10 mg DAILYPRN PRN RECTAL constipationIF MOM INEFFECTIVE 07/06/17 21:00 07/26/17 20:59 Cefepime HCl 2 gm/ Dextrose 55 ml @ 110 mls/hr Q24H IVPB 07/07/17 06:00 07/09/17 05:59 07/07/17 05:47 Clonidine HCl (Catapres Tab) 0.1 mg Q4H PRN GT bp of 160 syst and above 07/06/17 19:14 2 19:13 Collagenase (Santyl) 1 applic DAILY TOPIC 07/07/17 09:00 07/29/17 08:59 Dextrose (Dextrose 50%) STAT PRN IV Hypoglycemia 07/06/17 21:00 07/26/17 20:59 Famotidine (Pepcid) 20 mg DAILY ORAL 07/07/17 09:00 07/22/17 08:59 07/07/17 09:26 Heparin Sodium (Porcine) (Heparin 5000 units/ml) 5,000 units EVERY 12 HOURS SUBQ 07/06/17 21:00 07/21/17 08:59 07/07/17 09:28 Hydralazine HCl (Apresoline) 25 mg Q8HR GT 07/06/17 22:00 07/21/17 17:59 07/07/17 05:47 Insulin Aspart (NovoLOG) EVERY 6 HOURS SUBQ 07/07/17 00:00 07/21/17 06:29 07/07/17 05:50 Insulin Detemir (Levemir) 15 units QHS SUBQ 07/06/17 21:00 08/03/17 20:59 07/06/17 21:58 Levothyroxine Sodium (Synthroid) 50 mcg ACBREAKFAST GT 07/07/17 06:30 07/21/17 06:29 07/07/17 05:47 Metoprolol Tartrate (Lopressor) 100 mg EVERY 12 HOURS GT 07/06/17 21:00 08/03/17 20:59 07/07/17 09:27 Nitroglycerin (Ntg) 0.4 mg Q5M PRN SL CHEST PAIN 07/06/17 18:45 07/21/17 20:59 Sodium Chloride 1,000 ml @ 75 mls/hr [id number] IV 07/06/17 19:00 08/03/17 18:59 07/06/17 20:23 Hellen Hutchison M.D. Jul 07, 2017 11:02
[2017-07-07 12:00] VITALS: BP 133/79
--- NOTE | 2017-07-07 13:04 | Nephrology Progress Note ---
Assessment/Plan Problem List: (1) Acute renal failure (2) Respiratory failure requiring intubation (3) Urosepsis (4) Anemia Assessment: worsening (5) Hypoalbuminemia Assessment BOOGIE (acute kidney injury), Cr 1.6 today , lower H&H lower Respiratory failure requiring intubation Respiratory failure with hypoxia Aspiration pneumonia, Urosepsis Anemia ACS (acute coronary syndrome), Non St Elevation [place] CHF (congestive heart failure) Acute encephalopathy GT feeding LLL atelectesis worsening, Plan plan resp support will need tracheostomy to prevent worsening atelectaisis transfused avoid Nephrotoxics monitor renal parameters Keep BP and BS in check Optimize pulmonary and cardiac support Subjective ROS Limited/Unobtainable: No Constitutional: Reports: malaise, weakness Objective Objective Last 24 Hour Vital Signs Date Time Temp Pulse Resp B/P (MAP) Pulse Ox O2 Delivery O2 Flow Rate FiO2 07/07/17 10:58 100 22 99 Nasal Cannula 3.0 32 07/07/17 10:48 101 20 98 Nasal Cannula 3.0 32 07/07/17 09:27 103 141/98 07/07/17 09:26 103 141/98 07/07/17 08:00 98.1 103 22 141/98 97 07/07/17 07:39 Nasal Cannula 3.0 32 07/07/17 07:39 Nasal Cannula 3.0 32 07/07/17 07:39 Nasal Cannula 3.0 32 07/07/17 07:39 100 Nasal Cannula 3.0 32 07/07/17 05:47 150/79 07/07/17 04:00 97 Nasal Cannula 3.0 07/07/17 03:52 98.1 99 18 150/79 97 Nasal Cannula 07/07/17 03:19 Nasal Cannula 3.0 32 07/07/17 03:19 Nasal Cannula 3.0 32 07/06/17 23:32 96 Nasal Cannula 3.0 07/06/17 23:32 98.2 92 20 149/76 96 Room Air 07/06/17 22:52 99 23 99 Nasal Cannula 3.0 32 07/06/17 22:45 93 20 98 Nasal Cannula 3.0 32 07/06/17 21:15 95 133/77 07/06/17 21:15 133/77 07/06/17 20:12 95 23 99 Nasal Cannula 3.0 32 1/19/18 20:05 98 Nasal Cannula 3.0 32 07/06/17 20:05 Nasal Cannula 3.0 32 07/06/17 20:02 88 20 98 Nasal Cannula 3.0 32 07/06/17 20:00 94 Nasal Cannula 4.0 07/06/17 19:22 98.1 91 19 133/77 94 Room Air 07/06/17 16:00 96.0 96 20 142/70 94 Nasal Cannula 3.0 07/06/17 14:40 90 23 99 Nasal Cannula 3.0 32 07/06/17 14:30 87 20 97 Nasal Cannula 22.0 07/06/17 13:53 151/74 Intake and Output 07/06/17 07/07/17 19:00 07:00 Intake Total 120 ml 1595 ml Output Total 500 ml 2500 ml Balance -380 ml -905 ml Free Water 120 ml IV Total 815 ml Tube Feeding 120 ml 660 ml Output Urine Total 500 ml 2500 ml # Bowel Movements 1 Laboratory Tests 07/07/17 05:15: Troponin I 0.040 Height (Feet): 5 Height (Inches): 9.00 Weight (Pounds): 185 General Appearance: no apparent distress Respiratory/Chest: decreased breath sounds Abdomen: distended Objective no other changes GARCÍA READ Jul 07, 2017 13:04
[2017-07-07 16:00] VITALS: BP 135/75
[2017-07-07 20:00] VITALS: BP 159/77
[2017-07-07] MEDS: Levemir Flexpen SUBQ SCH (20:13)
--- NOTE | 2017-07-07 21:00 | Progress Note ---
DATE: 07/07/2017 SUBJECTIVE: The patient was transferred out from the [facility] to Med/Surg because of his stable condition. OBJECTIVE: VITAL SIGNS: Blood pressure is 133/79, his pulse is 85, respirations are 20, and temperature 98.1 degrees. HEENT: Eyes were normal. ENT, mucous membranes were moist and intact. NECK: Supple with no JVD without lymph nodes. LUNGS: Clear. There are few rhonchi in left lower lobe laterally only. HEART: Normal sounds with regular heart beats. ABDOMEN: Soft and nontender with normal bowel sounds. EXTREMITIES: Warm without cyanosis, clubbing, or edema. LABORATORY AND DIAGNOSTIC DATA: His hemoglobin is 10.9, hematocrit 34.6 with MCV of 93, WBC of 6.9, and platelets 402,000. His BUN and creatinine is 37 and 1.6 respectively. His sodium is 145, potassium 4.7, chloride 109, and CO2 is 27. His troponin is 0.04. Calcium is 8.5, phosphorus is 3.3, and magnesium is 2.0. Chest x-ray showed persistent interstitial opacification, but no collapse of the left lower lobe as it was previously. IMPRESSION: The patient maintained the patency of his left main bronchus. He is afebrile, hemodynamically stable. Repeat laboratory tests will be done in the morning. Martina Morales M.D. DR: Garrett JOB#: [id number] CC:
--- NOTE | 2017-07-07 22:41 | General Progress Note ---
Assessment/Plan Status: unchanged Assessment/Plan #. Anemia secondary to chronic disease. Anemia workup reviewed. --> Hemoglobin goal >7 --> Trend cbc daily. No transfusion needed today. #. Coagulopathy, malnutrition and vitamin K deficiency. --> Closely monitor. On anticoagulation as needed. --> administer vitamin K as needed. --> Goal INR between 2 and 3 #. Leukocytosis, likely secondary to underlying infection, sepsis, and antibiotics. --> has resolved, wbc count wnl --> Remains on antibiotics. #. Acute hypoxemia, requiring intubation. --> Currently extubated #. Acute kidney injury. #. Dysphagia with gastrostomy tube. #. Cerebrovascular accident with right-sided hemiplegia. #. Acute toxic metabolic encephalopathy. #. Hypothyroidism. Subjective Date patient seen: Jul 07, 2017 Constitutional: Denies: no symptoms, chills, diaphoresis, fever, malaise, weakness, other HEENT: Denies: no symptoms, eye pain, blurred vision, tearing, double vision, ear pain, ear discharge, nose pain, nose congestion, throat pain, throat swelling, mouth pain, mouth swelling, other Cardiovascular: Denies: no symptoms, chest pain, edema, irregular heart rate, lightheadedness, palpitations, syncope, other Respiratory: Denies: no symptoms, cough, orthopnea, shortness of breath, SOB with excertion, SOB at rest, sputum, stridor, wheezing, other Gastrointestinal/Abdominal: Denies: no symptoms, abdomen distended, abdominal pain, black stools, tarry stools, blood in stool, constipated, diarrhea, difficulty swallowing, nausea, poor appetite, poor fluid intake, rectal bleeding , vomiting, other Hematologic/Lymphatic: Reports: anemia Allergies: Coded Allergies: No Known Allergies (Unverified , 05/11/17) Subjective No new events overnight. Not in acute distress. Objective Last 24 Hour Vital Signs Date Time Temp Pulse Resp B/P (MAP) Pulse Ox O2 Delivery O2 Flow Rate FiO2 07/07/17 21:22 139/75 07/07/17 20:11 96 159/77 07/07/17 20:00 98.2 96 19 159/77 95 07/07/17 19:50 106 16 99 Nasal Cannula 3.0 32 07/07/17 19:34 96 Nasal Cannula 3.0 32 07/07/17 19:34 Nasal Cannula 3.0 32 07/07/17 19:34 32 07/07/17 19:34 99 16 96 Nasal Cannula 3.0 32 07/07/17 16:26 90 18 98 Nasal Cannula 3.0 32 07/07/17 16:00 98.2 89 20 135/75 100 07/07/17 13:11 133/79 07/07/17 12:00 98.1 85 20 133/79 95 07/07/17 10:58 100 22 99 Nasal Cannula 3.0 32 07/07/17 10:48 101 20 98 Nasal Cannula 3.0 32 07/07/17 09:27 103 141/98 07/07/17 09:26 103 141/98 07/07/17 08:00 98.1 103 22 141/98 97 07/07/17 07:39 Nasal Cannula 3.0 32 07/07/17 07:39 Nasal Cannula 3.0 32 07/07/17 07:39 Nasal Cannula 3.0 32 07/07/17 07:39 100 Nasal Cannula 3.0 32 07/07/17 05:47 150/79 07/07/17 04:00 97 Nasal Cannula 3.0 07/07/17 03:52 98.1 99 18 150/79 97 Nasal Cannula 07/07/17 03:19 Nasal Cannula 3.0 32 07/07/17 03:19 Nasal Cannula 3.0 32 07/06/17 23:32 96 Nasal Cannula 3.0 07/06/17 23:32 98.2 92 20 149/76 96 Room Air 07/06/17 22:52 99 23 99 Nasal Cannula 3.0 32 07/06/17 22:45 93 20 98 Nasal Cannula 3.0 32 Intake and Output 07/06/17 07/07/17 19:00 07:00 Intake Total 120 ml 1655 ml Output Total 500 ml 2500 ml Balance -380 ml -845 ml Free Water 120 ml IV Total 815 ml Tube Feeding 120 ml 720 ml Output Urine Total 500 ml 2500 ml # Bowel Movements 1 Laboratory Tests 07/07/17 05:15: Troponin I 0.040 07/07/17 20:20: Random Amikacin Level [Pending] Height (Feet): 5 Height (Inches): 9.00 Weight (Pounds): 185 General Appearance: no apparent distress Respiratory/Chest: decreased breath sounds Abdomen: soft Dejan Copeland Jul 07, 2017 22:41
[2017-07-08] VITALS: BP 132/74
[2017-07-08] MEDS: Albuterol/Ipratropium 3ml neb HHN SCH ×6 (03:20→23:19)
[2017-07-08 04:00] VITALS: BP 145/79
[2017-07-08] MEDS: Cefepime HCl 2 GM in D5W 110 ML IVPB SCH (05:44)
[2017-07-08] MEDS: HydrALAZINE 25mg tab GT SCH ×3 (05:44→21:26)
[2017-07-08] MEDS: NovoLOG Insulin Flexpen SUBQ SCH ×3 (05:45→18:00)
[2017-07-08 07:13] LABS: ANION GAP 6 mmol/L (5-15); BLOOD UREA NITROGEN 38 mg/dL (7-18); CALCIUM 8.6 MG/DL (8.5-10.1); CARBON DIOXIDE 31 MMOL/L (21-32); CHLORIDE 107 MMOL/L (98-107); CREATININE 1.6 MG/DL (0.55-1.30); POTASSIUM 4.4 MMOL/L (3.5-5.1); SODIUM 144 MMOL/L (136-145)
[2017-07-08 07:14] LABS: BASOPHILS % (AUTO) 0.6 % (0.0-2.0); EOSINOPHILS % (AUTO) 2.2 % (0.0-3.0); HEMATOCRIT 29.4 % (42.0-52.0); HEMOGLOBIN 9.3 G/DL (14.2-18.0); LYMPHOCYTES % (AUTO) 13.2 % (20.0-45.0); MEAN CORPUSCULAR VOLUME 92 FL (80-99); MONOCYTES % (AUTO) 4.5 % (1.0-10.0); NEUTROPHILS % (AUTO) 79.6 % (45.0-75.0); PLATELET COUNT 512 K/UL (150-450); RED BLOOD COUNT 3.21 M/UL (4.70-6.10); RED CELL DISTRIBUTION WIDTH 15.7 % (11.6-14.8); WHITE BLOOD COUNT 6.5 K/UL (4.8-10.8)
[2017-07-08 08:00] VITALS: BP 154/74
[2017-07-08] MEDS: Aspirin Baby 81mg ORAL SCH (09:10)
[2017-07-08] MEDS: Heparin 5000 units/ml inj SUBQ SCH ×2 (09:12→20:20)
--- NOTE | 2017-07-08 09:43 | Pulmonology Progress Note ---
Assessment/Plan Assessment/Plan ASSESSMENT Sepsis acute RF requiring intubation s/p extubation 06/25 LLL atelectasis Acute renal failure-resolving Dysphagia, G tube s/p multiple lacunar strokes with quadriplegia, expressive aphasia and dementia HTN Hyperlipidemia DM anemia requiring blood transfusion PLAN OF CARE [facility] status CXR wilfrid,R LLL atelectasis resolved Off BiPAP, O2 titrate, pulm toilet, Mucomyst Abx, ID follows Sputum + Pseudomonas, bl cx + SCON, repeated negative, C dif negative, urine cx + chinedu Per discussion with MD keep till Sunday if CXR with still open lung will dc, otherwise will need trach BP management with Hydralazine and BB BS management with levemir and SS of insulin Neuro eval appreciated, no additional, neuro diagnostic studies necessary, recommended supportive care Nephro follows, creat trending down IVF, monitor lytes, correct as needed, monitor renal parameters avoid nephrotoxic monitor HH, transfuse prn per discussion with PMD keep till Sunday fup with CXR on Sunday if R lung remains open, will dc if not- will need trach case discussed and evaluated by supervising physician Subjective Allergies: Coded Allergies: No Known Allergies (Unverified , 05/11/17) Subjective on MS floor on O2 via NC, sat stable CXR better Objective Last 24 Hour Vital Signs Date Time Temp Pulse Resp B/P (MAP) Pulse Ox O2 Delivery O2 Flow Rate FiO2 07/08/17 09:10 105 154/74 07/08/17 09:10 105 154/74 07/08/17 08:00 98.2 105 19 154/74 98 Nasal Cannula 3.0 07/08/17 07:33 28 07/08/17 07:33 99 20 97 Nasal Cannula 2.0 28 07/08/17 07:26 97 Nasal Cannula 3.0 32 07/08/17 07:26 Nasal Cannula 2.0 28 07/08/17 07:23 99 20 97 Nasal Cannula 2.0 28 07/08/17 05:44 145/79 07/08/17 04:27 22 94 Nasal Cannula 3.0 07/08/17 04:00 98.8 100 21 145/79 91 07/08/17 03:33 98 20 99 Nasal Cannula 2.0 28 07/08/17 03:20 28 07/08/17 03:20 97 20 97 Nasal Cannula 2.0 28 07/08/17 00:00 Nasal Cannula 3.0 07/08/17 00:00 98.0 83 20 132/74 94 07/07/17 23:56 90 18 99 Nasal Cannula 2.0 28 07/07/17 23:39 100 18 98 Nasal Cannula 2.0 28 07/07/17 21:22 139/75 07/07/17 20:11 96 159/77 07/07/17 20:00 98.2 96 19 159/77 95 07/07/17 20:00 Nasal Cannula 3.0 07/07/17 19:50 106 16 99 Nasal Cannula 3.0 32 07/07/17 19:34 96 Nasal Cannula 3.0 32 07/07/17 19:34 Nasal Cannula 3.0 32 07/07/17 19:34 32 07/07/17 19:34 99 16 96 Nasal Cannula 3.0 32 07/07/17 16:26 90 18 98 Nasal Cannula 3.0 32 07/07/17 16:00 98.2 89 20 135/75 100 07/07/17 13:11 133/79 07/07/17 12:00 98.1 85 20 133/79 95 07/07/17 10:58 100 22 99 Nasal Cannula 3.0 32 07/07/17 10:48 101 20 98 Nasal Cannula 3.0 32 Intake and Output 07/07/17 07/08/17 19:00 07:00 Intake Total 1540 ml 1690 ml Output Total 550 ml 1100 ml Balance 990 ml 590 ml Free Water 130 ml 200 ml IV Total 750 ml 830 ml Tube Feeding 660 ml 660 ml Output Urine Total 550 ml 1100 ml # Bowel Movements 3 Objective General Appearance: no acute distress, chronically ill looking nonverbal awake bedridden patient in NAD HEENT: normocephalic, atraumatic, anicteric, other - O2 via NC Respiratory/Chest: no respiratory distress, no accessory muscle use, decreased breath sounds Cardiovascular: normal rate, regular rhythm, no JVD Abdomen: soft, non tender, G tube with TF Extremities: no edema Neurologic/Psychiatric: bedridden , awake, nonverbal, quadriplegia Laboratory Tests 07/07/17 20:20: Random Amikacin Level [Pending] 07/08/17 05:00: White Blood Count 6.5, Red Blood Count 3.21L, Hemoglobin 9.3L, Hematocrit 29.4L , Mean Corpuscular Volume 92, Mean Corpuscular Hemoglobin 29.1, Mean Corpuscular Hemoglobin Concent 31.7L, Red Cell Distribution Width 15.7H, Platelet Count 512H, Mean Platelet Volume 6.2L, Neutrophils (%) (Auto) 79.6H, Lymphocytes (%) (Auto) 13.2L, Monocytes (%) (Auto) 4.5, Eosinophils (%) (Auto) 2.2, Basophils (%) (Auto) 0.6, Sodium Level 144, Potassium Level 4.4, Chloride Level 107, Carbon Dioxide Level 31, Anion Gap 6, Blood Urea Nitrogen 38H, Creatinine 1.6H, Estimat Glomerular Filtration Rate 43.7, Glucose Level 271H, Calcium Level 8.6 Current Medications Medications (Trade) Dose Ordered Sig/Willem Route PRN Reason Start Time Stop Time Status Last Admin Dose Admin Acetaminophen (Tylenol) 500 mg Q6H PRN ORAL MILD PAIN (1-4). NTE 3GM/DAY 07/06/17 19:01 07/30/17 19:00 Acetaminophen (Tylenol) 650 mg DAILY PRN ORAL Temp > 100.5 07/06/17 19:01 08/05/17 19:00 Acetaminophen (Tylenol) 650 mg Q6H PRN ORAL MODERATE PAIN (5-7) 07/06/17 19:01 07/30/17 19:00 Acetylcysteine (Mucomyst) 100 mg Q4HRT [facility] 07/06/17 19:00 07/30/17 22:59 07/08/17 07:23 Albuterol/ Ipratropium (Albuterol/ Ipratropium) 3 ml Q4HRT [facility] 07/07/17 11:00 07/12/17 10:59 07/08/17 07:23 Amikacin Protocol (Amikacin pharmacy to dose) 1 ea DAILY PRN MISC Per rx protocol 07/07/17 09:00 08/02/17 12:29 Amlodipine Besylate (Norvasc) 10 mg DAILY GT 07/07/17 09:00 07/21/17 08:59 07/08/17 09:10 Aspirin (ASA) 81 mg DAILY ORAL 07/07/17 09:00 07/30/17 08:59 07/08/17 09:10 Bisacodyl (Dulcolax) 10 mg DAILYPRN PRN RECTAL constipationIF MOM INEFFECTIVE 07/06/17 21:00 07/26/17 20:59 Cefepime HCl 2 gm/ Dextrose 110 ml @ 220 mls/hr Q24H IVPB 07/08/17 06:00 07/15/17 05:59 07/08/17 05:44 Clonidine HCl (Catapres Tab) 0.1 mg Q4H PRN GT bp of 160 syst and above 07/06/17 19:14 07/21/17 19:13 Collagenase (Santyl) 1 applic DAILY TOPIC 07/07/17 09:00 07/29/17 08:59 07/08/17 09:10 Dextrose (Dextrose 50%) STAT PRN IV Hypoglycemia 07/06/17 21:00 07/26/17 20:59 Famotidine (Pepcid) 20 mg DAILY ORAL 07/07/17 09:00 07/22/17 08:59 07/08/17 09:10 Heparin Sodium (Porcine) (Heparin 5000 units/ml) 5,000 units EVERY 12 HOURS SUBQ 07/06/17 21:00 07/21/17 08:59 07/08/17 09:12 Hydralazine HCl (Apresoline) 25 mg Q8HR GT 07/06/17 22:00 07/21/17 17:59 07/08/17 05:44 Insulin Aspart (NovoLOG) EVERY 6 HOURS SUBQ 07/07/17 00:00 07/21/17 06:29 07/08/17 05:45 Insulin Detemir (Levemir) 15 units QHS SUBQ 07/06/17 21:00 08/03/17 20:59 07/07/17 20:13 Levothyroxine Sodium (Synthroid) 50 mcg ACBREAKFAST GT 07/07/17 06:30 07/21/17 06:29 07/08/17 05:44 Metoprolol Tartrate (Lopressor) 100 mg EVERY 12 HOURS GT 07/06/17 21:00 08/03/17 20:59 07/08/17 09:10 Nitroglycerin (Ntg) 0.4 mg Q5M PRN SL CHEST PAIN 07/06/17 18:45 07/21/17 20:59 Sodium Chloride 1,000 ml @ 75 mls/hr [id number] IV 07/06/17 19:00 08/03/17 18:59 07/07/17 21:22 Alfred ([facility])Kandis NP Jul 08, 2017 09:43
--- NOTE | 2017-07-08 09:52 | Diagnostic Imaging Report ---
Indication: Chest pain Technique: XRAY Chest 1v. Comparison: 07/06/2017 Findings: The cardiomediastinal silhouette is unchanged. No new infiltrates are identified. Impression: No significant change from prior examination.
[2017-07-08 12:00] VITALS: BP 137/69
--- NOTE | 2017-07-08 12:14 | Nephrology Progress Note ---
Assessment/Plan Problem List: (1) Acute renal failure (2) Respiratory failure requiring intubation (3) Urosepsis (4) Anemia Assessment: worsening (5) Hypoalbuminemia Assessment BOOGIE (acute kidney injury), Cr 1.6 today , lower H&H lower Respiratory failure requiring intubation Respiratory failure with hypoxia Aspiration pneumonia, Urosepsis Anemia ACS (acute coronary syndrome), Non St Elevation [place] CHF (congestive heart failure) Acute encephalopathy GT feeding LLL atelectesis worsening, Plan plan resp support will need tracheostomy to prevent worsening atelectaisis transfused avoid Nephrotoxics monitor renal parameters Keep BP and BS in check Optimize pulmonary and cardiac support Subjective ROS Limited/Unobtainable: No Constitutional: Reports: malaise Objective Objective Last 24 Hour Vital Signs Date Time Temp Pulse Resp B/P (MAP) Pulse Ox O2 Delivery O2 Flow Rate FiO2 07/08/17 10:55 97 20 96 Nasal Cannula 2.0 28 07/08/17 10:55 28 07/08/17 10:45 97 20 96 Nasal Cannula 2.0 28 07/08/17 09:10 105 154/74 07/08/17 09:10 105 154/74 07/08/17 08:00 98.2 105 19 154/74 98 Nasal Cannula 3.0 07/08/17 07:33 28 07/08/17 07:33 99 20 97 Nasal Cannula 2.0 28 07/08/17 07:26 97 Nasal Cannula 3.0 32 07/08/17 07:26 Nasal Cannula 2.0 28 07/08/17 07:23 99 20 97 Nasal Cannula 2.0 28 07/08/17 05:44 145/79 07/08/17 04:27 22 94 Nasal Cannula 3.0 07/08/17 04:00 98.8 100 21 145/79 91 07/08/17 03:33 98 20 99 Nasal Cannula 2.0 28 07/08/17 03:20 28 07/08/17 03:20 97 20 97 Nasal Cannula 2.0 28 07/08/17 00:00 Nasal Cannula 3.0 07/08/17 00:00 98.0 83 20 132/74 94 07/07/17 23:56 90 18 99 Nasal Cannula 2.0 28 07/07/17 23:39 100 18 98 Nasal Cannula 2.0 28 07/07/17 21:22 139/75 07/07/17 20:11 96 159/77 07/07/17 20:00 98.2 96 19 159/77 95 07/07/17 20:00 Nasal Cannula 3.0 07/07/17 19:50 106 16 99 Nasal Cannula 3.0 32 07/07/17 19:34 96 Nasal Cannula 3.0 32 07/07/17 19:34 Nasal Cannula 3.0 32 07/07/17 19:34 32 07/07/17 19:34 99 16 96 Nasal Cannula 3.0 32 07/07/17 16:26 90 18 98 Nasal Cannula 3.0 32 07/07/17 16:00 98.2 89 20 135/75 100 07/07/17 13:11 133/79 Intake and Output 07/07/17 07/08/17 19:00 07:00 Intake Total 1540 ml 1690 ml Output Total 550 ml 1100 ml Balance 990 ml 590 ml Free Water 130 ml 200 ml IV Total 750 ml 830 ml Tube Feeding 660 ml 660 ml Output Urine Total 550 ml 1100 ml # Bowel Movements 3 Laboratory Tests 07/07/17 20:20: Random Amikacin Level < 2.0 07/08/17 05:00: White Blood Count 6.5, Red Blood Count 3.21L, Hemoglobin 9.3L, Hematocrit 29.4L , Mean Corpuscular Volume 92, Mean Corpuscular Hemoglobin 29.1, Mean Corpuscular Hemoglobin Concent 31.7L, Red Cell Distribution Width 15.7H, Platelet Count 512H, Mean Platelet Volume 6.2L, Neutrophils (%) (Auto) 79.6H, Lymphocytes (%) (Auto) 13.2L, Monocytes (%) (Auto) 4.5, Eosinophils (%) (Auto) 2.2, Basophils (%) (Auto) 0.6, Sodium Level 144, Potassium Level 4.4, Chloride Level 107, Carbon Dioxide Level 31, Anion Gap 6, Blood Urea Nitrogen 38H, Creatinine 1.6H, Estimat Glomerular Filtration Rate 43.7, Glucose Level 271H, Calcium Level 8.6 Height (Feet): 5 Height (Inches): 9.00 Weight (Pounds): 190 General Appearance: no apparent distress, lethargic Respiratory/Chest: decreased breath sounds Abdomen: soft Objective no other changes GARCÍA READ Jul 08, 2017 12:14
[2017-07-08] MEDS ORDERED: Amikacin 750 MG in NS 110 ML IV ONE (13:00)
[2017-07-08 16:00] VITALS: BP 142/78
[2017-07-08 20:00] VITALS: BP 139/73
[2017-07-08] MEDS: Levemir Flexpen SUBQ SCH (20:19)
[2017-07-08] MEDS: Acetylcysteine 20% Soln 4ml HHN SCH ×2 (21:08→23:19)
--- NOTE | 2017-07-08 23:41 | General Progress Note ---
Assessment/Plan Status: unchanged Assessment/Plan #. Anemia secondary to chronic disease. Anemia workup reviewed. --> Hemoglobin goal >7 --> Trend cbc daily. No transfusion needed today. #. Coagulopathy, malnutrition and vitamin K deficiency. --> Closely monitor. On anticoagulation as needed. --> administer vitamin K as needed. --> Goal INR between 2 and 3 #. Leukocytosis, likely secondary to underlying infection, sepsis, and antibiotics. --> has resolved, wbc count wnl --> Remains on antibiotics. #. Acute hypoxemia, requiring intubation. --> Currently extubated #. Acute kidney injury. #. Dysphagia with gastrostomy tube. #. Cerebrovascular accident with right-sided hemiplegia. #. Acute toxic metabolic encephalopathy. #. Hypothyroidism. Subjective Date patient seen: Jul 08, 2017 Constitutional: Denies: no symptoms, chills, diaphoresis, fever, malaise, weakness, other HEENT: Denies: no symptoms, eye pain, blurred vision, tearing, double vision, ear pain, ear discharge, nose pain, nose congestion, throat pain, throat swelling, mouth pain, mouth swelling, other Cardiovascular: Denies: no symptoms, chest pain, edema, irregular heart rate, lightheadedness, palpitations, syncope, other Respiratory: Denies: no symptoms, cough, orthopnea, shortness of breath, SOB with excertion, SOB at rest, sputum, stridor, wheezing, other Gastrointestinal/Abdominal: Denies: no symptoms, abdomen distended, abdominal pain, black stools, tarry stools, blood in stool, constipated, diarrhea, difficulty swallowing, nausea, poor appetite, poor fluid intake, rectal bleeding , vomiting, other Genitourinary: Denies: no symptoms, burning, discharge, frequency, flank pain, hematuria, incontinence, pain, urgency, other Allergies: Coded Allergies: No Known Allergies (Unverified , 05/11/17) Subjective Worsening. No fever. Platelet remains high. Objective Last 24 Hour Vital Signs Date Time Temp Pulse Resp B/P (MAP) Pulse Ox O2 Delivery O2 Flow Rate FiO2 07/08/17 23:18 94 21 96 Nasal Cannula 2.0 28 07/08/17 23:18 28 07/08/17 21:26 141/75 07/08/17 21:20 100 21 95 Nasal Cannula 2.0 28 07/08/17 21:06 100 21 95 Nasal Cannula 2.0 28 07/08/17 21:06 28 07/08/17 21:05 Nasal Cannula 2.0 28 07/08/17 21:04 95 Nasal Cannula 2.0 28 07/08/17 20:18 100 139/73 07/08/17 20:00 98.4 100 21 139/73 95 Nasal Cannula 3.0 07/08/17 16:00 98.1 98 19 142/78 98 Nasal Cannula 3.0 07/08/17 14:45 89 20 98 Nasal Cannula 2.0 28 07/08/17 14:45 28 07/08/17 14:36 89 20 98 Nasal Cannula 2.0 28 07/08/17 13:52 137/69 07/08/17 12:00 97.8 95 20 137/69 97 Nasal Cannula 3.0 07/08/17 10:55 97 20 96 Nasal Cannula 2.0 28 07/08/17 10:55 28 07/08/17 10:45 97 20 96 Nasal Cannula 2.0 28 07/08/17 09:10 105 154/74 07/08/17 09:10 105 154/74 07/08/17 08:00 98.2 105 19 154/74 98 Nasal Cannula 3.0 07/08/17 07:33 28 07/08/17 07:33 99 20 97 Nasal Cannula 2.0 28 07/08/17 07:26 97 Nasal Cannula 3.0 32 07/08/17 07:26 Nasal Cannula 2.0 28 07/08/17 07:23 99 20 97 Nasal Cannula 2.0 28 07/08/17 05:44 145/79 07/08/17 04:27 22 94 Nasal Cannula 3.0 07/08/17 04:00 98.8 100 21 145/79 91 07/08/17 03:33 98 20 99 Nasal Cannula 2.0 28 07/08/17 03:20 28 07/08/17 03:20 97 20 97 Nasal Cannula 2.0 28 07/08/17 00:00 Nasal Cannula 3.0 07/08/17 00:00 98.0 83 20 132/74 94 07/07/17 23:56 90 18 99 Nasal Cannula 2.0 28 07/07/17 23:39 100 18 98 Nasal Cannula 2.0 28 Intake and Output 07/07/17 07/08/17 19:00 07:00 Intake Total 1540 ml 1825 ml Output Total 550 ml 1100 ml Balance 990 ml 725 ml Free Water 130 ml 200 ml IV Total 750 ml 905 ml Tube Feeding 660 ml 720 ml Output Urine Total 550 ml 1100 ml # Bowel Movements 3 Laboratory Tests 07/08/17 05:00: White Blood Count 6.5, Red Blood Count 3.21L, Hemoglobin 9.3L, Hematocrit 29.4L , Mean Corpuscular Volume 92, Mean Corpuscular Hemoglobin 29.1, Mean Corpuscular Hemoglobin Concent 31.7L, Red Cell Distribution Width 15.7H, Platelet Count 512H, Mean Platelet Volume 6.2L, Neutrophils (%) (Auto) 79.6H, Lymphocytes (%) (Auto) 13.2L, Monocytes (%) (Auto) 4.5, Eosinophils (%) (Auto) 2.2, Basophils (%) (Auto) 0.6, Sodium Level 144, Potassium Level 4.4, Chloride Level 107, Carbon Dioxide Level 31, Anion Gap 6, Blood Urea Nitrogen 38H, Creatinine 1.6H, Estimat Glomerular Filtration Rate 43.7, Glucose Level 271H, Calcium Level 8.6 Height (Feet): 5 Height (Inches): 9.00 Weight (Pounds): 190 General Appearance: confused Respiratory/Chest: decreased breath sounds Abdomen: soft Dejan Copeland Jul 08, 2017 23:41
[2017-07-09] VITALS (7 sets, daily range): BP systolic 124–155; BP diastolic 60–81
[2017-07-09] MEDS: NovoLOG Insulin Flexpen SUBQ SCH ×5 (00:33→23:44)
[2017-07-09] MEDS: Acetylcysteine 20% Soln 4ml HHN SCH ×2 (03:00→07:03)
[2017-07-09] MEDS: Albuterol/Ipratropium 3ml neb HHN SCH ×2 (03:18→07:03)
[2017-07-09] MEDS: HydrALAZINE 25mg tab GT SCH ×3 (05:57→21:02)
[2017-07-09] MEDS: Cefepime HCl 2 GM in D5W 110 ML IVPB SCH (05:58)
[2017-07-09 07:26] LABS: BASOPHILS % (AUTO) 0.6 % (0.0-2.0); EOSINOPHILS % (AUTO) 1.4 % (0.0-3.0); HEMATOCRIT 28.9 % (42.0-52.0); HEMOGLOBIN 8.9 G/DL (14.2-18.0); LYMPHOCYTES % (AUTO) 10.1 % (20.0-45.0); MEAN CORPUSCULAR VOLUME 93 FL (80-99); MONOCYTES % (AUTO) 4.8 % (1.0-10.0); NEUTROPHILS % (AUTO) 83.2 % (45.0-75.0); PLATELET COUNT 508 K/UL (150-450); RED BLOOD COUNT 3.12 M/UL (4.70-6.10); RED CELL DISTRIBUTION WIDTH 15.6 % (11.6-14.8); WHITE BLOOD COUNT 8.3 K/UL (4.8-10.8)
[2017-07-09 07:55] LABS: ANION GAP 6 mmol/L (5-15); BLOOD UREA NITROGEN 47 mg/dL (7-18); CALCIUM 8.8 MG/DL (8.5-10.1); CARBON DIOXIDE 30 MMOL/L (21-32); CHLORIDE 108 MMOL/L (98-107); CREATININE 1.8 MG/DL (0.55-1.30); POTASSIUM 4.8 MMOL/L (3.5-5.1); SODIUM 143 MMOL/L (136-145)
[2017-07-09] MEDS: Aspirin Baby 81mg ORAL SCH (08:33)
[2017-07-09] MEDS: Heparin 5000 units/ml inj SUBQ SCH ×2 (08:34→21:00)
--- NOTE | 2017-07-09 10:41 | Infectious Diseases Prog Note ---
Assessment/Plan Assessment/Plan Fever-low grade, SP ( improved after adding Amikacin ) PSA Pneumonia Sepsis 2ry to HCAP, improving CXR 06/26: Probable mild CHF. Please correlate clinically -CXR 06/22: Lungs and pleural spaces are clear -CXR: There is infiltrate in the left infrahilar region. There is some atelectasis at the right lung base. There is also retrocardiac consolidation -sp cx: +3 MDR PSA (S. Cefepime, Gentamicin/Amikacin) -u./a WBC 5-10, nit neg, leuk est +1, ucx 10-20K C. albicans (colonzier) -rectal wound cx: ESBL E.coli, PsA (colonizers)- no signs of infection 07/22 CoNS bacteremia- suspect contaminant 06/20 +07/22, 06/21 Neg x4 leukocytosis-resolved Lactic acidosis- resolved Cdiff neg 06/25 -Neg: HIV ag/ab, RPR, CrAg serum, FTA-ab Acute hypoxic resp failure s/p intubation 06/20- s/p extubation 06/25 BOOGIE, improving Recent gastritis (dx by EGD) Hx of encephalopathy -05/22 CT head: No evidence of acute intracranial hemorrhage, mass effect or cortical edema. MRI may be obtained for more sensitive evaluation as clinically indicated. Stable chronic infarct in the right frontal lobe. Cerebral and cerebellar atrophy greater than expected for age. Clinical correlation recommended. Mild periventricular hypoattenuation suggestive of chronic ischemic microvascular changes. -previous admission:nical correlation recommended. Mild periventricular hypoattenuation suggestive of chronic ischemic microvascular changes. Small area of right frontal encephalomalacia suggestive of old infarct. -UDS neg -TSH normal -Brain MRI: Chronic and age-related changes. Old right frontal infarct. 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 Plan: - DC Cefepime d# 17 /17 , and Amikacin d# 7/ 7 -06/25 SP IV vancomycin #5, Amikacin #5 -1/6 SP Meropenem #3 -1/4 SP Amikacin x1 -Monitor CBC/BMP, temperatures -aspiration precautions - wound care Subjective Allergies: Coded Allergies: No Known Allergies (Unverified , 05/11/17) Subjective comfortable Afebrile Objective Vital Signs Last 24 Hour Vital Signs Date Time Temp Pulse Resp B/P (MAP) Pulse Ox O2 Delivery O2 Flow Rate FiO2 07/09/17 08:33 120 149/79 07/09/17 08:33 120 149/79 07/09/17 08:23 98.2 120 22 149/79 94 07/09/17 07:13 118 20 99 Nasal Cannula 2.0 28 07/09/17 07:03 94 Nasal Cannula 2.0 28 07/09/17 07:03 117 20 94 Nasal Cannula 2.0 28 07/09/17 07:03 Nasal Cannula 2.0 28 07/09/17 05:57 148/80 07/09/17 04:00 98.9 102 21 146/74 93 Nasal Cannula 3.0 07/09/17 03:29 92 18 99 Nasal Cannula 2.0 28 07/09/17 03:29 28 07/09/17 03:18 95 20 96 Nasal Cannula 2.0 28 07/09/17 00:00 98.8 98 22 142/63 94 Nasal Cannula 3.0 07/08/17 23:29 94 21 96 Nasal Cannula 2.0 28 07/08/17 23:18 94 21 96 Nasal Cannula 2.0 28 07/08/17 23:18 28 07/08/17 21:26 141/75 07/08/17 21:20 100 21 95 Nasal Cannula 2.0 28 07/08/17 21:06 100 21 95 Nasal Cannula 2.0 28 07/08/17 21:06 28 07/08/17 21:05 Nasal Cannula 2.0 28 07/08/17 21:04 95 Nasal Cannula 2.0 28 07/08/17 20:18 100 139/73 07/08/17 20:00 98.4 100 21 139/73 95 Nasal Cannula 3.0 07/08/17 16:00 98.1 98 19 142/78 98 Nasal Cannula 3.0 07/08/17 14:45 89 20 98 Nasal Cannula 2.0 28 07/08/17 14:45 28 07/08/17 14:36 89 20 98 Nasal Cannula 2.0 28 07/08/17 13:52 137/69 07/08/17 12:00 97.8 95 20 137/69 97 Nasal Cannula 3.0 07/08/17 10:55 97 20 96 Nasal Cannula 2.0 28 07/08/17 10:55 28 07/08/17 10:45 97 20 96 Nasal Cannula 2.0 28 Height (Feet): 5 Height (Inches): 9.00 Weight (Pounds): 194 HEENT: anicteric Respiratory/Chest: normal breath sounds Cardiovascular: regular rhythm Abdomen: no organomegaly Laboratory Tests Test 07/09/17 05:10 White Blood Count 8.3 K/UL (4.8-10.8) Red Blood Count 3.12 M/UL (4.70-6.10) L Hemoglobin 8.9 G/DL (14.2-18.0) L Hematocrit 28.9 % (42.0-52.0) L Mean Corpuscular Volume 93 FL (80-99) Mean Corpuscular Hemoglobin 28.4 PG (27.0-31.0) Mean Corpuscular Hemoglobin Concent 30.7 G/DL (32.0-36.0) L Red Cell Distribution Width 15.6 % (11.6-14.8) H Platelet Count 508 K/UL (150-450) H Mean Platelet Volume 6.3 FL (6.5-10.1) L Neutrophils (%) (Auto) 83.2 % (45.0-75.0) H Lymphocytes (%) (Auto) 10.1 % (20.0-45.0) L Monocytes (%) (Auto) 4.8 % (1.0-10.0) Eosinophils (%) (Auto) 1.4 % (0.0-3.0) Basophils (%) (Auto) 0.6 % (0.0-2.0) Sodium Level 143 MMOL/L (136-145) Potassium Level 4.8 MMOL/L (3.5-5.1) Chloride Level 108 MMOL/L (98-107) H Carbon Dioxide Level 30 MMOL/L (21-32) Anion Gap 6 mmol/L (5-15) Blood Urea Nitrogen 47 mg/dL (7-18) H Creatinine 1.8 MG/DL (0.55-1.30) H Estimat Glomerular Filtration Rate 38.2 mL/min (>60) Glucose Level 330 MG/DL (74-106) H Calcium Level 8.8 MG/DL (8.5-10.1) Current Medications Medications (Trade) Dose Ordered Sig/Willem Route PRN Reason Start Time Stop Time Status Last Admin Dose Admin Acetaminophen (Tylenol) 500 mg Q6H PRN ORAL MILD PAIN (1-4). NTE 3GM/DAY 07/06/17 19:01 07/30/17 19:00 Acetaminophen (Tylenol) 650 mg DAILY PRN ORAL Temp > 100.5 07/06/17 19:01 08/05/17 19:00 Acetaminophen (Tylenol) 650 mg Q6H PRN ORAL MODERATE PAIN (5-7) 07/06/17 19:01 07/30/17 19:00 Acetylcysteine (Mucomyst) 100 mg Q4HRT HHN 07/09/17 11:00 08/07/17 18:59 Amikacin Protocol (Amikacin pharmacy to dose) 1 ea DAILY PRN MISC Per rx protocol 07/07/17 09:00 08/02/17 12:29 Amlodipine Besylate (Norvasc) 10 mg DAILY GT 07/07/17 09:00 07/21/17 08:59 07/09/17 08:33 Aspirin (ASA) 81 mg DAILY ORAL 07/07/17 09:00 07/30/17 08:59 07/09/17 08:33 Bisacodyl (Dulcolax) 10 mg DAILYPRN PRN RECTAL constipationIF MOM INEFFECTIVE 07/06/17 21:00 07/26/17 20:59 Cefepime HCl 2 gm/ Dextrose 110 ml @ 220 mls/hr Q24H IVPB 07/08/17 06:00 07/15/17 05:59 07/09/17 05:58 Clonidine HCl (Catapres Tab) 0.1 mg Q4H PRN GT bp of 160 syst and above 07/06/17 19:14 07/21/17 19:13 Collagenase (Santyl) 1 applic DAILY TOPIC 07/07/17 09:00 07/29/17 08:59 07/09/17 08:34 Dextrose (Dextrose 50%) STAT PRN IV Hypoglycemia 07/06/17 21:00 07/26/17 20:59 Famotidine (Pepcid) 20 mg DAILY ORAL 07/07/17 09:00 07/22/17 08:59 07/09/17 08:33 Heparin Sodium (Porcine) (Heparin 5000 units/ml) 5,000 units EVERY 12 HOURS SUBQ 07/06/17 21:00 07/21/17 08:59 07/09/17 08:34 Hydralazine HCl (Apresoline) 25 mg Q8HR GT 07/06/17 22:00 07/21/17 17:59 07/09/17 05:57 Insulin Aspart (NovoLOG) EVERY 6 HOURS SUBQ 07/07/17 00:00 07/21/17 06:29 07/09/17 06:05 Insulin Detemir (Levemir) 15 units QHS SUBQ 07/06/17 21:00 08/03/17 20:59 07/08/17 20:19 Levalbuterol HCl (Xopenex) 1.25 mg TIDRT HHN 07/09/17 13:00 07/14/17 12:59 Levothyroxine Sodium (Synthroid) 50 mcg ACBREAKFAST GT 07/07/17 06:30 07/21/17 06:29 07/09/17 05:57 Metoprolol Tartrate (Lopressor) 100 mg EVERY 12 HOURS GT 07/06/17 21:00 08/03/17 20:59 07/09/17 08:33 Nitroglycerin (Ntg) 0.4 mg Q5M PRN SL CHEST PAIN 07/06/17 18:45 07/21/17 20:59 Sodium Chloride 1,000 ml @ 75 mls/hr [id number] IV 07/06/17 19:00 08/03/17 18:59 07/09/17 00:37 REJI HOANG M.D. Jul 09, 2017 10:41
[2017-07-09] MEDS ORDERED: Levalbuterol Inh UD 1.25mg/0.5ml HHN SCH (13:00)
--- NOTE | 2017-07-09 13:09 | General Progress Note ---
Assessment/Plan Status: stable Assessment/Plan #. Anemia secondary to chronic disease. Anemia workup reviewed. --> Hemoglobin goal >7 --> Trend cbc daily. --> No transfusion needed today. Has been stable >8 #. Coagulopathy, malnutrition and vitamin K deficiency. --> Closely monitor. --> On anticoagulation as needed. --> administer vitamin K as needed. --> Goal INR between 2 and 3 #. Leukocytosis, likely secondary to underlying infection, sepsis, and antibiotics. --> has resolved, wbc count wnl --> S/P vancomycin. #. Acute hypoxemia, requiring intubation. --> Currently extubated #. Acute kidney injury. #. Dysphagia with gastrostomy tube. #. Cerebrovascular accident with right-sided hemiplegia. #. Acute toxic metabolic encephalopathy. #. Hypothyroidism. Subjective Date patient seen: Jul 09, 2017 Constitutional: Denies: no symptoms, chills, diaphoresis, fever, malaise, weakness, other HEENT: Denies: no symptoms, eye pain, blurred vision, tearing, double vision, ear pain, ear discharge, nose pain, nose congestion, throat pain, throat swelling, mouth pain, mouth swelling, other Cardiovascular: Denies: no symptoms, chest pain, edema, irregular heart rate, lightheadedness, palpitations, syncope, other Respiratory: Denies: no symptoms, cough, orthopnea, shortness of breath, SOB with excertion, SOB at rest, sputum, stridor, wheezing, other Gastrointestinal/Abdominal: Denies: no symptoms, abdomen distended, abdominal pain, black stools, tarry stools, blood in stool, constipated, diarrhea, difficulty swallowing, nausea, poor appetite, poor fluid intake, rectal bleeding , vomiting, other Genitourinary: Denies: no symptoms, burning, discharge, frequency, flank pain, hematuria, incontinence, pain, urgency, other Allergies: Coded Allergies: No Known Allergies (Unverified , 05/11/17) Subjective NAD. No fever or chills. Objective Last 24 Hour Vital Signs Date Time Temp Pulse Resp B/P (MAP) Pulse Ox O2 Delivery O2 Flow Rate FiO2 07/09/17 12:01 98.6 97 22 138/81 96 07/09/17 11:40 100 20 99 Nasal Cannula 2.0 28 07/09/17 11:30 98 20 98 Nasal Cannula 2.0 28 07/09/17 08:33 120 149/79 07/09/17 08:33 120 149/79 07/09/17 08:23 98.2 120 22 149/79 94 07/09/17 07:13 118 20 99 Nasal Cannula 2.0 28 07/09/17 07:03 94 Nasal Cannula 2.0 28 07/09/17 07:03 117 20 94 Nasal Cannula 2.0 28 07/09/17 07:03 Nasal Cannula 2.0 28 07/09/17 05:57 148/80 07/09/17 04:00 98.9 102 21 146/74 93 Nasal Cannula 3.0 07/09/17 03:29 92 18 99 Nasal Cannula 2.0 28 07/09/17 03:29 28 07/09/17 03:18 95 20 96 Nasal Cannula 2.0 28 07/09/17 00:00 98.8 98 22 142/63 94 Nasal Cannula 3.0 07/08/17 23:29 94 21 96 Nasal Cannula 2.0 28 07/08/17 23:18 94 21 96 Nasal Cannula 2.0 28 07/08/17 23:18 28 07/08/17 21:26 141/75 07/08/17 21:20 100 21 95 Nasal Cannula 2.0 28 07/08/17 21:06 100 21 95 Nasal Cannula 2.0 28 07/08/17 21:06 28 07/08/17 21:05 Nasal Cannula 2.0 28 07/08/17 21:04 95 Nasal Cannula 2.0 28 07/08/17 20:18 100 139/73 07/08/17 20:00 98.4 100 21 139/73 95 Nasal Cannula 3.0 07/08/17 16:00 98.1 98 19 142/78 98 Nasal Cannula 3.0 07/08/17 14:45 89 20 98 Nasal Cannula 2.0 28 07/08/17 14:45 28 07/08/17 14:36 89 20 98 Nasal Cannula 2.0 28 07/08/17 13:52 137/69 Intake and Output 07/08/17 07/09/17 19:00 07:00 Intake Total 1320 ml 1680 ml Output Total 1000 ml 1500 ml Balance 320 ml 180 ml Free Water 150 ml 100 ml IV Total 450 ml 860 ml Tube Feeding 720 ml 720 ml Output Urine Total 1000 ml 1500 ml # Bowel Movements 1 Laboratory Tests 07/09/17 05:10: White Blood Count 8.3, Red Blood Count 3.12L, Hemoglobin 8.9L, Hematocrit 28.9L , Mean Corpuscular Volume 93, Mean Corpuscular Hemoglobin 28.4, Mean Corpuscular Hemoglobin Concent 30.7L, Red Cell Distribution Width 15.6H, Platelet Count 508H, Mean Platelet Volume 6.3L, Neutrophils (%) (Auto) 83.2H, Lymphocytes (%) (Auto) 10.1L, Monocytes (%) (Auto) 4.8, Eosinophils (%) (Auto) 1.4, Basophils (%) (Auto) 0.6, Sodium Level 143, Potassium Level 4.8, Chloride Level 108H, Carbon Dioxide Level 30, Anion Gap 6, Blood Urea Nitrogen 47H, Creatinine 1.8H, Estimat Glomerular Filtration Rate 38.2, Glucose Level 330H, Calcium Level 8.8 Height (Feet): 5 Height (Inches): 9.00 Weight (Pounds): 194 General Appearance: no apparent distress Respiratory/Chest: decreased breath sounds Abdomen: non tender, soft Dejan Copeland Jul 09, 2017 13:09
[2017-07-09] MEDS: Levalbuterol Inh UD 1.25mg/0.5ml HHN SCH ×3 (15:02→19:34)
--- NOTE | 2017-07-09 15:03 | Nephrology Progress Note ---
Assessment/Plan Problem List: (1) Acute renal failure (2) Respiratory failure requiring intubation (3) Urosepsis (4) Anemia Assessment: worsening (5) Hypoalbuminemia Assessment BOOGIE (acute kidney injury), Cr 1.8 today , lower H&H lower Respiratory failure requiring intubation Respiratory failure with hypoxia Aspiration pneumonia, Urosepsis Anemia ACS (acute coronary syndrome), Non St Elevation TN CHF (congestive heart failure) Acute encephalopathy GT feeding LLL atelectesis worsening, Plan plan resp support will need tracheostomy to prevent worsening atelectaisis transfused avoid Nephrotoxics monitor renal parameters Keep BP and BS in check Optimize pulmonary and cardiac support DC planning Subjective ROS Limited/Unobtainable: No Constitutional: Reports: malaise Objective Objective Last 24 Hour Vital Signs Date Time Temp Pulse Resp B/P (MAP) Pulse Ox O2 Delivery O2 Flow Rate FiO2 07/09/17 12:01 98.6 97 22 138/81 96 07/09/17 11:40 100 20 99 Nasal Cannula 2.0 28 07/09/17 11:30 98 20 98 Nasal Cannula 2.0 28 07/09/17 08:33 120 149/79 07/09/17 08:33 120 149/79 07/09/17 08:23 98.2 120 22 149/79 94 07/09/17 07:13 118 20 99 Nasal Cannula 2.0 28 07/09/17 07:03 94 Nasal Cannula 2.0 28 07/09/17 07:03 117 20 94 Nasal Cannula 2.0 28 07/09/17 07:03 Nasal Cannula 2.0 28 07/09/17 05:57 148/80 07/09/17 04:00 98.9 102 21 146/74 93 Nasal Cannula 3.0 07/09/17 03:29 92 18 99 Nasal Cannula 2.0 28 07/09/17 03:29 28 07/09/17 03:18 95 20 96 Nasal Cannula 2.0 28 07/09/17 00:00 98.8 98 22 142/63 94 Nasal Cannula 3.0 07/08/17 23:29 94 21 96 Nasal Cannula 2.0 28 07/08/17 23:18 94 21 96 Nasal Cannula 2.0 28 07/08/17 23:18 28 07/08/17 21:26 141/75 07/08/17 21:20 100 21 95 Nasal Cannula 2.0 28 07/08/17 21:06 100 21 95 Nasal Cannula 2.0 28 07/08/17 21:06 28 07/08/17 21:05 Nasal Cannula 2.0 28 07/08/17 21:04 95 Nasal Cannula 2.0 28 07/08/17 20:18 100 139/73 07/08/17 20:00 98.4 100 21 139/73 95 Nasal Cannula 3.0 07/08/17 16:00 98.1 98 19 142/78 98 Nasal Cannula 3.0 Intake and Output 07/08/17 07/09/17 19:00 07:00 Intake Total 1320 ml 1680 ml Output Total 1000 ml 1500 ml Balance 320 ml 180 ml Free Water 150 ml 100 ml IV Total 450 ml 860 ml Tube Feeding 720 ml 720 ml Output Urine Total 1000 ml 1500 ml # Bowel Movements 1 Laboratory Tests 07/09/17 05:10: White Blood Count 8.3, Red Blood Count 3.12L, Hemoglobin 8.9L, Hematocrit 28.9L , Mean Corpuscular Volume 93, Mean Corpuscular Hemoglobin 28.4, Mean Corpuscular Hemoglobin Concent 30.7L, Red Cell Distribution Width 15.6H, Platelet Count 508H, Mean Platelet Volume 6.3L, Neutrophils (%) (Auto) 83.2H, Lymphocytes (%) (Auto) 10.1L, Monocytes (%) (Auto) 4.8, Eosinophils (%) (Auto) 1.4, Basophils (%) (Auto) 0.6, Sodium Level 143, Potassium Level 4.8, Chloride Level 108H, Carbon Dioxide Level 30, Anion Gap 6, Blood Urea Nitrogen 47H, Creatinine 1.8H, Estimat Glomerular Filtration Rate 38.2, Glucose Level 330H, Calcium Level 8.8 Height (Feet): 5 Height (Inches): 9.00 Weight (Pounds): 194 General Appearance: no apparent distress, lethargic Respiratory/Chest: decreased breath sounds Abdomen: soft Objective no other changes GARCÍA READ Jul 09, 2017 15:03
--- NOTE | 2017-07-09 16:24 | Diagnostic Imaging Report ---
Indication: Dyspnea Technique: XRAY Chest 1v Comparison: 07/08/2017 Findings: Heart size and mediastinal contours are stable. There is persistent interstitial opacification/edema. There is interval development of patchy retrocardiac opacities thought to represent atelectasis. There is no pleural effusion. No pneumothorax. Impression: Cardiomegaly and interstitial opacification/edema. Development of patchy retrocardiac opacity thought to be related to atelectasis. Clinical correlation and follow-up exam recommended.
[2017-07-09] MEDS ORDERED: 1/2 NS 1000ml IV ONE (17:08)
--- NOTE | 2017-07-09 18:17 | Pulmonology Progress Note ---
Assessment/Plan Problems: (1) Acute renal failure (2) Aspiration pneumonia (3) Feeding by G-tube (4) History of CVA (cerebrovascular accident) (5) BOOGIE (acute kidney injury) Assessment/Plan cxr showing ateletasis again off bipap now renal failure improving on cefepime and amikacin check eclectrolytes Subjective ROS Limited/Unobtainable: Yes Constitutional: Reports: no symptoms HEENT: Repors: no symptoms Respiratory: Reports: no symptoms Allergies: Coded Allergies: No Known Allergies (Unverified , 05/11/17) Objective Last 24 Hour Vital Signs Date Time Temp Pulse Resp B/P (MAP) Pulse Ox O2 Delivery O2 Flow Rate FiO2 07/09/17 16:08 98.4 99 22 140/75 96 07/09/17 15:24 138/81 07/09/17 15:09 112 20 99 Nasal Cannula 2.0 28 07/09/17 14:55 105 20 90 Nasal Cannula 2.0 28 07/09/17 12:01 98.6 97 22 138/81 96 07/09/17 11:40 100 20 99 Nasal Cannula 2.0 28 07/09/17 11:30 98 20 98 Nasal Cannula 2.0 28 07/09/17 08:33 120 149/79 07/09/17 08:33 120 149/79 07/09/17 08:23 98.2 120 22 149/79 94 07/09/17 07:13 118 20 99 Nasal Cannula 2.0 28 07/09/17 07:03 94 Nasal Cannula 2.0 28 07/09/17 07:03 117 20 94 Nasal Cannula 2.0 28 07/09/17 07:03 Nasal Cannula 2.0 28 07/09/17 05:57 148/80 07/09/17 04:00 98.9 102 21 146/74 93 Nasal Cannula 3.0 07/09/17 03:29 92 18 99 Nasal Cannula 2.0 28 07/09/17 03:29 28 07/09/17 03:18 95 20 96 Nasal Cannula 2.0 28 07/09/17 00:00 98.8 98 22 142/63 94 Nasal Cannula 3.0 07/08/17 23:29 94 21 96 Nasal Cannula 2.0 28 07/08/17 23:18 94 21 96 Nasal Cannula 2.0 28 07/08/17 23:18 28 07/08/17 21:26 141/75 07/08/17 21:20 100 21 95 Nasal Cannula 2.0 28 07/08/17 21:06 100 21 95 Nasal Cannula 2.0 28 07/08/17 21:06 28 07/08/17 21:05 Nasal Cannula 2.0 28 07/08/17 21:04 95 Nasal Cannula 2.0 28 07/08/17 20:18 100 139/73 07/08/17 20:00 98.4 100 21 139/73 95 Nasal Cannula 3.0 Intake and Output 07/08/17 07/09/17 19:00 07:00 Intake Total 1320 ml 1680 ml Output Total 1000 ml 1500 ml Balance 320 ml 180 ml Free Water 150 ml 100 ml IV Total 450 ml 860 ml Tube Feeding 720 ml 720 ml Output Urine Total 1000 ml 1500 ml # Bowel Movements 1 Objective General Appearance: no acute distress HEENT: normocephalic, atraumatic Respiratory/Chest: lungs clear, no respiratory distress, no accessory muscle use Cardiovascular: normal rate, no JVD, CL-femoral intact Abdomen: normal bowel sounds, soft, non tender Extremities: no edema Neurologic/Psychiatric: alert, responsive Musculoskeletal: normal muscle bulk Laboratory Tests 07/09/17 05:10: White Blood Count 8.3, Red Blood Count 3.12L, Hemoglobin 8.9L, Hematocrit 28.9L , Mean Corpuscular Volume 93, Mean Corpuscular Hemoglobin 28.4, Mean Corpuscular Hemoglobin Concent 30.7L, Red Cell Distribution Width 15.6H, Platelet Count 508H, Mean Platelet Volume 6.3L, Neutrophils (%) (Auto) 83.2H, Lymphocytes (%) (Auto) 10.1L, Monocytes (%) (Auto) 4.8, Eosinophils (%) (Auto) 1.4, Basophils (%) (Auto) 0.6, Sodium Level 143, Potassium Level 4.8, Chloride Level 108H, Carbon Dioxide Level 30, Anion Gap 6, Blood Urea Nitrogen 47H, Creatinine 1.8H, Estimat Glomerular Filtration Rate 38.2, Glucose Level 330H, Calcium Level 8.8 Current Medications Medications (Trade) Dose Ordered Sig/Willem Route PRN Reason Start Time Stop Time Status Last Admin Dose Admin Acetaminophen (Tylenol) 500 mg Q6H PRN ORAL MILD PAIN (1-4). NTE 3GM/DAY 07/06/17 19:01 07/30/17 19:00 Acetaminophen (Tylenol) 650 mg DAILY PRN ORAL Temp > 100.5 07/06/17 19:01 08/05/17 19:00 Acetaminophen (Tylenol) 650 mg Q6H PRN ORAL MODERATE PAIN (5-7) 07/06/17 19:01 07/30/17 19:00 Acetylcysteine (Mucomyst) 100 mg Q4HRT HHN 07/09/17 11:00 08/07/17 18:59 07/09/17 11:29 Amlodipine Besylate (Norvasc) 10 mg DAILY GT 07/07/17 09:00 07/21/17 08:59 07/09/17 08:33 Aspirin (ASA) 81 mg DAILY ORAL 07/07/17 09:00 07/30/17 08:59 07/09/17 08:33 Bisacodyl (Dulcolax) 10 mg DAILYPRN PRN RECTAL constipationIF MOM INEFFECTIVE 07/06/17 21:00 07/26/17 20:59 Clonidine HCl (Catapres Tab) 0.1 mg Q4H PRN GT bp of 160 syst and above 07/06/17 19:14 2 19:13 Collagenase (Santyl) 1 applic DAILY TOPIC 07/07/17 09:00 07/29/17 08:59 07/09/17 08:34 Dextrose (Dextrose 50%) STAT PRN IV Hypoglycemia 07/06/17 21:00 07/26/17 20:59 Famotidine (Pepcid) 20 mg DAILY ORAL 07/07/17 09:00 07/22/17 08:59 07/09/17 08:33 Heparin Sodium (Porcine) (Heparin 5000 units/ml) 5,000 units EVERY 12 HOURS SUBQ 07/06/17 21:00 07/21/17 08:59 07/09/17 08:34 Hydralazine HCl (Apresoline) 25 mg Q8HR GT 07/06/17 22:00 07/21/17 17:59 07/09/17 15:24 Insulin Aspart (NovoLOG) EVERY 6 HOURS SUBQ 07/07/17 00:00 07/21/17 06:29 07/09/17 17:52 Insulin Detemir (Levemir) 15 units QHS SUBQ 07/06/17 21:00 08/03/17 20:59 07/08/17 20:19 Levalbuterol HCl (Xopenex) 1.25 mg QIDRT HHN 07/09/17 15:00 07/14/17 14:59 Levothyroxine Sodium (Synthroid) 50 mcg ACBREAKFAST GT 07/07/17 06:30 07/21/17 06:29 07/09/17 05:57 Metoprolol Tartrate (Lopressor) 100 mg EVERY 12 HOURS GT 07/06/17 21:00 08/03/17 20:59 07/09/17 08:33 Nitroglycerin (Ntg) 0.4 mg Q5M PRN SL CHEST PAIN 07/06/17 18:45 07/21/17 20:59 Sodium Chloride 1,000 ml @ 75 mls/hr [id number] IV 07/06/17 19:00 08/03/17 18:59 07/09/17 15:24 JESSE ZAVALA Jul 09, 2017 18:17
[2017-07-09 19:21] LABS: APPEARANCE,URINE VERY CLOUDY; BILIRUBIN, URINE NEGATIVE (NEGATIVE); GLUCOSE, URINE (UA) 3+ (NEGATIVE); KETONES,URINE NEGATIVE (NEGATIVE); LEUKOCYTE ESTERASE ,URINE 3+ (NEGATIVE); NITRITE,URINE NEGATIVE (NEGATIVE); PH,URINE 7 (4.5-8.0); PROTEIN,URINE 3+ (NEGATIVE); UROBILINOGEN,URINE NORMAL MG/DL (0.0-1.0)
[2017-07-09 19:23] LABS: COLOR,URINE RED
[2017-07-09] MEDS: Levemir Flexpen SUBQ SCH (21:04)
[2017-07-10 04:35] VITALS: BP 146/71
[2017-07-10] MEDS: HydrALAZINE 25mg tab GT SCH ×3 (05:53→20:37)
[2017-07-10] MEDS: NovoLOG Insulin Flexpen SUBQ SCH ×4 (05:55→23:55)
[2017-07-10 07:30] LABS: BASOPHILS % (AUTO) 0.6 % (0.0-2.0); EOSINOPHILS % (AUTO) 0.9 % (0.0-3.0); HEMATOCRIT 28.5 % (42.0-52.0); HEMOGLOBIN 8.8 G/DL (14.2-18.0); LYMPHOCYTES % (AUTO) 9.7 % (20.0-45.0); MEAN CORPUSCULAR VOLUME 92 FL (80-99); MONOCYTES % (AUTO) 5.4 % (1.0-10.0); NEUTROPHILS % (AUTO) 83.4 % (45.0-75.0); PLATELET COUNT 503 K/UL (150-450); RED BLOOD COUNT 3.09 M/UL (4.70-6.10); RED CELL DISTRIBUTION WIDTH 15.5 % (11.6-14.8)
[2017-07-10] MEDS: Levalbuterol Inh UD 1.25mg/0.5ml HHN SCH ×6 (07:40→22:33)
[2017-07-10 07:43] LABS: ALANINE AMINOTRANSFERASE 31 U/L (12-78); ALBUMIN 1.7 G/DL (3.4-5.0); ALBUMIN/GLOBULIN RATIO 0.3 (1.0-2.7); ALKALINE PHOSPHATASE 98 U/L (46-116); ANION GAP 7 mmol/L (5-15); ASPARTATE AMINO TRANSFERASE 24 U/L (15-37); BILIRUBIN,TOTAL 0.2 MG/DL (0.2-1.0); BLOOD UREA NITROGEN 56 mg/dL (7-18); CALCIUM 8.9 MG/DL (8.5-10.1); CARBON DIOXIDE 31 MMOL/L (21-32); CHLORIDE 108 MMOL/L (98-107); CREATININE 1.9 MG/DL (0.55-1.30); POTASSIUM 4.7 MMOL/L (3.5-5.1); SODIUM 146 MMOL/L (136-145)
[2017-07-10 08:30] VITALS: BP 151/84
[2017-07-10] MEDS: Aspirin Baby 81mg ORAL SCH (08:59)
--- NOTE | 2017-07-10 10:09 | Infectious Diseases Prog Note ---
Assessment/Plan Assessment/Plan A: Fever-low grade, SP ( improved after adding Amikacin ) PSA Pneumonia Sepsis 2ry to HCAP, improving CXR 06/26: Probable mild CHF. Please correlate clinically -CXR 06/22: Lungs and pleural spaces are clear -CXR: There is infiltrate in the left infrahilar region. There is some atelectasis at the right lung base. There is also retrocardiac consolidation -sp cx: +3 MDR PSA (S. Cefepime, Gentamicin/Amikacin) -u./a WBC 5-10, nit neg, leuk est +1, ucx 10-20K C. albicans (colonzier) -rectal wound cx: ESBL E.coli, PsA (colonizers)- no signs of infection 07/22 CoNS bacteremia- suspect contaminant 06/20 +07/22, 06/21 Neg x4 leukocytosis-resolved Lactic acidosis- resolved Cdiff neg 06/25 -Neg: HIV ag/ab, RPR, CrAg serum, FTA-ab Acute hypoxic resp failure s/p intubation 06/20- s/p extubation 06/25 BOOGIE, improving Recent gastritis (dx by EGD) Hx of encephalopathy -05/22 CT head: No evidence of acute intracranial hemorrhage, mass effect or cortical edema. MRI may be obtained for more sensitive evaluation as clinically indicated. Stable chronic infarct in the right frontal lobe. Cerebral and cerebellar atrophy greater than expected for age. Clinical correlation recommended. Mild periventricular hypoattenuation suggestive of chronic ischemic microvascular changes. -previous admission:nical correlation recommended. Mild periventricular hypoattenuation suggestive of chronic ischemic microvascular changes. Small area of right frontal encephalomalacia suggestive of old infarct. -UDS neg -TSH normal -Brain MRI: Chronic and age-related changes. Old right frontal infarct. 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 Plan: - Monitor pt off of Ab Rx - 07/09 SP Cefepime d# 17 /17 , and Amikacin d# 7/ 7 -06/25 SP IV vancomycin #5, Amikacin #5 -1/6 SP Meropenem #3 -1/4 SP Amikacin x1 -Monitor CBC/BMP, temperatures -aspiration precautions - wound care Subjective Constitutional: Denies: no symptoms, fever, chills, fatigue, anorexia, drenching sweats, other Allergies: Coded Allergies: No Known Allergies (Unverified , 05/11/17) Subjective comfortable Afebrile Objective Vital Signs Last 24 Hour Vital Signs Date Time Temp Pulse Resp B/P (MAP) Pulse Ox O2 Delivery O2 Flow Rate FiO2 07/10/17 08:59 108 151/84 07/10/17 08:59 108 151/84 07/10/17 08:30 97.9 108 22 151/84 97 07/10/17 07:46 112 20 100 Nasal Cannula 2.0 28 07/10/17 07:46 Nasal Cannula 2.0 28 07/10/17 07:33 107 20 98 Nasal Cannula 2.0 28 07/10/17 07:30 96 Nasal Cannula 2.0 28 07/10/17 05:53 146/71 07/10/17 04:35 98.0 100 22 146/71 95 07/10/17 04:35 95 Nasal Cannula 2.0 07/10/17 03:20 Nasal Cannula 07/10/17 03:18 Nasal Cannula 07/10/17 00:00 95 Nasal Cannula 2.0 07/09/17 23:55 98.1 95 22 155/79 95 07/09/17 23:14 Nasal Cannula 07/09/17 23:14 Nasal Cannula 07/09/17 21:02 109 124/60 07/09/17 21:02 124/60 07/09/17 20:00 98.1 109 20 124/60 95 Nasal Cannula 2.0 07/09/17 19:43 28 07/09/17 19:43 97 20 99 Nasal Cannula 2.0 28 07/09/17 19:36 96 Nasal Cannula 2.0 28 07/09/17 19:36 Nasal Cannula 2.0 28 07/09/17 19:34 95 20 96 Nasal Cannula 2.0 07/09/17 16:08 98.4 99 22 140/75 96 07/09/17 15:24 138/81 07/09/17 15:09 112 20 99 Nasal Cannula 2.0 28 07/09/17 14:55 105 20 90 Nasal Cannula 2.0 28 07/09/17 12:01 98.6 97 22 138/81 96 07/09/17 11:40 100 20 99 Nasal Cannula 2.0 28 07/09/17 11:30 98 20 98 Nasal Cannula 2.0 28 Height (Feet): 5 Height (Inches): 9.00 Weight (Pounds): 191 HEENT: anicteric Respiratory/Chest: no respiratory distress Cardiovascular: regular rhythm Abdomen: no organomegaly Microbiology Date/Time Source Procedure Growth Status 07/09/17 19:00 Urine,Clean Catch Urine Culture - Preliminary NO GROWTH Resulted Laboratory Tests Test 07/09/17 19:00 07/10/17 05:30 Urine Color Red Urine Appearance Very cloudy Urine pH 7 (4.5-8.0) Urine Specific [place] 1.005 (1.005-1.035) Urine Protein 3+ (NEGATIVE) H Urine Glucose (UA) 3+ (NEGATIVE) H Urine Ketones Negative (NEGATIVE) Urine Occult Blood 5+ (NEGATIVE) H Urine Nitrite Negative (NEGATIVE) Urine Bilirubin Negative (NEGATIVE) Urine Urobilinogen Normal MG/DL (0.0-1.0) Urine Leukocyte Esterase 3+ (NEGATIVE) H Urine RBC Tntc /HPF (0 - 0) H Urine WBC Tntc /HPF (0 - 0) H Urine Squamous Epithelial Cells None /LPF (NONE/OCC) Urine Bacteria Few /HPF (NONE) White Blood Count 10.0 K/UL (4.8-10.8) Red Blood Count 3.09 M/UL (4.70-6.10) L Hemoglobin 8.8 G/DL (14.2-18.0) L Hematocrit 28.5 % (42.0-52.0) L Mean Corpuscular Volume 92 FL (80-99) Mean Corpuscular Hemoglobin 28.6 PG (27.0-31.0) Mean Corpuscular Hemoglobin Concent 30.9 G/DL (32.0-36.0) L Red Cell Distribution Width 15.5 % (11.6-14.8) H Platelet Count 503 K/UL (150-450) H Mean Platelet Volume 6.1 FL (6.5-10.1) L Neutrophils (%) (Auto) 83.4 % (45.0-75.0) H Lymphocytes (%) (Auto) 9.7 % (20.0-45.0) L Monocytes (%) (Auto) 5.4 % (1.0-10.0) Eosinophils (%) (Auto) 0.9 % (0.0-3.0) Basophils (%) (Auto) 0.6 % (0.0-2.0) Sodium Level 146 MMOL/L (136-145) H Potassium Level 4.7 MMOL/L (3.5-5.1) Chloride Level 108 MMOL/L (98-107) H Carbon Dioxide Level 31 MMOL/L (21-32) Anion Gap 7 mmol/L (5-15) Blood Urea Nitrogen 56 mg/dL (7-18) H Creatinine 1.9 MG/DL (0.55-1.30) H Estimat Glomerular Filtration Rate 35.9 mL/min (>60) Glucose Level 338 MG/DL (74-106) H Calcium Level 8.9 MG/DL (8.5-10.1) Total Bilirubin 0.2 MG/DL (0.2-1.0) Aspartate Amino Transf (AST/SGOT) 24 U/L (15-37) Alanine Aminotransferase (ALT/SGPT) 31 U/L (12-78) Alkaline Phosphatase 98 U/L (46-116) Pro-B-Type Natriuretic Peptide 4710 pg/mL (0-125) H Total Protein 7.0 G/DL (6.4-8.2) Albumin 1.7 G/DL (3.4-5.0) L Globulin 5.3 g/dL Albumin/Globulin Ratio 0.3 (1.0-2.7) L Current Medications Medications (Trade) Dose Ordered Sig/Willme Route PRN Reason Start Time Stop Time Status Last Admin Dose Admin Acetaminophen (Tylenol) 500 mg Q6H PRN ORAL MILD PAIN (1-4). NTE 3GM/DAY 07/06/17 19:01 07/30/17 19:00 Acetaminophen (Tylenol) 650 mg DAILY PRN ORAL Temp > 100.5 07/06/17 19:01 08/05/17 19:00 Acetaminophen (Tylenol) 650 mg Q6H PRN ORAL MODERATE PAIN (5-7) 07/06/17 19:01 07/30/17 19:00 Acetylcysteine (Mucomyst) 100 mg Q4HRT HHN 07/09/17 11:00 2/20/18 18:59 07/10/17 07:42 Amlodipine Besylate (Norvasc) 10 mg DAILY GT 07/07/17 09:00 07/21/17 08:59 07/10/17 08:59 Aspirin (ASA) 81 mg DAILY ORAL 07/07/17 09:00 07/30/17 08:59 07/10/17 08:59 Bisacodyl (Dulcolax) 10 mg DAILYPRN PRN RECTAL constipationIF MOM INEFFECTIVE 07/06/17 21:00 07/26/17 20:59 Clonidine HCl (Catapres Tab) 0.1 mg Q4H PRN GT bp of 160 syst and above 07/06/17 19:14 07/21/17 19:13 Collagenase (Santyl) 1 applic DAILY TOPIC 07/07/17 09:00 07/29/17 08:59 07/10/17 08:59 Dextrose (Dextrose 50%) STAT PRN IV Hypoglycemia 07/06/17 21:00 07/26/17 20:59 Famotidine (Pepcid) 20 mg DAILY ORAL 07/07/17 09:00 07/22/17 08:59 07/10/17 08:59 Heparin Sodium (Porcine) (Heparin 5000 units/ml) 5,000 units EVERY 12 HOURS SUBQ 07/06/17 21:00 07/21/17 08:59 07/09/17 08:34 Hydralazine HCl (Apresoline) 25 mg Q8HR GT 07/06/17 22:00 07/21/17 17:59 07/10/17 05:53 Insulin Aspart (NovoLOG) EVERY 6 HOURS SUBQ 07/07/17 00:00 07/21/17 06:29 07/10/17 05:55 Insulin Detemir (Levemir) 15 units QHS SUBQ 07/06/17 21:00 08/03/17 20:59 07/09/17 21:04 Levalbuterol HCl (Xopenex) 1.25 mg Q4HRT HHN 07/10/17 07:00 07/15/17 06:59 07/10/17 07:42 Levothyroxine Sodium (Synthroid) 50 mcg ACBREAKFAST GT 07/07/17 06:30 07/21/17 06:29 07/10/17 05:54 Metoprolol Tartrate (Lopressor) 100 mg EVERY 12 HOURS GT 07/06/17 21:00 08/03/17 20:59 07/10/17 08:59 Nitroglycerin (Ntg) 0.4 mg Q5M PRN SL CHEST PAIN 07/06/17 18:45 07/21/17 20:59 Sodium Chloride 1,000 ml @ 75 mls/hr [id number] IV 07/06/17 19:00 08/03/17 18:59 07/10/17 05:22 REJI HOANG M.D. Jul 10, 2017 10:09
[2017-07-10] MEDS: Heparin 5000 units/ml inj SUBQ SCH ×2 (10:20→20:37)
[2017-07-10 11:43] VITALS: BP 150/76
--- NOTE | 2017-07-10 11:56 | Nephrology Progress Note ---
Assessment/Plan Problem List: (1) Acute renal failure (2) Respiratory failure requiring intubation (3) Urosepsis (4) Anemia Assessment: worsening (5) Hypoalbuminemia Assessment BOOGIE (acute kidney injury), Cr 1.9 today , lower H&H lower Respiratory failure requiring intubation Respiratory failure with hypoxia Aspiration pneumonia, Urosepsis Anemia ACS (acute coronary syndrome), Non St Elevation MT CHF (congestive heart failure) Acute encephalopathy GT feeding LLL atelectesis worsening, Plan plan resp support will need tracheostomy to prevent worsening atelectaisis transfused avoid Nephrotoxics monitor renal parameters Keep BP and BS in check Optimize pulmonary and cardiac support DC planning Subjective ROS Limited/Unobtainable: No Objective Objective Last 24 Hour Vital Signs Date Time Temp Pulse Resp B/P (MAP) Pulse Ox O2 Delivery O2 Flow Rate FiO2 07/10/17 11:50 108 20 100 Nasal Cannula 2.0 28 07/10/17 11:43 98.2 89 22 150/76 98 07/10/17 11:40 103 20 98 Nasal Cannula 2.0 28 07/10/17 08:59 108 151/84 07/10/17 08:59 108 151/84 07/10/17 08:30 97.9 108 22 151/84 97 07/10/17 07:46 112 20 100 Nasal Cannula 2.0 28 07/10/17 07:46 Nasal Cannula 2.0 28 07/10/17 07:33 107 20 98 Nasal Cannula 2.0 28 07/10/17 07:30 96 Nasal Cannula 2.0 28 07/10/17 05:53 146/71 07/10/17 04:35 98.0 100 22 146/71 95 07/10/17 04:35 95 Nasal Cannula 2.0 07/10/17 03:20 Nasal Cannula 07/10/17 03:18 Nasal Cannula 07/10/17 00:00 95 Nasal Cannula 2.0 07/09/17 23:55 98.1 95 22 155/79 95 07/09/17 23:14 Nasal Cannula 07/09/17 23:14 Nasal Cannula 07/09/17 21:02 109 124/60 07/09/17 21:02 124/60 07/09/17 20:00 98.1 109 20 124/60 95 Nasal Cannula 2.0 07/09/17 19:43 28 07/09/17 19:43 97 20 99 Nasal Cannula 2.0 28 07/09/17 19:36 96 Nasal Cannula 2.0 28 07/09/17 19:36 Nasal Cannula 2.0 28 07/09/17 19:34 95 20 96 Nasal Cannula 2.0 28 07/09/17 16:08 98.4 99 22 140/75 96 07/09/17 15:24 138/81 07/09/17 15:09 112 20 99 Nasal Cannula 2.0 28 07/09/17 14:55 105 20 90 Nasal Cannula 2.0 28 07/09/17 12:01 98.6 97 22 138/81 96 Intake and Output 07/09/17 07/10/17 19:00 07:00 Intake Total 1535 ml 1740 ml Output Total 1500 ml 900 ml Balance 35 ml 840 ml Free Water 65 ml 180 ml IV Total 750 ml 900 ml Tube Feeding 720 ml 660 ml Output Urine Total 1500 ml 900 ml Laboratory Tests 07/09/17 19:00: Urine Color Red, Urine Appearance Very cloudy, Urine pH 7, Urine Specific [place] 1.005, Urine Protein 3+H, Urine Glucose (UA) 3+H, Urine Ketones Negative , Urine Occult Blood 5+H, Urine Nitrite Negative, Urine Bilirubin Negative, Urine Urobilinogen Normal, Urine Leukocyte Esterase 3+H, Urine RBC TntcH, Urine WBC TntcH, Urine Squamous Epithelial Cells None, Urine Bacteria Few 07/10/17 05:30: White Blood Count 10.0, Red Blood Count 3.09L, Hemoglobin 8.8L, Hematocrit 28.5L , Mean Corpuscular Volume 92, Mean Corpuscular Hemoglobin 28.6, Mean Corpuscular Hemoglobin Concent 30.9L, Red Cell Distribution Width 15.5H, Platelet Count 503H, Mean Platelet Volume 6.1L, Neutrophils (%) (Auto) 83.4H, Lymphocytes (%) (Auto) 9.7L, Monocytes (%) (Auto) 5.4, Eosinophils (%) (Auto) 0.9, Basophils (%) (Auto) 0.6, Sodium Level 146H, Potassium Level 4.7, Chloride Level 108H, Carbon Dioxide Level 31, Anion Gap 7, Blood Urea Nitrogen 56H, Creatinine 1.9H, Estimat Glomerular Filtration Rate 35.9, Glucose Level 338H, Calcium Level 8.9, Total Bilirubin 0.2, Aspartate Amino Transf (AST/SGOT) 24, Alanine Aminotransferase (ALT/SGPT) 31, Alkaline Phosphatase 98, Pro-B-Type Natriuretic Peptide 4710H, Total Protein 7.0, Albumin 1.7L, Globulin 5.3, Albumin/Globulin Ratio 0.3L Height (Feet): 5 Height (Inches): 9.00 Weight (Pounds): 191 General Appearance: no apparent distress, lethargic Cardiovascular: tachycardia Respiratory/Chest: decreased breath sounds Abdomen: soft Objective no other changes GARCÍA READ Jul 10, 2017 11:56
--- NOTE | 2017-07-10 12:51 | Diagnostic Imaging Report ---
Indication: Dyspnea Technique: One view of the chest Comparison: 07/09/2017 Findings: Mild interstitial prominence persists. Pleural spaces are clear.. Heart size is borderline enlarged. No significant interim change Impression: Unchanged, over one day, findings as above.
--- NOTE | 2017-07-10 13:28 | Pulmonology Progress Note ---
Assessment/Plan Problems: (1) Acute renal failure (2) Aspiration pneumonia (3) Feeding by G-tube (4) History of CVA (cerebrovascular accident) (5) BOOGIE (acute kidney injury) Assessment/Plan cxr better today 07/10 continue IV fluids off abx off bipap now renal failure improving watch bun/creatinine check eclectrolytes Subjective ROS Limited/Unobtainable: No Constitutional: Reports: no symptoms HEENT: Repors: no symptoms Allergies: Coded Allergies: No Known Allergies (Unverified , 05/11/17) Objective Last 24 Hour Vital Signs Date Time Temp Pulse Resp B/P (MAP) Pulse Ox O2 Delivery O2 Flow Rate FiO2 07/10/17 11:50 108 20 100 Nasal Cannula 2.0 28 07/10/17 11:43 98.2 89 22 150/76 98 07/10/17 11:40 103 20 98 Nasal Cannula 2.0 28 07/10/17 08:59 108 151/84 07/10/17 08:59 108 151/84 07/10/17 08:30 97.9 108 22 151/84 97 07/10/17 07:46 112 20 100 Nasal Cannula 2.0 28 07/10/17 07:46 Nasal Cannula 2.0 28 07/10/17 07:33 107 20 98 Nasal Cannula 2.0 28 07/10/17 07:30 96 Nasal Cannula 2.0 28 07/10/17 05:53 146/71 07/10/17 04:35 98.0 100 22 146/71 95 07/10/17 04:35 95 Nasal Cannula 2.0 07/10/17 03:20 Nasal Cannula 07/10/17 03:18 Nasal Cannula 07/10/17 00:00 95 Nasal Cannula 2.0 07/09/17 23:55 98.1 95 22 155/79 95 07/09/17 23:14 Nasal Cannula 07/09/17 23:14 Nasal Cannula 07/09/17 21:02 109 124/60 07/09/17 21:02 124/60 07/09/17 20:00 98.1 109 20 124/60 95 Nasal Cannula 2.0 07/09/17 19:43 28 07/09/17 19:43 97 20 99 Nasal Cannula 2.0 28 07/09/17 19:36 96 Nasal Cannula 2.0 28 07/09/17 19:36 Nasal Cannula 2.0 28 07/09/17 19:34 95 20 96 Nasal Cannula 2.0 28 07/09/17 16:08 98.4 99 22 140/75 96 07/09/17 15:24 138/81 07/09/17 15:09 112 20 99 Nasal Cannula 2.0 28 07/09/17 14:55 105 20 90 Nasal Cannula 2.0 28 Intake and Output 07/09/17 07/10/17 19:00 07:00 Intake Total 1535 ml 1740 ml Output Total 1500 ml 900 ml Balance 35 ml 840 ml Free Water 65 ml 180 ml IV Total 750 ml 900 ml Tube Feeding 720 ml 660 ml Output Urine Total 1500 ml 900 ml Objective General Appearance: no acute distress HEENT: normocephalic, atraumatic Respiratory/Chest: lungs clear, no respiratory distress, no accessory muscle use Cardiovascular: normal rate, no JVD, CL-femoral intact Abdomen: normal bowel sounds, soft, non tender Extremities: no edema Neurologic/Psychiatric: alert, responsive Musculoskeletal: normal muscle bulk Microbiology Date/Time Source Procedure Growth Status 07/09/17 19:00 Urine,Clean Catch Urine Culture - Preliminary NO GROWTH Resulted Laboratory Tests 07/09/17 19:00: Urine Color Red, Urine Appearance Very cloudy, Urine pH 7, Urine Specific [place] 1.005, Urine Protein 3+H, Urine Glucose (UA) 3+H, Urine Ketones Negative , Urine Occult Blood 5+H, Urine Nitrite Negative, Urine Bilirubin Negative, Urine Urobilinogen Normal, Urine Leukocyte Esterase 3+H, Urine RBC TntcH, Urine WBC TntcH, Urine Squamous Epithelial Cells None, Urine Bacteria Few 07/10/17 05:30: White Blood Count 10.0, Red Blood Count 3.09L, Hemoglobin 8.8L, Hematocrit 28.5L , Mean Corpuscular Volume 92, Mean Corpuscular Hemoglobin 28.6, Mean Corpuscular Hemoglobin Concent 30.9L, Red Cell Distribution Width 15.5H, Platelet Count 503H, Mean Platelet Volume 6.1L, Neutrophils (%) (Auto) 83.4H, Lymphocytes (%) (Auto) 9.7L, Monocytes (%) (Auto) 5.4, Eosinophils (%) (Auto) 0.9, Basophils (%) (Auto) 0.6, Sodium Level 146H, Potassium Level 4.7, Chloride Level 108H, Carbon Dioxide Level 31, Anion Gap 7, Blood Urea Nitrogen 56H, Creatinine 1.9H, Estimat Glomerular Filtration Rate 35.9, Glucose Level 338H, Calcium Level 8.9, Total Bilirubin 0.2, Aspartate Amino Transf (AST/SGOT) 24, Alanine Aminotransferase (ALT/SGPT) 31, Alkaline Phosphatase 98, Pro-B-Type Natriuretic Peptide 4710H, Total Protein 7.0, Albumin 1.7L, Globulin 5.3, Albumin/Globulin Ratio 0.3L Current Medications Medications (Trade) Dose Ordered Sig/Willem Route PRN Reason Start Time Stop Time Status Last Admin Dose Admin Acetaminophen (Tylenol) 500 mg Q6H PRN ORAL MILD PAIN (1-4). NTE 3GM/DAY 07/06/17 19:01 07/30/17 19:00 Acetaminophen (Tylenol) 650 mg DAILY PRN ORAL Temp > 100.5 07/06/17 19:01 08/05/17 19:00 Acetaminophen (Tylenol) 650 mg Q6H PRN ORAL MODERATE PAIN (5-7) 07/06/17 19:01 07/30/17 19:00 Acetylcysteine (Mucomyst) 100 mg Q4HRT HHN 07/09/17 11:00 08/07/17 18:59 07/10/17 11:48 Amlodipine Besylate (Norvasc) 10 mg DAILY GT 07/07/17 09:00 07/21/17 08:59 07/10/17 08:59 Aspirin (ASA) 81 mg DAILY ORAL 07/07/17 09:00 07/30/17 08:59 07/10/17 08:59 Bisacodyl (Dulcolax) 10 mg DAILYPRN PRN RECTAL constipationIF MOM INEFFECTIVE 07/06/17 21:00 07/26/17 20:59 Clonidine HCl (Catapres Tab) 0.1 mg Q4H PRN GT bp of 160 syst and above 07/06/17 19:14 07/21/17 19:13 Collagenase (Santyl) 1 applic DAILY TOPIC 07/07/17 09:00 07/29/17 08:59 07/10/17 08:59 Dextrose (Dextrose 50%) STAT PRN IV Hypoglycemia 07/06/17 21:00 07/26/17 20:59 Famotidine (Pepcid) 20 mg DAILY ORAL 07/07/17 09:00 07/22/17 08:59 07/10/17 08:59 Heparin Sodium (Porcine) (Heparin 5000 units/ml) 5,000 units EVERY 12 HOURS SUBQ 07/06/17 21:00 07/21/17 08:59 07/09/17 08:34 Hydralazine HCl (Apresoline) 25 mg Q8HR GT 07/06/17 22:00 07/21/17 17:59 07/10/17 05:53 Insulin Aspart (NovoLOG) EVERY 6 HOURS SUBQ 07/07/17 00:00 07/21/17 06:29 07/10/17 05:55 Insulin Detemir (Levemir) 15 units QHS SUBQ 07/06/17 21:00 08/03/17 20:59 07/09/17 21:04 Levalbuterol HCl (Xopenex) 1.25 mg Q4HRT HHN 07/10/17 07:00 07/15/17 06:59 07/10/17 11:48 Levothyroxine Sodium (Synthroid) 50 mcg ACBREAKFAST GT 07/07/17 06:30 07/21/17 06:29 07/10/17 05:54 Metoprolol Tartrate (Lopressor) 100 mg EVERY 12 HOURS GT 07/06/17 21:00 08/03/17 20:59 07/10/17 08:59 Nitroglycerin (Ntg) 0.4 mg Q5M PRN SL CHEST PAIN 07/06/17 18:45 07/21/17 20:59 Sodium Chloride 1,000 ml @ 75 mls/hr [id number] IV 07/06/17 19:00 08/03/17 18:59 07/10/17 05:22 JESSE ZAVALA Jul 10, 2017 13:28
[2017-07-10 16:01] VITALS: BP 143/77
--- NOTE | 2017-07-10 16:56 | Diagnostic Imaging Report ---
Indication: Abnormal renal function tests, abdominal pain Technique: Ulrich-scale and duplex images of the upper abdomen were obtained Comparison: Reference made to renal ultrasound dated 06/21/2017 Findings: Exam is very limited, as patient had a recent gastrostomy tube placement and bandages cover the mid abdomen. This results in significant obscuration of the midline structures. Gallbladder is obscured. Sonographic Bacon's sign cannot be assessed. Common bile duct measures for mm in diameter. No intrahepatic biliary ductal dilatation. Liver demonstrates normal echogenicity, no focal abnormality. Portal vein and hepatic veins are patent. Pancreas is obscured by bowel gas. The spleen cannot be visualized Left kidney measures 10.4 cm in length. Right kidney measures 10.7 cm length. Both kidneys demonstrate normal echogenicity. There is no hydronephrosis. No focal abnormality . Abdominal aorta is obscured by bowel gas . Impression: Very limited exam, as described. Note nonvisualization of the gallbladder, pancreas, abdominal aorta, and spleen Negative for dilated ducts
[2017-07-10 19:57] VITALS: BP 143/83
[2017-07-10] MEDS: Levemir Flexpen SUBQ SCH (20:38)
--- NOTE | 2017-07-10 23:32 | General Progress Note ---
Assessment/Plan Status: stable Assessment/Plan #. Anemia secondary to chronic disease. Anemia workup reviewed. --> Hemoglobin goal >7 --> Trend cbc daily. --> No transfusion needed today. Has been stable >8 #. Coagulopathy, malnutrition and vitamin K deficiency. --> administer vitamin K as needed. --> Goal INR between 2 and 3 #. Leukocytosis, likely secondary to underlying infection, sepsis, and antibiotics. --> has resolved, wbc count wnl --> S/P vancomycin. #. Thrombocytosis. #. Acute hypoxemia, requiring intubation. --> Currently extubated #. Acute kidney injury. #. Dysphagia with gastrostomy tube. #. Cerebrovascular accident with right-sided hemiplegia. #. Acute toxic metabolic encephalopathy. #. Hypothyroidism. Subjective Date patient seen: Jul 10, 2017 Constitutional: Denies: no symptoms, chills, diaphoresis, fever, malaise, weakness, other HEENT: Denies: no symptoms, eye pain, blurred vision, tearing, double vision, ear pain, ear discharge, nose pain, nose congestion, throat pain, throat swelling, mouth pain, mouth swelling, other Cardiovascular: Denies: no symptoms, chest pain, edema, irregular heart rate, lightheadedness, palpitations, syncope, other Respiratory: Denies: no symptoms, cough, orthopnea, shortness of breath, SOB with excertion, SOB at rest, sputum, stridor, wheezing, other Gastrointestinal/Abdominal: Denies: no symptoms, abdomen distended, abdominal pain, black stools, tarry stools, blood in stool, constipated, diarrhea, difficulty swallowing, nausea, poor appetite, poor fluid intake, rectal bleeding , vomiting, other Genitourinary: Denies: no symptoms, burning, discharge, frequency, flank pain, hematuria, incontinence, pain, urgency, other Allergies: Coded Allergies: No Known Allergies (Unverified , 05/11/17) Subjective NAD. Patient off biPAP. No fever. Objective Last 24 Hour Vital Signs Date Time Temp Pulse Resp B/P (MAP) Pulse Ox O2 Delivery O2 Flow Rate FiO2 07/10/17 22:34 98 20 98 Nasal Cannula 2.0 28 07/10/17 20:37 106 143/83 07/10/17 20:37 143/83 07/10/17 20:11 97 Nasal Cannula 2.0 07/10/17 19:57 97.9 106 20 143/83 97 07/10/17 19:52 101 20 99 Nasal Cannula 2.0 28 07/10/17 19:44 109 20 98 Nasal Cannula 2.0 28 07/10/17 19:44 Nasal Cannula 2.0 28 07/10/17 19:44 98 Nasal Cannula 2.0 28 07/10/17 16:01 98.4 97 22 143/77 97 07/10/17 15:57 105 20 100 Nasal Cannula 2.0 28 07/10/17 15:48 100 20 98 Nasal Cannula 2.0 28 07/10/17 14:58 150/76 07/10/17 11:50 108 20 100 Nasal Cannula 2.0 28 07/10/17 11:43 98.2 89 22 150/76 98 07/10/17 11:40 103 20 98 Nasal Cannula 2.0 28 07/10/17 08:59 108 151/84 07/10/17 08:59 108 151/84 07/10/17 08:30 97.9 108 22 151/84 97 07/10/17 07:46 112 20 100 Nasal Cannula 2.0 28 07/10/17 07:46 Nasal Cannula 2.0 28 07/10/17 07:33 107 20 98 Nasal Cannula 2.0 28 07/10/17 07:30 96 Nasal Cannula 2.0 28 07/10/17 05:53 146/71 07/10/17 04:35 98.0 100 22 146/71 95 07/10/17 04:35 95 Nasal Cannula 2.0 07/10/17 03:20 Nasal Cannula 07/10/17 03:18 Nasal Cannula 07/10/17 00:00 95 Nasal Cannula 2.0 07/09/17 23:55 98.1 95 22 155/79 95 Intake and Output 07/09/17 07/10/17 19:00 07:00 Intake Total 1535 ml 1740 ml Output Total 1500 ml 900 ml Balance 35 ml 840 ml Free Water 65 ml 180 ml IV Total 750 ml 900 ml Tube Feeding 720 ml 660 ml Output Urine Total 1500 ml 900 ml Laboratory Tests 07/10/17 05:30: White Blood Count 10.0, Red Blood Count 3.09L, Hemoglobin 8.8L, Hematocrit 28.5L , Mean Corpuscular Volume 92, Mean Corpuscular Hemoglobin 28.6, Mean Corpuscular Hemoglobin Concent 30.9L, Red Cell Distribution Width 15.5H, Platelet Count 503H, Mean Platelet Volume 6.1L, Neutrophils (%) (Auto) 83.4H, Lymphocytes (%) (Auto) 9.7L, Monocytes (%) (Auto) 5.4, Eosinophils (%) (Auto) 0.9, Basophils (%) (Auto) 0.6, Sodium Level 146H, Potassium Level 4.7, Chloride Level 108H, Carbon Dioxide Level 31, Anion Gap 7, Blood Urea Nitrogen 56H, Creatinine 1.9H, Estimat Glomerular Filtration Rate 35.9, Glucose Level 338H, Calcium Level 8.9, Total Bilirubin 0.2, Aspartate Amino Transf (AST/SGOT) 24, Alanine Aminotransferase (ALT/SGPT) 31, Alkaline Phosphatase 98, Pro-B-Type Natriuretic Peptide 4710H, Total Protein 7.0, Albumin 1.7L, Globulin 5.3, Albumin/Globulin Ratio 0.3L Height (Feet): 5 Height (Inches): 9.00 Weight (Pounds): 191 General Appearance: no apparent distress, confused Respiratory/Chest: decreased breath sounds Dejan Copeland Jul 10, 2017 23:32
[2017-07-11] VITALS: BP 141/76
[2017-07-11] MEDS: Levalbuterol Inh UD 1.25mg/0.5ml HHN SCH ×6 (03:50→22:32)
[2017-07-11 04:00] VITALS: BP 145/85
[2017-07-11] MEDS: HydrALAZINE 25mg tab GT SCH ×3 (05:36→21:40)
[2017-07-11] MEDS: NovoLOG Insulin Flexpen SUBQ SCH ×3 (05:37→18:00)
--- NOTE | 2017-07-11 06:30 | Progress Note ---
DATE: 07/10/2017 NOTE: POOR AUDIO SUBJECTIVE: The patient is awake, alert, afebrile, and hemodynamically stable, though his eye contact and facial expression was not very well expressed. PHYSICAL EXAMINATION: VITAL SIGNS: Blood pressure 143/83, pulse is 106, respirations of 20, and temperature 97.9. HEENT: Eyes were normal. ENT, mucous membranes were moist and intact. NECK: Supple with no JVD without lymph nodes. LUNGS: Clear. HEART: Normal sounds with regular beats. ABDOMEN: Gastrostomy site is clean. EXTREMITIES: Warm without cyanosis, clubbing, or edema. LABORATORY AND DIAGNOSTIC DATA: ultrasound was normal with regard to pancreas, abdominal aorta is clean. Chest x-ray revealed no active disease, unchanged. Hemoglobin is 8.8, hematocrit 28.5 with MCV of 92, WBC of 10.0, and platelets 503. Sodium is , potassium 4.7, chloride 108, and CO2 is 31. His bilirubin is between 270 to 330. His BUN and creatinine are 56 and 1.9, respectively. It was 47 and 1.8 yesterday. His ProBNP was . His albumin is 1.7. Total protein IMPRESSION AND PLAN: The patient abdominal ultrasound did not reveal any pathology. Repeat laboratory tests will be done in the morning. His urine today with too numerous to count RBC and WBCs. . Urology sap basis consultant was called to assist in the management of this case. Martina Morales M.D. DR: Serafin JOB#: [id number] CC:
[2017-07-11 08:00] VITALS: BP 139/89
[2017-07-11 08:01] LABS: HEMATOCRIT 28.9 % (42.0-52.0); MEAN CORPUSCULAR VOLUME 92 FL (80-99); PLATELET COUNT 527 K/UL (150-450); RED BLOOD COUNT 3.14 M/UL (4.70-6.10); RED CELL DISTRIBUTION WIDTH 15.3 % (11.6-14.8); WHITE BLOOD COUNT 11.1 K/UL (4.8-10.8)
[2017-07-11 08:20] LABS: ANION GAP 9 mmol/L (5-15); BLOOD UREA NITROGEN 55 mg/dL (7-18); CALCIUM 9.3 MG/DL (8.5-10.1); CARBON DIOXIDE 30 MMOL/L (21-32); CHLORIDE 109 MMOL/L (98-107); CREATININE 1.7 MG/DL (0.55-1.30); SODIUM 148 MMOL/L (136-145)
[2017-07-11] MEDS: Aspirin Baby 81mg ORAL SCH (09:47)
[2017-07-11] MEDS: Heparin 5000 units/ml inj SUBQ SCH ×2 (09:48→21:00)
--- NOTE | 2017-07-11 11:36 | Infectious Diseases Prog Note ---
Assessment/Plan Assessment/Plan A: Fever-low grade, SP ( improved after adding Amikacin ) PSA Pneumonia Sepsis 2ry to HCAP, improving CXR 06/26: Probable mild CHF. Please correlate clinically -CXR 06/22: Lungs and pleural spaces are clear -CXR: There is infiltrate in the left infrahilar region. There is some atelectasis at the right lung base. There is also retrocardiac consolidation -sp cx: +3 MDR PSA (S. Cefepime, Gentamicin/Amikacin) -u./a WBC 5-10, nit neg, leuk est +1, ucx 10-20K C. albicans (colonzier) -rectal wound cx: ESBL E.coli, PsA (colonizers)- no signs of infection 07/22 CoNS bacteremia- suspect contaminant 06/20 +07/22, 06/21 Neg x4 leukocytosis-resolved Lactic acidosis- resolved Cdiff neg 06/25 -Neg: HIV ag/ab, RPR, CrAg serum, FTA-ab Acute hypoxic resp failure s/p intubation 06/20- s/p extubation 06/25 BOOGIE, improving Recent gastritis (dx by EGD) Hx of encephalopathy -05/22 CT head: No evidence of acute intracranial hemorrhage, mass effect or cortical edema. MRI may be obtained for more sensitive evaluation as clinically indicated. Stable chronic infarct in the right frontal lobe. Cerebral and cerebellar atrophy greater than expected for age. Clinical correlation recommended. Mild periventricular hypoattenuation suggestive of chronic ischemic microvascular changes. -previous admission:nical correlation recommended. Mild periventricular hypoattenuation suggestive of chronic ischemic microvascular changes. Small area of right frontal encephalomalacia suggestive of old infarct. -UDS neg -TSH normal -Brain MRI: Chronic and age-related changes. Old right frontal infarct. 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 Plan: - Monitor pt off of Ab Rx - 07/09 SP Cefepime d# 17 /17 , and Amikacin d# 7/ 7 -06/25 SP IV vancomycin #5, Amikacin #5 -1/6 SP Meropenem #3 -1/4 SP Amikacin x1 - UC x: P -Monitor CBC/BMP, temperatures -aspiration precautions - wound care Subjective Allergies: Coded Allergies: No Known Allergies (Unverified , 05/11/17) Subjective comfortable Afebrile Objective Vital Signs Last 24 Hour Vital Signs Date Time Temp Pulse Resp B/P (MAP) Pulse Ox O2 Delivery O2 Flow Rate FiO2 07/11/17 11:10 96 20 100 Nasal Cannula 2.0 28 07/11/17 11:00 97 20 97 Nasal Cannula 2.0 28 07/11/17 09:47 109 145/85 07/11/17 09:47 109 145/85 07/11/17 08:00 97.9 109 23 139/89 100 07/11/17 07:20 101 20 100 Nasal Cannula 2.0 07/11/17 07:14 Nasal Cannula 2.0 28 07/11/17 07:08 99 20 96 Nasal Cannula 2.0 07/11/17 07:08 96 Nasal Cannula 2.0 07/11/17 05:36 145/85 07/11/17 04:00 92 20 99 Nasal Cannula 2.0 28 07/11/17 04:00 98.8 105 18 145/85 99 07/11/17 03:51 101 20 98 Nasal Cannula 2.0 07/11/17 00:00 98.1 94 18 141/76 96 07/11/17 00:00 96 Nasal Cannula 2.0 07/10/17 22:44 98 20 99 Nasal Cannula 2.0 07/10/17 22:34 98 20 98 Nasal Cannula 2.0 07/10/17 20:37 106 143/83 07/10/17 20:37 143/83 07/10/17 20:11 97 Nasal Cannula 2.0 07/10/17 19:57 97.9 106 20 143/83 97 07/10/17 19:52 101 20 99 Nasal Cannula 2.0 28 07/10/17 19:44 109 20 98 Nasal Cannula 2.0 28 07/10/17 19:44 Nasal Cannula 2.0 28 07/10/17 19:44 98 Nasal Cannula 2.0 07/10/17 16:01 98.4 97 22 143/77 97 07/10/17 15:57 105 20 100 Nasal Cannula 2.0 28 07/10/17 15:48 100 20 98 Nasal Cannula 2.0 28 07/10/17 14:58 150/76 07/10/17 11:50 108 20 100 Nasal Cannula 2.0 28 07/10/17 11:43 98.2 89 22 150/76 98 07/10/17 11:40 103 20 98 Nasal Cannula 2.0 28 Height (Feet): 5 Height (Inches): 9.00 Weight (Pounds): 201 HEENT: anicteric Respiratory/Chest: no respiratory distress Cardiovascular: regular rhythm Abdomen: no organomegaly Microbiology Date/Time Source Procedure Growth Status 07/09/17 19:00 Urine,Clean Catch Urine Culture - Preliminary NO GROWTH AFTER 24 HOURS Resulted Laboratory Tests Test 07/11/17 05:15 White Blood Count 11.1 K/UL (4.8-10.8) H Red Blood Count 3.14 M/UL (4.70-6.10) L Hemoglobin 9.0 G/DL (14.2-18.0) L Hematocrit 28.9 % (42.0-52.0) L Mean Corpuscular Volume 92 FL (80-99) Mean Corpuscular Hemoglobin 28.7 PG (27.0-31.0) Mean Corpuscular Hemoglobin Concent 31.3 G/DL (32.0-36.0) L Red Cell Distribution Width 15.3 % (11.6-14.8) H Platelet Count 527 K/UL (150-450) H Mean Platelet Volume 6.3 FL (6.5-10.1) L Neutrophils (%) (Auto) % (45.0-75.0) Lymphocytes (%) (Auto) % (20.0-45.0) Monocytes (%) (Auto) % (1.0-10.0) Eosinophils (%) (Auto) % (0.0-3.0) Basophils (%) (Auto) % (0.0-2.0) Differential Total Cells Counted 100 Neutrophils % (Manual) 85 % (45-75) H Lymphocytes % (Manual) 9 % (20-45) L Monocytes % (Manual) 4 % (1-10) Eosinophils % (Manual) 1 % (0-3) Basophils % (Manual) 0 % (0-2) Band Neutrophils 1 % (0-8) Platelet Estimate Increased H Platelet Morphology Normal Hypochromasia 1+ Anisocytosis 1+ Sodium Level 148 MMOL/L (136-145) H Potassium Level 4.0 MMOL/L (3.5-5.1) Chloride Level 109 MMOL/L (98-107) H Carbon Dioxide Level 30 MMOL/L (21-32) Anion Gap 9 mmol/L (5-15) Blood Urea Nitrogen 55 mg/dL (7-18) H Creatinine 1.7 MG/DL (0.55-1.30) H Estimat Glomerular Filtration Rate 40.8 mL/min (>60) Glucose Level 180 MG/DL (74-106) #H Calcium Level 9.3 MG/DL (8.5-10.1) Current Medications Medications (Trade) Dose Ordered Sig/Willem Route PRN Reason Start Time Stop Time Status Last Admin Dose Admin Acetaminophen (Tylenol) 500 mg Q6H PRN ORAL MILD PAIN (1-4). NTE 3GM/DAY 07/06/17 19:01 07/30/17 19:00 Acetaminophen (Tylenol) 650 mg DAILY PRN ORAL Temp > 100.5 07/06/17 19:01 08/05/17 19:00 Acetaminophen (Tylenol) 650 mg Q6H PRN ORAL MODERATE PAIN (5-7) 07/06/17 19:01 07/30/17 19:00 Acetylcysteine (Mucomyst) 100 mg Q4HRT HHN 07/09/17 11:00 08/07/17 18:59 07/11/17 11:03 Amlodipine Besylate (Norvasc) 10 mg DAILY GT 07/07/17 09:00 07/21/17 08:59 07/11/17 09:47 Aspirin (ASA) 81 mg DAILY ORAL 07/07/17 09:00 07/30/17 08:59 07/11/17 09:47 Bisacodyl (Dulcolax) 10 mg DAILYPRN PRN RECTAL constipationIF MOM INEFFECTIVE 07/06/17 21:00 07/26/17 20:59 Clonidine HCl (Catapres Tab) 0.1 mg Q4H PRN GT bp of 160 syst and above 07/06/17 19:14 2 19:13 Collagenase (Santyl) 1 applic DAILY TOPIC 07/07/17 09:00 07/29/17 08:59 07/11/17 09:48 Dextrose (Dextrose 50%) STAT PRN IV Hypoglycemia 07/06/17 21:00 07/26/17 20:59 Famotidine (Pepcid) 20 mg DAILY ORAL 07/07/17 09:00 07/22/17 08:59 07/11/17 09:47 Heparin Sodium (Porcine) (Heparin 5000 units/ml) 5,000 units EVERY 12 HOURS SUBQ 07/06/17 21:00 07/21/17 08:59 07/09/17 08:34 Hydralazine HCl (Apresoline) 25 mg Q8HR GT 07/06/17 22:00 07/21/17 17:59 07/11/17 05:36 Insulin Aspart (NovoLOG) EVERY 6 HOURS SUBQ 07/07/17 00:00 07/21/17 06:29 07/11/17 05:37 Insulin Detemir (Levemir) 15 units QHS SUBQ 07/06/17 21:00 08/03/17 20:59 07/10/17 20:38 Levalbuterol HCl (Xopenex) 1.25 mg Q4HRT HHN 07/10/17 07:00 07/15/17 06:59 07/11/17 11:03 Levothyroxine Sodium (Synthroid) 50 mcg ACBREAKFAST GT 07/07/17 06:30 07/21/17 06:29 07/11/17 05:35 Metoprolol Tartrate (Lopressor) 100 mg EVERY 12 HOURS GT 07/06/17 21:00 08/03/17 20:59 07/11/17 09:47 Nitroglycerin (Ntg) 0.4 mg Q5M PRN SL CHEST PAIN 07/06/17 18:45 07/21/17 20:59 Sodium Chloride 1,000 ml @ 75 mls/hr [id number] IV 07/06/17 19:00 08/03/17 18:59 07/11/17 05:35 REJI HOANG M.D. Jul 11, 2017 11:36
[2017-07-11 12:00] VITALS: BP 143/68
--- NOTE | 2017-07-11 14:16 | Nephrology Progress Note ---
Assessment/Plan Problem List: (1) Acute renal failure (2) Respiratory failure requiring intubation (3) Urosepsis (4) Anemia Assessment: worsening (5) Hypoalbuminemia Assessment BOOGIE (acute kidney injury), Cr 1.7 today , lower H&H lower Respiratory failure requiring intubation Respiratory failure with hypoxia Aspiration pneumonia, Urosepsis Anemia ACS (acute coronary syndrome), Non St Elevation IA CHF (congestive heart failure) Acute encephalopathy GT feeding LLL atelectesis worsening, Plan plan: Resp support will need tracheostomy to prevent worsening atelectaisis transfused avoid Nephrotoxics monitor renal parameters Keep BP and BS in check Optimize pulmonary and cardiac support DC planning Subjective ROS Limited/Unobtainable: No Constitutional: Reports: malaise Objective Objective Last 24 Hour Vital Signs Date Time Temp Pulse Resp B/P (MAP) Pulse Ox O2 Delivery O2 Flow Rate FiO2 07/11/17 12:00 97.9 85 22 143/68 96 07/11/17 11:10 96 20 100 Nasal Cannula 2.0 28 07/11/17 11:00 97 20 97 Nasal Cannula 2.0 28 07/11/17 09:47 109 145/85 07/11/17 09:47 109 145/85 07/11/17 08:00 97.9 109 23 139/89 100 07/11/17 07:20 101 20 100 Nasal Cannula 2.0 28 07/11/17 07:14 Nasal Cannula 2.0 28 07/11/17 07:08 99 20 96 Nasal Cannula 2.0 28 07/11/17 07:08 96 Nasal Cannula 2.0 28 07/11/17 05:36 145/85 07/11/17 04:00 92 20 99 Nasal Cannula 2.0 28 07/11/17 04:00 98.8 105 18 145/85 99 07/11/17 03:51 101 20 98 Nasal Cannula 2.0 28 07/11/17 00:00 98.1 94 18 141/76 96 07/11/17 00:00 96 Nasal Cannula 2.0 07/10/17 22:44 98 20 99 Nasal Cannula 2.0 28 07/10/17 22:34 98 20 98 Nasal Cannula 2.0 28 07/10/17 20:37 106 143/83 07/10/17 20:37 143/83 07/10/17 20:11 97 Nasal Cannula 2.0 07/10/17 19:57 97.9 106 20 143/83 97 07/10/17 19:52 101 20 99 Nasal Cannula 2.0 28 07/10/17 19:44 109 20 98 Nasal Cannula 2.0 28 07/10/17 19:44 Nasal Cannula 2.0 28 07/10/17 19:44 98 Nasal Cannula 2.0 28 07/10/17 16:01 98.4 97 22 143/77 97 07/10/17 15:57 105 20 100 Nasal Cannula 2.0 28 07/10/17 15:48 100 20 98 Nasal Cannula 2.0 28 07/10/17 14:58 150/76 Intake and Output 07/10/17 07/11/17 19:00 07:00 Intake Total 1270 ml 1680 ml Output Total 1000 ml 1300 ml Balance 270 ml 380 ml Free Water 100 ml 120 ml IV Total 750 ml 900 ml Tube Feeding 420 ml 660 ml Output Urine Total 1000 ml 1300 ml # Bowel Movements 1 2 Laboratory Tests 07/11/17 05:15: White Blood Count 11.1H, Red Blood Count 3.14L, Hemoglobin 9.0L, Hematocrit 28.9L, Mean Corpuscular Volume 92, Mean Corpuscular Hemoglobin 28.7, Mean Corpuscular Hemoglobin Concent 31.3L, Red Cell Distribution Width 15.3H, Platelet Count 527H, Mean Platelet Volume 6.3L, Neutrophils (%) (Auto) , Lymphocytes (%) (Auto) , Monocytes (%) (Auto) , Eosinophils (%) (Auto) , Basophils (%) (Auto) , Differential Total Cells Counted 100, Neutrophils % ( Manual) 85H, Lymphocytes % (Manual) 9L, Monocytes % (Manual) 4, Eosinophils % ( Manual) 1, Basophils % (Manual) 0, Band Neutrophils 1, Platelet Estimate IncreasedH, Platelet Morphology Normal, Hypochromasia 1+, Anisocytosis 1+, Sodium Level 148H, Potassium Level 4.0, Chloride Level 109H, Carbon Dioxide Level 30, Anion Gap 9, Blood Urea Nitrogen 55H, Creatinine 1.7H, Estimat Glomerular Filtration Rate 40.8, Glucose Level 180#H, Calcium Level 9.3 Height (Feet): 5 Height (Inches): 9.00 Weight (Pounds): 201 General Appearance: no apparent distress Cardiovascular: tachycardia Respiratory/Chest: decreased breath sounds Abdomen: soft, distended Objective no other changes GARCÍA READ Jul 11, 2017 14:16
[2017-07-11 16:00] VITALS: BP 136/62
[2017-07-11] MEDS ORDERED: 1/2 NS 1000ml IV ONE (17:17)
--- NOTE | 2017-07-11 18:38 | Pulmonology Progress Note ---
Assessment/Plan Problems: (1) Acute renal failure (2) Aspiration pneumonia (3) Feeding by G-tube (4) History of CVA (cerebrovascular accident) (5) BOOGIE (acute kidney injury) Assessment/Plan cxr better 07/10 continue IV fluids off abx off bipap now renal failure improving watch bun/creatinine check eclectrolytes OB + in urine , +wbc in urine all noted and reviewed Subjective ROS Limited/Unobtainable: No Constitutional: Reports: no symptoms HEENT: Repors: no symptoms Respiratory: Reports: no symptoms Allergies: Coded Allergies: No Known Allergies (Unverified , 05/11/17) Objective Last 24 Hour Vital Signs Date Time Temp Pulse Resp B/P (MAP) Pulse Ox O2 Delivery O2 Flow Rate FiO2 07/11/17 16:00 97.9 100 22 136/62 97 07/11/17 15:33 98 20 100 Nasal Cannula 2.0 28 07/11/17 15:22 96 20 98 Nasal Cannula 2.0 28 07/11/17 14:37 143/68 07/11/17 12:00 97.9 85 22 143/68 96 07/11/17 11:10 96 20 100 Nasal Cannula 2.0 28 07/11/17 11:00 97 20 97 Nasal Cannula 2.0 28 07/11/17 09:47 109 145/85 07/11/17 09:47 109 145/85 07/11/17 08:00 97.9 109 23 139/89 100 07/11/17 07:20 101 20 100 Nasal Cannula 2.0 28 07/11/17 07:14 Nasal Cannula 2.0 28 07/11/17 07:08 99 20 96 Nasal Cannula 2.0 28 07/11/17 07:08 96 Nasal Cannula 2.0 28 07/11/17 05:36 145/85 07/11/17 04:00 92 20 99 Nasal Cannula 2.0 28 07/11/17 04:00 98.8 105 18 145/85 99 07/11/17 03:51 101 20 98 Nasal Cannula 2.0 28 07/11/17 00:00 98.1 94 18 141/76 96 07/11/17 00:00 96 Nasal Cannula 2.0 07/10/17 22:44 98 20 99 Nasal Cannula 2.0 28 07/10/17 22:34 98 20 98 Nasal Cannula 2.0 28 07/10/17 20:37 106 143/83 07/10/17 20:37 143/83 07/10/17 20:11 97 Nasal Cannula 2.0 07/10/17 19:57 97.9 106 20 143/83 97 07/10/17 19:52 101 20 99 Nasal Cannula 2.0 28 07/10/17 19:44 109 20 98 Nasal Cannula 2.0 28 07/10/17 19:44 Nasal Cannula 2.0 28 07/10/17 19:44 98 Nasal Cannula 2.0 28 Intake and Output 07/10/17 07/11/17 19:00 07:00 Intake Total 1270 ml 1680 ml Output Total 1000 ml 1300 ml Balance 270 ml 380 ml Free Water 100 ml 120 ml IV Total 750 ml 900 ml Tube Feeding 420 ml 660 ml Output Urine Total 1000 ml 1300 ml # Bowel Movements 1 2 Objective General Appearance: no acute distress HEENT: normocephalic, atraumatic Respiratory/Chest: lungs clear, no respiratory distress, no accessory muscle use Cardiovascular: normal rate, no JVD, CL-femoral intact Abdomen: normal bowel sounds, soft, non tender Extremities: no edema Neurologic/Psychiatric: alert, responsive Musculoskeletal: normal muscle bulk Microbiology Date/Time Source Procedure Growth Status 07/09/17 19:00 Urine,Clean Catch Urine Culture - Preliminary NO GROWTH AFTER 24 HOURS Resulted Laboratory Tests 07/11/17 05:15: White Blood Count 11.1H, Red Blood Count 3.14L, Hemoglobin 9.0L, Hematocrit 28.9L, Mean Corpuscular Volume 92, Mean Corpuscular Hemoglobin 28.7, Mean Corpuscular Hemoglobin Concent 31.3L, Red Cell Distribution Width 15.3H, Platelet Count 527H, Mean Platelet Volume 6.3L, Neutrophils (%) (Auto) , Lymphocytes (%) (Auto) , Monocytes (%) (Auto) , Eosinophils (%) (Auto) , Basophils (%) (Auto) , Differential Total Cells Counted 100, Neutrophils % ( Manual) 85H, Lymphocytes % (Manual) 9L, Monocytes % (Manual) 4, Eosinophils % ( Manual) 1, Basophils % (Manual) 0, Band Neutrophils 1, Platelet Estimate IncreasedH, Platelet Morphology Normal, Hypochromasia 1+, Anisocytosis 1+, Sodium Level 148H, Potassium Level 4.0, Chloride Level 109H, Carbon Dioxide Level 30, Anion Gap 9, Blood Urea Nitrogen 55H, Creatinine 1.7H, Estimat Glomerular Filtration Rate 40.8, Glucose Level 180#H, Calcium Level 9.3 Current Medications Medications (Trade) Dose Ordered Sig/Willem Route PRN Reason Start Time Stop Time Status Last Admin Dose Admin Acetaminophen (Tylenol) 500 mg Q6H PRN ORAL MILD PAIN (1-4). NTE 3GM/DAY 07/06/17 19:01 07/30/17 19:00 Acetaminophen (Tylenol) 650 mg DAILY PRN ORAL Temp > 100.5 07/06/17 19:01 08/05/17 19:00 Acetaminophen (Tylenol) 650 mg Q6H PRN ORAL MODERATE PAIN (5-7) 07/06/17 19:01 07/30/17 19:00 Acetylcysteine (Mucomyst) 100 mg Q4HRT HHN 07/09/17 11:00 08/07/17 18:59 07/11/17 15:25 Amlodipine Besylate (Norvasc) 10 mg DAILY GT 07/07/17 09:00 07/21/17 08:59 07/11/17 09:47 Aspirin (ASA) 81 mg DAILY ORAL 07/07/17 09:00 07/30/17 08:59 07/11/17 09:47 Bisacodyl (Dulcolax) 10 mg DAILYPRN PRN RECTAL constipationIF MOM INEFFECTIVE 07/06/17 21:00 07/26/17 20:59 Clonidine HCl (Catapres Tab) 0.1 mg Q4H PRN GT bp of 160 syst and above 07/06/17 19:14 07/21/17 19:13 Collagenase (Santyl) 1 applic DAILY TOPIC 07/07/17 09:00 07/29/17 08:59 07/11/17 09:48 Dextrose (Dextrose 50%) STAT PRN IV Hypoglycemia 07/06/17 21:00 07/26/17 20:59 Famotidine (Pepcid) 20 mg DAILY ORAL 07/07/17 09:00 07/22/17 08:59 07/11/17 09:47 Heparin Sodium (Porcine) (Heparin 5000 units/ml) 5,000 units EVERY 12 HOURS SUBQ 07/06/17 21:00 07/21/17 08:59 07/09/17 08:34 Hydralazine HCl (Apresoline) 25 mg Q8HR GT 07/06/17 22:00 07/21/17 17:59 07/11/17 14:37 Insulin Aspart (NovoLOG) EVERY 6 HOURS SUBQ 07/07/17 00:00 07/21/17 06:29 07/11/17 18:00 Insulin Detemir (Levemir) 15 units QHS SUBQ 07/06/17 21:00 08/03/17 20:59 07/10/17 20:38 Levalbuterol HCl (Xopenex) 1.25 mg Q4HRT HHN 07/10/17 07:00 07/15/17 06:59 07/11/17 15:22 Levothyroxine Sodium (Synthroid) 50 mcg ACBREAKFAST GT 07/07/17 06:30 07/21/17 06:29 07/11/17 05:35 Metoprolol Tartrate (Lopressor) 100 mg EVERY 12 HOURS GT 07/06/17 21:00 08/03/17 20:59 07/11/17 09:47 Nitroglycerin (Ntg) 0.4 mg Q5M PRN SL CHEST PAIN 07/06/17 18:45 07/21/17 20:59 Sodium Chloride 1,000 ml @ 75 mls/hr [id number] IV 07/06/17 19:00 08/03/17 18:59 07/11/17 05:35 JESSE ZAVALA Jul 11, 2017 18:38
[2017-07-11 20:00] VITALS: BP 144/82
[2017-07-11] MEDS: Levemir Flexpen SUBQ SCH (21:42)
--- NOTE | 2017-07-11 23:34 | General Progress Note ---
Assessment/Plan Status: unchanged Assessment/Plan #. Anemia secondary to chronic disease. Anemia workup reviewed. --> Hemoglobin goal >7 --> Trend cbc daily. --> No transfusion needed today. Has been stable >8 #. Coagulopathy, malnutrition and vitamin K deficiency. --> administer vitamin K as needed. --> Goal INR between 2 and 3 --> Trend levels daily. #. Leukocytosis, likely secondary to underlying infection, sepsis, and antibiotics. --> has resolved, wbc count wnl --> S/P vancomycin. #. Thrombocytosis. #. Acute hypoxemia, requiring intubation. --> Currently extubated #. Acute kidney injury. #. Dysphagia with gastrostomy tube. #. Cerebrovascular accident with right-sided hemiplegia. #. Acute toxic metabolic encephalopathy. #. Hypothyroidism. Subjective Date patient seen: Jul 11, 2017 Constitutional: Denies: no symptoms, chills, diaphoresis, fever, malaise, weakness, other HEENT: Denies: no symptoms, eye pain, blurred vision, tearing, double vision, ear pain, ear discharge, nose pain, nose congestion, throat pain, throat swelling, mouth pain, mouth swelling, other Cardiovascular: Denies: no symptoms, chest pain, edema, irregular heart rate, lightheadedness, palpitations, syncope, other Respiratory: Denies: no symptoms, cough, orthopnea, shortness of breath, SOB with excertion, SOB at rest, sputum, stridor, wheezing, other Gastrointestinal/Abdominal: Denies: no symptoms, abdomen distended, abdominal pain, black stools, tarry stools, blood in stool, constipated, diarrhea, difficulty swallowing, nausea, poor appetite, poor fluid intake, rectal bleeding , vomiting, other Allergies: Coded Allergies: No Known Allergies (Unverified , 05/11/17) Subjective Ongoing tube feedings. No fever or chills. Objective Last 24 Hour Vital Signs Date Time Temp Pulse Resp B/P (MAP) Pulse Ox O2 Delivery O2 Flow Rate FiO2 07/11/17 22:50 99.4 07/11/17 22:50 89 24 98 Venturi Mask 10.0 45 07/11/17 22:34 86 24 88 Nasal Cannula 2.0 28 07/11/17 21:40 100 144/82 07/11/17 21:40 144/82 07/11/17 20:02 93 Nasal Cannula 2.0 28 07/11/17 20:02 Nasal Cannula 2.0 28 07/11/17 20:00 100.0 100 20 144/82 96 07/11/17 19:59 76 20 97 Nasal Cannula 2.0 28 07/11/17 19:50 89 24 91 Nasal Cannula 2.0 28 07/11/17 16:00 97.9 100 22 136/62 97 07/11/17 15:33 98 20 100 Nasal Cannula 2.0 28 07/11/17 15:22 96 20 98 Nasal Cannula 2.0 28 07/11/17 14:37 143/68 07/11/17 12:00 97.9 85 22 143/68 96 07/11/17 11:10 96 20 100 Nasal Cannula 2.0 28 07/11/17 11:00 97 20 97 Nasal Cannula 2.0 28 07/11/17 09:47 109 145/85 07/11/17 09:47 109 145/85 07/11/17 08:00 97.9 109 23 139/89 100 07/11/17 07:20 101 20 100 Nasal Cannula 2.0 28 07/11/17 07:14 Nasal Cannula 2.0 28 07/11/17 07:08 99 20 96 Nasal Cannula 2.0 28 07/11/17 07:08 96 Nasal Cannula 2.0 28 07/11/17 05:36 145/85 07/11/17 04:00 92 20 99 Nasal Cannula 2.0 28 07/11/17 04:00 98.8 105 18 145/85 99 07/11/17 03:51 101 20 98 Nasal Cannula 2.0 28 07/11/17 00:00 98.1 94 18 141/76 96 07/11/17 00:00 96 Nasal Cannula 2.0 Intake and Output 07/10/17 07/11/17 19:00 07:00 Intake Total 1270 ml 1680 ml Output Total 1000 ml 1300 ml Balance 270 ml 380 ml Free Water 100 ml 120 ml IV Total 750 ml 900 ml Tube Feeding 420 ml 660 ml Output Urine Total 1000 ml 1300 ml # Bowel Movements 1 2 Laboratory Tests 07/11/17 05:15: White Blood Count 11.1H, Red Blood Count 3.14L, Hemoglobin 9.0L, Hematocrit 28.9L, Mean Corpuscular Volume 92, Mean Corpuscular Hemoglobin 28.7, Mean Corpuscular Hemoglobin Concent 31.3L, Red Cell Distribution Width 15.3H, Platelet Count 527H, Mean Platelet Volume 6.3L, Neutrophils (%) (Auto) , Lymphocytes (%) (Auto) , Monocytes (%) (Auto) , Eosinophils (%) (Auto) , Basophils (%) (Auto) , Differential Total Cells Counted 100, Neutrophils % ( Manual) 85H, Lymphocytes % (Manual) 9L, Monocytes % (Manual) 4, Eosinophils % ( Manual) 1, Basophils % (Manual) 0, Band Neutrophils 1, Platelet Estimate IncreasedH, Platelet Morphology Normal, Hypochromasia 1+, Anisocytosis 1+, Sodium Level 148H, Potassium Level 4.0, Chloride Level 109H, Carbon Dioxide Level 30, Anion Gap 9, Blood Urea Nitrogen 55H, Creatinine 1.7H, Estimat Glomerular Filtration Rate 40.8, Glucose Level 180#H, Calcium Level 9.3 07/11/17 21:59: Arterial Blood pH 7.473H, Arterial Blood Partial Pressure CO2 42.3, Arterial Blood Partial Pressure O2 46.2*L, Arterial Blood HCO3 30.3H, Arterial Blood Oxygen Saturation 84.7L, Arterial Blood Base Excess 6.1, Hkang Test Positive Height (Feet): 5 Height (Inches): 9.00 Weight (Pounds): 201 General Appearance: no apparent distress Respiratory/Chest: decreased breath sounds Abdomen: non tender, soft Dejan Copeland Jul 11, 2017 23:34
[2017-07-12] VITALS: BP 133/81
[2017-07-12] MEDS: NovoLOG Insulin Flexpen SUBQ SCH ×5 (00:13→23:24)
[2017-07-12] MEDS: Levalbuterol Inh UD 1.25mg/0.5ml HHN SCH ×6 (02:53→23:21)
[2017-07-12 04:00] VITALS: BP 146/74
--- NOTE | 2017-07-12 04:18 | Progress Note ---
DATE: 07/11/2017 SUBJECTIVE: The patient's condition deteriorated. OBJECTIVE: VITAL SIGNS: He is now breathing at a rate of 25 to 30. His blood pressure is 144/82, pulse is 108, and temperature was 100. HEENT: Eyes were normal. ENT, mucous membranes were moist and intact. NECK: Supple with no JVD without lymph nodes. LUNGS: rhonchi. HEART: Normal sounds with regular heart beats. There is tachycardia at rest. ABDOMEN: Soft and nontender with normal bowel sounds. Gastrostomy site is clean. EXTREMITIES: Warm without cyanosis, clubbing, or edema. LABORATORY DATA: His hemoglobin is 9.7, hematocrit 28.9 with MCV of 92, WBC of 11.1, and platelets are 527,000. His BUN and creatinine are 55 and 1.7 respectively. Sodium is 148, potassium 4.0, chloride 109, CO2 is 30, and his glucose is 180. His glucose was 338 yesterday. His calcium is 9.3. IMPRESSION: The patient acute respiratory distress. ABG and chest x-ray will be ordered. Stat CBC, BMP, and UA will be done in the a.m. The patient again is not ready to be discharged. Martina Morales M.D. DR: LILIANA JOB#: [id number] CC:
[2017-07-12] MEDS: HydrALAZINE 25mg tab GT SCH ×3 (05:42→23:19)
[2017-07-12 07:52] LABS: HEMATOCRIT 27.3 % (42.0-52.0); HEMOGLOBIN 8.8 G/DL (14.2-18.0); MEAN CORPUSCULAR VOLUME 91 FL (80-99); PLATELET COUNT 521 K/UL (150-450); WHITE BLOOD COUNT 11.6 K/UL (4.8-10.8)
[2017-07-12 08:00] VITALS: BP 143/83
[2017-07-12 08:08] LABS: ANION GAP 7 mmol/L (5-15); BLOOD UREA NITROGEN 68 mg/dL (7-18); CALCIUM 9.2 MG/DL (8.5-10.1); CARBON DIOXIDE 31 MMOL/L (21-32); CHLORIDE 108 MMOL/L (98-107); CREATININE 1.9 MG/DL (0.55-1.30); SODIUM 146 MMOL/L (136-145)
[2017-07-12] MEDS: Heparin 5000 units/ml inj SUBQ SCH ×2 (09:00→21:00)
--- NOTE | 2017-07-12 09:16 | Diagnostic Imaging Report ---
Indication: Shortness of breath Technique: One view of the chest Comparison: 07/10/2017 Findings: Patient is rotated. The heart is enlarged. No definite acute infiltrate, although patchy suprahilar opacity on the left not completely ruled out. Pleural spaces are grossly clear Impression: Limited due to rotation. Doubt acute process; cannot completely rule out patchy left suprahilar opacity
[2017-07-12] MEDS: Aspirin Baby 81mg ORAL SCH (09:21)
[2017-07-12 09:26] LABS: APPEARANCE,URINE CLOUDY; BILIRUBIN, URINE NEGATIVE (NEGATIVE); COLOR,URINE PALE YELLOW; GLUCOSE, URINE (UA) NEGATIVE (NEGATIVE); KETONES,URINE NEGATIVE (NEGATIVE); LEUKOCYTE ESTERASE ,URINE 3+ (NEGATIVE); NITRITE,URINE NEGATIVE (NEGATIVE); PH,URINE 6 (4.5-8.0); PROTEIN,URINE 4+ (NEGATIVE); UROBILINOGEN,URINE NORMAL MG/DL (0.0-1.0)
[2017-07-12 12:00] VITALS: BP 137/71
--- NOTE | 2017-07-12 14:39 | Nephrology Progress Note ---
Assessment/Plan Problem List: (1) Acute renal failure (2) Respiratory failure requiring intubation (3) Urosepsis (4) Anemia Assessment: worsening (5) Hypoalbuminemia Assessment BOOGIE (acute kidney injury), Cr 1.9today , lower H&H lower Respiratory failure requiring intubation Respiratory failure with hypoxia Aspiration pneumonia, Urosepsis Anemia ACS (acute coronary syndrome), Non St Elevation VA CHF (congestive heart failure) Acute encephalopathy GT feeding LLL atelectesis worsening, Plan plan: Resp support will need tracheostomy to prevent worsening atelectaisis transfused avoid Nephrotoxics monitor renal parameters Keep BP and BS in check Optimize pulmonary and cardiac support DC planning Subjective ROS Limited/Unobtainable: No Constitutional: Reports: malaise, weakness Objective Objective Last 24 Hour Vital Signs Date Time Temp Pulse Resp B/P (MAP) Pulse Ox O2 Delivery O2 Flow Rate FiO2 07/12/17 14:25 137/71 07/12/17 12:00 97.7 87 20 137/71 98 07/12/17 11:41 87 20 98 Venturi Mask 4.0 30 07/12/17 11:31 88 20 99 Venturi Mask 4.0 30 07/12/17 09:21 89 143/83 07/12/17 09:21 89 143/83 07/12/17 08:03 89 20 98 Venturi Mask 8.0 40 07/12/17 08:00 97.7 79 21 143/83 100 07/12/17 07:53 Venturi Mask 8.0 40 07/12/17 07:53 Venturi Mask 07/12/17 07:53 90 22 98 Venturi Mask 8.0 40 07/12/17 05:42 133/81 07/12/17 04:00 98.1 85 18 146/74 100 07/12/17 03:03 90 20 98 Venturi Mask 8.0 40 07/12/17 02:53 89 22 98 Venturi Mask 10.0 45 07/12/17 00:00 98.1 93 19 133/81 96 07/11/17 22:55 99.4 07/11/17 22:50 99.4 07/11/17 22:50 89 24 98 Venturi Mask 10.0 45 07/11/17 22:34 86 24 88 Nasal Cannula 2.0 28 07/11/17 21:40 100 144/82 07/11/17 21:40 144/82 07/11/17 20:02 93 Nasal Cannula 2.0 28 07/11/17 20:02 Nasal Cannula 2.0 28 07/11/17 20:00 100.0 100 20 144/82 96 07/11/17 19:59 76 20 97 Nasal Cannula 2.0 28 07/11/17 19:50 89 24 91 Nasal Cannula 2.0 28 07/11/17 16:00 97.9 100 22 136/62 97 07/11/17 15:33 98 20 100 Nasal Cannula 2.0 28 07/11/17 15:22 96 20 98 Nasal Cannula 2.0 28 07/11/17 14:37 143/68 Intake and Output 07/11/17 07/12/17 19:00 07:00 Intake Total 1740 ml 1480 ml Balance 1740 ml 1480 ml Free Water 120 ml 120 ml IV Total 900 ml 700 ml Tube Feeding 720 ml 660 ml Laboratory Tests 07/11/17 21:59: Arterial Blood pH 7.473H, Arterial Blood Partial Pressure CO2 42.3, Arterial Blood Partial Pressure O2 46.2*L, Arterial Blood HCO3 30.3H, Arterial Blood Oxygen Saturation 84.7L, Arterial Blood Base Excess 6.1, Khang Test Positive 07/12/17 05:40: White Blood Count 11.6H, Red Blood Count 3.00L, Hemoglobin 8.8L, Hematocrit 27.3L, Mean Corpuscular Volume 91, Mean Corpuscular Hemoglobin 29.3, Mean Corpuscular Hemoglobin Concent 32.2, Red Cell Distribution Width 15.0H, Platelet Count 521H, Mean Platelet Volume 5.9L, Neutrophils (%) (Auto) , Lymphocytes (%) (Auto) , Monocytes (%) (Auto) , Eosinophils (%) (Auto) , Basophils (%) (Auto) , Differential Total Cells Counted 100, Neutrophils % ( Manual) 84H, Lymphocytes % (Manual) 9L, Monocytes % (Manual) 2, Eosinophils % ( Manual) 2, Basophils % (Manual) 3H, Band Neutrophils 0, Platelet Estimate Adequate, Platelet Morphology Normal, Hypochromasia 2+, Anisocytosis 1+, Spherocytes 1+, Sodium Level 146H, Potassium Level 4.0, Chloride Level 108H, Carbon Dioxide Level 31, Anion Gap 7, Blood Urea Nitrogen 68H, Creatinine 1.9H, Estimat Glomerular Filtration Rate 35.9, Glucose Level 168H, Calcium Level 9.2 07/12/17 08:05: Arterial Blood pH 7.446, Arterial Blood Partial Pressure CO2 44.2, Arterial Blood Partial Pressure O2 111.5H, Arterial Blood HCO3 29.8H, Arterial Blood Oxygen Saturation 97.8, Arterial Blood Base Excess 5.1, Khang Test Positive 07/12/17 08:20: Urine Color Pale yellow, Urine Appearance Cloudy, Urine pH 6, Urine Specific [place] 1.010, Urine Protein 4+H, Urine Glucose (UA) Negative, Urine Ketones Negative, Urine Occult Blood 5+H, Urine Nitrite Negative, Urine Bilirubin Negative, Urine Urobilinogen Normal, Urine Leukocyte Esterase 3+H, Urine RBC 5- 10H, Urine WBC 10-15H, Urine Squamous Epithelial Cells Few, Urine Bacteria None 07/12/17 11:45: Arterial Blood pH 7.492H, Arterial Blood Partial Pressure CO2 38.7, Arterial Blood Partial Pressure O2 126.1H, Arterial Blood HCO3 28.9H, Arterial Blood Oxygen Saturation 98.5H, Arterial Blood Base Excess 5.2, Khang Test Positive Height (Feet): 5 Height (Inches): 9.00 Weight (Pounds): 204 General Appearance: no apparent distress Respiratory/Chest: decreased breath sounds Abdomen: soft, distended Objective no other changes GARCÍA READ Jul 12, 2017 14:39
[2017-07-12 14:58] LABS: ALANINE AMINOTRANSFERASE 22 U/L (12-78); ALBUMIN 1.8 G/DL (3.4-5.0); ALKALINE PHOSPHATASE 97 U/L (46-116); ASPARTATE AMINO TRANSFERASE 19 U/L (15-37); BILIRUBIN,DIRECT < 0.1 MG/DL (0.0-0.3); BILIRUBIN,TOTAL 0.2 MG/DL (0.2-1.0); PHOSPHORUS 3.5 MG/DL (2.5-4.9)
[2017-07-12 16:00] VITALS: BP 138/71
--- NOTE | 2017-07-12 17:11 | Pulmonology Progress Note ---
Assessment/Plan Problems: (1) Acute renal failure (2) Aspiration pneumonia (3) Feeding by G-tube (4) History of CVA (cerebrovascular accident) (5) BOOGIE (acute kidney injury) Assessment/Plan cxr better worsening continue IV fluids lots of secretions off bipap now renal failure ithe same check eclectrolytes OB + in urine , +wbc in urine all noted and reviewed pt will benefit form tracheostomy, since he can't control his secretions. Subjective ROS Limited/Unobtainable: Yes Allergies: Coded Allergies: No Known Allergies (Unverified , 05/11/17) Objective Last 24 Hour Vital Signs Date Time Temp Pulse Resp B/P (MAP) Pulse Ox O2 Delivery O2 Flow Rate FiO2 07/12/17 16:00 98.4 69 18 138/71 99 07/12/17 15:30 91 20 98 Venturi Mask 4.0 30 07/12/17 15:11 90 20 98 Venturi Mask 4.0 30 07/12/17 14:25 137/71 07/12/17 12:00 97.7 87 20 137/71 98 07/12/17 11:41 87 20 98 Venturi Mask 4.0 30 07/12/17 11:31 88 20 99 Venturi Mask 4.0 30 07/12/17 09:21 89 143/83 07/12/17 09:21 89 143/83 07/12/17 08:03 89 20 98 Venturi Mask 8.0 40 07/12/17 08:00 97.7 79 21 143/83 100 07/12/17 07:53 Venturi Mask 8.0 40 07/12/17 07:53 Venturi Mask 07/12/17 07:53 90 22 98 Venturi Mask 8.0 40 07/12/17 05:42 133/81 07/12/17 04:00 98.1 85 18 146/74 100 07/12/17 03:03 90 20 98 Venturi Mask 8.0 40 07/12/17 02:53 89 22 98 Venturi Mask 10.0 45 07/12/17 00:00 98.1 93 19 133/81 96 07/11/17 22:55 99.4 07/11/17 22:50 99.4 07/11/17 22:50 89 24 98 Venturi Mask 10.0 45 07/11/17 22:34 86 24 88 Nasal Cannula 2.0 28 07/11/17 21:40 100 144/82 07/11/17 21:40 144/82 07/11/17 20:02 93 Nasal Cannula 2.0 28 07/11/17 20:02 Nasal Cannula 2.0 28 07/11/17 20:00 100.0 100 20 144/82 96 07/11/17 19:59 76 20 97 Nasal Cannula 2.0 28 07/11/17 19:50 89 24 91 Nasal Cannula 2.0 28 Intake and Output 07/11/17 07/12/17 19:00 07:00 Intake Total 1740 ml 1480 ml Balance 1740 ml 1480 ml Free Water 120 ml 120 ml IV Total 900 ml 700 ml Tube Feeding 720 ml 660 ml Objective General Appearance: no acute distress HEENT: normocephalic, atraumatic Respiratory/Chest: lungs clear, no respiratory distress, no accessory muscle use, loud rhonchi Cardiovascular: normal rate, no JVD, CL-femoral intact Abdomen: normal bowel sounds, soft, non tender Extremities: no edema Neurologic/Psychiatric: alert, responsive Musculoskeletal: normal muscle bulk Microbiology Date/Time Source Procedure Growth Status 07/09/17 19:00 Urine,Clean Catch Urine Culture - Preliminary Resulted Laboratory Tests 07/11/17 21:59: Arterial Blood pH 7.473H, Arterial Blood Partial Pressure CO2 42.3, Arterial Blood Partial Pressure O2 46.2*L, Arterial Blood HCO3 30.3H, Arterial Blood Oxygen Saturation 84.7L, Arterial Blood Base Excess 6.1, Khang Test Positive 07/12/17 05:40: White Blood Count 11.6H, Red Blood Count 3.00L, Hemoglobin 8.8L, Hematocrit 27.3L, Mean Corpuscular Volume 91, Mean Corpuscular Hemoglobin 29.3, Mean Corpuscular Hemoglobin Concent 32.2, Red Cell Distribution Width 15.0H, Platelet Count 521H, Mean Platelet Volume 5.9L, Neutrophils (%) (Auto) , Lymphocytes (%) (Auto) , Monocytes (%) (Auto) , Eosinophils (%) (Auto) , Basophils (%) (Auto) , Differential Total Cells Counted 100, Neutrophils % ( Manual) 84H, Lymphocytes % (Manual) 9L, Monocytes % (Manual) 2, Eosinophils % ( Manual) 2, Basophils % (Manual) 3H, Band Neutrophils 0, Platelet Estimate Adequate, Platelet Morphology Normal, Hypochromasia 2+, Anisocytosis 1+, Spherocytes 1+, Sodium Level 146H, Potassium Level 4.0, Chloride Level 108H, Carbon Dioxide Level 31, Anion Gap 7, Blood Urea Nitrogen 68H, Creatinine 1.9H, Estimat Glomerular Filtration Rate 35.9, Glucose Level 168H, Uric Acid 5.2, Calcium Level 9.2, Phosphorus Level 3.5, Magnesium Level 2.4, Total Bilirubin 0.2, Direct Bilirubin < 0.1, Aspartate Amino Transf (AST/SGOT) 19, Alanine Aminotransferase (ALT/SGPT) 22, Alkaline Phosphatase 97, Total Protein 7.2, Albumin 1.8L 07/12/17 08:05: Arterial Blood pH 7.446, Arterial Blood Partial Pressure CO2 44.2, Arterial Blood Partial Pressure O2 111.5H, Arterial Blood HCO3 29.8H, Arterial Blood Oxygen Saturation 97.8, Arterial Blood Base Excess 5.1, Khang Test Positive 07/12/17 08:20: Urine Color Pale yellow, Urine Appearance Cloudy, Urine pH 6, Urine Specific [place] 1.010, Urine Protein 4+H, Urine Glucose (UA) Negative, Urine Ketones Negative, Urine Occult Blood 5+H, Urine Nitrite Negative, Urine Bilirubin Negative, Urine Urobilinogen Normal, Urine Leukocyte Esterase 3+H, Urine RBC 5- 10H, Urine WBC 10-15H, Urine Squamous Epithelial Cells Few, Urine Bacteria None 07/12/17 11:45: Arterial Blood pH 7.492H, Arterial Blood Partial Pressure CO2 38.7, Arterial Blood Partial Pressure O2 126.1H, Arterial Blood HCO3 28.9H, Arterial Blood Oxygen Saturation 98.5H, Arterial Blood Base Excess 5.2, Khang Test Positive Current Medications Medications (Trade) Dose Ordered Sig/Willem Route PRN Reason Start Time Stop Time Status Last Admin Dose Admin Acetaminophen (Tylenol) 500 mg Q6H PRN ORAL MILD PAIN (1-4). NTE 3GM/DAY 07/06/17 19:01 07/30/17 19:00 Acetaminophen (Tylenol) 650 mg DAILY PRN ORAL Temp > 100.5 07/06/17 19:01 08/05/17 19:00 07/11/17 21:41 Acetaminophen (Tylenol) 650 mg Q6H PRN ORAL MODERATE PAIN (5-7) 07/06/17 19:01 07/30/17 19:00 Acetylcysteine (Mucomyst) 100 mg Q4HRT HHN 07/09/17 11:00 08/07/17 18:59 07/12/17 15:11 Amlodipine Besylate (Norvasc) 10 mg DAILY GT 07/07/17 09:00 07/21/17 08:59 07/12/17 09:21 Aspirin (ASA) 81 mg DAILY ORAL 07/07/17 09:00 07/30/17 08:59 07/12/17 09:21 Bisacodyl (Dulcolax) 10 mg DAILYPRN PRN RECTAL constipationIF MOM INEFFECTIVE 07/06/17 21:00 07/26/17 20:59 Clonidine HCl (Catapres Tab) 0.1 mg Q4H PRN GT bp of 160 syst and above 07/06/17 19:14 07/21/17 19:13 Collagenase (Santyl) 1 applic DAILY TOPIC 07/07/17 09:00 07/29/17 08:59 07/12/17 10:53 Dextrose (Dextrose 50%) STAT PRN IV Hypoglycemia 07/06/17 21:00 07/26/17 20:59 Famotidine (Pepcid) 20 mg DAILY ORAL 07/07/17 09:00 07/22/17 08:59 07/12/17 09:21 Heparin Sodium (Porcine) (Heparin 5000 units/ml) 5,000 units EVERY 12 HOURS SUBQ 07/06/17 21:00 07/21/17 08:59 07/09/17 08:34 Hydralazine HCl (Apresoline) 25 mg Q8HR GT 07/06/17 22:00 07/21/17 17:59 07/12/17 14:25 Insulin Aspart (NovoLOG) EVERY 6 HOURS SUBQ 07/07/17 00:00 07/21/17 06:29 07/12/17 12:16 Insulin Detemir (Levemir) 15 units QHS SUBQ 07/06/17 21:00 08/03/17 20:59 07/11/17 21:42 Levalbuterol HCl (Xopenex) 1.25 mg Q4HRT HHN 07/10/17 07:00 07/15/17 06:59 07/12/17 15:11 Levothyroxine Sodium (Synthroid) 50 mcg ACBREAKFAST GT 07/07/17 06:30 07/21/17 06:29 07/12/17 05:42 Metoprolol Tartrate (Lopressor) 100 mg EVERY 12 HOURS GT 07/06/17 21:00 08/03/17 20:59 07/12/17 09:21 Nitroglycerin (Ntg) 0.4 mg Q5M PRN SL CHEST PAIN 07/06/17 18:45 07/21/17 20:59 Sodium Chloride 1,000 ml @ 75 mls/hr [id number] IV 07/06/17 19:00 08/03/17 18:59 07/12/17 11:22 JESSE ZAVALA Jul 12, 2017 17:11
[2017-07-12 20:00] VITALS: BP 135/68
--- NOTE | 2017-07-12 21:46 | General Progress Note ---
Assessment/Plan Status: deteriorating Assessment/Plan #. Anemia secondary to chronic disease. Anemia workup reviewed. --> Hemoglobin goal >7 --> Trend cbc daily. --> No transfusion needed today. Has been above goal #. Coagulopathy, malnutrition and vitamin K deficiency. --> administer vitamin K as needed. --> Goal INR between 2 and 3 --> Trend levels daily. #. Leukocytosis, likely secondary to underlying infection, sepsis, and antibiotics. --> has resolved, wbc count wnl --> S/P vancomycin. #. Thrombocytosis. #. Acute hypoxemia, requiring intubation. --> Currently extubated #. Acute kidney injury. #. Dysphagia with gastrostomy tube. #. Cerebrovascular accident with right-sided hemiplegia. #. Acute toxic metabolic encephalopathy. #. Hypothyroidism. Subjective Allergies: Coded Allergies: No Known Allergies (Unverified , 05/11/17) Subjective Condition deteriorating. No fever. Objective Last 24 Hour Vital Signs Date Time Temp Pulse Resp B/P (MAP) Pulse Ox O2 Delivery O2 Flow Rate FiO2 07/12/17 20:00 98.9 100 22 135/68 94 07/12/17 19:20 99 Venturi Mask 4.0 30 07/12/17 19:20 Venturi Mask 4.0 30 07/12/17 19:15 78 20 98 Venturi Mask 4.0 30 07/12/17 18:20 77 20 99 Venturi Mask 4.0 30 07/12/17 16:00 98.4 69 18 138/71 99 07/12/17 15:30 91 20 98 Venturi Mask 4.0 30 07/12/17 15:11 90 20 98 Venturi Mask 4.0 30 07/12/17 14:25 137/71 07/12/17 12:00 97.7 87 20 137/71 98 07/12/17 11:41 87 20 98 Venturi Mask 4.0 30 07/12/17 11:31 88 20 99 Venturi Mask 4.0 30 07/12/17 09:21 89 143/83 07/12/17 09:21 89 143/83 07/12/17 08:03 89 20 98 Venturi Mask 8.0 40 07/12/17 08:00 97.7 79 21 143/83 100 07/12/17 07:53 Venturi Mask 8.0 40 07/12/17 07:53 Venturi Mask 07/12/17 07:53 90 22 98 Venturi Mask 8.0 40 07/12/17 05:42 133/81 07/12/17 04:00 98.1 85 18 146/74 100 07/12/17 03:03 90 20 98 Venturi Mask 8.0 40 07/12/17 02:53 89 22 98 Venturi Mask 10.0 45 07/12/17 00:00 98.1 93 19 133/81 96 07/11/17 22:55 99.4 07/11/17 22:50 99.4 07/11/17 22:50 89 24 98 Venturi Mask 10.0 45 07/11/17 22:34 86 24 88 Nasal Cannula 2.0 28 Intake and Output 07/11/17 07/12/17 19:00 07:00 Intake Total 1740 ml 1480 ml Balance 1740 ml 1480 ml Free Water 120 ml 120 ml IV Total 900 ml 700 ml Tube Feeding 720 ml 660 ml Laboratory Tests 07/11/17 21:59: Arterial Blood pH 7.473H, Arterial Blood Partial Pressure CO2 42.3, Arterial Blood Partial Pressure O2 46.2*L, Arterial Blood HCO3 30.3H, Arterial Blood Oxygen Saturation 84.7L, Arterial Blood Base Excess 6.1, Khang Test Positive 07/12/17 05:40: White Blood Count 11.6H, Red Blood Count 3.00L, Hemoglobin 8.8L, Hematocrit 27.3L, Mean Corpuscular Volume 91, Mean Corpuscular Hemoglobin 29.3, Mean Corpuscular Hemoglobin Concent 32.2, Red Cell Distribution Width 15.0H, Platelet Count 521H, Mean Platelet Volume 5.9L, Neutrophils (%) (Auto) , Lymphocytes (%) (Auto) , Monocytes (%) (Auto) , Eosinophils (%) (Auto) , Basophils (%) (Auto) , Differential Total Cells Counted 100, Neutrophils % ( Manual) 84H, Lymphocytes % (Manual) 9L, Monocytes % (Manual) 2, Eosinophils % ( Manual) 2, Basophils % (Manual) 3H, Band Neutrophils 0, Platelet Estimate Adequate, Platelet Morphology Normal, Hypochromasia 2+, Anisocytosis 1+, Spherocytes 1+, Sodium Level 146H, Potassium Level 4.0, Chloride Level 108H, Carbon Dioxide Level 31, Anion Gap 7, Blood Urea Nitrogen 68H, Creatinine 1.9H, Estimat Glomerular Filtration Rate 35.9, Glucose Level 168H, Uric Acid 5.2, Calcium Level 9.2, Phosphorus Level 3.5, Magnesium Level 2.4, Total Bilirubin 0.2, Direct Bilirubin < 0.1, Aspartate Amino Transf (AST/SGOT) 19, Alanine Aminotransferase (ALT/SGPT) 22, Alkaline Phosphatase 97, Total Protein 7.2, Albumin 1.8L 07/12/17 08:05: Arterial Blood pH 7.446, Arterial Blood Partial Pressure CO2 44.2, Arterial Blood Partial Pressure O2 111.5H, Arterial Blood HCO3 29.8H, Arterial Blood Oxygen Saturation 97.8, Arterial Blood Base Excess 5.1, Khang Test Positive 07/12/17 08:20: Urine Color Pale yellow, Urine Appearance Cloudy, Urine pH 6, Urine Specific [place] 1.010, Urine Protein 4+H, Urine Glucose (UA) Negative, Urine Ketones Negative, Urine Occult Blood 5+H, Urine Nitrite Negative, Urine Bilirubin Negative, Urine Urobilinogen Normal, Urine Leukocyte Esterase 3+H, Urine RBC 5- 10H, Urine WBC 10-15H, Urine Squamous Epithelial Cells Few, Urine Bacteria None 07/12/17 11:45: Arterial Blood pH 7.492H, Arterial Blood Partial Pressure CO2 38.7, Arterial Blood Partial Pressure O2 126.1H, Arterial Blood HCO3 28.9H, Arterial Blood Oxygen Saturation 98.5H, Arterial Blood Base Excess 5.2, Khang Test Positive Height (Feet): 5 Height (Inches): 9.00 Weight (Pounds): 204 General Appearance: lethargic Respiratory/Chest: decreased breath sounds Dejan Copeland Jul 12, 2017 21:46
[2017-07-12] MEDS: Levemir Flexpen SUBQ SCH (23:25)
[2017-07-13] VITALS (7 sets, daily range): BP systolic 131–143; BP diastolic 64–93
[2017-07-13] MEDS: Levalbuterol Inh UD 1.25mg/0.5ml HHN SCH ×6 (02:55→23:31)
[2017-07-13] MEDS: HydrALAZINE 25mg tab GT SCH ×3 (05:13→21:07)
[2017-07-13] MEDS: NovoLOG Insulin Flexpen SUBQ SCH ×3 (05:19→18:09)
[2017-07-13 06:33] LABS: BASOPHILS % (AUTO) 0.4 % (0.0-2.0); EOSINOPHILS % (AUTO) 0.7 % (0.0-3.0); HEMATOCRIT 26.7 % (42.0-52.0); HEMOGLOBIN 8.2 G/DL (14.2-18.0); LYMPHOCYTES % (AUTO) 11.4 % (20.0-45.0); MEAN CORPUSCULAR VOLUME 92 FL (80-99); MONOCYTES % (AUTO) 3.9 % (1.0-10.0); NEUTROPHILS % (AUTO) 83.6 % (45.0-75.0); PLATELET COUNT 528 K/UL (150-450); RED BLOOD COUNT 2.91 M/UL (4.70-6.10); RED CELL DISTRIBUTION WIDTH 14.9 % (11.6-14.8); WHITE BLOOD COUNT 9.8 K/UL (4.8-10.8)
[2017-07-13 07:31] LABS: ALANINE AMINOTRANSFERASE 21 U/L (12-78); ALBUMIN 1.7 G/DL (3.4-5.0); ALBUMIN/GLOBULIN RATIO 0.4 (1.0-2.7); ALKALINE PHOSPHATASE 104 U/L (46-116); ANION GAP 8 mmol/L (5-15); ASPARTATE AMINO TRANSFERASE 23 U/L (15-37); BILIRUBIN,TOTAL 0.2 MG/DL (0.2-1.0); BLOOD UREA NITROGEN 87 mg/dL (7-18); CALCIUM 8.8 MG/DL (8.5-10.1); CARBON DIOXIDE 29 MMOL/L (21-32); CHLORIDE 107 MMOL/L (98-107); CREATININE 2.3 MG/DL (0.55-1.30); POTASSIUM 5.2 MMOL/L (3.5-5.1); SODIUM 144 MMOL/L (136-145)
--- NOTE | 2017-07-13 09:43 | Diagnostic Imaging Report ---
Indication: Dyspnea Technique: One view of the chest Comparison: 07/11/2017 Findings: Less optimal inspiration currently. Increasing right basilar atelectasis. No definite consolidation or pleural fluid. Heart size is borderline enlarged. Impression: Increasing right basilar atelectasis Other stable findings as described, including borderline cardiomegaly
[2017-07-13] MEDS: Aspirin Baby 81mg ORAL SCH (10:00)
[2017-07-13] MEDS: Heparin 5000 units/ml inj SUBQ SCH ×2 (10:08→20:51)
--- NOTE | 2017-07-13 10:15 | Progress Note ---
DATE: 07/12/2017 NOTE: POOR AUDIO SUBJECTIVE: The patient is awake, alert, afebrile, and struggling to maintain his breath. PHYSICAL EXAMINATION: VITAL SIGNS: Blood pressure is 135/68, his pulse is 78, respirations 20, and temperature 98.4. HEENT: Eyes were normal. ENT, mucous membranes were moist and intact. NECK: Supple with no JVD without lymph nodes. LUNGS: Bilateral rhonchi at both bases. HEART: Normal sounds with regular beats. There is no tachycardia at rest. ABDOMEN: Soft and nontender with normal bowel sounds. Gastrostomy site is clean. EXTREMITIES: Warm without cyanosis, clubbing, or edema. LABORATORY AND DIAGNOSTIC DATA: Hemoglobin is 8.8, hematocrit 27.3 with MCV of 91, WBC of 11.6, and platelets are 521,000. His BUN and creatinine are 68 and 1.9, respectively. It was 65 and 1.7 yesterday. His sodium is 146, potassium 4.0, chloride 108, and CO2 is 31. His urinalysis show 5 to 10 RBC per high-power field and 10 to 15 WBC per high-power field. glucose. Chest x-ray is of poor quality and decided being no change to the left upper lobe infiltrate. IMPRESSION AND PLAN: The patient has been planned to be discharged respiratory distress last night not report any mass after discussion with the general passenger agent without emergency the patient tracheostomy to protect his airways from his hypersalivation. The case will be discussed with the patient's sister. Repeat laboratory tests will be done in the morning. Martina Morales M.D. DR: WESTLEY JOB#: [id number] CC:
--- NOTE | 2017-07-13 11:07 | Infectious Diseases Prog Note ---
Assessment/Plan Assessment/Plan A: Fever PSA Pneumonia Sepsis 2ry to HCAP, improving CXR 06/26: Probable mild CHF. Please correlate clinically -CXR 06/22: Lungs and pleural spaces are clear -CXR: There is infiltrate in the left infrahilar region. There is some atelectasis at the right lung base. There is also retrocardiac consolidation -sp cx: +3 MDR PSA (S. Cefepime, Gentamicin/Amikacin) -u./a WBC 5-10, nit neg, leuk est +1, ucx 10-20K C. albicans (colonzier) -rectal wound cx: ESBL E.coli, PsA (colonizers)- no signs of infection 07/22 CoNS bacteremia- suspect contaminant 06/20 +07/22, 06/21 Neg x4 ? UTI : UCx : chinedu leukocytosis-resolved Lactic acidosis- resolved Cdiff neg 06/25 -Neg: HIV ag/ab, RPR, CrAg serum, FTA-ab Acute hypoxic resp failure s/p intubation 06/20- s/p extubation 06/25 BOOGIE Recent gastritis (dx by EGD) Hx of encephalopathy -05/22 CT head: No evidence of acute intracranial hemorrhage, mass effect or cortical edema. MRI may be obtained for more sensitive evaluation as clinically indicated. Stable chronic infarct in the right frontal lobe. Cerebral and cerebellar atrophy greater than expected for age. Clinical correlation recommended. Mild periventricular hypoattenuation suggestive of chronic ischemic microvascular changes. -previous admission:nical correlation recommended. Mild periventricular hypoattenuation suggestive of chronic ischemic microvascular changes. Small area of right frontal encephalomalacia suggestive of old infarct. -UDS neg -TSH normal -Brain MRI: Chronic and age-related changes. Old right frontal infarct. 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 Plan: - IV Diflucan d# , upon DC will change to po - 07/09 SP Cefepime d# , and Amikacin d# / -06/25 SP IV vancomycin #5, Amikacin #5 -06/23 SP Meropenem #3 -1/4 SP Amikacin x1 - UC x: P - Blood cx - sputum Cx -Monitor CBC/BMP, temperatures -aspiration precautions - wound care Subjective Constitutional: Denies: no symptoms, fever, chills, fatigue, anorexia, drenching sweats, other Allergies: Coded Allergies: No Known Allergies (Unverified , 05/11/17) Subjective comfortable Afebrile Objective Vital Signs Last 24 Hour Vital Signs Date Time Temp Pulse Resp B/P (MAP) Pulse Ox O2 Delivery O2 Flow Rate FiO2 07/13/17 10:48 92 18 96 Venturi Mask 4.0 30 07/13/17 10:00 96 143/73 07/13/17 10:00 96 143/73 07/13/17 08:00 98.2 96 18 143/73 99 07/13/17 07:30 98.2 07/13/17 07:08 96 20 99 Venturi Mask 4.0 30 07/13/17 06:55 98 Venturi Mask 4.0 30 07/13/17 06:55 94 18 98 Venturi Mask 4.0 30 07/13/17 06:55 Venturi Mask 4.0 30 07/13/17 05:13 142/70 07/13/17 04:00 102.0 101 20 142/70 94 07/13/17 02:47 101 20 100 Venturi Mask 4.0 30 07/13/17 02:40 100 20 98 Venturi Mask 4.0 30 07/13/17 00:00 Venturi Mask 30 07/13/17 00:00 99.9 93 20 142/93 96 07/12/17 23:19 100 135/68 07/12/17 23:19 135/68 07/12/17 23:10 103 20 99 Venturi Mask 4.0 30 07/12/17 23:00 101 20 98 Venturi Mask 4.0 30 07/12/17 20:00 Venturi Mask 30 07/12/17 20:00 98.9 100 22 135/68 94 07/12/17 19:20 99 Venturi Mask 4.0 30 07/12/17 19:20 Venturi Mask 4.0 30 07/12/17 19:15 78 20 98 Venturi Mask 4.0 30 07/12/17 18:20 77 20 99 Venturi Mask 4.0 30 07/12/17 16:00 98.4 69 18 138/71 99 07/12/17 15:30 91 20 98 Venturi Mask 4.0 30 07/12/17 15:11 90 20 98 Venturi Mask 4.0 30 07/12/17 14:25 137/71 07/12/17 12:00 97.7 87 20 137/71 98 07/12/17 11:41 87 20 98 Venturi Mask 4.0 30 07/12/17 11:31 88 20 99 Venturi Mask 4.0 30 Height (Feet): 5 Height (Inches): 9.00 Weight (Pounds): 205 HEENT: atraumatic Respiratory/Chest: normal breath sounds Cardiovascular: regular rhythm Abdomen: soft, non tender Microbiology Date/Time Source Procedure Growth Status 07/12/17 08:20 Urine,Clean Catch Urine Culture - Preliminary NO GROWTH Resulted Laboratory Tests Test 07/12/17 11:45 07/13/17 04:00 Arterial Blood pH 7.492 (7.350-7.450) Arterial Blood Partial Pressure CO2 38.7 mmHg (35.0-45.0) Arterial Blood Partial Pressure O2 126.1 mmHg (75.0-100.0) H Arterial Blood HCO3 28.9 mmol/L (22.0-26.0) H Arterial Blood Oxygen Saturation 98.5 % (92.0-98.0) H Arterial Blood Base Excess 5.2 Khang Test Positive White Blood Count 9.8 K/UL (4.8-10.8) Red Blood Count 2.91 M/UL (4.70-6.10) L Hemoglobin 8.2 G/DL (14.2-18.0) L Hematocrit 26.7 % (42.0-52.0) L Mean Corpuscular Volume 92 FL (80-99) Mean Corpuscular Hemoglobin 28.2 PG (27.0-31.0) Mean Corpuscular Hemoglobin Concent 30.8 G/DL (32.0-36.0) L Red Cell Distribution Width 14.9 % (11.6-14.8) H Platelet Count 528 K/UL (150-450) H Mean Platelet Volume 6.0 FL (6.5-10.1) L Neutrophils (%) (Auto) 83.6 % (45.0-75.0) H Lymphocytes (%) (Auto) 11.4 % (20.0-45.0) L Monocytes (%) (Auto) 3.9 % (1.0-10.0) Eosinophils (%) (Auto) 0.7 % (0.0-3.0) Basophils (%) (Auto) 0.4 % (0.0-2.0) Sodium Level 144 MMOL/L (136-145) Potassium Level 5.2 MMOL/L (3.5-5.1) H Chloride Level 107 MMOL/L (98-107) Carbon Dioxide Level 29 MMOL/L (21-32) Anion Gap 8 mmol/L (5-15) Blood Urea Nitrogen 87 mg/dL (7-18) H Creatinine 2.3 MG/DL (0.55-1.30) H Estimat Glomerular Filtration Rate 28.8 mL/min (>60) Glucose Level 325 MG/DL (74-106) #H Calcium Level 8.8 MG/DL (8.5-10.1) Total Bilirubin 0.2 MG/DL (0.2-1.0) Aspartate Amino Transf (AST/SGOT) 23 U/L (15-37) Alanine Aminotransferase (ALT/SGPT) 21 U/L (12-78) Alkaline Phosphatase 104 U/L (46-116) Pro-B-Type Natriuretic Peptide 5231 pg/mL (0-125) H Total Protein 6.2 G/DL (6.4-8.2) L Albumin 1.7 G/DL (3.4-5.0) L Globulin 4.5 g/dL Albumin/Globulin Ratio 0.4 (1.0-2.7) L Current Medications Medications (Trade) Dose Ordered Sig/Willem Route PRN Reason Start Time Stop Time Status Last Admin Dose Admin Acetaminophen (Tylenol) 500 mg Q6H PRN ORAL MILD PAIN (1-4). NTE 3GM/DAY 07/06/17 19:07/30/17 19:00 Acetaminophen (Tylenol) 650 mg DAILY PRN ORAL Temp > 100.5 07/06/17 19:01 08/05/17 19:00 07/13/17 05:24 Acetaminophen (Tylenol) 650 mg Q6H PRN ORAL MODERATE PAIN (5-7) 07/06/17 19:07/30/17 19:00 Acetylcysteine (Mucomyst) 100 mg Q4HRT HHN 07/09/17 11:00 08/07/17 18:59 07/13/17 10:48 Amlodipine Besylate (Norvasc) 10 mg DAILY GT 07/07/17 09:00 07/21/17 08:59 07/13/17 10:00 Aspirin (ASA) 81 mg DAILY ORAL 07/07/17 09:00 07/30/17 08:59 07/13/17 10:00 Bisacodyl (Dulcolax) 10 mg DAILYPRN PRN RECTAL constipationIF MOM INEFFECTIVE 07/06/17 21:00 07/26/17 20:59 Clonidine HCl (Catapres Tab) 0.1 mg Q4H PRN GT bp of 160 syst and above 07/06/17 19:14 07/21/17 19:13 Collagenase (Santyl) 1 applic DAILY TOPIC 07/07/17 09:00 07/29/17 08:59 07/13/17 10:02 Dextrose (Dextrose 50%) STAT PRN IV Hypoglycemia 07/06/17 21:00 07/26/17 20:59 Famotidine (Pepcid) 20 mg DAILY ORAL 07/07/17 09:00 07/22/17 08:59 07/13/17 10:00 Heparin Sodium (Porcine) (Heparin 5000 units/ml) 5,000 units EVERY 12 HOURS SUBQ 07/06/17 21:00 07/21/17 08:59 07/13/17 10:08 Hydralazine HCl (Apresoline) 25 mg Q8HR GT 07/06/17 22:00 07/21/17 17:59 07/13/17 05:13 Insulin Aspart (NovoLOG) EVERY 6 HOURS SUBQ 07/07/17 00:00 07/21/17 06:29 07/13/17 05:19 Insulin Detemir (Levemir) 15 units QHS SUBQ 07/06/17 21:00 08/03/17 20:59 07/12/17 23:25 Levalbuterol HCl (Xopenex) 1.25 mg Q4HRT HHN 07/10/17 07:00 07/15/17 06:59 07/13/17 10:47 Levothyroxine Sodium (Synthroid) 50 mcg ACBREAKFAST GT 07/07/17 06:30 07/21/17 06:29 07/13/17 05:13 Metoprolol Tartrate (Lopressor) 100 mg EVERY 12 HOURS GT 07/06/17 21:00 08/03/17 20:59 07/13/17 10:00 Nitroglycerin (Ntg) 0.4 mg Q5M PRN SL CHEST PAIN 07/06/17 18:45 07/21/17 20:59 Sodium Chloride 1,000 ml @ 75 mls/hr [id number] IV 07/06/17 19:00 08/03/17 18:59 07/13/17 05:36 REJI HOANG M.D. Jul 13, 2017 11:07
--- NOTE | 2017-07-13 11:32 | Nephrology Progress Note ---
Assessment/Plan Problem List: (1) Acute renal failure (2) Respiratory failure requiring intubation (3) Urosepsis (4) Anemia Assessment: worsening (5) Hypoalbuminemia Assessment BOOGIE (acute kidney injury), Cr 2.3 higher H&H lower Respiratory failure requiring intubation Respiratory failure with hypoxia Aspiration pneumonia, Urosepsis Anemia ACS (acute coronary syndrome), Non St Elevation MO CHF (congestive heart failure) Acute encephalopathy GT feeding LLL atelectesis worsening, Plan plan: Resp support transfused avoid Nephrotoxics monitor renal parameters Keep BP and BS in check Optimize pulmonary and cardiac support Subjective ROS Limited/Unobtainable: No Constitutional: Reports: malaise, weakness Objective Objective Last 24 Hour Vital Signs Date Time Temp Pulse Resp B/P (MAP) Pulse Ox O2 Delivery O2 Flow Rate FiO2 07/13/17 11:08 100 20 99 Venturi Mask 4.0 30 07/13/17 10:48 92 18 96 Venturi Mask 4.0 30 07/13/17 10:00 96 143/73 07/13/17 10:00 96 143/73 07/13/17 08:00 98.2 96 18 143/73 99 07/13/17 07:30 98.2 07/13/17 07:08 96 20 99 Venturi Mask 4.0 30 07/13/17 06:55 98 Venturi Mask 4.0 30 07/13/17 06:55 94 18 98 Venturi Mask 4.0 30 07/13/17 06:55 Venturi Mask 4.0 30 07/13/17 05:13 142/70 07/13/17 04:00 102.0 101 20 142/70 94 07/13/17 02:47 101 20 100 Venturi Mask 4.0 30 07/13/17 02:40 100 20 98 Venturi Mask 4.0 30 07/13/17 00:00 Venturi Mask 30 07/13/17 00:00 99.9 93 20 142/93 96 07/12/17 23:19 100 135/68 07/12/17 23:19 135/68 07/12/17 23:10 103 20 99 Venturi Mask 4.0 30 07/12/17 23:00 101 20 98 Venturi Mask 4.0 30 07/12/17 20:00 Venturi Mask 30 07/12/17 20:00 98.9 100 22 135/68 94 07/12/17 19:20 99 Venturi Mask 4.0 30 07/12/17 19:20 Venturi Mask 4.0 30 07/12/17 19:15 78 20 98 Venturi Mask 4.0 30 07/12/17 18:20 77 20 99 Venturi Mask 4.0 30 07/12/17 16:00 98.4 69 18 138/71 99 07/12/17 15:30 91 20 98 Venturi Mask 4.0 30 07/12/17 15:11 90 20 98 Venturi Mask 4.0 30 07/12/17 14:25 137/71 07/12/17 12:00 97.7 87 20 137/71 98 07/12/17 11:41 87 20 98 Venturi Mask 4.0 30 07/12/17 11:31 88 20 99 Venturi Mask 4.0 30 Intake and Output 07/12/17 07/13/17 19:00 07:00 Intake Total 1305 ml 1610 ml Output Total 700 ml 700 ml Balance 605 ml 910 ml Free Water 60 ml 100 ml IV Total 525 ml 850 ml Tube Feeding 720 ml 660 ml Output Urine Total 700 ml 700 ml Laboratory Tests 07/12/17 11:45: Arterial Blood pH 7.492H, Arterial Blood Partial Pressure CO2 38.7, Arterial Blood Partial Pressure O2 126.1H, Arterial Blood HCO3 28.9H, Arterial Blood Oxygen Saturation 98.5H, Arterial Blood Base Excess 5.2, Khang Test Positive 07/13/17 04:00: White Blood Count 9.8, Red Blood Count 2.91L, Hemoglobin 8.2L, Hematocrit 26.7L , Mean Corpuscular Volume 92, Mean Corpuscular Hemoglobin 28.2, Mean Corpuscular Hemoglobin Concent 30.8L, Red Cell Distribution Width 14.9H, Platelet Count 528H, Mean Platelet Volume 6.0L, Neutrophils (%) (Auto) 83.6H, Lymphocytes (%) (Auto) 11.4L, Monocytes (%) (Auto) 3.9, Eosinophils (%) (Auto) 0.7, Basophils (%) (Auto) 0.4, Sodium Level 144, Potassium Level 5.2H, Chloride Level 107, Carbon Dioxide Level 29, Anion Gap 8, Blood Urea Nitrogen 87H, Creatinine 2.3H, Estimat Glomerular Filtration Rate 28.8, Glucose Level 325#H, Calcium Level 8.8, Total Bilirubin 0.2, Aspartate Amino Transf (AST/SGOT) 23, Alanine Aminotransferase (ALT/SGPT) 21, Alkaline Phosphatase 104, Pro-B-Type Natriuretic Peptide 5231H, Total Protein 6.2L, Albumin 1.7L, Globulin 4.5, Albumin/Globulin Ratio 0.4L Height (Feet): 5 Height (Inches): 9.00 Weight (Pounds): 205 General Appearance: no apparent distress, lethargic Cardiovascular: tachycardia Respiratory/Chest: decreased breath sounds Abdomen: distended Objective no other changes GARCÍA READ Jul 13, 2017 11:32
--- NOTE | 2017-07-13 13:04 | Consultation ---
History of Present Illness General Date patient seen: Jul 13, 2017 Chief Complaint: Dyspnea/Respdistress Reason for Consultation: eval for trach / respiratory distress Present Illness HPI 62M resident of an extended care facility who initially developed sepsis and was transferred to [facility] urgent care and was admitted for care and management. When stable, he was transferred back to convalescent. Within 48 hours after that discharge, the patient developed sepsis with tachycardia and fever. Paramedics were called and he patient was transferred to [facility] ER where he was found to be in acute respiratory failure requiring intubatubation with mechanical ventilation. Since he has been extubated but has been having difficulties. He has acquired pneumonia. He is under medical care and has been noted to have excessive secretions with aspiration. maximal medical efforts have been made to improve this but have not been successful. His condition is guarded given excessive secretions and aspirations. protected airway has been considered/recommended. surgery called to evaluate. patient seen, chart reviewed, spoke with staff. Allergies: Coded Allergies: No Known Allergies (Unverified , 05/11/17) Medication History Scheduled Acetaminophen* (Acetaminophen 325MG Tablet*), 650 MG GT DAILY, (Reported) Amlodipine Besylate* (Amlodipine Besylate*), 10 MG GT BID, (Reported) Ascorbic Acid* (Vitamin C*), 500 MG GT TWICE A DAY, (Reported) Aspirin* (Aspir 81*), 81 MG GT DAILY, (Reported) Docusate Sodium* (Docusate Sodium*), 100 MG GT DAILY, (Reported) Insulin Aspart (Novolog), 100 UNIT SQ AC+HS, (Reported) Levothyroxine Sodium* (Levothyroxine Sodium*), 50 MCG GT DAILY, (Reported) Lisinopril (Lisinopril*), 20 MG GT BID, (Reported) Magnesium Hydroxide* (Milk Of Magnesia*), 30 ML ORAL HS, (Reported) Metoprolol Tartrate* (Metoprolol Tartrate*), 50 MG GT EVERY 12 HOURS, (Reported) Multivitamin Liquid* (Multi-Delyn*), 5 ML GT DAILY, (Reported) Ranitidine Hcl* (Zantac*), 150 MG GT TWICE A DAY, (Reported) Zinc Sulfate (Zinc Sulfate*), 220 MG GT DAILY, (Reported) Scheduled PRN Acetaminophen* (Acetaminophen 325MG Tablet*), 650 MG ORAL Q6H PRN for MILD PAIN (1-4). NTE 3GM/DAY, (Reported) Acetaminophen* (Tylenol Extra Strength*), 1,000 MG GT Q6H PRN for MODERATE PAIN (5-7), (Reported) Bisacodyl (Dulcolax), 10 MG RC DAILY PRN for IF MOM INEFFECTIVE, (Reported) Na Phos,M-B/Na Phos,Di-Ba* (Fleet Enema*), 133 ML RECTAL EVERY OTHER DAY PRN for IF DULCOLAX IS INEFFECTIVE, (Reported) Nitroglycerin (Nitrostat), 0.4 MG SL Q5M X3 DOSES PRN for CHEST PAIN, (Reported) Temazepam* (Restoril*), 15 MG ORAL BEDTIME PRN for Insomnia, (Reported) Patient History Limited by: medical condition History Provided By: Medical Record, PMD Healthcare decision maker N Resuscitation status Advanced Directive on File Past Medical/Surgical History Past Medical/Surgical History: (1) Uncontrolled diabetes mellitus (2) Hypothyroidism (3) Acute hyperglycemia (4) V-tach (5) Hypertension (6) Respiratory failure with hypoxia (7) Anemia (8) CHF (congestive heart failure) (9) Aspiration pneumonia (10) ACS (acute coronary syndrome) (11) BOOGIE (acute kidney injury) (12) Acute encephalopathy (13) Urosepsis (14) ATN (acute tubular necrosis) (15) Feeding by G-tube (16) History of CVA (cerebrovascular accident) (17) Non-ST elevation (NSTEMI) myocardial infarction (18) Acute renal failure (19) Respiratory failure requiring intubation (20) Anemia (21) Hypoalbuminemia Review of Systems ROS Narrative cannot obtain given patients current medical condition Physical Exam General Appearance: no apparent distress, lethargic HEENT: other - LOTS of secretions that require constant suctioning. Neck: supple Respiratory/Chest: no respiratory distress, no accessory muscle use, decreased breath sounds Cardiovascular/Chest: normal peripheral pulses, normal rate Abdomen: normal bowel sounds, non tender, soft, no organomegaly, no mass Extremities: no cyanosis Skin Exam: warm/dry Neurologic: unresponsiveness Last 24 Hour Vital Signs Date Time Temp Pulse Resp B/P (MAP) Pulse Ox O2 Delivery O2 Flow Rate FiO2 07/13/17 11:08 100 20 99 Venturi Mask 4.0 30 1/26/18 10:48 92 18 96 Venturi Mask 4.0 30 07/13/17 10:00 96 143/73 07/13/17 10:00 96 143/73 07/13/17 08:00 98.2 96 18 143/73 99 07/13/17 07:30 98.2 07/13/17 07:08 96 20 99 Venturi Mask 4.0 30 07/13/17 06:55 98 Venturi Mask 4.0 30 07/13/17 06:55 94 18 98 Venturi Mask 4.0 30 07/13/17 06:55 Venturi Mask 4.0 30 07/13/17 05:13 142/70 07/13/17 04:00 102.0 101 20 142/70 94 07/13/17 02:47 101 20 100 Venturi Mask 4.0 30 07/13/17 02:40 100 20 98 Venturi Mask 4.0 30 07/13/17 00:00 Venturi Mask 30 07/13/17 00:00 99.9 93 20 142/93 96 07/12/17 23:19 100 135/68 07/12/17 23:19 135/68 07/12/17 23:10 103 20 99 Venturi Mask 4.0 30 07/12/17 23:00 101 20 98 Venturi Mask 4.0 30 07/12/17 20:00 Venturi Mask 30 07/12/17 20:00 98.9 100 22 135/68 94 07/12/17 19:20 99 Venturi Mask 4.0 30 07/12/17 19:20 Venturi Mask 4.0 30 07/12/17 19:15 78 20 98 Venturi Mask 4.0 30 07/12/17 18:20 77 20 99 Venturi Mask 4.0 30 07/12/17 16:00 98.4 69 18 138/71 99 07/12/17 15:30 91 20 98 Venturi Mask 4.0 30 07/12/17 15:11 90 20 98 Venturi Mask 4.0 30 07/12/17 14:25 137/71 Intake and Output 07/12/17 07/13/17 19:00 07:00 Intake Total 1305 ml 1610 ml Output Total 700 ml 700 ml Balance 605 ml 910 ml Free Water 60 ml 100 ml IV Total 525 ml 850 ml Tube Feeding 720 ml 660 ml Output Urine Total 700 ml 700 ml Laboratory Tests Test 07/13/17 04:00 White Blood Count 9.8 K/UL (4.8-10.8) Red Blood Count 2.91 M/UL (4.70-6.10) L Hemoglobin 8.2 G/DL (14.2-18.0) L Hematocrit 26.7 % (42.0-52.0) L Mean Corpuscular Volume 92 FL (80-99) Mean Corpuscular Hemoglobin 28.2 PG (27.0-31.0) Mean Corpuscular Hemoglobin Concent 30.8 G/DL (32.0-36.0) L Red Cell Distribution Width 14.9 % (11.6-14.8) H Platelet Count 528 K/UL (150-450) H Mean Platelet Volume 6.0 FL (6.5-10.1) L Neutrophils (%) (Auto) 83.6 % (45.0-75.0) H Lymphocytes (%) (Auto) 11.4 % (20.0-45.0) L Monocytes (%) (Auto) 3.9 % (1.0-10.0) Eosinophils (%) (Auto) 0.7 % (0.0-3.0) Basophils (%) (Auto) 0.4 % (0.0-2.0) Sodium Level 144 MMOL/L (136-145) Potassium Level 5.2 MMOL/L (3.5-5.1) H Chloride Level 107 MMOL/L (98-107) Carbon Dioxide Level 29 MMOL/L (21-32) Anion Gap 8 mmol/L (5-15) Blood Urea Nitrogen 87 mg/dL (7-18) H Creatinine 2.3 MG/DL (0.55-1.30) H Estimat Glomerular Filtration Rate 28.8 mL/min (>60) Glucose Level 325 MG/DL (74-106) #H Calcium Level 8.8 MG/DL (8.5-10.1) Total Bilirubin 0.2 MG/DL (0.2-1.0) Aspartate Amino Transf (AST/SGOT) 23 U/L (15-37) Alanine Aminotransferase (ALT/SGPT) 21 U/L (12-78) Alkaline Phosphatase 104 U/L (46-116) Pro-B-Type Natriuretic Peptide 5231 pg/mL (0-125) H Total Protein 6.2 G/DL (6.4-8.2) L Albumin 1.7 G/DL (3.4-5.0) L Globulin 4.5 g/dL Albumin/Globulin Ratio 0.4 (1.0-2.7) L Height (Feet): 5 Height (Inches): 9.00 Weight (Pounds): 205 Medications Current Medications Medications (Trade) Dose Ordered Sig/Willem Route PRN Reason Start Time Stop Time Status Last Admin Dose Admin Acetaminophen (Tylenol) 500 mg Q6H PRN ORAL MILD PAIN (1-4). NTE 3GM/DAY 07/06/17 19:01 07/30/17 19:00 Acetaminophen (Tylenol) 650 mg DAILY PRN ORAL Temp > 100.5 07/06/17 19:01 08/05/17 19:00 07/13/17 05:24 Acetaminophen (Tylenol) 650 mg Q6H PRN ORAL MODERATE PAIN (5-7) 07/06/17 19:01 07/30/17 19:00 Acetylcysteine (Mucomyst) 100 mg Q4HRT HHN 07/09/17 11:00 08/07/17 18:59 07/13/17 10:48 Amlodipine Besylate (Norvasc) 10 mg DAILY GT 07/07/17 09:00 07/21/17 08:59 07/13/17 10:00 Aspirin (ASA) 81 mg DAILY ORAL 07/07/17 09:00 07/30/17 08:59 07/13/17 10:00 Bisacodyl (Dulcolax) 10 mg DAILYPRN PRN RECTAL constipationIF MOM INEFFECTIVE 07/06/17 21:00 07/26/17 20:59 Clonidine HCl (Catapres Tab) 0.1 mg Q4H PRN GT bp of 160 syst and above 07/06/17 19:14 07/21/17 19:13 Collagenase (Santyl) 1 applic DAILY TOPIC 07/07/17 09:00 07/29/17 08:59 07/13/17 10:02 Dextrose (Dextrose 50%) STAT PRN IV Hypoglycemia 07/06/17 21:00 07/26/17 20:59 Famotidine (Pepcid) 20 mg DAILY ORAL 07/07/17 09:00 07/22/17 08:59 07/13/17 10:00 Fluconazole/ Sodium Chloride 100 ml @ 100 mls/hr Q24H IV 07/13/17 13:00 07/20/17 12:59 Heparin Sodium (Porcine) (Heparin 5000 units/ml) 5,000 units EVERY 12 HOURS SUBQ 07/06/17 21:00 07/21/17 08:59 07/13/17 10:08 Hydralazine HCl (Apresoline) 25 mg Q8HR GT 07/06/17 22:00 07/21/17 17:59 07/13/17 05:13 Insulin Aspart (NovoLOG) EVERY 6 HOURS SUBQ 07/07/17 00:00 07/21/17 06:29 07/13/17 12:31 Insulin Detemir (Levemir) 15 units QHS SUBQ 07/06/17 21:00 08/03/17 20:59 07/12/17 23:25 Levalbuterol HCl (Xopenex) 1.25 mg Q4HRT HHN 07/10/17 07:00 07/15/17 06:59 07/13/17 10:47 Levothyroxine Sodium (Synthroid) 50 mcg ACBREAKFAST GT 07/07/17 06:30 07/21/17 06:29 07/13/17 05:13 Metoprolol Tartrate (Lopressor) 100 mg EVERY 12 HOURS GT 07/06/17 21:00 08/03/17 20:59 07/13/17 10:00 Nitroglycerin (Ntg) 0.4 mg Q5M PRN SL CHEST PAIN 07/06/17 18:45 07/21/17 20:59 Sodium Chloride 1,000 ml @ 75 mls/hr [id number] IV 07/06/17 19:00 08/03/17 18:59 07/13/17 05:36 Assessment/Plan Problem List: (1) Respiratory failure with hypoxia Assessment & Plan: 62M respiratory failure with hypoxia, excessive secretions, aspiration, unable to protect airway naturally. Given history, current medical state, significant secretions and inability to clear them safely without aspirating patient would benefit from protected airway. given he is extubated and attempting to recover from recent illness would not intubate him again but would consider trach. a trach with the balloon up can protect him from constant aspiration and ensuing complications. he would likely benefit from it and without trach I cannot see how he can safely be discharged. will discuss with family and get their input. will follow with recs thank you for this consultation. ICD Codes: J96.91 - Respiratory failure, unspecified with hypoxia SNOMED: [id number] Qualifiers: Qualified Codes: J96.01 - Acute respiratory failure with hypoxia Status: not improved Judah Henao Jul 13, 2017 13:04
--- NOTE | 2017-07-13 14:40 | General Progress Note ---
Assessment/Plan Status: unchanged Assessment/Plan #. Anemia secondary to chronic disease. Anemia workup reviewed. --> Blood transfusion not required unless symptomatic or hgb <7 --> Trend cbc daily. #. Coagulopathy, malnutrition and vitamin K deficiency. --> administer vitamin K as needed. --> Goal INR between 2 and 3 --> Trend levels daily. #. Leukocytosis, likely secondary to underlying infection, sepsis, and antibiotics. --> has resolved, wbc count wnl --> S/P vancomycin. #. Thrombocytosis. #. Acute hypoxemia, requiring intubation. --> Currently extubated #. Acute kidney injury. #. Dysphagia with gastrostomy tube. #. Cerebrovascular accident with right-sided hemiplegia. #. Acute toxic metabolic encephalopathy. #. Hypothyroidism. Subjective Date patient seen: Jul 13, 2017 Constitutional: Denies: no symptoms, chills, diaphoresis, fever, malaise, weakness, other HEENT: Denies: no symptoms, eye pain, blurred vision, tearing, double vision, ear pain, ear discharge, nose pain, nose congestion, throat pain, throat swelling, mouth pain, mouth swelling, other Cardiovascular: Denies: no symptoms, chest pain, edema, irregular heart rate, lightheadedness, palpitations, syncope, other Respiratory: Denies: no symptoms, cough, orthopnea, shortness of breath, SOB with excertion, SOB at rest, sputum, stridor, wheezing, other Gastrointestinal/Abdominal: Denies: no symptoms, abdomen distended, abdominal pain, black stools, tarry stools, blood in stool, constipated, diarrhea, difficulty swallowing, nausea, poor appetite, poor fluid intake, rectal bleeding , vomiting, other Genitourinary: Denies: no symptoms, burning, discharge, frequency, flank pain, hematuria, incontinence, pain, urgency, other Allergies: Coded Allergies: No Known Allergies (Unverified , 05/11/17) Subjective Condition deteriorating. Some sob. No fever. Objective Last 24 Hour Vital Signs Date Time Temp Pulse Resp B/P (MAP) Pulse Ox O2 Delivery O2 Flow Rate FiO2 07/13/17 14:27 123/67 07/13/17 12:00 98.1 86 20 135/64 96 07/13/17 11:08 100 20 99 Venturi Mask 4.0 30 07/13/17 10:48 92 18 96 Venturi Mask 4.0 30 07/13/17 10:00 96 143/73 07/13/17 10:00 96 143/73 07/13/17 08:00 98.2 96 18 143/73 99 07/13/17 07:30 98.2 07/13/17 07:08 96 20 99 Venturi Mask 4.0 30 07/13/17 06:55 98 Venturi Mask 4.0 30 07/13/17 06:55 94 18 98 Venturi Mask 4.0 30 07/13/17 06:55 Venturi Mask 4.0 30 07/13/17 05:13 142/70 07/13/17 04:00 102.0 101 20 142/70 94 07/13/17 02:47 101 20 100 Venturi Mask 4.0 30 07/13/17 02:40 100 20 98 Venturi Mask 4.0 30 07/13/17 00:00 Venturi Mask 30 07/13/17 00:00 99.9 93 20 142/93 96 07/12/17 23:19 100 135/68 07/12/17 23:19 135/68 07/12/17 23:10 103 20 99 Venturi Mask 4.0 30 07/12/17 23:00 101 20 98 Venturi Mask 4.0 30 07/12/17 20:00 Venturi Mask 30 07/12/17 20:00 98.9 100 22 135/68 94 07/12/17 19:20 99 Venturi Mask 4.0 30 07/12/17 19:20 Venturi Mask 4.0 30 07/12/17 19:15 78 20 98 Venturi Mask 4.0 30 07/12/17 18:20 77 20 99 Venturi Mask 4.0 30 07/12/17 16:00 98.4 69 18 138/71 99 07/12/17 15:30 91 20 98 Venturi Mask 4.0 30 07/12/17 15:11 90 20 98 Venturi Mask 4.0 30 Intake and Output 07/12/17 07/13/17 19:00 07:00 Intake Total 1305 ml 1610 ml Output Total 700 ml 700 ml Balance 605 ml 910 ml Free Water 60 ml 100 ml IV Total 525 ml 850 ml Tube Feeding 720 ml 660 ml Output Urine Total 700 ml 700 ml Laboratory Tests 07/13/17 04:00: White Blood Count 9.8, Red Blood Count 2.91L, Hemoglobin 8.2L, Hematocrit 26.7L , Mean Corpuscular Volume 92, Mean Corpuscular Hemoglobin 28.2, Mean Corpuscular Hemoglobin Concent 30.8L, Red Cell Distribution Width 14.9H, Platelet Count 528H, Mean Platelet Volume 6.0L, Neutrophils (%) (Auto) 83.6H, Lymphocytes (%) (Auto) 11.4L, Monocytes (%) (Auto) 3.9, Eosinophils (%) (Auto) 0.7, Basophils (%) (Auto) 0.4, Sodium Level 144, Potassium Level 5.2H, Chloride Level 107, Carbon Dioxide Level 29, Anion Gap 8, Blood Urea Nitrogen 87H, Creatinine 2.3H, Estimat Glomerular Filtration Rate 28.8, Glucose Level 325#H, Calcium Level 8.8, Total Bilirubin 0.2, Aspartate Amino Transf (AST/SGOT) 23, Alanine Aminotransferase (ALT/SGPT) 21, Alkaline Phosphatase 104, Pro-B-Type Natriuretic Peptide 5231H, Total Protein 6.2L, Albumin 1.7L, Globulin 4.5, Albumin/Globulin Ratio 0.4L Height (Feet): 5 Height (Inches): 9.00 Weight (Pounds): 205 General Appearance: lethargic Respiratory/Chest: decreased breath sounds Dejan Copeland Jul 13, 2017 14:40
[2017-07-13] MEDS ORDERED: 1/2 NS 1000ml IV ONE (15:10)
--- NOTE | 2017-07-13 15:53 | Anethesia Preoperative Eval ---
Anesthesia Pre-op PMH/ROS General Date of Evaluation: Jul 13, 2017 Time of Evaluation: 16:00 Anesthesiologist: Rohit ASA Score: ASA 3 Mallampati Score Class I : Soft palate, uvula, fauces, pillars visible Class II: Soft palate, uvula, fauces visible Class III: Soft palate, base of uvula visible Class IV: Only hard plate visible Mallampati Classification: Class I Surgeon: Jacquelin Diagnosis: Ventilator Dependency Surgical Procedure: Tracheostomy Anesthesia History: none Family History: no anesthesia problems Allergies: Coded Allergies: No Known Allergies (Unverified , 05/11/17) Medications: see eMAR Anesthesia Pre-op Phys. Exam Physician Exam Last Vital Signs Date Time Temp Pulse Resp B/P (MAP) Pulse Ox O2 Delivery O2 Flow Rate FiO2 07/13/17 15:33 100 20 99 Venturi Mask 4.0 30 07/13/17 14:27 123/67 07/13/17 12:00 98.1 Constitutional: NAD Neurologic: CN 2-12 intact Respiratory: CTA Gastrointestinal: S/NT/ND Airway Exam Mallampati Score: Class II MO: full ROM: full Teeth: intact Anesthesia Pre-op A/P Labs Hematology Test 07/13/17 04:00 White Blood Count 9.8 K/UL (4.8-10.8) Red Blood Count 2.91 M/UL (4.70-6.10) L Hemoglobin 8.2 G/DL (14.2-18.0) L Hematocrit 26.7 % (42.0-52.0) L Mean Corpuscular Volume 92 FL (80-99) Mean Corpuscular Hemoglobin 28.2 PG (27.0-31.0) Mean Corpuscular Hemoglobin Concent 30.8 G/DL (32.0-36.0) L Red Cell Distribution Width 14.9 % (11.6-14.8) H Platelet Count 528 K/UL (150-450) H Mean Platelet Volume 6.0 FL (6.5-10.1) L Neutrophils (%) (Auto) 83.6 % (45.0-75.0) H Lymphocytes (%) (Auto) 11.4 % (20.0-45.0) L Monocytes (%) (Auto) 3.9 % (1.0-10.0) Eosinophils (%) (Auto) 0.7 % (0.0-3.0) Basophils (%) (Auto) 0.4 % (0.0-2.0) Chemistry Test 07/13/17 04:00 Sodium Level 144 MMOL/L (136-145) Potassium Level 5.2 MMOL/L (3.5-5.1) H Chloride Level 107 MMOL/L (98-107) Carbon Dioxide Level 29 MMOL/L (21-32) Anion Gap 8 mmol/L (5-15) Blood Urea Nitrogen 87 mg/dL (7-18) H Creatinine 2.3 MG/DL (0.55-1.30) H Estimat Glomerular Filtration Rate 28.8 mL/min (>60) Glucose Level 325 MG/DL (74-106) #H Calcium Level 8.8 MG/DL (8.5-10.1) Total Bilirubin 0.2 MG/DL (0.2-1.0) Aspartate Amino Transf (AST/SGOT) 23 U/L (15-37) Alanine Aminotransferase (ALT/SGPT) 21 U/L (12-78) Alkaline Phosphatase 104 U/L (46-116) Pro-B-Type Natriuretic Peptide 5231 pg/mL (0-125) H Total Protein 6.2 G/DL (6.4-8.2) L Albumin 1.7 G/DL (3.4-5.0) L Globulin 4.5 g/dL Albumin/Globulin Ratio 0.4 (1.0-2.7) L Studies Pre-op Studies: EKG, CXR, echo Risk Assessment & Plan Plan: GA Status Change Before Surgery: No Pre-Antibiotics Given Within 1 Hr of Incision: Ulisses Miller M.D. Jul 13, 2017 15:53
--- NOTE | 2017-07-13 16:15 | Pulmonology Progress Note ---
Assessment/Plan Problems: (1) Acute renal failure (2) Aspiration pneumonia (3) Feeding by G-tube (4) History of CVA (cerebrovascular accident) (5) BOOGIE (acute kidney injury) Assessment/Plan cxr better worsening continue IV fluids lots of secretions off bipap now renal failure ithe same pt will benefit form tracheostomy, since he can't control his secretions. Dr. Stauffer talked to pts sister who agreed with tracheostomy Subjective ROS Limited/Unobtainable: No Constitutional: Reports: no symptoms HEENT: Repors: no symptoms Respiratory: Reports: no symptoms Allergies: Coded Allergies: No Known Allergies (Unverified , 05/11/17) Objective Last 24 Hour Vital Signs Date Time Temp Pulse Resp B/P (MAP) Pulse Ox O2 Delivery O2 Flow Rate FiO2 07/13/17 15:33 100 20 99 Venturi Mask 4.0 30 07/13/17 15:20 102 20 96 Venturi Mask 4.0 30 07/13/17 14:27 123/67 07/13/17 12:00 98.1 86 20 135/64 96 07/13/17 11:08 100 20 99 Venturi Mask 4.0 30 07/13/17 10:48 92 18 96 Venturi Mask 4.0 30 07/13/17 10:00 96 143/73 07/13/17 10:00 96 143/73 07/13/17 08:00 98.2 96 18 143/73 99 07/13/17 07:30 98.2 07/13/17 07:08 96 20 99 Venturi Mask 4.0 30 07/13/17 06:55 98 Venturi Mask 4.0 30 07/13/17 06:55 94 18 98 Venturi Mask 4.0 30 07/13/17 06:55 Venturi Mask 4.0 30 07/13/17 05:13 142/70 07/13/17 04:00 102.0 101 20 142/70 94 07/13/17 02:47 101 20 100 Venturi Mask 4.0 30 07/13/17 02:40 100 20 98 Venturi Mask 4.0 30 07/13/17 00:00 Venturi Mask 30 07/13/17 00:00 99.9 93 20 142/93 96 07/12/17 23:19 100 135/68 07/12/17 23:19 135/68 07/12/17 23:10 103 20 99 Venturi Mask 4.0 30 07/12/17 23:00 101 20 98 Venturi Mask 4.0 30 07/12/17 20:00 Venturi Mask 30 07/12/17 20:00 98.9 100 22 135/68 94 07/12/17 19:20 99 Venturi Mask 4.0 30 07/12/17 19:20 Venturi Mask 4.0 30 07/12/17 19:15 78 20 98 Venturi Mask 4.0 30 07/12/17 18:20 77 20 99 Venturi Mask 4.0 30 Intake and Output 07/12/17 07/13/17 19:00 07:00 Intake Total 1305 ml 1610 ml Output Total 700 ml 700 ml Balance 605 ml 910 ml Free Water 60 ml 100 ml IV Total 525 ml 850 ml Tube Feeding 720 ml 660 ml Output Urine Total 700 ml 700 ml Objective General Appearance: no acute distress HEENT: normocephalic, atraumatic Respiratory/Chest: lungs clear, no respiratory distress, no accessory muscle use, loud rhonchi Cardiovascular: normal rate, no JVD, CL-femoral intact Abdomen: normal bowel sounds, soft, non tender Extremities: no edema Neurologic/Psychiatric: alert, responsive Musculoskeletal: normal muscle bulk Microbiology Date/Time Source Procedure Growth Status 07/12/17 08:20 Urine,Clean Catch Urine Culture - Preliminary NO GROWTH Resulted Laboratory Tests 07/13/17 04:00: White Blood Count 9.8, Red Blood Count 2.91L, Hemoglobin 8.2L, Hematocrit 26.7L , Mean Corpuscular Volume 92, Mean Corpuscular Hemoglobin 28.2, Mean Corpuscular Hemoglobin Concent 30.8L, Red Cell Distribution Width 14.9H, Platelet Count 528H, Mean Platelet Volume 6.0L, Neutrophils (%) (Auto) 83.6H, Lymphocytes (%) (Auto) 11.4L, Monocytes (%) (Auto) 3.9, Eosinophils (%) (Auto) 0.7, Basophils (%) (Auto) 0.4, Sodium Level 144, Potassium Level 5.2H, Chloride Level 107, Carbon Dioxide Level 29, Anion Gap 8, Blood Urea Nitrogen 87H, Creatinine 2.3H, Estimat Glomerular Filtration Rate 28.8, Glucose Level 325#H, Calcium Level 8.8, Total Bilirubin 0.2, Aspartate Amino Transf (AST/SGOT) 23, Alanine Aminotransferase (ALT/SGPT) 21, Alkaline Phosphatase 104, Pro-B-Type Natriuretic Peptide 5231H, Total Protein 6.2L, Albumin 1.7L, Globulin 4.5, Albumin/Globulin Ratio 0.4L Current Medications Medications (Trade) Dose Ordered Sig/Willem Route PRN Reason Start Time Stop Time Status Last Admin Dose Admin Acetaminophen (Tylenol) 500 mg Q6H PRN ORAL MILD PAIN (1-4). NTE 3GM/DAY 07/06/17 19:01 07/30/17 19:00 Acetaminophen (Tylenol) 650 mg DAILY PRN ORAL Temp > 100.5 07/06/17 19:01 08/05/17 19:00 07/13/17 05:24 Acetaminophen (Tylenol) 650 mg Q6H PRN ORAL MODERATE PAIN (5-7) 07/06/17 19:01 07/30/17 19:00 Acetylcysteine (Mucomyst) 100 mg Q4HRT HHN 07/09/17 11:00 08/07/17 18:59 07/13/17 15:21 Amlodipine Besylate (Norvasc) 10 mg DAILY GT 07/07/17 09:00 07/21/17 08:59 07/13/17 10:00 Aspirin (ASA) 81 mg DAILY ORAL 07/07/17 09:00 07/30/17 08:59 07/13/17 10:00 Bisacodyl (Dulcolax) 10 mg DAILYPRN PRN RECTAL constipationIF MOM INEFFECTIVE 07/06/17 21:00 07/26/17 20:59 Clonidine HCl (Catapres Tab) 0.1 mg Q4H PRN GT bp of 160 syst and above 07/06/17 19:14 07/21/17 19:13 Collagenase (Santyl) 1 applic DAILY TOPIC 07/07/17 09:00 07/29/17 08:59 07/13/17 10:02 Dextrose (Dextrose 50%) STAT PRN IV Hypoglycemia 07/06/17 21:00 07/26/17 20:59 Famotidine (Pepcid) 20 mg DAILY ORAL 07/07/17 09:00 07/22/17 08:59 07/13/17 10:00 Fluconazole/ Sodium Chloride 100 ml @ 100 mls/hr Q24H IV 07/13/17 13:00 07/20/17 12:59 07/13/17 13:37 Heparin Sodium (Porcine) (Heparin 5000 units/ml) 5,000 units EVERY 12 HOURS SUBQ 07/06/17 21:00 07/21/17 08:59 07/13/17 10:08 Hydralazine HCl (Apresoline) 25 mg Q8HR GT 07/06/17 22:00 07/21/17 17:59 07/13/17 14:27 Insulin Aspart (NovoLOG) EVERY 6 HOURS SUBQ 07/07/17 00:00 07/21/17 06:29 07/13/17 12:31 Insulin Detemir (Levemir) 15 units QHS SUBQ 07/06/17 21:00 08/03/17 20:59 07/12/17 23:25 Levalbuterol HCl (Xopenex) 1.25 mg Q4HRT HHN 07/10/17 07:00 07/15/17 06:59 07/13/17 15:20 Levothyroxine Sodium (Synthroid) 50 mcg ACBREAKFAST GT 07/07/17 06:30 07/21/17 06:29 07/13/17 05:13 Metoprolol Tartrate (Lopressor) 100 mg EVERY 12 HOURS GT 07/06/17 21:00 08/03/17 20:59 07/13/17 10:00 Nitroglycerin (Ntg) 0.4 mg Q5M PRN SL CHEST PAIN 07/06/17 18:45 07/21/17 20:59 Sodium Chloride 1,000 ml @ 75 mls/hr [id number] IV 07/06/17 19:00 08/03/17 18:59 07/13/17 05:36 JESSE ZAVALA Jul 13, 2017 16:15
[2017-07-13] MEDS: Levemir Flexpen SUBQ SCH (20:58)
[2017-07-14] MEDS: NovoLOG Insulin Flexpen SUBQ SCH ×4 (00:25→18:35)
[2017-07-14] MEDS: Levalbuterol Inh UD 1.25mg/0.5ml HHN SCH ×5 (03:34→19:51)
[2017-07-14 03:51] VITALS: BP 144/73
[2017-07-14] MEDS: HydrALAZINE 25mg tab GT SCH ×3 (05:40→23:28)
[2017-07-14] MEDS: Amikacin for Inhalation 2ML INH SCH (06:44)
[2017-07-14 07:07] LABS: HEMATOCRIT 24.8 % (42.0-52.0); HEMOGLOBIN 7.8 G/DL (14.2-18.0); MEAN CORPUSCULAR VOLUME 91 FL (80-99); PLATELET COUNT 515 K/UL (150-450); RED BLOOD COUNT 2.72 M/UL (4.70-6.10)
[2017-07-14 07:44] LABS: ALANINE AMINOTRANSFERASE 28 U/L (12-78); ALBUMIN 1.6 G/DL (3.4-5.0); ALBUMIN/GLOBULIN RATIO 0.3 (1.0-2.7); ALKALINE PHOSPHATASE 101 U/L (46-116); ANION GAP 7 mmol/L (5-15); ASPARTATE AMINO TRANSFERASE 28 U/L (15-37); BILIRUBIN,TOTAL 0.2 MG/DL (0.2-1.0); BLOOD UREA NITROGEN 78 mg/dL (7-18); CALCIUM 8.8 MG/DL (8.5-10.1); CARBON DIOXIDE 31 MMOL/L (21-32); CHLORIDE 108 MMOL/L (98-107); CREATININE 2.3 MG/DL (0.55-1.30); PHOSPHORUS 4.2 MG/DL (2.5-4.9); POTASSIUM 4.7 MMOL/L (3.5-5.1); SODIUM 146 MMOL/L (136-145)
[2017-07-14 08:36] VITALS: BP 139/63
[2017-07-14] MEDS: Heparin 5000 units/ml inj SUBQ SCH ×3 (09:00→20:45)
[2017-07-14] MEDS: Aspirin Baby 81mg ORAL SCH (09:49)
--- NOTE | 2017-07-14 10:05 | Pulmonology Progress Note ---
Assessment/Plan Problems: (1) Acute renal failure (2) Aspiration pneumonia (3) Feeding by G-tube (4) History of CVA (cerebrovascular accident) (5) BOOGIE (acute kidney injury) Assessment/Plan cxr worsening, increasing atelectasis continue IV fluids lots of secretions off bipap now renal failure ithe same pt will benefit form tracheostomy, since he can't control his secretions. Dr. Stauffer talked to pts sister who agreed with tracheostomy trach on sunday Subjective Interval Events: on Face mask Allergies: Coded Allergies: No Known Allergies (Unverified , 05/11/17) Objective Last 24 Hour Vital Signs Date Time Temp Pulse Resp B/P (MAP) Pulse Ox O2 Delivery O2 Flow Rate FiO2 07/14/17 09:50 102 139/63 07/14/17 09:50 102 139/63 07/14/17 08:36 98.4 102 20 139/63 96 07/14/17 08:10 98 20 98 Venturi Mask 4.0 30 07/14/17 07:57 92 22 96 Venturi Mask 4.0 30 07/14/17 07:57 96 Venturi Mask 4.0 30 07/14/17 07:57 Venturi Mask 4.0 30 07/14/17 05:40 144/73 07/14/17 03:51 98.4 104 20 144/73 96 Nasal Cannula 07/14/17 03:48 103 20 98 Venturi Mask 4.0 30 07/14/17 03:35 92 20 97 Venturi Mask 4.0 30 07/13/17 23:55 99.1 96 20 131/64 99 Room Air 07/13/17 23:45 100 20 98 Venturi Mask 4.0 30 07/13/17 23:31 93 20 98 Venturi Mask 4.0 30 07/13/17 21:07 143/72 07/13/17 20:50 104 143/72 07/13/17 20:10 99.9 104 20 143/72 95 Nasal Cannula 07/13/17 19:48 103 20 99 Venturi Mask 4.0 30 07/13/17 19:38 97 20 95 Venturi Mask 4.0 30 07/13/17 19:38 96 Venturi Mask 4.0 30 07/13/17 19:38 Venturi Mask 4.0 30 07/13/17 16:00 97.7 94 20 141/66 98 07/13/17 15:33 100 20 99 Venturi Mask 4.0 30 07/13/17 15:20 102 20 96 Venturi Mask 4.0 30 07/13/17 14:27 123/67 07/13/17 12:00 98.1 86 20 135/64 96 07/13/17 11:08 100 20 99 Venturi Mask 4.0 30 07/13/17 10:48 92 18 96 Venturi Mask 4.0 30 Intake and Output 07/13/17 07/14/17 19:00 07:00 Intake Total 135 ml 1585 ml Output Total 1000 ml 1150 ml Balance -865 ml 435 ml Free Water 100 ml IV Total 75 ml 825 ml Tube Feeding 60 ml 660 ml Output Urine Total 1000 ml 1150 ml # Bowel Movements 3 Objective General Appearance: no acute distress HEENT: normocephalic, atraumatic Respiratory/Chest: lungs clear, no respiratory distress, no accessory muscle use, loud rhonchi Cardiovascular: normal rate, no JVD, CL-femoral intact Abdomen: normal bowel sounds, soft, non tender Extremities: no edema Neurologic/Psychiatric: alert, responsive Musculoskeletal: normal muscle bulk Microbiology Date/Time Source Procedure Growth Status 07/12/17 08:20 Urine,Clean Catch Urine Culture - Preliminary NO GROWTH Resulted Laboratory Tests 07/14/17 04:35: White Blood Count 10.0, Red Blood Count 2.72L, Hemoglobin 7.8L, Hematocrit 24.8L , Mean Corpuscular Volume 91, Mean Corpuscular Hemoglobin 28.6, Mean Corpuscular Hemoglobin Concent 31.5L, Red Cell Distribution Width 15.0H, Platelet Count 515H, Mean Platelet Volume 6.2L, Neutrophils (%) (Auto) , Lymphocytes (%) (Auto) , Monocytes (%) (Auto) , Eosinophils (%) (Auto) , Basophils (%) (Auto) , Differential Total Cells Counted 100, Neutrophils % ( Manual) 87H, Lymphocytes % (Manual) 9L, Monocytes % (Manual) 3, Eosinophils % ( Manual) 1, Basophils % (Manual) 0, Band Neutrophils 0, Platelet Estimate IncreasedH, Platelet Morphology Normal, Hypochromasia 1+, Anisocytosis 1+, Sodium Level 146H, Potassium Level 4.7, Chloride Level 108H, Carbon Dioxide Level 31, Anion Gap 7, Blood Urea Nitrogen 78H, Creatinine 2.3H, Estimat Glomerular Filtration Rate 28.8, Glucose Level 224#H, Calcium Level 8.8, Phosphorus Level 4.2, Magnesium Level 2.5H, Total Bilirubin 0.2, Aspartate Amino Transf (AST/SGOT) 28, Alanine Aminotransferase (ALT/SGPT) 28, Alkaline Phosphatase 101, C-Reactive Protein, Quantitative 26.7H, Pro-B-Type Natriuretic Peptide 4671H, Total Protein 6.8, Albumin 1.6L, Globulin 5.2, Albumin/Globulin Ratio 0.3L Current Medications Medications (Trade) Dose Ordered Sig/Willem Route PRN Reason Start Time Stop Time Status Last Admin Dose Admin Acetaminophen (Tylenol) 500 mg Q6H PRN ORAL MILD PAIN (1-4). NTE 3GM/DAY 07/06/17 19:01 07/30/17 19:00 Acetaminophen (Tylenol) 650 mg DAILY PRN ORAL Temp > 100.5 07/06/17 19:01 08/05/17 19:00 07/13/17 05:24 Acetaminophen (Tylenol) 650 mg Q6H PRN ORAL MODERATE PAIN (5-7) 07/06/17 19:01 07/30/17 19:00 Acetylcysteine (Mucomyst) 100 mg Q4HRT HHN 07/09/17 11:00 08/07/17 18:59 07/14/17 07:57 Amlodipine Besylate (Norvasc) 10 mg DAILY GT 07/07/17 09:00 07/21/17 08:59 07/14/17 09:50 Aspirin (ASA) 81 mg DAILY ORAL 07/07/17 09:00 07/30/17 08:59 07/14/17 09:49 Bisacodyl (Dulcolax) 10 mg DAILYPRN PRN RECTAL constipationIF MOM INEFFECTIVE 07/06/17 21:00 07/26/17 20:59 Clonidine HCl (Catapres Tab) 0.1 mg Q4H PRN GT bp of 160 syst and above 07/06/17 19:14 07/21/17 19:13 Collagenase (Santyl) 1 applic DAILY TOPIC 07/07/17 09:00 07/29/17 08:59 07/13/17 10:02 Dextrose (Dextrose 50%) STAT PRN IV Hypoglycemia 07/06/17 21:00 07/26/17 20:59 Famotidine (Pepcid) 20 mg DAILY ORAL 07/07/17 09:00 07/22/17 08:59 07/14/17 09:49 Fluconazole/ Sodium Chloride 100 ml @ 100 mls/hr Q24H IV 07/13/17 13:00 07/20/17 12:59 07/13/17 13:37 Heparin Sodium (Porcine) (Heparin 5000 units/ml) 5,000 units EVERY 12 HOURS SUBQ 07/06/17 21:00 07/21/17 08:59 07/14/17 09:51 Hydralazine HCl (Apresoline) 25 mg Q8HR GT 07/06/17 22:00 07/21/17 17:59 07/14/17 05:40 Insulin Aspart (NovoLOG) EVERY 6 HOURS SUBQ 07/07/17 00:00 07/21/17 06:29 07/14/17 05:46 Insulin Detemir (Levemir) 15 units QHS SUBQ 07/06/17 21:00 08/03/17 20:59 07/13/17 20:58 Levalbuterol HCl (Xopenex) 1.25 mg Q4HRT HHN 07/10/17 07:00 07/15/17 06:59 07/14/17 07:57 Levothyroxine Sodium (Synthroid) 50 mcg ACBREAKFAST GT 07/07/17 06:30 07/21/17 06:29 07/14/17 05:40 Metoprolol Tartrate (Lopressor) 100 mg EVERY 12 HOURS GT 07/06/17 21:00 08/03/17 20:59 07/14/17 09:50 Nitroglycerin (Ntg) 0.4 mg Q5M PRN SL CHEST PAIN 07/06/17 18:45 07/21/17 20:59 Sodium Chloride 1,000 ml @ 75 mls/hr [id number] IV 07/06/17 19:00 08/03/17 18:59 07/13/17 20:49 JESSE ZAVALA Jul 14, 2017 10:05
--- NOTE | 2017-07-14 10:28 | General Progress Note ---
Progress Note Progress Note Surgery: spoke with sister who consents for patient. explained rational, risks, benefits , and alternatives to trach. she expressed understand. after all questions were answered she stated that she feels trach would likely benefit as well and consented to surgery. will schedule for trach sunday at 09:30. -npo p mn sunday night -iv fluids -consent Judah Henao Jul 14, 2017 10:28
[2017-07-14 11:26] VITALS: BP 140/65
--- NOTE | 2017-07-14 12:04 | Nephrology Progress Note ---
Assessment/Plan Problem List: (1) Acute renal failure (2) Respiratory failure requiring intubation (3) Urosepsis (4) Anemia Assessment: worsening (5) Hypoalbuminemia Assessment BOOGIE (acute kidney injury), Cr 2.3 higher H&H lower Respiratory failure requiring intubation Respiratory failure with hypoxia Aspiration pneumonia, Urosepsis Anemia ACS (acute coronary syndrome), Non St Elevation ME CHF (congestive heart failure) Acute encephalopathy GT feeding LLL atelectesis worsening, Plan plan: transfusion for low H&H avoid Nephrotoxics monitor renal parameters Keep BP and BS in check Optimize pulmonary and cardiac support Subjective ROS Limited/Unobtainable: No Constitutional: Reports: malaise Objective Objective Last 24 Hour Vital Signs Date Time Temp Pulse Resp B/P (MAP) Pulse Ox O2 Delivery O2 Flow Rate FiO2 07/14/17 11:26 98.2 99 20 140/65 96 07/14/17 11:12 85 22 97 Venturi Mask 4.0 30 07/14/17 11:01 83 20 96 Venturi Mask 4.0 30 07/14/17 09:50 102 139/63 07/14/17 09:50 102 139/63 07/14/17 08:36 98.4 102 20 139/63 96 07/14/17 08:10 98 20 98 Venturi Mask 4.0 30 07/14/17 07:57 92 22 96 Venturi Mask 4.0 30 07/14/17 07:57 96 Venturi Mask 4.0 30 07/14/17 07:57 Venturi Mask 4.0 30 07/14/17 05:40 144/73 07/14/17 03:51 98.4 104 20 144/73 96 Nasal Cannula 07/14/17 03:48 103 20 98 Venturi Mask 4.0 30 07/14/17 03:35 92 20 97 Venturi Mask 4.0 30 07/13/17 23:55 99.1 96 20 131/64 99 Room Air 07/13/17 23:45 100 20 98 Venturi Mask 4.0 30 07/13/17 23:31 93 20 98 Venturi Mask 4.0 30 07/13/17 21:07 143/72 07/13/17 20:50 104 143/72 07/13/17 20:10 99.9 104 20 143/72 95 Nasal Cannula 07/13/17 19:48 103 20 99 Venturi Mask 4.0 30 07/13/17 19:38 97 20 95 Venturi Mask 4.0 30 07/13/17 19:38 96 Venturi Mask 4.0 30 07/13/17 19:38 Venturi Mask 4.0 30 07/13/17 16:00 97.7 94 20 141/66 98 07/13/17 15:33 100 20 99 Venturi Mask 4.0 30 07/13/17 15:20 102 20 96 Venturi Mask 4.0 30 07/13/17 14:27 123/67 Intake and Output 07/13/17 07/14/17 19:00 07:00 Intake Total 135 ml 1585 ml Output Total 1000 ml 1150 ml Balance -865 ml 435 ml Free Water 100 ml IV Total 75 ml 825 ml Tube Feeding 60 ml 660 ml Output Urine Total 1000 ml 1150 ml # Bowel Movements 3 Laboratory Tests 07/14/17 04:35: White Blood Count 10.0, Red Blood Count 2.72L, Hemoglobin 7.8L, Hematocrit 24.8L , Mean Corpuscular Volume 91, Mean Corpuscular Hemoglobin 28.6, Mean Corpuscular Hemoglobin Concent 31.5L, Red Cell Distribution Width 15.0H, Platelet Count 515H, Mean Platelet Volume 6.2L, Neutrophils (%) (Auto) , Lymphocytes (%) (Auto) , Monocytes (%) (Auto) , Eosinophils (%) (Auto) , Basophils (%) (Auto) , Differential Total Cells Counted 100, Neutrophils % ( Manual) 87H, Lymphocytes % (Manual) 9L, Monocytes % (Manual) 3, Eosinophils % ( Manual) 1, Basophils % (Manual) 0, Band Neutrophils 0, Platelet Estimate IncreasedH, Platelet Morphology Normal, Hypochromasia 1+, Anisocytosis 1+, Sodium Level 146H, Potassium Level 4.7, Chloride Level 108H, Carbon Dioxide Level 31, Anion Gap 7, Blood Urea Nitrogen 78H, Creatinine 2.3H, Estimat Glomerular Filtration Rate 28.8, Glucose Level 224#H, Calcium Level 8.8, Phosphorus Level 4.2, Magnesium Level 2.5H, Total Bilirubin 0.2, Aspartate Amino Transf (AST/SGOT) 28, Alanine Aminotransferase (ALT/SGPT) 28, Alkaline Phosphatase 101, C-Reactive Protein, Quantitative 26.7H, Pro-B-Type Natriuretic Peptide 4671H, Total Protein 6.8, Albumin 1.6L, Globulin 5.2, Albumin/Globulin Ratio 0.3L Height (Feet): 5 Height (Inches): 9.00 Weight (Pounds): 187 General Appearance: no apparent distress, lethargic Respiratory/Chest: decreased breath sounds Abdomen: distended Objective no other changes GARCÍA READ Jul 14, 2017 12:04
--- NOTE | 2017-07-14 12:08 | Infectious Diseases Prog Note ---
Assessment/Plan Assessment/Plan A: Fever PSA Pneumonia Sepsis 2ry to HCAP, improving CXR 07/13 Increasing right basilar atelectasis -sp cx: +3 MDR PSA (S. Cefepime, Gentamicin/Amikacin) -u./a WBC 5-10, nit neg, leuk est +1, ucx 10-20K C. albicans (colonzier) -rectal wound cx: ESBL E.coli, PsA (colonizers)- no signs of infection 07/22 CoNS bacteremia- suspect contaminant 06/20 +07/22, 06/21 Neg x4 ? UTI : UCx : chinedu ( Albican and Glab. ) leukocytosis-resolved Lactic acidosis- resolved Cdiff neg 06/25 -Neg: HIV ag/ab, RPR, CrAg serum, FTA-ab Acute hypoxic resp failure s/p intubation 06/20- s/p extubation 06/25 BOOGIE Recent gastritis (dx by EGD) Hx of encephalopathy -05/22 CT head: No evidence of acute intracranial hemorrhage, mass effect or cortical edema. MRI may be obtained for more sensitive evaluation as clinically indicated. Stable chronic infarct in the right frontal lobe. Cerebral and cerebellar atrophy greater than expected for age. Clinical correlation recommended. Mild periventricular hypoattenuation suggestive of chronic ischemic microvascular changes. -previous admission:nical correlation recommended. Mild periventricular hypoattenuation suggestive of chronic ischemic microvascular changes. Small area of right frontal encephalomalacia suggestive of old infarct. -UDS neg -TSH normal -Brain MRI: Chronic and age-related changes. Old right frontal infarct. Negative for acute intracranial bleed, mass effect, or acute infarct hx of VRE and MRSA colonization HTN CKD DM2 bipolar dz/schizophrenia GERD cardiac arrhythmia Dementia CAD with prior MD MS osteoporosis asthma VIt D def Hypothyroidism HLD dysphagia s/p GT R MCA CVA with left hemiplegia Plan: - IV Diflucan d# , ( may change to Eraxis if fever does not improve ) add Amikacin INH d# 06/27 for Resp increased secretions ( Hx of MDR PSA ) - 07/09 SP Cefepime d# , and Amikacin d# / -06/25 SP IV vancomycin #5, Amikacin #5 -06/23 SP Meropenem #3 -06/21 SP Amikacin x1 - Blood cx - sputum Cx -Monitor CBC/BMP, temperatures -aspiration precautions - wound care - cxray - Trach for controll of resp secretions Subjective Allergies: Coded Allergies: No Known Allergies (Unverified , 05/11/17) Subjective febrile has increase of secretions Objective Vital Signs Last 24 Hour Vital Signs Date Time Temp Pulse Resp B/P (MAP) Pulse Ox O2 Delivery O2 Flow Rate FiO2 07/14/17 11:26 98.2 99 20 140/65 96 07/14/17 11:12 85 22 97 Venturi Mask 4.0 30 07/14/17 11:01 83 20 96 Venturi Mask 4.0 30 07/14/17 09:50 102 139/63 07/14/17 09:50 102 139/63 07/14/17 08:36 98.4 102 20 139/63 96 07/14/17 08:10 98 20 98 Venturi Mask 4.0 30 07/14/17 07:57 92 22 96 Venturi Mask 4.0 30 07/14/17 07:57 96 Venturi Mask 4.0 30 07/14/17 07:57 Venturi Mask 4.0 30 07/14/17 05:40 144/73 07/14/17 03:51 98.4 104 20 144/73 96 Nasal Cannula 07/14/17 03:48 103 20 98 Venturi Mask 4.0 30 07/14/17 03:35 92 20 97 Venturi Mask 4.0 30 07/13/17 23:55 99.1 96 20 131/64 99 Room Air 07/13/17 23:45 100 20 98 Venturi Mask 4.0 30 07/13/17 23:31 93 20 98 Venturi Mask 4.0 30 07/13/17 21:07 143/72 07/13/17 20:50 104 143/72 07/13/17 20:10 99.9 104 20 143/72 95 Nasal Cannula 07/13/17 19:48 103 20 99 Venturi Mask 4.0 30 07/13/17 19:38 97 20 95 Venturi Mask 4.0 30 07/13/17 19:38 96 Venturi Mask 4.0 30 07/13/17 19:38 Venturi Mask 4.0 30 07/13/17 16:00 97.7 94 20 141/66 98 07/13/17 15:33 100 20 99 Venturi Mask 4.0 30 07/13/17 15:20 102 20 96 Venturi Mask 4.0 30 07/13/17 14:27 123/67 Height (Feet): 5 Height (Inches): 9.00 Weight (Pounds): 187 HEENT: atraumatic Respiratory/Chest: lungs clear Cardiovascular: normal peripheral pulses Abdomen: no organomegaly Microbiology Date/Time Source Procedure Growth Status 07/12/17 08:20 Urine,Clean Catch Urine Culture - Final Chinedu Albicans Chinedu Glabrata Complete Laboratory Tests Test 07/14/17 04:35 White Blood Count 10.0 K/UL (4.8-10.8) Red Blood Count 2.72 M/UL (4.70-6.10) L Hemoglobin 7.8 G/DL (14.2-18.0) L Hematocrit 24.8 % (42.0-52.0) L Mean Corpuscular Volume 91 FL (80-99) Mean Corpuscular Hemoglobin 28.6 PG (27.0-31.0) Mean Corpuscular Hemoglobin Concent 31.5 G/DL (32.0-36.0) L Red Cell Distribution Width 15.0 % (11.6-14.8) H Platelet Count 515 K/UL (150-450) H Mean Platelet Volume 6.2 FL (6.5-10.1) L Neutrophils (%) (Auto) % (45.0-75.0) Lymphocytes (%) (Auto) % (20.0-45.0) Monocytes (%) (Auto) % (1.0-10.0) Eosinophils (%) (Auto) % (0.0-3.0) Basophils (%) (Auto) % (0.0-2.0) Differential Total Cells Counted 100 Neutrophils % (Manual) 87 % (45-75) H Lymphocytes % (Manual) 9 % (20-45) L Monocytes % (Manual) 3 % (1-10) Eosinophils % (Manual) 1 % (0-3) Basophils % (Manual) 0 % (0-2) Band Neutrophils 0 % (0-8) Platelet Estimate Increased H Platelet Morphology Normal Hypochromasia 1+ Anisocytosis 1+ Sodium Level 146 MMOL/L (136-145) H Potassium Level 4.7 MMOL/L (3.5-5.1) Chloride Level 108 MMOL/L (98-107) H Carbon Dioxide Level 31 MMOL/L (21-32) Anion Gap 7 mmol/L (5-15) Blood Urea Nitrogen 78 mg/dL (7-18) H Creatinine 2.3 MG/DL (0.55-1.30) H Estimat Glomerular Filtration Rate 28.8 mL/min (>60) Glucose Level 224 MG/DL (74-106) #H Calcium Level 8.8 MG/DL (8.5-10.1) Phosphorus Level 4.2 MG/DL (2.5-4.9) Magnesium Level 2.5 MG/DL (1.8-2.4) H Total Bilirubin 0.2 MG/DL (0.2-1.0) Aspartate Amino Transf (AST/SGOT) 28 U/L (15-37) Alanine Aminotransferase (ALT/SGPT) 28 U/L (12-78) Alkaline Phosphatase 101 U/L (46-116) C-Reactive Protein, Quantitative 26.7 mg/dL (0.00-0.90) H Pro-B-Type Natriuretic Peptide 4671 pg/mL (0-125) H Total Protein 6.8 G/DL (6.4-8.2) Albumin 1.6 G/DL (3.4-5.0) L Globulin 5.2 g/dL Albumin/Globulin Ratio 0.3 (1.0-2.7) L Current Medications Medications (Trade) Dose Ordered Sig/Willem Route PRN Reason Start Time Stop Time Status Last Admin Dose Admin Acetaminophen (Tylenol) 500 mg Q6H PRN ORAL MILD PAIN (1-4). NTE 3GM/DAY 07/06/17 19:01 07/30/17 19:00 Acetaminophen (Tylenol) 650 mg DAILY PRN ORAL Temp > 100.5 07/06/17 19:01 08/05/17 19:00 07/13/17 05:24 Acetaminophen (Tylenol) 650 mg Q6H PRN ORAL MODERATE PAIN (5-7) 07/06/17 19:01 07/30/17 19:00 Acetylcysteine (Mucomyst) 100 mg Q4HRT HHN 07/09/17 11:00 08/07/17 18:59 07/14/17 07:57 Amlodipine Besylate (Norvasc) 10 mg DAILY GT 07/07/17 09:00 2/3/18 08:59 07/14/17 09:50 Aspirin (ASA) 81 mg DAILY ORAL 07/07/17 09:00 07/30/17 08:59 07/14/17 09:49 Bisacodyl (Dulcolax) 10 mg DAILYPRN PRN RECTAL constipationIF MOM INEFFECTIVE 07/06/17 21:00 07/26/17 20:59 Clonidine HCl (Catapres Tab) 0.1 mg Q4H PRN GT bp of 160 syst and above 07/06/17 19:14 07/21/17 19:13 Collagenase (Santyl) 1 applic DAILY TOPIC 07/07/17 09:00 07/29/17 08:59 07/14/17 10:40 Dextrose (Dextrose 50%) STAT PRN IV Hypoglycemia 07/06/17 21:00 07/26/17 20:59 Famotidine (Pepcid) 20 mg DAILY ORAL 07/07/17 09:00 07/22/17 08:59 07/14/17 09:49 Fluconazole/ Sodium Chloride 100 ml @ 100 mls/hr Q24H IV 07/13/17 13:00 07/20/17 12:59 07/13/17 13:37 Heparin Sodium (Porcine) (Heparin 5000 units/ml) 5,000 units EVERY 12 HOURS SUBQ 07/06/17 21:00 07/21/17 08:59 07/13/17 10:08 Hydralazine HCl (Apresoline) 25 mg Q8HR GT 07/06/17 22:00 07/21/17 17:59 07/14/17 05:40 Insulin Aspart (NovoLOG) EVERY 6 HOURS SUBQ 07/07/17 00:00 07/21/17 06:29 07/14/17 05:46 Insulin Detemir (Levemir) 15 units QHS SUBQ 07/06/17 21:00 08/03/17 20:59 07/13/17 20:58 Levalbuterol HCl (Xopenex) 1.25 mg Q4HRT HHN 07/10/17 07:00 07/15/17 06:59 07/14/17 10:59 Levothyroxine Sodium (Synthroid) 50 mcg ACBREAKFAST GT 07/07/17 06:30 07/21/17 06:29 07/14/17 05:40 Metoprolol Tartrate (Lopressor) 100 mg EVERY 12 HOURS GT 07/06/17 21:00 08/03/17 20:59 07/14/17 09:50 Nitroglycerin (Ntg) 0.4 mg Q5M PRN SL CHEST PAIN 07/06/17 18:45 07/21/17 20:59 Sodium Chloride 1,000 ml @ 75 mls/hr [id number] IV 07/06/17 19:00 08/03/17 18:59 07/13/17 20:49 REJI HOANG M.D. Jul 14, 2017 12:08
[2017-07-14 15:58] VITALS: BP 145/75
[2017-07-14] MEDS ORDERED: 1/2 NS 1000ml IV ONE (16:09)
[2017-07-14 20:00] VITALS: BP 124/69
--- NOTE | 2017-07-14 20:52 | General Progress Note ---
Assessment/Plan Status: unchanged Assessment/Plan #. Anemia secondary to chronic disease. --> Anemia workup reviewed. --> Blood transfusion not required unless symptomatic or hgb <7. Currently 7.8 --> Trend cbc daily. #. Coagulopathy, malnutrition and vitamin K deficiency. --> administer vitamin K as needed. --> Goal INR between 2 and 3 --> Trend levels daily. #. Leukocytosis, likely secondary to underlying infection, sepsis, and antibiotics. --> has resolved, wbc count wnl --> S/P vancomycin. #. Thrombocytosis. #. Acute hypoxemia, requiring intubation. --> Currently extubated #. Acute kidney injury. #. Dysphagia with gastrostomy tube. #. Cerebrovascular accident with right-sided hemiplegia. #. Acute toxic metabolic encephalopathy. #. Hypothyroidism. Subjective Date patient seen: Jul 14, 2017 Constitutional: Denies: no symptoms, chills, diaphoresis, fever, malaise, weakness, other HEENT: Denies: no symptoms, eye pain, blurred vision, tearing, double vision, ear pain, ear discharge, nose pain, nose congestion, throat pain, throat swelling, mouth pain, mouth swelling, other Cardiovascular: Denies: no symptoms, chest pain, edema, irregular heart rate, lightheadedness, palpitations, syncope, other Respiratory: Denies: no symptoms, cough, orthopnea, shortness of breath, SOB with excertion, SOB at rest, sputum, stridor, wheezing, other Gastrointestinal/Abdominal: Denies: no symptoms, abdomen distended, abdominal pain, black stools, tarry stools, blood in stool, constipated, diarrhea, difficulty swallowing, nausea, poor appetite, poor fluid intake, rectal bleeding , vomiting, other Genitourinary: Denies: no symptoms, burning, discharge, frequency, flank pain, hematuria, incontinence, pain, urgency, other Hematologic/Lymphatic: Reports: anemia Allergies: Coded Allergies: No Known Allergies (Unverified , 05/11/17) Subjective Pending trach. Some sob. No fever. Resting in bed. Objective Last 24 Hour Vital Signs Date Time Temp Pulse Resp B/P (MAP) Pulse Ox O2 Delivery O2 Flow Rate FiO2 07/14/17 20:00 98.2 104 21 124/69 91 Room Air 07/14/17 19:59 102 24 98 Venturi Mask 4.0 30 07/14/17 19:55 Venturi Mask 4.0 30 07/14/17 19:55 95 Venturi Mask 4.0 30 07/14/17 19:52 98 22 95 Venturi Mask 4.0 30 07/14/17 15:58 98.6 94 20 145/75 98 07/14/17 15:05 94 24 97 Venturi Mask 4.0 30 07/14/17 14:56 91 22 94 Venturi Mask 4.0 30 07/14/17 14:32 140/65 07/14/17 11:26 98.2 99 20 140/65 96 07/14/17 11:12 85 22 97 Venturi Mask 4.0 30 07/14/17 11:01 83 20 96 Venturi Mask 4.0 30 07/14/17 09:50 102 139/63 07/14/17 09:50 102 139/63 07/14/17 08:36 98.4 102 20 139/63 96 07/14/17 08:10 98 20 98 Venturi Mask 4.0 30 07/14/17 07:57 92 22 96 Venturi Mask 4.0 30 07/14/17 07:57 96 Venturi Mask 4.0 30 07/14/17 07:57 Venturi Mask 4.0 30 07/14/17 05:40 144/73 07/14/17 03:51 98.4 104 20 144/73 96 Nasal Cannula 07/14/17 03:48 103 20 98 Venturi Mask 4.0 30 07/14/17 03:35 92 20 97 Venturi Mask 4.0 30 07/13/17 23:55 99.1 96 20 131/64 99 Room Air 07/13/17 23:45 100 20 98 Venturi Mask 4.0 30 07/13/17 23:31 93 20 98 Venturi Mask 4.0 30 07/13/17 21:07 143/72 Intake and Output 07/13/17 07/14/17 19:00 07:00 Intake Total 135 ml 1585 ml Output Total 1000 ml 1150 ml Balance -865 ml 435 ml Free Water 100 ml IV Total 75 ml 825 ml Tube Feeding 60 ml 660 ml Output Urine Total 1000 ml 1150 ml # Bowel Movements 3 Laboratory Tests 07/14/17 04:35: White Blood Count 10.0, Red Blood Count 2.72L, Hemoglobin 7.8L, Hematocrit 24.8L , Mean Corpuscular Volume 91, Mean Corpuscular Hemoglobin 28.6, Mean Corpuscular Hemoglobin Concent 31.5L, Red Cell Distribution Width 15.0H, Platelet Count 515H, Mean Platelet Volume 6.2L, Neutrophils (%) (Auto) , Lymphocytes (%) (Auto) , Monocytes (%) (Auto) , Eosinophils (%) (Auto) , Basophils (%) (Auto) , Differential Total Cells Counted 100, Neutrophils % ( Manual) 87H, Lymphocytes % (Manual) 9L, Monocytes % (Manual) 3, Eosinophils % ( Manual) 1, Basophils % (Manual) 0, Band Neutrophils 0, Platelet Estimate IncreasedH, Platelet Morphology Normal, Hypochromasia 1+, Anisocytosis 1+, Sodium Level 146H, Potassium Level 4.7, Chloride Level 108H, Carbon Dioxide Level 31, Anion Gap 7, Blood Urea Nitrogen 78H, Creatinine 2.3H, Estimat Glomerular Filtration Rate 28.8, Glucose Level 224#H, Calcium Level 8.8, Phosphorus Level 4.2, Magnesium Level 2.5H, Total Bilirubin 0.2, Aspartate Amino Transf (AST/SGOT) 28, Alanine Aminotransferase (ALT/SGPT) 28, Alkaline Phosphatase 101, C-Reactive Protein, Quantitative 26.7H, Pro-B-Type Natriuretic Peptide 4671H, Total Protein 6.8, Albumin 1.6L, Globulin 5.2, Albumin/Globulin Ratio 0.3L Height (Feet): 5 Height (Inches): 9.00 Weight (Pounds): 187 General Appearance: lethargic Respiratory/Chest: decreased breath sounds Abdomen: soft Edema: trace edema Dejan Copeland Jul 14, 2017 20:52
[2017-07-14] MEDS: Levemir Flexpen SUBQ SCH (21:19)
[2017-07-15] VITALS: BP 129/64
[2017-07-15] MEDS: NovoLOG Insulin Flexpen SUBQ SCH ×4 (00:31→19:40)
[2017-07-15] MEDS: Levalbuterol Inh UD 1.25mg/0.5ml HHN SCH ×5 (01:07→19:38)
[2017-07-15 04:00] VITALS: BP 141/72
[2017-07-15] MEDS: HydrALAZINE 25mg tab GT SCH ×3 (06:46→23:29)
--- NOTE | 2017-07-15 06:48 | Progress Note ---
DATE: 07/14/2017 NOTE: POOR AUDIO SUBJECTIVE: The patient's condition deteriorated. His mental status is unstable. He is in and out of consciousness and has episode of respiratory distress due to hypersecretory state of his saliva. . OBJECTIVE: VITAL SIGNS: His blood pressure is 124/89, his pulse is 104, respirations 21, and temperature 98.2 degrees. HEENT: Eyes were normal. ENT, mucous membranes were moist and intact. NECK: Supple with no JVD without lymph nodes. LUNGS: Clear bilateral rhonchi over the right and the left and the bases. HEART: Normal sounds beats. There is tachycardia at rest. ABDOMEN: Soft and nontender with normal bowel sounds. Gastrostomy site is clean. EXTREMITIES: Warm without cyanosis, clubbing, or edema. LABORATORY DATA: His hemoglobin is 7.8, hematocrit 24.8 with MCV of 91, WBC of 10.0, and platelets are 515,000. His BUN and creatinine are 78 and 2.3, respectively. His sodium is , potassium 4.7, chloride 108, and CO2 is 31. His calcium is 8.8. His phosphorus is 4.2 and magnesium is 3.5. is 26. His ProBNP is 4600. His albumin is 1.6 and total protein is 6.8. DIAGNOSTIC DATA: Chest x-ray showed increased right basilar atelectasis and cardiomegaly. IMPRESSION AND PLAN: After discussion with the rigging man and with the patient's sister, it was the patient undergo a tracheostomy to protect his airway and he will need mechanical ventilation. the patient was scheduled to undergo tracheostomy on . In the meantime, his hemoglobin and hematocrit 9.0 and 28.9 on 07/11/2017. It is now 7.8 and 24.8 on 07/14/2017. Repeat laboratory tests will be done in the morning. the patient does not have any . PT, PTT, , iron binding capacity, and ferritin will be requested. Martina Morales M.D. DR: Keon JOB#: [id number] CC:
[2017-07-15 07:23] LABS: ALANINE AMINOTRANSFERASE 33 U/L (12-78); ALBUMIN 1.7 G/DL (3.4-5.0); ALBUMIN/GLOBULIN RATIO 0.3 (1.0-2.7); ALKALINE PHOSPHATASE 111 U/L (46-116); ANION GAP 5 mmol/L (5-15); ASPARTATE AMINO TRANSFERASE 27 U/L (15-37); BASOPHILS % (AUTO) 0.9 % (0.0-2.0); BILIRUBIN,TOTAL 0.2 MG/DL (0.2-1.0); BLOOD UREA NITROGEN 69 mg/dL (7-18); CALCIUM 9.2 MG/DL (8.5-10.1); CARBON DIOXIDE 31 MMOL/L (21-32); CHLORIDE 110 MMOL/L (98-107); CREATININE 2.2 MG/DL (0.55-1.30); EOSINOPHILS % (AUTO) 1.5 % (0.0-3.0); HEMATOCRIT 28.8 % (42.0-52.0); LYMPHOCYTES % (AUTO) 9.7 % (20.0-45.0); MEAN CORPUSCULAR VOLUME 90 FL (80-99); MONOCYTES % (AUTO) 3.9 % (1.0-10.0); NEUTROPHILS % (AUTO) 83.9 % (45.0-75.0); PHOSPHORUS 4.4 MG/DL (2.5-4.9); PLATELET COUNT 555 K/UL (150-450); POTASSIUM 4.6 MMOL/L (3.5-5.1); RED BLOOD COUNT 3.19 M/UL (4.70-6.10); SODIUM 146 MMOL/L (136-145); WHITE BLOOD COUNT 9.7 K/UL (4.8-10.8)
[2017-07-15 07:40] LABS: IRON 19 ug/dL (50-175)
[2017-07-15 07:49] LABS: ANION GAP 8 mmol/L (5-15); BLOOD UREA NITROGEN 69 mg/dL (7-18); CALCIUM 9.1 MG/DL (8.5-10.1); CARBON DIOXIDE 30 MMOL/L (21-32); CHLORIDE 109 MMOL/L (98-107); CREATININE 2.3 MG/DL (0.55-1.30); POTASSIUM 4.7 MMOL/L (3.5-5.1); SODIUM 146 MMOL/L (136-145)
[2017-07-15 08:00] VITALS: BP 155/77
[2017-07-15] MEDS: Heparin 5000 units/ml inj SUBQ SCH ×2 (09:00→21:00)
[2017-07-15] MEDS: Amikacin for Inhalation 2ML INH SCH ×2 (10:17→21:20)
--- NOTE | 2017-07-15 10:46 | Nephrology Progress Note ---
Assessment/Plan Problem List: (1) Acute renal failure (2) Respiratory failure requiring intubation (3) Urosepsis (4) Anemia Assessment: worsening (5) Hypoalbuminemia Assessment BOOGIE (acute kidney injury), Cr 2.3 higher H&H lower Respiratory failure requiring intubation Respiratory failure with hypoxia Aspiration pneumonia, Urosepsis Anemia ACS (acute coronary syndrome), Non St Elevation [place] CHF (congestive heart failure) Acute encephalopathy GT feeding LLL atelectesis worsening, Plan plan: transfusion for low H&H avoid Nephrotoxics monitor renal parameters Keep BP and BS in check Optimize pulmonary and cardiac support Subjective ROS Limited/Unobtainable: No Constitutional: Reports: malaise, weakness Objective Objective Last 24 Hour Vital Signs Date Time Temp Pulse Resp B/P (MAP) Pulse Ox O2 Delivery O2 Flow Rate FiO2 07/15/17 10:30 94 20 98 Venturi Mask 4.0 30 07/15/17 10:27 94 20 98 Venturi Mask 4.0 30 07/15/17 10:18 91 16 96 Venturi Mask 4.0 30 07/15/17 10:17 30 07/15/17 10:17 91 16 96 Venturi Mask 4.0 30 07/15/17 08:00 98.4 101 20 155/77 94 Venturi Mask 07/15/17 07:59 Venturi Mask 4.0 30 07/15/17 07:59 96 Venturi Mask 4.0 30 07/15/17 07:59 92 16 95 Venturi Mask 4.0 30 07/15/17 06:46 141/72 07/15/17 05:45 109 24 99 Venturi Mask 4.0 30 07/15/17 05:33 108 24 95 Venturi Mask 4.0 30 07/15/17 04:00 98.1 98 21 141/72 91 Nasal Cannula 07/15/17 01:20 105 24 98 Venturi Mask 4.0 30 07/15/17 01:07 101 22 96 Venturi Mask 4.0 30 07/15/17 00:00 98.0 91 19 129/64 92 Nasal Cannula 07/14/17 23:28 124/64 07/14/17 21:18 104 124/69 07/14/17 20:00 98.2 104 21 124/69 91 Room Air 07/14/17 19:59 102 24 98 Venturi Mask 4.0 30 07/14/17 19:55 Venturi Mask 4.0 30 07/14/17 19:55 95 Venturi Mask 4.0 30 07/14/17 19:52 98 22 95 Venturi Mask 4.0 30 07/14/17 15:58 98.6 94 20 145/75 98 07/14/17 15:05 94 24 97 Venturi Mask 4.0 30 07/14/17 14:56 91 22 94 Venturi Mask 4.0 30 07/14/17 14:32 140/65 07/14/17 11:26 98.2 99 20 140/65 96 07/14/17 11:12 85 22 97 Venturi Mask 4.0 30 07/14/17 11:01 83 20 96 Venturi Mask 4.0 30 Intake and Output 07/14/17 07/15/17 19:00 07:00 Intake Total 610 ml 690 ml Output Total 1000 ml 1550 ml Balance -390 ml -860 ml IV Total 550 ml 150 ml Tube Feeding 60 ml 540 ml Output Urine Total 1000 ml 1550 ml # Voids 1 Laboratory Tests 07/15/17 06:20: White Blood Count 9.7, Red Blood Count 3.19L, Hemoglobin 9.0L, Hematocrit 28.8L , Mean Corpuscular Volume 90, Mean Corpuscular Hemoglobin 28.2, Mean Corpuscular Hemoglobin Concent 31.3L, Red Cell Distribution Width 14.0, Platelet Count 555H, Mean Platelet Volume 6.2L, Neutrophils (%) (Auto) 83.9H, Lymphocytes (%) (Auto) 9.7L, Monocytes (%) (Auto) 3.9, Eosinophils (%) (Auto) 1.5, Basophils (%) (Auto) 0.9, Prothrombin Time 10.9, Prothromb Time International Ratio 1.0, Activated Partial Thromboplast Time 27, Sodium Level 146H, Potassium Level 4.7, Chloride Level 109H, Carbon Dioxide Level 30, Anion Gap 8, Blood Urea Nitrogen 69H, Creatinine 2.3H, Estimat Glomerular Filtration Rate 28.8, Glucose Level 214H, Calcium Level 9.1, Phosphorus Level 4.4, Magnesium Level 2.6H, Iron Level 19L, Total Bilirubin 0.2, Aspartate Amino Transf (AST/SGOT) 27, Alanine Aminotransferase (ALT/SGPT) 33, Alkaline Phosphatase 111, Total Protein 7.1, Albumin 1.7L, Globulin 5.4, Albumin/ Globulin Ratio 0.3L Height (Feet): 5 Height (Inches): 9.00 Weight (Pounds): 202 General Appearance: no apparent distress, lethargic Cardiovascular: tachycardia Respiratory/Chest: decreased breath sounds Abdomen: distended Objective no other changes GARCÍA READ Jul 15, 2017 10:45
[2017-07-15] MEDS: Aspirin Baby 81mg ORAL SCH (10:57)
--- NOTE | 2017-07-15 11:46 | Pulmonology Progress Note ---
Assessment/Plan Problems: (1) Acute renal failure (2) Aspiration pneumonia (3) Feeding by G-tube (4) History of CVA (cerebrovascular accident) (5) BOOGIE (acute kidney injury) Assessment/Plan cxr worsening, increasing atelectasis continue IV fluids lots of secretions off bipap now renal failure ithe same pt will benefit form tracheostomy, since he can't control his secretions. Dr. Stauffer talked to pts sister who agreed with tracheostomy trach on sunday all reviewed Subjective ROS Limited/Unobtainable: No Interval Events: awake, comfortable Allergies: Coded Allergies: No Known Allergies (Unverified , 05/11/17) Objective Last 24 Hour Vital Signs Date Time Temp Pulse Resp B/P (MAP) Pulse Ox O2 Delivery O2 Flow Rate FiO2 07/15/17 10:58 94 155/77 07/15/17 10:58 94 155/77 07/15/17 10:30 94 20 98 Venturi Mask 4.0 30 07/15/17 10:27 94 20 98 Venturi Mask 4.0 30 07/15/17 10:18 91 16 96 Venturi Mask 4.0 30 07/15/17 10:17 30 07/15/17 10:17 91 16 96 Venturi Mask 4.0 30 07/15/17 08:00 98.4 101 20 155/77 94 Venturi Mask 07/15/17 07:59 Venturi Mask 4.0 30 07/15/17 07:59 96 Venturi Mask 4.0 30 07/15/17 07:59 92 16 95 Venturi Mask 4.0 30 07/15/17 06:46 141/72 07/15/17 05:45 109 24 99 Venturi Mask 4.0 30 07/15/17 05:33 108 24 95 Venturi Mask 4.0 30 07/15/17 04:00 98.1 98 21 141/72 91 Nasal Cannula 07/15/17 01:20 105 24 98 Venturi Mask 4.0 30 07/15/17 01:07 101 22 96 Venturi Mask 4.0 30 07/15/17 00:00 98.0 91 19 129/64 92 Nasal Cannula 07/14/17 23:28 124/64 07/14/17 21:18 104 124/69 07/14/17 20:00 98.2 104 21 124/69 91 Room Air 07/14/17 19:59 102 24 98 Venturi Mask 4.0 30 07/14/17 19:55 Venturi Mask 4.0 30 07/14/17 19:55 95 Venturi Mask 4.0 30 07/14/17 19:52 98 22 95 Venturi Mask 4.0 30 07/14/17 15:58 98.6 94 20 145/75 98 07/14/17 15:05 94 24 97 Venturi Mask 4.0 30 07/14/17 14:56 91 22 94 Venturi Mask 4.0 30 07/14/17 14:32 140/65 Intake and Output 07/14/17 07/15/17 19:00 07:00 Intake Total 610 ml 690 ml Output Total 1000 ml 1550 ml Balance -390 ml -860 ml IV Total 550 ml 150 ml Tube Feeding 60 ml 540 ml Output Urine Total 1000 ml 1550 ml # Voids 1 Objective General Appearance: no acute distress HEENT: normocephalic, atraumatic Respiratory/Chest: lungs clear, no respiratory distress, no accessory muscle use, loud rhonchi Cardiovascular: normal rate, no JVD, CL-femoral intact Abdomen: normal bowel sounds, soft, non tender Extremities: no edema Neurologic/Psychiatric: alert, responsive Musculoskeletal: normal muscle bulk Microbiology Date/Time Source Procedure Growth Status 07/13/17 11:45 Blood Blood Culture - Preliminary NO GROWTH AFTER 24 HOURS Resulted 07/13/17 11:40 Blood Blood Culture - Preliminary NO GROWTH AFTER 24 HOURS Resulted 07/13/17 23:15 Sputum Gram Stain - Final Resulted 07/13/17 23:15 Sputum Culture - Preliminary Gram Negative Bacillus 1 Resulted Laboratory Tests 07/15/17 06:20: White Blood Count 9.7, Red Blood Count 3.19L, Hemoglobin 9.0L, Hematocrit 28.8L , Mean Corpuscular Volume 90, Mean Corpuscular Hemoglobin 28.2, Mean Corpuscular Hemoglobin Concent 31.3L, Red Cell Distribution Width 14.0, Platelet Count 555H, Mean Platelet Volume 6.2L, Neutrophils (%) (Auto) 83.9H, Lymphocytes (%) (Auto) 9.7L, Monocytes (%) (Auto) 3.9, Eosinophils (%) (Auto) 1.5, Basophils (%) (Auto) 0.9, Prothrombin Time 10.9, Prothromb Time International Ratio 1.0, Activated Partial Thromboplast Time 27, Sodium Level 146H, Potassium Level 4.7, Chloride Level 109H, Carbon Dioxide Level 30, Anion Gap 8, Blood Urea Nitrogen 69H, Creatinine 2.3H, Estimat Glomerular Filtration Rate 28.8, Glucose Level 214H, Calcium Level 9.1, Phosphorus Level 4.4, Magnesium Level 2.6H, Iron Level 19L, Total Bilirubin 0.2, Aspartate Amino Transf (AST/SGOT) 27, Alanine Aminotransferase (ALT/SGPT) 33, Alkaline Phosphatase 111, Total Protein 7.1, Albumin 1.7L, Globulin 5.4, Albumin/ Globulin Ratio 0.3L Current Medications Medications (Trade) Dose Ordered Sig/Willem Route PRN Reason Start Time Stop Time Status Last Admin Dose Admin Acetaminophen (Tylenol) 500 mg Q6H PRN ORAL MILD PAIN (1-4). NTE 3GM/DAY 07/06/17 19:01 07/30/17 19:00 Acetaminophen (Tylenol) 650 mg DAILY PRN ORAL Temp > 100.5 07/06/17 19:01 08/05/17 19:00 07/13/17 05:24 Acetaminophen (Tylenol) 650 mg Q6H PRN ORAL MODERATE PAIN (5-7) 07/06/17 19:01 07/30/17 19:00 Acetylcysteine (Mucomyst) 100 mg Q4HRT HHN 07/09/17 11:00 08/07/17 18:59 07/15/17 10:18 Amikacin Sulfate (Amikin) 300 mg Q12HR@,22 INH 07/14/17 22:00 07/21/17 21:59 07/15/17 10:17 Amlodipine Besylate (Norvasc) 10 mg DAILY GT 07/07/17 09:00 07/21/17 08:59 07/15/17 10:58 Aspirin (ASA) 81 mg DAILY ORAL 07/07/17 09:00 07/30/17 08:59 07/15/17 10:57 Bisacodyl (Dulcolax) 10 mg DAILYPRN PRN RECTAL constipationIF MOM INEFFECTIVE 07/06/17 21:00 07/26/17 20:59 Clonidine HCl (Catapres Tab) 0.1 mg Q4H PRN GT bp of 160 syst and above 07/06/17 19:14 07/21/17 19:13 Collagenase (Santyl) 1 applic DAILY TOPIC 07/07/17 09:00 07/29/17 08:59 07/15/17 11:30 Dextrose (Dextrose 50%) STAT PRN IV Hypoglycemia 07/06/17 21:00 07/26/17 20:59 Famotidine (Pepcid) 20 mg DAILY ORAL 07/07/17 09:00 07/22/17 08:59 07/15/17 10:57 Fluconazole/ Sodium Chloride 100 ml @ 100 mls/hr Q24H IV 07/13/17 13:00 07/20/17 12:59 07/14/17 12:31 Heparin Sodium (Porcine) (Heparin 5000 units/ml) 5,000 units EVERY 12 HOURS SUBQ 07/06/17 21:00 07/21/17 08:59 07/13/17 10:08 Hydralazine HCl (Apresoline) 25 mg Q8HR GT 07/06/17 22:00 07/21/17 17:59 07/15/17 06:46 Insulin Aspart (NovoLOG) EVERY 6 HOURS SUBQ 07/07/17 00:00 07/21/17 06:29 07/15/17 06:48 Insulin Detemir (Levemir) 15 units QHS SUBQ 07/06/17 21:00 08/03/17 20:59 07/14/17 21:19 Levalbuterol HCl (Xopenex) 1.25 mg Q4HRT HHN 07/15/17 11:00 07/20/17 10:59 07/15/17 10:18 Levothyroxine Sodium (Synthroid) 50 mcg ACBREAKFAST GT 07/07/17 06:30 07/21/17 06:29 07/15/17 06:46 Metoprolol Tartrate (Lopressor) 100 mg EVERY 12 HOURS GT 07/06/17 21:00 08/03/17 20:59 07/15/17 10:58 Nitroglycerin (Ntg) 0.4 mg Q5M PRN SL CHEST PAIN 07/06/17 18:45 07/21/17 20:59 Sodium Chloride 1,000 ml @ 75 mls/hr [id number] IV 07/06/17 19:00 08/03/17 18:59 07/14/17 12:31 JESSE ZAVALA Jul 15, 2017 11:46
[2017-07-15 12:11] VITALS: BP 149/77
--- NOTE | 2017-07-15 13:44 | Pre-Procedure Note/Attestation ---
Pre-Procedure Note/Attestation Complete Prior to Procedure Planned Procedure: not applicable Procedure Narrative: tracheostomy Indications for Procedure Pre-Operative Diagnosis: unable to protect airway, respiratory hypoxia, needs protected airway Attestation I attest that I discussed the nature of the procedure; its benefits; risks and complications; and alternatives (and the risks and benefits of such alternatives ), prior to the procedure, with the patient (or the patient's legal medical center representative). I attest that, if there was a reasonable possibility of needing a blood transfusion, the patient (or the patient's legal medical center representative) was given the [facility] standardized written summary, pursuant to the Elvin Galateo Blood Safety Act ([place] Health and Safety Code # 1645, as amended). I attest that I re-evaluated the patient just prior to the surgery and that there has been no change in the patient's H&P, except as documented below: Judah Henao Jul 15, 2017 13:44
[2017-07-15 16:00] VITALS: BP 138/68
[2017-07-15 20:42] VITALS: BP 121/79
--- NOTE | 2017-07-15 21:09 | General Progress Note ---
Assessment/Plan Assessment/Plan #. Anemia secondary to chronic disease. --> Anemia workup reviewed. --> Hemoglobin improved from yesterday --> Blood transfusion not required unless symptomatic or hgb <7. --> Trend cbc daily. #. Coagulopathy, malnutrition and vitamin K deficiency. --> administer vitamin K as needed. --> Goal INR between 2 and 3 --> Trend levels daily. #. Leukocytosis, likely secondary to underlying infection, sepsis, and antibiotics. --> has resolved, wbc count wnl --> S/P vancomycin. #. Thrombocytosis. --> Levels remains elevated. Monitor closely. #. Acute hypoxemia, requiring intubation. --> Currently extubated #. Acute kidney injury. #. Dysphagia with gastrostomy tube. #. Cerebrovascular accident with right-sided hemiplegia. #. Acute toxic metabolic encephalopathy. #. Hypothyroidism. Subjective Date patient seen: Jul 15, 2017 Constitutional: Denies: no symptoms, chills, diaphoresis, fever, malaise, weakness, other HEENT: Denies: no symptoms, eye pain, blurred vision, tearing, double vision, ear pain, ear discharge, nose pain, nose congestion, throat pain, throat swelling, mouth pain, mouth swelling, other Cardiovascular: Denies: no symptoms, chest pain, edema, irregular heart rate, lightheadedness, palpitations, syncope, other Respiratory: Denies: no symptoms, cough, orthopnea, shortness of breath, SOB with excertion, SOB at rest, sputum, stridor, wheezing, other Gastrointestinal/Abdominal: Denies: no symptoms, abdomen distended, abdominal pain, black stools, tarry stools, blood in stool, constipated, diarrhea, difficulty swallowing, nausea, poor appetite, poor fluid intake, rectal bleeding , vomiting, other Hematologic/Lymphatic: Reports: anemia Allergies: Coded Allergies: No Known Allergies (Unverified , 05/11/17) Subjective No new events overnight. On breathing support. No fever. Objective Last 24 Hour Vital Signs Date Time Temp Pulse Resp B/P (MAP) Pulse Ox O2 Delivery O2 Flow Rate FiO2 07/15/17 20:42 97.7 81 19 121/79 93 07/15/17 19:58 96 18 99 Venturi Mask 4.0 30 07/15/17 19:41 Venturi Mask 4.0 30 07/15/17 19:40 96 Venturi Mask 4.0 30 07/15/17 19:38 101 22 96 Venturi Mask 4.0 30 07/15/17 16:00 97.7 90 18 138/68 94 Room Air 07/15/17 15:20 149/77 07/15/17 14:40 89 18 98 Venturi Mask 4.0 30 07/15/17 14:39 87 22 97 Venturi Mask 4.0 30 07/15/17 12:11 98.1 101 18 149/77 94 Venturi Mask 07/15/17 10:58 94 155/77 07/15/17 10:58 94 155/77 07/15/17 10:30 94 20 98 Venturi Mask 4.0 30 07/15/17 10:27 94 20 98 Venturi Mask 4.0 30 07/15/17 10:18 91 16 96 Venturi Mask 4.0 30 07/15/17 10:17 30 07/15/17 10:17 91 16 96 Venturi Mask 4.0 30 07/15/17 08:00 98.4 101 20 155/77 94 Venturi Mask 07/15/17 07:59 Venturi Mask 4.0 30 07/15/17 07:59 96 Venturi Mask 4.0 30 07/15/17 07:59 92 16 95 Venturi Mask 4.0 30 07/15/17 06:46 141/72 07/15/17 05:45 109 24 99 Venturi Mask 4.0 30 07/15/17 05:33 108 24 95 Venturi Mask 4.0 30 07/15/17 04:00 98.1 98 21 141/72 91 Nasal Cannula 07/15/17 01:20 105 24 98 Venturi Mask 4.0 30 07/15/17 01:07 101 22 96 Venturi Mask 4.0 30 07/15/17 00:00 98.0 91 19 129/64 92 Nasal Cannula 07/14/17 23:28 124/64 07/14/17 21:18 104 124/69 Intake and Output 07/14/17 07/15/17 19:00 07:00 Intake Total 610 ml 690 ml Output Total 1000 ml 1550 ml Balance -390 ml -860 ml IV Total 550 ml 150 ml Tube Feeding 60 ml 540 ml Output Urine Total 1000 ml 1550 ml # Voids 1 Laboratory Tests 07/15/17 06:20: White Blood Count 9.7, Red Blood Count 3.19L, Hemoglobin 9.0L, Hematocrit 28.8L , Mean Corpuscular Volume 90, Mean Corpuscular Hemoglobin 28.2, Mean Corpuscular Hemoglobin Concent 31.3L, Red Cell Distribution Width 14.0, Platelet Count 555H, Mean Platelet Volume 6.2L, Neutrophils (%) (Auto) 83.9H, Lymphocytes (%) (Auto) 9.7L, Monocytes (%) (Auto) 3.9, Eosinophils (%) (Auto) 1.5, Basophils (%) (Auto) 0.9, Prothrombin Time 10.9, Prothromb Time International Ratio 1.0, Activated Partial Thromboplast Time 27, Sodium Level 146H, Potassium Level 4.7, Chloride Level 109H, Carbon Dioxide Level 30, Anion Gap 8, Blood Urea Nitrogen 69H, Creatinine 2.3H, Estimat Glomerular Filtration Rate 28.8, Glucose Level 214H, Calcium Level 9.1, Phosphorus Level 4.4, Magnesium Level 2.6H, Iron Level 19L, Total Bilirubin 0.2, Aspartate Amino Transf (AST/SGOT) 27, Alanine Aminotransferase (ALT/SGPT) 33, Alkaline Phosphatase 111, Total Protein 7.1, Albumin 1.7L, Globulin 5.4, Albumin/ Globulin Ratio 0.3L Height (Feet): 5 Height (Inches): 9.00 Weight (Pounds): 202 General Appearance: lethargic Neck: supple Cardiovascular: normal rate Respiratory/Chest: decreased breath sounds Dejan Copeland Jul 15, 2017 21:09
[2017-07-15] MEDS: Levemir Flexpen SUBQ SCH (21:12)
[2017-07-16] VITALS (15 sets, daily range): BP systolic 120–159; BP diastolic 56–96
[2017-07-16] MEDS: Levalbuterol Inh UD 1.25mg/0.5ml HHN SCH ×7 (00:06→22:54)
--- NOTE | 2017-07-16 00:15 | Progress Note ---
DATE: 07/15/2017 SUBJECTIVE: The patient is awake, alert, lethargic, afebrile, and hemodynamically stable. PHYSICAL EXAMINATION: VITAL SIGNS: Blood pressure 121/79, pulse was 81, respiration of 19, temperature was 97.7 degrees. HEENT: Eyes were normal. ENT, mucous membranes were moist and intact. NECK: Supple with no JVD without lymph nodes. LUNGS: There is bibasilar rhonchi at both bases. HEART: Normal sounds with regular beats. There are no S3, S4, or pericardial rub. ABDOMEN: Soft and nontender with normal bowel sounds. Gastrostomy site is clean. EXTREMITIES: Warm without cyanosis, clubbing, or edema. LABORATORY AND DIAGNOSTIC DATA: Hemoglobin is 9.0, hematocrit 28.8 with MCV of 90, WBC of 6.7 and platelets are 555. His BUN and creatinine are 69 and 2.3 respectively. His sodium is 146, potassium 4.7, chloride 109, CO2 is 36, His calcium is 9.1. His iron is 19. His phosphorus is 4.4 and magnesium is 2.6. His albumin is 1.7 and total protein is 7.1. IMPRESSION: The patient has chronic renal failure. His creatinine did not change from 07/13/2017 through 07/16/2017. His BUN declined from 87 to 69. The patient is scheduled to undergo tracheostomy in a.m. He is cleared for surgery. Martina Morales M.D. DR: MAHENDRA JOB#: [id number] CC:
[2017-07-16] MEDS: NovoLOG Insulin Flexpen SUBQ SCH ×4 (00:28→18:05)
[2017-07-16] MEDS: HydrALAZINE 25mg tab GT SCH ×4 (05:45→22:22)
[2017-07-16 08:21] LABS: BASOPHILS % (AUTO) 0.9 % (0.0-2.0); HEMOGLOBIN 9.4 G/DL (14.2-18.0); LYMPHOCYTES % (AUTO) 13.9 % (20.0-45.0); MEAN CORPUSCULAR VOLUME 90 FL (80-99); MONOCYTES % (AUTO) 4.1 % (1.0-10.0); PLATELET COUNT 504 K/UL (150-450); RED BLOOD COUNT 3.33 M/UL (4.70-6.10); RED CELL DISTRIBUTION WIDTH 14.4 % (11.6-14.8); WHITE BLOOD COUNT 8.5 K/UL (4.8-10.8)
[2017-07-16 08:45] LABS: ANION GAP 8 mmol/L (5-15); BLOOD UREA NITROGEN 65 mg/dL (7-18); CALCIUM 8.9 MG/DL (8.5-10.1); CARBON DIOXIDE 31 MMOL/L (21-32); CHLORIDE 110 MMOL/L (98-107); CREATININE 2.2 MG/DL (0.55-1.30); POTASSIUM 4.7 MMOL/L (3.5-5.1); SODIUM 149 MMOL/L (136-145)
[2017-07-16] MEDS: Aspirin Baby 81mg ORAL SCH (09:00)
[2017-07-16] MEDS: Heparin 5000 units/ml inj SUBQ SCH ×2 (09:00→20:50)
[2017-07-16] MEDS ORDERED: Lidocaine 1% 10mg/ml/Epi 0.005mg/ml 30ml vial INJ ONE (09:31)
[2017-07-16] MEDS: Amikacin for Inhalation 2ML INH SCH ×2 (10:00→21:26)
--- NOTE | 2017-07-16 11:31 | Brief Operative Note ---
Immediate Post Operative Note Operative Note Pre-op Diagnosis: unable to protect airway, respiratory hypoxia, needs protected airway Procedure: Tracheostomy Findings: consistent w/pre-op dx studies Surgeon: franci Anesthesiologist: sarah Anesthesia: general Specimen: none Complications: none Condition: stable Fluids: see records Estimated Blood Loss: minimal Drains: none Implant(s) used?: Yes - 8f Judah Martin Jul 16, 2017 11:31
--- NOTE | 2017-07-16 11:43 | Immediate Post-Op Evaluation ---
Immediate Post-Op Evalulation Immediate Post-Op Evalulation Procedure: Trach Date of Evaluation: Jul 16, 2017 Time of Evaluation: 11:45 IV Fluids: 250 Blood Pressure Systolic: 104 Blood Pressure Diastolic: 66 Pulse Rate: 88 Respiratory Rate: 12 O2 Sat by Pulse Oximetry: 97 Pain Score (1-10): 0 Nausea: No Vomiting: No Complications No complication Patient Status: reacts, ventilated, none Hydration Status: adequate Drug: Ancef Given Within 1 Hr of Incision: Yes Time Given: 11:00 LEOLA GALINDO M.D. Jul 16, 2017 11:43
--- NOTE | 2017-07-16 11:45 | 48 Hour Post Anesthesia Eval ---
Post Anesthesia Evaluation Procedure: Trach Date of Evaluation: Jul 16, 2017 Time of Evaluation: 12:15 Blood Pressure Systolic: 127 0: 75 Pulse Rate: 93 O2 Sat by Pulse Oximetry: 100 Airway: patent Nausea: No Vomiting: No Pain Intensity: 0 Hydration Status: adequate Cardiopulmonary Status: Stable Mental Status/LOC: patient returned to baseline Follow-up Care/Observations: As per surgery Post-Anesthesia Complications: No anesthetic complication Follow-up care needed: N/A LEOLA GALINDO M.D. Jul 16, 2017 11:45
--- NOTE | 2017-07-16 12:15 | Progress Note ---
DATE: 07/15/2017 CARDIOLOGY PROGRESS NOTE SUBJECTIVE: The patient has continued to have difficulty with secretion management. Chest x-ray is worsening with recurring atelectasis. The patient is scheduled for tracheostomy. OBJECTIVE: VITAL SIGNS: Blood pressure 155/77, pulse 94, and respirations 20. LUNGS: Coarse breath sounds. Scattered rhonchi. HEART: Regular rhythm and rate. Normal S1 and S2. ABDOMEN: Soft. EXTREMITIES: Trace edema. LABORATORY DATA: White count 9.7 and hemoglobin 9. Potassium 4.7, sodium 146, bicarbonate 30, BUN 69, and creatinine 3.3. Albumin 1.7. IMPRESSION: 1. Respiratory failure. 2. Aspiration. 3. Dehydration. 4. Hypernatremia. 5. Acute on chronic renal failure. 6. Iron deficiency. 7. Severe protein-calorie malnutrition. 8. Acute on chronic diastolic congestive heart failure. PLAN: 1. Free water replacement. 2. No diuretics. 3. Respiratory hygiene. 4. Iron replacement. 5. Transfuse for hemoglobin below 8 g. 6. Continue current antihypertensives with aspirin prophylaxis and beta-blockade. Proceed with surgical intervention with mildly increased perioperative cardiovascular risk. Ulisses Gaston M.D. DR: Shayan JOB#: [id number] CC: COLLEEN
[2017-07-16] MEDS ORDERED: Nitroglycerin Subl 0.4mg tab SL PRN (12:30)
[2017-07-16] MEDS ORDERED: Acetaminophen 500mg (ES) tab ORAL PRN (13:15)
--- NOTE | 2017-07-16 16:49 | Nephrology Progress Note ---
Assessment/Plan Problem List: (1) Acute renal failure (2) Respiratory failure requiring intubation (3) Urosepsis (4) Anemia Assessment: worsening (5) Hypoalbuminemia Assessment BOOGIE (acute kidney injury), Cr 2.3 H&H lower Respiratory failure no trached Respiratory failure with hypoxia Aspiration pneumonia, Urosepsis Anemia ACS (acute coronary syndrome), Non St Elevation PR CHF (congestive heart failure) Acute encephalopathy GT feeding LLL atelectesis worsening, Plan plan: Post op / Trach care transfusion for low H&H as needed avoid Nephrotoxics monitor renal parameters Keep BP and BS in check Optimize pulmonary and cardiac support Subjective ROS Limited/Unobtainable: Yes Objective Objective Last 24 Hour Vital Signs Date Time Temp Pulse Resp B/P (MAP) Pulse Ox O2 Delivery O2 Flow Rate FiO2 07/16/17 16:00 98 16 142/71 99 Mechanical Ventilator 30 07/16/17 16:00 101 07/16/17 15:41 90 20 98 Mechanical Ventilator 30 07/16/17 15:33 98 20 30 07/16/17 15:33 88 20 98 Mechanical Ventilator 30 07/16/17 15:00 94 18 143/67 99 Mechanical Ventilator 30 07/16/17 14:50 134/62 07/16/17 14:00 90 17 120/66 99 Mechanical Ventilator 30 07/16/17 13:00 98.4 95 18 148/67 98 Mechanical Ventilator 30 07/16/17 12:25 98.4 64 18 159/64 93 Room Air 07/16/17 11:50 89 19 30 07/16/17 11:45 93 100 07/16/17 11:43 88 12 97 07/16/17 10:11 Venturi Mask 07/16/17 10:11 Venturi Mask 07/16/17 08:17 90 18 98 Venturi Mask 4.0 30 07/16/17 08:07 95 Venturi Mask 4.0 30 07/16/17 08:07 90 16 96 Venturi Mask 4.0 30 07/16/17 08:07 Venturi Mask 4.0 30 07/16/17 08:00 98.8 84 20 146/75 96 07/16/17 05:45 145/59 07/16/17 04:24 98.4 93 19 145/59 93 07/16/17 04:00 Venturi Mask 07/16/17 03:49 95 20 99 Venturi Mask 4.0 30 07/16/17 03:25 91 21 99 Venturi Mask 4.0 30 07/16/17 00:12 Venturi Mask 07/16/17 00:10 97.7 88 19 139/69 93 07/15/17 23:59 93 20 99 Venturi Mask 4.0 30 07/15/17 23:54 89 22 99 Venturi Mask 4.0 30 07/15/17 23:29 140/70 07/15/17 21:21 97 18 95 Venturi Mask 4.0 30 07/15/17 21:13 81 121/79 07/15/17 20:42 97.7 81 19 121/79 93 07/15/17 20:00 Venturi Mask 07/15/17 19:58 96 18 99 Venturi Mask 4.0 30 07/15/17 19:50 101 20 99 Venturi Mask 4.0 30 07/15/17 19:41 Venturi Mask 4.0 30 07/15/17 19:40 96 Venturi Mask 4.0 30 07/15/17 19:38 101 22 96 Venturi Mask 4.0 30 Intake and Output 07/15/17 07/16/17 19:00 07:00 Intake Total 135 ml 675 ml Output Total 200 ml 1600 ml Balance -65 ml -925 ml Free Water 30 ml IV Total 75 ml 375 ml Tube Feeding 60 ml 240 ml Blood Product 30 ml Output Urine Total 200 ml 1600 ml # Bowel Movements 1 1 Laboratory Tests 07/16/17 06:20: White Blood Count 8.5, Red Blood Count 3.33L, Hemoglobin 9.4L, Hematocrit 30.0L , Mean Corpuscular Volume 90, Mean Corpuscular Hemoglobin 28.1, Mean Corpuscular Hemoglobin Concent 31.2L, Red Cell Distribution Width 14.4, Platelet Count 504H, Mean Platelet Volume 6.1L, Neutrophils (%) (Auto) 79.0H, Lymphocytes (%) (Auto) 13.9L, Monocytes (%) (Auto) 4.1, Eosinophils (%) (Auto) 2.0, Basophils (%) (Auto) 0.9, Sodium Level 149H, Potassium Level 4.7, Chloride Level 110H, Carbon Dioxide Level 31, Anion Gap 8, Blood Urea Nitrogen 65H, Creatinine 2.2H, Estimat Glomerular Filtration Rate 30.3, Glucose Level 112#H, Calcium Level 8.9 Height (Feet): 5 Height (Inches): 9.00 Weight (Pounds): 202 Objective no other changes GARCÍA READ Jul 16, 2017 16:49
[2017-07-16] MEDS ORDERED: Morphine Sulfate 4mg/ml Inj IVP PRN (17:45)
[2017-07-16] MEDS: dilTIAZem HCl 60mg tab GT SCH (17:55)
--- NOTE | 2017-07-16 18:17 | Infectious Diseases Prog Note ---
Assessment/Plan Assessment/Plan Fever- resolved Tracheitis /bronchitis (+increased secretions, no definitive PNA on CXR) -sp cx PsA (sensi pending), GNB #2 (id and sensi) -CXR: Increasing right basilar atelectasis. Other stable findings as described , including borderline cardiomegaly Sepsis 2ry to HCAP, s/p Rx -sp cx 06/21: +3 MDR PSA (S. Cefepime, Gentamicin/Amikacin) -u./a WBC 5-10, nit neg, leuk est +1, ucx 10-20K C. albicans (colonzier) -rectal wound cx: ESBL E.coli, PsA (colonizers)- no signs of infection 07/22 CoNS bacteremia- suspect contaminant 06/20 +07/22, 06/21 Neg x4; 07/13 NTD ? UTI : UCx : chinedu ( Albican and Glab. ) leukocytosis-resolved Lactic acidosis- resolved Cdiff neg 06/25 -Neg: HIV ag/ab, RPR, CrAg serum, FTA-ab Acute hypoxic resp failure s/p intubation 06/20- s/p extubation 06/25 -s/p Trach 07/16 BOOGIE Recent gastritis (dx by EGD) Hx of encephalopathy -05/22 CT head: No evidence of acute intracranial hemorrhage, mass effect or cortical edema. MRI may be obtained for more sensitive evaluation as clinically indicated. Stable chronic infarct in the right frontal lobe. Cerebral and cerebellar atrophy greater than expected for age. Clinical correlation recommended. Mild periventricular hypoattenuation suggestive of chronic ischemic microvascular changes. -previous admission:nical correlation recommended. Mild periventricular hypoattenuation suggestive of chronic ischemic microvascular changes. Small area of right frontal encephalomalacia suggestive of old infarct. -UDS neg -TSH normal -Brain MRI: Chronic and age-related changes. Old right frontal infarct. Negative for acute intracranial bleed, mass effect, or acute infarct hx of VRE and MRSA colonization HTN CKD DM2 bipolar dz/schizophrenia GERD cardiac arrhythmia Dementia CAD with prior VA MS osteoporosis asthma VIt D def Hypothyroidism HLD dysphagia s/p GT R MCA CVA with left hemiplegia Plan: - IV Diflucan d# / -14 , and Amikacin INH d# 08/25 for Resp increased secretions ( Hx of MDR PSA ) - 07/09 SP Cefepime d# / , and Amikacin d# 7/ 7 -8 SP IV vancomycin #5, Amikacin #5 -1/6 SP Meropenem #3 -1/4 SP Amikacin x1 -f/u cx -Monitor CBC/BMP, temperatures -aspiration precautions - wound care/trach care Subjective Allergies: Coded Allergies: No Known Allergies (Unverified , 05/11/17) Subjective afebrile > 72hrs no leukocytosis s/p trach today, on ICU MV Fiow 30% Bcx NTD Objective Vital Signs Last 24 Hour Vital Signs Date Time Temp Pulse Resp B/P (MAP) Pulse Ox O2 Delivery O2 Flow Rate FiO2 07/16/17 18:00 93 15 125/96 100 Mechanical Ventilator 30 07/16/17 17:55 102 131/70 07/16/17 17:01 101 20 30 07/16/17 17:00 98.9 103 16 153/73 99 Mechanical Ventilator 30 07/16/17 16:00 98 16 142/71 99 Mechanical Ventilator 30 07/16/17 16:00 101 07/16/17 15:41 90 20 98 Mechanical Ventilator 30 07/16/17 15:33 98 20 30 07/16/17 15:33 88 20 98 Mechanical Ventilator 30 07/16/17 15:00 94 18 143/67 99 Mechanical Ventilator 30 07/16/17 14:50 134/62 07/16/17 14:00 90 17 120/66 99 Mechanical Ventilator 30 07/16/17 13:00 98.4 95 18 148/67 98 Mechanical Ventilator 30 07/16/17 12:25 98.4 64 18 159/64 93 Room Air 07/16/17 11:50 89 19 30 07/16/17 11:45 93 100 07/16/17 11:43 88 12 97 07/16/17 10:11 Venturi Mask 07/16/17 10:11 Venturi Mask 07/16/17 08:17 90 18 98 Venturi Mask 4.0 30 07/16/17 08:07 95 Venturi Mask 4.0 30 07/16/17 08:07 90 16 96 Venturi Mask 4.0 30 07/16/17 08:07 Venturi Mask 4.0 30 07/16/17 08:00 98.8 84 20 146/75 96 07/16/17 05:45 145/59 07/16/17 04:24 98.4 93 19 145/59 93 07/16/17 04:00 Venturi Mask 07/16/17 03:49 95 20 99 Venturi Mask 4.0 30 07/16/17 03:25 91 21 99 Venturi Mask 4.0 30 07/16/17 00:12 Venturi Mask 07/16/17 00:10 97.7 88 19 139/69 93 07/15/17 23:59 93 20 99 Venturi Mask 4.0 30 07/15/17 23:54 89 22 99 Venturi Mask 4.0 30 07/15/17 23:29 140/70 07/15/17 21:21 97 18 95 Venturi Mask 4.0 30 07/15/17 21:13 81 121/79 07/15/17 20:42 97.7 81 19 121/79 93 07/15/17 20:00 Venturi Mask 07/15/17 19:58 96 18 99 Venturi Mask 4.0 30 07/15/17 19:50 101 20 99 Venturi Mask 4.0 30 07/15/17 19:41 Venturi Mask 4.0 30 07/15/17 19:40 96 Venturi Mask 4.0 30 07/15/17 19:38 101 22 96 Venturi Mask 4.0 30 Height (Feet): 5 Height (Inches): 9.00 Weight (Pounds): 202 Objective HEENT: atraumatic, trach in place Lungs: coarse BS Heart: RRR, no murmurs Abdomen: non-tender, active bowel sounds Extremities: no C/C/E SKin: no rashes Microbiology Date/Time Source Procedure Growth Status 07/13/17 23:15 Sputum Gram Stain - Final Resulted 07/13/17 23:15 Sputum Culture - Preliminary Pseudomonas Aeruginosa Gram Negative Bacillus 2 Resulted Laboratory Tests Test 07/16/17 06:20 White Blood Count 8.5 K/UL (4.8-10.8) Red Blood Count 3.33 M/UL (4.70-6.10) L Hemoglobin 9.4 G/DL (14.2-18.0) L Hematocrit 30.0 % (42.0-52.0) L Mean Corpuscular Volume 90 FL (80-99) Mean Corpuscular Hemoglobin 28.1 PG (27.0-31.0) Mean Corpuscular Hemoglobin Concent 31.2 G/DL (32.0-36.0) L Red Cell Distribution Width 14.4 % (11.6-14.8) Platelet Count 504 K/UL (150-450) H Mean Platelet Volume 6.1 FL (6.5-10.1) L Neutrophils (%) (Auto) 79.0 % (45.0-75.0) H Lymphocytes (%) (Auto) 13.9 % (20.0-45.0) L Monocytes (%) (Auto) 4.1 % (1.0-10.0) Eosinophils (%) (Auto) 2.0 % (0.0-3.0) Basophils (%) (Auto) 0.9 % (0.0-2.0) Sodium Level 149 MMOL/L (136-145) H Potassium Level 4.7 MMOL/L (3.5-5.1) Chloride Level 110 MMOL/L (98-107) H Carbon Dioxide Level 31 MMOL/L (21-32) Anion Gap 8 mmol/L (5-15) Blood Urea Nitrogen 65 mg/dL (7-18) H Creatinine 2.2 MG/DL (0.55-1.30) H Estimat Glomerular Filtration Rate 30.3 mL/min (>60) Glucose Level 112 MG/DL (74-106) #H Calcium Level 8.9 MG/DL (8.5-10.1) Current Medications Medications (Trade) Dose Ordered Sig/Willem Route PRN Reason Start Time Stop Time Status Last Admin Dose Admin Acetaminophen (Tylenol) 500 mg Q6H PRN ORAL MILD PAIN (1-4). NTE 3GM/DAY 07/16/17 13:15 07/30/17 19:00 Acetaminophen (Tylenol) 650 mg DAILYPRN PRN ORAL Temp > 100.5 07/16/17 12:45 08/15/17 12:44 Acetaminophen (Tylenol) 650 mg Q6H PRN ORAL MODERATE PAIN (5-7) 07/16/17 13:15 07/30/17 19:00 Amikacin Sulfate (Amikin) 300 mg Q12HR@10,22 INH 07/16/17 22:00 07/21/17 21:59 Amlodipine Besylate (Norvasc) 10 mg DAILY GT 07/17/17 09:00 07/21/17 08:59 Aspirin (ASA) 81 mg DAILY ORAL 07/17/17 09:00 07/30/17 08:59 Bisacodyl (Dulcolax) 10 mg DAILYPRN PRN RECTAL constipation 07/16/17 21:00 07/26/17 20:59 Clonidine HCl (Catapres Tab) 0.1 mg Q4H PRN GT bp of 160 syst and above 07/16/17 13:00 07/21/17 12:59 Collagenase (Santyl) 1 applic DAILY TOPIC 07/17/17 09:00 07/29/17 08:59 Dextrose (Dextrose 50%) STAT PRN IV Hypoglycemia 07/16/17 13:00 07/26/17 12:59 Diltiazem HCl (Cardizem) 60 mg EVERY 6 HOURS GT 07/16/17 18:00 08/15/17 17:59 07/16/17 17:55 Famotidine (Pepcid) 20 mg DAILY ORAL 07/17/17 09:00 07/22/17 08:59 Fluconazole/ Sodium Chloride 100 ml @ 100 mls/hr Q24H IV 07/16/17 13:00 07/20/17 12:59 07/16/17 13:08 Heparin Sodium (Porcine) (Heparin 5000 units/ml) 5,000 units EVERY 12 HOURS SUBQ 07/16/17 21:00 07/21/17 08:59 Hydralazine HCl (Apresoline) 25 mg Q8HR GT 07/16/17 14:00 07/21/17 17:59 07/16/17 14:50 Insulin Aspart (NovoLOG) EVERY 6 HOURS SUBQ 07/16/17 18:00 07/21/17 06:29 07/16/17 18:05 Insulin Detemir (Levemir) 15 units QHS SUBQ 07/16/17 21:00 08/03/17 20:59 Levalbuterol HCl (Xopenex) 1.25 mg Q4HRT HHN 07/16/17 15:00 07/20/17 10:59 07/16/17 15:33 Levothyroxine Sodium (Synthroid) 50 mcg ACBREAKFAST GT 07/17/17 06:30 07/21/17 06:29 Metoprolol Tartrate (Lopressor) 100 mg EVERY 12 HOURS GT 07/16/17 21:00 08/03/17 20:59 Morphine Sulfate (Morphine Sulfate) 2 mg Q3H PRN IVP Moderate to Severe Pain 07/16/17 17:45 07/23/17 17:44 Nitroglycerin (Ntg) 0.4 mg Q5M PRN SL CHEST PAIN 07/16/17 12:30 07/21/17 20:59 Sodium Chloride 1,000 ml @ 75 mls/hr [id number] IV 07/16/17 12:45 08/03/17 12:44 07/16/17 12:39 Hellen Hutchison M.D. Jul 16, 2017 18:17
--- NOTE | 2017-07-16 20:45 | Operative Note - Dictated ---
DATE OF OPERATION: 07/16/2017 PREOPERATIVE DIAGNOSES: 1. Unable to protect airway. 2. Respiratory hypoxia. 3. Indicated for protected airway. 4. Excessive secretions with aspiration. POSTOPERATIVE DIAGNOSES: 1. Unable to protect airway. 2. Respiratory hypoxia. 3. Indicated for protected airway. 4. Excessive secretions with aspiration. PROCEDURE PERFORMED: Tracheostomy. ATTENDING SURGEON: Judah Henao M.D. INTAKE SPECIALIST: None. ANESTHESIOLOGIST: Elvin Wakefield M.D. 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 SPECIMENS: None. COMPLICATIONS: None. CONDITION: Stable. FLUIDS: Please see anesthesia records. ESTIMATED BLOOD LOSS: Minimal. DRAINS: None. IMPLANTS: An 8-Divehi Shiley tracheostomy use. WOUND CLASSIFICATION: Class 1. ANTIBIOTICS: The patient was given Ancef 2 g IV 1 hour prior to cut time. COUNTS: Sponge and needle count correct x2. INDICATIONS FOR PROCEDURE: This is a 62-year-old male with multiple medical comorbidities who initially developed sepsis and was transferred to an outside facility and stabilized and discharged and then developed sepsis again, at which time he was transferred to [facility] for care and was found to be in acute respiratory failure requiring intubation and mechanical ventilation. Since that time, great medical management was given allowing the patient to be extubated. Unfortunately, the patient has acquired pneumonia and during workup was identified to have excessive amounts of secretions, which he was unable to clear. The patient had maximal medical efforts to improve secretions and help with secretion management, but unfortunately, with the amount and with the patient's medical condition and his inability to clear secretions, continued to be believed to be high risk for aspiration and the patient seems to have aspirated during admission. When evaluated, the patient was alert, but unresponsive and was noted to have significant amount of secretions pocketing in his mouth and spilling over around to the bed, pillow and around his face. He did not have a strong gag reflex or a cough. He was unable to follow commands and deemed very high risk for aspiration if not already aspirated in the past. At this time, care was discussed between motor carrier inspector, respiratory team, and the patient's family. Given the patient's condition, history, and recent events, decision made that a protected airway would be in the patient's best interest. Discussion was had with the patient's sister who is his decision maker and after explaining the recommendations and the considerations for tracheostomy, the patient's sister stated that she is very interested and would like us to proceed with tracheostomy. Risks, benefits, and alternatives were discussed between the medical teams and the patient's durable power of real estate attorney and decision maker, and consent was obtained for surgery for tracheostomy, which was performed today. The patient was taken to the operating room and made comfortable in the hospital bed. Appropriate time-out was taken identifying the patient, procedure, operative staff, and surgical staff. General anesthesia was induced and the patient was intubated without difficulty. A shoulder roll was placed. The neck was prepped and draped in the standard surgical fashion. Anatomical landmarks were identified, and an incision was made 2 fingerbreadths above the sternal notch. Incision was carried down with electrocautery and blunt dissection to the trachea, which was identified and cleared. The first, second, and third tracheal rings were cleared and identified without complication. Hemostasis was achieved with electrocautery as necessary. Local anesthetic was infiltrated throughout the wound and surgical site as necessary. Once the trachea was cleared and the rings were identified, Anesthesia was aware and a Devyn flap was made into the trachea at approximately second tracheal ring. Once the flap was made, the ET tube could easily be identified. With the anesthesiologist's help, the ET tube was slowly withdrawn and once the ET tube was above the flap level, an 8-Divehi Shiley tracheostomy was inserted while a tracheal hook stabilized the trachea. Tracheostomy went into place without complication. The balloon of the tracheostomy tube was insufflated and the patient was placed on for mechanical ventilator through the tracheostomy. Good volumes without complication were identified. No leak was noted. At this time, the wound was irrigated and cleansed and conclusion of our procedure began. The skin incision that was used for tracheostomy was reapproximated in the lateral aspects using a 3-0 nylon suture. Following this, tracheostomy dressings and neck collar were placed. The patient tolerated the procedure well, and was taken directly to the intensive care unit for monitoring postoperatively. April Valenzuela JOB#: [id number] CC: COLLEEN
[2017-07-16] MEDS ORDERED: Levemir Flexpen SUBQ SCH (21:00)
--- NOTE | 2017-07-16 22:45 | Consultation ---
DATE OF CONSULTATION: 07/16/2017 CONSULTING PHYSICIAN: Shayan Wright M.D. REFERRING PHYSICIAN: Martina Morales M.D. REASON FOR CONSULTATION: For evaluation of hematuria. HISTORY OF PRESENT ILLNESS: This is an unfortunate 62-year-old male. He is a [facility] a [facility]. He was originally admitted to the hospital because of respiratory failure. He has had a prolonged hospital course. He has had an indwelling Cabrera catheter because of history of BPH, he has had intermittent hematuria, however, earlier this morning, he was noted to have more hematuria than usual with passage of clots and Urology evaluation was requested. I am not able to get any history from the patient, most of the history was obtained from the chart. PAST MEDICAL HISTORY: Significant for above, also history of cerebrovascular accident, hemiplegia. He has dementia and basically is nonverbal. He had history of coronary artery disease and hyperlipidemia. PAST SURGICAL HISTORY: He had a recent tracheostomy. Other surgeries are unknown. CURRENT MEDICATIONS: List in the hospital was reviewed. He is currently on Norvasc, aspirin, , amikacin, Dulcolax, heparin, Levemir, Lopressor, NovoLog, Xopenex, , Tylenol, fluconazole, Catapres, dextrose, and nitroglycerin. ALLERGIES: No known drug allergies. SOCIAL HISTORY: He is a resident of a [facility]. FAMILY HISTORY: Unable to obtain. REVIEW OF SYSTEMS: Unable to obtain. PHYSICAL EXAMINATION: GENERAL: This is an elderly male, he is nonverbal. VITAL SIGNS: Temperature is 98.4, blood pressure 148/67. HEENT: Normocephalic. Tracheostomy in place. ABDOMEN: Soft. Cabrera catheter is in place, is a 16-Arabic. GENITOURINARY: Urine is blood tinged. EXTREMITIES: Slightly contracted. LABORATORY DATA: White count is 8.5, hemoglobin 9.4, and platelets are 504,000. BUN is 65, creatinine is 2.2. I believe his baseline is close to 2. Potassium 4.7. His last PT was 10.9 with an INR of 1.0. His last UA showed 5 to 10 RBCs and 10 to 15 WBCs. There was 4+ protein. His microbiology was reviewed. He has had previous urine cultures that have not shown Scarlet. DIAGNOSTIC IMAGING STUDIES: The patient had an abdominal ultrasound last week and the kidneys were reportedly normal without hydronephrosis. IMPRESSION: 1. Gross hematuria. 2. Benign prostatic hypertrophy history. 3. Probable neurogenic bladder. 4. Urinary retention. 5. Urinary tract infection and colonization. 6. Proteinuria. 7. Chronic renal insufficiency. PLAN AND DISCUSSION: Again, the patient does have gross hematuria and it is presumably secondary to Cabrera trauma. I did reposition his Cabrera. I did personally had irrigated the Cabrera catheter and it irrigated well and is in good position. There were minimal clots and urine started to clear and I do not believe there is active bleeding. At this time, he will be monitored and the Cabrera catheter will be irrigated on a p.r.n. basis. At some point, he will need to have cystoscopy to evaluate his urinary tract. I will follow the patient. Thank you Dr. Morales for asking me to participate in this consultation. Shayan Wright M.D. DR: MEGAN JOB#: [id number] CC:
--- NOTE | 2017-07-16 23:29 | General Progress Note ---
Assessment/Plan Status: deteriorating, atelectasis Assessment/Plan #. Anemia secondary to chronic disease. --> Anemia workup reviewed. --> Hemoglobin has been stable and prbc not needed at this time --> Blood transfusion not required unless symptomatic or hgb <7. --> Trend cbc daily. #. Coagulopathy, malnutrition and vitamin K deficiency. --> administer vitamin K as needed. --> Goal INR between 2 and 3 --> Trend levels daily. #. Leukocytosis, likely secondary to underlying infection, sepsis, and antibiotics. --> has resolved, wbc count wnl --> S/P vancomycin. #. Thrombocytosis. --> Levels remains elevated. Monitor closely. #. Acute hypoxemia, requiring intubation. --> Currently extubated #. Acute kidney injury. #. Dysphagia with gastrostomy tube. #. Cerebrovascular accident with right-sided hemiplegia. #. Acute toxic metabolic encephalopathy. #. Hypothyroidism. #. Atelectasis. --> Chest Xray reveals worsening Subjective Date patient seen: Jul 16, 2017 Constitutional: Denies: no symptoms, chills, diaphoresis, fever, malaise, weakness, other HEENT: Denies: no symptoms, eye pain, blurred vision, tearing, double vision, ear pain, ear discharge, nose pain, nose congestion, throat pain, throat swelling, mouth pain, mouth swelling, other Cardiovascular: Denies: no symptoms, chest pain, edema, irregular heart rate, lightheadedness, palpitations, syncope, other Respiratory: Denies: no symptoms, cough, orthopnea, shortness of breath, SOB with excertion, SOB at rest, sputum, stridor, wheezing, other Gastrointestinal/Abdominal: Denies: no symptoms, abdomen distended, abdominal pain, black stools, tarry stools, blood in stool, constipated, diarrhea, difficulty swallowing, nausea, poor appetite, poor fluid intake, rectal bleeding , vomiting, other Hematologic/Lymphatic: Reports: anemia Allergies: Coded Allergies: No Known Allergies (Unverified , 05/11/17) Subjective On vent. Worsening chest xray. Objective Last 24 Hour Vital Signs Date Time Temp Pulse Resp B/P (MAP) Pulse Ox O2 Delivery O2 Flow Rate FiO2 07/16/17 23:00 89 19 99 Mechanical Ventilator 30 07/16/17 23:00 101.0 99 20 123/56 98 Mechanical Ventilator 30 07/16/17 22:56 84 19 30 07/16/17 22:55 89 17 99 Mechanical Ventilator 30 07/16/17 22:22 130/61 07/16/17 22:00 101.1 99 20 138/67 98 Mechanical Ventilator 30 07/16/17 21:34 79 22 100 Mechanical Ventilator 30 07/16/17 21:28 83 17 30 07/16/17 21:26 83 16 100 Mechanical Ventilator 30 07/16/17 21:11 148/70 07/16/17 21:00 101.5 99 20 135/64 98 Mechanical Ventilator 30 07/16/17 20:57 99 148/70 07/16/17 19:53 99.7 99 20 148/70 98 Mechanical Ventilator 30 07/16/17 19:01 99 21 100 Mechanical Ventilator 30 07/16/17 19:00 98 20 139/67 99 Mechanical Ventilator 30 07/16/17 18:56 98 22 99 Mechanical Ventilator 30 07/16/17 18:50 98 25 30 07/16/17 18:00 93 15 125/96 100 Mechanical Ventilator 30 07/16/17 17:55 102 131/70 07/16/17 17:01 101 20 30 07/16/17 17:00 98.9 103 16 153/73 99 Mechanical Ventilator 30 07/16/17 16:00 98 16 142/71 99 Mechanical Ventilator 30 07/16/17 16:00 101 07/16/17 15:41 90 20 98 Mechanical Ventilator 30 07/16/17 15:33 98 20 30 07/16/17 15:33 88 20 98 Mechanical Ventilator 30 07/16/17 15:00 94 18 143/67 99 Mechanical Ventilator 30 07/16/17 14:50 134/62 07/16/17 14:00 90 17 120/66 99 Mechanical Ventilator 30 07/16/17 13:00 98.4 95 18 148/67 98 Mechanical Ventilator 30 07/16/17 12:25 98.4 64 18 159/64 93 Room Air 07/16/17 11:50 89 19 30 07/16/17 11:45 93 100 07/16/17 11:43 88 12 97 07/16/17 10:11 Venturi Mask 07/16/17 10:11 Venturi Mask 07/16/17 08:17 90 18 98 Venturi Mask 4.0 30 07/16/17 08:07 95 Venturi Mask 4.0 30 07/16/17 08:07 90 16 96 Venturi Mask 4.0 30 07/16/17 08:07 Venturi Mask 4.0 30 07/16/17 08:00 98.8 84 20 146/75 96 07/16/17 05:45 145/59 07/16/17 04:24 98.4 93 19 145/59 93 07/16/17 04:00 Venturi Mask 07/16/17 03:49 95 20 99 Venturi Mask 4.0 30 07/16/17 03:25 91 21 99 Venturi Mask 4.0 30 07/16/17 00:12 Venturi Mask 07/16/17 00:10 97.7 88 19 139/69 93 07/15/17 23:59 93 20 99 Venturi Mask 4.0 30 07/15/17 23:54 89 22 99 Venturi Mask 4.0 30 07/15/17 23:29 140/70 Intake and Output 07/15/17 07/16/17 19:00 07:00 Intake Total 135 ml 675 ml Output Total 200 ml 1600 ml Balance -65 ml -925 ml Free Water 30 ml IV Total 75 ml 375 ml Tube Feeding 60 ml 240 ml Blood Product 30 ml Output Urine Total 200 ml 1600 ml # Bowel Movements 1 1 Laboratory Tests 07/16/17 06:20: White Blood Count 8.5, Red Blood Count 3.33L, Hemoglobin 9.4L, Hematocrit 30.0L , Mean Corpuscular Volume 90, Mean Corpuscular Hemoglobin 28.1, Mean Corpuscular Hemoglobin Concent 31.2L, Red Cell Distribution Width 14.4, Platelet Count 504H, Mean Platelet Volume 6.1L, Neutrophils (%) (Auto) 79.0H, Lymphocytes (%) (Auto) 13.9L, Monocytes (%) (Auto) 4.1, Eosinophils (%) (Auto) 2.0, Basophils (%) (Auto) 0.9, Sodium Level 149H, Potassium Level 4.7, Chloride Level 110H, Carbon Dioxide Level 31, Anion Gap 8, Blood Urea Nitrogen 65H, Creatinine 2.2H, Estimat Glomerular Filtration Rate 30.3, Glucose Level 112#H, Calcium Level 8.9 Height (Feet): 5 Height (Inches): 9.00 Weight (Pounds): 202 General Appearance: confused Respiratory/Chest: decreased breath sounds Abdomen: soft Dejan Copeland Jul 16, 2017 23:29
[2017-07-17] VITALS (20 sets, daily range): BP systolic 121–142; BP diastolic 54–84
--- NOTE | 2017-07-17 | Progress Note ---
DATE: 07/16/2017 CARDIOLOGY PROGRESS NOTE SUBJECTIVE: The patient is status post tracheostomy today. The surgical procedure was uncomplicated. The patient is seen in the intensive care unit and is having postop episodes of rapid atrial tachycardias that are nonsustained. SUBJECTIVE: NECK: Trach site with no bleeding. LUNGS: With coarse breath sounds. CARDIAC: Regular rhythm and rate. Normal S1, S2 with a fourth heart sound. ABDOMEN: Soft with G-tube. EXTREMITIES: Trace edema. LABORATORY DATA: Sodium 149, potassium 4.7, bicarbonate 31, BUN 65, and creatinine 2.2. White count 8.5, hemoglobin 9.4. IMPRESSION: 1. Paroxysmal atrial tachyarrhythmias. 2. Respiratory failure, status post tracheostomy. 3. Dehydration. 4. Hypernatremia. 5. Acute on chronic renal failure. 6. Hypovolemia. 7. Protein-calorie malnutrition. 8. Hypertensive cardiomyopathy. 9. Acute on chronic diastolic congestive heart failure. PLAN: 1. Discontinue amlodipine. 2. Replace with diltiazem for better suppression of atrial tachyarrhythmias. 3. Titrate hydralazine for adequate blood pressure control. 4. Maintain beta-blockade. 5. Continue free water replacement, deficit has not been corrected. 6. Replace electrolytes as needed. 7. Follow up magnesium level. Ulisses Gaston M.D. DR: LOIDA JOB#: [id number] CC:
[2017-07-17] MEDS: NovoLOG Insulin Flexpen SUBQ SCH ×5 (00:10→23:58)
[2017-07-17] MEDS: dilTIAZem HCl 60mg tab GT SCH ×4 (00:14→17:18)
[2017-07-17] MEDS: Levalbuterol Inh UD 1.25mg/0.5ml HHN SCH ×6 (02:54→23:05)
[2017-07-17 04:45] LABS: EOSINOPHILS % (AUTO) 1.8 % (0.0-3.0); HEMATOCRIT 27.8 % (42.0-52.0); HEMOGLOBIN 8.9 G/DL (14.2-18.0); LYMPHOCYTES % (AUTO) 12.9 % (20.0-45.0); MEAN CORPUSCULAR VOLUME 91 FL (80-99); MONOCYTES % (AUTO) 3.2 % (1.0-10.0); NEUTROPHILS % (AUTO) 81.1 % (45.0-75.0); PLATELET COUNT 377 K/UL (150-450); RED BLOOD COUNT 3.04 M/UL (4.70-6.10); RED CELL DISTRIBUTION WIDTH 14.4 % (11.6-14.8); WHITE BLOOD COUNT 8.8 K/UL (4.8-10.8)
[2017-07-17] MEDS: HydrALAZINE 25mg tab GT SCH ×3 (05:15→22:13)
[2017-07-17 05:32] LABS: ALANINE AMINOTRANSFERASE 29 U/L (12-78); ALBUMIN 1.7 G/DL (3.4-5.0); ALBUMIN/GLOBULIN RATIO 0.4 (1.0-2.7); ALKALINE PHOSPHATASE 105 U/L (46-116); ANION GAP 11 mmol/L (5-15); ASPARTATE AMINO TRANSFERASE 26 U/L (15-37); BILIRUBIN,TOTAL 0.2 MG/DL (0.2-1.0); BLOOD UREA NITROGEN 62 mg/dL (7-18); CALCIUM 8.4 MG/DL (8.5-10.1); CARBON DIOXIDE 29 MMOL/L (21-32); CHLORIDE 111 MMOL/L (98-107); CREATININE 2.3 MG/DL (0.55-1.30); POTASSIUM 4.9 MMOL/L (3.5-5.1); SODIUM 150 MMOL/L (136-145)
--- NOTE | 2017-07-17 07:15 | Progress Note ---
DATE: 07/16/2017 NOTE: POOR AUDIO SUBJECTIVE: The patient is now in the intensive care unit full day. This morning, he developed , which was abundant, followed by tracheostomy, which was uneventful. He developed fever to 101.8 and transferred to the intensive care unit. His blood pressure every time the patient is moved. PHYSICAL EXAMINATION: VITAL SIGNS: Blood pressure now is 148/70, his pulse is 101, respirations 22, and temperature is 101.8. HEENT: Eyes were normal. ENT, mucous membranes were moist and intact. NECK: Supple with no JVD without lymph nodes. Tracheostomy site is clean. LUNGS: Clear without rhonchi, rales, or wheezing. Secretions are small, thin, and waller. HEART: Normal sounds with regular beats. No S3, S4, or pericardial rub. ABDOMEN: Soft and nontender with normal bowel sounds. Gastrostomy site is clean. EXTREMITIES: Warm without cyanosis, clubbing, or edema. LABORATORY AND DIAGNOSTIC DATA: Hemoglobin is 9.4, hematocrit was 30.0 with MCV of 90, WBC of 8.5, and platelets is 504. His BUN and creatinine is 65 and 2.2 respectively. His sodium is 149, potassium 4.7, chloride 110, and CO2 is 31. His calcium is 8.9. His urine culture grew Gram-negative bacilli Pseudomonas aeruginosa and urine culture grew Scarlet albicans, and sensitivity to the Pseudomonas is not available yet. His sputum culture from was also with Pseudomonas aeruginosa, 07/09/2017 and 07/12/2017 with Scarlet albicans. The patient is now on Diflucan 200 mg IV piggyback q.24 hours. antibiotic. amikacin mg q.8 h. has been discontinued as well. The patient will be seen today by medical language specialist and farm technician and by the general surgeon and by the news analyst. In addition, the patient acute renal failure, BUN and creatinine 78 and 2.3 on 07/14/2017 and 65 and 2.2 on 07/16/2017. Repeat laboratory tests will be done in the morning. Martina Morales M.D. DR: WESTLEY JOB#: [id number] CC:
[2017-07-17 08:12] LABS: BILIRUBIN, URINE NEGATIVE (NEGATIVE); COLOR,URINE PALE YELLOW; GLUCOSE, URINE (UA) 1+ (NEGATIVE); KETONES,URINE NEGATIVE (NEGATIVE); LEUKOCYTE ESTERASE ,URINE 3+ (NEGATIVE); NITRITE,URINE NEGATIVE (NEGATIVE); PH,URINE 7 (4.5-8.0); PROTEIN,URINE 3+ (NEGATIVE); UROBILINOGEN,URINE NORMAL MG/DL (0.0-1.0)
[2017-07-17 08:13] LABS: APPEARANCE,URINE TURBID
[2017-07-17] MEDS: Heparin 5000 units/ml inj SUBQ SCH ×2 (08:42→21:03)
[2017-07-17] MEDS ORDERED: Aspirin Baby 81mg ORAL SCH (09:00)
--- NOTE | 2017-07-17 09:27 | Infectious Diseases Prog Note ---
Assessment/Plan Assessment/Plan Fever, recurrent- possibly post op - r/o new YARY, r/o pNA, UTI -u/a wbc tntc; ucx p Tracheitis /bronchitis (+increased secretions, no definitive PNA on CXR) -sp cx PsA (sensi pending), Esbl K.pna (S Amikacin, Ertapenem, Zosyn) -CXR: Increasing right basilar atelectasis. Other stable findings as described , including borderline cardiomegaly Sepsis 2ry to HCAP, s/p Rx -sp cx 06/21: +3 MDR PSA (S. Cefepime, Gentamicin/Amikacin) -u./a WBC 5-10, nit neg, leuk est +1, ucx 10-20K C. albicans (colonzier) -rectal wound cx: ESBL E.coli, PsA (colonizers)- no signs of infection 07/22 CoNS bacteremia- suspect contaminant 06/20 +07/22, 06/21 Neg x4; 07/13 NTD ? UTI : UCx : chinedu ( Albican and Glab. ) leukocytosis-resolved Lactic acidosis- resolved Cdiff neg 06/25 -Neg: HIV ag/ab, RPR, CrAg serum, FTA-ab Acute hypoxic resp failure s/p intubation 06/20- s/p extubation 06/25 -s/p Trach 07/16 BOOGIE Recent gastritis (dx by EGD) Hx of encephalopathy -05/22 CT head: No evidence of acute intracranial hemorrhage, mass effect or cortical edema. MRI may be obtained for more sensitive evaluation as clinically indicated. Stable chronic infarct in the right frontal lobe. Cerebral and cerebellar atrophy greater than expected for age. Clinical correlation recommended. Mild periventricular hypoattenuation suggestive of chronic ischemic microvascular changes. -previous admission:nical correlation recommended. Mild periventricular hypoattenuation suggestive of chronic ischemic microvascular changes. Small area of right frontal encephalomalacia suggestive of old infarct. -UDS neg -TSH normal -Brain MRI: Chronic and age-related changes. Old right frontal infarct. Negative for acute intracranial bleed, mass effect, or acute infarct hx of VRE and MRSA colonization HTN CKD DM2 bipolar dz/schizophrenia GERD cardiac arrhythmia Dementia CAD with prior NV MS osteoporosis asthma VIt D def Hypothyroidism HLD dysphagia s/p GT R MCA CVA with left hemiplegia Plan: - IV Diflucan d# 5 / 10 , and Amikacin INH d# 4/10 for Resp increased secretions ( PsA, ESBL Klebsiella tracheitis) -f/u repeat CXR, if PNA present will add Meropenem - 07/09 SP Cefepime d# / , and Amikacin d# 7/ -06/25 SP IV vancomycin #5, Amikacin #5 -1/6 SP Meropenem #3 -1/4 SP Amikacin x1 -switch marquez given pyuria and funguria -f/u cx -Monitor CBC/BMP, temperatures -aspiration precautions - wound care/trach care Subjective Allergies: Coded Allergies: No Known Allergies (Unverified , 05/11/17) Subjective Tm last night 101.5, afebrile since midninght no leukcoytosis u/a with pyuria. Objective Vital Signs Last 24 Hour Vital Signs Date Time Temp Pulse Resp B/P (MAP) Pulse Ox O2 Delivery O2 Flow Rate FiO2 07/17/17 08:52 73 19 30 07/17/17 08:38 88 128/66 07/17/17 08:00 99.1 87 21 142/70 100 Mechanical Ventilator 30 07/17/17 08:00 30 07/17/17 08:00 85 07/17/17 07:25 87 19 100 Mechanical Ventilator 30 07/17/17 07:20 89 19 30 07/17/17 07:19 86 19 100 Mechanical Ventilator 30 07/17/17 07:00 99.1 84 20 122/70 100 Mechanical Ventilator 30 07/17/17 06:00 99.0 87 20 132/63 100 Mechanical Ventilator 30 07/17/17 05:15 139/67 07/17/17 05:15 87 139/67 07/17/17 05:00 99.1 92 22 126/62 100 Mechanical Ventilator 30 07/17/17 04:46 87 21 30 07/17/17 04:00 98.5 81 16 139/67 100 Mechanical Ventilator 30 07/17/17 03:00 99.2 81 20 125/84 99 Mechanical Ventilator 30 07/17/17 02:58 86 16 100 Mechanical Ventilator 30 07/17/17 02:56 82 24 30 07/17/17 02:51 82 17 100 Mechanical Ventilator 30 07/17/17 02:00 99.1 84 20 141/71 100 Mechanical Ventilator 30 07/17/17 01:00 89 24 30 07/17/17 01:00 99.6 84 20 121/64 100 Mechanical Ventilator 30 07/17/17 00:14 91 127/60 07/17/17 00:00 100.1 91 20 127/60 99 Mechanical Ventilator 30 07/16/17 23:19 100.1 07/16/17 23:00 89 19 99 Mechanical Ventilator 30 07/16/17 23:00 101.0 99 20 123/56 98 Mechanical Ventilator 30 07/16/17 22:56 84 19 30 07/16/17 22:55 89 17 99 Mechanical Ventilator 30 07/16/17 22:22 130/61 07/16/17 22:00 101.1 99 20 138/67 98 Mechanical Ventilator 30 07/16/17 21:34 79 22 100 Mechanical Ventilator 30 07/16/17 21:28 83 17 30 07/16/17 21:26 83 16 100 Mechanical Ventilator 30 07/16/17 21:11 148/70 07/16/17 21:00 101.5 99 20 135/64 98 Mechanical Ventilator 30 07/16/17 20:57 99 148/70 07/16/17 19:53 99.7 99 20 148/70 98 Mechanical Ventilator 30 07/16/17 19:01 99 21 100 Mechanical Ventilator 30 07/16/17 19:00 98 20 139/67 99 Mechanical Ventilator 30 07/16/17 18:56 98 22 99 Mechanical Ventilator 30 07/16/17 18:50 98 25 30 07/16/17 18:00 93 15 125/96 100 Mechanical Ventilator 30 07/16/17 17:55 102 131/70 07/16/17 17:01 101 20 30 07/16/17 17:00 98.9 103 16 153/73 99 Mechanical Ventilator 30 07/16/17 16:00 98 16 142/71 99 Mechanical Ventilator 30 07/16/17 16:00 101 07/16/17 15:41 90 20 98 Mechanical Ventilator 30 07/16/17 15:33 98 20 30 07/16/17 15:33 88 20 98 Mechanical Ventilator 30 07/16/17 15:00 94 18 143/67 99 Mechanical Ventilator 30 07/16/17 14:50 134/62 07/16/17 14:00 90 17 120/66 99 Mechanical Ventilator 30 07/16/17 13:00 98.4 95 18 148/67 98 Mechanical Ventilator 30 07/16/17 12:25 98.4 64 18 159/64 93 Room Air 07/16/17 11:50 89 19 30 07/16/17 11:45 93 100 07/16/17 11:43 88 12 97 07/16/17 10:11 Venturi Mask 07/16/17 10:11 Venturi Mask Height (Feet): 5 Height (Inches): 9.00 Weight (Pounds): 205 Objective HEENT: atraumatic, trach in place Lungs: coarse BS Heart: RRR, no murmurs Abdomen: non-tender, active bowel sounds Extremities: no C/C/E SKin: no rashes Laboratory Tests Test 07/16/17 22:30 07/17/17 03:20 Urine Color Pale yellow Urine Appearance Turbid Urine pH 7 (4.5-8.0) Urine Specific [place] 1.005 (1.005-1.035) Urine Protein 3+ (NEGATIVE) H Urine Glucose (UA) 1+ (NEGATIVE) H Urine Ketones Negative (NEGATIVE) Urine Occult Blood 5+ (NEGATIVE) H Urine Nitrite Negative (NEGATIVE) Urine Bilirubin Negative (NEGATIVE) Urine Urobilinogen Normal MG/DL (0.0-1.0) Urine Leukocyte Esterase 3+ (NEGATIVE) H Urine RBC Tntc /HPF (0 - 0) H Urine WBC Tntc /HPF (0 - 0) H Urine Squamous Epithelial Cells Few /LPF (NONE/OCC) Urine Bacteria Few /HPF (NONE) White Blood Count 8.8 K/UL (4.8-10.8) Red Blood Count 3.04 M/UL (4.70-6.10) L Hemoglobin 8.9 G/DL (14.2-18.0) L Hematocrit 27.8 % (42.0-52.0) L Mean Corpuscular Volume 91 FL (80-99) Mean Corpuscular Hemoglobin 29.2 PG (27.0-31.0) Mean Corpuscular Hemoglobin Concent 31.9 G/DL (32.0-36.0) L Red Cell Distribution Width 14.4 % (11.6-14.8) Platelet Count 377 K/UL (150-450) Mean Platelet Volume 5.4 FL (6.5-10.1) L Neutrophils (%) (Auto) 81.1 % (45.0-75.0) H Lymphocytes (%) (Auto) 12.9 % (20.0-45.0) L Monocytes (%) (Auto) 3.2 % (1.0-10.0) Eosinophils (%) (Auto) 1.8 % (0.0-3.0) Basophils (%) (Auto) 1.0 % (0.0-2.0) Sodium Level 150 MMOL/L (136-145) H Potassium Level 4.9 MMOL/L (3.5-5.1) Chloride Level 111 MMOL/L (98-107) H Carbon Dioxide Level 29 MMOL/L (21-32) Anion Gap 11 mmol/L (5-15) Blood Urea Nitrogen 62 mg/dL (7-18) H Creatinine 2.3 MG/DL (0.55-1.30) H Estimat Glomerular Filtration Rate 28.8 mL/min (>60) Glucose Level 207 MG/DL (74-106) H Calcium Level 8.4 MG/DL (8.5-10.1) L Magnesium Level 2.5 MG/DL (1.8-2.4) H Total Bilirubin 0.2 MG/DL (0.2-1.0) Aspartate Amino Transf (AST/SGOT) 26 U/L (15-37) Alanine Aminotransferase (ALT/SGPT) 29 U/L (12-78) Alkaline Phosphatase 105 U/L (46-116) Pro-B-Type Natriuretic Peptide 4978 pg/mL (0-125) H Total Protein 6.2 G/DL (6.4-8.2) L Albumin 1.7 G/DL (3.4-5.0) L Globulin 4.5 g/dL Albumin/Globulin Ratio 0.4 (1.0-2.7) L Current Medications Medications (Trade) Dose Ordered Sig/Willem Route PRN Reason Start Time Stop Time Status Last Admin Dose Admin Acetaminophen (Tylenol) 500 mg Q6H PRN ORAL MILD PAIN (1-4). NTE 3GM/DAY 07/16/17 13:15 07/30/17 19:00 Acetaminophen (Tylenol) 650 mg DAILYPRN PRN ORAL Temp > 100.5 07/16/17 12:45 08/15/17 12:44 07/16/17 22:20 Acetaminophen (Tylenol) 650 mg Q6H PRN ORAL MODERATE PAIN (5-7) 07/16/17 13:15 07/30/17 19:00 Amikacin Sulfate (Amikin) 300 mg Q12HR@10,22 INH 07/16/17 22:00 07/21/17 21:59 07/16/17 21:26 Aspirin (ASA) 81 mg DAILY ORAL 07/17/17 09:00 07/30/17 08:59 07/17/17 08:38 Bisacodyl (Dulcolax) 10 mg DAILYPRN PRN RECTAL constipation 07/16/17 21:00 07/26/17 20:59 Clonidine HCl (Catapres Tab) 0.1 mg Q4H PRN GT bp of 160 syst and above 07/16/17 13:00 07/21/17 12:59 Collagenase (Santyl) 1 applic DAILY TOPIC 07/17/17 09:00 07/29/17 08:59 Dextrose (Dextrose 50%) STAT PRN IV Hypoglycemia 07/16/17 13:00 07/26/17 12:59 Diltiazem HCl (Cardizem) 60 mg EVERY 6 HOURS GT 07/16/17 18:00 08/15/17 17:59 07/17/17 05:15 Famotidine (Pepcid) 20 mg DAILY ORAL 07/17/17 09:00 07/22/17 08:59 07/17/17 08:38 Fluconazole/ Sodium Chloride 100 ml @ 100 mls/hr Q24H IV 07/16/17 13:00 07/20/17 12:59 07/16/17 13:08 Heparin Sodium (Porcine) (Heparin 5000 units/ml) 5,000 units EVERY 12 HOURS SUBQ 07/16/17 21:00 07/21/17 08:59 07/17/17 08:42 Hydralazine HCl (Apresoline) 50 mg Q8HR GT 07/16/17 22:00 08/15/17 21:59 07/17/17 05:15 Insulin Aspart (NovoLOG) EVERY 6 HOURS SUBQ 07/16/17 18:00 07/21/17 06:29 07/17/17 05:17 Insulin Detemir (Levemir) 15 units QHS SUBQ 07/16/17 21:00 08/03/17 20:59 07/16/17 21:01 Levalbuterol HCl (Xopenex) 1.25 mg Q4HRT HHN 07/16/17 15:00 07/20/17 10:59 07/17/17 07:19 Levothyroxine Sodium (Synthroid) 50 mcg ACBREAKFAST GT 07/17/17 06:30 07/21/17 06:29 07/17/17 05:55 Metoprolol Tartrate (Lopressor) 100 mg EVERY 12 HOURS GT 07/16/17 21:00 08/03/17 20:59 07/17/17 08:38 Morphine Sulfate (Morphine Sulfate) 2 mg Q3H PRN IVP Moderate to Severe Pain 07/16/17 17:45 07/23/17 17:44 Nitroglycerin (Ntg) 0.4 mg Q5M PRN SL CHEST PAIN 07/16/17 12:30 07/21/17 20:59 Sodium Chloride 1,000 ml @ 75 mls/hr [id number] IV 07/16/17 12:45 08/03/17 12:44 07/17/17 02:36 Hellen Hutchison M.D. Jul 17, 2017 09:27
--- NOTE | 2017-07-17 09:28 | Urology Progress Note ---
Assessment/Plan Assessment/Plan 1. Gross hematuria. 2. Benign prostatic hypertrophy history. 3. Probable neurogenic bladder. 4. Urinary retention. 5. Urinary tract infection and colonization. 6. Proteinuria. 7. Chronic renal insufficiency. marquez indwelling cath hand irrigated, patent with minimal clots diflucan as ordered f/u on cx's d/w nursing staff Subjective Allergies: Coded Allergies: No Known Allergies (Unverified , 05/11/17) Objective Last 24 Hour Vital Signs Date Time Temp Pulse Resp B/P (MAP) Pulse Ox O2 Delivery O2 Flow Rate FiO2 07/17/17 08:52 73 19 30 07/17/17 08:38 88 128/66 07/17/17 08:00 99.1 87 21 142/70 100 Mechanical Ventilator 30 07/17/17 08:00 30 07/17/17 08:00 85 07/17/17 07:25 87 19 100 Mechanical Ventilator 30 07/17/17 07:20 89 19 30 07/17/17 07:19 86 19 100 Mechanical Ventilator 30 07/17/17 07:00 99.1 84 20 122/70 100 Mechanical Ventilator 30 07/17/17 06:00 99.0 87 20 132/63 100 Mechanical Ventilator 30 07/17/17 05:15 139/67 07/17/17 05:15 87 139/67 07/17/17 05:00 99.1 92 22 126/62 100 Mechanical Ventilator 30 07/17/17 04:46 87 21 30 07/17/17 04:00 98.5 81 16 139/67 100 Mechanical Ventilator 30 07/17/17 03:00 99.2 81 20 125/84 99 Mechanical Ventilator 30 07/17/17 02:58 86 16 100 Mechanical Ventilator 30 07/17/17 02:56 82 24 30 07/17/17 02:51 82 17 100 Mechanical Ventilator 30 07/17/17 02:00 99.1 84 20 141/71 100 Mechanical Ventilator 30 07/17/17 01:00 89 24 30 07/17/17 01:00 99.6 84 20 121/64 100 Mechanical Ventilator 30 07/17/17 00:14 91 127/60 07/17/17 00:00 100.1 91 20 127/60 99 Mechanical Ventilator 30 07/16/17 23:19 100.1 07/16/17 23:00 89 19 99 Mechanical Ventilator 30 07/16/17 23:00 101.0 99 20 123/56 98 Mechanical Ventilator 30 07/16/17 22:56 84 19 30 07/16/17 22:55 89 17 99 Mechanical Ventilator 30 07/16/17 22:22 130/61 07/16/17 22:00 101.1 99 20 138/67 98 Mechanical Ventilator 30 07/16/17 21:34 79 22 100 Mechanical Ventilator 30 07/16/17 21:28 83 17 30 07/16/17 21:26 83 16 100 Mechanical Ventilator 30 07/16/17 21:11 148/70 07/16/17 21:00 101.5 99 20 135/64 98 Mechanical Ventilator 30 07/16/17 20:57 99 148/70 07/16/17 19:53 99.7 99 20 148/70 98 Mechanical Ventilator 30 07/16/17 19:01 99 21 100 Mechanical Ventilator 30 07/16/17 19:00 98 20 139/67 99 Mechanical Ventilator 30 07/16/17 18:56 98 22 99 Mechanical Ventilator 30 07/16/17 18:50 98 25 30 07/16/17 18:00 93 15 125/96 100 Mechanical Ventilator 30 07/16/17 17:55 102 131/70 07/16/17 17:01 101 20 30 07/16/17 17:00 98.9 103 16 153/73 99 Mechanical Ventilator 30 07/16/17 16:00 98 16 142/71 99 Mechanical Ventilator 30 07/16/17 16:00 101 07/16/17 15:41 90 20 98 Mechanical Ventilator 30 07/16/17 15:33 98 20 30 07/16/17 15:33 88 20 98 Mechanical Ventilator 30 07/16/17 15:00 94 18 143/67 99 Mechanical Ventilator 30 07/16/17 14:50 134/62 07/16/17 14:00 90 17 120/66 99 Mechanical Ventilator 30 07/16/17 13:00 98.4 95 18 148/67 98 Mechanical Ventilator 30 07/16/17 12:25 98.4 64 18 159/64 93 Room Air 07/16/17 11:50 89 19 30 07/16/17 11:45 93 100 07/16/17 11:43 88 12 97 07/16/17 10:11 Venturi Mask 07/16/17 10:11 Venturi Mask Intake and Output 07/16/17 07/17/17 19:00 07:00 Intake Total 175 ml 1260 ml Output Total 655 ml 1260 ml Balance -480 ml 0 ml IV Total 75 ml 900 ml Tube Feeding 100 ml 360 ml Output Urine Total 655 ml 1260 ml # Bowel Movements 1 Microbiology Date/Time Source Procedure Growth Status 07/13/17 11:45 Blood Blood Culture - Preliminary NO GROWTH AFTER 72 HOURS Resulted 07/13/17 23:15 Sputum Gram Stain - Final Resulted 07/13/17 23:15 Sputum Culture - Preliminary Pseudomonas Aeruginosa Klebsiella Pneumoniae Esbl Resulted 06/26/17 05:00 Stool Clostridium difficile Toxin Assay - Final Complete 07/12/17 08:20 Urine,Clean Catch Urine Culture - Final Scarlet Albicans Scarlet Glabrata Complete 06/20/17 23:10 Sacral Rectal Gram Stain - Final Complete 06/20/17 23:10 Wound Culture - Final Escherichia Coli - Esbl Pseudomonas Aeruginosa Complete Current Medications Medications (Trade) Dose Ordered Sig/Willem Route PRN Reason Start Time Stop Time Status Last Admin Dose Admin Acetaminophen (Tylenol) 500 mg Q6H PRN ORAL MILD PAIN (1-4). NTE 3GM/DAY 07/16/17 13:15 07/30/17 19:00 Acetaminophen (Tylenol) 650 mg DAILYPRN PRN ORAL Temp > 100.5 07/16/17 12:45 08/15/17 12:44 07/16/17 22:20 Acetaminophen (Tylenol) 650 mg Q6H PRN ORAL MODERATE PAIN (5-7) 07/16/17 13:15 07/30/17 19:00 Amikacin Sulfate (Amikin) 300 mg Q12HR@10,22 INH 07/16/17 22:00 07/21/17 21:59 07/16/17 21:26 Aspirin (ASA) 81 mg DAILY ORAL 07/17/17 09:00 07/30/17 08:59 07/17/17 08:38 Bisacodyl (Dulcolax) 10 mg DAILYPRN PRN RECTAL constipation 07/16/17 21:00 07/26/17 20:59 Clonidine HCl (Catapres Tab) 0.1 mg Q4H PRN GT bp of 160 syst and above 07/16/17 13:00 07/21/17 12:59 Collagenase (Santyl) 1 applic DAILY TOPIC 07/17/17 09:00 2/11/18 08:59 Dextrose (Dextrose 50%) STAT PRN IV Hypoglycemia 07/16/17 13:00 07/26/17 12:59 Diltiazem HCl (Cardizem) 60 mg EVERY 6 HOURS GT 07/16/17 18:00 08/15/17 17:59 07/17/17 05:15 Famotidine (Pepcid) 20 mg DAILY ORAL 07/17/17 09:00 07/22/17 08:59 07/17/17 08:38 Fluconazole/ Sodium Chloride 100 ml @ 100 mls/hr Q24H IV 07/16/17 13:00 07/20/17 12:59 07/16/17 13:08 Heparin Sodium (Porcine) (Heparin 5000 units/ml) 5,000 units EVERY 12 HOURS SUBQ 07/16/17 21:00 07/21/17 08:59 07/17/17 08:42 Hydralazine HCl (Apresoline) 50 mg Q8HR GT 07/16/17 22:00 08/15/17 21:59 07/17/17 05:15 Insulin Aspart (NovoLOG) EVERY 6 HOURS SUBQ 07/16/17 18:00 07/21/17 06:29 07/17/17 05:17 Insulin Detemir (Levemir) 15 units QHS SUBQ 07/16/17 21:00 08/03/17 20:59 07/16/17 21:01 Levalbuterol HCl (Xopenex) 1.25 mg Q4HRT HHN 07/16/17 15:00 07/20/17 10:59 07/17/17 07:19 Levothyroxine Sodium (Synthroid) 50 mcg ACBREAKFAST GT 07/17/17 06:30 07/21/17 06:29 07/17/17 05:55 Metoprolol Tartrate (Lopressor) 100 mg EVERY 12 HOURS GT 07/16/17 21:00 08/03/17 20:59 07/17/17 08:38 Morphine Sulfate (Morphine Sulfate) 2 mg Q3H PRN IVP Moderate to Severe Pain 07/16/17 17:45 07/23/17 17:44 Nitroglycerin (Ntg) 0.4 mg Q5M PRN SL CHEST PAIN 07/16/17 12:30 07/21/17 20:59 Sodium Chloride 1,000 ml @ 75 mls/hr [id number] IV 07/16/17 12:45 08/03/17 12:44 07/17/17 02:36 Laboratory Tests 07/16/17 22:30: Urine Color Pale yellow, Urine Appearance Turbid, Urine pH 7, Urine Specific [place] 1.005, Urine Protein 3+H, Urine Glucose (UA) 1+H, Urine Ketones Negative , Urine Occult Blood 5+H, Urine Nitrite Negative, Urine Bilirubin Negative, Urine Urobilinogen Normal, Urine Leukocyte Esterase 3+H, Urine RBC TntcH, Urine WBC TntcH, Urine Squamous Epithelial Cells Few, Urine Bacteria Few 07/17/17 03:20: White Blood Count 8.8, Red Blood Count 3.04L, Hemoglobin 8.9L, Hematocrit 27.8L , Mean Corpuscular Volume 91, Mean Corpuscular Hemoglobin 29.2, Mean Corpuscular Hemoglobin Concent 31.9L, Red Cell Distribution Width 14.4, Platelet Count 377, Mean Platelet Volume 5.4L, Neutrophils (%) (Auto) 81.1H, Lymphocytes (%) (Auto) 12.9L, Monocytes (%) (Auto) 3.2, Eosinophils (%) (Auto) 1.8, Basophils (%) (Auto) 1.0, Sodium Level 150H, Potassium Level 4.9, Chloride Level 111H, Carbon Dioxide Level 29, Anion Gap 11, Blood Urea Nitrogen 62H, Creatinine 2.3H, Estimat Glomerular Filtration Rate 28.8, Glucose Level 207H, Calcium Level 8.4L, Magnesium Level 2.5H, Total Bilirubin 0.2, Aspartate Amino Transf (AST/SGOT) 26, Alanine Aminotransferase (ALT/SGPT) 29, Alkaline Phosphatase 105, Pro-B-Type Natriuretic Peptide 4978H, Total Protein 6.2L, Albumin 1.7L, Globulin 4.5, Albumin/Globulin Ratio 0.4L Height (Feet): 5 Height (Inches): 9.00 Weight (Pounds): 205 Objective exam stable, marquez indwelling, urine is blood-tinged GREGJUSTINVINCE Jul 17, 2017 09:28
--- NOTE | 2017-07-17 09:32 | Pulmonolgy Critical Care Note ---
Critical Care - Asmt/Plan Problems: (1) Respiratory failure with hypoxia (2) ATN (acute tubular necrosis) (3) Urosepsis (4) Non-ST elevation (NSTEMI) myocardial infarction (5) Feeding by G-tube (6) History of CVA (cerebrovascular accident) Respiratory: monitor respiratory rate, adjust FIO2, CXR Cardiac: continue to monitor HR/BP Renal: F/U I&O, keep IV fluid Infectious Disease: check cultures Gastrointestinal: continue feedings/current rate Endocrine: monitor blood sugar, continue sliding scale insulin Hematologic: monitor H/H, transfuse if hgb<8.5 Neurologic: PRN Ativan, keep patient comfortable Affect: PRN ativan Prophylaxis: Protonix Notes Reviewed: home service advisor, cardio Discussed with: nurses, consultants, child support case officerdietary services manager - Objective Last 24 Hour Vital Signs Date Time Temp Pulse Resp B/P (MAP) Pulse Ox O2 Delivery O2 Flow Rate FiO2 07/17/17 08:52 73 19 30 07/17/17 08:38 88 128/66 07/17/17 08:00 99.1 87 21 142/70 100 Mechanical Ventilator 30 07/17/17 08:00 30 07/17/17 08:00 85 07/17/17 07:25 87 19 100 Mechanical Ventilator 30 07/17/17 07:20 89 19 30 07/17/17 07:19 86 19 100 Mechanical Ventilator 30 07/17/17 07:00 99.1 84 20 122/70 100 Mechanical Ventilator 30 07/17/17 06:00 99.0 87 20 132/63 100 Mechanical Ventilator 30 07/17/17 05:15 139/67 07/17/17 05:15 87 139/67 07/17/17 05:00 99.1 92 22 126/62 100 Mechanical Ventilator 30 07/17/17 04:46 87 21 30 07/17/17 04:00 98.5 81 16 139/67 100 Mechanical Ventilator 30 07/17/17 03:00 99.2 81 20 125/84 99 Mechanical Ventilator 30 07/17/17 02:58 86 16 100 Mechanical Ventilator 30 07/17/17 02:56 82 24 30 07/17/17 02:51 82 17 100 Mechanical Ventilator 30 07/17/17 02:00 99.1 84 20 141/71 100 Mechanical Ventilator 30 07/17/17 01:00 89 24 30 07/17/17 01:00 99.6 84 20 121/64 100 Mechanical Ventilator 30 07/17/17 00:14 91 127/60 07/17/17 00:00 100.1 91 20 127/60 99 Mechanical Ventilator 30 07/16/17 23:19 100.1 07/16/17 23:00 89 19 99 Mechanical Ventilator 30 07/16/17 23:00 101.0 99 20 123/56 98 Mechanical Ventilator 30 07/16/17 22:56 84 19 30 07/16/17 22:55 89 17 99 Mechanical Ventilator 30 07/16/17 22:22 130/61 07/16/17 22:00 101.1 99 20 138/67 98 Mechanical Ventilator 30 07/16/17 21:34 79 22 100 Mechanical Ventilator 30 07/16/17 21:28 83 17 30 07/16/17 21:26 83 16 100 Mechanical Ventilator 30 07/16/17 21:11 148/70 07/16/17 21:00 101.5 99 20 135/64 98 Mechanical Ventilator 30 07/16/17 20:57 99 148/70 07/16/17 19:53 99.7 99 20 148/70 98 Mechanical Ventilator 30 07/16/17 19:01 99 21 100 Mechanical Ventilator 30 07/16/17 19:00 98 20 139/67 99 Mechanical Ventilator 30 07/16/17 18:56 98 22 99 Mechanical Ventilator 30 07/16/17 18:50 98 25 30 07/16/17 18:00 93 15 125/96 100 Mechanical Ventilator 30 07/16/17 17:55 102 131/70 07/16/17 17:01 101 20 30 07/16/17 17:00 98.9 103 16 153/73 99 Mechanical Ventilator 30 07/16/17 16:00 98 16 142/71 99 Mechanical Ventilator 30 07/16/17 16:00 101 07/16/17 15:41 90 20 98 Mechanical Ventilator 30 07/16/17 15:33 98 20 30 07/16/17 15:33 88 20 98 Mechanical Ventilator 30 07/16/17 15:00 94 18 143/67 99 Mechanical Ventilator 30 07/16/17 14:50 134/62 07/16/17 14:00 90 17 120/66 99 Mechanical Ventilator 30 07/16/17 13:00 98.4 95 18 148/67 98 Mechanical Ventilator 30 07/16/17 12:25 98.4 64 18 159/64 93 Room Air 07/16/17 11:50 89 19 30 07/16/17 11:45 93 100 07/16/17 11:43 88 12 97 07/16/17 10:11 Venturi Mask 07/16/17 10:11 Venturi Mask Status: somnolent Condition: critical HEENT: atraumatic Neck: full ROM Lungs: chest wall tender Heart: HR/BP unstable Abdomen: soft, active bowel sounds Extremities: no C/C/E Decubiti: location Accucheck: 215 Critical Care - Subjective ICU Day: 2 Interval Events: tolerated trach yesterday FI02: 30 Vent Support Breath Rate: 6 Vent Support Mode: CPAP Vent Tidal Volume: 550 Sputum Amount: Scant PEEP: 5.0 PIP: 15 Tube Feeding Amount: 50 I&O: Intake and Output 07/16/17 07/17/17 19:00 07:00 Intake Total 175 ml 1260 ml Output Total 655 ml 1260 ml Balance -480 ml 0 ml IV Total 75 ml 900 ml Tube Feeding 100 ml 360 ml Output Urine Total 655 ml 1260 ml # Bowel Movements 1 CXR: pending ET-Tube: 7.5 ET Position: 25 Labs: Laboratory Tests Test 07/16/17 22:30 07/17/17 03:20 Urine Color Pale yellow Urine Appearance Turbid Urine pH 7 (4.5-8.0) Urine Specific [place] 1.005 (1.005-1.035) Urine Protein 3+ (NEGATIVE) H Urine Glucose (UA) 1+ (NEGATIVE) H Urine Ketones Negative (NEGATIVE) Urine Occult Blood 5+ (NEGATIVE) H Urine Nitrite Negative (NEGATIVE) Urine Bilirubin Negative (NEGATIVE) Urine Urobilinogen Normal MG/DL (0.0-1.0) Urine Leukocyte Esterase 3+ (NEGATIVE) H Urine RBC Tntc /HPF (0 - 0) H Urine WBC Tntc /HPF (0 - 0) H Urine Squamous Epithelial Cells Few /LPF (NONE/OCC) Urine Bacteria Few /HPF (NONE) White Blood Count 8.8 K/UL (4.8-10.8) Red Blood Count 3.04 M/UL (4.70-6.10) L Hemoglobin 8.9 G/DL (14.2-18.0) L Hematocrit 27.8 % (42.0-52.0) L Mean Corpuscular Volume 91 FL (80-99) Mean Corpuscular Hemoglobin 29.2 PG (27.0-31.0) Mean Corpuscular Hemoglobin Concent 31.9 G/DL (32.0-36.0) L Red Cell Distribution Width 14.4 % (11.6-14.8) Platelet Count 377 K/UL (150-450) Mean Platelet Volume 5.4 FL (6.5-10.1) L Neutrophils (%) (Auto) 81.1 % (45.0-75.0) H Lymphocytes (%) (Auto) 12.9 % (20.0-45.0) L Monocytes (%) (Auto) 3.2 % (1.0-10.0) Eosinophils (%) (Auto) 1.8 % (0.0-3.0) Basophils (%) (Auto) 1.0 % (0.0-2.0) Sodium Level 150 MMOL/L (136-145) H Potassium Level 4.9 MMOL/L (3.5-5.1) Chloride Level 111 MMOL/L (98-107) H Carbon Dioxide Level 29 MMOL/L (21-32) Anion Gap 11 mmol/L (5-15) Blood Urea Nitrogen 62 mg/dL (7-18) H Creatinine 2.3 MG/DL (0.55-1.30) H Estimat Glomerular Filtration Rate 28.8 mL/min (>60) Glucose Level 207 MG/DL (74-106) H Calcium Level 8.4 MG/DL (8.5-10.1) L Magnesium Level 2.5 MG/DL (1.8-2.4) H Total Bilirubin 0.2 MG/DL (0.2-1.0) Aspartate Amino Transf (AST/SGOT) 26 U/L (15-37) Alanine Aminotransferase (ALT/SGPT) 29 U/L (12-78) Alkaline Phosphatase 105 U/L (46-116) Pro-B-Type Natriuretic Peptide 4978 pg/mL (0-125) H Total Protein 6.2 G/DL (6.4-8.2) L Albumin 1.7 G/DL (3.4-5.0) L Globulin 4.5 g/dL Albumin/Globulin Ratio 0.4 (1.0-2.7) L JESSE ZAVALA Jul 17, 2017 09:32
[2017-07-17] MEDS: Amikacin for Inhalation 2ML INH SCH ×2 (10:22→22:02)
--- NOTE | 2017-07-17 10:43 | Wound Care Consultation ---
Wound Assessment Wound Assessment #1: Wound Number: 1 Wound Present on Admission: No New Wound: Yes Status Change of Wound: No Wound Location Body Site Modif: right Wound Location Body Site: toe - 1st toe Wound Type: pressure ulcer Victor Manuel Test: Does not Victor Manuel Pressure Ulcer Stage: Deep Tissue Injury Wound Thickness: Full Thickness Wound Length: 1.0 Wound Width: 1.0 Wound Depth: utd Percent of Wound Purple/Maroon: 100 Wound Drainage Amount: None Wound Drainage Odor: None/Absent Tissue Surrounding Wound: Intact Wound General Appearance: Reddened Wound Assessment #2: Wound Number: 2 Wound Present on Admission: No New Wound: Yes Status Change of Wound: No Wound Location Body Site Modif: right Wound Location Body Site: toe - 2nd Wound Type: pressure ulcer Victor Manuel Test: Does not Victor Manuel Pressure Ulcer Stage: Deep Tissue Injury Wound Thickness: Full Thickness Wound Length: 1.0 Wound Width: 1.0 Wound Depth: utd Percent of Wound Purple/Maroon: 100 Wound Drainage Amount: None Wound Drainage Odor: None/Absent Tissue Surrounding Wound: Intact Wound General Appearance: Reddened Wound Assessment #3: Wound Number: 3 Wound Present on Admission: No New Wound: Yes Status Change of Wound: No Wound Location Body Site Modif: left, plantar Wound Location Body Site: foot Wound Type: pressure ulcer Victor Manuel Test: Does not Victor Manuel Pressure Ulcer Stage: Deep Tissue Injury Wound Thickness: Full Thickness Wound Length: 3.0 Wound Width: 2.0 Wound Depth: utd Percent of Wound Purple/Maroon: 100 Wound Drainage Amount: None Wound Drainage Odor: None/Absent Tissue Surrounding Wound: Intact Wound General Appearance: Reddened Wound Comment Reassessment #1 Left lateral malleolus DTI pressure ulcer. -Skin intact, no further deterioration. #2 Left medial malleolus DTI pressure ulcer. Skin intact, no further deterioration. #3 Left lateral foot DTI pressure ulcer. Skin intact, no further deterioration. #4 Left medial foot scattered DTI Revealed as unstageable pressure ulcer. No deterioration noted at this time #5 Left heel DTI pressure ulcer. Skin intact, no further deterioration. #6 Right heel DTI Revealed as unstageable pressure ulcer now appearing stage 4 pressure ulcer, noted same size 70% pink,20% brown,10%yellow, no odor, moderate serosanguineous drainage. #7 Right lateral malleolus DTI Pressure ulcer. Skin intact, no further deterioration.follow protocol order #8 Right dorsal foot DTI pressure ulcer. Skin intact, no further deterioration. #9 Right medial malleolus SDTI pressure ulcer. Skin intact, no further deterioration. #10 Sacrococcygeal unstageable pressure ulcer. No deterioration noted at this time noted decrease in maroon color 20% ,30% yellow slough,50% pink wound bed.continue as ordered, offload affected area. #11 Chemical burn on perineal area. Good progress noted #12 right 1st toe deep tissue injury.-intact #13 right 2nd toe deep tissue injury.-intact #14 left plantar foot deep tissue injury.-intact Reassessed this Pt today No deterioration noted to admitted wounds. Will cont the same wound care treatment and recommendation ,however noted new DTI sites which remain dry and intact at this time.- follow protocol order, offload. Recommendation -Local wound care per protocol -Keep clean and dry -Optimize nutrition -Turn and reposition -Offload both heels -Heel protector on both heels -Low air loss P200 mattress -Assess and f/u accordingly for any changes JEFFREY KIRKLAND Jul 17, 2017 10:43
--- NOTE | 2017-07-17 10:58 | Diagnostic Imaging Report ---
Indication: Dyspnea Technique: One view of the chest Comparison: 07/13/2017 Findings: Interim tracheostomy. Better inspiration currently. Decreased right mid and lower lung linear opacities largely cleared. No definite infiltrates or effusions currently. Tracheostomy remains. The heart size is normal. No pneumothorax or pneumomediastinum Impression: Interim tracheostomy placement. No radiographically evident complication No acute process currently. Improved aeration since previous exam
--- NOTE | 2017-07-17 14:23 | General Progress Note ---
Progress Note Progress Note Surgery: doing well. vent settings minimized since surgery. on spontaneous. moving towards trach collar. secretions still excessive but fortunately airway protected with trach balloon up. -Trach care and management. -wean to trach collar as tolerated. Judah Henao Jul 17, 2017 14:23
[2017-07-17] MEDS ORDERED: Tubing IV Secondary IV ONE (15:02)
[2017-07-17] MEDS ORDERED: 1/2 NS 1000ml IV ONE (15:02)
--- NOTE | 2017-07-17 16:22 | Nephrology Progress Note ---
Assessment/Plan Problem List: (1) Acute renal failure (2) Respiratory failure requiring intubation (3) Urosepsis (4) Anemia Assessment: worsening (5) Hypoalbuminemia Assessment BOOGIE (acute kidney injury), Cr 2.3 H&H lower Respiratory failure no trached Respiratory failure with hypoxia Aspiration pneumonia, Urosepsis Anemia ACS (acute coronary syndrome), Non St Elevation LA CHF (congestive heart failure) Acute encephalopathy GT feeding LLL atelectesis worsening, Plan plan: Post op / Trach care transfusion for low H&H as needed avoid Nephrotoxics monitor renal parameters Keep BP and BS in check Optimize pulmonary and cardiac support Subjective ROS Limited/Unobtainable: Yes Objective Objective Last 24 Hour Vital Signs Date Time Temp Pulse Resp B/P (MAP) Pulse Ox O2 Delivery O2 Flow Rate FiO2 07/17/17 16:00 99.8 88 25 128/54 99 Mechanical Ventilator 30 07/17/17 16:00 85 07/17/17 16:00 30 07/17/17 15:00 87 24 132/60 99 Mechanical Ventilator 30 07/17/17 14:53 85 26 100 Mechanical Ventilator 30 07/17/17 14:45 86 26 99 Mechanical Ventilator 30 07/17/17 14:36 83 22 30 07/17/17 14:00 84 21 127/57 99 Mechanical Ventilator 30 07/17/17 13:39 83 22 30 07/17/17 13:36 126/66 07/17/17 13:00 82 21 126/66 100 Mechanical Ventilator 30 07/17/17 12:00 99.1 81 23 125/61 100 Mechanical Ventilator 30 07/17/17 12:00 30 07/17/17 12:00 82 07/17/17 11:33 81 19 100 Mechanical Ventilator 30 07/17/17 11:27 79 130/65 07/17/17 11:23 78 23 99 Mechanical Ventilator 30 07/17/17 11:00 78 20 130/65 100 Mechanical Ventilator 30 07/17/17 10:27 78 23 30 07/17/17 10:24 75 21 100 Mechanical Ventilator 30 07/17/17 10:23 74 21 100 Mechanical Ventilator 30 07/17/17 10:00 74 21 130/69 100 Mechanical Ventilator 30 07/17/17 09:00 71 20 123/68 100 Mechanical Ventilator 30 07/17/17 08:52 73 19 30 07/17/17 08:38 88 128/66 07/17/17 08:00 99.1 87 21 142/70 100 Mechanical Ventilator 30 07/17/17 08:00 30 07/17/17 08:00 85 07/17/17 07:25 87 19 100 Mechanical Ventilator 30 07/17/17 07:20 89 19 30 07/17/17 07:19 86 19 100 Mechanical Ventilator 30 07/17/17 07:00 99.1 84 20 122/70 100 Mechanical Ventilator 30 07/17/17 06:00 99.0 87 20 132/63 100 Mechanical Ventilator 30 07/17/17 05:15 139/67 07/17/17 05:15 87 139/67 07/17/17 05:00 99.1 92 22 126/62 100 Mechanical Ventilator 30 07/17/17 04:46 87 21 30 07/17/17 04:00 98.5 81 16 139/67 100 Mechanical Ventilator 30 07/17/17 03:00 99.2 81 20 125/84 99 Mechanical Ventilator 30 07/17/17 02:58 86 16 100 Mechanical Ventilator 30 07/17/17 02:56 82 24 30 07/17/17 02:51 82 17 100 Mechanical Ventilator 30 07/17/17 02:00 99.1 84 20 141/71 100 Mechanical Ventilator 30 07/17/17 01:00 89 24 30 07/17/17 01:00 99.6 84 20 121/64 100 Mechanical Ventilator 30 07/17/17 00:14 91 127/60 07/17/17 00:00 100.1 91 20 127/60 99 Mechanical Ventilator 30 07/16/17 23:19 100.1 07/16/17 23:00 89 19 99 Mechanical Ventilator 30 07/16/17 23:00 101.0 99 20 123/56 98 Mechanical Ventilator 30 07/16/17 22:56 84 19 30 07/16/17 22:55 89 17 99 Mechanical Ventilator 30 07/16/17 22:22 130/61 07/16/17 22:00 101.1 99 20 138/67 98 Mechanical Ventilator 30 07/16/17 21:34 79 22 100 Mechanical Ventilator 30 07/16/17 21:28 83 17 30 07/16/17 21:26 83 16 100 Mechanical Ventilator 30 07/16/17 21:11 148/70 07/16/17 21:00 101.5 99 20 135/64 98 Mechanical Ventilator 30 07/16/17 20:57 99 148/70 07/16/17 19:53 99.7 99 20 148/70 98 Mechanical Ventilator 30 07/16/17 19:01 99 21 100 Mechanical Ventilator 30 07/16/17 19:00 98 20 139/67 99 Mechanical Ventilator 30 07/16/17 18:56 98 22 99 Mechanical Ventilator 30 07/16/17 18:50 98 25 30 07/16/17 18:00 93 15 125/96 100 Mechanical Ventilator 30 07/16/17 17:55 102 131/70 07/16/17 17:01 101 20 30 07/16/17 17:00 98.9 103 16 153/73 99 Mechanical Ventilator 30 Intake and Output 07/16/17 07/17/17 19:00 07:00 Intake Total 175 ml 1260 ml Output Total 655 ml 1260 ml Balance -480 ml 0 ml IV Total 75 ml 900 ml Tube Feeding 100 ml 360 ml Output Urine Total 655 ml 1260 ml # Bowel Movements 1 Laboratory Tests 07/16/17 22:30: Urine Color Pale yellow, Urine Appearance Turbid, Urine pH 7, Urine Specific [place] 1.005, Urine Protein 3+H, Urine Glucose (UA) 1+H, Urine Ketones Negative , Urine Occult Blood 5+H, Urine Nitrite Negative, Urine Bilirubin Negative, Urine Urobilinogen Normal, Urine Leukocyte Esterase 3+H, Urine RBC TntcH, Urine WBC TntcH, Urine Squamous Epithelial Cells Few, Urine Bacteria Few 07/17/17 03:20: White Blood Count 8.8, Red Blood Count 3.04L, Hemoglobin 8.9L, Hematocrit 27.8L , Mean Corpuscular Volume 91, Mean Corpuscular Hemoglobin 29.2, Mean Corpuscular Hemoglobin Concent 31.9L, Red Cell Distribution Width 14.4, Platelet Count 377, Mean Platelet Volume 5.4L, Neutrophils (%) (Auto) 81.1H, Lymphocytes (%) (Auto) 12.9L, Monocytes (%) (Auto) 3.2, Eosinophils (%) (Auto) 1.8, Basophils (%) (Auto) 1.0, Sodium Level 150H, Potassium Level 4.9, Chloride Level 111H, Carbon Dioxide Level 29, Anion Gap 11, Blood Urea Nitrogen 62H, Creatinine 2.3H, Estimat Glomerular Filtration Rate 28.8, Glucose Level 207H, Calcium Level 8.4L, Magnesium Level 2.5H, Total Bilirubin 0.2, Aspartate Amino Transf (AST/SGOT) 26, Alanine Aminotransferase (ALT/SGPT) 29, Alkaline Phosphatase 105, Pro-B-Type Natriuretic Peptide 4978H, Total Protein 6.2L, Albumin 1.7L, Globulin 4.5, Albumin/Globulin Ratio 0.4L Height (Feet): 5 Height (Inches): 9.00 Weight (Pounds): 205 General Appearance: no apparent distress, lethargic Cardiovascular: normal rate Respiratory/Chest: decreased breath sounds Abdomen: soft Objective no other changes GARCÍA READ Jul 17, 2017 16:22
[2017-07-17] MEDS ORDERED: Nitroglycerin Subl 0.4mg tab SL PRN (18:00)
[2017-07-17] MEDS ORDERED: Acetaminophen 500mg (ES) tab ORAL PRN (19:15)
[2017-07-17] MEDS ORDERED: Morphine Sulfate 4mg/ml Inj IVP PRN (20:45)
[2017-07-17] MEDS ORDERED: Levemir Flexpen SUBQ SCH (21:00)
--- NOTE | 2017-07-17 22:40 | General Progress Note ---
Assessment/Plan Status: stable, unchanged Assessment/Plan #. Anemia secondary to chronic disease. --> Anemia workup reviewed. --> Hemoglobin has been stable and prbc not needed at this time --> Blood transfusion not required unless symptomatic or hgb <7. Currently >9 --> Trend cbc daily. #. Coagulopathy, malnutrition and vitamin K deficiency. --> administer vitamin K as needed. --> Goal INR between 2 and 3 --> Trend levels daily. #. Leukocytosis, likely secondary to underlying infection, sepsis, and antibiotics. --> has resolved, wbc count wnl --> S/P vancomycin. #. Thrombocytosis, reactive. --> Resolved. Monitor closely. #. Acute hypoxemia, requiring intubation. --> S/P tracheostomy #. Acute kidney injury. #. Dysphagia with gastrostomy tube. #. Cerebrovascular accident with right-sided hemiplegia. #. Acute toxic metabolic encephalopathy. #. Hypothyroidism. #. Atelectasis. --> Chest Xray reveals worsening Subjective Date patient seen: Jul 17, 2017 Constitutional: Denies: no symptoms, chills, diaphoresis, fever, malaise, weakness, other HEENT: Denies: no symptoms, eye pain, blurred vision, tearing, double vision, ear pain, ear discharge, nose pain, nose congestion, throat pain, throat swelling, mouth pain, mouth swelling, other Cardiovascular: Denies: no symptoms, chest pain, edema, irregular heart rate, lightheadedness, palpitations, syncope, other Respiratory: Denies: no symptoms, cough, orthopnea, shortness of breath, SOB with excertion, SOB at rest, sputum, stridor, wheezing, other Gastrointestinal/Abdominal: Denies: no symptoms, abdomen distended, abdominal pain, black stools, tarry stools, blood in stool, constipated, diarrhea, difficulty swallowing, nausea, poor appetite, poor fluid intake, rectal bleeding , vomiting, other Genitourinary: Denies: no symptoms, burning, discharge, frequency, flank pain, hematuria, incontinence, pain, urgency, other Hematologic/Lymphatic: Reports: anemia Allergies: Coded Allergies: No Known Allergies (Unverified , 05/11/17) Subjective S/P trach placement. No fever or chills. Objective Last 24 Hour Vital Signs Date Time Temp Pulse Resp B/P (MAP) Pulse Ox O2 Delivery O2 Flow Rate FiO2 07/17/17 22:13 129/70 07/17/17 22:04 77 17 100 Mechanical Ventilator 30 07/17/17 22:03 77 17 30 07/17/17 22:00 98.1 100 22 129/70 100 Mechanical Ventilator 30 07/17/17 21:02 90 130/71 07/17/17 20:13 85 22 100 Mechanical Ventilator 30 07/17/17 20:00 30 07/17/17 20:00 98.1 89 22 134/67 99 Mechanical Ventilator 30 07/17/17 19:55 82 20 98 Mechanical Ventilator 30 07/17/17 19:52 82 20 30 07/17/17 17:19 90 24 30 07/17/17 17:18 92 130/71 07/17/17 17:00 99.7 90 22 130/71 100 Mechanical Ventilator 30 07/17/17 16:00 99.8 88 25 128/54 99 Mechanical Ventilator 30 07/17/17 16:00 85 07/17/17 16:00 30 07/17/17 15:00 87 24 132/60 99 Mechanical Ventilator 30 07/17/17 14:53 85 26 100 Mechanical Ventilator 30 07/17/17 14:45 86 26 99 Mechanical Ventilator 30 07/17/17 14:36 83 22 30 07/17/17 14:00 84 21 127/57 99 Mechanical Ventilator 30 07/17/17 13:39 83 22 30 07/17/17 13:36 126/66 07/17/17 13:00 82 21 126/66 100 Mechanical Ventilator 30 07/17/17 12:00 99.1 81 23 125/61 100 Mechanical Ventilator 30 07/17/17 12:00 30 07/17/17 12:00 82 07/17/17 11:33 81 19 100 Mechanical Ventilator 30 07/17/17 11:27 79 130/65 07/17/17 11:23 78 23 99 Mechanical Ventilator 30 07/17/17 11:00 78 20 130/65 100 Mechanical Ventilator 30 07/17/17 10:27 78 23 30 07/17/17 10:24 75 21 100 Mechanical Ventilator 30 07/17/17 10:23 74 21 100 Mechanical Ventilator 30 07/17/17 10:00 74 21 130/69 100 Mechanical Ventilator 30 07/17/17 09:00 71 20 123/68 100 Mechanical Ventilator 30 07/17/17 08:52 73 19 30 07/17/17 08:38 88 128/66 07/17/17 08:00 99.1 87 21 142/70 100 Mechanical Ventilator 30 07/17/17 08:00 30 07/17/17 08:00 85 07/17/17 07:25 87 19 100 Mechanical Ventilator 30 07/17/17 07:20 89 19 30 07/17/17 07:19 86 19 100 Mechanical Ventilator 30 07/17/17 07:00 99.1 84 20 122/70 100 Mechanical Ventilator 30 07/17/17 06:00 99.0 87 20 132/63 100 Mechanical Ventilator 30 07/17/17 05:15 139/67 07/17/17 05:15 87 139/67 07/17/17 05:00 99.1 92 22 126/62 100 Mechanical Ventilator 30 07/17/17 04:46 87 21 30 07/17/17 04:00 98.5 81 16 139/67 100 Mechanical Ventilator 30 07/17/17 03:00 99.2 81 20 125/84 99 Mechanical Ventilator 30 07/17/17 02:58 86 16 100 Mechanical Ventilator 30 07/17/17 02:56 82 24 30 07/17/17 02:51 82 17 100 Mechanical Ventilator 30 07/17/17 02:00 99.1 84 20 141/71 100 Mechanical Ventilator 30 07/17/17 01:00 89 24 30 07/17/17 01:00 99.6 84 20 121/64 100 Mechanical Ventilator 30 07/17/17 00:14 91 127/60 07/17/17 00:00 100.1 91 20 127/60 99 Mechanical Ventilator 30 07/16/17 23:19 100.1 07/16/17 23:00 89 19 99 Mechanical Ventilator 30 07/16/17 23:00 101.0 99 20 123/56 98 Mechanical Ventilator 30 07/16/17 22:56 84 19 30 07/16/17 22:55 89 17 99 Mechanical Ventilator 30 Intake and Output 07/16/17 07/17/17 19:00 07:00 Intake Total 175 ml 1260 ml Output Total 655 ml 1260 ml Balance -480 ml 0 ml IV Total 75 ml 900 ml Tube Feeding 100 ml 360 ml Output Urine Total 655 ml 1260 ml # Bowel Movements 1 Laboratory Tests 07/17/17 03:20: White Blood Count 8.8, Red Blood Count 3.04L, Hemoglobin 8.9L, Hematocrit 27.8L , Mean Corpuscular Volume 91, Mean Corpuscular Hemoglobin 29.2, Mean Corpuscular Hemoglobin Concent 31.9L, Red Cell Distribution Width 14.4, Platelet Count 377, Mean Platelet Volume 5.4L, Neutrophils (%) (Auto) 81.1H, Lymphocytes (%) (Auto) 12.9L, Monocytes (%) (Auto) 3.2, Eosinophils (%) (Auto) 1.8, Basophils (%) (Auto) 1.0, Sodium Level 150H, Potassium Level 4.9, Chloride Level 111H, Carbon Dioxide Level 29, Anion Gap 11, Blood Urea Nitrogen 62H, Creatinine 2.3H, Estimat Glomerular Filtration Rate 28.8, Glucose Level 207H, Calcium Level 8.4L, Magnesium Level 2.5H, Total Bilirubin 0.2, Aspartate Amino Transf (AST/SGOT) 26, Alanine Aminotransferase (ALT/SGPT) 29, Alkaline Phosphatase 105, Pro-B-Type Natriuretic Peptide 4978H, Total Protein 6.2L, Albumin 1.7L, Globulin 4.5, Albumin/Globulin Ratio 0.4L Height (Feet): 5 Height (Inches): 9.00 Weight (Pounds): 205 General Appearance: confused Respiratory/Chest: decreased breath sounds Dejan Copeland Jul 17, 2017 22:40
[2017-07-18] VITALS: BP 134/69
[2017-07-18] MEDS: dilTIAZem HCl 60mg tab GT SCH ×4 (00:09→18:36)
[2017-07-18] MEDS: Levalbuterol Inh UD 1.25mg/0.5ml HHN SCH ×5 (03:55→19:33)
[2017-07-18 04:00] VITALS: BP 145/67
[2017-07-18] MEDS: HydrALAZINE 25mg tab GT SCH ×2 (06:08→13:55)
[2017-07-18] MEDS: NovoLOG Insulin Flexpen SUBQ SCH ×3 (06:09→18:40)
[2017-07-18 06:21] LABS: BASOPHILS % (AUTO) 0.7 % (0.0-2.0); EOSINOPHILS % (AUTO) 3.2 % (0.0-3.0); HEMATOCRIT 26.3 % (42.0-52.0); HEMOGLOBIN 8.2 G/DL (14.2-18.0); LYMPHOCYTES % (AUTO) 11.7 % (20.0-45.0); MEAN CORPUSCULAR VOLUME 91 FL (80-99); MONOCYTES % (AUTO) 3.6 % (1.0-10.0); NEUTROPHILS % (AUTO) 80.8 % (45.0-75.0); PLATELET COUNT 442 K/UL (150-450); RED BLOOD COUNT 2.88 M/UL (4.70-6.10); RED CELL DISTRIBUTION WIDTH 14.4 % (11.6-14.8); WHITE BLOOD COUNT 10.7 K/UL (4.8-10.8)
[2017-07-18 06:59] LABS: ALANINE AMINOTRANSFERASE 22 U/L (12-78); ALBUMIN 1.7 G/DL (3.4-5.0); ALBUMIN/GLOBULIN RATIO 0.3 (1.0-2.7); ALKALINE PHOSPHATASE 112 U/L (46-116); ANION GAP 7 mmol/L (5-15); ASPARTATE AMINO TRANSFERASE 22 U/L (15-37); BILIRUBIN,TOTAL 0.2 MG/DL (0.2-1.0); BLOOD UREA NITROGEN 61 mg/dL (7-18); CALCIUM 8.3 MG/DL (8.5-10.1); CARBON DIOXIDE 31 MMOL/L (21-32); CHLORIDE 109 MMOL/L (98-107); CREATININE 2.2 MG/DL (0.55-1.30); PHOSPHORUS 4.7 MG/DL (2.5-4.9); POTASSIUM 4.4 MMOL/L (3.5-5.1); SODIUM 147 MMOL/L (136-145)
[2017-07-18 08:00] VITALS: BP 141/68
[2017-07-18] MEDS ORDERED: Aspirin Baby 81mg ORAL SCH (09:00)
--- NOTE | 2017-07-18 09:18 | General Progress Note ---
Progress Note Progress Note Surgery: downgraded from ICU. doing well. on minimal vent settings. still with secretions but safe given trach so cannot aspirate. -wean to trach collar -trach care and management -can remove sutures in 1 week. Judah Henao Jul 18, 2017 09:18
[2017-07-18] MEDS: Heparin 5000 units/ml inj SUBQ SCH (09:20)
[2017-07-18] MEDS: Amikacin for Inhalation 2ML INH SCH (09:24)
--- NOTE | 2017-07-18 09:25 | Urology Progress Note ---
Assessment/Plan Assessment/Plan 1. Gross hematuria. 2. Benign prostatic hypertrophy history. 3. Probable neurogenic bladder. 4. Urinary retention. 5. Urinary tract infection and colonization. 6. Proteinuria. 7. Chronic renal insufficiency. marquez indwelling cath hand irrigated, patent with minimal clots diflucan as ordered f/u on cx's d/w nursing staff Subjective Allergies: Coded Allergies: No Known Allergies (Unverified , 05/11/17) Objective Last 24 Hour Vital Signs Date Time Temp Pulse Resp B/P (MAP) Pulse Ox O2 Delivery O2 Flow Rate FiO2 07/18/17 09:19 85 141/68 07/18/17 09:16 83 19 30 07/18/17 08:07 90 20 100 Mechanical Ventilator 30 07/18/17 08:00 88 20 100 Mechanical Ventilator 30 07/18/17 06:50 88 20 30 07/18/17 06:08 145/67 07/18/17 06:08 82 145/67 07/18/17 05:23 82 20 30 07/18/17 04:10 84 20 100 Mechanical Ventilator 30 07/18/17 04:00 88 07/18/17 04:00 98.7 87 20 145/67 99 Mechanical Ventilator 30 07/18/17 04:00 30 07/18/17 03:54 87 27 98 Mechanical Ventilator 30 07/18/17 03:53 88 26 30 07/18/17 01:48 78 19 30 07/18/17 00:09 80 134/69 07/18/17 00:00 30 07/18/17 00:00 98.5 80 23 134/69 99 Mechanical Ventilator 30 07/18/17 00:00 82 07/17/17 23:16 87 26 100 Mechanical Ventilator 30 07/17/17 23:06 72 10 30 07/17/17 23:06 72 17 99 Mechanical Ventilator 30 07/17/17 22:20 78 21 100 Mechanical Ventilator 30 07/17/17 22:13 129/70 07/17/17 22:04 77 17 100 Mechanical Ventilator 30 07/17/17 22:03 77 17 30 07/17/17 22:00 98.1 100 22 129/70 100 Mechanical Ventilator 30 07/17/17 21:02 90 130/71 07/17/17 20:13 85 22 100 Mechanical Ventilator 30 07/17/17 20:00 30 07/17/17 20:00 85 07/17/17 20:00 98.1 89 22 134/67 99 Mechanical Ventilator 30 07/17/17 19:55 82 20 98 Mechanical Ventilator 30 07/17/17 19:52 82 20 30 07/17/17 17:19 90 24 30 07/17/17 17:18 92 130/71 07/17/17 17:00 99.7 90 22 130/71 100 Mechanical Ventilator 30 07/17/17 16:00 99.8 88 25 128/54 99 Mechanical Ventilator 30 07/17/17 16:00 85 07/17/17 16:00 30 07/17/17 15:00 87 24 132/60 99 Mechanical Ventilator 30 07/17/17 14:53 85 26 100 Mechanical Ventilator 30 07/17/17 14:45 86 26 99 Mechanical Ventilator 30 07/17/17 14:36 83 22 30 07/17/17 14:00 84 21 127/57 99 Mechanical Ventilator 30 07/17/17 13:39 83 22 30 07/17/17 13:36 126/66 07/17/17 13:00 82 21 126/66 100 Mechanical Ventilator 30 07/17/17 12:00 99.1 81 23 125/61 100 Mechanical Ventilator 30 07/17/17 12:00 30 07/17/17 12:00 82 07/17/17 11:33 81 19 100 Mechanical Ventilator 30 07/17/17 11:27 79 130/65 07/17/17 11:23 78 23 99 Mechanical Ventilator 30 07/17/17 11:00 78 20 130/65 100 Mechanical Ventilator 30 07/17/17 10:27 78 23 30 07/17/17 10:24 75 21 100 Mechanical Ventilator 30 07/17/17 10:23 74 21 100 Mechanical Ventilator 30 07/17/17 10:00 74 21 130/69 100 Mechanical Ventilator 30 Intake and Output 07/17/17 07/18/17 19:00 07:00 Intake Total 1535 ml 1675 ml Output Total 895 ml 1150 ml Balance 640 ml 525 ml Free Water 130 ml IV Total 675 ml 900 ml Tube Feeding 550 ml 525 ml Other 180 ml 250 ml Output Urine Total 895 ml 1150 ml # Bowel Movements 1 1 Current Medications Medications (Trade) Dose Ordered Sig/Willem Route PRN Reason Start Time Stop Time Status Last Admin Dose Admin Acetaminophen (Tylenol) 500 mg Q6H PRN ORAL Mild Pain (Pain Scale 1-3) 07/17/17 19:15 07/30/17 19:00 Acetaminophen (Tylenol) 650 mg DAILYPRN PRN ORAL Temp > 100.5 07/17/17 19:00 08/16/17 18:59 Acetaminophen (Tylenol) 650 mg Q6H PRN ORAL Moderate Pain (Pain Scale 4-6) 07/17/17 19:15 07/30/17 19:00 Amikacin Sulfate (Amikin) 300 mg Q12HR@10,22 INH 07/17/17 22:00 07/21/17 21:59 07/17/17 22:02 Aspirin (ASA) 81 mg DAILY ORAL 07/18/17 09:00 07/30/17 08:59 07/18/17 09:19 Bisacodyl (Dulcolax) 10 mg DAILYPRN PRN RECTAL constipation 07/17/17 19:00 07/26/17 18:59 Clonidine HCl (Catapres Tab) 0.1 mg Q4H PRN GT bp of 160 syst and above 07/17/17 19:00 07/21/17 18:59 Collagenase (Santyl) 1 applic DAILY TOPIC 07/18/17 09:00 07/29/17 08:59 Dextrose (Dextrose 50%) STAT PRN IV Hypoglycemia 07/17/17 19:00 08/16/17 18:59 Diltiazem HCl (Cardizem) 60 mg EVERY 6 HOURS GT 07/18/17 00:00 08/17/17 00:00 07/18/17 06:08 Famotidine (Pepcid) 20 mg DAILY ORAL 07/18/17 09:00 07/22/17 08:59 07/18/17 09:19 Fluconazole/ Sodium Chloride 100 ml @ 100 mls/hr Q24H IV 07/18/17 13:00 07/20/17 12:59 Heparin Sodium (Porcine) (Heparin 5000 units/ml) 5,000 units EVERY 12 HOURS SUBQ 07/17/17 21:00 07/21/17 08:59 07/18/17 09:20 Hydralazine HCl (Apresoline) 50 mg Q8HR GT 07/17/17 22:00 08/15/17 21:59 07/18/17 06:08 Insulin Aspart (NovoLOG) EVERY 6 HOURS SUBQ 07/18/17 00:00 08/17/17 00:00 07/18/17 06:09 Insulin Detemir (Levemir) 15 units QHS SUBQ 07/17/17 21:00 08/03/17 20:59 07/17/17 21:04 Levalbuterol HCl (Xopenex) 1.25 mg Q4HRT HHN 07/17/17 19:00 07/20/17 10:59 07/18/17 08:04 Levothyroxine Sodium (Synthroid) 50 mcg ACBREAKFAST GT 07/18/17 06:30 07/21/17 06:29 07/18/17 06:08 Metoprolol Tartrate (Lopressor) 100 mg EVERY 12 HOURS GT 07/17/17 21:00 08/03/17 20:59 07/18/17 09:19 Morphine Sulfate (Morphine Sulfate) 2 mg Q3H PRN IVP Severe Pain (Pain Scale 7-10) 07/17/17 20:45 07/23/17 17:44 Nitroglycerin (Ntg) 0.4 mg Q5M PRN SL CHEST PAIN 07/17/17 18:00 07/21/17 20:59 Sodium Chloride 1,000 ml @ 75 mls/hr [id number] IV 07/17/17 19:00 08/03/17 18:59 07/18/17 06:10 Current Medications Medications (Trade) Dose Ordered Sig/Willem Route PRN Reason Start Time Stop Time Status Last Admin Dose Admin Acetaminophen (Tylenol) 500 mg Q6H PRN ORAL Mild Pain (Pain Scale 1-3) 07/17/17 19:15 07/30/17 19:00 Acetaminophen (Tylenol) 650 mg DAILYPRN PRN ORAL Temp > 100.5 07/17/17 19:00 08/16/17 18:59 Acetaminophen (Tylenol) 650 mg Q6H PRN ORAL Moderate Pain (Pain Scale 4-6) 07/17/17 19:15 07/30/17 19:00 Amikacin Sulfate (Amikin) 300 mg Q12HR@10,22 INH 07/17/17 22:00 07/21/17 21:59 07/17/17 22:02 Aspirin (ASA) 81 mg DAILY ORAL 07/18/17 09:00 07/30/17 08:59 07/18/17 09:19 Bisacodyl (Dulcolax) 10 mg DAILYPRN PRN RECTAL constipation 07/17/17 19:00 07/26/17 18:59 Clonidine HCl (Catapres Tab) 0.1 mg Q4H PRN GT bp of 160 syst and above 07/17/17 19:00 07/21/17 18:59 Collagenase (Santyl) 1 applic DAILY TOPIC 07/18/17 09:00 07/29/17 08:59 Dextrose (Dextrose 50%) STAT PRN IV Hypoglycemia 07/17/17 19:00 08/16/17 18:59 Diltiazem HCl (Cardizem) 60 mg EVERY 6 HOURS GT 07/18/17 00:00 08/17/17 00:00 07/18/17 06:08 Famotidine (Pepcid) 20 mg DAILY ORAL 07/18/17 09:00 07/22/17 08:59 07/18/17 09:19 Fluconazole/ Sodium Chloride 100 ml @ 100 mls/hr Q24H IV 07/18/17 13:00 07/20/17 12:59 Heparin Sodium (Porcine) (Heparin 5000 units/ml) 5,000 units EVERY 12 HOURS SUBQ 07/17/17 21:00 07/21/17 08:59 07/18/17 09:20 Hydralazine HCl (Apresoline) 50 mg Q8HR GT 07/17/17 22:00 08/15/17 21:59 07/18/17 06:08 Insulin Aspart (NovoLOG) EVERY 6 HOURS SUBQ 07/18/17 00:00 08/17/17 00:00 07/18/17 06:09 Insulin Detemir (Levemir) 15 units QHS SUBQ 07/17/17 21:00 08/03/17 20:59 07/17/17 21:04 Levalbuterol HCl (Xopenex) 1.25 mg Q4HRT HHN 07/17/17 19:00 07/20/17 10:59 07/18/17 08:04 Levothyroxine Sodium (Synthroid) 50 mcg ACBREAKFAST GT 07/18/17 06:30 07/21/17 06:29 1/31/18 06:08 Metoprolol Tartrate (Lopressor) 100 mg EVERY 12 HOURS GT 07/17/17 21:00 08/03/17 20:59 07/18/17 09:19 Morphine Sulfate (Morphine Sulfate) 2 mg Q3H PRN IVP Severe Pain (Pain Scale 7-10) 07/17/17 20:45 07/23/17 17:44 Nitroglycerin (Ntg) 0.4 mg Q5M PRN SL CHEST PAIN 07/17/17 18:00 07/21/17 20:59 Sodium Chloride 1,000 ml @ 75 mls/hr [id number] IV 07/17/17 19:00 08/03/17 18:59 07/18/17 06:10 Laboratory Tests 07/18/17 04:00: Arterial Blood pH 7.455H, Arterial Blood Partial Pressure CO2 40.5, Arterial Blood Partial Pressure O2 115.7H, Arterial Blood HCO3 27.8H, Arterial Blood Oxygen Saturation 98.1H, Arterial Blood Base Excess 3.6, Khang Test Positive 07/18/17 05:55: White Blood Count 10.7, Red Blood Count 2.88L, Hemoglobin 8.2L, Hematocrit 26.3L , Mean Corpuscular Volume 91, Mean Corpuscular Hemoglobin 28.3, Mean Corpuscular Hemoglobin Concent 31.0L, Red Cell Distribution Width 14.4, Platelet Count 442, Mean Platelet Volume 5.6L, Neutrophils (%) (Auto) 80.8H, Lymphocytes (%) (Auto) 11.7L, Monocytes (%) (Auto) 3.6, Eosinophils (%) (Auto) 3.2H, Basophils (%) (Auto) 0.7, Sodium Level 147H, Potassium Level 4.4, Chloride Level 109H, Carbon Dioxide Level 31, Anion Gap 7, Blood Urea Nitrogen 61H, Creatinine 2.2H, Estimat Glomerular Filtration Rate 30.3, Glucose Level 234H, Calcium Level 8.3L, Phosphorus Level 4.7, Magnesium Level 2.3, Total Bilirubin 0.2, Aspartate Amino Transf (AST/SGOT) 22, Alanine Aminotransferase ( ALT/SGPT) 22, Alkaline Phosphatase 112, Total Protein 7.0, Albumin 1.7L, Globulin 5.3, Albumin/Globulin Ratio 0.3L Height (Feet): 5 Height (Inches): 9.00 Weight (Pounds): 193 Objective exam stable, marquez indwelling, urine is blood-tinged VINCE BARFIELD Jul 18, 2017 09:25
--- NOTE | 2017-07-18 10:57 | Diagnostic Imaging Report ---
Indication: Dyspnea Technique: One view of the chest Comparison: 07/17/2017 Findings: The lungs and pleural spaces are clear. The heart size is enlarged. Tracheostomy again demonstrated. Findings are unchanged Impression: Cardiomegaly. Tracheostomy No acute process
[2017-07-18 12:00] VITALS: BP 136/70
--- NOTE | 2017-07-18 12:25 | Pulmonolgy Critical Care Note ---
Critical Care - Asmt/Plan Problems: (1) Respiratory failure with hypoxia (2) ATN (acute tubular necrosis) (3) Urosepsis (4) Non-ST elevation (NSTEMI) myocardial infarction (5) Feeding by G-tube (6) History of CVA (cerebrovascular accident) Respiratory: monitor respiratory rate, CXR Cardiac: continue to monitor HR/BP Infectious Disease: check cultures Gastrointestinal: continue feedings/current rate Endocrine: monitor blood sugar, continue sliding scale insulin Hematologic: monitor H/H, transfuse if hgb<8.5 Neurologic: PRN Ativan, PRN Morphine, keep patient comfortable Prophylaxis: Protonix Notes Reviewed: quality project manager, renal Discussed with: nurses, consultants, residential case managerapartment maintenance manager - Objective Last 24 Hour Vital Signs Date Time Temp Pulse Resp B/P (MAP) Pulse Ox O2 Delivery O2 Flow Rate FiO2 07/18/17 11:01 88 21 100 Mechanical Ventilator 30 07/18/17 10:55 86 18 100 Mechanical Ventilator 30 07/18/17 10:42 88 20 30 07/18/17 09:31 89 20 100 Mechanical Ventilator 30 07/18/17 09:24 82 20 99 Mechanical Ventilator 30 07/18/17 09:19 85 141/68 07/18/17 09:16 83 19 30 07/18/17 08:07 90 20 100 Mechanical Ventilator 30 07/18/17 08:00 88 20 100 Mechanical Ventilator 30 07/18/17 08:00 85 07/18/17 08:00 71 22 141/68 97 Mechanical Ventilator 30 07/18/17 08:00 30 07/18/17 06:50 88 20 30 07/18/17 06:08 145/67 07/18/17 06:08 82 145/67 07/18/17 05:23 82 20 30 07/18/17 04:10 84 20 100 Mechanical Ventilator 30 07/18/17 04:00 88 07/18/17 04:00 98.7 87 20 145/67 99 Mechanical Ventilator 30 07/18/17 04:00 30 07/18/17 03:54 87 27 98 Mechanical Ventilator 30 07/18/17 03:53 88 26 30 07/18/17 01:48 78 19 30 07/18/17 00:09 80 134/69 07/18/17 00:00 30 07/18/17 00:00 98.5 80 23 134/69 99 Mechanical Ventilator 30 07/18/17 00:00 82 07/17/17 23:16 87 26 100 Mechanical Ventilator 30 07/17/17 23:06 72 10 30 07/17/17 23:06 72 17 99 Mechanical Ventilator 30 07/17/17 22:20 78 21 100 Mechanical Ventilator 30 07/17/17 22:13 129/70 07/17/17 22:04 77 17 100 Mechanical Ventilator 30 07/17/17 22:03 77 17 30 07/17/17 22:00 98.1 100 22 129/70 100 Mechanical Ventilator 30 07/17/17 21:02 90 130/71 07/17/17 20:13 85 22 100 Mechanical Ventilator 30 07/17/17 20:00 30 07/17/17 20:00 85 07/17/17 20:00 98.1 89 22 134/67 99 Mechanical Ventilator 30 07/17/17 19:55 82 20 98 Mechanical Ventilator 30 07/17/17 19:52 82 20 30 07/17/17 17:19 90 24 30 07/17/17 17:18 92 130/71 07/17/17 17:00 99.7 90 22 130/71 100 Mechanical Ventilator 30 07/17/17 16:00 99.8 88 25 128/54 99 Mechanical Ventilator 30 07/17/17 16:00 85 07/17/17 16:00 30 07/17/17 15:00 87 24 132/60 99 Mechanical Ventilator 30 07/17/17 14:53 85 26 100 Mechanical Ventilator 30 07/17/17 14:45 86 26 99 Mechanical Ventilator 30 07/17/17 14:36 83 22 30 07/17/17 14:00 84 21 127/57 99 Mechanical Ventilator 30 07/17/17 13:39 83 22 30 07/17/17 13:36 126/66 07/17/17 13:00 82 21 126/66 100 Mechanical Ventilator 30 Status: awake Condition: grave HEENT: atraumatic Neck: full ROM Lungs: clear Heart: HR/BP stable Abdomen: soft, non-tender Extremities: no C/C/E, edema Micro: Microbiology Date/Time Source Procedure Growth Status 07/16/17 22:30 Urine,Clean Catch Urine Culture - Preliminary NO GROWTH Resulted Accucheck: 267 Critical Care - Subjective ROS Limited/Unobtainable: No Condition: critical EKG Rhythm: Sinus Rhythm FI02: 30 Vent Support Breath Rate: 6 Vent Support Mode: CPAP Vent Tidal Volume: 550 Sputum Amount: Moderate PEEP: 5.0 PIP: 15 Tube Feeding Amount: 50 I&O: Intake and Output 07/17/17 07/18/17 19:00 07:00 Intake Total 1535 ml 1675 ml Output Total 895 ml 1150 ml Balance 640 ml 525 ml Free Water 130 ml IV Total 675 ml 900 ml Tube Feeding 550 ml 525 ml Other 180 ml 250 ml Output Urine Total 895 ml 1150 ml # Bowel Movements 1 1 CXR: Trach in place ET-Tube: 7.5 ET Position: 25 Labs: Laboratory Tests Test 07/18/17 04:00 07/18/17 05:55 Arterial Blood pH 7.455 (7.350-7.450) Arterial Blood Partial Pressure CO2 40.5 mmHg (35.0-45.0) Arterial Blood Partial Pressure O2 115.7 mmHg (75.0-100.0) H Arterial Blood HCO3 27.8 mmol/L (22.0-26.0) H Arterial Blood Oxygen Saturation 98.1 % (92.0-98.0) H Arterial Blood Base Excess 3.6 Khang Test Positive White Blood Count 10.7 K/UL (4.8-10.8) Red Blood Count 2.88 M/UL (4.70-6.10) L Hemoglobin 8.2 G/DL (14.2-18.0) L Hematocrit 26.3 % (42.0-52.0) L Mean Corpuscular Volume 91 FL (80-99) Mean Corpuscular Hemoglobin 28.3 PG (27.0-31.0) Mean Corpuscular Hemoglobin Concent 31.0 G/DL (32.0-36.0) L Red Cell Distribution Width 14.4 % (11.6-14.8) Platelet Count 442 K/UL (150-450) Mean Platelet Volume 5.6 FL (6.5-10.1) L Neutrophils (%) (Auto) 80.8 % (45.0-75.0) H Lymphocytes (%) (Auto) 11.7 % (20.0-45.0) L Monocytes (%) (Auto) 3.6 % (1.0-10.0) Eosinophils (%) (Auto) 3.2 % (0.0-3.0) H Basophils (%) (Auto) 0.7 % (0.0-2.0) Sodium Level 147 MMOL/L (136-145) H Potassium Level 4.4 MMOL/L (3.5-5.1) Chloride Level 109 MMOL/L (98-107) H Carbon Dioxide Level 31 MMOL/L (21-32) Anion Gap 7 mmol/L (5-15) Blood Urea Nitrogen 61 mg/dL (7-18) H Creatinine 2.2 MG/DL (0.55-1.30) H Estimat Glomerular Filtration Rate 30.3 mL/min (>60) Glucose Level 234 MG/DL (74-106) H Calcium Level 8.3 MG/DL (8.5-10.1) L Phosphorus Level 4.7 MG/DL (2.5-4.9) Magnesium Level 2.3 MG/DL (1.8-2.4) Total Bilirubin 0.2 MG/DL (0.2-1.0) Aspartate Amino Transf (AST/SGOT) 22 U/L (15-37) Alanine Aminotransferase (ALT/SGPT) 22 U/L (12-78) Alkaline Phosphatase 112 U/L (46-116) Total Protein 7.0 G/DL (6.4-8.2) Albumin 1.7 G/DL (3.4-5.0) L Globulin 5.3 g/dL Albumin/Globulin Ratio 0.3 (1.0-2.7) L JESSE ZAVALA Jul 18, 2017 12:25
--- NOTE | 2017-07-18 12:45 | Nephrology Progress Note ---
Assessment/Plan Problem List: (1) Acute renal failure (2) Respiratory failure requiring intubation (3) Urosepsis (4) Anemia Assessment: worsening (5) Hypoalbuminemia Assessment BOOGIE (acute kidney injury), Cr 2.2 H&H lower Respiratory failure no trached Respiratory failure with hypoxia Aspiration pneumonia, Urosepsis Anemia ACS (acute coronary syndrome), Non St Elevation HI CHF (congestive heart failure) Acute encephalopathy GT feeding LLL atelectesis worsening, Plan plan: Post op / Trach care transfusion for low H&H as needed avoid Nephrotoxics monitor renal parameters Keep BP and BS in check Optimize pulmonary and cardiac support Subjective ROS Limited/Unobtainable: Yes Objective Objective Last 24 Hour Vital Signs Date Time Temp Pulse Resp B/P (MAP) Pulse Ox O2 Delivery O2 Flow Rate FiO2 07/18/17 11:01 88 21 100 Mechanical Ventilator 30 07/18/17 10:55 86 18 100 Mechanical Ventilator 30 07/18/17 10:42 88 20 30 07/18/17 09:31 89 20 100 Mechanical Ventilator 30 07/18/17 09:24 82 20 99 Mechanical Ventilator 30 07/18/17 09:19 85 141/68 07/18/17 09:16 83 19 30 07/18/17 08:07 90 20 100 Mechanical Ventilator 30 07/18/17 08:00 88 20 100 Mechanical Ventilator 30 07/18/17 08:00 85 07/18/17 08:00 71 22 141/68 97 Mechanical Ventilator 30 07/18/17 08:00 30 07/18/17 06:50 88 20 30 07/18/17 06:08 145/67 07/18/17 06:08 82 145/67 07/18/17 05:23 82 20 30 07/18/17 04:10 84 20 100 Mechanical Ventilator 30 07/18/17 04:00 88 07/18/17 04:00 98.7 87 20 145/67 99 Mechanical Ventilator 30 07/18/17 04:00 30 07/18/17 03:54 87 27 98 Mechanical Ventilator 30 07/18/17 03:53 88 26 30 07/18/17 01:48 78 19 30 07/18/17 00:09 80 134/69 07/18/17 00:00 30 07/18/17 00:00 98.5 80 23 134/69 99 Mechanical Ventilator 30 07/18/17 00:00 82 07/17/17 23:16 87 26 100 Mechanical Ventilator 30 07/17/17 23:06 72 10 30 07/17/17 23:06 72 17 99 Mechanical Ventilator 30 07/17/17 22:20 78 21 100 Mechanical Ventilator 30 07/17/17 22:13 129/70 07/17/17 22:04 77 17 100 Mechanical Ventilator 30 07/17/17 22:03 77 17 30 07/17/17 22:00 98.1 100 22 129/70 100 Mechanical Ventilator 30 07/17/17 21:02 90 130/71 07/17/17 20:13 85 22 100 Mechanical Ventilator 30 07/17/17 20:00 30 07/17/17 20:00 85 07/17/17 20:00 98.1 89 22 134/67 99 Mechanical Ventilator 30 07/17/17 19:55 82 20 98 Mechanical Ventilator 30 07/17/17 19:52 82 20 30 07/17/17 17:19 90 24 30 07/17/17 17:18 92 130/71 07/17/17 17:00 99.7 90 22 130/71 100 Mechanical Ventilator 30 07/17/17 16:00 99.8 88 25 128/54 99 Mechanical Ventilator 30 07/17/17 16:00 85 07/17/17 16:00 30 07/17/17 15:00 87 24 132/60 99 Mechanical Ventilator 30 07/17/17 14:53 85 26 100 Mechanical Ventilator 30 07/17/17 14:45 86 26 99 Mechanical Ventilator 30 07/17/17 14:36 83 22 30 07/17/17 14:00 84 21 127/57 99 Mechanical Ventilator 30 07/17/17 13:39 83 22 30 07/17/17 13:36 126/66 07/17/17 13:00 82 21 126/66 100 Mechanical Ventilator 30 Intake and Output 07/17/17 07/18/17 19:00 07:00 Intake Total 1535 ml 1675 ml Output Total 895 ml 1150 ml Balance 640 ml 525 ml Free Water 130 ml IV Total 675 ml 900 ml Tube Feeding 550 ml 525 ml Other 180 ml 250 ml Output Urine Total 895 ml 1150 ml # Bowel Movements 1 1 Laboratory Tests 07/18/17 04:00: Arterial Blood pH 7.455H, Arterial Blood Partial Pressure CO2 40.5, Arterial Blood Partial Pressure O2 115.7H, Arterial Blood HCO3 27.8H, Arterial Blood Oxygen Saturation 98.1H, Arterial Blood Base Excess 3.6, Khang Test Positive 07/18/17 05:55: White Blood Count 10.7, Red Blood Count 2.88L, Hemoglobin 8.2L, Hematocrit 26.3L , Mean Corpuscular Volume 91, Mean Corpuscular Hemoglobin 28.3, Mean Corpuscular Hemoglobin Concent 31.0L, Red Cell Distribution Width 14.4, Platelet Count 442, Mean Platelet Volume 5.6L, Neutrophils (%) (Auto) 80.8H, Lymphocytes (%) (Auto) 11.7L, Monocytes (%) (Auto) 3.6, Eosinophils (%) (Auto) 3.2H, Basophils (%) (Auto) 0.7, Sodium Level 147H, Potassium Level 4.4, Chloride Level 109H, Carbon Dioxide Level 31, Anion Gap 7, Blood Urea Nitrogen 61H, Creatinine 2.2H, Estimat Glomerular Filtration Rate 30.3, Glucose Level 234H, Calcium Level 8.3L, Phosphorus Level 4.7, Magnesium Level 2.3, Total Bilirubin 0.2, Aspartate Amino Transf (AST/SGOT) 22, Alanine Aminotransferase ( ALT/SGPT) 22, Alkaline Phosphatase 112, Total Protein 7.0, Albumin 1.7L, Globulin 5.3, Albumin/Globulin Ratio 0.3L Height (Feet): 5 Height (Inches): 9.00 Weight (Pounds): 193 General Appearance: no apparent distress EENT: other - trach site clean Respiratory/Chest: decreased breath sounds Abdomen: distended Objective no other changes GARCÍA READ Jul 18, 2017 12:45
--- NOTE | 2017-07-18 13:07 | Infectious Diseases Prog Note ---
Assessment/Plan Assessment/Plan Fever, recurrent- possibly post op - r/o new YRAY, r/o pNA, UTI; improving -CXR 07/18: No acute process -07/16 u/a wbc tntc; ucx NTD Tracheitis /bronchitis (+increased secretions, no definitive PNA on CXR) -sp cx PsA (sensi pending), Esbl K.pna (S Amikacin, Ertapenem, Zosyn) -CXR: Increasing right basilar atelectasis. Other stable findings as described , including borderline cardiomegaly Sepsis 2ry to HCAP, s/p Rx -sp cx 06/21: +3 MDR PSA (S. Cefepime, Gentamicin/Amikacin) -u./a WBC 5-10, nit neg, leuk est +1, ucx 10-20K C. albicans (colonzier) -rectal wound cx: ESBL E.coli, PsA (colonizers)- no signs of infection 07/22 CoNS bacteremia- suspect contaminant 06/20 +07/22, 06/21 Neg x4; 07/13 NTD ? UTI : UCx : chinedu ( Albican and Glab. ) leukocytosis-resolved Lactic acidosis- resolved Cdiff neg 06/25 -Neg: HIV ag/ab, RPR, CrAg serum, FTA-ab Acute hypoxic resp failure s/p intubation 06/20- s/p extubation 06/25 -s/p Trach 07/16 BOOGIE Recent gastritis (dx by EGD) Hx of encephalopathy -05/22 CT head: No evidence of acute intracranial hemorrhage, mass effect or cortical edema. MRI may be obtained for more sensitive evaluation as clinically indicated. Stable chronic infarct in the right frontal lobe. Cerebral and cerebellar atrophy greater than expected for age. Clinical correlation recommended. Mild periventricular hypoattenuation suggestive of chronic ischemic microvascular changes. -previous admission:nical correlation recommended. Mild periventricular hypoattenuation suggestive of chronic ischemic microvascular changes. Small area of right frontal encephalomalacia suggestive of old infarct. -UDS neg -TSH normal -Brain MRI: Chronic and age-related changes. Old right frontal infarct. Negative for acute intracranial bleed, mass effect, or acute infarct hx of VRE and MRSA colonization HTN CKD DM2 bipolar dz/schizophrenia GERD cardiac arrhythmia Dementia CAD with prior MN MS osteoporosis asthma VIt D def Hypothyroidism HLD dysphagia s/p GT R MCA CVA with left hemiplegia Plan: - IV Diflucan d# 6 / 7-10 (switch to PO) , and Amikacin INH d# /10 for Resp increased secretions ( PsA, ESBL Klebsiella tracheitis) - 07/09 SP Cefepime d# / , and Amikacin d# 7/ 7 -06/25 SP IV vancomycin #5, Amikacin #5 -06/23 SP Meropenem #3 -06/21 SP Amikacin x1 -f/u cx -Monitor CBC/BMP, temperatures -aspiration precautions - wound care/trach care Subjective Allergies: Coded Allergies: No Known Allergies (Unverified , 05/11/17) Subjective afebrile in 36hrs no leukocytoisis repeat CXR no PNA Objective Vital Signs Last 24 Hour Vital Signs Date Time Temp Pulse Resp B/P (MAP) Pulse Ox O2 Delivery O2 Flow Rate FiO2 07/18/17 12:54 95 22 30 07/18/17 11:01 88 21 100 Mechanical Ventilator 30 07/18/17 10:55 86 18 100 Mechanical Ventilator 30 07/18/17 10:42 88 20 30 07/18/17 09:31 89 20 100 Mechanical Ventilator 30 07/18/17 09:24 82 20 99 Mechanical Ventilator 30 07/18/17 09:19 85 141/68 07/18/17 09:16 83 19 30 07/18/17 08:07 90 20 100 Mechanical Ventilator 30 07/18/17 08:00 88 20 100 Mechanical Ventilator 30 07/18/17 08:00 85 07/18/17 08:00 71 22 141/68 97 Mechanical Ventilator 30 07/18/17 08:00 30 07/18/17 06:50 88 20 30 07/18/17 06:08 145/67 07/18/17 06:08 82 145/67 07/18/17 05:23 82 20 30 07/18/17 04:10 84 20 100 Mechanical Ventilator 30 07/18/17 04:00 88 07/18/17 04:00 98.7 87 20 145/67 99 Mechanical Ventilator 30 07/18/17 04:00 30 07/18/17 03:54 87 27 98 Mechanical Ventilator 30 07/18/17 03:53 88 26 30 07/18/17 01:48 78 19 30 07/18/17 00:09 80 134/69 07/18/17 00:00 30 07/18/17 00:00 98.5 80 23 134/69 99 Mechanical Ventilator 30 07/18/17 00:00 82 07/17/17 23:16 87 26 100 Mechanical Ventilator 30 07/17/17 23:06 72 10 30 07/17/17 23:06 72 17 99 Mechanical Ventilator 30 07/17/17 22:20 78 21 100 Mechanical Ventilator 30 07/17/17 22:13 129/70 07/17/17 22:04 77 17 100 Mechanical Ventilator 30 07/17/17 22:03 77 17 30 07/17/17 22:00 98.1 100 22 129/70 100 Mechanical Ventilator 30 07/17/17 21:02 90 130/71 07/17/17 20:13 85 22 100 Mechanical Ventilator 30 07/17/17 20:00 30 07/17/17 20:00 85 07/17/17 20:00 98.1 89 22 134/67 99 Mechanical Ventilator 30 07/17/17 19:55 82 20 98 Mechanical Ventilator 30 07/17/17 19:52 82 20 30 07/17/17 17:19 90 24 30 07/17/17 17:18 92 130/71 07/17/17 17:00 99.7 90 22 130/71 100 Mechanical Ventilator 30 07/17/17 16:00 99.8 88 25 128/54 99 Mechanical Ventilator 30 07/17/17 16:00 85 07/17/17 16:00 30 07/17/17 15:00 87 24 132/60 99 Mechanical Ventilator 30 07/17/17 14:53 85 26 100 Mechanical Ventilator 30 07/17/17 14:45 86 26 99 Mechanical Ventilator 30 07/17/17 14:36 83 22 30 07/17/17 14:00 84 21 127/57 99 Mechanical Ventilator 30 07/17/17 13:39 83 22 30 07/17/17 13:36 126/66 Height (Feet): 5 Height (Inches): 9.00 Weight (Pounds): 193 Objective HEENT: atraumatic, trach in place Lungs: coarse BS Heart: RRR, no murmurs Abdomen: non-tender, active bowel sounds Extremities: no C/C/E SKin: no rashes Microbiology Date/Time Source Procedure Growth Status 07/16/17 22:30 Urine,Clean Catch Urine Culture - Preliminary NO GROWTH Resulted Laboratory Tests Test 07/18/17 04:00 07/18/17 05:55 Arterial Blood pH 7.455 (7.350-7.450) Arterial Blood Partial Pressure CO2 40.5 mmHg (35.0-45.0) Arterial Blood Partial Pressure O2 115.7 mmHg (75.0-100.0) H Arterial Blood HCO3 27.8 mmol/L (22.0-26.0) H Arterial Blood Oxygen Saturation 98.1 % (92.0-98.0) H Arterial Blood Base Excess 3.6 Khang Test Positive White Blood Count 10.7 K/UL (4.8-10.8) Red Blood Count 2.88 M/UL (4.70-6.10) L Hemoglobin 8.2 G/DL (14.2-18.0) L Hematocrit 26.3 % (42.0-52.0) L Mean Corpuscular Volume 91 FL (80-99) Mean Corpuscular Hemoglobin 28.3 PG (27.0-31.0) Mean Corpuscular Hemoglobin Concent 31.0 G/DL (32.0-36.0) L Red Cell Distribution Width 14.4 % (11.6-14.8) Platelet Count 442 K/UL (150-450) Mean Platelet Volume 5.6 FL (6.5-10.1) L Neutrophils (%) (Auto) 80.8 % (45.0-75.0) H Lymphocytes (%) (Auto) 11.7 % (20.0-45.0) L Monocytes (%) (Auto) 3.6 % (1.0-10.0) Eosinophils (%) (Auto) 3.2 % (0.0-3.0) H Basophils (%) (Auto) 0.7 % (0.0-2.0) Sodium Level 147 MMOL/L (136-145) H Potassium Level 4.4 MMOL/L (3.5-5.1) Chloride Level 109 MMOL/L (98-107) H Carbon Dioxide Level 31 MMOL/L (21-32) Anion Gap 7 mmol/L (5-15) Blood Urea Nitrogen 61 mg/dL (7-18) H Creatinine 2.2 MG/DL (0.55-1.30) H Estimat Glomerular Filtration Rate 30.3 mL/min (>60) Glucose Level 234 MG/DL (74-106) H Calcium Level 8.3 MG/DL (8.5-10.1) L Phosphorus Level 4.7 MG/DL (2.5-4.9) Magnesium Level 2.3 MG/DL (1.8-2.4) Total Bilirubin 0.2 MG/DL (0.2-1.0) Aspartate Amino Transf (AST/SGOT) 22 U/L (15-37) Alanine Aminotransferase (ALT/SGPT) 22 U/L (12-78) Alkaline Phosphatase 112 U/L (46-116) Total Protein 7.0 G/DL (6.4-8.2) Albumin 1.7 G/DL (3.4-5.0) L Globulin 5.3 g/dL Albumin/Globulin Ratio 0.3 (1.0-2.7) L Current Medications Medications (Trade) Dose Ordered Sig/Willem Route PRN Reason Start Time Stop Time Status Last Admin Dose Admin Acetaminophen (Tylenol) 500 mg Q6H PRN ORAL Mild Pain (Pain Scale 1-3) 07/17/17 19:15 07/30/17 19:00 Acetaminophen (Tylenol) 650 mg DAILYPRN PRN ORAL Temp > 100.5 07/17/17 19:00 08/16/17 18:59 Acetaminophen (Tylenol) 650 mg Q6H PRN ORAL Moderate Pain (Pain Scale 4-6) 07/17/17 19:15 07/30/17 19:00 Amikacin Sulfate (Amikin) 300 mg Q12HR@10,22 INH 07/17/17 22:00 07/21/17 21:59 07/18/17 09:24 Aspirin (ASA) 81 mg DAILY ORAL 07/18/17 09:00 07/30/17 08:59 07/18/17 09:19 Bisacodyl (Dulcolax) 10 mg DAILYPRN PRN RECTAL constipation 07/17/17 19:00 07/26/17 18:59 Clonidine HCl (Catapres Tab) 0.1 mg Q4H PRN GT bp of 160 syst and above 07/17/17 19:00 07/21/17 18:59 Collagenase (Santyl) 1 applic DAILY TOPIC 07/18/17 09:00 07/29/17 08:59 Dextrose (Dextrose 50%) STAT PRN IV Hypoglycemia 07/17/17 19:00 08/16/17 18:59 Diltiazem HCl (Cardizem) 60 mg EVERY 6 HOURS GT 07/18/17 00:00 08/17/17 00:00 07/18/17 06:08 Famotidine (Pepcid) 20 mg DAILY ORAL 07/18/17 09:00 07/22/17 08:59 07/18/17 09:19 Fluconazole/ Sodium Chloride 100 ml @ 100 mls/hr Q24H IV 07/18/17 13:00 07/20/17 12:59 Heparin Sodium (Porcine) (Heparin 5000 units/ml) 5,000 units EVERY 12 HOURS SUBQ 07/17/17 21:00 07/21/17 08:59 07/18/17 09:20 Hydralazine HCl (Apresoline) 50 mg Q8HR GT 07/17/17 22:00 08/15/17 21:59 07/18/17 06:08 Insulin Aspart (NovoLOG) EVERY 6 HOURS SUBQ 07/18/17 00:00 08/17/17 00:00 07/18/17 06:09 Insulin Detemir (Levemir) 15 units QHS SUBQ 07/17/17 21:00 08/03/17 20:59 07/17/17 21:04 Levalbuterol HCl (Xopenex) 1.25 mg Q4HRT HHN 07/17/17 19:00 07/20/17 10:59 07/18/17 10:55 Levothyroxine Sodium (Synthroid) 50 mcg ACBREAKFAST GT 07/18/17 06:30 07/21/17 06:29 07/18/17 06:08 Metoprolol Tartrate (Lopressor) 100 mg EVERY 12 HOURS GT 07/17/17 21:00 08/03/17 20:59 07/18/17 09:19 Morphine Sulfate (Morphine Sulfate) 2 mg Q3H PRN IVP Severe Pain (Pain Scale 7-10) 07/17/17 20:45 07/23/17 17:44 Nitroglycerin (Ntg) 0.4 mg Q5M PRN SL CHEST PAIN 07/17/17 18:00 07/21/17 20:59 Sodium Chloride 1,000 ml @ 75 mls/hr [id number] IV 07/17/17 19:00 08/03/17 18:59 07/18/17 06:10 Hellen Hutchison M.D. Jul 18, 2017 13:07
[2017-07-18] MEDS ORDERED: Fluconazole 100mg tab ORAL SCH (14:00)
[2017-07-18 16:00] VITALS: BP 118/64
[2017-07-18] MEDS ORDERED: Tubing IV Secondary IV ONE (17:40)
[2017-07-18] MEDS ORDERED: 1/2 NS 1000ml IV ONE (17:40)
[2017-07-18 20:00] VITALS: BP 138/69
--- NOTE | 2017-07-18 21:15 | General Progress Note ---
Assessment/Plan Assessment/Plan #. Anemia secondary to chronic disease. --> Anemia workup reviewed. --> Hemoglobin has been stable and prbc not needed at this time --> Blood transfusion not required unless symptomatic or hgb <7. Currently >9 --> Trend cbc daily. #. Coagulopathy, malnutrition and vitamin K deficiency. --> administer vitamin K as needed. --> Goal INR between 2 and 3 --> Trend levels daily. #. Leukocytosis, likely secondary to underlying infection, sepsis, and antibiotics. --> has resolved, wbc count wnl --> S/P vancomycin. #. Thrombocytosis, reactive. --> Resolved. Monitor closely. #. Acute hypoxemia, requiring intubation. --> S/P tracheostomy #. Acute kidney injury. #. Dysphagia with gastrostomy tube. #. Cerebrovascular accident with right-sided hemiplegia. #. Acute toxic metabolic encephalopathy. #. Hypothyroidism. #. Atelectasis. --> Chest Xray reveals worsening Subjective Date patient seen: Jul 18, 2017 Constitutional: Denies: no symptoms, chills, diaphoresis, fever, malaise, weakness, other HEENT: Denies: no symptoms, eye pain, blurred vision, tearing, double vision, ear pain, ear discharge, nose pain, nose congestion, throat pain, throat swelling, mouth pain, mouth swelling, other Cardiovascular: Denies: no symptoms, chest pain, edema, irregular heart rate, lightheadedness, palpitations, syncope, other Respiratory: Denies: no symptoms, cough, orthopnea, shortness of breath, SOB with excertion, SOB at rest, sputum, stridor, wheezing, other Gastrointestinal/Abdominal: Denies: no symptoms, abdomen distended, abdominal pain, black stools, tarry stools, blood in stool, constipated, diarrhea, difficulty swallowing, nausea, poor appetite, poor fluid intake, rectal bleeding , vomiting, other Genitourinary: Denies: no symptoms, burning, discharge, frequency, flank pain, hematuria, incontinence, pain, urgency, other Hematologic/Lymphatic: Reports: anemia Allergies: Coded Allergies: No Known Allergies (Unverified , 05/11/17) Subjective S/P trach placement. H/H stable. Pending discharge. Objective Last 24 Hour Vital Signs Date Time Temp Pulse Resp B/P (MAP) Pulse Ox O2 Delivery O2 Flow Rate FiO2 07/18/17 20:02 78 12 30 07/18/17 20:00 97.9 77 12 138/69 98 Mechanical Ventilator 30 07/18/17 20:00 30 07/18/17 19:33 79 19 99 Mechanical Ventilator 30 07/18/17 19:33 77 13 98 Mechanical Ventilator 30 07/18/17 19:33 77 13 30 07/18/17 18:36 74 118/64 07/18/17 16:49 74 19 30 07/18/17 16:00 75 07/18/17 16:00 98.0 74 20 118/64 100 Mechanical Ventilator 30 07/18/17 16:00 30 07/18/17 14:37 79 24 100 Mechanical Ventilator 30 07/18/17 14:34 77 18 30 07/18/17 14:30 75 16 100 Mechanical Ventilator 30 07/18/17 13:55 136/70 07/18/17 13:55 95 136/70 07/18/17 12:54 95 22 30 07/18/17 12:00 78 07/18/17 12:00 30 07/18/17 12:00 98.1 77 20 136/70 100 Mechanical Ventilator 30 07/18/17 11:01 88 21 100 Mechanical Ventilator 30 07/18/17 10:55 86 18 100 Mechanical Ventilator 30 07/18/17 10:42 88 20 30 07/18/17 09:31 89 20 100 Mechanical Ventilator 30 07/18/17 09:24 82 20 99 Mechanical Ventilator 30 07/18/17 09:19 85 141/68 07/18/17 09:16 83 19 30 07/18/17 08:07 90 20 100 Mechanical Ventilator 30 07/18/17 08:00 88 20 100 Mechanical Ventilator 30 07/18/17 08:00 85 07/18/17 08:00 71 22 141/68 97 Mechanical Ventilator 30 07/18/17 08:00 30 07/18/17 06:50 88 20 30 07/18/17 06:08 145/67 07/18/17 06:08 82 145/67 07/18/17 05:23 82 20 30 07/18/17 04:10 84 20 100 Mechanical Ventilator 30 07/18/17 04:00 88 07/18/17 04:00 98.7 87 20 145/67 99 Mechanical Ventilator 30 07/18/17 04:00 30 07/18/17 03:54 87 27 98 Mechanical Ventilator 30 07/18/17 03:53 88 26 30 07/18/17 01:48 78 19 30 07/18/17 00:09 80 134/69 07/18/17 00:00 30 07/18/17 00:00 98.5 80 23 134/69 99 Mechanical Ventilator 30 07/18/17 00:00 82 07/17/17 23:16 87 26 100 Mechanical Ventilator 30 07/17/17 23:06 72 10 30 07/17/17 23:06 72 17 99 Mechanical Ventilator 30 07/17/17 22:20 78 21 100 Mechanical Ventilator 30 07/17/17 22:13 129/70 07/17/17 22:04 77 17 100 Mechanical Ventilator 30 07/17/17 22:03 77 17 30 07/17/17 22:00 98.1 100 22 129/70 100 Mechanical Ventilator 30 Intake and Output 07/17/17 07/18/17 19:00 07:00 Intake Total 1535 ml 1675 ml Output Total 895 ml 1150 ml Balance 640 ml 525 ml Free Water 130 ml IV Total 675 ml 900 ml Tube Feeding 550 ml 525 ml Other 180 ml 250 ml Output Urine Total 895 ml 1150 ml # Bowel Movements 1 1 Laboratory Tests 07/18/17 04:00: Arterial Blood pH 7.455H, Arterial Blood Partial Pressure CO2 40.5, Arterial Blood Partial Pressure O2 115.7H, Arterial Blood HCO3 27.8H, Arterial Blood Oxygen Saturation 98.1H, Arterial Blood Base Excess 3.6, Khang Test Positive 07/18/17 05:55: White Blood Count 10.7, Red Blood Count 2.88L, Hemoglobin 8.2L, Hematocrit 26.3L , Mean Corpuscular Volume 91, Mean Corpuscular Hemoglobin 28.3, Mean Corpuscular Hemoglobin Concent 31.0L, Red Cell Distribution Width 14.4, Platelet Count 442, Mean Platelet Volume 5.6L, Neutrophils (%) (Auto) 80.8H, Lymphocytes (%) (Auto) 11.7L, Monocytes (%) (Auto) 3.6, Eosinophils (%) (Auto) 3.2H, Basophils (%) (Auto) 0.7, Sodium Level 147H, Potassium Level 4.4, Chloride Level 109H, Carbon Dioxide Level 31, Anion Gap 7, Blood Urea Nitrogen 61H, Creatinine 2.2H, Estimat Glomerular Filtration Rate 30.3, Glucose Level 234H, Calcium Level 8.3L, Phosphorus Level 4.7, Magnesium Level 2.3, Total Bilirubin 0.2, Aspartate Amino Transf (AST/SGOT) 22, Alanine Aminotransferase ( ALT/SGPT) 22, Alkaline Phosphatase 112, Total Protein 7.0, Albumin 1.7L, Globulin 5.3, Albumin/Globulin Ratio 0.3L Height (Feet): 5 Height (Inches): 9.00 Weight (Pounds): 193 General Appearance: no apparent distress Respiratory/Chest: decreased breath sounds Abdomen: non tender, soft Dejan Copeland Jul 18, 2017 21:15
--- NOTE | 2017-07-19 15:00 | Progress Note ---
DATE: 07/17/2017 CARDIOLOGY PROGRESS NOTE SUBJECTIVE: The patient is postoperative day #1 following tracheostomy. He remains in the intensive care unit. Surgical intervention was uncomplicated. The patient continues to have excessive secretions. PHYSICAL EXAMINATION: VITAL SIGNS: Blood pressure 142/70, pulse 87, respirations 21, temperature 99.1 degrees. NECK: Ventilated by tracheostomy. LUNGS: Coarse breath sounds. Scattered rhonchi. HEART: Regular rhythm and rate. Normal S1 and S2 with a fourth heart sound. ABDOMEN: Soft. G-tube intact. EXTREMITIES: Trace edema. The patient is somnolent. LABORATORY AND DIAGNOSTIC DATA: White count 8.8 and hemoglobin 8.9. Urinalysis with too numerous to count white cells. Magnesium 2.5. Sodium 150, potassium 4.9, bicarbonate 29, BUN 62 and creatinine 2.3. IMPRESSION: 1. Respiratory failure status post trach. 2. Dysphagia. 3. Dehydration. 4. Hypernatremia. 5. Acute on chronic renal failure. 6. Acute on chronic diastolic congestive heart failure. 7. Secondary sinus tachycardia. 8. Severe protein-calorie malnutrition with third spacing. 9. Paroxysmal atrial tachyarrhythmias. PLAN: 1. Ventilator support. 2. Antimicrobials. 3. Volume support with hypotonic fluids by intravenous route. 4. Protein supplement with nutrition by feeding tube. 5. Continue diltiazem for suppression of atrial tachyarrhythmias as well as beta-blockade for management of above as well as heart failure. Ulisses Gaston M.D. DR: HAYES JOB#: [id number] CC:
--- NOTE | 2017-07-20 12:55 | Progress Note ---
DATE: 07/18/2017 SUBJECTIVE: The patient is awake, alert, afebrile, and hemodynamically stable. PHYSICAL EXAMINATION: VITAL SIGNS: Blood pressure 136/70, pulse 75, respirations 16, and temperature 98.1 degrees. HEENT: Eyes were normal. ENT, mucous membranes were moist and intact. NECK: Supple with no JVD without lymph nodes. Tracheostomy site is clean. LUNGS: Clear without rhonchi, rales, or wheezing. Secretions are small, thin, and waller. HEART: Normal sounds with regular beats. There is no S3, S4, or pericardial rub. ABDOMEN: Soft and nontender with normal bowel sounds. Gastrostomy site is clean. EXTREMITIES: Warm without cyanosis, clubbing, or edema. LABORATORY AND DIAGNOSTIC DATA: Hemoglobin is 8.2, hematocrit 26.3 with MCV of 91, WBC of 10.7, and platelets is 442. His BUN and creatinine is 61 and 2.2 respectively. His sodium is 147, potassium 4.4, chloride 109, and CO2 is 31. His phosphorus is 4.7. Magnesium is 2.3 and calcium is 8.3. SGOT and SGPT and alkaline phosphatase are normal. His albumin is 1.7 and total protein is 7.0. Repeat chest x-ray revealed no acute process anymore in the chest. IMPRESSION: The patient is status post aspiration pneumonia, urosepsis, hematuria, recurrent aspiration. He has now underwent tracheostomy, surgery was uneventful. The patient tolerated the procedure well and currently his lungs are clear and he is hemodynamically stable. Repeat laboratory tests will be done in the morning. Placement of the patient is being searched. Martina Morales M.D. DR: MAHENDRA JOB#: [id number] CC:
--- NOTE | 2017-07-20 12:55 | Progress Note ---
DATE: 07/18/2017 CARDIOLOGY PROGRESS NOTE SUBJECTIVE: The patient remains on ventilator support. He is status post tracheostomy. Blood pressure parameters are stable. OBJECTIVE: LUNGS: Coarse breath sounds. Scattered rhonchi. HEART: Regular rhythm and rate. Normal S1 and S2. ABDOMEN: Soft. EXTREMITIES: Trace edema. LABORATORY AND DIAGNOSTIC DATA: Chest x-ray reveals cardiomegaly, no acute process. White count 10.7 and hemoglobin 8.2. Potassium 4.4, sodium 147, BUN 61 and creatinine 3.2. Albumin 1.7. IMPRESSION: 1. Acute status post tracheostomy. 2. Respiratory failure. 3. Status post acute myocardial infarction. 4. Severe protein-calorie malnutrition. 5. Acute on chronic renal failure. 6. Dehydration. 7. Hyponatremia. 8. Acute on chronic diastolic congestive heart failure. PLAN: 1. Continue current cardiovascular regimen. 2. Continue weaning efforts. 3. Antimicrobials. 4. Respiratory hygiene. 5. Free water replacement. 6. Protein supplement by feeding tube. Ulisses Gaston M.D. DR: HAYES JOB#: [id number] CC:
--- NOTE | 2017-07-20 12:55 | Progress Note ---
DATE: 07/17/2017 NOTE: POOR AUDIO SUBJECTIVE: The patient is awake, alert, afebrile, and hemodynamically stable. There is poor eye contact. He is now out of the ICU. PHYSICAL EXAMINATION: VITAL SIGNS: Blood pressure 130/71, pulse 90, respirations 22, and temperature 98.1. HEENT: Eyes were normal. ENT, mucous membranes were moist and intact. NECK: Supple with no JVD without lymph nodes. Tracheostomy site is clean without bleeding. LUNGS: Clear without rhonchi, rales, or wheezing. HEART: Normal sounds with regular beats. There is no tachycardia at rest. There is no S3, S4, or pericardial rub. ABDOMEN: Soft and nontender with normal bowel sounds. Gastrostomy site is clean. EXTREMITIES: Warm without cyanosis, clubbing, or edema. LABORATORY AND DIAGNOSTIC DATA: Hemoglobin is 8.9, hematocrit 27.9 with MCV of 91, WBC 8.8, and platelets are 377. His BUN and creatinine are 62 and 2.3, respectively. His sodium is 150, potassium 4.9, chloride 111, CO2 is 29, and calcium is 8.4. His phosphorus is 2.5. SGOT, SGPT, and alkaline phosphatase are normal. His proBNP is 5000. Sputum culture from few days ago grew Pseudomonas aeruginosa and Klebsiella pneumoniae. His urine culture grew Scarlet albicans and Scarlet glabrata. His chest x-ray today revealed no acute process, previous study opacity in the right lung nearly completely resolved. IMPRESSION AND PLAN: The patient is now in stable condition. He is afebrile and hemodynamically stable tachycardia. He is currently on amikacin IV piggyback q.12 . The patient was on fluconazole 100 mg IV piggyback q.24 hours. Repeat laboratory tests will be done in the a.m. If the patient's laboratory tests are stable in the a.m., he can be discharged to the extended care facility subacute unit. Martina Morales M.D. DR: HARDY JOB#: [id number] CC:
--- NOTE | 2017-07-20 17:55 | Discharge Summary ---
Discharge Summary Hospital Course Date of Admission Jun 20, 2017 at 00:25 Date of Discharge Jul 18, 2017 at 20:20 Admitting Diagnosis RESP DISTRESS HPI Justin Pimentel is a 62 year old male who was admitted on Jun 20, 2017 at 00:25 for Respiratory Distress Hospital Course [id number] Discharge Discharge Disposition Patient was discharged to SNF/Subacute Facility(03) Discharge Diagnoses: Re Nunn NP Jul 20, 2017 17:55
--- NOTE | 2017-07-21 02:15 | Discharge Summary 2 SIG ---
DATE OF ADMISSION: 06/20/2017 DATE OF DISCHARGE: 07/18/2017 CONSULTANTS: 1. Reji Mcfarlane M.D. 2. Dejan Copeland M.D. 3. Jose Awan M.D. 4. Hellen Hutchison M.D. 5. Judah Henao M.D. 6. Shayan Wright M.D. BRIEF HOSPITAL COURSE: The patient is a 62-year-old male, who is a resident of an extended care facility where he was in a stable condition until one week prior to recent admission. A week ago, he developed sepsis and was transferred to [facility] where he was found to have a stool OB positive and underwent upper gastrointestinal endoscopy findings showed acute gastritis. When he was stable, he was transferred back to the convalescent and within 48 hours, the patient developed tachycardia and fever. Paramedics were then called in. The patient was noted to be hypoxic. On arrival to ED, he required emergent intubation. He was pancultured and was admitted to intensive care unit. Chest x-ray revealed left infrahilar and retrocardiac infiltrate with right basilar atelectasis. He was started empirically on vancomycin and amikacin was switched to meropenem. He was given slow IV hydration for acute kidney injury. He had elevated troponin level and was given anti-platelet therapy. EKG revealed sinus tachycardia with inferior infarction of indeterminate age. He was given pulmonary support. Urine with growth of Scarlet, blood culture showing gram-positive cocci, and sputum culture with MDR Pseudomonas. He has history of encephalopathy. Head CT showed no evidence of acute intracranial hemorrhage, mass effect, or cortical edema. There is a chronic infarct in the right frontal lobe. Meropenem was discontinued and cefepime was added. He came in with multiple DTI pressure ulcer on the heels and foot and an unstageable sacrococcygeal ulcer. He was given wound care. He had episodes of drop in hemoglobin and received blood transfusion. He was assessed to have anemia secondary to chronic disease. He had coagulopathy, INR of 1.2 and was given vitamin K. He was eventually orally extubated on 06/25/2017. Post extubation, respiratory status continued to be guarded. Subsequent serial chest x-ray showed left lung atelectasis and effusion. He was given diuretics and electrolytes were monitored. He had an episode of respiratory distress where he was placed on BiPAP and was eventually taken off BiPAP. He underwent consultation for possible trach placement. On 07/16/2017, a tracheostomy was indicated to protect the patient's airway and to avoid excessive secretions with aspiration. He underwent tracheostomy by Dr. Henao. He also developed hematuria and was seen by Dr. Wright. Cabrera irrigation was done and urine eventually cleared. The patient's tracheostomy was uneventful and the patient is hemodynamically stable. He was eventually discharged to [facility]. FINAL DIAGNOSES: 1. Acute respiratory failure status post tracheostomy. 2. Status post acute myocardial infarction. 3. Acute on chronic renal failure. 4. Dehydration. 5. Acute on chronic diastolic congestive heart failure. 6. Hyponatremia. 7. Dehydration. 8. Dysphagia. 9. Paroxysmal atrial tachycardia. 10. Anemia of chronic disease. 11. Coagulopathy. 12. Reactive thrombocytosis. 13. Cerebrovascular accident with right-sided hemiplegia. 14. Acute toxic metabolic encephalopathy. 15. Hypothyroidism. 16. Tracheitis/bronchitis. 17. Sepsis secondary to healthcare-associated pneumonia. 18. Coagulase-negative Staph bacteremia, suspect contaminant. 19. Possible urinary tract infection with Scarlet. 20. Recent gastritis. 21. Bipolar disorder. 22. Schizophrenia. 23. Chronic kidney disease. 24. Dementia. 25. Coronary artery disease with prior myocardial infarction. 26. Osteoporosis. 27. Vitamin D deficiency. 28. Hyperlipidemia. 29. Gross hematuria. 30. Benign prostatic hypertrophy. 31. Urinary retention. 32. Proteinuria. 33. Multiple deep tissue injury pressure ulcer, present on admission. DISCHARGE DISPOSITION: The patient was discharged to [facility] facility. Martina Morales M.D. I have been assigned to dictate discharge summary on this account and I was not involved in the patient's management. Re Nunn N.P. DR: MAGALI JOB#: [id number] CC: COLLEEN
== END 2017-07-18 20:20 | DRG 4 ==
LOC: EDBD 23:42 → EMR 06-20 00:05 → ICU 06-20 00:25 → EDBEDREQ 06-20 21:08 → 4E 06-26 20:28 → 2W 06-29 23:10 → 4W 07-06 18:43 → ICU 07-16 11:45 → 2W 07-17 17:40
PROC: 0BH17EZ Insertion of Endotracheal Airway into Trachea, Via Natural or Artificial Opening (ICD-10-PCS; principal; 2017-06-20)
PROC: 5A1955Z Respiratory Ventilation, Greater than 96 Consecutive Hours (ICD-10-PCS; principal; 2017-06-20)
PROC: 0B110F4 Bypass Trachea to Cutaneous with Tracheostomy Device, Open Approach (ICD-10-PCS; 2017-07-16)
PROC: 5A1945Z Respiratory Ventilation, 24-96 Consecutive Hours (ICD-10-PCS; 2017-07-16)
DX: A41.9 Sepsis, unspecified organism (principal); I21.4 Non-ST elevation (NSTEMI) myocardial infarction; N17.0 Acute kidney failure with tubular necrosis; J69.0 Pneumonitis due to inhalation of food and vomit; G92 Toxic encephalopathy; E43 Unspecified severe protein-calorie malnutrition; I50.33 Acute on chronic diastolic (congestive) heart failure; J13 Pneumonia due to Streptococcus pneumoniae; J96.01 Acute respiratory failure with hypoxia; N17.9 Acute kidney failure, unspecified; E87.0 Hyperosmolality and hypernatremia; I13.0 Hypertensive heart and chronic kidney disease with heart failure and stage 1 through stage 4 chronic kidney disease, or unspecified chronic kidney disease; E87.2 Acidosis; I69.951 Hemiplegia and hemiparesis following unspecified cerebrovascular disease affecting right dominant side; J98.11 Atelectasis; D68.9 Coagulation defect, unspecified; B37.49 Other urogenital candidiasis; E87.1 Hypo-osmolality and hyponatremia; I47.1 Supraventricular tachycardia; E86.0 Dehydration; D64.9 Anemia, unspecified; Z93.1 Gastrostomy status; E11.22 Type 2 diabetes mellitus with diabetic chronic kidney disease; N18.9 Chronic kidney disease, unspecified; K21.9 Gastro-esophageal reflux disease without esophagitis; F03.90 Unspecified dementia, unspecified severity, without behavioral disturbance, psychotic disturbance, mood disturbance, and anxiety; I25.10 Atherosclerotic heart disease of native coronary artery without angina pectoris; M81.0 Age-related osteoporosis without current pathological fracture; J45.909 Unspecified asthma, uncomplicated; E55.9 Vitamin D deficiency, unspecified; E56.1 Deficiency of vitamin K; E03.9 Hypothyroidism, unspecified; R13.10 Dysphagia, unspecified; F31.9 Bipolar disorder, unspecified; F20.9 Schizophrenia, unspecified; I69.920 Aphasia following unspecified cerebrovascular disease; E88.09 Other disorders of plasma-protein metabolism, not elsewhere classified; G35 Multiple sclerosis; R62.7 Adult failure to thrive; R31.0 Gross hematuria; N40.1 Benign prostatic hyperplasia with lower urinary tract symptoms; R33.8 Other retention of urine; N31.9 Neuromuscular dysfunction of bladder, unspecified; R80.9 Proteinuria, unspecified; J40 Bronchitis, not specified as acute or chronic; R50.9 Fever, unspecified; D47.3 Essential (hemorrhagic) thrombocythemia
CPT/HCPCS: 31500; 36415; 36600; 71045; 76700; 76775; 80048; 80053; 80061; 80076; 80150; 80202; 81001; 81003; 82270; 82378; 82550; 82553; 82607; 82728; 82746; 82803; 82962; 82977; 83540; 83550; 83605; 83615; 83735; 83880; 84100; 84133; 84300; 84443; 84484; 84550; 85007; 85025; 85044; 85060; 85610; 85651; 85730; 86140; 86850; 86900; 86901; 86920; 87040; 87070; 87086; 87181; 87205; 87324; 89050; 93005; 93306; 94002; 94003; 94150; 94640; 94660; 94664; 94760; 99285; J1815; J7620; J8499; S5561